=== PATIENT | female | born 1960 ===

== ENCOUNTER → 2020-06-23 12:51 | Outpatient (BNVA) | payer MEDICARE, MEDICAID, SELFPAY | PROVIDERS: PCP Internal Medicine; Referring Provider Internal Medicine; Visit Provider Nurse Practitioner | DX: K58.2 Mixed irritable bowel syndrome (principal); R14.0 Abdominal distension (gaseous); K21.9 Gastro-esophageal reflux disease without esophagitis; K29.70 Gastritis, unspecified, without bleeding; Z91.09 Other allergy status, other than to drugs and biological substances | CPT/HCPCS: 99214 ==

== ENCOUNTER 2020-06-30 10:08 | Emergency (ER) | payer MEDICARE, MEDICAID, SELFPAY ==
[2020-06-30 10:50] VITALS: BP 157/74; PULSE 60
--- NOTE | 2020-06-30 10:51 | ECG_ITS ---
Test Reason : HEADACHE Blood Pressure : / mmHG Vent. Rate : 063 BPM Atrial Rate : 063 BPM P-R Int : 164 ms QRS Dur : 076 ms QT Int : 408 ms P-R-T Axes : 016 -01 027 degrees QTc Int : 417 ms Normal sinus rhythm Normal ECG When compared with ECG of 07-JUL-2019 09:51, No significant changes seen Referred By: Emily Vieyra Electronically Signed By:EDI LEMOS MD
--- NOTE | 2020-06-30 10:52 | XR_ITS ---
EXAMINATION: CT OF THE ABDOMEN AND PELVIS WITHOUT IV CONTRAST CLINICAL INFORMATION: Right flank pain. Evaluate for stone. COMPARISON: Previous abdominal ultrasound July 2018 and CTA of the chest November 2018 TECHNIQUE: Axial images through the abdomen and pelvis without oral or IV contrast. Sagittal and coronal reconstructions on the technologist workstation were performed. Patient dose 7 1 0 mg/cm. FINDINGS: There are 2 adjacent 3 mm peripheral left lower lobe nodule axial image 62 and 73 series 4. There is a 2 x 4 mm peripheral right lower lobe nodule posterior costophrenic sulcus axial image 84 series 4. Comparison with previous CTA of the chest is difficult to motion artifact at the lung bases. Right lower lobe pulmonary nodule may be seen axial image 295 series 7. The liver is unremarkable. The gallbladder has been removed. There is no biliary duct dilatation. Spleen is unremarkable. The pancreas is unremarkable. The adrenal glands and kidneys are unremarkable. No hydronephrosis or stone is seen. The bladder is unremarkable. The uterus and adnexa are unremarkable. There is fatty infiltration the wall of the right colon. This is a nonspecific finding. No evidence of active colitis is seen. Small and large bowel is otherwise unremarkable. The appendix is unremarkable. The stomach is unremarkable. There is mild diastasis of the rectus muscles and small umbilical hernia containing fat. No ascites or adenopathy is seen. There is a mild thoracolumbar scoliosis. Bony structures are otherwise unremarkable. IMPRESSION: No stone or hydronephrosis. Small bilateral pulmonary nodules.
[2020-06-30 10:56] VITALS: BP 130/71; PULSE 72; RESP 18; TEMP 36.8; O2SAT 100; BMI 34.7
--- NOTE | 2020-06-30 10:56 | ED.HA ---
HPI - Headache General Chief Complaint: Back Pain/Injury Stated Complaint: headache, dizziness Time Seen by Provider: 06/30/20 10:38 Source: patient Mode of arrival: ambulatory Limitations: no limitations History of Present Illness HPI Narrative: 59-year-old female with a past medical history of COPD, asthma, PE, IBS, gallstones, GERD, migraines, gastritis, hypertension presenting to ED complaining of right flank pain radiating to abdomen x1 week. Also reports headache with intermittent dizziness / feels off balance. Admits symptoms started as typical migraine, have just been persistent, unrelieved with Tylenol at home. Headache not maximal at onset. Denies vision changes, fevers/chills, nausea / vomiting, dysuria /hematuria MD elicited complaint: headache Related Data Home Medications Medication Instructions Recorded Confirmed albuterol sulfate mg INHALATION TID PRN 06/23/20 benralizumab 30 mg/mL subcutaneous mg SUBCUT 06/23/20 syringe budesonide-formoterol HFA 80 2 puff INHALATION BID 06/23/20 mcg-4.5 mcg/actuation aerosol inhaler ipratropium 0.5 mg-albuterol 3 mg ml INHALATION Q6H PRN 06/23/20 (2.5 mg base)/3 mL nebulization soln lisinopril 10 mg tablet 10 mg PO DAILY 06/23/20 montelukast 10 mg tablet 10 mg PO DAILY 06/23/20 omalizumab 150 mg subcutaneous mg SUBCUT 06/23/20 solution Previous Rx's Medication Instructions Recorded omeprazole 40 mg capsule,delayed 40 mg PO BID 30 Days #60 cap 06/23/20 release sucralfate 1 gram tablet 1 g PO ONCE #60 tab 06/23/20 Allergies Allergy/AdvReac Type Severity Reaction Status Date / Time vancomycin [VANCOMYCIN] Allergy Severe ANAPHYLAXIS, Verified 06/30/20 10:54 hives aspirin [ASPIRIN] Allergy Intermediate rash, Verified 06/30/20 10:54 asthma codeine [CODEINE] Allergy Mild rash Verified 06/30/20 10:54 egg [EGGS] Allergy Mild VOMITING Verified 06/30/20 10:54 peanut [PEANUTS] Allergy Mild HIVES,DIARR Verified 06/30/20 10:54 HEA seafood Allergy Anaphylaxis Verified 06/30/20 10:54 Review of Systems Review of Systems: Constitutional: No Weight loss, No Fever, No Chills, No Night Sweats Eyes: No Eye Pain, No Vision Changes Cardiovascular: No Chest Pain, SOB chronically, No Dyspnea on Exertion, No Orthopnea, No Edema Respiratory: No Cough, No Sputum, No Wheezing Gastrointestinal: No Nausea, No Vomiting, No Diarrhea, No Constipation, No Abdominal pain, No Hematochezia, No Melena Genitourinary: No irregular bleeding, No Dysuria, No Urinary Frequency, No Hematuria, No Urinary Incontinence, No Urgency, +R Flank Pain, No Urinary Flow Changes, No Hesitancy Musculoskeletal: No joint pain, No Myalgias, No Joint Swelling Skin: No Skin Lesions, No rash Neuro: No Weakness, No Numbness, No Paresthesias, No Loss of Consciousness, + Dizziness, + Headache Yes all other systems are reviewed and are negative [facility] Past Medical History Attestation statement: The following information was validated with the patient. Medical History (Updated 06/30/20 @ 10:58 by Victoria Franco) Hypertension IBS (irritable bowel syndrome) Pre-eclampsia Surgical History (Updated 06/22/20 @ 11:32 by SHYANN Manning) H/O colonoscopy History of section History of cholecystectomy History of surgical removal of pilonidal cyst Hx of esophagogastroduodenoscopy S/P tonsillectomy Family History Family History (Updated 06/22/20 @ 11:34 by SHYANN Manning) Father Heart attack GERD (gastroesophageal reflux disease) Peptic ulcer disease Mother CHF (congestive heart failure) Afib Diverticulitis History of bowel resection Hypothyroid Social History Social History (Updated 06/23/20 @ 13:02 by Brandi Hale MA) Household Members: None Housing: Apartment Alcohol intake: never Smoking Status: Never smoker Use of substances other than those prescribed or required for medical reasons: No Advance Directives: No Advance Directives Information Provided: No Physical Exam Vital Signs: Vital Signs: Vital Signs Temp Pulse Resp BP Pulse Ox 06/30/20 12:19 62 16 153/66 H 100 06/30/20 11:12 63 178/62 H 100 06/30/20 10:56 98.2 F 72 18 130/71 100 Body Mass Index 34.7 Const: General: cooperative and healthy appearing Orientation/consciousness: patient oriented x3 Limitations: no limitations HENMT: Head: Yes normal to inspection Ears: hearing grossly normal bilaterally General nose exam: Normal external nose present Face and sinus: Yes normal facial exam Eyes: General: appearance normal, both eyes and all related structures Pupils: Equal, round and reactive pupils present EOM: EOMs intact bilaterally Neck: Neck: Yes normal visual inspection, Yes full ROM and Yes no meningeal signs Chest: Other: +R lower mid-axially line chest wall ttp Chest palpation & inspection: normal inspection of the chest Resp: Effort & Inspection: normal respiratory effort Auscultation: clear to auscultation bilaterally, no crackles, no rales and no rhonchi Cardio: Rate: regular rate Heart sounds: S1 normal heart sound present and S2 normal heart sound present Peripheral pulses: Peripheral pulses 2+ throughout GI: Inspection: Yes normal to inspection Palpation (GI): Soft to palpation, Tenderness to palpation present (GI) in the epigastrum, no guarding and not rigid : General: Yes CVA tenderness on the right Skin: Rashes: no rashes Wounds: no wounds Neuro: General: patient oriented x3, gait normal, tone normal, moves all extremities, no meningeal signs, no focal motor deficits and CN's II-XI intact bilaterally Cranial nerves: Yes Equal, round and reactive pupils present Gait exam (Neuro): Normal gait present Motor exam (neuro): 5/5 motor strength present throughout Coordination: [id number] test normal Extrem: General: Yes normal to inspection Course Course Course Narrative: -1322-- labs unremarkable, troponin negative, UA negative -CXR without acute disease in the chest. No rib fractures -CTAP without stone or hydronephrosis. Small bilateral pulmonary nodules Reevaluation(s) Reevaluation #1: on re-evaluation patient reports symptomatic improvement. Lab/imaging results discussed with patient including worrisome signs and symptoms and strict return precautions. Patient's still with reproducible rib tenderness. Discussed likely MSK with negative workup, however strict return precautions discussed. She verbalized understanding feel safe for discharge Time: 13:30 MDM - Headache MDM Narrative Medical decision making narrative: 59 year-old female with a past medical history of COPD, asthma, PE, IBS, gallstones, GERD, migraines, gastritis, hypertension presenting to ED complaining of right flank pain radiating to abdomen x1 week. Also reports headache with intermittent dizziness / feels off balance. On exam VSS, NAD, abdomen soft +R Flank and epigastric ttp. no focal neuro deficits. Concern for renal stone/ pyelo vs rib fractures/pneumonia vs migraine headache vs dehydration. Low concern for meningitis /encephalitis /CVT or SAH plan: EKG, labs, UA, CXR/rib series, CT AP, symptomatic treatment, reassess Differential Diagnosis Differential diagnosis: Likely migraine and headache Lab Data Result diagrams: 06/30/20 11:31 06/30/20 11:31 Labs: Lab Results 06/30/20 06/30/20 06/30/20 Range/Units 11:31 11:31 11:31 WBC 4.9 (4.8-10.8) X10*3/uL RBC 4.46 (4.20-5.50) X10*6/uL Hgb 12.8 (12.0-16.0) g/dl Hct 38.0 (37-47) % MCV 85.2 (80-98) fL MCH 28.7 (27.0-33.0) pg MCHC 33.7 (31.0-35.0) g/dl RDW 11.8 (11.0-16.0) % Plt Count 178 (160-400) X10*3/uL MPV 11.7 (9.4-12.3) fL Immature Gran % (Auto) 0.2 (0.0-0.4) % Neut % (Auto) 68.6 (45-73) % Lymph % (Auto) 23.5 (20-40) % [place] % (Auto) 6.1 (2-11) % Eos % (Auto) 1.0 (0-4) % Baso % (Auto) 0.6 (0-2) % Lymph # (Auto) 1.2 (1.2-4.9) X10*3/uL [place] # (Auto) 0.3 (0.1-1.2) X10*3/uL Eos # (Auto) 0.1 (0.0-0.4) X10*3/uL Baso # (Auto) 0.0 (0.0-0.2) X10*3/uL Abs Immat Gran (auto) 0.01 (0.00-0.03) X10*3/uL Absolute Neuts (auto) 3.4 (2.0-8.3) X10*3/uL Absolute Nucleated RBC 0.000 (0.0-0.012) X10*3/uL Nucleated RBC % (auto) 0.0 (0.0-0.2) /100WBC Hold Blue Top SEE NOTE Sodium 141 (135-145) mmol/L Potassium 3.8 (3.3-5.1) mmol/l Chloride 105 (96-108) mmol/L Carbon Dioxide 28 (22-29) mmol/L Anion Gap 12 (12-20) BUN 13 (9-16) mg/dL Creatinine 0.71 (0.5-1.4) mg/dL Estim Creat Clear Calc 76.9 Estimated GFR > 60 Random Glucose 90 (60-115) mg/dL Calcium 8.9 (8.4-10.2) mg/dL Magnesium 1.9 (1.6-2.6) mg/dL Total Bilirubin 0.6 (0.0-1.0) mg/dL Direct Bilirubin 0.2 (0.0-0.5) mg/dL AST 29 (5-31) U/L ALT 29 (0-31) U/L Alkaline Phosphatase 151 H (39-117) U/L Troponin I High Sens (<3.5-17.0) ng/L Total Protein 6.8 (6.5-8.0) g/dL Albumin 4.1 (3.5-5.0) g/dL Lipase 26 (8-78) U/L Urine Color Urine Appearance Urine pH (5.0-8.0) Ur Specific [place] (1.005-1.025) Urine Protein (NEG-TRACE) MG/DL Urine Glucose (UA) (NEG) MG/DL Urine Ketones (NEG) MG/DL Urine Blood (NEG) Urine Nitrite (NEG) Ur Leukocyte Esterase (NEG) 06/30/20 06/30/20 Range/Units 11:31 12:13 WBC (4.8-10.8) X10*3/uL RBC (4.20-5.50) X10*6/uL Hgb (12.0-16.0) g/dl Hct (37-47) % MCV (80-98) fL MCH (27.0-33.0) pg MCHC (31.0-35.0) g/dl RDW (11.0-16.0) % Plt Count (160-400) X10*3/uL MPV (9.4-12.3) fL Immature Gran % (Auto) (0.0-0.4) % Neut % (Auto) (45-73) % Lymph % (Auto) (20-40) % [place] % (Auto) (2-11) % Eos % (Auto) (0-4) % Baso % (Auto) (0-2) % Lymph # (Auto) (1.2-4.9) X10*3/uL [place] # (Auto) (0.1-1.2) X10*3/uL Eos # (Auto) (0.0-0.4) X10*3/uL Baso # (Auto) (0.0-0.2) X10*3/uL Abs Immat Gran (auto) (0.00-0.03) X10*3/uL Absolute Neuts (auto) (2.0-8.3) X10*3/uL Absolute Nucleated RBC (0.0-0.012) X10*3/uL Nucleated RBC % (auto) (0.0-0.2) /100WBC Hold Blue Top Sodium (135-145) mmol/L Potassium (3.3-5.1) mmol/l Chloride (96-108) mmol/L Carbon Dioxide (22-29) mmol/L Anion Gap (12-20) BUN (9-16) mg/dL Creatinine (0.5-1.4) mg/dL Estim Creat Clear Calc Estimated GFR Random Glucose (60-115) mg/dL Calcium (8.4-10.2) mg/dL Magnesium (1.6-2.6) mg/dL Total Bilirubin (0.0-1.0) mg/dL Direct Bilirubin (0.0-0.5) mg/dL AST (5-31) U/L ALT (0-31) U/L Alkaline Phosphatase (39-117) U/L Troponin I High Sens < 3.5 (<3.5-17.0) ng/L Total Protein (6.5-8.0) g/dL Albumin (3.5-5.0) g/dL Lipase (8-78) U/L Urine Color COLORLESS Urine Appearance CLEAR Urine pH 7.0 (5.0-8.0) Ur Specific [place] <= 1.005 (1.005-1.025) Urine Protein NEG (NEG-TRACE) MG/DL Urine Glucose (UA) NEG (NEG) MG/DL Urine Ketones NEG (NEG) MG/DL Urine Blood NEG (NEG) Urine Nitrite NEG (NEG) Ur Leukocyte Esterase NEG (NEG) ECG Data Attestation: I personally reviewed and interpreted this ECG as follows: ECG interpretation date: 06/30/20 Interpretation: normal sinus rhythm. Rate 63. No STEMI. Good tracing Discharge Plan Discharge Prescriptions: No Action Xolair 150 mg recon soln subcut RF: 0 Fasenra 30 mg/mL syringe subcut RF: 0 ipratropium-albuterol 0.5 mg-3 mg(2.5 mg base)/3 mL solution for nebulization inhalation Q6H PRNRF: 0 montelukast 10 mg tablet 10 mg PO DAILY RF: 0 lisinopril 10 mg tablet 10 mg PO DAILY RF: 0 albuterol sulfate 2.5 mg /3 mL (0.083 %) solution for nebulization inhalation TID PRN (Reason: asthma) RF: 0 budesonide-formoterol [Symbicort] 80-4.5 mcg/actuation HFA aerosol inhaler 2 puff inhalation BID RF: 0 omeprazole 40 mg capsule,delayed release(DR/EC) 40 mg PO BID 30 Days Qty: 60 RF: 1 sucralfate [Carafate] 1 gram tablet 1 g PO ONCE Qty: 60 RF: 0
[2020-06-30 11:12] VITALS: BP 178/62; PULSE 63; O2SAT 100
[2020-06-30] MEDS: 0.9 % Sodium Chloride 1,000 ML 999 ML IVCONT (11:33)
[2020-06-30] MEDS: diphenhydrAMINE HCL 50 MG/ML VIAL 25 MG IVPUSH (11:34)
[2020-06-30] MEDS: Metoclopramide HCl 10 MG/2 ML VIAL IVPUSH (11:34)
[2020-06-30 11:39] LABS: MANUAL DIFF FLAG NO
[2020-06-30 11:44] LABS: Basophils Percent Auto 0.6 % (0-2); Eosinophils Absolute Auto 0.1 X10*3/uL (0.0-0.4); Hemoglobin 12.8 g/dl (12.0-16.0); Imm Gran Abs Auto 0.01 X10*3/uL (0.00-0.03); Imm Gran Pct Auto 0.2 % (0.0-0.4); Lymphocytes Absolute Auto 1.2 X10*3/uL (1.2-4.9); Lymphocytes Percent Auto 23.5 % (20-40); Mean Corpuscular HGB Conc 33.7 g/dl (31.0-35.0); Mean Corpuscular Hemoglobin 28.7 pg (27.0-33.0); Mean Corpuscular Volume 85.2 fL (80-98); Mean Platelet Volume 11.7 fL (9.4-12.3); Monocytes Absolute Auto 0.3 X10*3/uL (0.1-1.2); Monocytes Percent Auto 6.1 % (2-11); Neutrophils Absolute Auto 3.4 X10*3/uL (2.0-8.3); Neutrophils Percent Auto 68.6 % (45-73); Platelet Count 178 X10*3/uL (160-400); Red Blood Count 4.46 X10*6/uL (4.20-5.50); Red Cell Distribution Width 11.8 % (11.0-16.0); White Blood Count 4.9 X10*3/uL (4.8-10.8)
[2020-06-30 12:19] VITALS: BP 153/66; PULSE 62; RESP 16; O2SAT 100
[2020-06-30 12:20] LABS: Alanine Aminotransferase 29 U/L (0-31); Albumin Level 4.1 g/dL (3.5-5.0); Alkaline Phosphatase 151 U/L (39-117); Anion Gap 12 (12-20); Aspartate Amino Transferase 29 U/L (5-31); Bilirubin Direct 0.2 mg/dL (0.0-0.5); Bilirubin Total 0.6 mg/dL (0.0-1.0); Blood Urea Nitrogen 13 mg/dL (9-16); Calcium 8.9 mg/dL (8.4-10.2); Carbon Dioxide 28 mmol/L (22-29); Chloride 105 mmol/L (96-108); Creatinine Clr Calc Pharmacy 76.9; Estimated Glomerular Filt Rate > 60; Glucose Random 90 mg/dL (60-115); Lipase 26 U/L (8-78); Magnesium 1.9 mg/dL (1.6-2.6); Potassium 3.8 mmol/l (3.3-5.1); Sodium 141 mmol/L (135-145); Total Protein 6.8 g/dL (6.5-8.0)
[2020-06-30 12:21] LABS: Troponin-I High Sensitivity < 3.5 ng/L (<3.5-17.0)
[2020-06-30 12:22] LABS: Appearance Urine CLEAR; Color Urine COLORLESS; Glucose Urine UA NEG (NEG); Leukocyte Esterase Urine NEG (NEG); Nitrite Urine NEG (NEG); Specific Gravity - Urine <= 1.005 (1.005-1.025); Urine Blood NEG (NEG); Urine Ketones NEG (NEG); Urine Protein NEG (NEG-TRACE)
[2020-06-30 13:47] VITALS: BP 131/73; PULSE 65
[2020-06-30 13:48] VITALS: BP 152/68; PULSE 61
== END 2020-06-30 13:52 | disposition home or self-care (01) ==
PROVIDERS: Physician Assistant; Emergency Provider Emergency Medicine; PCP Internal Medicine
DX: G43.909 Migraine, unspecified, not intractable, without status migrainosus (principal); R10.9 Unspecified abdominal pain; R42 Dizziness and giddiness; I10 Essential (primary) hypertension; J44.9 Chronic obstructive pulmonary disease, unspecified; Z79.899 Other long term (current) drug therapy
CPT/HCPCS: 36415; 71101; 74176; 80048; 80076; 81003; 83690; 83735; 84484; 85025; 93005; 96361; 96374; 96375; 99285; J1200; J2765

== ENCOUNTER → 2020-07-08 12:45 | Outpatient (BNVA) | payer MEDICARE, MEDICAID, SELFPAY | PROVIDERS: PCP Internal Medicine; Visit Provider Nurse Practitioner | DX: K58.2 Mixed irritable bowel syndrome (principal); R14.0 Abdominal distension (gaseous); K21.9 Gastro-esophageal reflux disease without esophagitis; K90.89 Other intestinal malabsorption; Z79.899 Other long term (current) drug therapy; Z90.49 Acquired absence of other specified parts of digestive tract | CPT/HCPCS: 99213 ==

== ENCOUNTER 2020-10-25 13:51 | Emergency (ER) | payer MEDICARE, MEDICAID, SELFPAY ==
--- NOTE | ~2020-10-25 | XR_ITS ---
EXAMINATION: XR CHEST CLINICAL INFORMATION: Cough and shortness of breath COMPARISON: 06/30/2020 TECHNIQUE: Frontal view of the chest was obtained. FINDINGS: The lungs are well expanded. Mild bronchial wall thickening. No consolidation. No edema or effusion. No pneumothorax. The cardiomediastinal silhouette is within normal limits. Mild scoliotic curvature of the spine. XR/XR chest 1V IMPRESSION: No consolidation. Bronchial wall thickening can be seen with a small airways process such as asthma or atypical/viral infection.
[2020-10-25 14:27] VITALS: BP 161/77; PULSE 81; RESP 18; TEMP 36.8; O2SAT 99; BMI 31.2
--- NOTE | 2020-10-25 14:56 | ED_ITS ---
HPI - URI/Sore Throat General Chief Complaint: Upper Respiratory Symptoms Stated Complaint: +covid Time Seen by Provider: 10/25/20 14:28 Source: patient Mode of arrival: ambulatory Limitations: no limitations History of Present Illness HPI Narrative: 60-year-old female with a past medical history of PE not on anticoagulation, asthma, hypertension, gastritis, migraines, osteoporosis, GERD, IBS here with complaints of cough, shortness of breath, right-sided rib pain, nausea and diarrhea for 6 days. Patient although she was diagnosed with COVID 6 days ago. No fevers, chills, leg swelling or pain, chest pain, vomiting or abdominal pain. Finish course of prednisone for 5 days yesterday. Taking albuterol inhaler and nebulizer with continued symptoms. MD elicited complaint: cough Related Data Home Medications Medication Instructions Recorded Confirmed albuterol sulfate 2.5 mg INHALATION TID PRN 06/23/20 07/27/20 budesonide-formoterol HFA 80 2 puff INHALATION BID 06/23/20 07/27/20 mcg-4.5 mcg/actuation aerosol inhaler ipratropium 0.5 mg-albuterol 3 mg 0.5 ml INHALATION Q6H PRN 06/23/20 07/27/20 (2.5 mg base)/3 mL nebulization soln lisinopril 10 mg tablet 10 mg PO DAILY 06/23/20 07/27/20 montelukast 10 mg tablet 10 mg PO DAILY 06/23/20 07/27/20 Previous Rx's Medication Instructions Recorded omeprazole 40 mg capsule,delayed 40 mg PO BID 30 Days #60 cap 06/23/20 release acetaminophen [Tylenol Extra 500 mg PO Q6H PRN #20 tab 06/30/20 Strength] cyclobenzaprine 5 mg PO Q8H PRN 5 Days #14 tab 06/30/20 lidocaine [Lidoderm] 1 patch TOPICAL DAILY PRN #30 ea 06/30/20 MDD remove after 12 hours dicyclomine 10 mg capsule 10 mg PO QID 30 Days #120 cap 07/08/20 sucralfate 1 gram tablet 1 g PO DAILY #60 tab 09/07/20 azithromycin See Rx Instructions .ROUTE 10/25/20 .COMPLEX #6 tab dicyclomine 10 mg PO TID #10 cap 10/25/20 lidocaine [Lidoderm] 1 patch TOPICAL DAILY #15 ea 10/25/20 ondansetron 4 mg PO Q6H PRN #10 tab 10/25/20 Allergies Allergy/AdvReac Type Severity Reaction Status Date / Time vancomycin [VANCOMYCIN] Allergy Severe ANAPHYLAXIS, Verified 06/30/20 10:54 hives aspirin [ASPIRIN] Allergy Intermediate rash, Verified 06/30/20 10:54 asthma codeine [CODEINE] Allergy Mild rash Verified 06/30/20 10:54 egg [EGGS] Allergy Mild VOMITING Verified 06/30/20 10:54 peanut [PEANUTS] Allergy Mild HIVES,DIARR Verified 06/30/20 10:54 HEA seafood Allergy Anaphylaxis Verified 06/30/20 10:54 Review of Systems Review of Systems: Yes all other systems are reviewed and are negative Constitutional: Constitutional: Reports no additional constitutional complaints, Denies body ache(s), Denies chills, Denies fever(s), Denies headache(s) and Denies weakness Eyes: Eyes: Reports no additional eye complaints and Denies change in vision ENT: Reports system reviewed and no additional complaints, except as documente d, Denies dizziness, Denies headache(s), Denies nasal congestion, Denies nasal discharge and Denies neck pain Cardiovascular: Cardiovascular: Reports no additional cardiovascular complaints, Denies chest pain, Denies leg edema and Reports dyspnea Respiratory: Respiratory: Reports no additional respiratory complaints, Reports cough and Reports dyspnea Gastrointestinal: Gastrointestinal: Reports no additional gastrointestinal complaints, Denies abdominal pain, Reports diarrhea, Reports nausea and Denies vomiting Genitourinary: Genitourinary: Reports no additional female genitourinary complaints and Denies urinary incontinence Musculoskeletal: Musculoskeletal: Reports no additional musculoskeletal complaints, Denies back pain, Denies arthralgias, Denies joint swelling, Denies neck pain, Denies numbness and Denies tingling Integumentary/Breasts: Skin/Breast: Reports system reviewed and no additional complaints, except as docu and Denies rash Neurologic: Denies Abnormal speech present, Denies dizziness, Denies headache(s), Denies numbness, Denies tingling and Denies weakness PMFSH Past Medical History Attestation statement: The following information was validated with the patient. Source: old records reviewed and nursing notes reviewed Medical History Hypertension IBS (irritable bowel syndrome) Pre-eclampsia Surgical History H/O colonoscopy History of section History of cholecystectomy History of surgical removal of pilonidal cyst Hx of esophagogastroduodenoscopy S/P tonsillectomy Family History Family History Father Heart attack GERD (gastroesophageal reflux disease) Peptic ulcer disease Mother CHF (congestive heart failure) Afib Diverticulitis History of bowel resection Hypothyroid Maternal Aunt Diabetes Maternal Uncle Cancer Social History Social History Household Members: None Housing: Apartment Alcohol intake: never Smoking Status: Never smoker Advance Directives: No Advance Directives Information Provided: No Physical Exam Vital Signs: Vital Signs: Last Vital Signs Temp 98.2 F 10/25/20 14:27 Pulse 88 10/25/20 16:34 Resp 20 10/25/20 16:34 BP 161/77 H 10/25/20 14:27 Pulse Ox 100 10/25/20 16:34 Body Mass Index 31.2 Const: General: cooperative, healthy appearing, comfortable and no acute distress Orientation/consciousness: patient oriented x3 Limitations: no limitations HENMT: Head: Yes normal to inspection Ears: hearing grossly normal bilaterally General nose exam: Normal external nose present Face and sinus: Yes normal facial exam Mouth: Normal oral and palatal mucosa present Throat: Yes posterior oropharynx normal Eyes: General: appearance normal, both eyes and all related structures Pupils: Equal, round and reactive pupils present Neck: Neck: Yes normal visual inspection Chest: Chest palpation & inspection: normal inspection of the chest Resp: Effort & Inspection: normal respiratory effort Auscultation: clear to auscultation bilaterally Cardio: Rate: regular rate Rhythm: regular rhythm Peripheral pulses: Peripheral pulses 2+ throughout GI: Inspection: Yes normal to inspection Palpation (GI): Soft to palpation and nontender Auscultation: normal bowel sounds Back/Spine/Pelvis: Thoracic/Lumbar Spine: thoracic and lumbar spine normal to inspection Skin: General skin exam: no rashes or lesions noted Neuro: General: patient oriented x3, no focal motor deficits and normal sensation to monofilament Cranial nerves: Yes Equal, round and reactive pupils present Cognition (Neuro): normal cognition Speech: No Abnormal speech present Gait exam (Neuro): Normal gait present Motor exam (neuro): 5/5 motor strength present throughout Extrem: General: Yes normal to inspection, Yes no pedal edema and Yes no calf tenderness Course Course Course Narrative: 60-year-old female known COVID positive here with cough, shortness of breath, diarrhea, nausea and right-sided rib pain x 6 days. No fevers, chills, chest pain, leg swelling or pain. Vital signs stable. Lung sounds clear. Will check chest x-ray, labs. 1600-CXR c/w with atypical or viral PNA. No signs of symptoms of systemic infections. Labs reviewed and unremarkable. D dimer under cut of for VTE. Went to discuss findings with the patient. She tells me she is worried about her IBS and being on antibiotics. We discussed taking a probiotic with the antibiotic as well as food like yogurt and cheese. Concerned for nausea. will give small amount of zofran. Recommended taking all medications with food. Concerned about right sided chest wall pain, discussed using lidoderm patches, OTC medications. Offered cough suppressants but patient declined, we discussed using honey as needed for cough. She tells me she has adequate refills on her albuterol and nebulizer machine at home. She feels she needs oxygen at home however I explained to her that she does not meet requirements for home oxygen as her level is >98% here. LS CTA, speaking full sentences throughout entire discussion. Tolerating PO with no vomiting. Patient also tells me that she lives at home alone and she is worried about going home. I did offer short-term rehab to her but she declined this. I offered case management involvement and home care services which the patient accepted. I spoke to the nurse case manager here in the emergency department who will look at the patient's insurance and set this up for her as what is covered. Reviewed worrisome signs and symptoms of when to return to the emergency department. Comfortable discharge home. MDM - URI/Sore Throat MDM Narrative Medical decision making narrative: Less likely PE with negative d dimer, no hypoxia, tachycardia or clinical signs/symptoms of a DVT. Medical Records Attestation: I reviewed the patient's medical records. Lab Data Attestation: I reviewed the patient's lab results. Result diagrams: 10/25/20 15:05 10/25/20 15:05 Labs: Lab Results 10/25/20 10/25/20 10/25/20 Range/Units 15:05 15:05 15:05 WBC 5.6 (4.8-10.8) X10*3/uL RBC 4.96 (4.20-5.50) X10*6/uL Hgb 13.8 (12.0-16.0) g/dl Hct 41.2 (37-47) % MCV 83.1 (80-98) fL MCH 27.8 (27.0-33.0) pg MCHC 33.5 (31.0-35.0) g/dl RDW 11.7 (11.0-16.0) % Plt Count 201 (160-400) X10*3/uL MPV 11.3 (9.4-12.3) fL Immature Gran % (Auto) 0.2 (0.0-0.4) % Neut % (Auto) 67.7 (45-73) % Lymph % (Auto) 25.4 (20-40) % Mcpherson % (Auto) 5.0 (2-11) % Eos % (Auto) 1.3 (0-4) % Baso % (Auto) 0.4 (0-2) % Lymph # (Auto) 1.4 (1.2-4.9) X10*3/uL Mcpherson # (Auto) 0.3 (0.1-1.2) X10*3/uL Eos # (Auto) 0.1 (0.0-0.4) X10*3/uL Baso # (Auto) 0.0 (0.0-0.2) X10*3/uL Abs Immat Gran (auto) 0.01 (0.00-0.03) X10*3/uL Absolute Neuts (auto) 3.8 (2.0-8.3) X10*3/uL Absolute Nucleated RBC 0.000 (0.0-0.012) X10*3/uL Nucleated RBC % (auto) 0.0 (0.0-0.2) /100WBC PT 13.0 (10.8-13.0) SEC INR 1.1 (0.9-1.1) D-Dimer 211 NG/ML Sodium 139 (135-145) mmol/L Potassium 4.0 (3.3-5.1) mmol/L Chloride 107 (96-108) mmol/L Carbon Dioxide 23 (22-29) mmol/L Anion Gap 13 (12-20) BUN 11 (9-16) mg/dL Creatinine 0.73 (0.5-1.4) mg/dL Estim Creat Clear Calc 72.8 Estimated GFR > 60 Random Glucose 89 (60-115) mg/dL Calcium 8.7 (8.4-10.2) mg/dL Imaging Data Chest x-ray: Attestation: I personally reviewed and interpreted this imaging study as follows: Radiologist's impression: EXAMINATION: XR CHEST CLINICAL INFORMATION: Cough and shortness of breath COMPARISON: 06/30/2020 TECHNIQUE: Frontal view of the chest was obtained. FINDINGS: The lungs are well expanded. Mild bronchial wall thickening. No consolidation. No edema or effusion. No pneumothorax. The cardiomediastinal silhouette is within normal limits. Mild scoliotic curvature of the spine. XR/XR chest 1V IMPRESSION: No consolidation. Bronchial wall thickening can be seen with a small airways process such as asthma or atypical/viral infection. Discharge Plan Discharge Clinical Impression: Viral pneumonia Patient Disposition: Home, Self-Care Instructions: Viral Pneumonia (ED) Additional Instructions: You are positive for COVID-19. You need to quarantine for a total of 10 days from when you tested positive and your symptoms mostly resolved for 24 hours before ending your quarantine. CDC does not recommend retesting for COVID Take Tylenol as needed for pain or fever Increase fluids, rest Start your antibiotics tomorrow. Continue your medications for her asthma For your cough you may take a tbsp of honey at bedtime to assist with this You have been prescribed Lidoderm patches to apply to your ribs to help with the pain You have also been prescribed nausea medicine and medicine to help with your abdominal cramps. We do not recommend taking antidiarrheal medications as this can have side effects which can be life-threatening when you have viral diarrhea. Take a probiotic daily. Case management will reach out to you at home to see if you have any other ad ditional needs at home. Prescriptions: New lidocaine [Lidoderm] 5 % adhesive patch,medicated 1 patch topical DAILY Qty: 15 RF: 0 azithromycin 250 mg tablet See Rx Instructions .ROUTE .COMPLEX Qty: 6 RF: 0 dicyclomine 10 mg capsule 10 mg PO TID Qty: 10 RF: 0 ondansetron 4 mg tablet,disintegrating 4 mg PO Q6H PRN (Reason: nausea and vomiting) Qty: 10 RF: 0 No Action sucralfate 1 gram tablet 1 g PO DAILY Qty: 60 RF: 3 lidocaine [Lidoderm] 5 % adhesive patch,medicated 1 patch topical DAILY MDD remove after 12 hours PRN (Reason: pain) Qty: 30 RF: 0 cyclobenzaprine 5 mg tablet 5 mg PO Q8H PRN (Reason: pain (scale score 7-10)) 5 Days Qty: 14 RF: 0 acetaminophen [Tylenol Extra Strength] 500 mg tablet 500 mg PO Q6H PRN (Reason: pain or fever) Qty: 20 RF: 0 ipratropium-albuterol 0.5 mg-3 mg(2.5 mg base)/3 mL solution for nebulization 0.5 ml inhalation Q6H PRN (Reason: Wheezing) RF: 0 montelukast 10 mg tablet 10 mg PO DAILY RF: 0 lisinopril 10 mg tablet 10 mg PO DAILY RF: 0 albuterol sulfate 2.5 mg /3 mL (0.083 %) solution for nebulization 2.5 mg inhalation TID PRN (Reason: asthma) RF: 0 budesonide-formoterol [Symbicort] 80-4.5 mcg/actuation HFA aerosol inhaler 2 puff inhalation BID RF: 0 omeprazole 40 mg capsule,delayed release(DR/EC) 40 mg PO BID 30 Days Qty: 60 RF: 1 dicyclomine 10 mg capsule 10 mg PO QID 30 Days Qty: 120 RF: 3 Referrals: Iqra Nelson MD [Primary Care Provider] - 2 days Interventions: ED Discharge Assessment Last Done: 10/25/20 16:35 Discharge Date/Time: 10/25/20 16:35
[2020-10-25 15:09] LABS: MANUAL DIFF FLAG NO
[2020-10-25 15:11] LABS: Basophils Percent Auto 0.4 % (0-2); Eosinophils Absolute Auto 0.1 X10*3/uL (0.0-0.4); Eosinophils Percent Auto 1.3 % (0-4); Hematocrit 41.2 % (37-47); Hemoglobin 13.8 g/dl (12.0-16.0); Imm Gran Abs Auto 0.01 X10*3/uL (0.00-0.03); Imm Gran Pct Auto 0.2 % (0.0-0.4); Lymphocytes Absolute Auto 1.4 X10*3/uL (1.2-4.9); Lymphocytes Percent Auto 25.4 % (20-40); Mean Corpuscular HGB Conc 33.5 g/dl (31.0-35.0); Mean Corpuscular Hemoglobin 27.8 pg (27.0-33.0); Mean Corpuscular Volume 83.1 fL (80-98); Mean Platelet Volume 11.3 fL (9.4-12.3); Monocytes Absolute Auto 0.3 X10*3/uL (0.1-1.2); Neutrophils Absolute Auto 3.8 X10*3/uL (2.0-8.3); Neutrophils Percent Auto 67.7 % (45-73); Platelet Count 201 X10*3/uL (160-400); Red Blood Count 4.96 X10*6/uL (4.20-5.50); Red Cell Distribution Width 11.7 % (11.0-16.0); White Blood Count 5.6 X10*3/uL (4.8-10.8)
[2020-10-25 15:31] LABS: Anion Gap 13 (12-20); Blood Urea Nitrogen 11 mg/dL (9-16); Calcium 8.7 mg/dL (8.4-10.2); Carbon Dioxide 23 mmol/L (22-29); Chloride 107 mmol/L (96-108); Creatinine Clr Calc Pharmacy 72.8; Estimated Glomerular Filt Rate > 60; Glucose Random 89 mg/dL (60-115); Sodium 139 mmol/L (135-145)
[2020-10-25 15:38] LABS: INTERNATIONAL NORM RATIO 1.1 (0.9-1.1)
[2020-10-25 15:41] LABS: D Dimer 211 NG/ML
[2020-10-25 16:34] VITALS: PULSE 88; RESP 20; O2SAT 100
--- NOTE | 2020-10-25 17:14 | MHC.CM.ED ---
CM met with pt at nurses request. Pt upset about going home. Very stressed as her and mother are both hospitalized, one a [facility] and one at [facility]. Concerned about COVID diagnosis and wanting to be better now. Also concerned that she has pneumonia and is going home. Pt has script for antibiotics. Pt agreeable to having VNA. Pt a bit weepy with concern over how she will care for family when they come home if she is still sick. CM listened and allowed pt to vent. Reviewed COVID disease process with pt. Pt understands it can take weeks to feel better and that symptoms are treated. If her breathing worsens, pt instructed to return to the ED. Pt in no acute distress, speaking in long sentences. Pt arranging for ride home. Pt agreeable to referral to NA. Referral placed.
== END 2020-10-25 16:35 | disposition home or self-care (01) ==
PROVIDERS: Nurse Practitioner Family; Emergency Provider Emergency Medicine; PCP Internal Medicine
DX: J12.9 Viral pneumonia, unspecified (principal); Z86.16 Personal history of COVID-19; I10 Essential (primary) hypertension; Z79.899 Other long term (current) drug therapy
CPT/HCPCS: 36415; 71045; 80048; 85025; 85379; 85610; 99284

== ENCOUNTER → 2020-11-11 09:23 | Outpatient (BNVA) | payer MEDICARE, MEDICAID, SELFPAY | PROVIDERS: PCP Internal Medicine; Visit Provider Hospitalist | DX: J18.9 Pneumonia, unspecified organism (principal); U07.1 COVID-19; J45.40 Moderate persistent asthma, uncomplicated | CPT/HCPCS: Q3014 ==

== ENCOUNTER 2020-11-12 15:20 | Outpatient (REF) | payer MEDICARE, MEDICAID, SELFPAY ==
--- NOTE | ~2020-11-12 | XR_ITS ---
EXAMINATION: XR CHEST CLINICAL INFORMATION: COVID COMPARISON: 10/25/2020 TECHNIQUE: 2 views of the chest were obtained. FINDINGS: Normal symmetric lung volumes. No parenchymal consolidation. No pleural effusion. No pneumothorax. Cardiomediastinal silhouette and pulmonary vascularity are within normal limits. No acute osseous abnormalities. XR/XR chest 2V IMPRESSION: No acute findings
[2020-11-12 15:55] LABS: MANUAL DIFF FLAG NO
[2020-11-12 15:58] LABS: Basophils Percent Auto 0.1 % (0-2); Hematocrit 44.7 % (37-47); Hemoglobin 14.6 g/dl (12.0-16.0); Imm Gran Abs Auto 0.13 X10*3/uL (0.00-0.03); Lymphocytes Absolute Auto 1.9 X10*3/uL (1.2-4.9); Mean Corpuscular HGB Conc 32.7 g/dl (31.0-35.0); Mean Corpuscular Hemoglobin 27.1 pg (27.0-33.0); Mean Corpuscular Volume 83.1 fL (80-98); Mean Platelet Volume 11.3 fL (9.4-12.3); Monocytes Absolute Auto 0.8 X10*3/uL (0.1-1.2); Monocytes Percent Auto 5.8 % (2-11); Neutrophils Absolute Auto 10.6 X10*3/uL (2.0-8.3); Neutrophils Percent Auto 79.1 % (45-73); Platelet Count 348 X10*3/uL (160-400); Red Blood Count 5.38 X10*6/uL (4.20-5.50); Red Cell Distribution Width 12.5 % (11.0-16.0); White Blood Count 13.4 X10*3/uL (4.8-10.8)
[2020-11-12 16:06] LABS: D Dimer < 200 NG/ML
[2020-11-12 16:28] LABS: Troponin-I High Sensitivity 5.6 ng/L (<3.5-17.0)
[2020-11-12 17:04] LABS: Erythrocyte Sedimentation Rate 5 MM/HR (0-20)
[2020-11-15 08:10] LABS: SARS COV2 IgG Positive (Negative)
[2020-11-15 12:21] LABS: IgA 297 mg/dL (47-310); IgG 886 mg/dL (600-1640); IgM 130 mg/dL (50-300)
== END 2020-11-12 15:21 | disposition home or self-care (01) ==
LOC: HO.LAB 15:20
PROVIDERS: Visit Provider Hospitalist
DX: U07.1 COVID-19 (principal); J18.9 Pneumonia, unspecified organism; Z01.84 Encounter for antibody response examination
CPT/HCPCS: 36415; 71046; 82784; 84484; 85025; 85379; 85652; 86769

== ENCOUNTER → 2020-11-30 09:44 | Outpatient (BNVA) | payer MEDICARE, MEDICAID, SELFPAY | PROVIDERS: PCP Internal Medicine; Visit Provider Internal Medicine Pulmonary Disease | DX: J45.40 Moderate persistent asthma, uncomplicated (principal); B94.8 Sequelae of other specified infectious and parasitic diseases; Z91.09 Other allergy status, other than to drugs and biological substances | CPT/HCPCS: 99212 ==

== ENCOUNTER 2020-12-28 13:26 | Outpatient (REF) | payer MEDICARE, MEDICAID, SELFPAY ==
--- NOTE | ~2020-12-28 | CT_ITS ---
EXAMINATION: CTA OF THE CHEST CLINICAL INFORMATION: Chest pain. COMPARISON: Previous chest x-rays, most recent October 2020 and chest CTA November 2018. TECHNIQUE: Axial images through the chest following IV contrast. Sagittal, coronal and 3-D MIP reconstructions on the technologist workstation were performed. Patient dose 246 mGy-cm. FINDINGS: The pulmonary arteries are well opacified with contrast. There is no evidence of pulmonary embolism. The heart does not appear enlarged. The thoracic aorta is normal in caliber. There is no pericardial effusion. There are no enlarged hilar or mediastinal lymph nodes. There is mild biapical pleural and parenchymal scarring. There is a 3 mm right upper lobe nodule, axial image 155 series 7. There is a 3 mm peripheral or subpleural right middle lobe nodule, axial image series 7. There are 2 small peripheral 3 mm lower lobe nodules axial image 237 series 7. There may be a 4 mm perivascular right lower lobe nodule, axial image 257 series 7. There are 2 small 3 mm left lower lobe nodules, axial image 297 and 309 series 7. These are difficult to compare with previous chest CTA due to motion artifact. Most inferior bilateral lower lobe nodules are seen on previous abdominal and pelvic CT June 2020 and appear unchanged. There is no pleural effusion or pleural thickening. No chest wall mass or enlarged axillary lymph nodes are seen. Review at bone windows demonstrates curvature of the thoracic spine to the right. CT/CT abdomen pelvis w con IMPRESSION: No evidence of pulmonary embolism. Small bilateral pulmonary nodules largest measuring 4 mm. Comparison with previous chest CTA is difficult due to motion artifact. According to the UPDATED 2017 Fleischner Society recommendations, the advised follow-up imaging for less than 6 mm pulmonary nodule: Low risk, no chest CT follow-up needed and high risk, optional chest CT follow-up in one year. EXAMINATION: CT OF THE ABDOMEN AND PELVIS WITH IV CONTRAST CLINICAL INFORMATION: Right upper quadrant pain. COMPARISON: Previous CT of the abdomen and pelvis June 2020. TECHNIQUE: Axial images through the abdomen and pelvis following oral and 85 mL Omnipaque 350 intravenous contrast. Sagittal and coronal reconstructions on the technologist workstation were performed. Patient dose 535 mGy-cm. This CT examination was performed using dose optimization techniques as appropriate, variously including the following: *Automated exposure control *Adjustment of mA and/or kV according to patient size (this includes techniques or standardized protocols for targeted exams where dose is matched to indication/reason for exam; i.e. extremities or head) *Use of iterative reconstruction technique FINDINGS: The liver is unremarkable. The gallbladder has been removed. There is no biliary duct dilatation. The spleen is unremarkable. The pancreas is unremarkable. The adrenal glands and kidneys are unremarkable. The bladder is not optimally distended but appears unremarkable. The uterus and adnexa are unremarkable. The small and large bowel is unremarkable. The appendix is not identified. No inflammatory changes in the right lower quadrant are seen. The stomach is unremarkable. There is mild diastasis of the rectus muscles and small umbilical hernia containing fat. No ascites or adenopathy is seen. Vascular structures are unremarkable. Review at bone windows demonstrates mild curvature of the lower lumbar spine to the right. IMPRESSION: Unremarkable exam.
[2020-12-28] MEDS: Barium Sulfate Oral (Vanilla) 450 ML ORAL.SUSP 900 ML PO (16:06)
[2020-12-28] MEDS: iohexoL 350 MG/ML 100 ML INFUS..BTL IV (16:06)
== END 2020-12-28 13:27 | disposition home or self-care (01) ==
LOC: HO.CT 13:26
PROVIDERS: PCP Emergency Medicine; Visit Provider Emergency Medicine
DX: R07.9 Chest pain, unspecified (principal); R10.11 Right upper quadrant pain
CPT/HCPCS: 71275; 74177; Q9967

== ENCOUNTER → 2021-01-20 10:49 | Outpatient (BNVA) | payer MEDICARE, MEDICAID, SELFPAY | PROVIDERS: PCP Emergency Medicine; Visit Provider Internal Medicine Pulmonary Disease | DX: B94.8 Sequelae of other specified infectious and parasitic diseases (principal); J45.40 Moderate persistent asthma, uncomplicated; Z91.09 Other allergy status, other than to drugs and biological substances | CPT/HCPCS: 99212 ==

== ENCOUNTER 2021-01-24 09:44 | Outpatient (REF) | payer MEDICARE, MEDICAID, SELFPAY | END 2021-01-24 09:45 | disposition home or self-care (01) | LOC: HO.MDS 09:44 | PROVIDERS: PCP Emergency Medicine; Visit Provider Internal Medicine Pulmonary Disease | DX: J45.50 Severe persistent asthma, uncomplicated (principal) | CPT/HCPCS: 96372; J0517; Q0163 ==

== ENCOUNTER → 2021-02-01 12:59 | Outpatient (BNVA) | payer MEDICARE, MEDICAID, SELFPAY | PROVIDERS: PCP Internal Medicine; Visit Provider Internal Medicine Pulmonary Disease | DX: J45.40 Moderate persistent asthma, uncomplicated (principal); Z91.09 Other allergy status, other than to drugs and biological substances | CPT/HCPCS: 99212 ==

== ENCOUNTER → 2021-04-05 13:01 | Outpatient (BNVA) | payer OTHER, SELFPAY | PROVIDERS: PCP Internal Medicine; Visit Provider Internal Medicine Pulmonary Disease | DX: J45.40 Moderate persistent asthma, uncomplicated (principal); Z91.09 Other allergy status, other than to drugs and biological substances; B94.8 Sequelae of other specified infectious and parasitic diseases; R06.00 Dyspnea, unspecified | CPT/HCPCS: 99212 ==

== ENCOUNTER → 2021-04-08 12:21 | Outpatient (BNVA) | payer OTHER, SELFPAY | PROVIDERS: PCP Internal Medicine; Referring Provider Internal Medicine; Visit Provider Nurse Practitioner | DX: K21.9 Gastro-esophageal reflux disease without esophagitis (principal); K90.89 Other intestinal malabsorption; K29.70 Gastritis, unspecified, without bleeding; K80.20 Calculus of gallbladder without cholecystitis without obstruction; R14.0 Abdominal distension (gaseous); R10.9 Unspecified abdominal pain | CPT/HCPCS: 99212 ==

== ENCOUNTER 2021-04-21 12:12 | Outpatient (REF) | payer OTHER, SELFPAY ==
--- NOTE | ~2021-04-21 | MM_ITS ---
EXAMINATION: MM SCREENING DIGITAL BREAST TOMOSYNTHESIS, BILATERAL CLINICAL INFORMATION: Screening. Asymptomatic. Prior history bilateral implants, explanted decades ago. The lifetime risk of breast cancer based on the Tyrer-Cuzick Model is 7%. COMPARISON: Mammography: 01/29/2017 (new baseline) TECHNIQUE: Digital breast tomosynthesis is performed in both the craniocaudal and mediolateral oblique views along with computer-aided detection (CAD). Synthesized 2D images are generated from the tomosynthesis. FINDINGS: The breasts are almost entirely fatty (ACR BI-RADS breast composition Category a). There are no significant masses, abnormal calcifications, or other abnormalities. Intramammary node posterior upper outer left breast is stable. Skin contours are smooth. No significant changes. MM/MM tomosynthesis screening BI IMPRESSION: No mammographic evidence of malignancy. ASSESSMENT: BI-RADS 2: Benign RECOMMENDATION: Routine annual mammography screening. This patient's information was entered into a reminder system with a target due date for their next mammogram.
== END 2021-04-21 12:13 | disposition home or self-care (01) ==
LOC: HO.MAMMO 12:12
PROVIDERS: PCP Internal Medicine; Visit Provider Internal Medicine
DX: Z12.31 Encounter for screening mammogram for malignant neoplasm of breast (principal)
CPT/HCPCS: 77063; 77067

== ENCOUNTER → 2021-05-25 12:26 | Outpatient (REF) | payer OTHER, SELFPAY ==
--- NOTE | 2021-05-25 12:31 | CA_ITS ---
Transthoracic Echocardiogram Patient (Last, First, Middle): Yoselin Rodríguez Brody Gender: Female Date of : 1960 Age: 60 Procedure Date: 05/25/2021 Procedure Type: Transthoracic Echocardiogram Location: OP Height: 152.4 cm Weight: 72.58 kg BSA: 1.70 m2 Heart Rate: bpm BP: 140 / 75 mmHg Induction Heat Treater: YUKO Kim MD: Alejo Chiang MD Bellperson: Efren Rausch MD Symptoms: R06.00 - Dyspnea, unspecified Study Quality: Good ECG Rhythm: Sinus Conclusions: - Essentially normal study with grade 1 diastolic dysfunction Findings Left Ventricle Normal left ventricular size, thickness, and systolic function. The visually estimated ejection fraction is between 60-65%. Spectral Doppler is indicative of an impaired relaxation filling pattern. E/E prime ratio is <8, consistent with normal filling pressures. Right Ventricle Normal right ventricular cavity size and systolic function. Atria Both atria are normal in size. There is no evidence of interatrial shunt. Aortic Valve Normal aortic valve structure and function. There is no aortic valve stenosis. There is no aortic valve regurgitation. Mitral Valve Normal mitral valve structure and function. There is trace mitral valve regurgitation. There is no mitral valve stenosis. Pulmonic Valve The pulmonic valve is likely normal. Tricuspid Valve Likely normal tricuspid valve structure and function. There is trace tricuspid valve regurgitation. The right ventricular systolic pressure is normal. The right ventricular systolic pressure is 16 mmHg. Normal right atrial pressure. There is no evidence of pulmonary hypertension. Great Vessels All visible segments of the aorta are normal in size. The visualized portions of the pulmonary artery and branches are normal. Venous The inferior vena cava is normal in size and collapses greater than 50% with inspiration. Pericardium/Pleural There is no evidence of pericardial effusion. Prior Study Comparison No significant change compared to prior study dated: 03/21/2019. Measurements 2D Linear Measurements IVSd: 0.86 0.6-0.9/0.6-1.0 cm LVIDd: 4.36 3.9-5.3/4.2-5.9 cm LVIDd Index: 2.56 2.4-3.2/2.2-3.1 cm/m2 LVIDs: 2.71 2.0-3.6 cm LVPWd: 0.90 0.7-1.1 cm Ao Root: 2.90 2.1-3.5 cm LA Diam: 3.40 2.7-3.8/3.0-4.0 cm LAIDs Index: 2.00 1.5-2.3 cm/m2 LV Mass: 151.73 67-162/88-224 g LV Mass Index: 89.25 43-95/49-115 g/m2 LVOT Diam: 2.00 3.0+(-)1.3 cm 2D Systolic Function EF 4C: 58.50 >55% EF 2C: 53.80 >55% EF BiP: 55.90 >55% Mitral Valve MV Pk E: 0.74 MV PK A: 0.91 MV Decel Time: 331.00 E/A: 0.80 E'Lateral: 7.51 E'Medial: 6.53 E/E' Med: 11.30 E/E' Lat: 9.80 PHT: 97.00 MVA PHT: 2.27 Decel [place]: 2.23 Aortic Valve AoV Pk Andrew: 1.33 AoV Mn Andrew: 0.96 AoV VTI: 0.34 AoV Pk Grad: 7.00 Aov Mn Grad: 4.00 NUNO Cont.VTI: 2.30 LVOT LVOT Pk Andrew: 0.97 LVOT Mn Andrew: 0.65 LVOT VTI: 0.25 LVOT Pk Grad: 4.00 LVOT Mn Grad: 2.00 LVOT Diam: 2.00 LVOT Area: 3.14 Diastolic Function MV Pk E: 0.74 MV Pk A: 0.91 E/A: 0.80 E'Medial: 6.53 E/E' Med: 11.30 E' Laterial: 7.51 E/E' Lat: 9.80 Right Ventricle TAPSE (mm): 2.48 TVS' Andrew: 9.57 Tricuspid Valve TR Pk Andrew: 1.81 TR Pk Grad: 13.00 RA Press: 3.00 RVSP: 16.00 Great Vessels Aorta Ao Root-2D: 2.90 2.0-3.7 cm Ao Asc: 2.70 2.1-3.4 cm Ao Arch: 2.60 Updated in Other Vendor System with Status of Final Efren Rausch MD electronically signed on 05/26/2021 8:12:06 AM with status of Final
== END ==
LOC: HO.CARD 12:26
PROVIDERS: Visit Provider Internal Medicine Pulmonary Disease
DX: R06.00 Dyspnea, unspecified (principal)
CPT/HCPCS: 93306

== ENCOUNTER → 2021-06-03 14:07 | Outpatient (BNVA) | payer OTHER, SELFPAY | PROVIDERS: PCP Internal Medicine; Visit Provider Nurse Practitioner ==

== ENCOUNTER → 2021-06-13 13:49 | Outpatient (BNVA) | payer OTHER, SELFPAY | PROVIDERS: PCP Internal Medicine; Visit Provider Nurse Practitioner | CPT/HCPCS: Q3014 ==

== ENCOUNTER → 2021-07-01 12:50 | Outpatient (BNVA) | payer OTHER, SELFPAY | PROVIDERS: PCP Internal Medicine; Visit Provider Internal Medicine Pulmonary Disease | DX: J45.40 Moderate persistent asthma, uncomplicated (principal) | CPT/HCPCS: 99212 ==

== ENCOUNTER → 2021-07-11 14:18 | Outpatient (BNVA) | payer OTHER, SELFPAY | PROVIDERS: PCP Internal Medicine; Visit Provider Internal Medicine | DX: G89.29 Other chronic pain (principal); G58.8 Other specified mononeuropathies; J18.9 Pneumonia, unspecified organism; U09.9 Post COVID-19 condition, unspecified; I26.99 Other pulmonary embolism without acute cor pulmonale; I10 Essential (primary) hypertension; K58.2 Mixed irritable bowel syndrome; Z88.8 Allergy status to other drugs, medicaments and biological substances; Z88.6 Allergy status to analgesic agent; Z91.012 Allergy to eggs; Z91.010 Allergy to peanuts; Z91.013 Allergy to seafood | CPT/HCPCS: 99202 ==

== ENCOUNTER 2021-07-18 08:39 | Outpatient (REF) | payer OTHER, SELFPAY ==
[2021-07-18 14:47] LABS: CT PCR NOT DETECTED (Not Detect.); NG PCR NOT DETECTED (Not Detect.)
[2021-07-19 11:12] LABS: BV Int Neg Control Negative (Negative); BV Int Pos Control Positive (Positive)
[2021-07-21 10:56] LABS: HPV 16 RNA NOT DETECTED (NOT DETECTED); HPV mRNA E6/E7 rflx Detected (Not Detected)
== END 2021-07-18 08:40 | disposition home or self-care (01) ==
LOC: HO.LAB 08:39
PROVIDERS: PCP Internal Medicine; Visit Provider Advanced Practice Midwife
DX: Z12.4 Encounter for screening for malignant neoplasm of cervix (principal); Z11.51 Encounter for screening for human papillomavirus (HPV); Z11.3 Encounter for screening for infections with a predominantly sexual mode of transmission; R10.9 Unspecified abdominal pain; N95.0 Postmenopausal bleeding; N90.89 Other specified noninflammatory disorders of vulva and perineum
CPT/HCPCS: 87480; 87491; 87510; 87591; 87624; 87625; 87660; 88142; 99212

== ENCOUNTER 2021-07-22 14:55 | Outpatient (REF) | payer OTHER, SELFPAY ==
--- NOTE | ~2021-07-22 | US_ITS ---
EXAMINATION: US PELVIS CLINICAL INFORMATION: Pelvic peritoneal pain COMPARISON: Previous pelvic ultrasound most recent December [address] of the abdomen and pelvis most recent December 2020 TECHNIQUE: Ultrasound of the pelvis is performed using both transabdominal and transvaginal transducers along with Doppler. Transvaginal imaging is performed due to inadequate visualization transabdominally. FINDINGS: The uterus is anteverted and measures 5.5 x 2.4 x 3.2 cm in dimension. There is no focal uterine lesion. There is fluid seen in the endometrium. The endometrium does not appear thickened. Anterior single thickness endometrium measures 0.2 cm and posterior single thickness endometrium measures 0.3 cm. There is a hypoechoic area seen in the cervix near the endocervical canal. This measures 1.1 x 0.6 x 0.5 cm in sagittal AP and transverse dimension. This is similar to previous exams. The right ovary is not seen. The left ovary is normal-appearing and measures 1.3 x 0.6 x 0.8 cm. There is no fluid in the pelvis. US/US pelvic and transvaginal IMPRESSION: Small amount of fluid in the endometrium. The endometrium does not appear thickened. Stable appearance to the hypoechoic soft tissue in the cervix near the endocervical canal. Normal-appearing left ovary. Right ovary not seen.
== END 2021-07-22 14:56 | disposition home or self-care (01) ==
LOC: HO.US 14:55
PROVIDERS: Visit Provider Advanced Practice Midwife
DX: R10.2 Pelvic and perineal pain (principal)
CPT/HCPCS: 76830; 76856

== ENCOUNTER → 2021-08-05 11:51 | Outpatient (BNVA) | payer OTHER, SELFPAY | PROVIDERS: PCP Internal Medicine; Visit Provider Advanced Practice Midwife | CPT/HCPCS: Q3014 ==

== ENCOUNTER → 2021-08-08 15:19 | Outpatient (BNVA) | payer OTHER, SELFPAY | PROVIDERS: Visit Provider Nurse Practitioner | DX: K58.2 Mixed irritable bowel syndrome (principal); K90.89 Other intestinal malabsorption; K21.9 Gastro-esophageal reflux disease without esophagitis; R10.9 Unspecified abdominal pain; R14.0 Abdominal distension (gaseous) | CPT/HCPCS: Q3014 ==

== ENCOUNTER → 2021-08-22 13:27 | Outpatient (BNVA) | payer OTHER, SELFPAY | PROVIDERS: Visit Provider Internal Medicine | DX: G58.8 Other specified mononeuropathies (principal); R42 Dizziness and giddiness | CPT/HCPCS: Q3014 ==

== ENCOUNTER 2021-09-08 15:43 | Emergency (ER) | payer OTHER, SELFPAY ==
--- NOTE | ~2021-09-08 | XR_ITS ---
EXAMINATION: XR CHEST CLINICAL INFORMATION: Chest pain COMPARISON: 11/12/2020 TECHNIQUE: Frontal view of the chest was obtained. FINDINGS: Cardiac leads overlie the chest. The lungs are well expanded. There is no focal consolidation, edema, or effusion. No pneumothorax. The cardiomediastinal silhouette is within normal limits. No acute osseous abnormality. XR/XR chest 1V IMPRESSION: Clear lungs.
--- NOTE | 2021-09-08 17:15 | ECG_ITS ---
Test Reason : CHEST TIGHTESS Blood Pressure : / mmHG Vent. Rate : 060 BPM Atrial Rate : 060 BPM P-R Int : 156 ms QRS Dur : 076 ms QT Int : 434 ms P-R-T Axes : 026 011 029 degrees QTc Int : 434 ms Normal sinus rhythm Normal ECG When compared with ECG of 30-JUN-2020 11:03, No significant change was found Referred By: Generic ED Physician Electronically Signed By:BRITTON MARTINEZ
[2021-09-08 17:23] VITALS: BP 154/95; PULSE 70; RESP 16; TEMP 37.1; O2SAT 100; BMI 32.1
[2021-09-08 18:00] VITALS: BP 161/92; PULSE 65; RESP 20; O2SAT 100
[2021-09-08 18:02] LABS: MANUAL DIFF FLAG NO
--- NOTE | 2021-09-08 18:04 | ED_ITS ---
HPI - Chest Pain General Chief Complaint: Chest Pain Stated Complaint: CHEST PAIN Time Seen by Provider: 09/08/21 18:04 Source: patient Mode of arrival: ambulatory Limitations: no limitations History of Present Illness HPI narrative: Patient 60 years old female with history of asthma hypertension and COVID in the past comes here for elevated blood pressure for last few weeks usually systolic in 190 range and diastolic in high 90s spoke to her PCP will increase the dose of lisinopril from 10 mg to 20 mg 9 days ago also complaining of headache and chest tightness and shortness of breath since then, on arrival patient blood pressure was 154/95 pulse rate 70 saturating 100% room air seems to be little anxious, was seen at urgent care center was given sublingual nitro by EMS. Patient denies any history of coronary artery disease patient does have history of PE but last CT scan done on 01/05 was negative patient also complaining of headache neck pain multiple complaints Related Data Home Medications Medication Instructions Recorded Confirmed albuterol sulfate 2.5 mg INHALATION TID PRN 06/23/20 08/29/21 ipratropium 0.5 mg-albuterol 3 mg 0.5 ml INHALATION Q6H PRN 06/23/20 08/29/21 (2.5 mg base)/3 mL nebulization soln lisinopril 10 mg tablet 10 mg PO DAILY 06/23/20 08/29/21 albuterol sulfate 90 mcg/actuation 90 mcg INHALATION DAILY 11/11/20 08/29/21 aerosol inhaler budesonide-formoterol HFA 160 2 puff PO BID 11/11/20 08/29/21 mcg-4.5 mcg/actuation aerosol inhaler trazodone 50 mg tablet 50 mg PO BEDTIME 04/08/21 08/29/21 fluoxetine 10 mg capsule 10 mg PO DAILY 06/03/21 08/29/21 calcium carbonate 500 mg-vitamin 1 tab PO BID 08/08/21 08/29/21 D3 10 mcg (400 unit) tablet (Oyster Shell Calcium-Vitamin D3) Previous Rx's Medication Instructions Recorded acetaminophen 500 mg tablet 500 mg PO Q6H PRN #20 tab 06/30/20 (Tylenol Extra Strength) ondansetron 4 mg disintegrating 4 mg PO Q6H PRN #10 tab 10/25/20 tablet dicyclomine 20 mg tablet 20 mg PO QID 30 Days #120 tab 04/08/21 omeprazole 40 mg capsule,delayed 40 mg PO BID 30 Days #60 cap 08/08/21 release sucralfate 1 gram tablet 3 g PO DAILY #60 tab 08/08/21 pregabalin 75 mg capsule 75 mg PO BID #60 cap 08/22/21 hydrochlorothiazide 25 mg tablet 25 mg PO QAM #30 tab 09/08/21 Allergies Allergy/AdvReac Type Severity Reaction Status Date / Time seafood Allergy Severe Anaphylaxis Verified 08/29/21 13:18 vancomycin [VANCOMYCIN] Allergy Severe ANAPHYLAXIS, Verified 08/29/21 13:18 hives aspirin [ASPIRIN] Allergy Intermediate rash, Verified 08/29/21 13:18 asthma codeine [CODEINE] Allergy Mild rash Verified 08/29/21 13:18 egg [EGGS] Allergy Mild VOMITING Verified 08/29/21 13:18 peanut [PEANUTS] Allergy Mild HIVES,DIARR Verified 08/29/21 13:18 HEA Review of Systems Review of Systems: Yes all other systems are reviewed and are negative PMFSH Past Medical History Medical History COVID-19 Hypertension IBS (irritable bowel syndrome) Irritable bowel syndrome with both constipation and diarrhea Pneumonia Pre-eclampsia Surgical History H/O colonoscopy History of section History of cholecystectomy History of surgical removal of pilonidal cyst Hx of esophagogastroduodenoscopy S/P tonsillectomy Family History Family History Father Heart attack GERD (gastroesophageal reflux disease) Peptic ulcer disease Mother CHF (congestive heart failure) Afib Diverticulitis History of bowel resection Hypothyroid COVID-19 Maternal Aunt Diabetes Maternal Uncle Cancer Social History Social History Household Members: None Housing: Apartment Alcohol intake: former Patient Tobacco Use Status: Never used Tobacco Advance Directives: No Advance Directives Information Provided: No Patient : No Physical Exam Vital Signs: Vital Signs: Last Vital Signs Temp 98.7 F 09/08/21 17:23 Pulse 65 09/08/21 18:00 Resp 20 09/08/21 18:00 BP 161/92 H 09/08/21 18:00 Pulse Ox 100 09/08/21 18:00 BMI result Body Mass Index 32.1 Appearance: Alert. Oriented X3. No acute distress. Anxious Eyes: No pallor or icterus ENT: Pharynx normal. Oral Mucosa moist Neck: Normal inspection. Neck supple. CVS: Normal heart rate and rhythm. Pulses normal. Respiratory: No respiratory distress. Equal air entry bilateral, no wheezin g/rales/rhonchi Abdomen: Soft and nontender. Bowel sounds are present, no mass palpable, no CVA tenderness Skin: Skin warm and dry. Normal skin color. Normal skin turgor. Extremities: No lower extremity edema. No calf tenderness Neuro: Oriented X 3. No motor deficit. No sensory deficit. MDM - Chest Pain MDM Narrative Medical decision making narrative: Patient with hypertension mostly systolic advised to increase the dose of lisinopril and add hydrochlorothiazide cardiac workup is negative will discharge patient home for follow-up as outpatient Lab Data Attestation: I reviewed the patient's lab results. Result diagrams: 09/08/21 17:57 09/08/21 17:57 Labs: Lab Results 09/08/21 09/08/21 09/08/21 Range/Units 17:56 17:57 17:57 WBC 5.2 (4.8-10.8) X10*3/uL RBC 4.71 (4.20-5.50) X10*6/uL Hgb 13.3 (12.0-16.0) g/dl Hct 39.1 (37.0-47.0) % MCV 83.0 (80.0-98.0) fL MCH 28.2 (27.0-33.0) pg MCHC 34.0 (31.0-35.0) g/dl RDW 11.9 (11.0-16.0) % Plt Count 202 (160-400) X10*3/uL MPV 11.0 (9.4-12.3) fL Immature Gran % (Auto) 0.8 H (0.0-0.4) % Neut % (Auto) 64.5 (45-73) % Lymph % (Auto) 28.1 (20-40) % Cascade % (Auto) 5.2 (2-11) % Eos % (Auto) 0.8 (0-4) % Baso % (Auto) 0.6 (0-2) % Lymph # (Auto) 1.5 (1.2-4.9) X10*3/uL Cascade # (Auto) 0.3 (0.1-1.2) X10*3/uL Eos # (Auto) 0.0 (0.0-0.4) X10*3/uL Baso # (Auto) 0.0 (0.0-0.2) X10*3/uL Abs Immat Gran (auto) 0.04 H (0.00-0.03) X10*3/uL Absolute Neuts (auto) 3.4 (2.0-8.3) x10*3/uL Absolute Nucleated RBC 0.000 (0.0-0.012) X10*3/uL Nucleated RBC % (auto) 0.0 (0.0-0.2) /100WBC Sodium 140 (135-145) mmol/L Potassium 3.9 (3.3-5.1) mmol/L Chloride 106 (96-108) mmol/L Carbon Dioxide 25 (22-29) mmol/L Anion Gap 13 (12-20) BUN 11 (9-16) mg/dL Creatinine 0.72 (0.5-1.4) mg/dL Estim Creat Clear Calc 71.8 Estimated GFR > 60 Random Glucose 89 (60-115) mg/dL Calcium 9.6 (8.4-10.2) mg/dL Troponin I High Sens (<3.5-17.0) ng/L COVID-19 ([facility]) Negative (Negative) COVID-19 Clin Com See Note 09/08/21 Range/Units 17:57 WBC (4.8-10.8) X10*3/uL RBC (4.20-5.50) X10*6/uL Hgb (12.0-16.0) g/dl Hct (37.0-47.0) % MCV (80.0-98.0) fL MCH (27.0-33.0) pg MCHC (31.0-35.0) g/dl RDW (11.0-16.0) % Plt Count (160-400) X10*3/uL MPV (9.4-12.3) fL Immature Gran % (Auto) (0.0-0.4) % Neut % (Auto) (45-73) % Lymph % (Auto) (20-40) % Cascade % (Auto) (2-11) % Eos % (Auto) (0-4) % Baso % (Auto) (0-2) % Lymph # (Auto) (1.2-4.9) X10*3/uL Cascade # (Auto) (0.1-1.2) X10*3/uL Eos # (Auto) (0.0-0.4) X10*3/uL Baso # (Auto) (0.0-0.2) X10*3/uL Abs Immat Gran (auto) (0.00-0.03) X10*3/uL Absolute Neuts (auto) (2.0-8.3) x10*3/uL Absolute Nucleated RBC (0.0-0.012) X10*3/uL Nucleated RBC % (auto) (0.0-0.2) /100WBC Sodium (135-145) mmol/L Potassium (3.3-5.1) mmol/L Chloride (96-108) mmol/L Carbon Dioxide (22-29) mmol/L Anion Gap (12-20) BUN (9-16) mg/dL Creatinine (0.5-1.4) mg/dL Estim Creat Clear Calc Estimated GFR Random Glucose (60-115) mg/dL Calcium (8.4-10.2) mg/dL Troponin I High Sens < 3.5 (<3.5-17.0) ng/L COVID-19 ([facility]) (Negative) COVID-19 Clin Com ECG Data ECG #1: Attestation: I personally reviewed and interpreted this ECG as follows: Interpretation: Normal sinus rhythm heart rate 60 beats per minute normal intervals normal axis no acute STT wave changes impression normal EKG Discharge Plan Discharge Clinical Impression: HTN (hypertension), benign Patient Disposition: Home, Self-Care Instructions: Chronic Hypertension (ED) Additional Instructions: Continue take 20 mg only lisinopril daily Add hydrochlorothiazide 25 mg daily in the morning Check blood pressure before you take th medicine and after 12 hours If blood pressure consistently higher than 160/90 you may take another 10 mg of lisinopril in the evening time Follow-up with PCP Prescriptions: New hydrochlorothiazide 25 mg tablet 25 mg PO QAM Qty: 30 RF: 1 No Action fluoxetine 10 mg capsule 10 mg PO DAILY RF: 0 acetaminophen [Tylenol Extra Strength] 500 mg tablet 500 mg PO Q6H PRN (Reason: pain or fever) Qty: 20 RF: 0 ondansetron 4 mg tablet,disintegrating 4 mg PO Q6H PRN (Reason: nausea and vomiting) Qty: 10 RF: 0 trazodone 50 mg tablet 50 mg PO BEDTIME RF: 0 dicyclomine 20 mg tablet 20 mg PO QID 30 Days Qty: 120 RF: 6 Hold Instructions: Doctor's Order ipratropium-albuterol 0.5 mg-3 mg(2.5 mg base)/3 mL solution for nebulization 0.5 ml inhalation Q6H PRN (Reason: Wheezing) RF: 0 lisinopril 10 mg tablet 10 mg PO DAILY RF: 0 albuterol sulfate 2.5 mg /3 mL (0.083 %) solution for nebulization 2.5 mg inhalation TID PRN (Reason: asthma) RF: 0 budesonide-formoterol 160-4.5 mcg/actuation HFA aerosol inhaler 2 puff PO BID RF: 0 albuterol sulfate 90 mcg/actuation HFA aerosol inhaler 90 mcg inhalation DAILY RF: 0 calcium carbonate-vitamin D3 [Oyster Shell Calcium-Vit D3] 500 mg(1,250mg) - 400 unit tablet 1 tab PO BID RF: 0 omeprazole 40 mg capsule,delayed release(DR/EC) 40 mg PO BID 30 Days Qty: 60 RF: 6 sucralfate 1 gram tablet 3 g PO DAILY Qty: 60 RF: 6 pregabalin 75 mg capsule 75 mg PO BID Qty: 60 RF: 0 Interventions: ED Discharge Assessment Last Done: 09/08/21 21:39 Discharge Date/Time: 09/08/21 21:40
[2021-09-08 18:20] LABS: Anion Gap 13 (12-20); Basophils Percent Auto 0.6 % (0-2); Blood Urea Nitrogen 11 mg/dL (9-16); Calcium 9.6 mg/dL (8.4-10.2); Carbon Dioxide 25 mmol/L (22-29); Chloride 106 mmol/L (96-108); Creatinine Clr Calc Pharmacy 71.8; Eosinophils Percent Auto 0.8 % (0-4); Estimated Glomerular Filt Rate > 60; Glucose Random 89 mg/dL (60-115); Hematocrit 39.1 % (37.0-47.0); Hemoglobin 13.3 g/dl (12.0-16.0); Imm Gran Abs Auto 0.04 X10*3/uL (0.00-0.03); Imm Gran Pct Auto 0.8 % (0.0-0.4); Lymphocytes Absolute Auto 1.5 X10*3/uL (1.2-4.9); Lymphocytes Percent Auto 28.1 % (20-40); Mean Corpuscular Hemoglobin 28.2 pg (27.0-33.0); Monocytes Absolute Auto 0.3 X10*3/uL (0.1-1.2); Monocytes Percent Auto 5.2 % (2-11); Neutrophils Absolute Auto 3.4 x10*3/uL (2.0-8.3); Neutrophils Percent Auto 64.5 % (45-73); Platelet Count 202 X10*3/uL (160-400); Potassium 3.9 mmol/L (3.3-5.1); Red Blood Count 4.71 X10*6/uL (4.20-5.50); Red Cell Distribution Width 11.9 % (11.0-16.0); Sodium 140 mmol/L (135-145); White Blood Count 5.2 X10*3/uL (4.8-10.8)
[2021-09-08 18:21] LABS: COVID-19 Test Negative (Negative); IDNOW Serial# 9DD0AD1C
[2021-09-08 18:25] LABS: Troponin-I High Sensitivity < 3.5 ng/L (<3.5-17.0)
[2021-09-08] MEDS: Morphine Sulfate 2 MG/ML CARTRIDGE IVPUSH (19:30)
[2021-09-08] MEDS: Acetaminophen 325 MG TABLET 650 MG PO (20:26)
[2021-09-08] MEDS: LORazepam 0.5 MG TABLET PO (20:27)
== END 2021-09-08 21:40 | disposition home or self-care (01) ==
PROVIDERS: Emergency Provider Internal Medicine; PCP Internal Medicine
DX: I10 Essential (primary) hypertension (principal); J45.909 Unspecified asthma, uncomplicated; Z86.711 Personal history of pulmonary embolism; Z79.899 Other long term (current) drug therapy; Z20.822 Contact with and (suspected) exposure to COVID-19
CPT/HCPCS: 36415; 71045; 80048; 84484; 85025; 87635; 93005; 96374; 99284; 99285; J2270

== ENCOUNTER → 2021-10-07 09:18 | Outpatient (BNVA) | payer OTHER, SELFPAY | PROVIDERS: PCP Internal Medicine; Referring Provider Internal Medicine; Visit Provider Nurse Practitioner | DX: K21.9 Gastro-esophageal reflux disease without esophagitis (principal); K90.89 Other intestinal malabsorption; K58.2 Mixed irritable bowel syndrome; R10.9 Unspecified abdominal pain | CPT/HCPCS: 99212 ==

== ENCOUNTER → 2021-11-29 12:04 | Outpatient (BNVA) | payer OTHER, SELFPAY | PROVIDERS: PCP Internal Medicine; Visit Provider Internal Medicine Pulmonary Disease | DX: J45.40 Moderate persistent asthma, uncomplicated (principal); L30.9 Dermatitis, unspecified; Z91.09 Other allergy status, other than to drugs and biological substances | CPT/HCPCS: 99212 ==

== ENCOUNTER 2022-01-11 11:02 | Emergency (ER) | payer OTHER, SELFPAY ==
[2022-01-11 11:44] VITALS: BP 163/87; PULSE 64; RESP 18; TEMP 36.8; O2SAT 100; BMI 31.2
[2022-01-11 12:20] LABS: MANUAL DIFF FLAG NO
[2022-01-11 12:23] LABS: Basophils Absolute Auto 0.1 X10*3/uL (0.0-0.2); Basophils Percent Auto 0.7 % (0-2); Eosinophils Absolute Auto 0.1 X10*3/uL (0.0-0.4); Eosinophils Percent Auto 1.4 % (0-4); Hematocrit 38.6 % (37.0-47.0); Hemoglobin 12.9 g/dl (12.0-16.0); Imm Gran Abs Auto 0.02 X10*3/uL (0.00-0.03); Imm Gran Pct Auto 0.3 % (0.0-0.4); Lymphocytes Absolute Auto 1.6 X10*3/uL (1.2-4.9); Lymphocytes Percent Auto 21.9 % (20-40); Mean Corpuscular HGB Conc 33.4 g/dl (31.0-35.0); Mean Corpuscular Hemoglobin 27.9 pg (27.0-33.0); Mean Corpuscular Volume 83.5 fL (80.0-98.0); Mean Platelet Volume 10.6 fL (9.4-12.3); Monocytes Absolute Auto 0.4 X10*3/uL (0.1-1.2); Neutrophils Absolute Auto 5.2 x10*3/uL (2.0-8.3); Neutrophils Percent Auto 70.7 % (45-73); Platelet Count 221 X10*3/uL (160-400); Red Blood Count 4.62 X10*6/uL (4.20-5.50); Red Cell Distribution Width 12.3 % (11.0-16.0); White Blood Count 7.3 X10*3/uL (4.8-10.8)
[2022-01-11 12:24] LABS: Appearance Urine CLEAR; Color Urine YELLOW; Glucose Urine UA NEG (NEG); Leukocyte Esterase Urine TRACE (NEG); Nitrite Urine NEG (NEG); Specific Gravity - Urine 1.025 (1.005-1.025); Urine Blood NEG (NEG); Urine Ketones NEG (NEG); Urine Protein NEG (NEG-TRACE)
[2022-01-11 12:34] LABS: Calcium Oxalate Crystals Urine TRACE /LPF; RBC Urine 0-2 /HPF (0); Renal Epithelial Cells Urine TRACE /LPF; Squamous Epithelial Cell Urine 1+ /LPF; WBC Urine 0-2 /HPF (0-4)
[2022-01-11 12:48] LABS: Anion Gap 13 (12-20); Blood Urea Nitrogen 19 mg/dL (9-16); Calcium 9.5 mg/dL (8.4-10.2); Carbon Dioxide 27 mmol/L (22-29); Chloride 105 mmol/L (96-108); Estimated Glomerular Filt Rate > 60; Glucose Random 109 mg/dL (60-115); Potassium 4.6 mmol/L (3.3-5.1); Sodium 140 mmol/L (135-145)
== END 2022-01-11 16:16 | disposition left against medical advice (07) ==
PROVIDERS: Emergency Provider Emergency Medicine; PCP Internal Medicine
DX: R31.9 Hematuria, unspecified (principal); Z98.890 Other specified postprocedural states
CPT/HCPCS: 36415; 80048; 81001; 85025; 99283

== ENCOUNTER → 2022-01-13 13:01 | Outpatient (BNVA) | payer OTHER, SELFPAY | PROVIDERS: PCP Internal Medicine; Visit Provider Internal Medicine Pulmonary Disease | DX: J45.40 Moderate persistent asthma, uncomplicated (principal) | CPT/HCPCS: 99211 ==

== ENCOUNTER 2022-02-16 11:38 | Outpatient (REF) | payer OTHER, SELFPAY ==
[2022-02-16 12:06] LABS: MANUAL DIFF FLAG NO
[2022-02-16 12:58] LABS: Basophils Absolute Auto 0.1 X10*3/uL (0.0-0.2); Basophils Percent Auto 0.9 % (0-2); Eosinophils Absolute Auto 0.1 X10*3/uL (0.0-0.4); Eosinophils Percent Auto 1.4 % (0-4); Hematocrit 38.5 % (37.0-47.0); Hemoglobin 12.7 g/dl (12.0-16.0); Imm Gran Abs Auto 0.01 X10*3/uL (0.00-0.03); Imm Gran Pct Auto 0.2 % (0.0-0.4); Lymphocytes Absolute Auto 1.5 X10*3/uL (1.2-4.9); Lymphocytes Percent Auto 26.9 % (20-40); Mean Corpuscular Hemoglobin 28.2 pg (27.0-33.0); Mean Corpuscular Volume 85.6 fL (80.0-98.0); Mean Platelet Volume 11.5 fL (9.4-12.3); Monocytes Absolute Auto 0.3 X10*3/uL (0.1-1.2); Monocytes Percent Auto 5.8 % (2-11); Neutrophils Absolute Auto 3.7 x10*3/uL (2.0-8.3); Neutrophils Percent Auto 64.8 % (45-73); Platelet Count 219 X10*3/uL (160-400); White Blood Count 5.7 X10*3/uL (4.8-10.8)
[2022-02-16 13:00] LABS: D Dimer High Sensitivity 194 NG/ML
[2022-02-16 13:16] LABS: Alanine Aminotransferase 38 U/L (0-31); Alkaline Phosphatase 169 U/L (39-117); Anion Gap 12 (12-20); Aspartate Amino Transferase 31 U/L (5-31); Bilirubin Total 0.4 mg/dL (0.0-1.0); Blood Urea Nitrogen 13 mg/dL (9-16); Calcium 9.3 mg/dL (8.4-10.2); Carbon Dioxide 26 mmol/L (22-29); Chloride 104 mmol/L (96-108); Estimated Glomerular Filt Rate > 60; Glucose Random 95 mg/dL (60-115); Potassium 4.1 mmol/L (3.3-5.1); Sodium 138 mmol/L (135-145); Total Protein 6.9 g/dL (6.5-8.0)
== END 2022-02-16 11:39 | disposition home or self-care (01) ==
LOC: HO.LAB 11:38
PROVIDERS: PCP Internal Medicine; Referring Provider Internal Medicine Pulmonary Disease; Visit Provider Internal Medicine Medical Oncology
DX: I26.99 Other pulmonary embolism without acute cor pulmonale (principal); Z91.09 Other allergy status, other than to drugs and biological substances
CPT/HCPCS: 36415; 80053; 82785; 85025; 85379; 86003

== ENCOUNTER → 2022-03-14 13:02 | Outpatient (BNVA) | payer OTHER, SELFPAY | PROVIDERS: PCP Internal Medicine; Visit Provider Internal Medicine Pulmonary Disease | DX: J45.40 Moderate persistent asthma, uncomplicated (principal); U09.9 Post COVID-19 condition, unspecified; Z91.09 Other allergy status, other than to drugs and biological substances | CPT/HCPCS: 99212 ==

== ENCOUNTER → 2022-04-07 11:23 | Outpatient (BNVA) | payer OTHER, SELFPAY | PROVIDERS: PCP Internal Medicine; Referring Provider Internal Medicine; Visit Provider Nurse Practitioner | DX: K21.9 Gastro-esophageal reflux disease without esophagitis (principal); K58.2 Mixed irritable bowel syndrome; B37.81 Candidal esophagitis; B37.0 Candidal stomatitis | CPT/HCPCS: 99212 ==

== ENCOUNTER 2022-10-25 12:50 | Outpatient (REF) | payer OTHER, SELFPAY ==
--- NOTE | ~2022-10-25 | MM_ITS ---
EXAMINATION: BONE DENSITOMETRY CLINICAL INDICATION: Osteoporosis. COMPARISON: Baseline BD dated 07/09/2018. TECHNIQUE: Using a [employer] DXA System (software version: 13.1) manufactured by [employer], dual-energy x-ray absorptiometry was performed of the lumbar spine and left hip. The images are of good technical quality. Summary results are attached. FINDINGS: AP SPINE L1-L4: Current: BMD 0.787 g/cm2, Z-score -2.2, T-score -3.3, osteoporosis, 1.4% decrease from baseline (<5% change is not significant). Baseline: BMD 0.798 g/cm2. LEFT FEMUR, NECK: Current: BMD 0.719 g/cm2, Z-score -1.1, T-score -2.3, osteopenia. Baseline: BMD 0.690 g/cm2. LEFT FEMUR, TOTAL: Current: BMD 0.677 g/cm2, Z-score -1.8, T-score -2.6, osteoporosis, 1.7% decrease from baseline (<5% change is not significant). Baseline: BMD 0.689 g/cm2. IDENTIFIED RISK FACTORS: Height loss. Low calcium intake. Chronic glucocorticoids. Menopause. Osteoporosis. HISTORY OF FRACTURE: None listed. MEDICATIONS: Calcium supplement and/or multivitamin. Vitamin D. MM/XR DEXA axial skeleton IMPRESSION: 1. DIAGNOSIS: Osteoporosis based on the lowest T-score value of -3.3 in the lumbar spine applying World Health Organization criteria. 2. 10-YEAR FRACTURE RISK PREDICTION, FRAX: According to the guidelines, FRAX calculation should only be performed on patients in the osteopenia bone density category.?Therefore, FRAX was not performed on this patient.? 3. Treatment Recommendations: NOF guidelines recommend consideration for treatment in postmenopausal women and men age 50 and older presenting with the following: -A hip or vertebral (clinical or morphometric) fracture. -T-score less than or equal to -2.5 at the femoral neck or spine after appropriate evaluation to exclude secondary causes. -Low bone mass at the hip or spine and a 10-year fracture probability by FRAX of greater than or equal to 3% for hip fracture or greater than or equal to 20% for major osteoporotic fracture based on the [place] adapted WHO algorithm. 4. Other Recommendations: All treatment decisions require clinical judgment and consideration of individual patient factors, including patient preferences, comorbidities, previous drug use, risk factors not captured in the FRAX model (e.g. frailty, falls, vitamin D deficiency, increased bone turnover, interval significant decline in bone density) and possible under or overestimation of fracture risk by FRAX. Additional medical evaluation for secondary cause of low bone mineral density may be appropriate. FUTURE SCAN RECOMMENDATION: People with diagnosed cases of osteoporosis or at high risk for fracture should have regular bone mineral density tests. For patients eligible for Medicare, routine testing is allowed once every 2 years. The testing frequency can be increased to one year for patients who have rapidly progressing disease, those who are receiving or discontinuing medical therapy to restore bone mass, or have additional risk factors.
== END 2022-10-25 12:51 | disposition home or self-care (01) ==
LOC: HO.MAMMO 12:50
PROVIDERS: PCP Internal Medicine; Visit Provider Internal Medicine
DX: M81.0 Age-related osteoporosis without current pathological fracture (principal)
CPT/HCPCS: 77080

== ENCOUNTER → 2022-11-02 11:07 | Outpatient (BNVA) | payer OTHER, SELFPAY | PROVIDERS: PCP Internal Medicine; Visit Provider Internal Medicine Pulmonary Disease | DX: J45.40 Moderate persistent asthma, uncomplicated (principal); Z91.09 Other allergy status, other than to drugs and biological substances; Z79.899 Other long term (current) drug therapy | CPT/HCPCS: 99212 ==

== ENCOUNTER → 2022-12-15 13:16 | Outpatient (BNVA) | payer OTHER, SELFPAY | PROVIDERS: PCP Internal Medicine; Visit Provider Nurse Practitioner | DX: K21.9 Gastro-esophageal reflux disease without esophagitis (principal); K58.2 Mixed irritable bowel syndrome; B37.81 Candidal esophagitis; B37.0 Candidal stomatitis | CPT/HCPCS: 99212 ==

== ENCOUNTER 2023-01-03 13:05 | Outpatient (REF) | payer OTHER, SELFPAY ==
[2023-01-03 15:39] LABS: Appearance Urine Clear; Color Urine Yellow; Glucose Urine UA Negative (Negative); Leukocyte Esterase Urine Negative (Negative); Nitrite Urine Negative (Negative); Urine Blood Negative (Negative); Urine Ketones Negative (Negative); Urine Protein Negative (Neg-Trace)
== END 2023-01-03 13:06 | disposition home or self-care (01) ==
LOC: HO.LAB 13:05
PROVIDERS: PCP Internal Medicine; Visit Provider Nurse Practitioner
DX: R14.0 Abdominal distension (gaseous) (principal); K21.9 Gastro-esophageal reflux disease without esophagitis; K58.2 Mixed irritable bowel syndrome; R30.9 Painful micturition, unspecified
CPT/HCPCS: 81003; 99212

== ENCOUNTER → 2023-02-01 12:45 | Outpatient (BNVA) | payer OTHER, SELFPAY | PROVIDERS: PCP Internal Medicine; Visit Provider Nurse Practitioner | DX: K58.2 Mixed irritable bowel syndrome (principal); K21.9 Gastro-esophageal reflux disease without esophagitis; R14.0 Abdominal distension (gaseous) | CPT/HCPCS: 99212 ==

== ENCOUNTER 2023-03-26 15:29 | Outpatient (REF) | payer OTHER, SELFPAY ==
--- NOTE | ~2023-03-26 | XR_ITS ---
Examination: XR ribs LT min 3V w CXR1V, XR thoracic spine 2V Indication: Fall. Pain Comparison: 06/30/2020 Technique: Single frontal and 2 lateral views of the thoracic spine obtained. An additional single frontal view of the chest with 4 oblique views the left ribs obtained. Findings: Thoracic spine: There is a mild convex right thoracolumbar curve noted similar to the prior study lungs are otherwise in normal anatomic alignment with no acute fracture or spondylolisthesis. Vertebral body heights and disc heights are preserved. No associated rib abnormality or airspace disease. Surgical clips in the right upper quadrant likely from prior cholecystectomy. Left RIBS: Lungs well-expanded with no superimposed focal infiltrate, effusion, edema, or pneumothorax. Cardiac and mediastinal silhouettes within normal limits for size. I do not appreciate any displaced rib fracture on these views. XR/XR thoracic spine 2V Impression: Chronic appearing changes as described above. I do not appreciate any acute fracture or spondylolisthesis.
--- NOTE | ~2023-03-26 | XR_ITS ---
Examination: XR ribs LT min 3V w CXR1V, XR thoracic spine 2V Indication: Fall. Pain Comparison: 06/30/2020 Technique: Single frontal and 2 lateral views of the thoracic spine obtained. An additional single frontal view of the chest with 4 oblique views the left ribs obtained. Findings: Thoracic spine: There is a mild convex right thoracolumbar curve noted similar to the prior study lungs are otherwise in normal anatomic alignment with no acute fracture or spondylolisthesis. Vertebral body heights and disc heights are preserved. No associated rib abnormality or airspace disease. Surgical clips in the right upper quadrant likely from prior cholecystectomy. Left RIBS: Lungs well-expanded with no superimposed focal infiltrate, effusion, edema, or pneumothorax. Cardiac and mediastinal silhouettes within normal limits for size. I do not appreciate any displaced rib fracture on these views. XR/XR ribs LT min 3V w CXR1V Impression: Chronic appearing changes as described above. I do not appreciate any acute fracture or spondylolisthesis.
== END 2023-03-26 15:30 | disposition home or self-care (01) ==
LOC: HO.HHCX 15:29
PROVIDERS: Visit Provider Internal Medicine
DX: R07.81 Pleurodynia (principal); M54.9 Dorsalgia, unspecified; W19.XXXD Unspecified fall, subsequent encounter
CPT/HCPCS: 71101; 72070

== ENCOUNTER 2023-03-28 13:49 | Outpatient (AMB) | payer OTHER, SELFPAY ==
--- NOTE | 2023-03-28 13:55 | MHC.OFFVIS ---
Intake Vital Signs 03/28/23 13:58 Height 4 ft 11 in Weight 152 lb 1.903 oz BMI 30.7 BP 126/74 Pulse 66 Pulse Oximetry (%) 96 Intake Visit Reasons: post covid Intake Note: pt is doing good on injections but she is noticing she get a rash a week before getting her next dosage Allergies seafood Allergy (Severe, Verified 03/28/23 13:56) Anaphylaxis vancomycin [VANCOMYCIN] Allergy (Severe, Verified 03/28/23 13:56) ANAPHYLAXIS, hives aspirin [ASPIRIN] Allergy (Intermediate, Verified 03/28/23 13:56) rash, asthma codeine [CODEINE] Allergy (Mild, Verified 03/28/23 13:56) rash egg [EGGS] Allergy (Mild, Verified 03/28/23 13:56) VOMITING peanut [PEANUTS] Allergy (Mild, Verified 03/28/23 13:56) HIVES,DIARRHEA mushroom Allergy (Verified 03/28/23 13:56) Rash lactose Adverse Reaction (Intermediate, Verified 03/28/23 13:56) diarrhea HPI post covid HPI Details 62-year-old lady, lifetime nonsmoker, followed for severe persistent asthma, environmental allergies, and post COVID-19 syndrome.? Patient was not able to tolerate immunologic therapy for her asthma including Fasenra and Xolair, but had good response with Dupixent. She also has had significant side effects after COVID vaccines.? She continues to use his Symbicort and albuterol MDI.? At this time his symptoms are well controlled she denies any recent exacerbations. [facility] Medical History (Updated 03/01/23 @ 13:19 by Hugo Tovar MD) COVID-19 Gallstones Hypertension IBS (irritable bowel syndrome) Irritable bowel syndrome with both constipation and diarrhea Pneumonia Pre-eclampsia Surgical History H/O cervical polypectomy H/O colonoscopy History of section History of cholecystectomy History of surgical removal of pilonidal cyst Hx of esophagogastroduodenoscopy S/P tonsillectomy Family History Father Heart attack GERD (gastroesophageal reflux disease) Peptic ulcer disease Mother CHF (congestive heart failure) Afib Diverticulitis History of bowel resection Hypothyroid COVID-19 Maternal Aunt Diabetes Maternal Uncle Cancer Social History Household Members: Spouse Housing: Apartment Are you a primary health care coordinator to a significant other at home: No Do you presently have visiting nurse or other home services: Yes (phone visits) Alcohol intake: former Patient Tobacco Use Status: Never used Tobacco service: No Current occupational status: retired Review of Systems Const Denies daytime sleepiness, Denies excessive sweating, Denies fatigue, Denies fever(s), Denies lethargy, Denies malaise, Denies night sweats, Denies snoring and Denies weight loss Eyes Denies blurry vision and Denies itchy eyes ENT Denies nasal congestion, Denies post nasal drip, Denies sinus pain, Denies sinus pressure and Denies other ( Thrush) Card Denies chest pain, Denies pedal edema, Denies dyspnea, Denies orthopnea and Denies paroxysmal nocturnal dyspnea Resp Denies cough, Denies hemoptysis, Denies excessive phlegm production, Denies dyspnea, Denies snoring and Denies wheezing GI Denies abdominal pain and Denies heartburn Musc Denies myalgias, Denies arthralgias and Denies joint swelling Skin/Breast Denies rash Neuro Denies memory loss and Denies seizure-like activity Psych Denies abnormal sleep pattern, Denies anxiety and Denies memory loss Endo Denies excessive sweating, Denies fatigue and Denies heat intolerance Migue/Lymph Denies easy bruising Aller/Immun Denies itchy eyes, Denies seasonal rhinorrhea and Denies wheezing Physical Exam Vital Signs: Last Vital Signs Pulse 66 03/28/23 13:58 BP 126/74 03/28/23 13:58 Pulse Ox 96 03/28/23 13:58 BMI result Body Mass Index 30.7 Const General: no acute distress and alert Nutritional Appearance: not obese Orientation/consciousness: Other orientation findings ( oriented) HEENT Head: Yes atraumatic Eyes General: appearance normal, both eyes and all related structures Sclerae: sclerae normal EOM: EOMs intact bilaterally Neck Neck: Yes supple Lymphatic: no lymphadenopathy noted Resp Effort & Inspection: normal respiratory effort and no use of accessory muscles Auscultation: clear to auscultation bilaterally Cardio Rate: regular rate Rhythm: regular rhythm Heart sounds: no gallops, no murmurs and no rubs Skin General skin exam: other ( warm) Extrem General: No clubbing, No cyanosis and No edema Assessment & Plan Assessment & Plan (1) Asthma: Code(s): J45.909 - Unspecified asthma, uncomplicated Qualifiers: Asthma severity: moderate Asthma persistence: persistent Asthma complication type: uncomplicated Qualified Code(s): J45.40 - Moderate persistent asthma, uncomplicated Plan: Now with good control on Dupixent, Symbicort, and albuterol MDI. Continue current regimen. (2) Environmental allergies: Code(s): Z91.09 - Other allergy status, other than to drugs and biological substances Plan: Well controlled on Dupixent. Continue current regimen. Coding Level of Care Code Est Pt Level 4 (61902) Diagnoses Asthma J45.40 Asthma severity: moderate Asthma persistence: persistent Asthma complication type: uncomplicated Environmental allergies Z91.09
[2023-03-28 13:58] VITALS: BP 126/74; PULSE 66; O2SAT 96; BMI 30.7
== END 2023-03-28 14:10 | disposition home or self-care (01) ==
PROVIDERS: PCP Internal Medicine; Visit Provider Internal Medicine Pulmonary Disease
DX: J45.40 Moderate persistent asthma, uncomplicated (principal); Z91.09 Other allergy status, other than to drugs and biological substances
CPT/HCPCS: 99214

== ENCOUNTER → 2023-03-28 13:49 | Outpatient (BNVA) | payer OTHER, SELFPAY | PROVIDERS: PCP Internal Medicine; Visit Provider Internal Medicine Pulmonary Disease | DX: J45.40 Moderate persistent asthma, uncomplicated (principal); Z91.09 Other allergy status, other than to drugs and biological substances | CPT/HCPCS: 99212 ==

== ENCOUNTER 2023-04-25 11:28 | Outpatient (REF) | payer OTHER, SELFPAY ==
[2023-04-25 14:37] LABS: Anion Gap 12 (12-20); Blood Urea Nitrogen 11 mg/dL (9-16); Calcium 9.9 mg/dL (8.4-10.2); Carbon Dioxide 26 mmol/L (22-29); Chloride 108 mmol/L (96-108); Estimated Glomerular Filt Rate > 60; Glucose Random 84 mg/dL (60-115); Potassium 4.8 mmol/L (3.3-5.1); Sodium 141 mmol/L (135-145)
== END 2023-04-25 11:29 | disposition home or self-care (01) ==
LOC: HO.HHCL 11:28
PROVIDERS: Visit Provider Internal Medicine
DX: I10 Essential (primary) hypertension (principal)
CPT/HCPCS: 36415; 80048

== ENCOUNTER 2023-05-17 09:41 | Outpatient (REF) | payer OTHER, SELFPAY ==
[2023-05-17 11:42] LABS: MANUAL DIFF FLAG NO
[2023-05-17 11:51] LABS: Basophils Percent Auto 0.7 % (0-2); Eosinophils Absolute Auto 0.1 X10*3/uL (0.0-0.4); Eosinophils Percent Auto 1.6 % (0-4); Hematocrit 38.8 % (37.0-47.0); Imm Gran Abs Auto 0.01 X10*3/uL (0.00-0.03); Imm Gran Pct Auto 0.2 % (0.0-0.4); Lymphocytes Absolute Auto 1.8 X10*3/uL (1.2-4.9); Lymphocytes Percent Auto 32.3 % (20-40); Mean Corpuscular HGB Conc 33.5 g/dl (31.0-35.0); Mean Corpuscular Hemoglobin 28.3 pg (27.0-33.0); Mean Corpuscular Volume 84.3 fL (80.0-98.0); Mean Platelet Volume 11.5 fL (9.4-12.3); Monocytes Absolute Auto 0.3 X10*3/uL (0.1-1.2); Monocytes Percent Auto 6.1 % (2-11); Neutrophils Absolute Auto 3.3 x10*3/uL (2.0-8.3); Neutrophils Percent Auto 59.1 % (45-73); Platelet Count 203 X10*3/uL (160-400); White Blood Count 5.6 X10*3/uL (4.8-10.8)
[2023-05-19 05:23] LABS: Lyme Abs Screen <0.90 index
== END 2023-05-17 09:42 | disposition home or self-care (01) ==
LOC: HO.HHCL 09:41
PROVIDERS: Visit Provider Family Medicine
DX: R50.9 Fever, unspecified (principal)
CPT/HCPCS: 36415; 85025; 86617; 86618

== ENCOUNTER 2023-05-31 11:06 | Outpatient (AMB) | payer OTHER, SELFPAY ==
[2023-05-31 11:14] VITALS: BP 120/70; BMI 31.5
--- NOTE | 2023-05-31 11:14 | A.OFFVIS_ITS ---
Intake Vital Signs 05/31/23 11:14 Height 4 ft 11 in Weight 156 lb BMI 31.5 BP 120/70 Intake Visit Reasons: New patient post coital bleeding Intake Note: Bleeding after sex and also spotting not related to sex, vaginal itch, discharge, pelvic pain, lower back pain, vaginal irritation in vaginal area. 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 Supervisor Present (Aidyn) Allergies seafood Allergy (Severe, Verified 05/31/23 11:28) Anaphylaxis vancomycin [VANCOMYCIN] Allergy (Severe, Verified 05/31/23 11:28) ANAPHYLAXIS, hives aspirin [ASPIRIN] Allergy (Intermediate, Verified 05/31/23 11:28) rash, asthma codeine [CODEINE] Allergy (Mild, Verified 05/31/23 11:28) rash egg [EGGS] Allergy (Mild, Verified 05/31/23 11:28) VOMITING peanut [PEANUTS] Allergy (Mild, Verified 05/31/23 11:28) HIVES,DIARRHEA mushroom Allergy (Verified 05/31/23 11:28) Rash lactose Adverse Reaction (Intermediate, Verified 05/31/23 11:28) diarrhea Medication List - Last Reconciled 05/31/23 by Ale Francisco CNM acetaminophen (Tylenol Extra Strength) 500 mg PO Q6H PRN albuterol sulfate 90 mcg/actuation 90 mcg inhalation DAILY albuterol sulfate 2.5 mg inhalation TID PRN calcium carbonate-vitamin D3 500 mg-10 mcg (400 unit) (Oyster Shell Calcium- Vitamin D3) 1 tab PO BID dicyclomine 20 mg PO QID 30 days diltiazem HCl (Cartia XT) 1 cap PO DAILY dupilumab (Dupixent) 200 mg (1.14 mL) subcut Q2W 28 days ergocalciferol (vitamin D2) 1,250 mcg PO QWEEK estradiol 0.01%(0.1mg/gram) 1 g vaginal DAILY fluoxetine 20 mg PO DAILY hydroxyzine HCl 10 - 20 mg PO Q6H PRN lisinopril 40 mg PO DAILY lorazepam 1 mg PO DAILY PRN methylcellulose (laxative) (Fiber Laxative (methylcellulose)) 500 mg PO BID omeprazole 40 mg PO BID 30 days sucralfate 3 grams (3 x 1 gram) PO DAILY sumatriptan succinate 50 mg PO DAILY PRN Symbicort 160-4.5 mcg/actuation (budesonide-formoterol) 2 puffs PO BID NS trazodone 100 mg PO DAILY Is last menstrual period known: No Post menopausal: Yes HPI New patient post coital bleeding HPI Details Patient is here for problems of postcoital bleeding she has a history of HPV on Pap and a mass near her cervix for which she was referred to [facility] because 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 There are no records of what happened at [facility] but the patient informs me she was seen many times there and they told her that it was a polyp and they removed it and it was benign. However she had continued bleeding from the site where they removed it and did not heal and she had a very bad infection, with a fever, after it for which they gave her an injection of antibiotics and applied a solution to try to stop the bleeding and repeated this procedure several times in attempts to stop the bleeding and I have the house site where the polyp was removed heal and it never healed very well and she still has bleeding whenever she does have sex. She has noticed that everything is much more thin and fragile since menopause. She is on multiple medications she has says any time anything is done she needs at a biotics her she ends up with an infection. She also has high blood pressure and she has tachycardia. She was given Estrace cream by her primary care provider and she says it helps a lot. She thought she had her last Pap smear with her primary care provider. She also thinks she has a yeast infection with vaginal itching and burning today she last used the Estrace cream 3 days ago. She has an appointment with Cardiology tomorrow to evaluate her tachycardia. Additionally she notices that she has gained 10 lb and she has been eating the same and if she is unable to climb stairs 1 days she walks extra to make sure she is getting the same amount of exercise so she does not think that her activity changed though she was dealing with a severe in year infection in the last month and was given Augmentin (ampicillin with clavulanic acid) but she had a severe allergic reaction complete with rash and closing of throat and difficulty breathing etc.. She also has follow-up with her primary care provider next week as well as the cardiac appointment tomorrow. She understands that she will probably always have some bleeding when she has sex but she would like something to deal with the vaginal itching and burning. She very much prefers the pills to the cream because she says the cream hanson her all the time. I did review with her that very often Benlucisrael has interactions with some of the medications that she is on and it may be flagged when I try to order it but she requested it none the less and I told her that given this I would probably only give her the 1 time prescription and no refills and for her to discuss this further with her primary care provider in the future [facility] Medical History (Updated 05/31/23 @ 12:49 by Ale Francisco CNM) COVID-19 Pneumonia IBS (irritable bowel syndrome) Hypertension Pre-eclampsia Irritable bowel syndrome with both constipation and diarrhea Gallstones Surgical History (Updated 05/31/23 @ 12:49 by Ale Francisco CNM) H/O cervical polypectomy Hx of esophagogastroduodenoscopy H/O colonoscopy History of surgical removal of pilonidal cyst S/P tonsillectomy History of section History of cholecystectomy Family History (Updated 05/31/23 @ 11:35 by FLORIDA Bush) Father Heart attack GERD (gastroesophageal reflux disease) Peptic ulcer disease Mother CHF (congestive heart failure) Afib Diverticulitis History of bowel resection Hypothyroid COVID-19 Maternal Aunt Diabetes Maternal Uncle Cancer Maternal Grandmother Cancer Social History Household Members: Spouse Housing: Apartment Are you a primary gericare aide teacher to a significant other at home: No Do you presently have visiting nurse or other home services: Yes (phone visits) Alcohol intake: former Patient Tobacco Use Status: Never used Tobacco service: No Current occupational status: retired Female Reproductive History Menstrual Age of Menarche: 10 control method: none Total pregnancies: 1 Full term: 1 Number of Living Children: 1 Date of last pap smear: 07/19/21 (+HPV) History of abnormal pap smear: Yes Date of Mammogram: 04/21/21 Date of last Bone Density Screenin10/25/22 Physical Exam Vital Signs: Last Vital Signs BP 120/70 05/31/23 11:14 BMI result Body Mass Index 31.5 Other: Moist mucosal membranes that appear to be postmenopausal consistent with postmenopausal atrophic vaginitis that is being treated with Estrace. Mild amount of whitish discharge that appears slightly consistent with vaginal yeast (status post single dose of Augmentin close parentheses cervix appears nulliparous slight bleeding noted at vaginal paige from blade of speculum touching and stretching. External Female Exam: normal external appearance and normal appearance of the urethra Speculum Exam - Vagina: normal appearance of the vagina and normal vaginal discharge Speculum Exam - Cervix: normal appearance of the cervix and Cervical os closed Results Reviewed Results Reviewed: Name: Yoselin Rodríguez Age/Sex: 60/F Attending: Lucina Daniel CNM : 1960 Submitted by: Lucina Daniel CNM Copies to: NEHA BACH MD MR #: [id number] Status: DEP REF Collected: 07/18/21 Location: .LAB Received: 07/19/21 Interpretation Satisfactory for evaluation. Negative for intraepithelial lesion or malignancy. Moderate inflammation and blood present. Atrophic. HPV mRNA E6/E7: DETECTED This assay detects E6/E7 viral messenger RNA (mRNA) from 14 high-risk HPV types (16, 18, 31, 33, 35, 39, 45, 51, 52, 56, 58, 59, 66, 68) HPV Type 16 RNA: Not Detected HPV Type 18/45 RNA: Not Detected HPV testing performed by [facility], [place], [place]. See reference laboratory portion of the EMR for entire report. Clinical Information LMP: Menopausal Previous PAP test: 2019, WNL Material Received ThinPrep-Cervical Copies To NEHA BACH MD [address], [place] [id number] Lucina Daniel CNM [address] [place] [address] Dr. Lee [address] [place] [address] [id number] Electronically Signed By: Kamaljit Andrew MD 08/01/21 5929 Patient: Yoselin Rodríguez Age/Sex: 60/F MR#: [id number] Page 1 of 2 Gynecologic Cytology [id number] The Pap Test is a screening procedure with the inherent possibility of both false negative and false positive results. Results should be interpreted in the context of historic and current clinical findings. Reliability of the Pap Test is enhanced by performing the test on a regular repetitive basis. Patient: Yoselin Rodríguez Age/Sex: 60/F MR#: [id number] Assessment & Plan Assessment & Plan (1) Hx of human papillomavirus infection: Code(s): Z86.19 - Personal history of other infectious and parasitic diseases (2) Postmenopausal atrophic vaginitis: Code(s): N95.2 - Postmenopausal atrophic vaginitis (3) Vaginal itching: Comment: Appears to be mild yeast. 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 There are no records of what happened at [facility] but the patient informs me she was seen many times there and they told her that it was a polyp and they removed it and it was benign. However she had continued bleeding from the site where they removed it and did not heal and she had a very bad infection, with a fever, after it for which they gave her an injection of antibiotics and applied a solution to try to stop the bleeding and repeated this procedure several times in attempts to stop the bleeding and I have the house site where the polyp was removed heal and it never healed very well and she still has bleeding whenever she does have sex. She has noticed that everything is much more thin and fragile since menopause. She is on multiple medications she has says any time anything is done she needs at a biotics her she ends up with an infection. She also has high blood pressure and she has tachycardia. She was given Estrace cream by her primary care provider and she says it helps a lot. She thought she had her last Pap smear with her primary care provider. She also thinks she has a yeast infection with vaginal itching and burning today she last used the Estrace cream 3 days ago. She has an appointment with Cardiology tomorrow to evaluate her tachycardia. Additionally she notices that she has gained 10 lb and she has been eating the same and if she is unable to climb stairs 1 days she walks extra to make sure she is getting the same amount of exercise so she does not think that her activity changed though she was dealing with a severe in year infection in the last month and was given Augmentin (ampicillin with clavulanic acid) but she had a severe allergic reaction complete with rash and closing of throat and difficulty breathing etc.. She also has follow-up with her primary care provider next week as well as the cardiac appointment tomorrow. She understands that she will probably always have some bleeding when she has sex but she would like something to deal with the vaginal itching and burning. She very much prefers the pills to the cream because she says the cream hanson her all the time. I did review with her that very often Diflucan has interactions with some of the medications that she is on and it may be flagged when I try to order it but she requested it none the less and I told her that given this I would probably only give her the 1 time prescription and no refills and for her to discuss this further with her primary care provider in the future Medications: New fluconazole (Diflucan) may repeat second dose 72 hrs after first dose if symptoms persist 150 mg PO Q3D 2 tabs 0RF Coding Level of Care Code Est Pt Level 3 (36600) Diagnoses Hx of human papillomavirus infection Z86.19 Postmenopausal atrophic vaginitis N95.2 Vaginal itching N89.8
== END 2023-05-31 12:21 | disposition home or self-care (01) ==
PROVIDERS: PCP Internal Medicine; Visit Provider Advanced Practice Midwife
DX: Z86.19 Personal history of other infectious and parasitic diseases (principal); N95.2 Postmenopausal atrophic vaginitis; N89.8 Other specified noninflammatory disorders of vagina
CPT/HCPCS: 99213

== ENCOUNTER 2023-05-31 11:06 | Outpatient (REF) | payer OTHER, SELFPAY ==
[2023-06-01 09:54] LABS: CT PCR NOT DETECTED (Not Detect.); NG PCR NOT DETECTED (Not Detect.)
[2023-06-01 11:38] LABS: BV Int Neg Control Negative (Negative); BV Int Pos Control Positive (Positive)
[2023-06-05 04:53] LABS: HPV mRNA E6/E7 rflx Not Detected (Not Detected)
== END 2023-05-31 11:07 | disposition home or self-care (01) ==
LOC: HO.LNP 11:06
PROVIDERS: PCP Internal Medicine; Visit Provider Advanced Practice Midwife
DX: Z12.4 Encounter for screening for malignant neoplasm of cervix (principal); Z11.51 Encounter for screening for human papillomavirus (HPV); N89.8 Other specified noninflammatory disorders of vagina; Z86.19 Personal history of other infectious and parasitic diseases
CPT/HCPCS: 0353U; 87480; 87510; 87624; 87660; 88142; 99212

== ENCOUNTER 2023-07-11 10:22 | Outpatient (AMB) | payer OTHER, SELFPAY ==
--- NOTE | 2023-07-11 10:35 | MHC.OFFVIS ---
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 Patient reports pain started after a heart catheterization in 2019 at [facility]. Currently having constant pain that radiates down her back and her arm to her wrist. Limited ROM. She will have cramps and tingling sensation in her hand. States cracking in shoulder with lifting items. Hx of osteoporosis. No other tx. Finds no relief with Tylenol, she is unable to take Motrin due to aspirin allergy. Allergies seafood Allergy (Severe, Verified 05/31/23 11:28) Anaphylaxis vancomycin [VANCOMYCIN] Allergy (Severe, Verified 05/31/23 11:28) ANAPHYLAXIS, hives aspirin [ASPIRIN] Allergy (Intermediate, Verified 05/31/23 11:28) rash, asthma codeine [CODEINE] Allergy (Mild, Verified 05/31/23 11:28) rash egg [EGGS] Allergy (Mild, Verified 05/31/23 11:28) VOMITING peanut [PEANUTS] Allergy (Mild, Verified 05/31/23 11:28) HIVES,DIARRHEA amoxicillin [From Augmentin] Allergy (Verified 07/11/23 10:40) hives, swelling, difficulty breathing clavulanic acid [From Augmentin] Allergy (Verified 07/11/23 10:40) hives, swelling mushroom Allergy (Verified 05/31/23 11:28) Rash lactose Adverse Reaction (Intermediate, Verified 05/31/23 11:28) diarrhea 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 She states she has constant pain and limited ROM in her shoulder which radiates down her back, arm and wrist. Her pain is aggravated with overhead reaching and she hears a cracking sound in her shoulder with lifting items. She also c/o numbness, tingling and cramps in her hand. She finds no relief with Tylenol. She has not had any treatment She has a history of osteoporosis. She does not have a history of diabetes. [facility] Medical History (Updated 07/11/23 @ 11:54 by Yuli Meléndez PA-C) COVID-19 Pneumonia IBS (irritable bowel syndrome) Hypertension Pre-eclampsia Irritable bowel syndrome with both constipation and diarrhea Gallstones Surgical History H/O cervical polypectomy Hx of esophagogastroduodenoscopy H/O colonoscopy History of surgical removal of pilonidal cyst S/P tonsillectomy History of section History of cholecystectomy Family History (Updated 05/31/23 @ 11:35 by FLORIDA Bush) Father Heart attack GERD (gastroesophageal reflux disease) Peptic ulcer disease Mother CHF (congestive heart failure) Afib Diverticulitis History of bowel resection Hypothyroid COVID-19 Maternal Aunt Diabetes Maternal Uncle Cancer Maternal Grandmother Cancer Social History Household Members: Spouse Housing: Apartment Are you a primary healthcare administration internship to a significant other at home: No Do you presently have visiting nurse or other home services: Yes (phone visits) Alcohol intake: former Patient Tobacco Use Status: Never used Tobacco service: No Current occupational status: retired Female Reproductive History Menstrual Age of Menarche: 10 Review of Systems Const All systems reviewed & are unremarkable except as noted in HPI and below Physical Exam Vital Signs: BMI result Body Mass Index 31.5 Const General: cooperative, healthy appearing, comfortable, no acute distress, well developed and alert Orientation/consciousness: patient oriented x3 HEENT Head: Yes normal to inspection, Yes normocephalic and Yes atraumatic Eyes General: appearance normal, both eyes and all related structures Resp Effort & Inspection: normal respiratory effort and able to speak in complete sentences Cardio Rate: regular rate Peripheral pulses: Peripheral pulses 2+ throughout GI Palpation (GI): Soft to palpation Skin Lesions: no lesions Rashes: no rashes Neuro General: patient oriented x3 Extrem Other: Right shoulder normal to inspection. Tenderness over the bicipital groove and along the deltoid region of the shoulder. Forward flexion to 175, external rotation to 90, internal rotation to S1. 5/5 RTC strength. Positive AC joint tenderness and positive cross body abduction. NVI. Office Procedures Joint Injection/Drain Joint Injection/Drain Primary Site: right shoulder Prep: site was prepped using aseptic technique, ethochloride spray was applied and injection warnings given Injected: 80 mg of, DepoMedrol, with 8 mL of, 1% plain lidocaine and in the subcromial space Approach Used: posterolateral Procedure: The patient tolerated the procedure well and there was some relief with the local anesthesia Coding - Glenohumeral/Tronchanteric Bursa/Intraarticular Procedure code (CPT) selection complete Results Reviewed Results Reviewed: 07/11/23 10:59 Lidocaine HCl 2 % MPF [Xylocaine 2 % MPF] 5 ml .ROUTE .STK-MED ONE methylPREDNISolone acetate [DEPO-MedroL] 80 mg .ROUTE .STK-MED ONE Xrays were obtained in the office today and personally reviewed by me of the right shoulder show ac joint oa Assessment & Plan Assessment & Plan (1) Osteoarthritis of acromioclavicular joint: Code(s): M19.019 - Primary osteoarthritis, unspecified shoulder (2) Rotator cuff tendonitis: Code(s): M75.80 - Other shoulder lesions, unspecified shoulder Qualifiers: Laterality: right Qualified Code(s): M75.81 - Other shoulder lesions, right shoulder Plan We discussed options today which include steroid injection. They did consent to move forward with the right shoulder injection, which was tolerated well. I recommended rest, ice and elevation and OTC anti-inflammatories PRN for discomfort. I also did recommend formal physical therapy however she is hesitant to attend because she feels it has only made her worse in the past therefore, I did give her a handout of home exercises program. If symptoms persist or worsens over the next 6-8 weeks, patient will contact the office, otherwise follow-up as needed. Orders: Orders XR shoulder RT min 2V Today M25.511 - Pain in right shoulder Patient Instructions: Scribed for Yuli Meléndez PA-C, by Harvey Chery medical microbiologist, on 07/11/2023 at 11:00 AM Yuli CHO PA-C, have personally reviewed and agree with the information entered by the scribe. Coding Level of Care Code Est Pt Level 3 (12280) Diagnoses Osteoarthritis of acromioclavicular joint M19.019 Tendinitis of right rotator cuff M75.81 Laterality: right CPT Codes Coding - Joint 7: 52724 - Glenohumeral/Tronchanteric Bursa/Intraarticular ([id number])
[2023-07-11 10:36] VITALS: BMI 31.5
== END 2023-07-11 11:16 | disposition home or self-care (01) ==
PROVIDERS: PCP Internal Medicine; Visit Provider Physician Assistant
DX: M19.011 Primary osteoarthritis, right shoulder (principal); M75.81 Other shoulder lesions, right shoulder
CPT/HCPCS: 20610; 99204

== ENCOUNTER 2023-07-11 12:54 | Outpatient (REF) | payer OTHER, SELFPAY ==
--- NOTE | ~2023-07-11 | XR_ITS ---
EXAMINATION: XR SHOULDER, RIGHT CLINICAL INFORMATION: Pain. COMPARISON: None available. TECHNIQUE: AP neutral, scapula Y, and axillary views of the right shoulder are submitted. FINDINGS: Bony alignment and mineralization are normal. The glenohumeral joint is intact. The acromioclavicular and coracoclavicular intervals are normal. No fracture or dislocation is seen. There is cortical irregularity of the greater tuberosity of the proximal right humerus. No focal soft tissue calcification or foreign body is seen. There is no right pneumothorax. XR/XR shoulder RT min 2V IMPRESSION: 1. No fracture or dislocation is seen. 2. Findings suggest possible mild right rotator cuff impingement.
== END 2023-07-11 12:55 | disposition home or self-care (01) ==
LOC: HO.HOSX 12:54
PROVIDERS: Visit Provider Physician Assistant
DX: M19.011 Primary osteoarthritis, right shoulder (principal); M75.81 Other shoulder lesions, right shoulder
CPT/HCPCS: 20610; 73030; 99202; J1040

== ENCOUNTER 2023-07-25 12:55 | Outpatient (AMB) | payer OTHER, SELFPAY ==
[2023-07-25 13:10] VITALS: BP 112/62; PULSE 61; O2SAT 100; BMI 31.6
--- NOTE | 2023-07-25 13:10 | MHC.OFFVIS ---
Intake Vital Signs 07/25/23 13:10 Height 4 ft 11 in Weight 156 lb 8.451 oz BMI 31.6 BP 112/62 Blood Pressure Location Rt brachial Position Sitting Pulse 61 Pulse Source Doppler Pulse Oximetry (%) 100 Oxygen Delivery Method Room Air Intake Visit Reasons: post covid Allergies seafood Allergy (Severe, Verified 07/25/23 13:15) Anaphylaxis vancomycin [VANCOMYCIN] Allergy (Severe, Verified 07/25/23 13:15) ANAPHYLAXIS, hives aspirin [ASPIRIN] Allergy (Intermediate, Verified 07/25/23 13:15) rash, asthma codeine [CODEINE] Allergy (Mild, Verified 07/25/23 13:15) rash egg [EGGS] Allergy (Mild, Verified 07/25/23 13:15) VOMITING peanut [PEANUTS] Allergy (Mild, Verified 07/25/23 13:15) HIVES,DIARRHEA amoxicillin [From Augmentin] Allergy (Verified 07/25/23 13:15) hives, swelling, difficulty breathing clavulanic acid [From Augmentin] Allergy (Verified 07/25/23 13:15) hives, swelling mushroom Allergy (Verified 07/25/23 13:15) Rash lactose Adverse Reaction (Intermediate, Verified 07/25/23 13:15) diarrhea HPI post covid HPI Details 62-year-old lady, lifetime nonsmoker, followed for severe persistent asthma, environmental allergies, and post COVID-19 syndrome.? Patient was not able to tolerate immunologic therapy for her asthma including Fasenra and Xolair, but had good response with Dupixent. She also has had significant side effects after COVID vaccines.? She continues to use his Symbicort and albuterol MDI.? She denies any recent exacerbations. Her symptoms are well controlled at this time. Today she does complain of IBS symptoms and requests Zofran for nausea. [facility] Medical History (Updated 07/11/23 @ 11:54 by Yuli Meléndez PA-C) COVID-19 Pneumonia IBS (irritable bowel syndrome) Hypertension Pre-eclampsia Irritable bowel syndrome with both constipation and diarrhea Gallstones Surgical History H/O cervical polypectomy Hx of esophagogastroduodenoscopy H/O colonoscopy History of surgical removal of pilonidal cyst S/P tonsillectomy History of section History of cholecystectomy Family History (Updated 05/31/23 @ 11:35 by Moshe Warren Angie) Father Heart attack GERD (gastroesophageal reflux disease) Peptic ulcer disease Mother CHF (congestive heart failure) Afib Diverticulitis History of bowel resection Hypothyroid COVID-19 Maternal Aunt Diabetes Maternal Uncle Cancer Maternal Grandmother Cancer Social History Household Members: Spouse Housing: Apartment Are you a primary manager medicare marketing to a significant other at home: No Do you presently have visiting nurse or other home services: Yes (phone visits) Alcohol intake: former Patient Tobacco Use Status: Never used Tobacco service: No Current occupational status: retired Female Reproductive History Menstrual Age of Menarche: 10 Review of Systems Const Denies daytime sleepiness, Denies excessive sweating, Denies fatigue, Denies fever(s), Denies lethargy, Denies malaise, Denies night sweats, Denies snoring and Denies weight loss Eyes Denies blurry vision and Denies itchy eyes ENT Denies nasal congestion, Denies post nasal drip, Denies sinus pain, Denies sinus pressure and Denies other ( Thrush) Card Denies chest pain, Denies pedal edema, Denies dyspnea, Denies orthopnea and Denies paroxysmal nocturnal dyspnea Resp Denies cough, Denies hemoptysis, Denies excessive phlegm production, Denies dyspnea, Denies snoring and Denies wheezing GI Denies abdominal pain, Denies heartburn and Reports nausea Musc Denies myalgias, Denies arthralgias and Denies joint swelling Skin/Breast Denies rash Neuro Denies memory loss and Denies seizure-like activity Psych Denies abnormal sleep pattern, Denies anxiety and Denies memory loss Endo Denies excessive sweating, Denies fatigue and Denies heat intolerance Migue/Lymph Denies easy bruising Aller/Immun Denies itchy eyes, Denies seasonal rhinorrhea and Denies wheezing Physical Exam Vital Signs: Last Vital Signs Pulse 61 07/25/23 13:10 BP 112/62 07/25/23 13:10 Pulse Ox 100 07/25/23 13:10 Oxygen Delivery Method Room Air 07/25/23 13:10 BMI result Body Mass Index 31.6 Const General: no acute distress and alert Nutritional Appearance: not obese Orientation/consciousness: Other orientation findings ( oriented) HEENT Head: Yes atraumatic Eyes General: appearance normal, both eyes and all related structures Sclerae: sclerae normal EOM: EOMs intact bilaterally Neck Neck: Yes supple Lymphatic: no lymphadenopathy noted Resp Effort & Inspection: normal respiratory effort and no use of accessory muscles Auscultation: clear to auscultation bilaterally Cardio Rate: regular rate Rhythm: regular rhythm Heart sounds: no gallops, no murmurs and no rubs Skin General skin exam: other ( warm) Extrem General: No clubbing, No cyanosis and No edema Assessment & Plan Assessment & Plan (1) Asthma: Code(s): J45.909 - Unspecified asthma, uncomplicated Qualifiers: Asthma severity: moderate Asthma persistence: persistent Asthma complication type: uncomplicated Qualified Code(s): J45.40 - Moderate persistent asthma, uncomplicated Plan: Well controlled on Dupixent, Symbicort, and albuterol MDI. Continue current regimen. (2) Environmental allergies: Code(s): Z91.09 - Other allergy status, other than to drugs and biological substances Plan: Well controlled on Dupixent. Continue current regimen. Plan Zofran 7 days for symptomatic relief of nausea associated with IBS. Medications: New ondansetron 4 mg PO Q8H PRN 14 tabs 0RF nausea and vomiting 7 days Coding Level of Care Code Est Pt Level 4 (21590) Diagnoses Moderate persistent asthma without complication J45.40 Asthma severity: moderate Asthma persistence: persistent Asthma complication type: uncomplicated Environmental allergies Z91.09
== END 2023-07-25 13:35 | disposition home or self-care (01) ==
PROVIDERS: PCP Internal Medicine; Visit Provider Internal Medicine Pulmonary Disease
DX: J45.40 Moderate persistent asthma, uncomplicated (principal); Z91.09 Other allergy status, other than to drugs and biological substances
CPT/HCPCS: 99214

== ENCOUNTER → 2023-07-25 12:55 | Outpatient (BNVA) | payer OTHER, SELFPAY | PROVIDERS: PCP Internal Medicine; Visit Provider Internal Medicine Pulmonary Disease | DX: J45.40 Moderate persistent asthma, uncomplicated (principal); Z91.09 Other allergy status, other than to drugs and biological substances | CPT/HCPCS: 99212 ==

== ENCOUNTER 2023-08-03 11:52 | Outpatient (REF) | payer OTHER, SELFPAY ==
[2023-08-03 12:55] LABS: MANUAL DIFF FLAG NO
[2023-08-03 14:11] LABS: Basophils Percent Auto 0.7 % (0-2); Eosinophils Absolute Auto 0.1 X10*3/uL (0.0-0.4); Eosinophils Percent Auto 1.3 % (0-4); Hematocrit 39.4 % (37.0-47.0); Hemoglobin 13.2 g/dl (12.0-16.0); Imm Gran Abs Auto 0.01 X10*3/uL (0.00-0.03); Imm Gran Pct Auto 0.2 % (0.0-0.4); Lymphocytes Absolute Auto 1.7 X10*3/uL (1.2-4.9); Lymphocytes Percent Auto 28.6 % (20-40); Mean Corpuscular HGB Conc 33.5 g/dl (31.0-35.0); Mean Corpuscular Hemoglobin 28.8 pg (27.0-33.0); Mean Corpuscular Volume 85.8 fL (80.0-98.0); Mean Platelet Volume 11.6 fL (9.4-12.3); Monocytes Absolute Auto 0.3 X10*3/uL (0.1-1.2); Monocytes Percent Auto 4.9 % (2-11); Neutrophils Absolute Auto 3.8 x10*3/uL (2.0-8.3); Neutrophils Percent Auto 64.3 % (45-73); Platelet Count 208 X10*3/uL (160-400); Red Blood Count 4.59 X10*6/uL (4.20-5.50); Red Cell Distribution Width 11.8 % (11.0-16.0); White Blood Count 5.9 X10*3/uL (4.8-10.8)
[2023-08-03 15:20] LABS: C Reactive Protein 0.61 mg/dL (< or = 0.50)
== END 2023-08-03 11:53 | disposition home or self-care (01) ==
LOC: HO.LAB 11:52
PROVIDERS: PCP Internal Medicine; Visit Provider Nurse Practitioner
DX: R19.7 Diarrhea, unspecified (principal); K21.9 Gastro-esophageal reflux disease without esophagitis; K58.2 Mixed irritable bowel syndrome
CPT/HCPCS: 36415; 85025; 86140; 99212

== ENCOUNTER 2023-08-03 11:52 | Outpatient (AMB) | payer OTHER, SELFPAY ==
[2023-08-03 12:00] VITALS: BP 155/72; PULSE 70; BMI 31.3
--- NOTE | 2023-08-03 12:00 | MHC.OFFVIS ---
Intake Vital Signs 08/03/23 12:00 Height 4 ft 11 in Weight 154 lb 12.232 oz BMI 31.3 BP 155/72 H Blood Pressure Location Rt brachial Position Sitting Pulse 70 Pulse Source Pulse Oximeter Intake Visit Reasons: 6 mnth f/u Intake Note: Pt presents to the office today for a 6 month follow up. Pt states she is still having a lot of issues with abdominal bloating. Pt states she has been experiencing nausea and vomiting on and off since Jul 23 for 1 week and went away. Pt states today she is experiencing nausea again. Pt states she also has been experiencing diarrhea for 3 weeks. Allergies seafood Allergy (Severe, Verified 08/30/23 12:36) Anaphylaxis vancomycin [VANCOMYCIN] Allergy (Severe, Verified 08/30/23 12:36) ANAPHYLAXIS, hives aspirin [ASPIRIN] Allergy (Intermediate, Verified 08/30/23 12:36) rash, asthma codeine [CODEINE] Allergy (Mild, Verified 08/30/23 12:36) rash egg [EGGS] Allergy (Mild, Verified 08/30/23 12:36) VOMITING peanut [PEANUTS] Allergy (Mild, Verified 08/30/23 12:36) HIVES,DIARRHEA amoxicillin [From Augmentin] Allergy (Verified 08/30/23 12:36) hives, swelling, difficulty breathing clavulanic acid [From Augmentin] Allergy (Verified 08/30/23 12:36) hives, swelling mushroom Allergy (Verified 08/30/23 12:36) Rash lactose Adverse Reaction (Intermediate, Verified 08/30/23 12:36) diarrhea HPI 6 mnth f/u HPI Details Assessment & Plan (1) Irritable bowel syndrome with both constipation and diarrhea: Comment: now more bile salt diarrhea since she is status post cholecystectomy Code(s): K58.2 - Mixed irritable bowel syndrome Plan: She stopped the simethicone because when she took it qhs she was up all night burping. However, her urinary sx resolved. She continues to have equal CIC and diarrhea. I suggest, at this point, fiber such as Benefiber or Citracel bid. She was educated about the role of fiber for balancing the GI tract particularly this is important therapy for those having mixed irritable bowel syndrome. She has sucralfate available to her as well as dicyclomine but she has not been able to balance this out with these agents. Her GERD is controlled on her omeprazole bid. ROV 6 mos. (2) GERD (gastroesophageal reflux disease): Code(s): K21.9 - Gastro-esophageal reflux disease without esophagitis (3) Abdominal bloating: Code(s): R14.0 - Abdominal distension (gaseous) Medications: New methylcellulose (l axative) (Fiber La xative (methylcell ulose)) 500 mg PO BID 60 tabs 6RF Discontinued simethicone aft er meals Discon tinued Reason: Do ctor's Order 180 mg PO QID 30 days 120 caps 3RF TODAYS VISIT She developed sudden onset of N/V/D cramping. She thought it was a stomach bug. She got zofran from her pulm (Mariia) and used bentyl and carafate. She cannot identify any changes in medications, sick contacts, possible team to food and the only new thing is she had an in check shins in her right shoulder that did not go well. Apparently she had quite a bit of redness heat pain and swelling and the swelling even extended down her lateral back. This is resolving but she still has pain. She does have multiple food allergies and she recently also had an anaphylactic reaction to the clavulanate component of amoxicillin. She took 3 Benadryl and waited for to get better. She is considering asking for an EpiPen with her cutter first/iron pellet tester. I would prescribe this however she is having some unstable hypertension and tachycardia so this would have to be determined in terms of necessity by the respiratory provider. I think because she is continuing to have postprandial stooling with urgency despite being soft that this is all due to the Carafate. I explained this to her in asked her to try to stop the Carafate temporarily to see if she can get me a diarrheal sample so that the lab will run it. Want to rule out a severe infection such as C diff that would need to be treated with antibiotics. Will also get a CRP to see if there is any reason to suspect autoimmune disease. Return office visit in 4 weeks to evaluate the tests and her response to treatment. [facility] Medical History (Updated 08/30/23 @ 12:47 by SHYANN Manning) Vaginal itching Hx of human papillomavirus infection Candidiasis of mouth and esophagus Abdominal cramping Pneumonia Bile salt-induced diarrhea History of pilonidal cyst Abdominal bloating Gastritis COVID-19 IBS (irritable bowel syndrome) Hypertension Pre-eclampsia Irritable bowel syndrome with both constipation and diarrhea Gallstones Surgical History (Updated 08/30/23 @ 12:47 by SHYANN Manning) H/O cervical polypectomy Hx of esophagogastroduodenoscopy H/O colonoscopy History of surgical removal of pilonidal cyst S/P tonsillectomy History of section History of cholecystectomy Family History Father Heart attack GERD (gastroesophageal reflux disease) Peptic ulcer disease Mother CHF (congestive heart failure) Afib Diverticulitis History of bowel resection Hypothyroid COVID-19 Maternal Aunt Diabetes Maternal Uncle Cancer Maternal Grandmother Cancer Social History Household Members: Spouse Housing: Apartment Are you a primary foster care therapist to a significant other at home: No Do you presently have visiting nurse or other home services: Yes (phone visits) Alcohol intake: former Patient Tobacco Use Status: Never used Tobacco service: No Current occupational status: retired Female Reproductive History Menstrual Age of Menarche: 10 Review of Systems Const Denies fatigue, Denies fever(s), Denies night sweats, Reports poor appetite and Denies weight loss ENT Reports Normal hearing present, Denies dental pain, Denies dysphagia, Denies hearing loss, Denies mouth pain, Denies odynophagia, Denies throat swelling, Denies tongue swelling and Reports other (Dentition adequate) Card Reports no additional complaints Resp Reports no additional complaints GI Reports abdominal pain, Denies melena, Denies bloating, Denies hematochezia, Reports tenesmus, Denies constipation, Reports GI cramping, Denies dysphagia, Reports excessive flatus, Denies early satiety, Reports heartburn, Reports diarrhea, Reports nausea, Denies odynophagia, Reports vomiting and Denies hematemesis Skin/Breast Denies pruritus, Denies lesions, Denies rash and Denies jaundice Neuro Reports Normal hearing present and Denies Abnormal speech present Endo Denies fatigue Aller/Immun Denies throat swelling and Denies tongue swelling Physical Exam Vital Signs: Last Vital Signs Pulse 70 08/03/23 12:00 BP 155/72 H 08/03/23 12:00 BMI result Body Mass Index 31.3 Const General: cooperative, no acute distress, well developed and well groomed Nutritional Appearance: well nourished and obese Orientation/consciousness: oriented to person, oriented to place and oriented to time Limitations: No language barrier HEENT Head: Yes normocephalic and Yes atraumatic Eyes General: appearance normal, both eyes and all related structures Pupils: Equal, round and reactive pupils present Neck Neck: Yes normal visual inspection and Yes no lymphadenopathy Thyroid: Thyroid normal Resp Effort & Inspection: normal respiratory effort and able to speak in complete sentences Auscultation: clear to auscultation bilaterally Cardio Rate: regular rate Rhythm: regular rhythm Heart sounds: Normal, physiologic split S2 sound present Peripheral pulses: radial pulses present and posterior tibial pulses present GI Inspection: No distended, Yes Abdominal panniculus present and Yes obesity Palpation (GI): Soft to palpation, Tenderness to palpation present (GI) periumbilically, no guarding, not rigid and No hepatosplenomegaly present Percussion: Yes normal to percussion Auscultation: normal bowel sounds Rectal Exam - Female: deferred Skin General skin exam: no rashes or lesions noted, turgor normal, skin not dry, no jaundice, No spider nevi and no striae Rashes: no rashes Nails: normal Neuro General: oriented to person, oriented to place and oriented to time Cranial nerves: Yes Equal, round and reactive pupils present and Yes Normal hearing present Speech: No Abnormal speech present Extrem General: Yes normal to inspection, No clubbing, No cyanosis and No edema Psych Appearance: grossly normal and well kempt Mental Status: mental status grossly normal Speech and movement: Normal speech and movement present Affect: normal affect Attitude: cooperative Thought process: Normal thought process present and not confabulating Thought content: Normal thought content present Insight: Fair insight present (Psych) Judgement: Fair judgement present (Psych) Assessment & Plan Assessment & Plan (1) Acute diarrhea: Code(s): R19.7 - Diarrhea, unspecified (2) GERD (gastroesophageal reflux disease): Code(s): K21.9 - Gastro-esophageal reflux disease without esophagitis (3) Irritable bowel syndrome with both constipation and diarrhea: Comment: now more bile salt diarrhea since she is status post cholecystectomy Code(s): K58.2 - Mixed irritable bowel syndrome Plan She developed sudden onset of N/V/D cramping. She thought it was a stomach bug. She got zofran from her pulm (Mariia) and used bentyl and carafate. She cannot identify any changes in medications, sick contacts, possible team to food and the only new thing is she had an in check shins in her right shoulder that did not go well. Apparently she had quite a bit of redness heat pain and swelling and the swelling even extended down her lateral back. This is resolving but she still has pain. She does have multiple food allergies and she recently also had an anaphylactic reaction to the clavulanate component of amoxicillin. She took 3 Benadryl and waited for to get better. She is considering asking for an EpiPen with her cutter first/iron pellet tester. I would prescribe this however she is having some unstable hypertension and tachycardia so this would have to be determined in terms of necessity by the respiratory provider. I think because she is continuing to have postprandial stooling with urgency despite being soft that this is all due to the Carafate. I explained this to her in asked her to try to stop the Carafate temporarily to see if she can get me a diarrheal sample so that the lab will run it. Want to rule out a severe infection such as C diff that would need to be treated with antibiotics. Will also get a CRP to see if there is any reason to suspect autoimmune disease. Return office visit in 4 weeks to evaluate the tests and her response to treatment. Orders: Orders CDiff Gene PCR 08/03/23 R19.7 - Diarrhea, unspecified Complete Blood Count Auto Diff 08/03/23 R19.7 - Diarrhea, unspecified GI Panel 08/03/23 R19.7 - Diarrhea, unspecified C Reactive Protein 08/03/23 R19.7 - Diarrhea, unspecified Calprotectin, Fecal 08/03/23 R19.7 - Diarrhea, unspecified Medications: Changed From sucralfate 3 grams (3 x 1 gram) PO DAILY 90 tabs 6RF K90.89 - Other intestinal malabsorption To sucralfate 3 grams (3 x 1 gram) PO DAILY 90 tabs 6RF K90.89 - Other intestinal malabsorption Refilled ondansetron 4 mg PO Q8H PRN 14 tabs 0RF nausea and vomiting 7 days dicyclomine 20 mg PO QID 120 tabs 6RF 30 days K58.2 - Mixed irritable bowel syndrome, R10.9 - Unspecified abdominal pain Coding Level of Care Code Est Pt Level 3 (54205) Diagnoses Acute diarrhea R19.7 GERD (gastroesophageal reflux disease) K21.9 Irritable bowel syndrome with both constipation and diarrhea K58.2
== END 2023-08-03 12:35 | disposition home or self-care (01) ==
PROVIDERS: Visit Provider Nurse Practitioner
DX: R19.7 Diarrhea, unspecified (principal); K21.9 Gastro-esophageal reflux disease without esophagitis; K58.2 Mixed irritable bowel syndrome
CPT/HCPCS: 99213

== ENCOUNTER 2023-08-28 15:00 | Outpatient (REF) | payer OTHER, SELFPAY ==
[2023-08-28 16:00] LABS: CDiff Gene PCR NEGATIVE (Negative)
[2023-08-29 14:48] LABS: Adenovirus F 40/41 Not Detected (Not Detect.); Astrovirus Not Detected (Not Detect.); Campylobacter Not Detected (Not Detect.); Cryptosporidium Not Detected (Not Detect.); Cyclospora cayetanensis Not Detected (Not Detect.); E. coli EAEC Not Detected (Not Detect.); E. coli EPEC Not Detected (Not Detect.); E. coli ETEC Not Detected (Not Detect.); E. coli STEC Not Detected (Not Detect.); Entamoeba histolytica Not Detected (Not Detect.); Giardia lamblia Not Detected (Not Detect.); Norovirus GI/GII Not Detected (Not Detect.); Plesiomonas shigelloides Not Detected (Not Detect.); Rotavirus A Not Detected (Not Detect.); Salmonella Not Detected (Not Detect.); Sapovirus Not Detected (Not Detect.); Shigella sp./EIEC Not Detected (Not Detect.); Vibrio Not Detected (Not Detect.); Vibrio Cholerae Not Detected (Not Detect.); Yersinia enterocolitica Not Detected (Not Detect.)
[2023-09-03 23:13] LABS: Calprotectin, Fecal 73 mcg/g
== END 2023-08-28 15:01 | disposition home or self-care (01) ==
LOC: HO.LNP 15:00
PROVIDERS: Visit Provider Nurse Practitioner
DX: R19.7 Diarrhea, unspecified (principal)
CPT/HCPCS: 83993; 87493; 87507

== ENCOUNTER 2023-08-30 12:34 | Outpatient (AMB) | payer OTHER, SELFPAY ==
--- NOTE | 2023-08-30 12:36 | MHC.OFFVIS ---
Intake Vital Signs 08/30/23 12:40 Height 4 ft 11 in Weight 153 lb BMI 30.9 BP 176/72 H Blood Pressure Location Lt brachial Position Sitting Pulse 65 Intake Visit Reasons: 4 week follow up Intake Note: Patient 4 weeks follow up Patient cc: diarrhea, abdominal pain, and acid reflex. Denies any other any GI issues. 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 Accompanied by: Self / Same As Patient Allergies seafood Allergy (Severe, Verified 08/30/23 12:36) Anaphylaxis vancomycin [VANCOMYCIN] Allergy (Severe, Verified 08/30/23 12:36) ANAPHYLAXIS, hives aspirin [ASPIRIN] Allergy (Intermediate, Verified 08/30/23 12:36) rash, asthma codeine [CODEINE] Allergy (Mild, Verified 08/30/23 12:36) rash egg [EGGS] Allergy (Mild, Verified 08/30/23 12:36) VOMITING peanut [PEANUTS] Allergy (Mild, Verified 08/30/23 12:36) HIVES,DIARRHEA amoxicillin [From Augmentin] Allergy (Verified 08/30/23 12:36) hives, swelling, difficulty breathing clavulanic acid [From Augmentin] Allergy (Verified 08/30/23 12:36) hives, swelling mushroom Allergy (Verified 08/30/23 12:36) Rash lactose Adverse Reaction (Intermediate, Verified 08/30/23 12:36) diarrhea HPI 4 week follow up HPI Details Assessment & Plan (1) GERD (gastroesophageal reflux disease): Code(s): K21.9 - Gastro-esophageal reflux disease without esophagitis (2) Irritable bowel syndrome with both constipation and diarrhea: Comment: now more bile salt diarrhea since she is status post cholecystectomy Code(s): K58.2 - Mixed irritable bowel syndrome (3) Acute diarrhea: Code(s): R19.7 - Diarrhea, unspecified Orders: Orders CDiff Gene PCR Today R19.7 - Diarrhea, unspecified Complete Blood Cou nt Auto Diff Today R19.7 - Diarrhea, unspecified GI Panel Today R19.7 - Diarrhea, unspecified C Reactive Protein Today R19.7 - Diarrhea, unspecified Calprotectin, Feca l Today R19.7 - Diarrhea, unspecified Medications: Refilled sucralfate 3 grams (3 x 1 gra m) PO DAILY 90 tab s 6RF K90.89 - Other int estinal malabsorpt ion ondansetron 4 mg PO Q8H 7 day s PRN 14 tabs 0RF nausea and vomitin g dicyclomine 20 mg PO QID 30 d ays 120 tabs 6RF K58.2 - Mixed irri table bowel syndro me, R10.9 - Unspec ified abdominal pa in She developed sudden onset of N/V/D cramping. She thought it was a stomach bug. She got zofran from her pulm (Mariia) and used bentyl and carafate. She cannot identify any changes in medications, sick contacts, possible team to food and the only new thing is she had an in check shins in her right shoulder that did not go well. Apparently she had quite a bit of redness heat pain and swelling and the swelling even extended down her lateral back. This is resolving but she still has pain. She does have multiple food allergies and she recently also had an anaphylactic reaction to the clavulanate component of amoxicillin. She took 3 Benadryl and waited for to get better. 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 I would prescribe this however she is having some unstable hypertension and tachycardia so this would have to be determined in terms of necessity by the respiratory provider. I think because she is continuing to have postprandial stooling with urgency despite being soft that this is all due to the Carafate. I explained this to her in asked her to try to stop the Carafate temporarily to see if she can get me a diarrheal sample so that the lab will run it. Want to rule out a severe infection such as C diff that would need to be treated with antibiotics. Will also get a CRP to see if there is any reason to suspect autoimmune disease. LABS:: Laboratory Tests 08/03/23 08/03/23 08/28/23 12:54 12:54 14:40 WBC 5.9 Hgb 13.2 Hct 39.4 Plt Count 208 C-Reactive Protein 0.61 H Stool Calprotectin Pending C. difficile Tox B Gene 08/28/23 14:40 WBC Hgb Hct Plt Count C-Reactive Protein Stool Calprotectin C. difficile Tox B Gene NEGATIVE 08/28/23-[address]: ORDERED: GI Panel Test Result Flag Refere nce Si te Campylobacter No t Detected Not Det ect. P. shigelloides Not Detected Not Detec t. S almonella Not De tected Not Detect. Vib dennis Not Dete cted Not Detect. Vibri o Cholerae Not Detect ed Not Detect. Y. ente rocolit. Not Detected Not Detect. E. coli E AEC Not Detected N ot Detect. E. coli EPE C Not Detected Not Detect. E. coli ETEC Not Detected Not D etect. E. coli STEC No t Detected Not Det ect. E. coli O157 Not a pplicable Not Detec t. E. coli contai chepe the O157 anti gen are a subset o f Shiga-lik e toxin-producing E. coli (STEC). Shigella/EIEC Not D etected Not Detect . Cr yptosporidium Not Det ected Not Detect. Cycl ospora Not Detec mary Not Detect. E. his [place] Not Detecte d Not Detect. Giardia lamblia Not Detected Not Detect. Adenovirus Not Detected No t Detect. Astrovirus Not Detected Not Detect. Norovirus N ot Detected Not De tect. Rotavirus A Not Detected Not Dete ct. Sapovirus Not D etected Not Detect . TODAY'S VISIT STOOL CALPROTECTIN IS PENDING. The nausea is gone, but she still has post prandial stooling that is soft for the first 2 mvmts but then watery. She has NOT been taking the carafate. I think I will have her restart the Carafate since the postprandial stooling is bothering her enough that she has been limiting herself to 2 meals a day. This may help her to eat more substantially. She is s/p anmu. We reviewed the labs and there is no sign of infection, at least at this point. This does not preclude the possibility of an infection that is already cleared. We're still waiting for the fecal calprotectin to come back to exclude inflammatory bowel disease. She still is struggling with her right shoulder pain, she had an injection that made it hurt worse. ROV 8 weeks. PENDING SALE TO [facility] Medical History (Updated 08/30/23 @ 12:47 by SHYANN Manning) Vaginal itching Hx of human papillomavirus infection Candidiasis of mouth and esophagus Abdominal cramping Pneumonia Bile salt-induced diarrhea History of pilonidal cyst Abdominal bloating Gastritis COVID-19 IBS (irritable bowel syndrome) Hypertension Pre-eclampsia Irritable bowel syndrome with both constipation and diarrhea Gallstones Surgical History (Updated 08/30/23 @ 12:47 by SHYANN Manning) H/O cervical polypectomy Hx of esophagogastroduodenoscopy H/O colonoscopy History of surgical removal of pilonidal cyst S/P tonsillectomy History of section History of cholecystectomy Family History Father Heart attack GERD (gastroesophageal reflux disease) Peptic ulcer disease Mother CHF (congestive heart failure) Afib Diverticulitis History of bowel resection Hypothyroid COVID-19 Maternal Aunt Diabetes Maternal Uncle Cancer Maternal Grandmother Cancer Social History Household Members: Spouse Housing: Apartment Are you a primary career center advisor to a significant other at home: No Do you presently have visiting nurse or other home services: Yes (phone visits) Alcohol intake: former Patient Tobacco Use Status: Never used Tobacco service: No Current occupational status: retired Female Reproductive History Menstrual Age of Menarche: 10 Review of Systems Const Denies fatigue, Denies fever(s), Denies night sweats, Denies poor appetite and Denies weight loss ENT Reports Normal hearing present, Denies dental pain, Denies dysphagia, Denies hearing loss, Denies mouth pain, Denies odynophagia, Denies throat swelling, Denies tongue swelling and Reports other (Dentition adequate) Card Reports no additional complaints Resp Reports no additional complaints GI Denies abdominal pain, Denies melena, Denies bloating, Denies hematochezia, Denies constipation, Reports GI cramping, Denies dysphagia, Denies excessive flatus, Denies early satiety, Reports heartburn, Reports diarrhea, Denies nausea, Denies odynophagia, Denies vomiting and Denies hematemesis Skin/Breast Denies pruritus, Denies lesions, Denies rash and Denies jaundice Neuro Reports Normal hearing present and Denies Abnormal speech present Endo Denies fatigue Aller/Immun Denies throat swelling and Denies tongue swelling Physical Exam Vital Signs: Last Vital Signs Pulse 65 08/30/23 12:40 BP 176/72 H 08/30/23 12:40 BMI result Body Mass Index 30.9 Const General: cooperative, no acute distress, well developed and well groomed Nutritional Appearance: well nourished and overweight Orientation/consciousness: oriented to person, oriented to place and oriented to time Limitations: No language barrier HEENT Head: Yes normocephalic and Yes atraumatic Eyes General: appearance normal, both eyes and all related structures Pupils: Equal, round and reactive pupils present Neck Neck: Yes normal visual inspection and Yes no lymphadenopathy Thyroid: Thyroid normal Resp Effort & Inspection: normal respiratory effort and able to speak in complete sentences Auscultation: clear to auscultation bilaterally Cardio Rate: regular rate Rhythm: regular rhythm Heart sounds: Normal, physiologic split S2 sound present Peripheral pulses: radial pulses present and posterior tibial pulses present GI Inspection: No distended, No Abdominal panniculus present and Yes obesity Palpation (GI): Soft to palpation, nontender, no guarding, not rigid and No hepatosplenomegaly present Percussion: Yes normal to percussion Auscultation: normal bowel sounds Rectal Exam - Female: deferred Skin General skin exam: no rashes or lesions noted, turgor normal, skin not dry, no jaundice, No spider nevi and no striae Rashes: no rashes Nails: normal Neuro General: oriented to person, oriented to place and oriented to time Cranial nerves: Yes Equal, round and reactive pupils present and Yes Normal hearing present Speech: No Abnormal speech present Extrem General: Yes normal to inspection, No clubbing, No cyanosis and No edema Psych Appearance: grossly normal and well kempt Mental Status: mental status grossly normal Speech and movement: Normal speech and movement present Affect: normal affect Attitude: cooperative Thought process: Normal thought process present and not confabulating Thought content: Normal thought content present Insight: Fair insight present (Psych) Judgement: Fair judgement present (Psych) Results Reviewed Results Reviewed: Laboratory Tests 08/03/23 08/03/23 08/28/23 12:54 12:54 14:40 WBC 5.9 Hgb 13.2 Hct 39.4 Plt Count 208 C-Reactive Protein 0.61 H Stool Calprotectin Pending C. difficile Tox B Gene 08/28/23 14:40 WBC Hgb Hct Plt Count C-Reactive Protein Stool Calprotectin C. difficile Tox B Gene NEGATIVE 08/28/23-[address]: ORDERED: GI Panel Test Result Flag Reference Site Campylobacter Not Detected Not Detect. P. shigelloides Not Detected Not Detect. Salmonella Not Detected Not Detect. Vibrio Not Detected Not Detect. Vibrio Cholerae Not Detected Not Detect. Y. enterocolit. Not Detected Not Detect. E. coli EAEC Not Detected Not Detect. E. coli EPEC Not Detected Not Detect. E. coli ETEC Not Detected Not Detect. E. coli STEC Not Detected Not Detect. E. coli O157 Not applicable Not Detect. E. coli containing the O157 antigen are a subset of Shiga-like toxin-producing E. coli (STEC). Shigella/EIEC Not Detected Not Detect. Cryptosporidium Not Detected Not Detect. Cyclospora Not Detected Not Detect. E. histolytica Not Detected Not Detect. Giardia lamblia Not Detected Not Detect. Adenovirus Not Detected Not Detect. Astrovirus Not Detected Not Detect. Norovirus Not Detected Not Detect. Rotavirus A Not Detected Not Detect. Sapovirus Not Detected Not Detect. Assessment & Plan Assessment & Plan (1) Acute diarrhea: Code(s): R19.7 - Diarrhea, unspecified (2) Irritable bowel syndrome with both constipation and diarrhea: Comment: now more bile salt diarrhea since she is status post cholecystectomy Code(s): K58.2 - Mixed irritable bowel syndrome Plan STOOL CALPROTECTIN IS PENDING. The nausea is gone, but she still has post prandial stooling that is soft for the first 2 mvmts but then watery. She has NOT been taking the carafate. I think I will have her restart the Carafate since the postprandial stooling is bothering her enough that she has been limiting herself to 2 meals a day. This may help her to eat more substantially. She is s/p anum. We reviewed the labs and there is no sign of infection, at least at this point. This does not preclude the possibility of an infection that is already cleared. We're still waiting for the fecal calprotectin to come back to exclude inflammatory bowel disease. She still is struggling with her right shoulder pain, she had an injection that made it hurt worse. ROV 8 weeks. Medications: Refilled sucralfate 3 grams (3 x 1 gram) PO DAILY 90 tabs 6RF K90.89 - Other intestinal malabsorption Coding Level of Care Code Est Pt Level 3 (09278) Diagnoses Acute diarrhea R19.7 Irritable bowel syndrome with both constipation and diarrhea K58.2
[2023-08-30 12:40] VITALS: BP 176/72; PULSE 65; BMI 30.9
== END 2023-08-30 13:13 | disposition home or self-care (01) ==
PROVIDERS: PCP Internal Medicine; Visit Provider Nurse Practitioner
DX: R19.7 Diarrhea, unspecified (principal); K58.2 Mixed irritable bowel syndrome
CPT/HCPCS: 99213

== ENCOUNTER → 2023-08-30 12:34 | Outpatient (BNVA) | payer OTHER, SELFPAY | PROVIDERS: PCP Internal Medicine; Visit Provider Nurse Practitioner | DX: K58.2 Mixed irritable bowel syndrome (principal); R19.7 Diarrhea, unspecified | CPT/HCPCS: 99212 ==

== ENCOUNTER 2023-10-25 12:47 | Outpatient (AMB) | payer OTHER, SELFPAY ==
--- NOTE | 2023-10-25 13:06 | MHC.OFFVIS ---
Intake Vital Signs 10/25/23 13:16 Height 4 ft 11 in Weight 154 lb 5.177 oz BMI 31.2 BP 176/77 H Blood Pressure Location Lt brachial Position Sitting Pulse 60 Intake Visit Reasons: 8 week follow up Intake Note: Patient return to in office visit today in 8 weeks follow up of abdominal pain. CC: Patient states she still has diarrhea sometimes, RUQ abdominal pain worst after eating red meats, lower back cramps x2 weeks, and acid reflex. She also reports that when she is doing heavy work she feels her upper abdomen gets inflamed. Denies any other any GI issues. Professional Services Specialist Required: No Accompanied by: Self / Same As Patient Allergies seafood Allergy (Severe, Verified 10/25/23 13:24) Anaphylaxis vancomycin [VANCOMYCIN] Allergy (Severe, Verified 10/25/23 13:24) ANAPHYLAXIS, hives aspirin [ASPIRIN] Allergy (Intermediate, Verified 10/25/23 13:24) rash, asthma codeine [CODEINE] Allergy (Mild, Verified 10/25/23 13:24) rash egg [EGGS] Allergy (Mild, Verified 10/25/23 13:24) VOMITING peanut [PEANUTS] Allergy (Mild, Verified 10/25/23 13:24) HIVES,DIARRHEA amoxicillin [From Augmentin] Allergy (Verified 10/25/23 13:24) hives, swelling, difficulty breathing clavulanic acid [From Augmentin] Allergy (Verified 10/25/23 13:24) hives, swelling mushroom Allergy (Verified 10/25/23 13:24) Rash lactose Adverse Reaction (Intermediate, Verified 10/25/23 13:24) diarrhea HPI 8 week follow up HPI Details Assessment & Plan (1) Acute diarrhea: Code(s): R19.7 - Diarrhea, unspecified (2) Irritable bowel syndrome with both constipation and diarrhea: Comment: now more bile salt diarrhea since she is status post cholecystectomy Code(s): K58.2 - Mixed irritable bowel syndrome Plan STOOL CALPROTECTIN IS PENDING. The nausea is gone, but she still has post prandial stooling that is soft for the first 2 mvmts but then watery. She has NOT been taking the carafate. I think I will have her restart the Carafate since the postprandial stooling is bothering her enough that she has been limiting herself to 2 meals a day. This may help her to eat more substantially. She is s/p anum. We reviewed the labs and there is no sign of infection, at least at this point. This does not preclude the possibility of an infection that is already cleared. We're still waiting for the fecal calprotectin to come back to exclude inflammatory bowel disease. She still is struggling with her right shoulder pain, she had an injection that made it hurt worse. ROV 8 weeks. Medications: Refilled sucralfate 3 grams (3 x 1 gram) PO DAILY 90 tabs 6RF K90.89 - Other intestinal malabsorption : Laboratory Tests 08/28/23 14:40 Stool Calprotectin 73 TODAY'S VISIT She was taking the Carafate however she found that it constipated her taking 3 a day or even 1 a day. Her nausea is improved, and she is now having soft stools about 3 times a week which is also an improvement. She continues to have pain in the RUQ and when I feel the pain I have little lumps. This is relieved with her bentyl. She also will have severe burping that is also helped with Bentyl. She also has bloating when she does anything that involves physical activity r/t bending/twisting her torso like sweeping or mopping. This has been since her cholecystectomy. She is also c/o her BP being high, BUT WITH DISCUSSION SHE says she stopped her cardizem r/t LE edema and she could not put on her shoes. This is the most likely reason for her HTN. She will be seeing a new PCP soon in November. The last PCP told her to continue the cardizem and added chlorthalidone (a possible pancreatitis trigger) but she is not taking these. Despite her asthma, I think a trial of SOMETHING to keep her BP controlled is warranted to protect her overal risk for DC and CVA. I will give a low dose 25mg dose of metoprolol, since she has a hx of tachycardia. Will proceed to other agents until she can get a new PCP if this is not tolerated. I suggest that she try taking half a tablet of Carafate a day since I think she has an element of bile gastritis play. Hopefully we can play the symptoms down and not cause her constipation. ROV 2 weeks. [facility] Medical History Vaginal itching Hx of human papillomavirus infection Candidiasis of mouth and esophagus Abdominal cramping Pneumonia Bile salt-induced diarrhea History of pilonidal cyst Abdominal bloating Gastritis COVID-19 IBS (irritable bowel syndrome) Hypertension Pre-eclampsia Irritable bowel syndrome with both constipation and diarrhea Gallstones Surgical History (Updated 10/25/23 @ 13:38 by SHYANN Manning) H/O cervical polypectomy Hx of esophagogastroduodenoscopy H/O colonoscopy History of surgical removal of pilonidal cyst S/P tonsillectomy History of section History of cholecystectomy Family History Father Heart attack GERD (gastroesophageal reflux disease) Peptic ulcer disease Mother CHF (congestive heart failure) Afib Diverticulitis History of bowel resection Hypothyroid COVID-19 Maternal Aunt Diabetes Maternal Uncle Cancer Maternal Grandmother Cancer Social History Household Members: Spouse Housing: Apartment Are you a primary primary care sales representative to a significant other at home: No Do you presently have visiting nurse or other home services: Yes (phone visits) Alcohol intake: former Patient Tobacco Use Status: Never used Tobacco service: No Current occupational status: retired Female Reproductive History Menstrual Age of Menarche: 10 Review of Systems Const Denies fatigue, Denies fever(s), Denies night sweats, Denies poor appetite and Denies weight loss ENT Reports Normal hearing present, Denies dental pain, Denies dysphagia, Denies hearing loss, Denies mouth pain, Denies odynophagia, Denies throat swelling, Denies tongue swelling and Reports other (Dentition adequate) Card Reports rapid heart rate and Reports edema Resp Reports no additional complaints GI Details: Denies abdominal pain, Denies melena, Denies bloating, Denies hematochezia, Reports constipation, Denies GI cramping, Denies dysphagia, Denies excessive flatus, Denies early satiety, Reports heartburn, Reports diarrhea, Denies nausea, Denies odynophagia, Denies vomiting and Denies hematemesis Skin/Breast Denies pruritus, Denies lesions, Denies rash and Denies jaundice Neuro Reports Normal hearing present and Denies Abnormal speech present Endo Denies fatigue Aller/Immun Denies throat swelling and Denies tongue swelling Physical Exam Vital Signs: Last Vital Signs Pulse 60 10/25/23 13:16 BP 176/77 H 10/25/23 13:16 BMI result Body Mass Index 31.2 Const General: cooperative, no acute distress, well developed and well groomed Nutritional Appearance: well nourished and obese Orientation/consciousness: oriented to person, oriented to place and oriented to time Limitations: No language barrier HEENT Head: Yes normocephalic and Yes atraumatic Eyes General: appearance normal, both eyes and all related structures Pupils: Equal, round and reactive pupils present Neck Neck: Yes normal visual inspection and Yes no lymphadenopathy Thyroid: Thyroid normal Resp Effort & Inspection: normal respiratory effort and able to speak in complete sentences Auscultation: clear to auscultation bilaterally Cardio Rate: regular rate Rhythm: regular rhythm Heart sounds: Normal, physiologic split S2 sound present Peripheral pulses: radial pulses present and posterior tibial pulses present GI Inspection: No distended, No Abdominal panniculus present and Yes obesity Palpation (GI): Soft to palpation, nontender, no guarding, not rigid and No hepatosplenomegaly present Percussion: Yes normal to percussion Auscultation: normal bowel sounds Rectal Exam - Female: deferred Skin General skin exam: no rashes or lesions noted, turgor normal, skin not dry, no jaundice, No spider nevi and no striae Rashes: no rashes Nails: normal Neuro General: oriented to person, oriented to place and oriented to time Cranial nerves: Yes Equal, round and reactive pupils present and Yes Normal hearing present Speech: No Abnormal speech present Extrem General: Yes normal to inspection, No clubbing, No cyanosis and No edema Psych Appearance: grossly normal and well kempt Mental Status: mental status grossly normal Speech and movement: Normal speech and movement present Affect: normal affect Attitude: cooperative Thought process: Normal thought process present and not confabulating Thought content: Normal thought content present Insight: Fair insight present (Psych) and Limited insight present (Psych) Judgement: Fair judgement present (Psych) and Limited judgement present (Psych) Assessment & Plan Assessment & Plan (1) Acute diarrhea: Code(s): R19.7 - Diarrhea, unspecified (2) GERD (gastroesophageal reflux disease): Code(s): K21.9 - Gastro-esophageal reflux disease without esophagitis (3) Irritable bowel syndrome with both constipation and diarrhea: Comment: now more bile salt diarrhea since she is status post cholecystectomy Code(s): K58.2 - Mixed irritable bowel syndrome (4) HTN (hypertension), benign: Code(s): I10 - Essential (primary) hypertension Plan She was taking the Carafate however she found that it constipated her taking 3 a day or even 1 a day. Her nausea is improved, and she is now having soft stools about 3 times a week which is also an improvement. She continues to have pain in the RUQ and when I feel the pain I have little lumps. This is relieved with her bentyl. She also will have severe burping that is also helped with Bentyl. She also has bloating when she does anything that involves physical activity r/t bending/twisting her torso like sweeping or mopping. This has been since her cholecystectomy. She is also c/o her BP being high, BUT WITH DISCUSSION SHE says she stopped her cardizem r/t LE edema and she could not put on her shoes. This is the most likely reason for her HTN. She will be seeing a new PCP soon in November. The last PCP told her to continue the cardizem and added chlorthalidone (a possible pancreatitis trigger) but she is not taking these. Despite her asthma, I think a trial of SOMETHING to keep her BP controlled is warranted to protect her overal risk for DC and CVA. I will give a low dose 25mg dose of metoprolol, since she has a hx of tachycardia. Will proceed to other agents until she can get a new PCP if this is not tolerated. I suggest that she try taking half a tablet of Carafate a day since I think she has an element of bile gastritis play. Hopefully we can play the symptoms down and not cause her constipation. ROV 2 weeks. Medications: New metoprolol tartrate 25 mg PO DAILY 30 tabs 3RF I10 - Essential (primary) hypertension Refilled omeprazole 40 mg PO BID 30 days 60 caps 6RF K21.9 - Gastro-esophageal reflux disease without esophagitis dicyclomine 20 mg PO QID 30 days 120 tabs 6RF K58.2 - Mixed irritable bowel syndrome, R10.9 - Unspecified abdominal pain Patient Instructions: Ada Marcos 1.? Stop the diltazem and start the metoprolol, if you have any asthma problems just stop the metoprolol. 2.? Please take ? tablet of carafate daily and dicyclomine one in the morning and once at night. 3.? Continue your omeprazole twice a day. ROV 2 weeks. Coding Level of Care Code Est Pt Level 4 (56694) Diagnoses Acute diarrhea R19.7 GERD (gastroesophageal reflux disease) K21.9 Irritable bowel syndrome with both constipation and diarrhea K58.2 HTN (hypertension), benign I10 Time Spent (min) 42
[2023-10-25 13:16] VITALS: BP 176/77; PULSE 60; BMI 31.2
== END 2023-10-25 13:55 | disposition home or self-care (01) ==
PROVIDERS: PCP Internal Medicine; Visit Provider Nurse Practitioner
DX: R19.7 Diarrhea, unspecified (principal); K21.9 Gastro-esophageal reflux disease without esophagitis; K58.2 Mixed irritable bowel syndrome; I10 Essential (primary) hypertension
CPT/HCPCS: 99214

== ENCOUNTER → 2023-10-25 12:47 | Outpatient (BNVA) | payer OTHER, SELFPAY | PROVIDERS: PCP Internal Medicine; Visit Provider Nurse Practitioner | DX: K21.9 Gastro-esophageal reflux disease without esophagitis (principal); K58.2 Mixed irritable bowel syndrome; R19.7 Diarrhea, unspecified; I10 Essential (primary) hypertension | CPT/HCPCS: 99212 ==

== ENCOUNTER 2023-11-08 12:33 | Outpatient (REF) | payer OTHER, SELFPAY ==
[2023-11-08 14:13] LABS: Anion Gap 12 (12-20); Blood Urea Nitrogen 13 mg/dL (9-16); Calcium 9.3 mg/dL (8.4-10.2); Carbon Dioxide 26 mmol/L (22-29); Chloride 109 mmol/L (96-108); Cholesterol 169 mg/dL (<200); Estimated Glomerular Filt Rate > 60; Glucose Random 85 mg/dL (60-115); HDL Cholesterol 62 mg/dL (>40); LDL Cholesterol Calculated 82 mg/dL (<100); Potassium 4.3 mmol/L (3.3-5.1); Sodium 143 mmol/L (135-145); Triglycerides 128 mg/dL (<150)
[2023-11-08 14:26] LABS: Vitamin D 25-OH Total 20.4 ng/mL (>30)
[2023-11-08 18:57] LABS: Reflex LDLD? No
== END 2023-11-08 12:34 | disposition home or self-care (01) ==
LOC: HO.LAB 12:33
PROVIDERS: PCP Internal Medicine; Visit Provider Internal Medicine
DX: E66.01 Morbid (severe) obesity due to excess calories (principal); I10 Essential (primary) hypertension; K21.9 Gastro-esophageal reflux disease without esophagitis; K58.2 Mixed irritable bowel syndrome
CPT/HCPCS: 36415; 80048; 80061; 82306; 84443; 99212

== ENCOUNTER 2023-11-08 13:01 | Outpatient (AMB) | payer OTHER, SELFPAY ==
--- NOTE | 2023-11-08 13:03 | A.OFFVIS_ITS ---
Intake Vital Signs 11/08/23 13:05 Height 4 ft 11 in Weight 151 lb BMI 30.5 BP 150/63 H Blood Pressure Location Lt brachial Position Sitting Pulse 69 Pulse Source Monitor Intake Visit Reasons: 2 week follow up IBS Intake Note: Patient states everything has been the same since the last office visit. She is taking her medications and its helping. 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 Accompanied by: Self / Same As Patient Allergies seafood Allergy (Severe, Verified 11/21/23 09:19) Anaphylaxis vancomycin [VANCOMYCIN] Allergy (Severe, Verified 11/21/23 09:19) ANAPHYLAXIS, hives aspirin [ASPIRIN] Allergy (Intermediate, Verified 11/21/23 09:19) rash, asthma codeine [CODEINE] Allergy (Mild, Verified 11/21/23 09:19) rash egg [EGGS] Allergy (Mild, Verified 11/21/23 09:19) VOMITING peanut [PEANUTS] Allergy (Mild, Verified 11/21/23 09:19) HIVES,DIARRHEA amoxicillin [From Augmentin] Allergy (Verified 11/21/23 09:19) hives, swelling, difficulty breathing clavulanic acid [From Augmentin] Allergy (Verified 11/21/23 09:19) hives, swelling mushroom Allergy (Verified 11/21/23 09:19) Rash lactose Adverse Reaction (Intermediate, Verified 11/21/23 09:19) diarrhea HPI 2 week follow up IBS HPI Details Assessment & Plan (1) Acute diarrhea: Code(s): R19.7 - Diarrhea, unspecified (2) GERD (gastroesophageal reflux diseas e): Code(s): K21.9 - Gastro-esophageal reflux disease without esophagitis (3) Irritable bowel syndrome with both c onstipation and diarrhea: Comment: now more bile salt diarrhea since she is status post cholecystectomy Code(s): K58.2 - Mixed irritable bowel syndrome (4) HTN (hypertension), benign: Code(s): I10 - Essential (primary) hypertension Plan She was taking the Carafate however she found that it constipated her taking 3 a day or even 1 a day. Her nausea is improved, and she is now having soft stools about 3 times a week which is also an improvement. She continues to have pain in the RUQ and when I feel the pain I have little lumps. This is relieved with he r bentyl. She also will have severe burping that is also helped with Bentyl. She also has bloating when she does anything that involves physical activity r/t bending/twisting her torso like sweeping or mopping. This has been since her cholecystectomy. She is also c/o her BP being high, BUT WITH DISCUSSION SHE says she stopped her cardizem r/t LE edema and she could not put on her shoes. This is the most likely reason for her HTN. She will be seeing a new PCP soon in November. The last PCP told her to continue the cardizem and added chlorthalidone (a possible pancreatitis trigger) but she is not taking these. Despite her asthma, I think a trial of SOMETHING to keep her BP controlled is warranted to protect her overal risk for [place] and CVA. I will give a low dose 25mg dose of metoprolol, since she has a hx of tachycardia. Will proceed to other agents until she can get a new PCP if this is not tolerated. I suggest that she try taking half a tablet of Carafate a day since I think she has an element of bile gastritis play. Hopefully we can play the symptoms down and not cause her constipation. ROV 2 weeks. Medications: New metoprolol tartrat e 25 mg PO DAILY 30 tabs 3RF I10 - Essential (p rimary) hypertensi on Refilled omeprazole 40 mg PO BID 30 d ays 60 caps 6RF K21.9 - Gastro-eso phageal reflux dis ease without esoph agitis dicyclomine 20 mg PO QID 30 d ays 120 tabs 6RF K58.2 - Mixed irri table bowel syndro me, R10.9 - Unspec ified abdominal pa in Patient Instructions: Yoselin Rodríguez 1.? Stop the diltazem and start the metoprolol, if you have any asthma problems just stop the metoprolol. 2.? Please take ? tablet of carafat e daily and dicyclomine one in the morning and once at night. 3.? Continue your omeprazole twice a day. ROV 2 weeks. TODAY'S VISIT She says that her GI problems are controlled now that she takes her medication as prescribed. She did better with the foot swelling after stopping the cardizem, but then had more asthma problems with the metoprolol, so she stopped it as I directed. She also had some lip swelling and itch hardying. She will see her new PCP next month and she continues for now on her lisinopril. Her current GI regimen now consists of dicyclomine 20 mg 4 times a day, omeprazole 40 mg twice a day, sucralfate 3 g a day. ROV 6 mos. PFSH Medical History (Updated 11/21/23 @ 10:56 by Iqra Lawrence MD) Pulmonary embolism Pulmonary embolism Vaginal itching Hx of human papillomavirus infection Candidiasis of mouth and esophagus Abdominal cramping Pneumonia Bile salt-induced diarrhea History of pilonidal cyst Abdominal bloating Gastritis COVID-19 IBS (irritable bowel syndrome) Hypertension Pre-eclampsia Irritable bowel syndrome with both constipation and diarrhea Gallstones Surgical History (Updated 11/21/23 @ 10:51 by Iqra Lawrence MD) H/O cervical polypectomy Hx of esophagogastroduodenoscopy H/O colonoscopy History of surgical removal of pilonidal cyst S/P tonsillectomy History of section History of cholecystectomy Family History (Updated 11/21/23 @ 09:28 by Iqra Lawrence MD) Father Heart attack GERD (gastroesophageal reflux disease) Peptic ulcer disease Mother CHF (congestive heart failure) Afib Diverticulitis History of bowel resection Hypothyroid COVID-19 Maternal Aunt Diabetes Maternal Uncle Cancer Maternal Grandmother Cancer Brother Mental health disorder Social History Household Members: Spouse Housing: Apartment Are you a primary child care centre manager to a significant other at home: No Do you presently have visiting nurse or other home services: Yes (phone visits) Alcohol intake: former Patient Tobacco Use Status: Never used Tobacco e-Cigarette/Vaping Use: Never Used Second Hand Smoke Exposure: No service: No Current occupational status: retired Cognitive needs: No Hearing needs: No Vision needs: No Female Reproductive History Menstrual Age of Menarche: 10 Review of Systems Const Denies fatigue, Denies fever(s), Denies night sweats, Denies poor appetite and Denies weight loss ENT Reports Normal hearing present, Denies dental pain, Denies dysphagia, Denies hearing loss, Denies mouth pain, Denies odynophagia, Denies throat swelling, Denies tongue swelling and Reports other (Dentition adequate) Card Reports no additional complaints Resp Reports no additional complaints GI Details: Denies abdominal pain, Denies melena, Denies bloating, Denies hematochezia, Denies constipation, Denies GI cramping, Denies dysphagia, Denies excessive flatus, Denies early satiety, Reports heartburn, Reports diarrhea, Reports nausea, Denies odynophagia, Denies vomiting and Denies hematemesis Skin/Breast Denies pruritus, Denies lesions, Denies rash and Denies jaundice Neuro Reports Normal hearing present and Denies Abnormal speech present Endo Denies fatigue Aller/Immun Denies throat swelling and Denies tongue swelling Physical Exam Vital Signs: Last Vital Signs Pulse 69 11/08/23 13:05 BP 150/63 H 11/08/23 13:05 BMI result Body Mass Index 30.5 Const General: cooperative, no acute distress, well developed and well groomed Nutritional Appearance: well nourished and obese Orientation/consciousness: oriented to person, oriented to place and oriented to time Limitations: No language barrier HEENT Head: Yes normocephalic and Yes atraumatic Eyes General: appearance normal, both eyes and all related structures Pupils: Equal, round and reactive pupils present Neck Neck: Yes normal visual inspection and Yes no lymphadenopathy Thyroid: Thyroid normal Resp Effort & Inspection: normal respiratory effort and able to speak in complete sentences Auscultation: clear to auscultation bilaterally Cardio Rate: regular rate Rhythm: regular rhythm Heart sounds: Normal, physiologic split S2 sound present Peripheral pulses: radial pulses present and posterior tibial pulses present GI Inspection: No distended, No Abdominal panniculus present and Yes obesity Palpation (GI): Soft to palpation, nontender, no guarding, not rigid and No hepatosplenomegaly present Percussion: Yes normal to percussion Auscultation: normal bowel sounds Rectal Exam - Female: deferred Skin General skin exam: no rashes or lesions noted, turgor normal, skin not dry, no jaundice, No spider nevi and no striae Rashes: no rashes Nails: normal Neuro General: oriented to person, oriented to place and oriented to time Cranial nerves: Yes Equal, round and reactive pupils present and Yes Normal hearing present Speech: No Abnormal speech present Extrem General: Yes normal to inspection, No clubbing, No cyanosis and No edema Psych Appearance: grossly normal and well kempt Mental Status: mental status grossly normal Speech and movement: Normal speech and movement present Affect: normal affect Attitude: cooperative Thought process: Normal thought process present and not confabulating Thought content: Normal thought content present Insight: Fair insight present (Psych) Judgement: Fair judgement present (Psych) Assessment & Plan Assessment & Plan (1) Acute diarrhea: Code(s): R19.7 - Diarrhea, unspecified (2) GERD (gastroesophageal reflux disease): Code(s): K21.9 - Gastro-esophageal reflux disease without esophagitis (3) Irritable bowel syndrome with both constipation and diarrhea: Comment: now more bile salt diarrhea since she is status post cholecystectomy Code(s): K58.2 - Mixed irritable bowel syndrome Plan She says that her GI problems are controlled now that she takes her medication as prescribed. She did better with the foot swelling after stopping the cardizem, but then had more asthma problems with the metoprolol, so she stopped it as I directed. She also had some lip swelling and itching. She will see her new PCP next month and she continues for now on her lisinopril. Her current GI regimen now consists of dicyclomine 20 mg 4 times a day, omeprazole 40 mg twice a day, sucralfate 3 g a day. ROV 6 mos. Coding Level of Care Code Est Pt Level 3 (37638) Diagnoses Acute diarrhea R19.7 GERD (gastroesophageal reflux disease) K21.9 Irritable bowel syndrome with both constipation and diarrhea K58.2
[2023-11-08 13:05] VITALS: BP 150/63; PULSE 69; BMI 30.5
== END 2023-11-08 13:27 | disposition home or self-care (01) ==
PROVIDERS: PCP Internal Medicine; Visit Provider Nurse Practitioner
DX: R19.7 Diarrhea, unspecified (principal); K21.9 Gastro-esophageal reflux disease without esophagitis; K58.2 Mixed irritable bowel syndrome
CPT/HCPCS: 99213

== ENCOUNTER 2023-11-21 08:48 | Outpatient (AMB) | payer OTHER, SELFPAY ==
--- NOTE | 2023-11-21 08:52 | A.OFFPC_ITS ---
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 Accompanied by: Self / Same As Patient Allergies seafood Allergy (Severe, Verified 11/21/23 09:19) Anaphylaxis vancomycin [VANCOMYCIN] Allergy (Severe, Verified 11/21/23 09:19) ANAPHYLAXIS, hives aspirin [ASPIRIN] Allergy (Intermediate, Verified 11/21/23 09:19) rash, asthma codeine [CODEINE] Allergy (Mild, Verified 11/21/23 09:19) rash egg [EGGS] Allergy (Mild, Verified 11/21/23 09:19) VOMITING peanut [PEANUTS] Allergy (Mild, Verified 11/21/23 09:19) HIVES,DIARRHEA amoxicillin [From Augmentin] Allergy (Verified 11/21/23 09:19) hives, swelling, difficulty breathing clavulanic acid [From Augmentin] Allergy (Verified 11/21/23 09:19) hives, swelling mushroom Allergy (Verified 11/21/23 09:19) Rash lactose Adverse Reaction (Intermediate, Verified 11/21/23 09:19) diarrhea Medication List - Last Reconciled 11/21/23 by Iqra Lawrence MD acetaminophen (Tylenol Extra Strength) 500 mg PO Q6H PRN albuterol sulfate 90 mcg/actuation 90 mcg inhalation DAILY albuterol sulfate 2.5 mg inhalation TID PRN calcium carbonate 600 mg PO BID dicyclomine 20 mg PO QID 30 days dupilumab (Dupixent) 200 mg (1.14 mL) subcut Q2W ergocalciferol (vitamin D2) 1,250 mcg PO QWEEK estradiol 0.01%(0.1mg/gram) 1 g vaginal DAILY fluoxetine 20 mg PO DAILY hydroxyzine HCl 10 - 20 mg PO Q6H PRN lisinopril 40 mg PO DAILY lorazepam 1 mg PO DAILY PRN omeprazole 40 mg PO BID 30 days ondansetron 4 mg PO Q8H PRN 7 days sucralfate 3 grams (3 x 1 gram) PO DAILY sumatriptan succinate 50 mg PO DAILY PRN Symbicort 160-4.5 mcg/actuation (budesonide-formoterol) 2 puffs PO BID NS trazodone 100 mg PO DAILY Tobacco use date assessed: 11/21/23 Dental Screening Dental Screen Date: 11/21/23 Did you have a dental visit in the last 12 months?: No Did you have a dental problem in the last 6 months where you did not have access to dental care?: No Was dental information given to patient?: Patient has dentist HPI HPI Comments History of Present Illness Details This is a 63-year-old female with hypertension, osteoporosis, GERD, COPD and mild major depression that comes today to establish care. Blood pressure still elevated even though she is compliant with lisinopril and I will add amlodipine. Blood pressure will be recheck in 3 weeks by nurse navigator. Denies any chest pain or shortness of breath. Had a bone density 2022 showing osteoporosis and she said she has had this diagnosis for over 10 years. She was on alendronate once a week for 1 year only and discontinue it because she moved from [place] to [facility]. I will restart her on alendronate in which she had no significant side effects and refer her to Rheumatology. GERD stable with medications. On long-acting inhaler for her COPD and this is follow by pul monology. On SSRIs for her depression which is follow by Psychiatry. Compliant with medications. Last mammogram was 2022. Last colonoscopy was 2017. [facility] Medical History (Updated 11/21/23 @ 10:56 by Iqra Lawrence MD) Pulmonary embolism Pulmonary embolism Vaginal itching Hx of human papillomavirus infection Candidiasis of mouth and esophagus Abdominal cramping Pneumonia Bile salt-induced diarrhea History of pilonidal cyst Abdominal bloating Gastritis COVID-19 IBS (irritable bowel syndrome) Hypertension Pre-eclampsia Irritable bowel syndrome with both constipation and diarrhea Gallstones Surgical History (Updated 11/21/23 @ 10:51 by Iqra Lawrence MD) H/O cervical polypectomy Hx of esophagogastroduodenoscopy H/O colonoscopy History of surgical removal of pilonidal cyst S/P tonsillectomy History of section History of cholecystectomy Family History (Updated 11/21/23 @ 09:28 by Iqra Lawrence MD) Father Heart attack GERD (gastroesophageal reflux disease) Peptic ulcer disease Mother CHF (congestive heart failure) Afib Diverticulitis History of bowel resection Hypothyroid COVID-19 Maternal Aunt Diabetes Maternal Uncle Cancer Maternal Grandmother Cancer Brother Mental health disorder Social History Household Members: Spouse Housing: Apartment Are you a primary healthcare project manager to a significant other at home: No Do you presently have visiting nurse or other home services: Yes (phone visits) Alcohol intake: former Patient Tobacco Use Status: Never used Tobacco e-Cigarette/Vaping Use: Never Used Second Hand Smoke Exposure: No service: No Current occupational status: retired Cognitive needs: No Hearing needs: No Vision needs: No Female Reproductive History Menstrual Age of Menarche: 10 Questionnaire PHQ-9 Over the last 2 weeks, how often have you been bothered by any of the following problems? 1. Little interest or pleasure in doing things: several days 2. Feeling down, depressed, or hopeless: several days 3. Trouble falling or staying asleep, or sleeping too much: nearly every day 4. Feeling tired or having little energy: nearly every day 5. Poor appetite or overeating: several days 6. Feeling bad about yourself - or that you are a failure or have let yourself or your family down: not at all 7. Trouble concentrating on things, such as reading the newspaper or watching television: nearly every day 8. Moving or speaking so slowly that other people could have noticed. Or the opposite - being so fidgety or restless that you have been moving around a lot more than usual: several days 9. Thoughts that you would be better off or of hurting yourself in some way: not at all Total score: 13 Depression Screening Interpretation: Positive Depression Screening Follow-up: Existing condition, In treatment and Community Mental Health Worker F/U Depression Screening Done: Yes 61640 - PHQ-9 Billing: Yes Source: Developed by Drs. Mehran Win, Maddy Rapp, Toni Dorantes and colleagues, with an educational cody from [employer]. Thrive Questionnaire Date Thrive assessed: 11/21/23 I am a: Patient What is your living situation today?: I have a steady place to live Within the past 12 months, did the food you bought not last and you didn't have the money to get more?: Never true Within the past 12 months, did you worry whether your food would run out before you got money to buy more?: Never true Do you have trouble paying for medicines?: No Do you have trouble getting transportation to medical appointments?: No Do you have trouble paying your heating and electricity bill?: No Do you have trouble taking care of your child, family member or friend?: No Do you have trouble with day-to-day activities such as bathing, preparing meals, shopping, managing finances, etc.?: No Are you currently unemployed and looking for a job?: No Are you interested in more education?: No Please select the resources that you would like help with: None Currently or been in a relationship where the following occur: no concerns reported THRIVE Score: 0 AUDIT C Alcohol Use Questionnaire (AUDIT-C) 1. How often do you have a drink containing alcohol?: Never Total Score: 0 JESSICA-7 AMB Questionnaire JESSICA-7 Date JESSICA - 7 assessed: 11/21/23 Feeling nervous, anxious, or on edge: 1 = Several days Not being able to stop or control worryin = Several days Worrying too much about different things: 3 = Nearly every day Trouble relaxin = Several days Being so restless that it is hard to sit still: 1 = Several days Becoming easily annoyed or irritable: 0 = Not at all Feeling afraid as if something awful might happen: 1 = Several days Total JESSICA-7 score (0-4 normal; 5-9 mild; 10-14 moderate; 15-21 severe): 8 Source: Developed by Drs. Mehran Win, Maddy Rapp, Toni Dorantes and colleagues, with an educational cody from [employer]. JESSICA-7 Assessment Billing JESSICA-7 Assessment Tool: JESSICA-7 Assessment 04195 Review of Systems Const All systems reviewed & are unremarkable except as noted in HPI and below Eyes Reports no additional complaints, Denies change in vision and Denies other visual disturbances Card Denies chest pain at rest, Denies chest pain with activity, Denies edema, Denies irregular heart rhythm, Denies claudication, Denies dyspnea, Denies dyspnea on exertion, Denies orthopnea, Denies paroxysmal nocturnal dyspnea and Denies slow heart rate Resp Denies cough, Denies dyspnea and Denies dyspnea on exertion GI Denies abdominal pain, Denies change in bowel habits, Denies excessive flatus, Denies nausea and Denies vomiting Denies urinary incontinence, Denies urinary hesitancy and Denies urinary urgency Musc Denies abnormal gait, Denies atrophy, Denies deformity and Denies limited range of motion Skin/Breast Denies bleeding lesions, Denies changing lesions and Denies rash Neuro Denies abnormal gait and Denies lack of coordination Physical exam (Primary Care) Vital Signs: Last Vital Signs BP 160/70 H 11/21/23 08:53 BMI result Body Mass Index 30.9 Tobacco/Smoking Status: Tobacco use Status Tobacco use date assessed 11/21/23 11/21/23 09:04 Patient Tobacco Use Status Never used Tobacco 11/21/23 09:04 e-Cigarette/Vaping Use Never Used 11/21/23 09:04 PHQ-9: PHQ-9 Score PHQ-9: Total score 13 11/21/23 09:29 Depression Screening Interpretation: Positive Depression Screening Follow-up: Existing condition, In treatment and Community Mental Health Worker F/U Thrive Assessment: Date of Thrive Assessment Date Thrive assessed 11/21/23 11/21/23 09:04 Currently or been in a relationship where the following occur: no concerns repo rted Eyes General: appearance normal, both eyes and all related structures Eyelids: Yes eyelids normal Conjunctivae: conjunctivae normal Neck Neck: Yes normal visual inspection and Yes supple Resp Effort & Inspection: normal respiratory effort Auscultation: clear to auscultation bilaterally Cardio Jugular venous distension: no JVD Rate: regular rate Rhythm: regular rhythm Heart sounds: S1 normal heart sound present and S2 normal heart sound present Extrem General: Yes full ROM Psych Appearance: grossly normal Assessment and Plan Assessment & Plan (1) HTN (hypertension), benign: Code(s): I10 - Essential (primary) hypertension (2) Osteoporosis: Code(s): M81.0 - Age-related osteoporosis without current pathological fracture Qualifiers: Osteoporosis type: unspecified Presence of current pathological fracture: without current pathological fracture Qualified Code(s): M81.0 - Age- related osteoporosis without current pathological fracture Plan: Restart alendronate. Referred to rheumatology. (3) GERD (gastroesophageal reflux disease): Code(s): K21.9 - Gastro-esophageal reflux disease without esophagitis Qualifiers: Esophagitis presence: esophagitis presence not specified Qualified Code(s): K21.9 - Gastro-esophageal reflux disease without esophagitis Plan: Continue PPIs. (4) COPD (chronic obstructive pulmonary disease): Code(s): J44.9 - Chronic obstructive pulmonary disease, unspecified Qualifiers: COPD type: unspecified COPD Qualified Code(s): J44.9 - Chronic obstructive pulmonary disease, unspecified Plan: Continue long-acting inhaler. Use rescue inhaler as needed. Follow-up with pulmonology. (5) Mild major depression: Comment: Follows with psychiatry Code(s): F32.0 - Major depressive disorder, single episode, mild Plan: Continue SSRIs. Follow-up with psychiatry. Orders: Referrals Rheumatology Referral M81.0 - Age-related osteoporosis without current pathological fracture Medications: New amlodipine 5 mg PO DAILY 90 days 90 tabs 1RF I10 - Essential (primary) hypertension alendronate 70 mg PO QWEEK 90 days 13 tabs 2RF M81.0 - Age-related osteoporosis without current pathological fracture cyclobenzaprine 5 mg PO BEDTIME 7 days PRN 7 tabs 1RF muscle spasm Coding Level of Care Code Est Pt Level 4 (86513) Diagnoses HTN (hypertension), benign I10 Osteoporosis without current pathological fracture, unspecified osteoporosis type M81.0 Osteoporosis type: unspecified Presence of current pathological fracture: without current pathological fracture Gastroesophageal reflux disease, unspecified whether esophagitis present K21.9 Esophagitis presence: esophagitis presence not specified Chronic obstructive pulmonary disease, unspecified COPD type J44.9 COPD type: unspecified COPD Mild major depression F32.0 Additional Codes JESSICA-7 Assessment Billing - JESSICA-7 Assessment Tool: JESSICA-7 Assessment 36758 ([id number]) Time Spent (min) 26
[2023-11-21 08:53] VITALS: BP 160/70; BMI 30.9
[2023-11-21 10:50] VITALS: BP 160/80
== END 2023-11-21 09:41 | disposition home or self-care (01) ==
PROVIDERS: PCP Internal Medicine; Visit Provider Internal Medicine
DX: I10 Essential (primary) hypertension (principal); J44.9 Chronic obstructive pulmonary disease, unspecified; F32.0 Major depressive disorder, single episode, mild; M81.0 Age-related osteoporosis without current pathological fracture; K21.9 Gastro-esophageal reflux disease without esophagitis
CPT/HCPCS: 96127; 99214

== ENCOUNTER 2023-12-25 13:09 | Outpatient (AMB) | payer OTHER, SELFPAY ==
[2023-12-25 13:16] VITALS: BP 148/80; PULSE 65; O2SAT 100; BMI 30.9
--- NOTE | 2023-12-25 13:16 | MHC.OFFVIS ---
Intake Vital Signs 12/25/23 13:16 Height 4 ft 10.74 in Weight 151 lb 10.848 oz BMI 30.9 BP 148/80 H Blood Pressure Location Rt brachial Position Sitting Pulse 65 Pulse Source Pulse Oximeter Pulse Oximetry (%) 100 Oxygen Delivery Method Room Air Intake Visit Reasons: osteoporosis/lm Intake Note: New pt presents today for osteoporosis consult, internally referred by PCP Dr Louis. 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 Accompanied by: Self / Same As Patient Allergies seafood Allergy (Severe, Verified 12/25/23 13:20) Anaphylaxis vancomycin [VANCOMYCIN] Allergy (Severe, Verified 12/25/23 13:20) ANAPHYLAXIS, hives aspirin [ASPIRIN] Allergy (Intermediate, Verified 12/25/23 13:20) rash, asthma codeine [CODEINE] Allergy (Mild, Verified 12/25/23 13:20) rash egg [EGGS] Allergy (Mild, Verified 12/25/23 13:20) VOMITING peanut [PEANUTS] Allergy (Mild, Verified 12/25/23 13:20) HIVES,DIARRHEA amoxicillin [From Augmentin] Allergy (Verified 12/25/23 13:20) hives, swelling, difficulty breathing clavulanic acid [From Augmentin] Allergy (Verified 12/25/23 13:20) hives, swelling mushroom Allergy (Verified 12/25/23 13:20) Rash lactose Adverse Reaction (Intermediate, Verified 12/25/23 13:20) diarrhea Medication List - Last Reconciled 12/25/23 by Maryann Joseph MD acetaminophen (Tylenol Extra Strength) 500 mg PO Q6H PRN albuterol sulfate 90 mcg/actuation 90 mcg inhalation DAILY albuterol sulfate 2.5 mg inhalation TID PRN alendronate 70 mg PO QWEEK 90 days amlodipine 5 mg PO DAILY 90 days calcium carbonate 600 mg PO BID cyclobenzaprine 5 mg PO BEDTIME PRN 7 days dicyclomine 20 mg PO QID 30 days dupilumab (Dupixent) 200 mg (1.14 mL) subcut Q2W ergocalciferol (vitamin D2) 1,250 mcg PO QWEEK estradiol 0.01%(0.1mg/gram) 1 g vaginal DAILY fluoxetine 20 mg PO DAILY hydroxyzine HCl 10 - 20 mg PO Q6H PRN lisinopril 40 mg PO DAILY lorazepam 1 mg PO DAILY PRN omeprazole 40 mg PO BID 30 days ondansetron 4 mg PO Q8H PRN 7 days sucralfate 3 grams (3 x 1 gram) PO DAILY sumatriptan succinate 50 mg PO DAILY PRN Symbicort 160-4.5 mcg/actuation (budesonide-formoterol) 2 puffs PO BID NS trazodone 100 mg PO DAILY HPI HPI Comments History of Present Illness Details This is a 63-year-old female who is referred by her PCP for evaluation of osteoporosis. Patient states that since traveled she would need repeated courses of prednisone to control her asthma. Until recently she was started on Dupixent with reduction in dependence on steroids. She was started on alendronate by her PCP about a month ago. He states that it causes dizziness. She thought that it is taken once a month. She states that in her 30s, she was having back pain and was evaluated by lifestyle block farmer and was told that she has lupus she was told that the treatments would consist of prednisone. Patient declined. She does not recall any formal assessment by a lifestyle block farmer since then. She states that she can see intermittent joint pains. Intermittently she would have pain in her ribs on the right and posteriorly. Associated with swelling. In 2019 she had unprovoked PE and was found to have positive lupus anticoagulant. She was on rivaroxaban for some time. She is no longer on rivaroxaban. She is unaware of any family history of an autoimmune rheumatic disease [facility] Medical History (Updated 12/25/23 @ 13:51 by Maryann Joseph MD) Pulmonary embolism Pulmonary embolism Vaginal itching Hx of human papillomavirus infection Candidiasis of mouth and esophagus Abdominal cramping Pneumonia Bile salt-induced diarrhea History of pilonidal cyst Abdominal bloating Gastritis COVID-19 IBS (irritable bowel syndrome) Hypertension Pre-eclampsia Irritable bowel syndrome with both constipation and diarrhea Gallstones Surgical History H/O cervical polypectomy Hx of esophagogastroduodenoscopy H/O colonoscopy History of surgical removal of pilonidal cyst S/P tonsillectomy History of section History of cholecystectomy Family History Father Heart attack GERD (gastroesophageal reflux disease) Peptic ulcer disease Mother CHF (congestive heart failure) Afib Diverticulitis History of bowel resection Hypothyroid COVID-19 Maternal Aunt Diabetes Maternal Uncle Cancer Maternal Grandmother Cancer Brother Mental health disorder Social History Household Members: Spouse Housing: Apartment Are you a primary hospice patient care secretary to a significant other at home: No Do you presently have visiting nurse or other home services: Yes (phone visits) Alcohol intake: former Patient Tobacco Use Status: Never used Tobacco e-Cigarette/Vaping Use: Never Used Second Hand Smoke Exposure: No service: No Current occupational status: retired Cognitive needs: No Hearing needs: No Vision needs: No Female Reproductive History Menstrual Age of Menarche: 10 Review of Systems Const Reports fatigue, Reports headache(s), Reports weakness and Reports weight loss Eyes Reports dry eyes and Reports itchy eyes ENT Reports dysphagia, Reports dizziness, Reports dry mouth, Reports headache(s) and Reports tinnitus Card Reports chest pain and Reports dyspnea Resp Reports dyspnea GI Reports constipation, Reports dysphagia, Reports heartburn, Reports diarrhea and Reports nausea Reports vaginal dryness Musc Reports back pain, Reports arthralgias, Reports joint swelling and Reports stiffness Skin/Breast Reports pruritus, Reports lesions, Reports rash, Reports skin swelling and Reports unusual bruising Neuro Reports dizziness, Reports headache(s), Reports memory loss and Reports weakness Psych Reports abnormal sleep pattern, Reports anxiety and Reports memory loss Endo Reports fatigue and Reports polydipsia Aller/Immun Reports itchy eyes Physical Exam Vital Signs: Last Vital Signs Pulse 65 12/25/23 13:16 BP 148/80 H 12/25/23 13:16 Pulse Ox 100 12/25/23 13:16 Oxygen Delivery Method Room Air 12/25/23 13:16 BMI result Body Mass Index 30.9 Const General: cooperative, healthy appearing and comfortable Nutritional Appearance: obese and overweight Orientation/consciousness: patient oriented x3 Limitations: no limitations HEENT Head: Yes normocephalic and Yes atraumatic Mouth: moist mucous membranes Resp Effort & Inspection: normal respiratory effort and able to speak in complete sentences Auscultation: clear to auscultation bilaterally Cardio Rate: regular rate Rhythm: regular rhythm Skin General skin exam: no rashes or lesions noted Neuro General: patient oriented x3 Extrem Other: No active synovitis Reduced range of motion of right shoulder Positive empty can test on the right Nailfold capillaroscopy shows few parallel hemorrhages right 3rd finger Assessment & Plan Assessment & Plan (1) Osteoporosis: Code(s): M81.0 - Age-related osteoporosis without current pathological fracture Qualifiers: Osteoporosis type: unspecified Presence of current pathological fracture: without current pathological fracture Qualified Code(s): M81.0 - Age-related osteoporosis without current pathological fracture Plan: This is a 63-year-old female who presents for evaluation of osteoporosis. Per patient she used to get repeated courses of steroids since her childhood to treat her asthma. Her asthma has been doing better for about a year since she started Dupixent. Patient is unaware of any history of fractures. DEXA in 2022 showed osteoporosis. Will order labs to evaluate for secondary causes of osteoporosis. Up in 4 weeks (2) History of pulmonary embolism: Code(s): Z86.711 - Personal history of pulmonary embolism Plan: Per patient she was tested by lifestyle block farmer in her 30s and was told that she has lupus but she did not get any treatment. Patient had an unprovoked PE in 2019, evaluated by Hematology and was found to have a positive lupus anticoagulant and started on Xarelto. She has no longer on Xarelto. Given her history of unprovoked PE and trouble history of SLE, will order comprehensive serology to screen for underlying autoimmune rheumatic disease Plan I spent 47 minutes reviewing patient's chart, evaluating patient, ordering diagnostic workup, counseling patient and documenting in the chart Orders: Orders Complete Blood Count Auto Diff Today M32.9 - Systemic lupus erythematosus, unspecified Comprehensive Met. Panel Today M32.9 - Systemic lupus erythematosus, unspecified C Reactive Protein Today M32.9 - Systemic lupus erythematosus, unspecified Immunofixation Pnl, Serum Today M32.9 - Systemic lupus erythematosus, unspecified NEHA Reflex Titer and Pattern Today M32.9 - Systemic lupus erythematosus, unspecified Anti Extractable Nuclear Ag Today M32.9 - Systemic lupus erythematosus, unspecified Anti DNA DS Antibody Today M32.9 - Systemic lupus erythematosus, unspecified DNA Double Stranded-Crithidia Today M32.9 - Systemic lupus erythematosus, unspecified Protein Creatinine Ratio, Ur Today M32.9 - Systemic lupus erythematosus, unspecified Sjogren's Antibodies Today M32.9 - Systemic lupus erythematosus, unspecified Rheumatoid Factor Today M25.50 - Pain in unspecified joint Cardiolipin Antibodies Today D68.62 - Lupus anticoagulant syndrome Phosphorus Today M81.0 - Age-related osteoporosis without current pathological fracture TSH reflex Free T4 Today M81.0 - Age-related osteoporosis without current pathological fracture Vitamin D 25-OH Total Today E55.9 - Vitamin D deficiency, unspecified Magnesium Today M81.0 - Age-related osteoporosis without current pathological fracture Erythrocyte Sedimentation Rate Today M32.9 - Systemic lupus erythematosus, unspecified Hepatitis A,B,C Profile Today Z11.59 - Encounter for screening for other viral diseases Complement C3 Today M32.9 - Systemic lupus erythematosus, unspecified Complement C4 Today M32.9 - Systemic lupus erythematosus, unspecified UA w Microscopic Today M32.9 - Systemic lupus erythematosus, unspecified Cyclic Citrullinated Peptide Today M25.50 - Pain in unspecified joint Beta-2 Glycoprotein Antibody Today D68.62 - Lupus anticoagulant syndrome Lupus Anticoagulant Panel Today D68.62 - Lupus anticoagulant syndrome Parathyroid Hormone Intact Today M81.0 - Age-related osteoporosis without current pathological fracture Coding Level of Care Code New Pt Level 4 (96170) Diagnoses Osteoporosis without current pathological fracture, unspecified osteoporosis type M81.0 Osteoporosis type: unspecified Presence of current pathological fracture: without current pathological fracture History of pulmonary embolism Z86.711
== END 2023-12-25 13:45 | disposition home or self-care (01) ==
PROVIDERS: PCP Internal Medicine; Visit Provider Student in an Organized Health Care Education/Training Program
DX: M81.0 Age-related osteoporosis without current pathological fracture (principal); Z86.711 Personal history of pulmonary embolism
CPT/HCPCS: 99204

== ENCOUNTER 2023-12-25 13:09 | Outpatient (REF) | payer OTHER, SELFPAY ==
[2023-12-25 14:20] LABS: MANUAL DIFF FLAG NO
[2023-12-25 15:38] LABS: Basophils Percent Auto 0.7 % (0-2); Eosinophils Absolute Auto 0.1 X10*3/uL (0.0-0.4); Eosinophils Percent Auto 1.3 % (0-4); Hematocrit 39.6 % (37.0-47.0); Hemoglobin 13.4 g/dl (12.0-16.0); Imm Gran Abs Auto 0.01 X10*3/uL (0.00-0.03); Imm Gran Pct Auto 0.2 % (0.0-0.4); Lymphocytes Absolute Auto 1.4 X10*3/uL (1.2-4.9); Lymphocytes Percent Auto 30.8 % (20-40); Mean Corpuscular HGB Conc 33.8 g/dl (31.0-35.0); Mean Corpuscular Hemoglobin 28.1 pg (27.0-33.0); Mean Platelet Volume 11.4 fL (9.4-12.3); Monocytes Absolute Auto 0.3 X10*3/uL (0.1-1.2); Monocytes Percent Auto 5.6 % (2-11); Neutrophils Absolute Auto 2.8 x10*3/uL (2.0-8.3); Neutrophils Percent Auto 61.4 % (45-73); Platelet Count 220 X10*3/uL (160-400); Red Blood Count 4.77 X10*6/uL (4.20-5.50); Red Cell Distribution Width 11.9 % (11.0-16.0); White Blood Count 4.5 X10*3/uL (4.8-10.8)
[2023-12-25 15:42] LABS: Appearance Urine Clear; Color Urine Yellow; Glucose Urine UA Negative (Negative); Leukocyte Esterase Urine Negative (Negative); Nitrite Urine Negative (Negative); PH 8.5 (5.0-9.0); Urine Blood Negative (Negative); Urine Ketones Negative (Negative); Urine Protein Negative (Neg-Trace)
[2023-12-25 15:46] LABS: Bacteria Urine None Seen (None Seen); Hyaline Casts Urine 0-2 /LPF (0-2); RBC Urine 0-2 /HPF (0-2); WBC Urine 0-5 /HPF (0-5)
[2023-12-25 16:10] LABS: Alanine Aminotransferase 37 U/L (0-31); Albumin Level 4.2 g/dL (3.5-5.0); Alkaline Phosphatase 153 U/L (39-117); Anion Gap 14 (12-20); Aspartate Amino Transferase 36 U/L (5-31); Bilirubin Total 0.5 mg/dL (0.0-1.0); Blood Urea Nitrogen 10 mg/dL (9-16); C Reactive Protein 0.92 mg/dL (< or = 0.50); Calcium 9.6 mg/dL (8.4-10.2); Carbon Dioxide 27 mmol/L (22-29); Chloride 105 mmol/L (96-108); Estimated Glomerular Filt Rate > 60; Glucose Random 81 mg/dL (60-115); Phosphorus 2.7 mg/dL (2.7-4.5); Potassium 4.1 mmol/L (3.3-5.1); Sodium 142 mmol/L (135-145); Total Protein 7.7 g/dL (6.5-8.0)
[2023-12-25 16:11] LABS: Parathyroid Hormone Intact 76.1 pg/mL (8.7-77.1)
[2023-12-25 16:26] LABS: Erythrocyte Sedimentation Rate 17 MM/HR (0-20)
[2023-12-25 16:27] LABS: TSH reflex Free T4 1.87 uIU/mL (0.32-4.0); Vitamin D 25-OH Total 27.7 ng/mL (>30)
[2023-12-25 18:58] LABS: Creatinine Urine 49.65 mg/dL; Total Protein Urine Random < 7 mg/dL (<12)
[2023-12-25 19:39] LABS: Rheumatoid Factor < 13.0 IU/mL (<15.0)
[2023-12-26 08:38] LABS: HBS Num1 0.23 mIU/mL (0-7.99); HBc Num1 0.17 S/CO (0.00-0.79); Hepatitis A Antibody IgM 0.13 Index (0-0.79); Hepatitis B Core Antibody Nonreactive (Nonreactive); Hepatitis B Surface Antigen Negative (Negative); ~HepC Num1 0.11 S/CO (0.00-0.79); ~Hepatitis A Antibody IgM Nonreactive (Nonreactive); ~Hepatitis B Surface Antibody NONREACTIVE (Nonreactive); ~Hepatitis C Antibody Nonreactive (Nonreactive)
[2023-12-26 19:43] LABS: Cardiolipin IgG Ab <2.0 GPL-U/mL; Cardiolipin IgM Ab <2.0 MPL-U/mL
[2023-12-27 09:28] LABS: Complement C3 132 mg/dL (83-193)
[2023-12-27 11:43] LABS: IgA 316 mg/dL (70-320); IgG 947 mg/dL (600-1540); IgM 112 mg/dL (50-300)
[2023-12-27 13:59] LABS: Cyclic Citrullinated Peptide <16 UNITS
[2023-12-27 14:59] LABS: Anti DNA DS Antibody <1 IU/mL; Antibody to SS-A Antigen <1.0 NEG AI (<1.0 NEG); Antibody to SS-B Antigen <1.0 NEG AI (<1.0 NEG); SM/Ribonucleoprotein Ab <1.0 NEG AI (<1.0 NEG); Smith Protein <1.0 NEG AI (<1.0 NEG)
[2023-12-27 22:08] LABS: Beta-2 Glycoprotein IgA 2.3 U/mL (<20.0); Beta-2 Glycoprotein IgG <2.0 U/mL (<20.0); Beta-2 Glycoprotein IgM 2.9 U/mL (<20.0)
[2023-12-28 12:04] LABS: ANA Pattern 3 Nuclear, Speckled; ANA Titer 2 1:40 titer; ANA Titer 3 1:40 titer; Anti Nuclear Antibody Screen POSITIVE (NEGATIVE); Anti Nuclear Antibody Titer 1:40 titer
[2023-12-28 17:59] LABS: Hexagonal Phase Neutralization Negative (Negative); PTT (LAC) Screen 45 sec (<=40)
[2023-12-29 00:08] LABS: DNAds, Crithidia Antibody Negative (Negative)
== END 2023-12-25 13:10 | disposition home or self-care (01) ==
LOC: HO.LAB 13:09
PROVIDERS: PCP Internal Medicine; Visit Provider Student in an Organized Health Care Education/Training Program
DX: Z11.59 Encounter for screening for other viral diseases (principal); M32.9 Systemic lupus erythematosus, unspecified; M25.50 Pain in unspecified joint; M81.0 Age-related osteoporosis without current pathological fracture; D68.62 Lupus anticoagulant syndrome; E55.9 Vitamin D deficiency, unspecified; Z86.711 Personal history of pulmonary embolism; Z72.89 Other problems related to lifestyle
CPT/HCPCS: 36415; 80053; 81001; 82306; 82570; 82784; 83735; 83970; 84100; 84156; 84443; 85025; 85597; 85598; 85613; 85652; 85730; 86038; 86039; 86140; 86146; 86147; 86160; 86200; 86225; 86235; 86255; 86334; 86431; 86704; 86706; 86709; 86803; 87340; 99202

== ENCOUNTER 2024-01-09 12:27 | Outpatient (REF) | payer OTHER, SELFPAY ==
[2024-01-10 14:53] LABS: Immunoglobulin G Subclass 1 437 mg/dL (382-929); Immunoglobulin G Subclass 2 355 mg/dL (241-700); Immunoglobulin G Subclass 3 52 mg/dL (22-178); Immunoglobulin G Subclass 4 28.8 mg/dL (4-86); Immunoglobulin G Total 836 mg/dL (600-1540)
== END 2024-01-09 12:28 | disposition home or self-care (01) ==
LOC: HO.LAB 12:27
PROVIDERS: PCP Internal Medicine; Visit Provider Internal Medicine Pulmonary Disease
DX: J45.40 Moderate persistent asthma, uncomplicated (principal); Z91.09 Other allergy status, other than to drugs and biological substances
CPT/HCPCS: 36415; 82784; 99212

== ENCOUNTER 2024-01-09 12:27 | Outpatient (AMB) | payer OTHER, SELFPAY ==
--- NOTE | 2024-01-09 13:09 | MHC.OFFVIS ---
Vital Signs 01/09/24 13:10 Height 4 ft 10.74 in Weight 153 lb 3.54 oz BMI 31.2 BP 142/72 H Blood Pressure Location Rt brachial Position Sitting Pulse 64 Pulse Source Doppler Pulse Oximetry (%) 100 Oxygen Delivery Method Room Air Intake Visit Reasons: post covid Allergies seafood Allergy (Severe, Verified 01/09/24 13:15) Anaphylaxis vancomycin [VANCOMYCIN] Allergy (Severe, Verified 01/09/24 13:15) ANAPHYLAXIS, hives aspirin [ASPIRIN] Allergy (Intermediate, Verified 01/09/24 13:15) rash, asthma codeine [CODEINE] Allergy (Mild, Verified 01/09/24 13:15) rash egg [EGGS] Allergy (Mild, Verified 01/09/24 13:15) VOMITING peanut [PEANUTS] Allergy (Mild, Verified 01/09/24 13:15) HIVES,DIARRHEA amoxicillin [From Augmentin] Allergy (Verified 01/09/24 13:15) hives, swelling, difficulty breathing clavulanic acid [From Augmentin] Allergy (Verified 01/09/24 13:15) hives, swelling mushroom Allergy (Verified 01/09/24 13:15) Rash lactose Adverse Reaction (Intermediate, Verified 01/09/24 13:15) diarrhea HPI HPI post covid: Details: 63-year-old lady, lifetime nonsmoker, followed for severe persistent asthma, environmental allergies, and post COVID-19 syndrome.? Patient was not able to tolerate immunologic therapy for her asthma including Fasenra and Xolair, but had good response with Dupixent. She also has had significant side effects after COVID vaccines.? She continues to use his Symbicort and albuterol MDI.? She denies any recent exacerbations. Her Respiratory symptoms are well controlled at this time. Today she does complain of exacerbation of her underlying environmental allergies. [facility] Medical History (Updated 12/25/23 @ 13:51 by Maryann Joseph MD) Pulmonary embolism Pulmonary embolism Vaginal itching Hx of human papillomavirus infection Candidiasis of mouth and esophagus Abdominal cramping Pneumonia Bile salt-induced diarrhea History of pilonidal cyst Abdominal bloating Gastritis COVID-19 IBS (irritable bowel syndrome) Hypertension Pre-eclampsia Irritable bowel syndrome with both constipation and diarrhea Gallstones Surgical History H/O cervical polypectomy Hx of esophagogastroduodenoscopy H/O colonoscopy History of surgical removal of pilonidal cyst S/P tonsillectomy History of section History of cholecystectomy Family History Father Heart attack GERD (gastroesophageal reflux disease) Peptic ulcer disease Mother CHF (congestive heart failure) Afib Diverticulitis History of bowel resection Hypothyroid COVID-19 Maternal Aunt Diabetes Maternal Uncle Cancer Maternal Grandmother Cancer Brother Mental health disorder Social History Household Members: Spouse Housing: Apartment Are you a primary skin care instructor to a significant other at home: No Do you presently have visiting nurse or other home services: Yes (phone visits) Alcohol intake: former Patient Tobacco Use Status: Never used Tobacco e-Cigarette/Vaping Use: Never Used Second Hand Smoke Exposure: No service: No Current occupational status: retired Cognitive needs: No Hearing needs: No Vision needs: No Female Reproductive History Menstrual Age of Menarche: 10 Review of Systems Const Denies daytime sleepiness, Denies excessive sweating, Denies fatigue, Denies fever(s), Denies lethargy, Denies malaise, Denies night sweats, Denies snoring and Denies weight loss Eyes Denies blurry vision and Denies itchy eyes ENT Denies nasal congestion, Denies post nasal drip, Denies sinus pain, Denies sinus pressure and Denies other ( Thrush) Card Denies chest pain, Denies pedal edema, Denies dyspnea, Denies orthopnea and Denies paroxysmal nocturnal dyspnea Resp Denies cough, Denies hemoptysis, Denies excessive phlegm production, Denies dyspnea, Denies snoring and Denies wheezing GI Denies abdominal pain and Denies heartburn Musc Denies myalgias, Denies arthralgias and Denies joint swelling Skin/Breast Denies rash Neuro Denies memory loss and Denies seizure-like activity Psych Denies abnormal sleep pattern, Denies anxiety and Denies memory loss Endo Denies excessive sweating, Denies fatigue and Denies heat intolerance Migue/Lymph Denies easy bruising Aller/Immun Denies itchy eyes, Denies seasonal rhinorrhea and Denies wheezing Physical Exam Vital Signs: Last Vital Signs Pulse 64 01/09/24 13:10 BP 142/72 H 01/09/24 13:10 Pulse Ox 100 01/09/24 13:10 Oxygen Delivery Method Room Air 01/09/24 13:10 BMI result Body Mass Index 31.2 Const General: no acute distress and alert Nutritional Appearance: not obese Orientation/consciousness: Other orientation findings ( oriented) HEENT Head: Yes atraumatic Eyes General: appearance normal, both eyes and all related structures Sclerae: sclerae normal EOM: EOMs intact bilaterally Neck Neck: Yes supple Lymphatic: no lymphadenopathy noted Resp Effort & Inspection: normal respiratory effort and no use of accessory muscles Auscultation: clear to auscultation bilaterally Cardio Rate: regular rate Rhythm: regular rhythm Heart sounds: no gallops, no murmurs and no rubs Skin General skin exam: other ( warm) Extrem General: No clubbing, No cyanosis and No edema Assessment & Plan Assessment & Plan (1) Asthma: Code(s): J45.909 - Unspecified asthma, uncomplicated Category: Medical Qualifiers: Asthma severity: moderate Asthma persistence: persistent Asthma complication type: uncomplicated Qualified Code(s): J45.40 - Moderate persistent asthma, uncomplicated Plan: Well controlled on Dupixent, Symbicort, and albuterol MDI. Continue current regimen. (2) Environmental allergies: Code(s): Z91.09 - Other allergy status, other than to drugs and biological substances Category: Medical Plan: Now with worsening allergy symptoms. Will obtain immunoglobin and complement studies. Orders: Orders Immunoglobulin G Subclasses Today Z91.09 - Other allergy status, other than to drugs and biological substances Coding Level of Care Code Est Pt Level 4 (89759) Diagnoses Moderate persistent asthma without complication J45.40 Asthma severity: moderate Asthma persistence: persistent Asthma complication type: uncomplicated Environmental allergies Z91.09
[2024-01-09 13:10] VITALS: BP 142/72; PULSE 64; O2SAT 100; BMI 31.2
== END 2024-01-09 13:27 | disposition home or self-care (01) ==
PROVIDERS: PCP Internal Medicine; Visit Provider Internal Medicine Pulmonary Disease
DX: J45.40 Moderate persistent asthma, uncomplicated (principal); Z91.09 Other allergy status, other than to drugs and biological substances
CPT/HCPCS: 99214

== ENCOUNTER 2024-01-29 12:08 | Outpatient (AMB) | payer OTHER, SELFPAY ==
--- NOTE | 2024-01-29 12:45 | MHC.OFFVIS ---
Vital Signs 01/29/24 12:46 Height 4 ft 10 in Weight 153 lb 7.068 oz BMI 32.1 BP 116/72 Blood Pressure Location Rt brachial Position Sitting Pulse 65 Pulse Source Pulse Oximeter Pulse Oximetry (%) 100 Oxygen Delivery Method Room Air Intake Visit Reasons: SLE/osteoporosis/LVM Intake Note: Patient last seen 12/25/23 presents today for follow up and test results. 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 Accompanied by: Self / Same As Patient Allergies seafood Allergy (Severe, Verified 01/29/24 12:59) Anaphylaxis vancomycin [VANCOMYCIN] Allergy (Severe, Verified 01/29/24 12:59) ANAPHYLAXIS, hives aspirin [ASPIRIN] Allergy (Intermediate, Verified 01/29/24 12:59) rash, asthma codeine [CODEINE] Allergy (Mild, Verified 01/29/24 12:59) rash egg [EGGS] Allergy (Mild, Verified 01/29/24 12:59) VOMITING peanut [PEANUTS] Allergy (Mild, Verified 01/29/24 12:59) HIVES,DIARRHEA amoxicillin [From Augmentin] Allergy (Verified 01/29/24 12:59) hives, swelling, difficulty breathing clavulanic acid [From Augmentin] Allergy (Verified 01/29/24 12:59) hives, swelling mushroom Allergy (Verified 01/29/24 12:59) Rash lactose Adverse Reaction (Intermediate, Verified 01/29/24 12:59) diarrhea Medication List - Last Reconciled 01/29/24 by Maryann Joseph MD acetaminophen (Tylenol Extra Strength) 500 mg PO Q6H PRN 30 days albuterol sulfate 90 mcg/actuation 90 mcg inhalation DAILY albuterol sulfate 2.5 mg inhalation TID PRN alendronate 70 mg PO QWEEK 90 days calcium carbonate 600 mg PO BID cyclobenzaprine 5 mg PO BEDTIME PRN 7 days dicyclomine 20 mg PO QID 30 days dupilumab (Dupixent) 200 mg (1.14 mL) subcut Q2W ergocalciferol (vitamin D2) 1,250 mcg PO QWEEK estradiol 0.01%(0.1mg/gram) 1 g vaginal DAILY fluoxetine 20 mg PO DAILY hydroxyzine HCl 10 - 20 mg PO Q6H PRN lisinopril 40 mg PO DAILY 90 days lorazepam 1 mg PO DAILY PRN omeprazole 40 mg PO BID 30 days ondansetron 4 mg PO Q8H PRN 7 days sucralfate 3 grams (3 x 1 gram) PO DAILY sumatriptan succinate 50 mg PO DAILY PRN Symbicort 160-4.5 mcg/actuation (budesonide-formoterol) 2 puffs PO BID NS trazodone 100 mg PO DAILY HPI Comments Details: Patient returns for follow-up after completion of her diagnostic workup. She was started on alendronate by Dr. Merida about a month ago. She states that she has significant difficulty tolerating the alendronate. It causes significant GI upset, acid reflux. As well as dizziness and fatigue. She gets intermittent rashes on her face. She denies any muscle weakness. Initial history: This is a 63-year-old female who is referred by her PCP for evaluation of osteoporosis. Patient states that since traveled she would need repeated courses of prednisone to control her asthma. Until recently she was started on Dupixent with reduction in dependence on steroids. She was started on alendronate by her PCP about a month ago. He states that it causes dizziness. She thought that it is taken once a month. She states that in her 30s, she was having back pain and was evaluated by [employer] and was told that she has lupus she was told that the treatments would consist of prednisone. Patient declined. She does not recall any formal assessment by a [employer] since then. She states that she can see intermittent joint pains. Intermittently she would have pain in her ribs on the right and posteriorly. Associated with swelling. In 2019 she had unprovoked PE and was found to have positive lupus anticoagulant. She was on rivaroxaban for some time. She is no longer on rivaroxaban. She is unaware of any family history of an autoimmune rheumatic disease [facility] Medical History Pulmonary embolism Pulmonary embolism Vaginal itching Hx of human papillomavirus infection Candidiasis of mouth and esophagus Abdominal cramping Pneumonia Bile salt-induced diarrhea History of pilonidal cyst Abdominal bloating Gastritis COVID-19 IBS (irritable bowel syndrome) Hypertension Pre-eclampsia Irritable bowel syndrome with both constipation and diarrhea Gallstones Surgical History H/O cervical polypectomy Hx of esophagogastroduodenoscopy H/O colonoscopy History of surgical removal of pilonidal cyst S/P tonsillectomy History of section History of cholecystectomy Family History Father Heart attack GERD (gastroesophageal reflux disease) Peptic ulcer disease Mother CHF (congestive heart failure) Afib Diverticulitis History of bowel resection Hypothyroid COVID-19 Maternal Aunt Diabetes Maternal Uncle Cancer Maternal Grandmother Cancer Brother Mental health disorder Social History Household Members: Spouse Housing: Apartment Are you a primary patient centered care specialist to a significant other at home: No Do you presently have visiting nurse or other home services: Yes (phone visits) Alcohol intake: former Patient Tobacco Use Status: Never used Tobacco e-Cigarette/Vaping Use: Never Used Second Hand Smoke Exposure: No service: No Current occupational status: retired Cognitive needs: No Hearing needs: No Vision needs: No Female Reproductive History Menstrual Age of Menarche: 10 Review of Systems Const Denies weakness ENT Reports neck pain Musc Reports arthralgias, Denies muscle weakness and Reports neck pain Skin/Breast Reports rash Neuro Denies weakness Physical Exam Vital Signs: Last Vital Signs Pulse 65 01/29/24 12:46 BP 116/72 01/29/24 12:46 Pulse Ox 100 01/29/24 12:46 Oxygen Delivery Method Room Air 01/29/24 12:46 BMI result Body Mass Index 32.1 Const General: cooperative, healthy appearing and comfortable Nutritional Appearance: obese and overweight Orientation/consciousness: patient oriented x3 Limitations: no limitations HEENT Head: Yes normocephalic and Yes atraumatic Mouth: moist mucous membranes Resp Effort & Inspection: normal respiratory effort and able to speak in complete sentences Cardio Rate: regular rate Rhythm: regular rhythm Skin General skin exam: no rashes or lesions noted Neuro General: patient oriented x3 Extrem Other: No active synovitis Reduced range of motion of right shoulder Positive empty can test on the right Proximal muscle strength 5/5 all 4 extremities Nailfold capillaroscopy shows few parallel hemorrhages right 3rd finger Assessment & Plan Assessment & Plan (1) Osteoporosis: Code(s): M81.0 - Age-related osteoporosis without current pathological fracture Category: Medical Qualifiers: Osteoporosis type: unspecified Presence of current pathological fracture: without current pathological fracture Qualified Code(s): M81.0 - Age-related osteoporosis without current pathological fracture Plan: This is a 63-year-old female who presents for evaluation of osteoporosis. Per patient she used to get repeated courses of steroids since her childhood to treat her asthma. Her asthma has been doing better for about a year since she started Dupixent. Patient is unaware of any history of fractures. DEXA in 2022 showed osteoporosis. Labs for secondary causes of osteoporosis were negative. Patient was started on alendronate by her PCP 4 weeks ago but could not tolerate it due to significant GI upset, fatigue, worsening GERD. Will need to switch to a parenteral route. Discussed risks and benefits of Reclast. Patient agreed to proceed. Will start prior authorization for Reclast. (2) History of pulmonary embolism: Code(s): Z86.711 - Personal history of pulmonary embolism Category: Medical Plan: Per patient she was tested by [employer] in her 30s and was told that she has lupus but she did not get any treatment. Patient had an unprovoked PE in 2019, evaluated by Hematology and was found to have a positive lupus anticoagulant and started on Xarelto. She is no longer on Xarelto. Repeat lupus anticoagulant is negative as well as antiphospholipid and beta 2 glycoprotein antibodies (3) NEHA positive: Code(s): R76.8 - Other specified abnormal immunological findings in serum Category: Medical Plan: Further sub serologies for lupus was negative. States that she gets intermittent rashes on her face but they are concealed by makeup today. Advised patient to take pictures of her rashes and come without make up to her next clinic visit with me. Will also check myositis antibodies. Plan I spent 27 minutes reviewing patient's chart, evaluating patient, ordering diagnostic workup, counseling patient and documenting in the chart Orders: Orders MSA Panel Extended 6 Months M60.9 - Myositis, unspecified Aldolase 6 Months M60.9 - Myositis, unspecified Lactate Dehydrogenase 6 Months M60.9 - Myositis, unspecified Vitamin D 25-OH (D2 and D3) 6 Months Z13.21 - Encounter for screening for nutritional disorder Collagen Type I C-Telopeptide 6 Months M81.0 - Age-related osteoporosis without current pathological fracture Creatine Kinase Total 6 Months M60.9 - Myositis, unspecified Comprehensive Met. Panel 6 Months M60.9 - Myositis, unspecified Medications: Discontinued alendronate Discontinued Reason: Doctor's Order 70 mg PO QWEEK 90 days 13 tabs 2RF M81.0 - Age-related osteoporosis without current pathological fracture Coding Level of Care Code Est Pt Level 4 (40679) Diagnoses Osteoporosis without current pathological fracture, unspecified osteoporosis type M81.0 Osteoporosis type: unspecified Presence of current pathological fracture: without current pathological fracture History of pulmonary embolism Z86.711 NEHA positive R76.8
[2024-01-29 12:46] VITALS: BP 116/72; PULSE 65; O2SAT 100; BMI 32.1
== END 2024-01-29 13:20 | disposition home or self-care (01) ==
PROVIDERS: PCP Internal Medicine; Visit Provider Student in an Organized Health Care Education/Training Program
DX: M81.0 Age-related osteoporosis without current pathological fracture (principal); Z86.711 Personal history of pulmonary embolism; R76.8 Other specified abnormal immunological findings in serum
CPT/HCPCS: 99214

== ENCOUNTER → 2024-01-29 12:08 | Outpatient (BNVA) | payer OTHER, SELFPAY | PROVIDERS: PCP Internal Medicine; Visit Provider Student in an Organized Health Care Education/Training Program | DX: M81.0 Age-related osteoporosis without current pathological fracture (principal); R76.8 Other specified abnormal immunological findings in serum; Z86.711 Personal history of pulmonary embolism; Z79.01 Long term (current) use of anticoagulants | CPT/HCPCS: 99212 ==

== ENCOUNTER 2024-02-06 08:42 | Outpatient (REF) | payer OTHER, SELFPAY ==
[2024-02-06 09:24] LABS: Appearance Urine Clear; Color Urine Yellow; Glucose Urine UA Negative (Negative); Leukocyte Esterase Urine Small (1+) (Negative); Nitrite Urine Negative (Negative); PH 5.5 (5.0-9.0); UMIC TRIGGER UACC YES; Urine Blood Negative (Negative); Urine Ketones Trace mg/dL (Negative); Urine Protein Negative (Neg-Trace)
[2024-02-06 09:27] LABS: Bacteria Urine Trace (None Seen); Hyaline Casts Urine 0-2 /LPF (0-2); RBC Urine 0-2 /HPF (0-2); UACC Culture Trigger YES
[2024-02-06 09:51] LABS: Alanine Aminotransferase 23 U/L (0-31); Alkaline Phosphatase 130 U/L (39-117); Anion Gap 12 (12-20); Aspartate Amino Transferase 28 U/L (5-31); Bilirubin Total 0.3 mg/dL (0.0-1.0); Blood Urea Nitrogen 11 mg/dL (9-16); Calcium 9.4 mg/dL (8.4-10.2); Carbon Dioxide 27 mmol/L (22-29); Chloride 107 mmol/L (96-108); Estimated Glomerular Filt Rate > 60; Glucose Random 90 mg/dL (60-115); Potassium 3.8 mmol/L (3.3-5.1); Sodium 142 mmol/L (135-145); Total Protein 7.1 g/dL (6.5-8.0)
[2024-02-06 10:03] LABS: Lactate Dehydrogenase 189 U/L (122-220)
[2024-02-10 16:09] LABS: Vitamin D 25-OH, D2 11 ng/mL; Vitamin D 25-OH, D3 21 ng/mL; Vitamin D 25-OH, Total 32 ng/mL (30-100)
[2024-02-12 21:09] LABS: Collagen Type I C-Telopeptide 887 pg/mL (see note)
[2024-02-12 22:28] LABS: Aldolase 5.4 U/L (<=8.1)
[2024-02-21 14:38] LABS: Cytosolic 5'nuc 1A Ab IgG <5 Units; Ej Ab <11 SI (<11); HMGCR Ab IgG <2 CU (<20); Jo-1 Ab <11 SI (<11); MDA5 Ab <11 SI (<11); Mi-2 alpha Ab <11 SI (<11); Mi-2 beta Ab <11 SI (<11); NXP-2 (MJ) Ab <11 SI (<11); Oj Ab <11 SI (<11); Pl-12 Ab <11 SI (<11); Pl-7 Ab <11 SI (<11); SRP Ab <11 SI (<11); TIF1 gamma Ab <11 SI (<11)
== END 2024-02-06 08:43 | disposition home or self-care (01) ==
LOC: HO.LAB 08:42
PROVIDERS: Absent Provider Student in an Organized Health Care Education/Training Program; PCP Internal Medicine; Visit Provider Internal Medicine
DX: Z13.21 Encounter for screening for nutritional disorder (principal); M81.0 Age-related osteoporosis without current pathological fracture; M60.9 Myositis, unspecified; R30.0 Dysuria
CPT/HCPCS: 36415; 80053; 81001; 82085; 82306; 82523; 82550; 83516; 83520; 83615; 84182; 86235; 87086

== ENCOUNTER 2024-04-01 12:56 | Outpatient (AMB) | payer OTHER, SELFPAY ==
--- NOTE | 2024-04-01 13:12 | A.OFFVIS_ITS ---
Vital Signs 04/01/24 13:15 Height 4 ft 10 in Weight 156 lb 8.451 oz BMI 32.7 BP 152/67 H Blood Pressure Location Lt brachial Position Sitting Pulse 65 Intake Visit Reasons: 6 month follow up Intake Note: Ada presents in the office as a 6 month follow up. CC: She states that she has been having issues with her stomach. She states that she will have 3-4 BMs to empty her bowels. She states they are pasty stools and she still feels like her bowels are not fully emptied. She feels like she may have IBS and states that she has to push to get stools out -- feels like she is forming hemorrhoids. Front Office Associate Required: No Allergies seafood Allergy (Severe, Verified 04/02/24 13:29) Anaphylaxis vancomycin [VANCOMYCIN] Allergy (Severe, Verified 04/02/24 13:29) ANAPHYLAXIS, hives aspirin [ASPIRIN] Allergy (Intermediate, Verified 04/02/24 13:29) rash, asthma codeine [CODEINE] Allergy (Mild, Verified 04/02/24 13:29) rash egg [EGGS] Allergy (Mild, Verified 04/02/24 13:29) VOMITING peanut [PEANUTS] Allergy (Mild, Verified 04/02/24 13:29) HIVES,DIARRHEA amoxicillin [From Augmentin] Allergy (Verified 04/02/24 13:29) hives, swelling, difficulty breathing clavulanic acid [From Augmentin] Allergy (Verified 04/02/24 13:29) hives, swelling mushroom Allergy (Verified 04/02/24 13:29) Rash lactose Adverse Reaction (Intermediate, Verified 04/02/24 13:29) diarrhea HPI HPI 6 month follow up: Details: Assessment & Plan (1) Acute diarrhea: Code(s): R19.7 - Diarrhea, unspecified (2) GERD (gastroesophageal reflux disease): Code(s): K21.9 - Gastro-esophageal reflux disease without esophagitis (3) Irritable bowel syndrome with both constipation and diarrhea: Comment: now more bile salt diarrhea since she is status post cholecystectomy Code(s): K58.2 - Mixed irritable bowel syndrome Plan She says that her GI problems are controlled now that she takes her medication as prescribed. She did better with the foot swelling after stopping the cardizem, but then had more asthma problems with the metoprolol, so she stopped it as I directed. She also had some lip swelling and itching. She will see her new PCP next month and she continues for now on her lisinopril. Her current GI regimen now consists of dicyclomine 20 mg 4 times a day, omeprazole 40 mg twice a day, sucralfate 3 g a day. ROV 6 mos. TODAY'S VISIT SHe has only been taking 1/2 carafate a day bid, and because she has to push hard to move soft/pasty stools she now is taking only 1/2 pill qd. I suggest she stop the carafate completely. She continues on Bentyl qid. She is on omeprazole bid. She also has a great deal of loud, forceful belching ? r/t backlash and pushing. RO 4 weeks to eval if we need to change the carafate. [facility] Medical History COVID-19 Pulmonary embolism Pulmonary embolism Vaginal itching Hx of human papillomavirus infection Candidiasis of mouth and esophagus Abdominal cramping Pneumonia Bile salt-induced diarrhea History of pilonidal cyst Abdominal bloating Gastritis IBS (irritable bowel syndrome) Hypertension Pre-eclampsia Irritable bowel syndrome with both constipation and diarrhea Gallstones Surgical History H/O cervical polypectomy Hx of esophagogastroduodenoscopy H/O colonoscopy History of surgical removal of pilonidal cyst S/P tonsillectomy History of section History of cholecystectomy Family History Father Heart attack GERD (gastroesophageal reflux disease) Peptic ulcer disease Mother CHF (congestive heart failure) Afib Diverticulitis History of bowel resection Hypothyroid COVID-19 Maternal Aunt Diabetes Maternal Uncle Cancer Maternal Grandmother Cancer Brother Mental health disorder Social History Household Members: Spouse Housing: Apartment Are you a primary pet care technician to a significant other at home: No Do you presently have visiting nurse or other home services: Yes (phone visits) Alcohol intake: former Patient Tobacco Use Status: Never used Tobacco e-Cigarette/Vaping Use: Never Used Second Hand Smoke Exposure: No service: No Current occupational status: retired Cognitive needs: No Hearing needs: No Vision needs: No Female Reproductive History Menstrual Age of Menarche: 10 Review of Systems Const Denies fatigue, Denies fever(s), Denies night sweats, Denies poor appetite and Denies weight loss ENT Reports Normal hearing present, Denies dental pain, Denies dysphagia, Denies hearing loss, Denies mouth pain, Denies odynophagia, Denies throat swelling, Denies tongue swelling and Reports other (Dentition adequate) Card Reports no additional complaints Resp Reports no additional complaints GI Details: Straining with stools and incomplete evacuation Denies abdominal pain, Denies melena, Denies bloating, Denies hematochezia, Reports constipation, Denies GI cramping, Denies dysphagia, Denies excessive flatus, Denies early satiety, Reports heartburn, Reports diarrhea, Denies nausea, Denies odynophagia, Denies vomiting and Denies hematemesis Skin/Breast Denies pruritus, Denies lesions, Denies rash and Denies jaundice Neuro Reports Normal hearing present and Denies Abnormal speech present Endo Denies fatigue Aller/Immun Denies throat swelling and Denies tongue swelling Physical Exam Vital Signs: Last Vital Signs Pulse 65 04/01/24 13:15 BP 152/67 H 04/01/24 13:15 BMI result Body Mass Index 32.7 Const General: cooperative, no acute distress, well developed and well groomed Nutritional Appearance: well nourished and obese Orientation/consciousness: oriented to person, oriented to place and oriented to time Limitations: No language barrier HEENT Head: Yes normocephalic and Yes atraumatic Eyes General: appearance normal, both eyes and all related structures Pupils: Equal, round and reactive pupils present Neck Neck: Yes normal visual inspection and Yes no lymphadenopathy Thyroid: Thyroid normal Resp Effort & Inspection: normal respiratory effort and able to speak in complete sentences Auscultation: clear to auscultation bilaterally Cardio Rate: regular rate Rhythm: regular rhythm Heart sounds: Normal, physiologic split S2 sound present Peripheral pulses: radial pulses present and posterior tibial pulses present GI Inspection: No distended, No Abdominal panniculus present and Yes obesity Palpation (GI): Soft to palpation, nontender, no guarding, not rigid and No hepatosplenomegaly present Percussion: Yes normal to percussion Auscultation: normal bowel sounds Rectal Exam - Female: deferred Skin General skin exam: no rashes or lesions noted, turgor normal, skin not dry, no jaundice, No spider nevi and no striae Rashes: no rashes Nails: normal Neuro General: oriented to person, oriented to place and oriented to time Cranial nerves: Yes Equal, round and reactive pupils present and Yes Normal hearing present Speech: No Abnormal speech present Extrem General: Yes normal to inspection, No clubbing, No cyanosis and No edema Psych Appearance: grossly normal and well kempt Mental Status: mental status grossly normal Speech and movement: Normal speech and movement present Affect: normal affect Attitude: cooperative Thought process: Normal thought process present and not confabulating Thought content: Normal thought content present Insight: Limited insight present (Psych) Judgement: Limited judgement present (Psych) Assessment & Plan Assessment & Plan (1) GERD (gastroesophageal reflux disease): Code(s): K21.9 - Gastro-esophageal reflux disease without esophagitis Category: Medical Qualifiers: Esophagitis presence: esophagitis presence not specified Qualified Code(s): K21.9 - Gastro-esophageal reflux disease without esophagitis (2) Irritable bowel syndrome with both constipation and diarrhea: Comment: now more bile salt diarrhea since she is status post cholecystectomy Code(s): K58.2 - Mixed irritable bowel syndrome Category: Medical Plan SHe has only been taking 1/2 carafate a day bid, and because she has to push hard to move soft/pasty stools she now is taking only 1/2 pill qd. I suggest she stop the carafate completely. She continues on Bentyl qid. She is on omeprazole bid. She also has a great deal of loud, forceful belching ? r/t backlash and pushing. RO 4 weeks to eval if we need to change the carafate. Medications: Refilled omeprazole 40 mg PO BID 180 caps 1RF K21.9 - Gastro-esophageal reflux disease without esophagitis dicyclomine 20 mg PO QID 120 tabs 6RF 30 days K58.2 - Mixed irritable bowel syndrome, R10.9 - Unspecified abdominal pain Discontinued ciprofloxacin HCl (Cipro) Discontinued Reason: Patient no longer taking 250 mg PO BID 3 days 6 tabs 0RF cyclobenzaprine Discontinued Reason: Patient no longer taking 5 mg PO BEDTIME 7 days PRN 7 tabs 1RF muscle spasm On Hold sucralfate Hold Comment: Doctor's Order 3 grams (3 x 1 gram) PO DAILY 90 tabs 6RF K90.89 - Other intestinal malabsorption Coding Level of Care Code Est Pt Level 3 (52964) Diagnoses Gastroesophageal reflux disease, unspecified whether esophagitis present K21.9 Esophagitis presence: esophagitis presence not specified Irritable bowel syndrome with both constipation and diarrhea K58.2
[2024-04-01 13:15] VITALS: BP 152/67; PULSE 65; BMI 32.7
== END 2024-04-01 13:50 | disposition home or self-care (01) ==
PROVIDERS: PCP Internal Medicine; Visit Provider Nurse Practitioner
DX: K21.9 Gastro-esophageal reflux disease without esophagitis (principal); K58.2 Mixed irritable bowel syndrome
CPT/HCPCS: 99213

== ENCOUNTER → 2024-04-01 12:56 | Outpatient (BNVA) | payer OTHER, SELFPAY | PROVIDERS: PCP Internal Medicine; Visit Provider Nurse Practitioner | DX: K21.9 Gastro-esophageal reflux disease without esophagitis (principal); K58.2 Mixed irritable bowel syndrome | CPT/HCPCS: 99212 ==

== ENCOUNTER 2024-04-02 13:02 | Outpatient (AMB) | payer OTHER, SELFPAY ==
--- NOTE | 2024-04-02 13:07 | A.OFFPC_ITS ---
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 Accompanied by: Self / Same As Patient Allergies seafood Allergy (Severe, Verified 04/02/24 13:29) Anaphylaxis vancomycin [VANCOMYCIN] Allergy (Severe, Verified 04/02/24 13:29) ANAPHYLAXIS, hives aspirin [ASPIRIN] Allergy (Intermediate, Verified 04/02/24 13:29) rash, asthma codeine [CODEINE] Allergy (Mild, Verified 04/02/24 13:29) rash egg [EGGS] Allergy (Mild, Verified 04/02/24 13:29) VOMITING peanut [PEANUTS] Allergy (Mild, Verified 04/02/24 13:29) HIVES,DIARRHEA amoxicillin [From Augmentin] Allergy (Verified 04/02/24 13:29) hives, swelling, difficulty breathing clavulanic acid [From Augmentin] Allergy (Verified 04/02/24 13:29) hives, swelling mushroom Allergy (Verified 04/02/24 13:29) Rash lactose Adverse Reaction (Intermediate, Verified 04/02/24 13:29) diarrhea Medication List - Last Reconciled 04/02/24 by Iqra Lawrence MD acetaminophen (Tylenol Extra Strength) 500 mg PO Q6H PRN 30 days albuterol sulfate 90 mcg/actuation 90 mcg inhalation DAILY albuterol sulfate 2.5 mg inhalation TID PRN calcium carbonate 600 mg PO BID dicyclomine 20 mg PO QID 30 days dupilumab (Dupixent) 200 mg (1.14 mL) subcut Q2W ergocalciferol (vitamin D2) 1,250 mcg PO QWEEK estradiol 0.01%(0.1mg/gram) 1 g vaginal DAILY fluoxetine 20 mg PO DAILY hydroxyzine HCl 10 - 20 mg PO Q6H PRN lisinopril 40 mg PO DAILY 90 days lorazepam 1 mg PO DAILY PRN melatonin 3 mg PO BEDTIME omeprazole 40 mg PO BID ondansetron 4 mg PO Q8H PRN 7 days sumatriptan succinate 50 mg PO DAILY PRN Symbicort 160-4.5 mcg/actuation (budesonide-formoterol) 2 puffs PO BID NS trazodone 100 mg PO DAILY Tobacco use date assessed: 11/21/23 Dental Screening Dental Screen Date: 11/21/23 HPI HPI Comments History of Present Illness Details This is a 63-year-old female with COPD and mild major depression that comes for her physical exam. COPD stable with long-acting inhaler and mild major depression well controlled with medications and follow by Psychiatry. Last mammogram was 2020 and I will order another mammogram. DEXA scan was done recently showing osteoporosis that is follow by Rheumatology and she is on Reclast. Last colonoscopy was 2017 which was normal. She complains of chest pain when having elevated blood pressure. I will add chlorthalidone and blood pressure will be recheck in 3 weeks by nurse navigator. EKG will be ordered. [facility] Medical History (Updated 04/02/24 @ 13:48 by Iqra Lawrence MD) COVID-19 Pulmonary embolism Pulmonary embolism Vaginal itching Hx of human papillomavirus infection Candidiasis of mouth and esophagus Abdominal cramping Pneumonia Bile salt-induced diarrhea History of pilonidal cyst Abdominal bloating Gastritis IBS (irritable bowel syndrome) Hypertension Pre-eclampsia Irritable bowel syndrome with both constipation and diarrhea Gallstones Surgical History H/O cervical polypectomy Hx of esophagogastroduodenoscopy H/O colonoscopy History of surgical removal of pilonidal cyst S/P tonsillectomy History of section History of cholecystectomy Family History Father Heart attack GERD (gastroesophageal reflux disease) Peptic ulcer disease Mother CHF (congestive heart failure) Afib Diverticulitis History of bowel resection Hypothyroid COVID-19 Maternal Aunt Diabetes Maternal Uncle Cancer Maternal Grandmother Cancer Brother Mental health disorder Social History Household Members: Spouse Housing: Apartment Are you a primary multi care technician to a significant other at home: No Do you presently have visiting nurse or other home services: Yes (phone visits) Alcohol intake: former Patient Tobacco Use Status: Never used Tobacco e-Cigarette/Vaping Use: Never Used Second Hand Smoke Exposure: No service: No Current occupational status: retired Cognitive needs: No Hearing needs: No Vision needs: No Female Reproductive History Menstrual Age of Menarche: 10 Questionnaire Thrive Questionnaire Date Thrive assessed: 11/21/23 JESSICA-7 AMB Questionnaire JESSICA-7 Date JESSICA - 7 assessed: 11/21/23 Source: Developed by Drs. Mehran Win, Maddy Rapp, Toni Dorantes and colleagues, with an educational cody from [employer]. Review of Systems Const All systems reviewed & are unremarkable except as noted in HPI and below Card Reports chest pain at rest, Denies chest pain with activity, Denies edema, Denies irregular heart rhythm, Denies claudication, Denies dyspnea, Denies dyspnea on exertion, Denies orthopnea, Denies paroxysmal nocturnal dyspnea and Denies slow heart rate Resp Denies cough, Denies dyspnea and Denies dyspnea on exertion GI Denies abdominal pain, Denies change in bowel habits, Denies excessive flatus, Denies nausea and Denies vomiting Denies urinary incontinence, Denies urinary hesitancy and Denies urinary urgency Musc Denies abnormal gait, Denies atrophy, Denies deformity and Denies limited range of motion Skin/Breast Denies bleeding lesions, Denies changing lesions and Denies rash Neuro Denies abnormal gait and Denies lack of coordination Physical exam (Primary Care) Vital Signs: Last Vital Signs BP 156/82 H 04/02/24 13:09 BMI result Body Mass Index 33.0 Tobacco/Smoking Status: Tobacco use Status Tobacco use date assessed 11/21/23 04/02/24 13:14 Patient Tobacco Use Status Never used Tobacco 04/02/24 13:14 e-Cigarette/Vaping Use Never Used 04/02/24 13:14 Thrive Assessment: Date of Thrive Assessment Date Thrive assessed 11/21/23 04/02/24 13:14 HENMT Head: Yes normal to inspection, Yes normocephalic and Yes atraumatic Ears: external ears normal Eyes General: appearance normal, both eyes and all related structures Eyelids: Yes eyelids normal Conjunctivae: conjunctivae normal Neck Neck: Yes normal visual inspection and Yes supple Resp Effort & Inspection: normal respiratory effort Auscultation: clear to auscultation bilaterally Cardio Jugular venous distension: no JVD Rate: regular rate Rhythm: regular rhythm Heart sounds: S1 normal heart sound present and S2 normal heart sound present GI Inspection: Yes normal to inspection Palpation (GI): Soft to palpation and nontender Auscultation: normal bowel sounds Skin General skin exam: no rashes or lesions noted Neuro General: no focal motor deficits Extrem General: Yes full ROM Psych Appearance: grossly normal Assessment and Plan Assessment & Plan (1) Physical exam: Code(s): Z00.00 - Encounter for general adult medical examination without abnormal findings Plan: Repeat in a year. (2) Mild major depression: Comment: Follows with psychiatry Code(s): F32.0 - Major depressive disorder, single episode, mild Plan: Continue SSRIs. Follow-up with psychiatry. (3) COPD (chronic obstructive pulmonary disease): Code(s): J44.9 - Chronic obstructive pulmonary disease, unspecified Qualifiers: COPD type: unspecified COPD Qualified Code(s): J44.9 - Chronic obstructive pulmonary disease, unspecified Plan: Continue long-acting inhaler. Use rescue inhaler as needed. (4) Chest pain: Code(s): R07.9 - Chest pain, unspecified Qualifiers: Chest pain type: unspecified Qualified Code(s): R07.9 - Chest pain, unspecified Plan: EKG ordered. Orders: Orders MM screening mammo BI Today Z12.31 - Encounter for screening mammogram for malignant neoplasm of breast ECG 12 lead EKG Today R07.9 - Chest pain, unspecified Medications: New chlorthalidone 25 mg PO DAILY 90 days 90 tabs 1RF Changed From estradiol 0.01%(0.1mg/gram) 1 g vaginal DAILY To estradiol 0.01%(0.1mg/gram) 1 g vaginal DAILY 30 days 42.5 grams 0RF Coding Level of Care Code Est Pt Level 3 (59855) Est Pt Prev Care 40-64y(07031) Diagnoses Physical exam Z00.00 Mild major depression F32.0 Chronic obstructive pulmonary disease, unspecified COPD type J44.9 COPD type: unspecified COPD Chest pain, unspecified type R07.9 Chest pain type: unspecified Time Spent (min) 33
[2024-04-02 13:09] VITALS: BP 156/82; BMI 33.0
[2024-04-02 13:46] VITALS: BP 150/80
== END 2024-04-02 13:46 | disposition home or self-care (01) ==
PROVIDERS: PCP Internal Medicine; Visit Provider Internal Medicine
DX: Z00.00 Encounter for general adult medical examination without abnormal findings (principal); R07.9 Chest pain, unspecified; F32.0 Major depressive disorder, single episode, mild; J44.9 Chronic obstructive pulmonary disease, unspecified
CPT/HCPCS: 99213; 99396

== ENCOUNTER → 2024-04-02 13:55 | Outpatient (REF) | payer OTHER, SELFPAY ==
--- NOTE | 2024-04-02 14:12 | ECG_ITS ---
Test Reason : R07.9 - Chest pain, unspecified Blood Pressure : / mmHG Vent. Rate : 064 BPM Atrial Rate : 064 BPM P-R Int : 166 ms QRS Dur : 076 ms QT Int : 428 ms P-R-T Axes : 030 006 028 degrees QTc Int : 441 ms Normal sinus rhythm Normal ECG When compared with ECG of 08-SEP-2021 17:41, No significant change was found Referred By: Iqra Lawrence Electronically Signed By:CRISTI GUZMAN MD
== END ==
LOC: HO.CARD 13:55
PROVIDERS: PCP Internal Medicine; Visit Provider Internal Medicine
DX: R07.9 Chest pain, unspecified (principal)
CPT/HCPCS: 93005

== ENCOUNTER → 2024-04-02 14:12 | Outpatient (BNV) | payer OTHER, SELFPAY | PROVIDERS: PCP Internal Medicine; Visit Provider Internal Medicine Cardiovascular Disease | DX: R07.9 Chest pain, unspecified (principal) | CPT/HCPCS: 93010 ==

== ENCOUNTER 2024-05-01 11:53 | Outpatient (REF) | payer OTHER, SELFPAY ==
--- NOTE | ~2024-05-01 | MM_ITS ---
EXAMINATION: MM SCREENING DIGITAL BREAST TOMOSYNTHESIS, BILATERAL CLINICAL INFORMATION: Screening. Asymptomatic. COMPARISON: Mammography: This study is compared with prior exams dating back to 2017. TECHNIQUE: Digital breast tomosynthesis is performed in both the craniocaudal and mediolateral oblique views along with computer-aided detection (CAD). Synthesized 2D images are generated from the tomosynthesis. FINDINGS: The breasts are almost entirely fatty (ACR BI-RADS breast composition Category a). There are no significant masses, abnormal calcifications, or other abnormalities. MM/MM tomosynthesis screening BI IMPRESSION: No mammographic evidence of malignancy. ASSESSMENT: BI-RADS BI-RADS 1 - Negative RECOMMENDATION: Routine annual mammography screening. 1 year F/U This examination should not preclude the clinical evaluation of a suspicious palpable abnormality. This patient's information was entered into a reminder system with a target due date for their next mammogram. Electronically signed by: Melany Tobar MD 05/31/2024 02:45 PM EDT
== END 2024-05-01 11:54 | disposition home or self-care (01) ==
LOC: HO.MAMMO 11:53
PROVIDERS: PCP Internal Medicine; Visit Provider Internal Medicine
DX: I10 Essential (primary) hypertension (principal); Z12.31 Encounter for screening mammogram for malignant neoplasm of breast
CPT/HCPCS: 77063; 77067; 99212

== ENCOUNTER → 2024-05-01 12:30 | Outpatient (BNV) | payer OTHER, SELFPAY | PROVIDERS: PCP Internal Medicine; Visit Provider Radiology Diagnostic Radiology | DX: Z12.31 Encounter for screening mammogram for malignant neoplasm of breast (principal) | CPT/HCPCS: 77063; 77067 ==

== ENCOUNTER 2024-05-01 13:03 | Outpatient (AMB) | payer OTHER, SELFPAY ==
--- NOTE | 2024-05-01 13:16 | MHC.OFFVIS ---
Vital Signs 05/01/24 13:23 Height 4 ft 10 in Weight 158 lb 4.67 oz BMI 33.1 BP 136/79 Blood Pressure Location Lt brachial Position Sitting Pulse 57 Intake Visit Reasons: 4 weeks GERD Intake Note: Ada presents in the office as a 4 weeks follow up. CC: She c/o abdominal cramping and bloating, LUQ abdominal pain, nausea sometimes, and feeling that she has to go multiple times to the bathroom because she feels she still needs to empty her bowels. She also reports that she has noticed gaining weight. 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 Accompanied by: Self / Same As Patient Allergies seafood Allergy (Severe, Verified 05/01/24 13:31) Anaphylaxis vancomycin [VANCOMYCIN] Allergy (Severe, Verified 05/01/24 13:31) ANAPHYLAXIS, hives aspirin [ASPIRIN] Allergy (Intermediate, Verified 05/01/24 13:31) rash, asthma codeine [CODEINE] Allergy (Mild, Verified 05/01/24 13:31) rash egg [EGGS] Allergy (Mild, Verified 05/01/24 13:31) VOMITING peanut [PEANUTS] Allergy (Mild, Verified 05/01/24 13:31) HIVES,DIARRHEA amoxicillin [From Augmentin] Allergy (Verified 05/01/24 13:31) hives, swelling, difficulty breathing clavulanic acid [From Augmentin] Allergy (Verified 05/01/24 13:31) hives, swelling mushroom Allergy (Verified 05/01/24 13:31) Rash lactose Adverse Reaction (Intermediate, Verified 05/01/24 13:31) diarrhea HPI HPI 4 weeks GERD: Details: Assessment & Plan (1) GERD (gastroesophageal reflux disease): Code(s): K21.9 - Gastro-esophageal reflux disease without esophagitis Category: Medical Qualifiers: Esophagitis presence: esophagitis presence not specified Qualified Code(s): K21.9 - Gastro-esophageal reflux disease without esophagitis (2) Irritable bowel syndrome with both constipation and diarrhea: Comment: now more bile salt diarrhea since she is status post cholecystectomy Code(s): K58.2 - Mixed irritable bowel syndrome Category: Medical Plan SHe has only been taking 1/2 carafate a day bid, and because she has to push hard to move soft/pasty stools she now is taking only 1/2 pill qd. I suggest she stop the carafate completely. She continues on Bentyl qid. She is on omeprazole bid. She also has a great deal of loud, forceful belching ? r/t backlash and pushing. RO 4 weeks to eval if we need to change the carafate. Medications: Refilled omeprazole 40 mg PO BID 180 caps 1RF K21.9 - Gastro-esophageal reflux disease without esophagitis dicyclomine 20 mg PO QID 120 tabs 6RF 30 days K58.2 - Mixed irritable bowel syndrome, R10.9 - Unspecified abdominal pain Discontinued ciprofloxacin HCl (Cipro) Discontinued Reason: Patient no longer taking 250 mg PO BID 3 days 6 tabs 0RF cyclobenzaprine Discontinued Reason: Patient no longer taking 5 mg PO BEDTIME 7 days PRN 7 tabs 1RF muscle spasm On Hold sucralfate Hold Comment: Doctor's Order 3 grams (3 x 1 gram) PO DAILY 90 tabs 6RF K90.89 - Other intestinal malabsorption TODAY'S VISIT She is having a lot of bloating and cramping and soft stool with incomplete evacuation. She has a new BP medication chlorthalidone for her general swelling as well. This may be why her stooling is changing. She is concerned that her weight is not dropping, but diuretics will not remove fat, or swelling r/t arthritis. Will start senna 1-2 and she can titrate it. She continues on her omeprazole and bentyl. ROV 8 weeks. [facility] Medical History COVID-19 Pulmonary embolism Pulmonary embolism Vaginal itching Hx of human papillomavirus infection Candidiasis of mouth and esophagus Abdominal cramping Pneumonia Bile salt-induced diarrhea History of pilonidal cyst Abdominal bloating Gastritis IBS (irritable bowel syndrome) Hypertension Pre-eclampsia Irritable bowel syndrome with both constipation and diarrhea Gallstones Surgical History H/O cervical polypectomy Hx of esophagogastroduodenoscopy H/O colonoscopy History of surgical removal of pilonidal cyst S/P tonsillectomy History of section History of cholecystectomy Family History Father Heart attack GERD (gastroesophageal reflux disease) Peptic ulcer disease Mother CHF (congestive heart failure) Afib Diverticulitis History of bowel resection Hypothyroid COVID-19 Maternal Aunt Diabetes Maternal Uncle Cancer Maternal Grandmother Cancer Brother Mental health disorder Social History Household Members: Spouse Housing: Apartment Are you a primary critical care paramedic to a significant other at home: No Do you presently have visiting nurse or other home services: Yes (phone visits) Alcohol intake: former Patient Tobacco Use Status: Never used Tobacco e-Cigarette/Vaping Use: Never Used Second Hand Smoke Exposure: No service: No Current occupational status: retired Cognitive needs: No Hearing needs: No Vision needs: No Female Reproductive History Menstrual Age of Menarche: 10 Review of Systems Const Denies fatigue, Denies fever(s), Denies night sweats, Denies poor appetite and Denies weight loss ENT Reports Normal hearing present, Denies dental pain, Denies dysphagia, Denies hearing loss, Denies mouth pain, Denies odynophagia, Denies throat swelling, Denies tongue swelling and Reports other (Dentition adequate) Card Reports no additional complaints Resp Reports no additional complaints GI Details: Denies abdominal pain, Denies melena, Reports bloating, Denies hematochezia, Denies constipation, Reports GI cramping, Denies dysphagia, Denies excessive flatus, Denies early satiety, Reports heartburn, Denies diarrhea, Denies nausea, Denies odynophagia, Denies vomiting and Denies hematemesis Musc Reports back pain, Reports myalgias, Reports arthralgias and Reports joint swelling Skin/Breast Denies pruritus, Denies lesions, Denies rash and Denies jaundice Neuro Reports Normal hearing present and Denies Abnormal speech present Endo Denies fatigue Aller/Immun Denies throat swelling and Denies tongue swelling Physical Exam Vital Signs: Last Vital Signs Pulse 57 05/01/24 13:23 BP 136/79 05/01/24 13:23 BMI result Body Mass Index 33.1 Const General: cooperative, no acute distress, well developed and well groomed Nutritional Appearance: well nourished and obese Orientation/consciousness: oriented to person, oriented to place and oriented to time Limitations: No language barrier HEENT Head: Yes normocephalic and Yes atraumatic Eyes General: appearance normal, both eyes and all related structures Pupils: Equal, round and reactive pupils present Neck Neck: Yes normal visual inspection and Yes no lymphadenopathy Thyroid: Thyroid normal Resp Effort & Inspection: normal respiratory effort and able to speak in complete sentences Auscultation: clear to auscultation bilaterally Cardio Rate: regular rate Rhythm: regular rhythm Heart sounds: Normal, physiologic split S2 sound present Peripheral pulses: radial pulses present and posterior tibial pulses present GI Inspection: No distended, No Abdominal panniculus present and Yes obesity Palpation (GI): Soft to palpation, nontender, no guarding, not rigid and No hepatosplenomegaly present Percussion: Yes normal to percussion Auscultation: normal bowel sounds Rectal Exam - Female: deferred Skin General skin exam: no rashes or lesions noted, turgor normal, skin not dry, no jaundice, No spider nevi and no striae Rashes: no rashes Nails: normal Neuro General: oriented to person, oriented to place and oriented to time Cranial nerves: Yes Equal, round and reactive pupils present and Yes Normal hearing present Speech: No Abnormal speech present Extrem General: Yes normal to inspection, No clubbing, No cyanosis and No edema Psych Appearance: grossly normal and well kempt Mental Status: mental status grossly normal Speech and movement: Normal speech and movement present Affect: normal affect Attitude: cooperative Thought process: Normal thought process present and not confabulating Thought content: Normal thought content present Insight: Limited insight present (Psych) Judgement: Limited judgement present (Psych) Assessment & Plan Assessment & Plan (1) GERD (gastroesophageal reflux disease): Code(s): K21.9 - Gastro-esophageal reflux disease without esophagitis Category: Medical Qualifiers: Esophagitis presence: esophagitis presence not specified Qualified Code(s): K21.9 - Gastro-esophageal reflux disease without esophagitis (2) Irritable bowel syndrome with both constipation and diarrhea: Comment: now more bile salt diarrhea since she is status post cholecystectomy Code(s): K58.2 - Mixed irritable bowel syndrome Category: Medical Plan She is having a lot of bloating and cramping and soft stool with incomplete evacuation. She has a new BP medication chlorthalidone for her general swelling as well. This may be why her stooling is changing. She is concerned that her weight is not dropping, but diuretics will not remove fat, or swelling r/t arthritis. Will start senna 1-2 and she can titrate it. She continues on her omeprazole and bentyl. ROV 8 weeks. Medications: New sennosides (Senna Laxative) 17.2 mg (2 x 8.6 mg) PO BEDTIME 60 tabs 6RF K58.2 - Mixed irritable bowel syndrome Refilled omeprazole 40 mg PO BID 180 caps 1RF K21.9 - Gastro-esophageal reflux disease without esophagitis dicyclomine 20 mg PO QID 120 tabs 6RF 30 days K58.2 - Mixed irritable bowel syndrome, R10.9 - Unspecified abdominal pain Coding Level of Care Code Est Pt Level 3 (18008) Diagnoses Gastroesophageal reflux disease, unspecified whether esophagitis present K21.9 Esophagitis presence: esophagitis presence not specified Irritable bowel syndrome with both constipation and diarrhea K58.2
[2024-05-01 13:23] VITALS: BP 136/79; PULSE 57; BMI 33.1
== END 2024-05-01 13:44 | disposition home or self-care (01) ==
PROVIDERS: PCP Internal Medicine; Visit Provider Nurse Practitioner
DX: K21.9 Gastro-esophageal reflux disease without esophagitis (principal); K58.2 Mixed irritable bowel syndrome
CPT/HCPCS: 99213

== ENCOUNTER 2024-06-26 11:38 | Outpatient (AMB) | payer OTHER, SELFPAY ==
--- NOTE | 2024-06-26 11:55 | MHC.OFFVIS ---
Vital Signs 06/26/24 12:27 Height 4 ft 10 in Weight 162 lb 4.163 oz BMI 33.9 Intake Visit Reasons: 8 week follow up Allergies seafood Allergy (Severe, Verified 05/01/24 13:31) Anaphylaxis vancomycin [VANCOMYCIN] Allergy (Severe, Verified 05/01/24 13:31) ANAPHYLAXIS, hives aspirin [ASPIRIN] Allergy (Intermediate, Verified 05/01/24 13:31) rash, asthma codeine [CODEINE] Allergy (Mild, Verified 05/01/24 13:31) rash egg [EGGS] Allergy (Mild, Verified 05/01/24 13:31) VOMITING peanut [PEANUTS] Allergy (Mild, Verified 05/01/24 13:31) HIVES,DIARRHEA amoxicillin [From Augmentin] Allergy (Verified 05/01/24 13:31) hives, swelling, difficulty breathing clavulanic acid [From Augmentin] Allergy (Verified 05/01/24 13:31) hives, swelling mushroom Allergy (Verified 05/01/24 13:31) Rash lactose Adverse Reaction (Intermediate, Verified 05/01/24 13:31) diarrhea HPI HPI 8 week follow up: Details: Assessment & Plan (1) GERD (gastroesophageal reflux disease): Code(s): K21.9 - Gastro-esophageal reflux disease without esophagitis Category: Medical Qualifiers: Esophagitis presence: esophagitis presence not specified Qualified Code(s): K21.9 - Gastro-esophageal reflux disease without esophagitis (2) Irritable bowel syndrome with both constipation and diarrhea: Comment: now more bile salt diarrhea since she is status post cholecystectomy Code(s): K58.2 - Mixed irritable bowel syndrome Category: Medical Plan She is having a lot of bloating and cramping and soft stool with incomplete evacuation. She has a new BP medication chlorthalidone for her general swelling as well. This may be why her stooling is changing. She is concerned that her weight is not dropping, but diuretics will not remove fat, or swelling r/t arthritis. Will start senna 1-2 and she can titrate it. She continues on her omeprazole and bentyl. ROV 8 weeks. Medications: New sennosides (Senna Laxative) 17.2 mg (2 x 8.6 mg) PO BEDTIME 60 tabs 6RF K58.2 - Mixed irritable bowel syndrome Refilled omeprazole 40 mg PO BID 180 caps 1RF K21.9 - Gastro-esophageal reflux disease without esophagitis dicyclomine 20 mg PO QID 120 tabs 6RF 30 days K58.2 - Mixed irritable bowel syndrome, R10.9 - Unspecified abdominal pain TODAY'S VISIT She did not tolerate the senna despite the lowest dose, even 1/2 a pill, w/o diarrhea. Yet she still has incomplete evacuation with soft stools. She will be seeing her BUILDING CLEANER soon and I ask her to ask them to eval to possible cystocele/rectocele. She has been having very sharp/sudden periumbilical pain like an electric shock. This is precipitated with bending and lifting or climbing stairs. She will have to lay very still and it will resolve after an hour, it is not described as colicky. She feels bloated and the buttons on her jeans will cause discomfort. She has bentyl but it does not help much with this pain. Will try MOM low dose, ordering US to eval for hernia. We did obtain a prior thoracic spine XR and it showed some scoliosis but no severe DJD that would indicate a radicular pain. It is interesting though that the pain is described as an electric shock which isn't totally consistent with bowel pathology. She is being worked up for a + NEHA. She has osteoporosis, but she was on once a year infusions that caused a lot of bone pain. I am uncertain if this infusion could have some relation to her abdominal pain as well. She continues on her omeprazole bid ROV 6 weeks. [facility] Medical History (Updated 06/26/24 @ 12:38 by SHYANN Manning) Abdominal bloating Acute diarrhea Physical exam COVID-19 Pulmonary embolism Pulmonary embolism Vaginal itching Hx of human papillomavirus infection Candidiasis of mouth and esophagus Abdominal cramping Pneumonia Bile salt-induced diarrhea History of pilonidal cyst Gastritis IBS (irritable bowel syndrome) Hypertension Pre-eclampsia Irritable bowel syndrome with both constipation and diarrhea Gallstones Surgical History H/O cervical polypectomy Hx of esophagogastroduodenoscopy H/O colonoscopy History of surgical removal of pilonidal cyst S/P tonsillectomy History of section History of cholecystectomy Family History Father Heart attack GERD (gastroesophageal reflux disease) Peptic ulcer disease Mother CHF (congestive heart failure) Afib Diverticulitis History of bowel resection Hypothyroid COVID-19 Maternal Aunt Diabetes Maternal Uncle Cancer Maternal Grandmother Cancer Brother Mental health disorder Social History Household Members: Spouse Housing: Apartment Are you a primary janitor caretaker to a significant other at home: No Do you presently have visiting nurse or other home services: Yes (phone visits) Alcohol intake: former Patient Tobacco Use Status: Never used Tobacco e-Cigarette/Vaping Use: Never Used Second Hand Smoke Exposure: No service: No Current occupational status: retired Cognitive needs: No Hearing needs: No Vision needs: No Female Reproductive History Menstrual Age of Menarche: 10 Review of Systems Const Denies fatigue, Denies fever(s), Denies night sweats, Denies poor appetite and Denies weight loss ENT Reports Normal hearing present, Denies dental pain, Denies dysphagia, Denies hearing loss, Denies mouth pain, Denies odynophagia, Denies throat swelling, Denies tongue swelling and Reports other (Dentition adequate) Card Reports no additional complaints Resp Reports no additional complaints GI Details: Reports abdominal pain, Denies melena, Reports bloating, Denies hematochezia, Reports constipation, Denies GI cramping, Denies dysphagia, Denies excessive flatus, Denies early satiety, Reports heartburn, Denies diarrhea, Denies nausea, Denies odynophagia, Denies vomiting and Denies hematemesis Musc Reports back pain, Reports myalgias and Reports arthralgias Skin/Breast Denies pruritus, Denies lesions, Denies rash and Denies jaundice Neuro Reports Normal hearing present and Denies Abnormal speech present Endo Denies fatigue Aller/Immun Denies throat swelling and Denies tongue swelling Physical Exam Vital Signs: BMI result Body Mass Index 33.9 Const General: cooperative, no acute distress, well developed and well groomed Nutritional Appearance: well nourished and obese Orientation/consciousness: oriented to person, oriented to place and oriented to time Limitations: No language barrier HEENT Head: Yes normocephalic and Yes atraumatic Eyes General: appearance normal, both eyes and all related structures Pupils: Equal, round and reactive pupils present Neck Neck: Yes normal visual inspection and Yes no lymphadenopathy Thyroid: Thyroid normal Resp Effort & Inspection: normal respiratory effort and able to speak in complete sentences Auscultation: clear to auscultation bilaterally Cardio Rate: regular rate Rhythm: regular rhythm Heart sounds: Normal, physiologic split S2 sound present Peripheral pulses: radial pulses present and posterior tibial pulses present GI Inspection: Yes distended, No Abdominal panniculus present and Yes obesity Palpation (GI): Soft to palpation, Tenderness to palpation present (GI) periumbilically, no guarding, not rigid and No hepatosplenomegaly present Percussion: Yes normal to percussion Auscultation: normal bowel sounds Rectal Exam - Female: deferred Skin General skin exam: no rashes or lesions noted, turgor normal, skin not dry, no jaundice, No spider nevi and no striae Rashes: no rashes Nails: normal Neuro General: oriented to person, oriented to place and oriented to time Cranial nerves: Yes Equal, round and reactive pupils present and Yes Normal hearing present Speech: No Abnormal speech present Extrem General: Yes normal to inspection, No clubbing, No cyanosis and No edema Psych Appearance: grossly normal and well kempt Mental Status: mental status grossly normal Speech and movement: Normal speech and movement present Affect: normal affect Attitude: cooperative Thought process: Normal thought process present and not confabulating Thought content: Normal thought content present Insight: Limited insight present (Psych) Judgement: Limited judgement present (Psych) Assessment & Plan Assessment & Plan (1) Periumbilical abdominal pain: Code(s): R10.33 - Periumbilical pain Category: Medical (2) GERD (gastroesophageal reflux disease): Code(s): K21.9 - Gastro-esophageal reflux disease without esophagitis Category: Medical Qualifiers: Esophagitis presence: esophagitis presence not specified Qualified Code(s): K21.9 - Gastro-esophageal reflux disease without esophagitis (3) Irritable bowel syndrome with both constipation and diarrhea: Comment: now more bile salt diarrhea since she is status post cholecystectomy Code(s): K58.2 - Mixed irritable bowel syndrome Category: Medical (4) Abdominal bloating: Code(s): R14.0 - Abdominal distension (gaseous) Category: Medical Plan She did not tolerate the senna despite the lowest dose, even 1/2 a pill, w/o diarrhea. Yet she still has incomplete evacuation with soft stools. She will be seeing her BUILDING CLEANER soon and I ask her to ask them to eval to possible cystocele/rectocele. She has been having very sharp/sudden periumbilical pain like an electric shock. This is precipitated with bending and lifting or climbing stairs. She will have to lay very still and it will resolve after an hour, it is not described as colicky. She feels bloated and the buttons on her jeans will cause discomfort. She has bentyl but it does not help much with this pain. Will try MOM low dose, ordering US to eval for hernia. We did obtain a prior thoracic spine XR and it showed some scoliosis but no severe DJD that would indicate a radicular pain. It is interesting though that the pain is described as an electric shock which isn't totally consistent with bowel pathology. She is being worked up for a + NEHA. She has osteoporosis, but she was on once a year infusions that caused a lot of bone pain. I am uncertain if this infusion could have some relation to her abdominal pain as well. She continues on her omeprazole bid ROV 6 weeks. Orders: Orders US abdomen complete Today R10.33 - Periumbilical pain, R14.0 - Abdominal distension (gaseous) Medications: New simethicone (Gas Relief (simethicone)) 125 mg PO QID 120 tabs 6RF abdominal distention R10.33 - Periumbilical pain, R14.0 - Abdominal distension (gaseous) magnesium hydroxide (Milk of Magnesia) 10 mL PO BEDTIME 3,780 mL 3RF K58.2 - Mixed irritable bowel syndrome simethicone (Gas Relief (simethicone)) 125 mg PO QID 120 tabs 6RF abdominal distention R10.33 - Periumbilical pain, R14.0 - Abdominal distension (gaseous) magnesium hydroxide (Milk of Magnesia) 10 mL PO BEDTIME 3,780 mL 3RF K58.2 - Mixed irritable bowel syndrome Refilled omeprazole 40 mg PO BID 180 caps 1RF K21.9 - Gastro-esophageal reflux disease without esophagitis Discontinued sennosides (Senna Laxative) Discontinued Reason: Doctor's Order 17.2 mg (2 x 8.6 mg) PO BEDTIME 60 tabs 6RF K58.2 - Mixed irritable bowel syndrome Coding Level of Care Code Est Pt Level 4 (64262) Diagnoses Periumbilical abdominal pain R10.33 Gastroesophageal reflux disease, unspecified whether esophagitis present K21.9 Esophagitis presence: esophagitis presence not specified Irritable bowel syndrome with both constipation and diarrhea K58.2 Abdominal bloating R14.0 Time Spent (min) 33
[2024-06-26 12:27] VITALS: BMI 33.9
== END 2024-06-26 12:53 | disposition home or self-care (01) ==
PROVIDERS: PCP Internal Medicine; Visit Provider Nurse Practitioner
DX: R10.33 Periumbilical pain (principal); K21.9 Gastro-esophageal reflux disease without esophagitis; K58.2 Mixed irritable bowel syndrome; R14.0 Abdominal distension (gaseous)
CPT/HCPCS: 99214

== ENCOUNTER → 2024-06-26 11:38 | Outpatient (BNVA) | payer OTHER, SELFPAY | PROVIDERS: PCP Internal Medicine; Visit Provider Nurse Practitioner | DX: R10.33 Periumbilical pain (principal); K21.9 Gastro-esophageal reflux disease without esophagitis; K58.2 Mixed irritable bowel syndrome; R14.0 Abdominal distension (gaseous) | CPT/HCPCS: 99212 ==

== ENCOUNTER 2024-07-09 09:28 | Outpatient (REF) | payer OTHER, SELFPAY ==
--- NOTE | ~2024-07-09 | US_ITS ---
EXAMINATION: US soft tissue anterior abdomen CLINICAL INFORMATION: Palpable lump, pain COMPARISON: None available at the time of this dictation. TECHNIQUE: High-frequency linear transducer ultrasound utilized, area of interest scanned, area of interest paraumbilical region FINDINGS: No ultrasound evidence of soft tissue mass, cyst or abscess, or abnormal distortion. US/US abdomen limited IMPRESSION: Unremarkable ultrasound. No ultrasound evidence of the hernia. *Ultrasound has limited sensitivity detecting some of the solid soft tissue lesions; if signs and/or symptoms persist, cross-sectional imaging, preferably MRI with IV contrast, recommended. Electronically signed by: Susan Patricio MD 08/03/2024 05:27 PM [facility]MAN
== END 2024-07-09 09:29 | disposition home or self-care (01) ==
LOC: HO.US 09:28
PROVIDERS: PCP Internal Medicine; Visit Provider Nurse Practitioner
DX: R10.33 Periumbilical pain (principal); R14.0 Abdominal distension (gaseous)
CPT/HCPCS: 76705

== ENCOUNTER 2024-07-15 12:49 | Outpatient (AMB) | payer OTHER, SELFPAY ==
[2024-07-15 12:52] VITALS: BP 132/67; PULSE 66; O2SAT 100; BMI 34.1
--- NOTE | 2024-07-15 12:52 | A.OFFVIS_ITS ---
Vital Signs 07/15/24 12:52 Height 4 ft 10 in Weight 163 lb BMI 34.1 BP 132/67 Blood Pressure Location Rt brachial Position Sitting Pulse 66 Pulse Source Doppler Pulse Oximetry (%) 100 Oxygen Delivery Method Room Air Intake Visit Reasons: Post Covid Allergies seafood Allergy (Severe, Verified 07/15/24 12:58) Anaphylaxis vancomycin [VANCOMYCIN] Allergy (Severe, Verified 07/15/24 12:58) ANAPHYLAXIS, hives aspirin [ASPIRIN] Allergy (Intermediate, Verified 07/15/24 12:58) rash, asthma codeine [CODEINE] Allergy (Mild, Verified 07/15/24 12:58) rash egg [EGGS] Allergy (Mild, Verified 07/15/24 12:58) VOMITING peanut [PEANUTS] Allergy (Mild, Verified 07/15/24 12:58) HIVES,DIARRHEA amoxicillin [From Augmentin] Allergy (Verified 07/15/24 12:58) hives, swelling, difficulty breathing clavulanic acid [From Augmentin] Allergy (Verified 07/15/24 12:58) hives, swelling mushroom Allergy (Verified 07/15/24 12:58) Rash lactose Adverse Reaction (Intermediate, Verified 07/15/24 12:58) diarrhea HPI HPI Post Covid: Details: 63-year-old lady, lifetime nonsmoker, followed for severe persistent asthma, environmental allergies, and post COVID-19 syndrome.? Patient was not able to tolerate immunologic therapy for her asthma including Fasenra and Xolair, but had good response with Dupixent. She also has had significant side effects after COVID vaccines.? She continues to use his Symbicort and albuterol MDI.? She denies any recent exacerbations. Her respiratory symptoms continue to be well c ontrolled at this time. Patient does continue to complain of muscle weakness, weight gain, dry skin. She has been evaluated by Rheumatology with no evidence of underlying myositis or dermatomyositis. [facility] Medical History (Updated 06/26/24 @ 12:38 by SHYANN Manning) Abdominal bloating Acute diarrhea Physical exam COVID-19 Pulmonary embolism Pulmonary embolism Vaginal itching Hx of human papillomavirus infection Candidiasis of mouth and esophagus Abdominal cramping Pneumonia Bile salt-induced diarrhea History of pilonidal cyst Gastritis IBS (irritable bowel syndrome) Hypertension Pre-eclampsia Irritable bowel syndrome with both constipation and diarrhea Gallstones Surgical History H/O cervical polypectomy Hx of esophagogastroduodenoscopy H/O colonoscopy History of surgical removal of pilonidal cyst S/P tonsillectomy History of section History of cholecystectomy Family History Father Heart attack GERD (gastroesophageal reflux disease) Peptic ulcer disease Mother CHF (congestive heart failure) Afib Diverticulitis History of bowel resection Hypothyroid COVID-19 Maternal Aunt Diabetes Maternal Uncle Cancer Maternal Grandmother Cancer Brother Mental health disorder Social History Household Members: Spouse Housing: Apartment Are you a primary healthcare administrative assistant to a significant other at home: No Do you presently have visiting nurse or other home services: Yes (phone visits) Alcohol intake: former Patient Tobacco Use Status: Never used Tobacco e-Cigarette/Vaping Use: Never Used Second Hand Smoke Exposure: No service: No Current occupational status: retired Cognitive needs: No Hearing needs: No Vision needs: No Female Reproductive History Menstrual Age of Menarche: 10 Review of Systems Const Denies daytime sleepiness, Denies excessive sweating, Reports fatigue, Denies fever(s), Reports lethargy, Denies malaise, Denies night sweats, Denies snoring and Denies weight loss Eyes Denies blurry vision and Denies itchy eyes ENT Denies nasal congestion, Denies post nasal drip, Denies sinus pain, Denies sinus pressure and Denies other ( Thrush) Card Denies chest pain, Denies pedal edema, Denies dyspnea, Denies orthopnea and Denies paroxysmal nocturnal dyspnea Resp Denies cough, Denies hemoptysis, Denies excessive phlegm production, Denies dyspnea, Denies snoring and Denies wheezing GI Denies abdominal pain and Denies heartburn Musc Denies myalgias, Denies arthralgias and Denies joint swelling Skin/Breast Denies rash Neuro Denies memory loss and Denies seizure-like activity Psych Denies abnormal sleep pattern, Denies anxiety and Denies memory loss Endo Denies excessive sweating, Reports fatigue and Denies heat intolerance Migue/Lymph Denies easy bruising Aller/Immun Denies itchy eyes, Denies seasonal rhinorrhea and Denies wheezing Physical Exam Vital Signs: Last Vital Signs Pulse 66 07/15/24 12:52 BP 132/67 07/15/24 12:52 Pulse Ox 100 07/15/24 12:52 Oxygen Delivery Method Room Air 07/15/24 12:52 BMI result Body Mass Index 34.1 Const General: no acute distress and alert Nutritional Appearance: obese Orientation/consciousness: Other orientation findings ( oriented) HEENT Head: Yes atraumatic Eyes General: appearance normal, both eyes and all related structures Sclerae: sclerae normal EOM: EOMs intact bilaterally Neck Neck: Yes supple Lymphatic: no lymphadenopathy noted Resp Effort & Inspection: normal respiratory effort and no use of accessory muscles Auscultation: clear to auscultation bilaterally Cardio Rate: regular rate Rhythm: regular rhythm Heart sounds: no gallops, no murmurs and no rubs Skin General skin exam: other ( warm) Extrem General: No clubbing, No cyanosis and No edema Assessment & Plan Assessment & Plan (1) Asthma: Code(s): J45.909 - Unspecified asthma, uncomplicated Category: Medical Qualifiers: Asthma severity: moderate Asthma persistence: persistent Asthma complication type: uncomplicated Qualified Code(s): J45.40 - Moderate persistent asthma, uncomplicated Plan: Well controlled on Dupixent, Symbicort, and albuterol MDI/nebs. Continue current regimen. (2) Environmental allergies: Code(s): Z91.09 - Other allergy status, other than to drugs and biological substances Category: Medical Plan: Well controlled on Dupixent. Continue current regimen. Orders: Orders TSH reflex Free T4 Today R76.8 - Other specified abnormal immunological findings in serum Coding Level of Care Code Est Pt Level 4 (64095) Diagnoses Moderate persistent asthma without complication J45.40 Asthma severity: moderate Asthma persistence: persistent Asthma complication type: uncomplicated Environmental allergies Z91.09
== END 2024-07-15 13:25 | disposition home or self-care (01) ==
LOC: HO.HPS 12:49
PROVIDERS: PCP Internal Medicine; Visit Provider Internal Medicine Pulmonary Disease
DX: J45.40 Moderate persistent asthma, uncomplicated (principal); Z91.09 Other allergy status, other than to drugs and biological substances
CPT/HCPCS: 99214

== ENCOUNTER → 2024-07-15 12:49 | Outpatient (BNVA) | payer OTHER, SELFPAY | PROVIDERS: PCP Internal Medicine; Visit Provider Internal Medicine Pulmonary Disease | DX: J45.50 Severe persistent asthma, uncomplicated (principal); R76.8 Other specified abnormal immunological findings in serum; Z86.16 Personal history of COVID-19; Z91.09 Other allergy status, other than to drugs and biological substances; Z79.899 Other long term (current) drug therapy | CPT/HCPCS: 99212 ==

== ENCOUNTER 2024-07-24 11:00 | Outpatient (REF) | payer OTHER, SELFPAY ==
[2024-07-24 12:41] LABS: TSH reflex Free T4 2.12 uIU/mL (0.32-4.0)
== END 2024-07-24 11:01 | disposition home or self-care (01) ==
LOC: HO.LAB 11:00
PROVIDERS: PCP Internal Medicine; Visit Provider Internal Medicine Pulmonary Disease
DX: R76.8 Other specified abnormal immunological findings in serum (principal)
CPT/HCPCS: 36415; 84443

== ENCOUNTER 2024-08-06 13:03 | Outpatient (AMB) | payer OTHER, SELFPAY ==
[2024-08-06 13:13] VITALS: BP 136/80; BMI 34.1
--- NOTE | 2024-08-06 13:13 | MHC.PC.OV ---
Vital Signs 08/06/24 13:13 Height 4 ft 10 in Weight 163 lb BMI 34.1 BP 136/80 Blood Pressure Location Lt brachial Position Sitting Intake Visit Reasons: bp Intake Note: Patient here for a follow up BP Dukey Rider Required: No Accompanied by: Self / Same As Patient Allergies seafood Allergy (Severe, Verified 08/06/24 13:39) Anaphylaxis vancomycin [VANCOMYCIN] Allergy (Severe, Verified 08/06/24 13:39) ANAPHYLAXIS, hives aspirin [ASPIRIN] Allergy (Intermediate, Verified 08/06/24 13:39) rash, asthma codeine [CODEINE] Allergy (Mild, Verified 08/06/24 13:39) rash egg [EGGS] Allergy (Mild, Verified 08/06/24 13:39) VOMITING peanut [PEANUTS] Allergy (Mild, Verified 08/06/24 13:39) HIVES,DIARRHEA amoxicillin [From Augmentin] Allergy (Verified 08/06/24 13:39) hives, swelling, difficulty breathing clavulanic acid [From Augmentin] Allergy (Verified 08/06/24 13:39) hives, swelling mushroom Allergy (Verified 08/06/24 13:39) Rash lactose Adverse Reaction (Intermediate, Verified 08/06/24 13:39) diarrhea Medication List - Last Reconciled 08/06/24 by Iqra Lawrence MD acetaminophen (Tylenol Extra Strength) 500 mg PO Q6H PRN 30 days albuterol sulfate 90 mcg/actuation 90 mcg inhalation DAILY albuterol sulfate 2.5 mg inhalation TID PRN calcium carbonate 600 mg PO BID chlorthalidone 25 mg PO DAILY 90 days dicyclomine 20 mg PO QID 30 days dupilumab (Dupixent) 200 mg (1.14 mL) subcut Q2W ergocalciferol (vitamin D2) 1,250 mcg PO QWEEK estradiol 0.01%(0.1mg/gram) 1 g vaginal DAILY 30 days fluoxetine 20 mg PO DAILY hydroxyzine HCl 10 - 20 mg PO Q6H PRN lisinopril 40 mg PO DAILY 90 days lorazepam 1 mg PO DAILY PRN magnesium hydroxide (Milk of Magnesia) 10 mL PO BEDTIME melatonin 3 mg PO BEDTIME omeprazole 40 mg PO BID ondansetron 4 mg PO Q8H PRN 7 days simethicone (Gas Relief (simethicone)) 125 mg PO QID sumatriptan succinate 50 mg PO DAILY PRN Symbicort 160-4.5 mcg/actuation (budesonide-formoterol) 2 puffs PO BID NS trazodone 100 mg PO DAILY Tobacco use date assessed: 11/21/23 Dental Screening Dental Screen Date: 08/06/24 Did you have a dental visit in the last 12 months?: No Did you have a dental problem in the last 6 months where you did not have access to dental care?: No Was dental information given to patient?: Patient has dentist HPI HPI Comments History of Present Illness Details The patient is a 63-year-old female presenting with concerns related to weight management and hypertension. She has a history of essential hypertension, for which she is currently on lisinopril 40 mg and chlorthalidone. Despite engaging in regular physical activities such as walking and stair climbing, she expresses ongoing concern about her weight. Her dietary intake includes toast with butter and tea for breakfast and an early dinner, around 4 PM. The patient also has a history of migraines, depression (managed with fluoxetine 20 mg and lorazepam as needed), and insomnia, for which trazodone and melatonin are used as required. 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 She manages dietary intake to control symptoms associated with GERD. 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 She has reported allergic rhinitis, but she denies any recent symptoms. No allergies to Tylenol or albuterol were noted. She has noticed some memory loss and labs will be ordered. [facility] Medical History (Updated 08/06/24 @ 13:55 by Iqra Lawrence MD) Abdominal bloating Acute diarrhea Physical exam COVID-19 Pulmonary embolism Pulmonary embolism Vaginal itching Hx of human papillomavirus infection Candidiasis of mouth and esophagus Abdominal cramping Pneumonia Bile salt-induced diarrhea History of pilonidal cyst Gastritis IBS (irritable bowel syndrome) Hypertension Pre-eclampsia Irritable bowel syndrome with both constipation and diarrhea Gallstones Surgical History H/O cervical polypectomy Hx of esophagogastroduodenoscopy H/O colonoscopy History of surgical removal of pilonidal cyst S/P tonsillectomy History of section History of cholecystectomy Family History Father Heart attack GERD (gastroesophageal reflux disease) Peptic ulcer disease Mother CHF (congestive heart failure) Afib Diverticulitis History of bowel resection Hypothyroid COVID-19 Maternal Aunt Diabetes Maternal Uncle Cancer Maternal Grandmother Cancer Brother Mental health disorder Social History Household Members: Spouse Housing: Apartment Are you a primary long term care administrator to a significant other at home: No Do you presently have visiting nurse or other home services: Yes (phone visits) Alcohol intake: former Patient Tobacco Use Status: Never used Tobacco e-Cigarette/Vaping Use: Never Used Second Hand Smoke Exposure: No service: No Current occupational status: retired Cognitive needs: No Hearing needs: No Vision needs: No Female Reproductive History Menstrual Age of Menarche: 10 Questionnaire Thrive Questionnaire Date Thrive assessed: 11/21/23 JESSICA-7 AMB Questionnaire JESSICA-7 Date JESSICA - 7 assessed: 11/21/23 Source: Developed by Drs. Mehran Win, Maddy Rapp, Toni Dorantes and colleagues, with an educational cody from [employer]. Review of Systems Const All systems reviewed & are unremarkable except as noted in HPI and below Card Denies chest pain at rest, Denies chest pain with activity, Denies edema, Denies irregular heart rhythm, Denies claudication, Denies dyspnea, Denies dyspnea on exertion, Denies orthopnea, Denies paroxysmal nocturnal dyspnea and Denies slow heart rate Resp Denies cough, Denies dyspnea and Denies dyspnea on exertion GI Denies abdominal pain, Denies change in bowel habits, Denies excessive flatus, Denies nausea and Denies vomiting Neuro Denies behavioral changes and Denies lack of coordination Psych Denies behavioral changes Physical exam (Primary Care) Vital Signs: Last Vital Signs BP 136/80 08/06/24 13:13 BMI result Body Mass Index 34.1 BMI Assessment/Plan discussion: High BMI High, discussed plan: lifestyle, weight reduction, dietary and physical activity Tobacco/Smoking Status: Tobacco use Status Tobacco use date assessed 11/21/23 08/06/24 13:18 Patient Tobacco Use Status Never used Tobacco 08/06/24 13:18 e-Cigarette/Vaping Use Never Used 08/06/24 13:18 Thrive Assessment: Date of Thrive Assessment Date Thrive assessed 11/21/23 08/06/24 13:18 Resp Effort & Inspection: normal respiratory effort Auscultation: clear to auscultation bilaterally Cardio Jugular venous distension: no JVD Rate: regular rate Rhythm: regular rhythm Heart sounds: S1 normal heart sound present and S2 normal heart sound present Extrem General: Yes full ROM Office Procedures Flu Questionnaire Does the patient have a severe egg allergy?: No Immunizations Fluarix Triv [id number] (PF) 45 mcg (15 mcg x 3)/0.5 mL IM syringe Performing Provider: Iqra Lawrence MD [place] [facility] [place] Documented (not given) by: FLORIDA Caballero on 08/06/24 13:19 Reason Not Given: Patient Refused Coding Level of Care Code Est Pt Level 4 (33607) Complex EM visit Add On G2211 Diagnoses Mild major depression F32.0 HTN (hypertension), benign I10 Gastroesophageal reflux disease, unspecified whether esophagitis present K21.9 Esophagitis presence: esophagitis presence not specified Memory loss R41.3 Migraines G43.909 Time Spent (min) 23 Assessment & Plan Assessment & Plan (1) Mild major depression: Comment: Follows with psychiatry Code(s): F32.0 - Major depressive disorder, single episode, mild Category: Medical (2) HTN (hypertension), benign: Code(s): I10 - Essential (primary) hypertension Category: Medical (3) GERD (gastroesophageal reflux disease): Code(s): K21.9 - Gastro-esophageal reflux disease without esophagitis Category: Medical Qualifiers: Esophagitis presence: esophagitis presence not specified Qualified Code(s): K21.9 - Gastro-esophageal reflux disease without esophagitis (4) Memory loss: Code(s): R41.3 - Other amnesia Category: Medical (5) Migraines: Code(s): G43.909 - Migraine, unspecified, not intractable, without status migrainosus Category: Medical Plan - Continue current antihypertensive therapy with lisinopril and chlorthalidone and monitor blood pressure for trends. - Reinforce dietary modifications to promote weight loss, including substitution of protein shakes for high-carbohydrate breakfast options. Monitor weight regularly. - Advise continuation of current regimen for migraine management with sumatriptan as needed. - For insomnia, maintain current management with trazodone and melatonin as required and assess efficacy. - Monitor patient's depression and ensure adherence to fluoxetine regimen; evaluate for need for ongoing psychiatric consultation. - Encourage exercise and physical activity while reviewing safety and comfort with exercise routine. - Advise on the use of lactase supplements to manage symptoms of lactose intolerance. - Confirm continued avoidance of known allergens to prevent anaphylactic and cutaneous reactions. Patient was informed and verbally consented to the use of an ambient scribe for clinic note documentation during this visit. Orders: Orders Comprehensive Lapaz. Panel Fast Today I10 - Essential (primary) hypertension Lipid Panel Today E78.5 - Hyperlipidemia, unspecified, I10 - Essential (primary) hypertension IQRA Reflex Titer and Pattern Today R76.8 - Other specified abnormal immunological findings in serum Influenza [id number] Immunization Today Z23 - Encounter for immunization Cyclic Citrullinated Peptide Today R76.8 - Other specified abnormal immunological findings in serum Anti DNA DS Antibody Today R76.8 - Other specified abnormal immunological findings in serum Rheumatoid Factor Today R76.8 - Other specified abnormal immunological findings in serum Thyroid Stimulating Hormone Today R41.3 - Other amnesia Vitamin B12 and Folate Today R41.3 - Other amnesia Vitamin D 25-OH Total Today E55.9 - Vitamin D deficiency, unspecified, R76.8 - Other specified abnormal immunological findings in serum Medications: Discontinued simethicone (Gas Relief (simethicone)) Discontinued Reason: Patient no longer taking 125 mg PO QID 120 tabs 6RF abdominal distention R10.33 - Periumbilical pain, R14.0 - Abdominal distension (gaseous) Patient Instructions: - Continue the current regimen of lisinopril and chlorthalidone for blood pressure management. - Follow dietary recommendations to replace high carbohydrate meals with high protein alternatives to aid weight loss. - Engage in regular physical activity, such as brisk walking or stair climbing, at least five times a week. - Avoid consuming known allergens, and carry emergency medications for anaphylaxis as prescribed. - Monitor symptoms related to GERD and lactose intolerance, adjusting diet and medications as necessary. - Take medications for depression and migraine prophylaxis as prescribed, and follow up with psychiatry as needed. - Report any significant changes in symptoms, adherence issues, or adverse effects from medications as soon as possible. - Schedule regular follow-up appointments to track progress with weight management and hypertension control.
== END 2024-08-06 13:51 | disposition home or self-care (01) ==
PROVIDERS: PCP Internal Medicine; Visit Provider Internal Medicine
DX: F32.0 Major depressive disorder, single episode, mild (principal); I10 Essential (primary) hypertension; K21.9 Gastro-esophageal reflux disease without esophagitis; R41.3 Other amnesia; G43.909 Migraine, unspecified, not intractable, without status migrainosus; Z23 Encounter for immunization

== ENCOUNTER → 2024-08-06 13:03 | Outpatient (BNVA) | payer OTHER, SELFPAY | PROVIDERS: PCP Internal Medicine; Visit Provider Internal Medicine | DX: F32.0 Major depressive disorder, single episode, mild (principal); I10 Essential (primary) hypertension; K21.9 Gastro-esophageal reflux disease without esophagitis; R41.3 Other amnesia; G43.909 Migraine, unspecified, not intractable, without status migrainosus | CPT/HCPCS: 90471; 99212 ==

== ENCOUNTER 2024-08-19 12:26 | Outpatient (AMB) | payer OTHER, SELFPAY ==
[2024-08-19 13:03] VITALS: BP 122/64; PULSE 66; O2SAT 100; BMI 34.3
--- NOTE | 2024-08-19 13:03 | A.OFFVIS_ITS ---
Vital Signs 08/19/24 13:03 Height 4 ft 10 in Weight 164 lb BMI 34.3 BP 122/64 Blood Pressure Location Rt brachial Position Sitting Pulse 66 Pulse Source Doppler Pulse Oximetry (%) 100 Oxygen Delivery Method Room Air Intake Visit Reasons: asthma/copd Allergies seafood Allergy (Severe, Verified 08/06/24 13:39) Anaphylaxis vancomycin [VANCOMYCIN] Allergy (Severe, Verified 08/06/24 13:39) ANAPHYLAXIS, hives aspirin [ASPIRIN] Allergy (Intermediate, Verified 08/06/24 13:39) rash, asthma codeine [CODEINE] Allergy (Mild, Verified 08/06/24 13:39) rash egg [EGGS] Allergy (Mild, Verified 08/06/24 13:39) VOMITING peanut [PEANUTS] Allergy (Mild, Verified 08/06/24 13:39) HIVES,DIARRHEA amoxicillin [From Augmentin] Allergy (Verified 08/06/24 13:39) hives, swelling, difficulty breathing clavulanic acid [From Augmentin] Allergy (Verified 08/06/24 13:39) hives, swelling mushroom Allergy (Verified 08/06/24 13:39) Rash lactose Adverse Reaction (Intermediate, Verified 08/06/24 13:39) diarrhea HPI HPI asthma/copd: Details: 63-year-old lady, lifetime nonsmoker, followed for severe persistent asthma, environmental allergies, and post COVID-19 syndrome.? Patient was not able to tolerate immunologic therapy for her asthma including Fasenra and Xolair, but had good response with Dupixent. She also has had significant side effects after COVID vaccines.? She continues on Dupixent, Symbicort, and albuterol MDI with good control of her symptoms. She denies recent exacerbations. She does co mplain of unrestful sleeping and snoring and is interested in sleep apnea workup. [facility] Medical History Abdominal bloating Acute diarrhea Physical exam COVID-19 Pulmonary embolism Pulmonary embolism Vaginal itching Hx of human papillomavirus infection Candidiasis of mouth and esophagus Abdominal cramping Pneumonia Bile salt-induced diarrhea History of pilonidal cyst Gastritis IBS (irritable bowel syndrome) Hypertension Pre-eclampsia Irritable bowel syndrome with both constipation and diarrhea Gallstones Surgical History H/O cervical polypectomy Hx of esophagogastroduodenoscopy H/O colonoscopy History of surgical removal of pilonidal cyst S/P tonsillectomy History of section History of cholecystectomy Family History Father Heart attack GERD (gastroesophageal reflux disease) Peptic ulcer disease Mother CHF (congestive heart failure) Afib Diverticulitis History of bowel resection Hypothyroid COVID-19 Maternal Aunt Diabetes Maternal Uncle Cancer Maternal Grandmother Cancer Brother Mental health disorder Social History Household Members: Spouse Housing: Apartment Are you a primary home care provider to a significant other at home: No Do you presently have visiting nurse or other home services: Yes (phone visits) Alcohol intake: former Patient Tobacco Use Status: Never used Tobacco e-Cigarette/Vaping Use: Never Used Second Hand Smoke Exposure: No service: No Current occupational status: retired Cognitive needs: No Hearing needs: No Vision needs: No Female Reproductive History Menstrual Age of Menarche: 10 Review of Systems Const Reports daytime sleepiness, Denies excessive sweating, Denies fatigue, Denies fever(s), Reports lethargy, Denies malaise, Denies night sweats, Reports snoring and Denies weight loss Eyes Denies blurry vision and Denies itchy eyes ENT Denies nasal congestion, Denies post nasal drip, Denies sinus pain, Denies sinus pressure and Denies other ( Thrush) Card Denies chest pain, Denies pedal edema, Denies dyspnea, Denies orthopnea and Denies paroxysmal nocturnal dyspnea Resp Denies cough, Denies hemoptysis, Denies excessive phlegm production, Denies dyspnea, Reports snoring and Denies wheezing GI Denies abdominal pain and Denies heartburn Musc Denies myalgias, Denies arthralgias and Denies joint swelling Skin/Breast Denies rash Neuro Denies memory loss and Denies seizure-like activity Psych Denies abnormal sleep pattern, Denies anxiety and Denies memory loss Endo Denies excessive sweating, Denies fatigue and Denies heat intolerance Migue/Lymph Denies easy bruising Aller/Immun Denies itchy eyes, Denies seasonal rhinorrhea and Denies wheezing Physical Exam Vital Signs: Last Vital Signs Pulse 66 08/19/24 13:03 BP 122/64 08/19/24 13:03 Pulse Ox 100 08/19/24 13:03 Oxygen Delivery Method Room Air 08/19/24 13:03 BMI result Body Mass Index 34.3 Const General: no acute distress and alert Nutritional Appearance: obese Orientation/consciousness: Other orientation findings ( oriented) HEENT Head: Yes atraumatic Eyes General: appearance normal, both eyes and all related structures Sclerae: sclerae normal EOM: EOMs intact bilaterally Neck Neck: Yes supple Lymphatic: no lymphadenopathy noted Resp Effort & Inspection: normal respiratory effort and no use of accessory muscles Auscultation: clear to auscultation bilaterally Cardio Rate: regular rate Rhythm: regular rhythm Heart sounds: no gallops, no murmurs and no rubs Skin General skin exam: other ( warm) Extrem General: No clubbing, No cyanosis and No edema Assessment & Plan Assessment & Plan (1) Asthma: Code(s): J45.909 - Unspecified asthma, uncomplicated Category: Medical Qualifiers: Asthma severity: moderate Asthma persistence: persistent Asthma complication type: uncomplicated Qualified Code(s): J45.40 - Moderate persistent asthma, uncomplicated Plan: Well controlled on Dupixent, Symbicort and albuterol MDI/nebs. Continue current regimen. (2) YESSICA (obstructive sleep apnea): Code(s): G47.33 - Obstructive sleep apnea (adult) (pediatric) Category: Medical Plan: Unrestful sleep, daytime sleepiness, snoring. [place] Sleepiness Scale score of 14. Will obtain home sleep study. (3) Environmental allergies: Code(s): Z91.09 - Other allergy status, other than to drugs and biological substances Category: Medical Plan: Well controlled on Dupixent. Continue current regimen. Orders: Orders RT home sleep study Today G47.33 - Obstructive sleep apnea (adult) (pediatric) Coding Level of Care Code Est Pt Level 4 (54912) Complex EM visit Add On G2211 Diagnoses Moderate persistent asthma without complication J45.40 Asthma severity: moderate Asthma persistence: persistent Asthma complication type: uncomplicated YESSICA (obstructive sleep apnea) G47.33 Environmental allergies Z91.09
--- OUTSIDE RECORDS SUMMARY | 2024-08-26 13:43 | XMS_ITS | Data Portability ---
Author Organization [place] [facility], Allergy Address [address] [place] [phone] Assessment Encounter Date Assessment Date Assessment LastModified by Organization Details LastModified Time 04/21/2024 04/21/2024 63-year-old female with a history of allergic rhinitis presents today for evaluation of her ears, with recurrent infections, tinnitus, and decreased hearing. There is no evidence of infection today. We reviewed aural hygiene. I recommended trying DermOtic oil as needed for the pruritus. I did drug abuse counselor her that a nasal steroid such as fluticasone can help with eustachian tube functioning, I did send this in. We reviewed her audiogram which showed a moderate high-frequency loss. She is a borderline candidate for amplification. Hearing is fairly symmetric. I would recommend repeat audiogram in about a year. [email or web address] Not available 04/28/2024 08:02:47 Plan of Treatment Reminders Order Date Submit Date Provider Last Modified By Organization Details Last Modified Time Details Appointments None recorded. Lab None recorded. Referral None recorded. Procedures None recorded. Surgeries None recorded. Imaging None recorded. Medication Orders Flonase Allergy Relief 50 mcg/actua tion nasal spray,viet pension 2023 024 CORINE [id number], [address] [place], [address], 15:52:39 DermOtic Oil 0.01 % ear drops 2023 024 [email or web address] [id number], [address] [place], [address], 12:15:29 Patient TargetsNo targets recorded. Patient InstructionsNo instructions recorded. Reason for Referral None Reported. Results Created Date Observation Date Name Description Value Unit Range Abnormal Flag Note LastModifiedBy Organization Detail LastModifiedTime 04/21/20 24 audio gram No observ ation record ed. BARCODE Not Available 2023 16:02:45 04/22/20 24 audio gram No observ ation record ed. [email or web address] Not Available 02/2024 11:00:30 Result Notes None recorded. Problems Name Problem SNOMED Code Status Onset Date Resolution Date Notes Provider Name and Address Organization Details Recorded Time Sensorineural hearing loss of bilateral ears 727107215 Active 2023 GREER D[place]AS [address] [place] [address], [place], [phone], [place] - [facility] 13:52:52 Allergic rhinitis 58995464 Active 2023 ESTELA MONROE MD [address] [place] [address], [phone], [place] - [facility] 15:50:03 Pruritic disorder 933946322 Active 2023 ESTELA MONROE MD [address] [place] [address], [phone], [facility] - [facility] 15:50:09 Pruritic disorder of skin Active 2023 ESTELA MONROE MD [address] [place] [address], [place], [phone], [facility] - [facility] 15:52:00 Problem Notes None recorded. Procedures Surgical History Date Name Laterality Status Provider Name and Address Organization Details Recorded Time 04/21/20 24 Comp Audio with Tymps (85520 & 57205) completed GREER DALLAS [address] [facility],[address], [phone], [facility] - [facility] 04/21/2024 13:52:45 tonsillectomy completed ESTELA MONROE MD [address] [place] [address],[address], [address], [place] - [facility] 04/28/2024 07:58:20 section completed ESTELA MONROE MD [address] [place] [address], [place], [phone], [place] [facility] 04/28/2024 07:58:28 Imaging Results Imaging Date Name Status LastModified by Organiz ation Details LastModified Time 04/21/2024 audiogram completed BARCODE Information no t available 04/21/2024 16:02:45 04/22/2024 audiogram completed [email or web address] Information not available 04/22/2024 11:00:30 Procedure Notes None recorded. Medical Equipment None Reported. Allergies Allergen ID Allergen Name Allergen Category Reaction Reaction Severity Criticality Documentation Date Start Date Code Code System Note Provider Name and Address Organization Details Recorded Time 497244 aspirin medicatio n Not available Not available Not available 04/21/2024 1191 RxNorm Sabi paige [facility] 13:44:51 276226 amoxicill in medicatio n Not available Not available Not available 04/21/2024 723 RxNorm Sabi Rudi paige [facility] 4 13:45:02 822338 cultivate d mushroom extract food Not available Not available Not available 04/21/2024 54229 17 RxNorm Sabi Rudi paige [facility] 4 13:45:09 Medications Name Sig Start Date Stop Date Status Note LastModified by Organization Details LastModified Time neomycin-po lymyxin-hyd rocort 3.5 mg/mL-10,00 0 unit/mL-1 % ear solution APPLY 3 DROPS IN THE LEFT EAR THREE TIMES DAILY FOR 5 DAYS 04/21 completed Not Available Not Available Not Available clonidine HCl 0.1 mg tablet TAKE 1 TABLET BY MOUTH ONCE A DAY NEEDED FOR SYMPTOMS OF AGITATION , NEEDED active Not Available Not Available No t Available albuterol sulfate 2.5 mg/3 mL (0.083 %) solution for nebulizatio n INHALE 1 AMPULE USING A NEBULIZER EVERY 6 HOURS NEEDED FOR WHEEZING. active Not Available Not Available No t Available azithromyci n 250 mg tablet TAKE TABLETS (250 MG) BY ORAL ROUTE ONCE DAILY FOR 4 DAYS- TAKE WITH DINNER 04/21 completed Not Available Not Available Not Available fluconazole 150 mg tablet TAKE 1 TABLET BY MOUTH ONCE EVERY 3 DAYS (second DOSE IF symptoms persist) 04/21 completed Not Available Not Available Not Available senna 8.6 mg tablet active Not Available Not Available No t Available diltiazem CD 240 mg capsule,ext ended release 24 hr TAKE 1 CAPSULE BY MOUTH EVERY DAY active Not Available Not Available No t Available sucralfate 1 gram tablet TAKE 3 TABLETS BY MOUTH EVERY DAY 04/21 completed Not Available Not Available Not Available alendronate 70 mg tablet TAKE 1 TABLET BY MOUTH EVERY WEEK 04/21 completed Not Available Not Available Not Available sumatriptan 50 mg tablet TAKE 1 TABLET BY MOUTH AT ONSET OF MIGRAINE. MAY REPEAT ONCE AFTER 2 HOURS IF NEEDED active Not Available Not Available No t Available melatonin 3 mg tablet TAKE 1 TABLET (3 MG) BY MOUTH IF NEEDED AT BEDTIME FOR SLEEP. active Not Available Not Available No t Available chlorthalid one 25 mg tablet TAKE 1 TABLET BY MOUTH DAILY active Not Available Not Available No t Available ciprofloxac in 250 mg tablet TAKE 1 TABLET BY MOUTH TWICE A DAY FOR 3 DAYS 04/21 completed Not Available Not Available Not Available amlodipine 5 mg tablet TAKE 1 TABLET BY MOUTH EVERY DAY 04/21 completed Not Available Not Available Not Available omeprazole 40 mg capsule,del ayed release TAKE 1 CAPSULE BY MOUTH TWICE A DAY active Not Available Not Available No t Available acetaminoph en 500 mg tablet TAKE 1 TABLET BY MOUTH EVERY 6 HOURS NEEDED FOR PAIN OR FEVER active Not Available Not Available No t Available calcium 600 mg (as calcium carbonate 1,500 mg) tablet TAKE 1 TABLET BY MOUTH TWICE DAILY IN THE MORNING WITH BREAKFAST AND IN THE EVENING WITH DINNER active Not Available Not Available No t Available trazodone 100 mg tablet TAKE 1 TABLET BY MOUTH AT BEDTIME active Not Available Not Available No t Available dicyclomine 20 mg tablet TAKE 1 TABLET BY MOUTH 4 TIMES A DAY active Not Available Not Available No t Available trazodone 150 mg tablet TAKE 1 TABLET BY MOUTH DAILY AT BEDTIME 04/21 completed Not Available Not Available Not Available fluoxetine 10 mg capsule TAKE 1 CAPSULE BY MOUTH DAILY IN THE MORNING active Not Available Not Available No t Available lorazepam 1 mg tablet TAKE 1 TABLET BY MOUTH 1 HOUR BEFORE PROCEDURE active Not Available Not Available No t Available estradiol 0.01% (0.1 mg/gram) vaginal cream INSERT 1 G VAGINALLY DAILY FOR 30 DAYS active Not Available Not Available No t Available hydroxyzine HCl 10 mg tablet TAKE 1 TO 2 TABLETS BY MOUTH EVERY 6 HOURS NEEDED FOR ANXIETY active Not Available Not Available No t Available lisinopril 40 mg tablet TAKE 1 TABLET BY MOUTH DAILY active Not Available Not Available No t Available ondansetron 4 mg disintegrat ing tablet TAKE 1 TABLET BY MOUTH EVERY 8 HOURS NEEDED FOR NAUSEA/VO MITING FOR 7 DAYS active Not Available Not Available No t Available fluoxetine 20 mg capsule TAKE 1 CAPSULE BY MOUTH EVERY DAY active Not Available Not Available No t Available fluticasone propionate 50 mcg/actuati on nasal spray,suspe nsion INSTILL 2 SPRAYS BY INTRANASA L ROUTE EVERY DAY active Not Available Not Available No t Available amoxicillin 875 mg-potassiu m clavulanate 125 mg tablet TAKE 1 TABLET BY MOUTH EVERY 12 HOURS FOR 10 DAYS 04/21 completed Not Available Not Available Not Available cyclobenzap rine 5 mg tablet TAKE 1 TABLET BY MOUTH AT BEDTIME NEEDED FOR MUSCLE SPASM FOR 7 DAYS 04/21 completed Not Available Not Available Not Available metoprolol tartrate 25 mg tablet TAKE 1 TABLET BY MOUTH DAILY 04/21 completed Not Available Not Available Not Available fluocinolon e acetonide oil 0.01 % ear drops APPLY 5 DROPS TO RIGHT OR LEFT EAR NEEDED FOR ITCH OR 14 DAYS active Not Available Not Available No t Available Dupixent 200 mg/1.14 mL subcutaneou s pen injector active Not Available Not Available Not Available Vitals Date Recorded Body height Body mass index (BMI) Body weight Provider Name and Address Organization Details Last Updated DateTime 04/21/2024 149.86 cm 32.1 kg/m2 48454.19 g Sabi Grijalva [place] - [facility] 04/21/2024 15:22:56 Social History None recorded. Functional Status None recorded. Mental Status None recorded. Family History Nothing Reported. Medical History Condition Response Anxiety Y Emphysema Y Headaches Y Hypertension Y Depression Y Asthma Y Gynecological HistoryNo gynecological history recorded. Obstetrics History GPAL:G 0 P 0 0 0 0 Past Encounters Encounter ID Performer Location Encounter Start Date Encounter Closed Date Diagnosis/Indication Diagnosis SNOMED-CT Code Diagnosis ICD10 Code [id number] ESTELA MONROE MD [facility] [address] [place] [address] 04/21/2024 13:35:47 04/21/2024 15:54:22 Sensorineural hearing loss of bilateral ears 404379851 H90.3 Allergic rhinitis 736850 04 J30.9 Pruritic disorder 236819 002 L29.9 Health Concerns Section Related Observation LastModified by Organization Detai ls LastModified Time None Recorded Concern Status LastModified by Organization Details LastModified Time None Recorded Advance Directives Directive None Recorded Payers Encounter Date Sequence Insurance Name Policy Number Policy [place] Covered Member ID [place] Member ID Guarantor Name 04/21/2024 1 [facility] - DOS ON OR AFTER 2022 - CUSTODIAL OPTIONS AND ONE CARE (MEDICARE REPLACEMENT/AD VANTAGE - PPO) Yoselin Rodríguez [id number] Yoselin Rodríguez Notes Date Note Type Note Provider Name and Address Organization Details Recorded Time 04/21/2024 text/html 63-year-old fema le with a history of allergies on dupixent, no recommendation for allergy shots, no nasal sprays, presents with recurrent ear infections. She was treated last year 3 times. She has had more trouble hearing on the left side and has had pruritus as well. Most recent infection was several months ago. ESTELA MONROE MD [address] [place] [address], [phone], [facility] - [facility] 04/28/2024 08:02:56 OBGyn Episode No OBEpisode recorded.
--- OUTSIDE RECORDS SUMMARY | 2024-08-26 13:43 | XMS_ITS | Data Portability ---
Author Organization [employer] [place] [facility] [employer] Address [address] [place] [address] Care Team Providers Care Coal Handling Supervisor Name Role Phone [facility] Referring Provider [facility] Referring Provider Assessment Encounter Date Assessment Date Assessment LastModified by Organization Details LastModified Time 05/05/2023 05/05/2023 I provided real -time medical direction via phone for this encounter, and was available for additional phone based assistance as needed. I have reviewed and agree with the Assessment and Plan as documented by the Cloth Examiner eagle Not available 05/05/2023 17:13:47 Plan of Treatment Reminders Order Date Submit Date Provider Last Modified By Organization Details Last Modified Time Details Appointments None recorded. Lab None recorded. Referral None recorded. Procedures None recorded. Surgeries None recorded. Imaging None recorded. Medication Orders metronidazo le 500 mg tablet 2021 022 [facility]acy #[id number], [address] [place] [address], [address], 2 18:29:57 metronidazo le 500 mg tablet 2021 022 [facility] Not available 09:06:30 Augmentin 875 mg-125 mg tablet 2022 023 [facility]armacy #[id number], [address] [place], [address], 3 16:07:33 azithromyci n 250 mg tablet 2022 023 [facility]armacy #[id number], [address] [place], [address], 3 17:11:16 Patient TargetsNo targets recorded. Patient InstructionsNo instructions recorded. Reason for Referral None Reported. Medical Equipment None Reported. Allergies Allergen ID Allergen Name Allergen Category Reaction Reaction Severity Criticality Documentation Date Start Date Code Code System Note Provider Name and Address Organization Details Recorded Time 3050 aspirin medicatio n Not available Not available Not available 05/05/2023 1191 RxNorm Not Available [facility] - production 4 03:48:05 3051 vancomyci n medicatio n Not available Not available Not available 05/05/2023 39712 RxNorm Not Available [facility] - production 4 03:47:03 3052 ibuprofen medicatio n hives Not available Not available 05/05/2023 5640 RxNorm SOB Karen Giraldo MD [address] [place] [address],[address], [place], [address], [facility] 3 17:17:13 3053 Augmentin medicatio n dyspnea Not available Not available 05/05/2023 75157 2 RxNorm Urtic aria Karen Giraldo MD [address] [place] [address],[address], [place], [address], [facility] 3 17:18:03 Medications Name Sig Start Date Stop Date Status Note LastModified by Organization Details LastModified Time blood pressure monitor hem-9200t USE DAILY DIRECTED active Not Available Not Available Not Available quetiapine 25 mg tablet TAKE 1/2 TO 1 TABLET BY MOUTH AT BEDTIME active Not Available Not Available No t Available cyclobenzapr ine 10 mg tablet TAKE 1 TABLET BY MOUTH THREE TIMES DAILY NEEDED FOR PAIN active Not Available Not Available No t Available amoxicillin 500 mg capsule TAKE 1 CAPSULE BY MOUTH EVERY 8 HOURS FOR 10 DAYS active Not Available Not Available No t Available neomycin-allyssa ymyxin-hydro joya 3.5 mg/mL-10,000 unit/mL-1 % ear solution APPLY 3 DROPS IN THE LEFT EAR THREE TIMES DAILY FOR 5 DAYS active Not Available Not Available N ot Available prednisone 10 mg tablet TAKE 4 TABLETS (40 MG) ORALLY DAILY FOR 5 DAYS active Not Available Not Available No t Available paroxetine 10 mg tablet TAKE 1 TABLET EVERY DAY active Not Available Not Available No t Available albuterol sulfate 2.5 mg/3 mL (0.083 %) solution for nebulization INHALE 1 AMPULE USING A NEBULIZER EVERY 6 HOURS NEEDED FOR WHEEZING. active Not Available Not Available No t Available trazodone 50 mg tablet TAKE 1 OR 2 TABLETS BY MOUTH AT BEDTIME active Not Available Not Available No t Available azithromycin 250 mg tablet TAKE TABLETS (250 MG) BY ORAL ROUTE ONCE DAILY FOR 4 DAYs- take with dinner active Not Available Not Available No t Available cefpodoxime 100 mg tablet TAKE 1 TABLET BY MOUTH EVERY 12 HOURS FOR 7 DAYS active Not Available Not Available N ot Available diltiazem CD 180 mg capsule,exte nded release 24 hr TAKE 1 CAPSULE BY MOUTH EVERY DAY active Not Available Not Available No t Available simethicone 180 mg capsule TAKE 1 CAPSULE BY MOUTH FOUR TIMES DAILY AFTER MEALS active Not Available Not Available Not Available fluconazole 150 mg tablet TAKE 1 TABLET BY MOUTH EVERY DAY FOR 5 DAYS active Not Available Not Available No t Available sucralfate 1 gram tablet TAKE 3 TABLETS BY MOUTH EVERY DAY active Not Available Not Available No t Available phenazopyrid ine 200 mg tablet TAKE 1 TABLET BY MOUTH THREE TIMES DAILY AFTER MEALS NEEDED active Not Available Not Available No t Available lisinopril 20 mg tablet TAKE 1 TABLET BY MOUTH EVERY DAY active Not Available Not Available No t Available sumatriptan 50 mg tablet TAKE 1 TABLET BY MOUTH ONCE DAILY NEEDED. WAIT 2 HOURS BETWEEN DOSES active Not Available Not Available No t Available metronidazol e 500 mg tablet Take 1 tablet by oral route. 2021 active Not Available Not Available Not Avai lable sulfamethoxa zole 800 mg-trimethop rim 160 mg tablet TAKE 1 TABLET BY MOUTH EVERY TWELVE HOURS FOR 7-10 DAYS active Not Available Not Available No t Available omeprazole 40 mg capsule,gerardo yed release TAKE 1 CAPSULE BY MOUTH TWICE DAILY active Not Available Not Available No t Available calcium 600 mg (as calcium carbonate 1,500 mg) tablet TAKE 1 TABLET BY MOUTH WITH BREAKFAST AND EVENING MEAL active Not Available Not Available No t Available amitriptylin e 25 mg tablet TAKE 1 TABLET BY MOUTH AT BEDTIME active Not Available Not Available No t Available lorazepam 0.5 mg tablet TAKE 1 TABLET BY MOUTH 1 HOUR BEFORE DENTAL PROCEDURE active Not Available Not Available No t Available trazodone 100 mg tablet TAKE 1 TO 1 & 1/2 TABLETS BY MOUTH AT BEDTIME active Not Available Not Available No t Available dicyclomine 20 mg tablet TAKE 1 TABLET BY MOUTH FOUR TIMES DAILY active Not Available Not Available Not Available diltiazem ER 120 mg capsule,24 hr,extended release TAKE 1 CAPSULE BY MOUTH EVERY DAY active Not Available Not Available No t Available clotrimazole -betamethaso ne 1 %-0.05 % topical cream APPLY TO THE AFFECTED AREA(S) TWICE DAILY NEEDED FOR irritation active Not Available Not Available N ot Available lisinopril 10 mg tablet TAKE 1 TABLET BY MOUTH EVERY DAY active Not Available Not Available No t Available fluoxetine 10 mg capsule TAKE 1 CAPSULE BY MOUTH DAILY IN THE MORNING active Not Available Not Available No t Available gabapentin 300 mg capsule TAKE 1 CAPSULE BY MOUTH EVERY NIGHT FOR ONE WEEK, THEN MAY INCREASE TO 1 CAPSULE TWICE DAILY FOR ONE WEEK, THEN MAY INCREASE TO 1 CAPSULE THREE TIMES DAILY as tolerated active Not Available Not Available No t Available diltiazem CD 120 mg capsule,exte nded release 24 hr TAKE 1 CAPSULE BY MOUTH EVERY DAY active Not Available Not Available No t Available hydrochlorot hiazide 25 mg tablet TAKE 1 TABLET BY MOUTH EVERY MORNING active Not Available Not Available No t Available gabapentin 100 mg capsule TAKE 1 CAPSULE BY MOUTH 3 TIMES A DAY active Not Available Not Available Not Available ergocalcifer ol (vitamin D2) 1,250 mcg (50,000 unit) capsule TAKE 1 CAPSULE BY MOUTH ONCE WEEKLY active Not Available Not Available No t Available lorazepam 1 mg tablet TAKE 1 TABLET BY MOUTH 1 HOUR BEFORE PROCEDURE active Not Available Not Available No t Available estradiol 0.01% (0.1 mg/gram) vaginal cream INSERT 1 GRAM VAGINALLY ONCE DAILY DIRECTED active Not Available Not Available Not Available levofloxacin 750 mg tablet TAKE 1 TABLET BY MOUTH EVERY DAY FOR 7 DAYS active Not Available Not Available No t Available hydroxyzine HCl 10 mg tablet TAKE 1 OR 2 TABLETS BY MOUTH EVERY 6 HOURS NEEDED FOR ANXIETY active Not Available Not Available No t Available lisinopril 40 mg tablet TAKE 1 TABLET BY MOUTH EVERY DAY active Not Available Not Available No t Available ondansetron 4 mg disintegrati ng tablet DISSOLVE 1 TABLET BY MOUTH EVERY 6 HOURS NEEDED FOR NAUSEA AND VOMITING active Not Available Not Available No t Available fluoxetine 20 mg capsule TAKE 1 CAPSULE BY MOUTH EVERY DAY active Not Available Not Available No t Available fluticasone propionate 50 mcg/actuatio n nasal spray,suspen chantale USE 1 SPRAY IN EACH NOSTRIL EVERY MORNING active Not Available Not Available No t Available doxycycline hyclate 100 mg tablet TAKE 1 TABLET BY MOUTH TWICE DAILY FOR 14 DAYS active Not Available Not Available No t Available amoxicillin 875 mg-potassium clavulanate 125 mg tablet TAKE 1 TABLET BY MOUTH EVERY 12 HOURS FOR 10 DAYS active Not Available Not Available Not Available Ventolin HFA 90 mcg/actuatio n aerosol inhaler INHALE 2 PUFFS BY MOUTH EVERY 4 TO 6 HOURS NEEDED active Not Available Not Available No t Available Alcohol Prep Pads active Not Available Not Available Not Available pregabalin 75 mg capsule TAKE 1 CAPSULE BY MOUTH TWICE DAILY active Not Available Not Available No t Available chlorhexidin e gluconate 0.12 % mouthwash RINSE WITH 15 ML IN MOUTH NEEDED WOUND CARE FOR UP TO 14 DAYS DIRECTED active Not Available Not Available No t Available BD Sharps Hockey Scout active Not Available Not Available No t Available Symbicort 160 mcg-4.5 mcg/actuatio n HFA aerosol inhaler INHALE 2 PUFFS BY MOUTH TWICE DAILY. RINSE MOUTH AFTER USING. active Not Available Not Available No t Available diclofenac 1 % topical gel APPLY 2 GRAMS TO AFFECTED AREA(S) TWICE DAILY IN THE MORNING AND AT BEDTIME NEEDED FOR PAIN active Not Available Not Available No t Available Fiber Laxative (methylcellu lose) 500 mg tablet TAKE 1 TABLET BY MOUTH TWICE DAILY active Not Available Not Available No t Available Oyster Shell Calcium-Annabella min D3 500 mg-10 mcg (400 unit) tablet TAKE 1 TABLET BY MOUTH TWICE DAILY active Not Available Not Available No t Available Zenpep 20,000 unit-63,000 unit-84,000 unit capsule,gerardo yed release TAKE 1 CAPSULE BY MOUTH FOUR TIMES DAILY WITH MEALS and/or SNACKS active Not Available Not Available No t Available Dupixent 300 mg/2 mL subcutaneous pen injector active Not Available Not Available Not Available Dupixent 200 mg/1.14 mL subcutaneous pen injector active Not Available Not Available Not Available Vitals Date Recorded Oxygen saturation Oxygen saturation in Arterial blood by Pulse oximetry Heart rate Body weight Body temperature Respiratory rate Systolic blood pressure Diastolic blood pressure Provider Name and Address Organization Details Last Updated DateTime 3 98 % 98 % 71 /min 20001.8 8 g 97.1 [degF] 16 /min 181 mm[Hg] 79 mm[Hg] Not Available [facility] production 3 16:05:25 Date Recorded Respiratory rate Body temperature Oxygen saturation Oxygen saturation in Arterial blood by Pulse oximetry Heart rate Systolic blood pressure Diastolic blood pressure Provider Name and Address Organization Details Last Updated DateTime 3 12 /min 98.4 [degF] 98 % 98 % 66 /min 152 mm[Hg] 74 mm[Hg] Not Available [facility] 3 17:08:28 Date Recorded Body weight Provider Name an d Address Organization Details Last Updated DateTime 05/05/2023 65578.82 g Lexy Mendoza [address] [place] [address],[address], [place], [address], [place] [facility] 05/05/2023 17:09:15 Date Recorded Body temperature Heart rate Respiratory rate Oxygen saturation Oxygen saturation in Arterial blood by Pulse oximetry Systolic blood pressure Diastolic blood pressure Provider Name and Address Organization Details Last Updated DateTime 2 98.6 [degF] 80 /min 16 /min 100 % 100 % 161 mm[Hg] 78 mm[Hg] Orlin Ruiz MD [address] [place] [address],[address], [place], [address], [employer] 2 18:30:24 Social History None recorded. Functional Status None recorded. Mental Status None recorded. Family History Nothing Reported. Medical History No medical history recorded. Gynecological HistoryNo gynecological history recorded. Obstetrics History GPAL:G 0 P 0 0 0 0 Past Encounters Encounter ID Performer Location Encounter Start Date Encounter Closed Date Diagnosis/Indication Diagnosis SNOMED-CT Code Diagnosis ICD10 Code [id number] Orlin Ruiz MD [address] [address] 01/05/2022 18:15:37 06/07/2022 14:14:50 Acute pelvic pain 085203113 R10.2 [id number] Andrea Thorpe MD [address] [address] 04/24/2023 16:05:20 04/24/2023 23:29:29 Acute otitis media 4538722 H66.92 [id number] Karen Giraldo MD [address] [address] 05/05/2023 17:08:26 05/07/2023 07:15:01 Acute otitis media 9679834 H66.92 Health Concerns Section Related Observation LastModified by Organization Detai ls LastModified Time None Recorded Concern Status LastModified by Organization Details LastModified Time None Recorded Advance Directives Directive None Recorded Payers Encounter Date Sequence Insurance Name Policy Number Policy Barrow Covered Member ID Barrow Member ID Guarantor Name 01/05/2022 1 [facility] - DOS PRIOR TO 2022 - DUAL ELIGIBLE (MEDICARE REPLACEMENT/ADV ANTAGE - HMO) Yoselin Rodríguez [id number] Yoselin Rodríguez 04/24/2023 1 [employer] - DOS ON OR AFTER 2022 - DUAL ELIGIBLE - ASSISTED OPTIONS AND ONE CARE (MEDICARE REPLACEMENT/ADV ANTAGE - HMO) Yoselin Rodríguez [id number] Yoselin Rodríguez 05/05/2023 1 [facility] [facility] - DOS ON OR AFTER 2022 - DUAL ELIGIBLE - ASSISTED OPTIONS AND ONE CARE (MEDICARE REPLACEMENT/ADV ANTAGE - HMO) Yoselin Rodríguez [id number] Yoselin Rodríguez Notes Date Note Type Note Provider Name and Address Organization Details Recorded Time 01/05/2022 text/html Reports one week ago, polyp removed from her cervix. Since then she has had vaginal discharge, pelvic pain, nausea. Reports a fever, TMax 101. Lower left abdominal pain, wrapping around towards her back. Some bloody spotting, no foul-smelling discharge. Some dysuria, but no urinary frequency and symptoms are not consistent with her previous UTI. Orlin Ruiz MD [address] [place] [address],[address] [facility], [place], [address], [employer] 01/05/2022 18:31:02 04/24/2023 text/html HPI: Severe left ear ache .................. .................. .................. .................. .................. .................. .................. ............... [facility] Nursing Assessment: Comments: [facility] triage nurse calling on behalf of member with request for MI visit for complaints of outer ear discomfort for 3 days Aware MIH visit does not include inner ear eval. Request instED visit to eval unsure fever/chills Verify member name/- Andrea Thorpe MD [address] [facility],[address], [place], [address], [facility] [employer] 04/24/2023 16:07:52 05/05/2023 text/html HPI: mbr with know ear infection for two weeks/nasal congestion/moderat e pain, recent ED visit ordered Fluconazole, mbr looking for oral antibiotics, requesting MIH. Protocol Used: Ear - Discharge Protocol-Based Disposition: Consider instED, [facility], or PCP visit within 24 hours Positive Triage Questions: * Ear pain * Foul-smelling discharge Negative Triage Questions: * [1] Bloody or clear ear discharge AND [2] after a head or face injury * Fever > 100.4 F (38.0 C) .................. .................. .................. .................. .................. .................. .................. ............... [facility] Nursing Assessment: Comments: [facility] RN did not require any additional information to process this visit. SEGMD: Patient seen by us 04/24 diagnosed with presumptive left otitis media. She was prescribed Augmentin. She took 1 dose and developed hives and shortness of breath. The allergic reaction has abated but she is still having left sinus pain and left ear pain. No fever, chills, nausea, vomiting, diarrhea. She does have a little left frontal headache. She is taking Tylenol 500 mg every 3 hours. She saw her PCP on (2 days ago) and was prescribed fluticasone and not fluconazole. She is looking for another antibiotic........ .................. .................. .................. .................. .................. .................. .................. ....... Cloth Examiner Note From Estrada Jain: Dispatched to the above noted residence for the female patient with ENT pain. Upon arrival, pt found freely ambulatory in no obvious acute distress. Pt states she was seen 2 weeks ago and was Dx with ear infection. Pt was Rx'd amoxicillin for treatment. Pt states she took 1 pill and developed a moderate allergic reaction. Pt stopped taking the med at that time. Pt was seen by PCP on and was not given any additional abx. Pt request eval today. Pt left ear noted to be tender and well as left sinus. No noted redness, swelling, temp difference, or drainage noted. Pt reports headache to the left side of her head for the last 2 weeks due to ear infection. Patient denies any shortness of breath, fever, n/v/d, chest pain, or AMS. Patient denies any weakness. Pt denies photophobia. Patient denies any additional acute complaints at this time. HEENT as noted. EYES LORRAINE, Lung sounds clear. Equal chest rise and fall. Patient noted to have a steady gait. [facility] contacted to discuss patient presentation, complaints, and clinical findings. [facility] orders Azythromycin 500mg PO be given to patient today and will send Rx to pharmacy for pickup tomorrow. Patient understands and agree. Pt to continue with APAP for headache and pain. Pt to follow up with PCP on sunday for further eval. Red flags discussed with patient. Pt instructed to call EMS, PCP, or visit local ED should she develop chest pain, fever, shortness of breath, ams, N/V/D, or any additional acute complaints. Patient understands and agree to above. .................. .................. .................. .................. .................. .................. .................. ............... Disposition: Fulfilled Karen Giraldo MD [address] [facility],[address], [place], [address], [facility] 05/05/2023 22:29:41 OBGyn Episode No OBEpisode recorded.
== END 2024-08-19 13:32 | disposition home or self-care (01) ==
PROVIDERS: PCP Internal Medicine; Visit Provider Internal Medicine Pulmonary Disease
DX: J45.40 Moderate persistent asthma, uncomplicated (principal); G47.33 Obstructive sleep apnea (adult) (pediatric); Z91.09 Other allergy status, other than to drugs and biological substances
CPT/HCPCS: 99214; G2211

== ENCOUNTER → 2024-08-19 12:26 | Outpatient (BNVA) | payer OTHER, SELFPAY | PROVIDERS: PCP Internal Medicine; Visit Provider Internal Medicine Pulmonary Disease | DX: J45.40 Moderate persistent asthma, uncomplicated (principal); G47.33 Obstructive sleep apnea (adult) (pediatric); Z91.09 Other allergy status, other than to drugs and biological substances | CPT/HCPCS: 99212 ==

== ENCOUNTER 2024-09-02 12:31 | Outpatient (AMB) | payer OTHER, SELFPAY ==
--- OUTSIDE RECORDS SUMMARY | 2024-09-02 12:33 | XMS_ITS | Data Portability ---
Author Organization [place] [facility], Allergy Address [address] [place] [address] Assessment Encounter Date Assessment Date Assessment LastModified by Organization Details LastModified Time 04/21/2024 04/21/2024 63-year-old female with a history of allergic rhinitis presents today for evaluation of her ears, with recurrent infections, tinnitus, and decreased hearing. There is no evidence of infection today. We reviewed aural hygiene. I recommended trying DermOtic oil as needed for the pruritus. I did in house counsel her that a nasal steroid such as [...] nasal spray,viet pension 2023 024 [id number], [address] [place], [address], 15:52:39 DermOtic Oil 0.01 % ear drops 2023 024 [id number], [address] [place], [address], 12:15:29 Patient TargetsNo targets recorded. Patient InstructionsNo [...] Time Sensorineural hearing loss of bilateral ears 617718355 Active 2023 [place]ER [place] [address] [place] [address], [place], [address], [place] [facility] 13:52:52 Allergic rhinitis 61011024 Active 2023 ESTELA MONROE MD [address] [place] [address], [phone], [place] - [facility] 15:50:03 Pruritic disorder 864718429 Active 2023 ESTELA MONROE MD [address] [place] [address], [phone], [facility] - [facility] 15:50:09 Pruritic disorder of skin Active 2023 ESTELA MONROE MD [address] [place] [address], [place], [phone], [facility] - [facility] 15:52:00 Problem Notes None recorded. Procedures Surgical History Date Name Laterality Status Provider Name and Address Organization Details Recorded Time 04/21/20 24 Comp Audio with Tymps (65154 & 95278) completed [facility]ER [place] [address] [facility],[address], [address], [facility] - [facility] 04/21/2024 13:52:45 tonsillectomy completed ESTELA MONROE MD [address] [place] [address],[address], [address], [place] [facility] 04/28/2024 07:58:20 section completed ESTELA MONROE MD [address] [place] [address], [place], [address], [place] [facility] 04/28/2024 07:58:28 Imaging Results Imaging Date Name [...] Name and Address Organization Details Recorded Time 335949 aspirin medicatio n Not available Not available Not available 04/21/2024 1191 RxNorm Sabi paige [facility] 13:44:51 420155 amoxicill in medicatio n Not available Not available Not available 04/21/2024 723 RxNorm Sabi Rudi paige [facility] 4 13:45:02 624995 cultivate d mushroom extract food Not available Not available Not available 04/21/2024 45944 17 RxNorm Sabi Rudi paige [facility] 4 13:45:09 Medications Name Sig Start Date [...] Updated DateTime 04/21/2024 149.86 cm 32.1 kg/m2 97081.19 g Sabi Grijalva [place] - [facility] 04/21/2024 15:22:56 Social History None recorded. Functional [...] Diagnosis/Indication Diagnosis SNOMED-CT Code Diagnosis ICD10 Code [id number] ESTELA MONROE MD [facility] [address] [place] [address] 04/21/2024 13:35:47 04/21/2024 15:54:22 Sensorineural hearing loss of bilateral ears 420712238 H90.3 Allergic rhinitis 537115 04 J30.9 Pruritic disorder 782093 002 L29.9 Health Concerns Section Related Observation LastModified by Organization Detai ls LastModified Time None Recorded Concern Status LastModified by Organization Details LastModified Time None Recorded Advance Directives Directive None Recorded Payers Encounter Date Sequence Insurance Name Policy Number Policy Barrow Covered Member ID Barrow Member ID Guarantor Name 04/21/2024 1 [facility] - DOS ON OR AFTER 2022 - [facility]PC OPTIONS AND ONE CARE (MEDICARE REPLACEMENT/AD VANTAGE - PPO) Yoselin Rodríguez [id number] Yoselin Rodríguez Notes Date Note Type Note [...] was several months ago. ESTELA MONROE MD [address] [place] [address], [address], [facility] - [facility] 04/28/2024 08:02:56 OBGyn Episode No OBEpisode recorded.
--- OUTSIDE RECORDS SUMMARY | 2024-09-02 12:33 | XMS_ITS | Data Portability ---
Author Organization [employer] [facility] [place] [facility] Address [address] [place] [phone] Care Team Providers Care Bleaching Supervisor Name Role Phone [facility] OTHER [phone] [facility] OTHER Assessment Encounter Date Assessment Date Assessment LastModified by Organization Details LastModified Time 05/05/2023 05/05/2023 I provided real -time medical direction via phone for this encounter, and was available for additional phone based assistance as needed. I have reviewed and agree with the Assessment and Plan as documented by the Art Professor [email or web address] Not available 05/05/2023 17:13:47 08/27/2024 08/27/2024 service called for cough found 63 loraine with hx COPD Depression anxiety HTN pancreatitis c/o non-productive cough 3d, wheezing increased use of nebulizers denies fevers, chills,n/v/d reports that experiences BP elevation with PO pred VSS note BP 164/72 reported exam CTAB neg COVID, neg FLU #COPD Exacerbation already maximal home nebulizers short burst PO pred pred 20mg PO now notify service if worsening or no improvement otherwise return to ptimary team [email or web address] Not available 08/27/2024 19:14:19 Plan of Treatment Reminders Order Date Submit Date Provider Last Modified By Organization Details Last Modified Time Details Appointments None recorded. Lab rapid SARS CoV 2 Ag, QL IA, respiratory specimen 2023 [facility], [address] [place] [address], [phone], 19:41:18 rapid flu (A+B) 2023 [facility], [address] [place] [address], [phone], 19:41:57 Referral None recorded. Procedures None recorded. Surgeries None recorded. Imaging None recorded. Medication Orders metronidazo le 500 mg tablet 2021 022 [id number] [address] [place] [address], [address], 2 18:29:57 metronidazo le 500 mg tablet 2021 022 [email or web address] Not available 2 09:06:30 Augmentin 875 mg-125 mg tablet 2022 023 [facility] [address] [place] [address], [address], 3 16:07:33 azithromyci n 250 mg tablet 2022 023 [facility] [address] [place] [address], [address], 3 17:11:16 prednisone 20 mg tablet 2023 [email or web address] [address] [place] [address], [address], 4 16:22:59 prednisone 20 mg tablet 2023 024 [facility] [address] [place] [address], [address], 4 16:24:53 benzonatate 100 mg capsule 2023 024 [facility] [address] [place] [address], [address], 4 16:24:53 Patient TargetsNo targets recorded. Patient InstructionsNo instructions recorded. Reason for Referral None Reported. Results Created Date Observation Date Name Description Value Unit Range Abnormal Flag Note LastModifiedBy Organization Detail LastModifiedTime 08/27/20 24 08/27/2024 rapid flu (A+B) Flu negati ve Not Available Main - [facility] ed [address] [place] [address], [phone], 08/27/2024 19:14:26 08/27/20 24 08/27/2024 rapid SARS CoV 2 Ag, QL IA, respi rator y speci men rapid SARS CoV 2 Ag, QL IA, respiratory specimen negati ve Not Available Main - [facility] ed [address] [place], [address], 08/27/2024 19:14:26 Result Notes None recorded. Medical Equipment None Reported. [...] Not available Not available Not available 05/05/2023 44606 RxNorm Not Available [facility] - production 4 03:47:03 3052 ibuprofen medicatio n hives Not available Not available 05/05/2023 5640 RxNorm SOB Karen Giraldo MD [address] [place] [address],[address], [place], [address], [employer] 3 17:17:13 3053 Augmentin medicatio n dyspnea Not available Not available 05/05/2023 16665 2 RxNorm Urtic aria Karen Giraldo MD [address] [place] [address],[address], [place], [address], [employer] 3 17:18:03 Medications Name Sig Start Date [...] Not Available Not Available No t Available prednisone 20 mg tablet Take 1 tablet every day by oral route in the morning for 3 days. 2023 active Not Available Not Available Not Avai lable sumatriptan 50 mg tablet TAKE 1 TABLET [...] Not Available Not Available No t Available benzonatate 100 mg capsule Take 1 capsule 3 times a day by oral route as needed for 7 days, for cough. 2023 active Not Available Not Available Not Avai lable clotrimazole -betamethaso ne 1 %-0.05 % topical [...] Not Available No t Available [facility] [employer] Manager Clinical active Not Available Not Available No t [...] 3 98 % 98 % 71 /min 44435.8 8 g 97.1 [degF] 16 /min 181 [...] /min 152 mm[Hg] 74 mm[Hg] Not Available [employer] [facility] - production 3 17:08:28 Date Recorded Body weight Provider Name an d Address Organization Details Last Updated DateTime 05/05/2023 58192.82 g Lexy Mendoza [address] [facility],[address], [place], [address], [place] - [employer] 05/05/2023 17:09:15 Date Recorded Oxygen saturation Oxygen saturation in Arterial blood by Pulse oximetry Body weight Respiratory rate Heart rate Body temperature Systolic blood pressure Diastolic blood pressure Provider Name and Address Organization Details Last Updated DateTime 4 99 % 99 % 62882.5 36 g 16 /min 82 /min 98 [degF] 164 mm[Hg] 72 mm[Hg] Not Available [facility] - [employer] 4 16:20:14 Date Recorded Body temperature Heart rate Respiratory rate Oxygen saturation Oxygen saturation in Arterial blood by Pulse oximetry Systolic blood pressure Diastolic blood pressure Provider Name and Address Organization Details Last Updated DateTime 2 98.6 [degF] 80 /min 16 /min 100 % 100 % 161 mm[Hg] 78 mm[Hg] Orlin Ruiz MD [address] [facility],[address], [place], [address] [place] [address] 18:30:24 Social History None recorded. Functional Status None recorded. Mental Status None recorded. Family History Nothing Reported. Medical History No medical history recorded. Gynecological HistoryNo gynecological history recorded. Obstetrics History GPAL:G 0 P 0 0 0 0 Past Encounters Encounter ID Performer Location Encounter Start Date Encounter Closed Date Diagnosis/Indication Diagnosis SNOMED-CT Code Diagnosis ICD10 Code [id number] Orlin Ruzi MD Main - [facility] [address] [place] [phone] 01/05/2022 18:15:37 06/07/2022 14:14:50 Acute pelvic pain 423879414 R10.2 [id number] Andrea Thorpe MD Main - [address] [address] 04/24/2023 16:05:20 04/24/2023 23:29:29 Acute otitis media 4488485 H66.92 [id number] Karen Giraldo MD Main - [address] [address] 05/05/2023 17:08:26 05/07/2023 07:15:01 Acute otitis media 5939924 H66.92 [id number] Domi Garland MD Main - [address] [address] 08/27/2024 16:20:07 08/28/2024 00:15:45 Acute exacerbation of chronic obstructive pulmonary disease 845923395 J44.1 Health Concerns Section Related Observation LastModified by Organization Detai ls LastModified Time None Recorded Concern Status LastModified by Organization Details LastModified Time None Recorded Advance Directives Directive None Recorded Payers Encounter Date Sequence Insurance Name Policy Number Policy Barrow Covered Member ID Barrow Member ID Guarantor Name 01/05/2022 1 [facility] PRIOR TO 2022 - DUAL ELIGIBLE (MEDICARE REPLACEMENT/AD VANTAGE - HMO) Yoselin Rodríguez [id number] Yoselin Rodríguez 04/24/2023 1 [facility] - DOS ON OR AFTER 2022 - DUAL ELIGIBLE - [facility] OPTIONS AND ONE CARE (MEDICARE REPLACEMENT/AD VANTAGE - HMO) Yoselin Rodríguez [id number] Yoselin Rodríguez 05/05/2023 1 [facility] - DOS ON OR AFTER 2022 - DUAL ELIGIBLE - [facility] OPTIONS AND ONE CARE (MEDICARE REPLACEMENT/AD VANTAGE - HMO) Yoselin Rodríguez [id number] Yoselin Rodríguez 08/27/2024 1 [facility] - DOS ON OR AFTER 2022 - DUAL ELIGIBLE - [facility] OPTIONS AND ONE CARE (MEDICARE REPLACEMENT/AD VANTAGE - HMO) Yoselin Rodríguez [id number] Yoselin Rodríguze Notes Date Note Type Note Provider Name [...] with her previous UTI. Orlin Ruiz MD [address] [place] [address],[address], [place], [address], [employer] 01/05/2022 18:31:02 04/24/2023 text/html HPI: Severe left ear ache .................... .................... .................... .................... .................... .................... .................... . [facility] Nursing Assessment: Comments: [facility] triage nurse calling on behalf of member with request for [facility] visit for complaints of outer ear discomfort for 3 days Aware [facility] visit does not include inner ear eval. Request [facility] visit to eval unsure fever/chills Verify member name/- Andrea Thorpe MD [address] [place] [address],[address], [place], [address], [employer] 04/24/2023 16:07:52 05/05/2023 text/html HPI: mbr with know ear infection for two weeks/nasal congestion/moderate pain, recent ED visit MD ordered Fluconazole, mbr looking for oral antibiotics, requesting [facility]. Protocol Used: Ear - Discharge Protocol-Based Disposition: Consider [facility], [facility], or PCP visit within 24 hours Positive Triage Questions: * Ear pain * Foul-smelling discharge Negative Triage Questions: * [1] Bloody or clear ear discharge AND [2] after a head or face injury * Fever > 100.4 F (38.0 C) .................... .................... .................... .................... .................... .................... .................... . [facility] Nursing Assessment: Comments: [facility] RN did [...] not fluconazole. She is looking for another antibiotic.......... .................... .................... .................... .................... .................... .................... ........... Art Professor Note From Estrada Jain: Dispatched to the [...] Patient noted to have a steady gait. [facility] contacted to discuss patient presentation, complaints, and clinical findings. [facility] orders Azythromycin 500mg PO be given to [...] complaints. Patient understands and agree to above. .................... .................... .................... .................... .................... .................... .................... . Disposition: Fulfilled Karen Giraldo MD [address] [facility],[address], [place], [address], [employer] 05/05/2023 22:29:41 08/27/2024 text/html HPI: Member calling into CRU c/o sob, cough, wheezing, dizziness, member reports congestion in her chest, that she is having difficulty expectorating. However, this morning she coughed up green phlegm. Member denies fever or chest pain. During this call, at times member was coughing and slight wheezing was audible. Member was able to speak in full sentences. However, a few times she paused while speaking. Member check o2 sat during this call and reports result 99% on r/a. Member states she has been using her MDI and nebulizer, with little to no effect. PMH includes: COPD, Asthma, MDD, GERD, JESSICA, pancreatitis, Back pain. Member is requesting visit for assessment and COVID test. .................... .................... .................... .................... .................... .................... .................... . [facility] Nurse Triage Notes (Huong Guzmán): Chief Complaints: Asthma, Breathing problems, COPD, Cough PMH: Hypertension, COPD/Asthma, Depression, Anxiety Disorder, Pancreatitis, Chronic Back Pain Comments: CRC RN did not require any additional information to process this visit. Art Professor Organization Information for Shantanu Olson [employer] Legal Name: [facility] Address: [address] [place] [address], [place] [address], [employer] Supervisor: Zachary Heredia MD CLIA No.: [id number] Art Professor POC Test Results from Shantanu Olson - ALS Rapid COVID antigen (16:14:44) COVID: - Attachments uploaded as part of this test result can be found under Documents section. Rapid influenza antigen (16:14:45) Flu: - Attachments uploaded as part of this test result can be found under Documents section. .................... .................... .................... .................... .................... .................... .................... . Art Professor Note From Shantanu Olson: Pt co dry cough. Pt gregorio had some mucus production just in the morning when she woke up.Pt gregorio has NC, sneezing and runny nose a couple days ago however symptoms have subsided. Pt using her nebulizer with some relief. Pt gregorio has appt with pulmonary however the nurse on the phone told her she needed a negative covid swab prior. Pt denies fever, headache, dizziness, NVD. Baseline vitals assessed, WNL, Afebrile, lungs clear bilaterally, Covid and flu swab neg. [facility] Dada contacted and 20mg prednisone given PO, right meds, dose, date and route. RX called in for prednisone and benzonatate and continue with nebulizer treatments.. Pt education on signs indicating the ER. 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 Pt advised to follow up with PCP. .................... .................... .................... .................... .................... .................... .................... . [facility] Consulted: Dmoi Garland .................... .................... .................... .................... .................... .................... .................... . Disposition: Fulfilled Domi Garland MD [address] [facility],[address], [place], [address], [employer] 08/27/2024 19:14:58 OBGyn Episode No OBEpisode recorded.
--- OUTSIDE RECORDS SUMMARY | 2024-09-02 12:34 | XMS_ITS | Continuity of Care Document ---
Author Organization [email or web address] [facility] [place] [facility] Address [address] [place] [phone] Care Team Providers Care Denture Technician Name Role Phone [facility] OTHER [facility] OTHER Assessment Encounter Date Assessment Date Assessment LastModified by Organization Details LastModified Time 08/27/2024 08/27/2024 service called for cough found [...] 2 Ag, QL IA, respiratory specimen 2023 [facility], [address] [place] [address], [phone], 19:41:18 rapid flu (A+B) 2023 [facility], [address] [place] [address], [address], 19:41:57 Referral None recorded. Procedures None recorded. Surgeries None recorded. Imaging None recorded. Medication Orders prednisone 20 mg tablet 2023 [email or web address] [id number], [address] [facility], [place], [address], 12/11/202 4 16:22:59 prednisone 20 mg tablet 2023 024 [facility], [address] [place], [address], 4 16:24:53 benzonatate 100 mg capsule 2023 024 [facility], [address] [place], [address], 4 16:24:53 Patient TargetsNo targets recorded. Patient InstructionsNo instructions recorded. Reason for Referral None Reported. Results Created Date Observation Date Name Description Value Unit Range Abnormal Flag Note LastModifiedBy Organization Detail LastModifiedTime 08/27/2008/27/2024 rapid flu (A+B) Flu negati ve Not Available [facility] ed [address] [place] [address], [address], 08/27/2024 19:14:26 08/27/20 24 08/27/2024 rapid SARS CoV 2 Ag, QL IA, respi rator y speci men rapid SARS CoV 2 Ag, QL IA, respiratory specimen negati ve Not Available [facility] ed [address] [place] [address], [address], 08/27/2024 19:14:26 Result Notes None recorded. Medical [...] Not available Not available Not available 05/05/2023 02489 RxNorm Not Available [facility] - production 4 03:47:03 3052 ibuprofen medicatio n hives Not available Not available 05/05/2023 5640 RxNorm SOB Karen Giraldo MD [address] [facility],[address], [place], [address] , [facility] [employer] 3 17:17:13 3053 Augmentin medicatio n dyspnea Not available Not available 05/05/2023 35660 2 RxNorm Urtic uhgo Giraldo MD [address] [facility],[address], [place], [address], FRANDY - FAIS[facility], MIN 3 17:18:03 Medications Name Sig Start Date [...] Not Available No t Available [employer] Officer active Not Available Not Available No t [...] Updated DateTime 4 99 % 99 % 79562.5 36 g 16 /min 82 /min 98 [degF] 164 mm[Hg] 72 mm[Hg] Not Available [employer] 4 16:20:14 Social History None recorded. Functional Status None recorded. Mental Status None recorded. Family History Nothing Reported. Medical History No medical history recorded. Gynecological HistoryNo gynecological history recorded. Obstetrics History GPAL:G 0 P 0 0 0 0 Past Encounters Encounter ID Performer Location Encounter Start Date Encounter Closed Date Diagnosis/Indication Diagnosis SNOMED-CT Code Diagnosis ICD10 Code [id number] Domi Garland MD Main - [facility] [address] [place] [phone] 08/27/2024 16:20:07 08/28/2024 00:15:45 Acute exacerbation of chronic obstructive pulmonary disease [id number] J44.1 Health Concerns Section Related Observation LastModified by Organization Detai ls LastModified Time None Recorded Concern Status LastModified by Organization Details LastModified Time None Recorded Payers Encounter Date Sequence Insurance Name Policy Number Policy Barrow Covered Member ID Barrow Member ID Guarantor Name 08/27/2024 1 [facility] - DOS ON OR AFTER 2022 - DUAL ELIGIBLE - [employer] OPTIONS AND ONE CARE (MEDICARE REPLACEMENT/AD VANTAGE - HMO) Yoselin Rodríguez [id number] Yoselin Rodríguez Notes Date Note Type Note Provider Name and Address Organization Details Recorded Time 08/27/2024 text/html HPI: Member calling into CRU [...] any additional information to process this visit. Insulation Nozzleman Organization Information for Shantanu Olson Business Legal Name: [facility] Address: [address] [place] [address], [place] [address], Supervisor Hanging And Trimming: Zachary MAE No.: [id number] [employer]zzle[employer] POC Test Results from Shantanu Olson Rapid COVID antigen (16:14:44) COVID: - Attachments uploaded as part of this test result can be found under Documents section. Rapid influenza antigen (16:14:45) Flu: - Attachments uploaded as part of this test result can be found under Documents section. .................... .................... .................... .................... .................... .................... .................... . [employer] No[employer] Note From Shantanu Olson: Pt co dry [...] clear bilaterally, Covid and flu swab neg. [facility] Dada contacted and 20mg prednisone given PO, right meds, dose, date and route. RX called in for prednisone and benzonatate and continue with nebulizer treatments.. Pt education on signs indicating the ER. Pt advised to continue with acid recovery operator appt. Pt advised to follow up with PCP. .................... .................... .................... .................... .................... .................... .................... . [facility] Consulted: Domi Garland .................... .................... .................... .................... .................... .................... .................... . Disposition: Fulfilled Domi Garland MD [address] [facility],[address] [facility], [place], [address], [employer] 08/27/2024 19:14:58 OBGyn Episode No OBEpisode recorded.
[2024-09-02 13:00] VITALS: BP 142/72; PULSE 73; O2SAT 99; BMI 33.4
--- NOTE | 2024-09-02 13:00 | MHC.OFFVIS ---
Vital Signs 09/02/24 13:00 Height 4 ft 10 in Weight 160 lb BMI 33.4 BP 142/72 H Blood Pressure Location Lt brachial Position Sitting Pulse 73 Pulse Source Doppler Pulse Oximetry (%) 99 Oxygen Delivery Method Room Air Intake Visit Reasons: asthma Allergies seafood Allergy (Severe, Verified 08/06/24 13:39) Anaphylaxis vancomycin [VANCOMYCIN] Allergy (Severe, Verified 08/06/24 13:39) ANAPHYLAXIS, hives aspirin [ASPIRIN] Allergy (Intermediate, Verified 08/06/24 13:39) rash, asthma codeine [CODEINE] Allergy (Mild, Verified 08/06/24 13:39) rash egg [EGGS] Allergy (Mild, Verified 08/06/24 13:39) VOMITING peanut [PEANUTS] Allergy (Mild, Verified 08/06/24 13:39) HIVES,DIARRHEA amoxicillin [From Augmentin] Allergy (Verified 08/06/24 13:39) hives, swelling, difficulty breathing clavulanic acid [From Augmentin] Allergy (Verified 08/06/24 13:39) hives, swelling mushroom Allergy (Verified 08/06/24 13:39) Rash lactose Adverse Reaction (Intermediate, Verified 08/06/24 13:39) diarrhea HPI HPI asthma: Details: 63-year-old lady, lifetime nonsmoker, followed for severe persistent asthma, environmental allergies, and post COVID-19 syndrome.? Patient was not able to tolerate immunologic therapy for her asthma including Fasenra and Xolair, but had good response with Dupixent. She also has had significant side effects after COVID vaccines.? She continues on Dupixent, Symbicort, and albuterol MDI with good control of her symptoms. Today she compliance of bronchitic exacerbation ongoing for the last 2 weeks. She was treated with brief prednisone course for 3 days and Tessalon Perles with suboptimal response by an urgent care clinic. [facility] Medical History Abdominal bloating Acute diarrhea Physical exam COVID-19 Pulmonary embolism Pulmonary embolism Vaginal itching Hx of human papillomavirus infection Candidiasis of mouth and esophagus Abdominal cramping Pneumonia Bile salt-induced diarrhea History of pilonidal cyst Gastritis IBS (irritable bowel syndrome) Hypertension Pre-eclampsia Irritable bowel syndrome with both constipation and diarrhea Gallstones Surgical History H/O cervical polypectomy Hx of esophagogastroduodenoscopy H/O colonoscopy History of surgical removal of pilonidal cyst S/P tonsillectomy History of section History of cholecystectomy Family History Father Heart attack GERD (gastroesophageal reflux disease) Peptic ulcer disease Mother CHF (congestive heart failure) Afib Diverticulitis History of bowel resection Hypothyroid COVID-19 Maternal Aunt Diabetes Maternal Uncle Cancer Maternal Grandmother Cancer Brother Mental health disorder Social History Household Members: Spouse Housing: Apartment Are you a primary primary health care nurse to a significant other at home: No Do you presently have visiting nurse or other home services: Yes (phone visits) Alcohol intake: former Patient Tobacco Use Status: Never used Tobacco e-Cigarette/Vaping Use: Never Used Second Hand Smoke Exposure: No service: No Current occupational status: retired Cognitive needs: No Hearing needs: No Vision needs: No Female Reproductive History Menstrual Age of Menarche: 10 Review of Systems Const Denies daytime sleepiness, Denies excessive sweating, Denies fatigue, Denies fever(s), Denies lethargy, Denies malaise, Denies night sweats, Denies snoring and Denies weight loss Eyes Denies blurry vision and Denies itchy eyes ENT Denies nasal congestion, Denies post nasal drip, Denies sinus pain, Denies sinus pressure and Denies other ( Thrush) Card Denies chest pain, Denies pedal edema, Denies dyspnea, Denies orthopnea and Denies paroxysmal nocturnal dyspnea Resp Reports cough, Denies hemoptysis, Reports excessive phlegm production, Denies dyspnea, Denies snoring and Reports wheezing GI Denies abdominal pain and Denies heartburn Musc Denies myalgias, Denies arthralgias and Denies joint swelling Skin/Breast Denies rash Neuro Denies memory loss and Denies seizure-like activity Psych Denies abnormal sleep pattern, Denies anxiety and Denies memory loss Endo Denies excessive sweating, Denies fatigue and Denies heat intolerance Migue/Lymph Denies easy bruising Aller/Immun Denies itchy eyes, Denies seasonal rhinorrhea and Reports wheezing Physical Exam Vital Signs: Last Vital Signs Pulse 73 09/02/24 13:00 BP 142/72 H 09/02/24 13:00 Pulse Ox 99 09/02/24 13:00 Oxygen Delivery Method Room Air 09/02/24 13:00 BMI result Body Mass Index 33.4 Const General: no acute distress and alert Nutritional Appearance: not obese Orientation/consciousness: Other orientation findings ( oriented) HEENT Head: Yes atraumatic Eyes General: appearance normal, both eyes and all related structures Sclerae: sclerae normal EOM: EOMs intact bilaterally Neck Neck: Yes supple Lymphatic: no lymphadenopathy noted Resp Effort & Inspection: normal respiratory effort and no use of accessory muscles Auscultation: wheezes (Expiratory bilateral) Cardio Rate: regular rate Rhythm: regular rhythm Heart sounds: no gallops, no murmurs and no rubs Skin General skin exam: other ( warm) Extrem General: No clubbing, No cyanosis and No edema Assessment & Plan Assessment & Plan (1) Asthma: Code(s): J45.909 - Unspecified asthma, uncomplicated Category: Medical Qualifiers: Asthma severity: moderate Asthma persistence: persistent Asthma complication type: uncomplicated Qualified Code(s): J45.40 - Moderate persistent asthma, uncomplicated Plan: Baseline controlled on Dupixent, Symbicort, and albuterol MDI. Continue current regimen. Will treat acute bronchitic exacerbation with a course of prednisone taper and azithromycin. Codeine for symptomatic cough relief. (2) Environmental allergies: Code(s): Z91.09 - Other allergy status, other than to drugs and biological substances Category: Medical Plan: Well controlled on Dupixent. Continue current regimen. Medications: New azithromycin For 250 mg dose pack: take 500 mg today (day 1), then 250 mg for 4 days (days 2-5) PO 6 tabs 0RF prednisone Take 4 tabs daily for 5 days, then go down by 1 tab every 5 days 10 mg PO DIRECTED 50 tabs 0RF codeine-guaifenesin 10-100 mg/5 mL 10 mL PO Q4-6H PRN 473 mL 0RF cough Coding Level of Care Code Est Pt Level 4 (09200) Diagnoses Moderate persistent asthma without complication J45.40 Asthma severity: moderate Asthma persistence: persistent Asthma complication type: uncomplicated Environmental allergies Z91.09
== END 2024-09-02 13:22 | disposition home or self-care (01) ==
PROVIDERS: PCP Internal Medicine; Visit Provider Internal Medicine Pulmonary Disease
DX: J45.40 Moderate persistent asthma, uncomplicated (principal); Z91.09 Other allergy status, other than to drugs and biological substances
CPT/HCPCS: 99214

== ENCOUNTER → 2024-09-02 12:31 | Outpatient (BNVA) | payer OTHER, SELFPAY | PROVIDERS: PCP Internal Medicine; Visit Provider Internal Medicine Pulmonary Disease | DX: J45.40 Moderate persistent asthma, uncomplicated (principal); Z91.09 Other allergy status, other than to drugs and biological substances | CPT/HCPCS: 99212 ==

== ENCOUNTER 2024-09-12 10:41 | Outpatient (AMB) | payer OTHER, SELFPAY ==
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
--- OUTSIDE RECORDS SUMMARY | 2024-09-12 10:43 | XMS_ITS | Continuity of Care Document ---
Author Organization [facility], [place] - [facility] Address [address] [place] [phone] Care Team Providers Care Rfid Analyst Name Role Phone [facility] OTHER [facility] OTHER Assessment Encounter Date Assessment Date [...] 2 Ag, QL IA, respiratory specimen 2023 [facility], [address] [place] [address], [phone], 19:41:18 rapid flu (A+B) 2023 [facility], [address] [place] [address], [phone], 19:41:57 Referral None recorded. Procedures None recorded. Surgeries None recorded. Imaging None recorded. Medication Orders prednisone 20 mg tablet 2023 [id number], [address] [facility], [place], [address], 12/11/202 4 16:22:59 prednisone 20 mg tablet 2023 024 [id number], [address] [place], [address], 4 16:24:53 benzonatate 100 mg capsule 2023 024 [id number], [address] [place], [address], 4 16:24:53 Patient TargetsNo targets recorded. Patient InstructionsNo instructions recorded. Reason for Referral None Reported. Results Created Date Observation Date Name Description Value Unit Range Abnormal Flag Note LastModifiedBy Organization Detail LastModifiedTime 08/27/2008/27/2024 rapid flu (A+B) Flu negati ve Not Available [facility] ed [address] [place] [address], [phone], 08/27/2024 19:14:26 08/27/20 24 08/27/2024 rapid SARS CoV 2 Ag, QL IA, respi rator y speci men rapid SARS CoV 2 Ag, QL IA, respiratory specimen negati ve Not Available [facility] ed [address] [place] [address], [phone], 08/27/2024 19:14:26 Result Notes None recorded. Medical [...] Not available Not available Not available 05/05/2023 42865 RxNorm Not Available [facility] - production 4 03:47:03 3052 ibuprofen medicatio n hives Not available Not available 05/05/2023 5640 RxNorm SOB Karen Giraldo MD [address] [facility],[address], [place], [phone] , [facility] 3 17:17:13 3053 Augmentin medicatio n dyspnea Not available Not available 05/05/2023 38505 2 RxNorm Urtic hugo Giraldo MD [address] [facility],[address], [place], [phone], [facility], MIN 3 17:18:03 Medications Name Sig Start [...] Not Available Not Available N ot Available clonidine HCl 0.1 mg tablet TAKE 1 TABLET BY MOUTH ONCE A DAY NEEDED FOR SYMPTOMS OF AGITATION, NEEDED active Not Available Not Available No t Available prednisone 10 mg tablet TAKE 4 TABS DAILY X5 DAYS, THEN 3 TABS X5 DAYS, THEN 2 TABS X5 DAYS, THEN 1 TAB X5 DAYS DIRECTED active Not Available Not Available [...] t Available azithromycin 250 mg tablet TAKE 2 TABLETS BY MOUTH TODAY, THEN TAKE 1 TABLET DAILY FOR 4 DAYS DIRECTED active Not Available Not Available [...] Not Available Not Available No t Available senna 8.6 mg tablet TAKE 2 TABLETS BY MOUTH AT BEDTIME active Not Available Not Available No t Available diltiazem CD 240 mg capsule,exte nded release 24 hr TAKE [...] No t Available prednisone 20 mg tablet TAKE 1 TABLET BY MOUTH EVERY DAY IN THE MORNING FOR 3 DAYS active Not Available Not Available No t Available alendronate 70 mg tablet TAKE 1 TABLET BY MOUTH EVERY WEEK active Not Available Not Available No t Available Milk of Magnesia 400 mg/5 mL oral suspension TAKE 10 ML BY MOUTH AT BEDTIME active Not Available Not Available No t Available sumatriptan 50 mg tablet TAKE 1 TABLET BY MOUTH AT ONSET OF MIGRAINE. MAY REPEAT ONCE AFTER 2 HOURS IF NEEDED active Not Available Not Available No t Available metronidazol e 500 mg tablet Take 1 tablet by oral route. 2021 active Not Available Not Available Not Avai lable melatonin 3 mg tablet TAKE 1 TABLET (3 MG) BY MOUTH IF NEEDED AT BEDTIME FOR SLEEP. active Not Available Not Available No t Available chlorthalido ne 25 mg tablet TAKE 1 TABLET BY MOUTH DAILY active Not Available Not Available Not Available ciprofloxaci n 250 mg tablet TAKE 1 TABLET BY MOUTH TWICE A DAY FOR 3 DAYS active Not Available Not Available No t Available amlodipine 5 mg tablet TAKE 1 TABLET BY MOUTH EVERY DAY active Not Available Not Available No t Available sulfamethoxa zole 800 mg-trimethop rim 160 mg tablet TAKE 1 TABLET BY MOUTH EVERY TWELVE HOURS FOR 7-10 DAYS active Not Available Not Available No t Available omeprazole 40 mg capsule,gerardo yed release TAKE 1 CAPSULE BY MOUTH TWICE A DAY active Not Available Not Available No t Available acetaminophe n 500 mg tablet TAKE 1 TABLET BY MOUTH EVERY 6 HOURS NEEDED FOR PAIN OR FEVER active Not Available Not Available No t Available calcium 600 mg (as calcium carbonate 1,500 mg) tablet TAKE 1 TABLET BY MOUTH TWICE DAILY IN THE MORNING WITH BREAKFAST AND IN THE EVENING WITH DINNER active Not Available Not Available Not Available amitriptylin e 25 mg tablet TAKE [...] No t Available benzonatate 100 mg capsule TAKE 1 CAPSULE 3 TIMES A DAY NEEDED FOR 7 DAYS, FOR COUGH. active Not Available Not Available N ot Available trazodone 150 mg tablet TAKE 1 TABLET BY MOUTH DAILY AT BEDTIME active Not Available Not Available N ot Available clotrimazole -betamethaso ne 1 %-0.05 % [...] Not Available Not Available No t Available codeine 10 mg-guaifenes in 100 mg/5 mL oral liquid TAKE 10 ML BY MOUTH EVERY 4 TO 6 HOURS NEEDED FOR COUGH active Not Available Not Available No t [...] Not Available Not Available No t Available levofloxacin 750 mg tablet TAKE 1 [...] MOUTH DAILY active Not Available Not Available Not Available ondansetron 4 mg disintegrati ng tablet DISSOLVE 1 TABLET BY MOUTH EVERY 6 HOURS NEEDED FOR NAUSEA AND VOMITING active Not Available Not Available No t Available fluoxetine 20 mg capsule TAKE 1 CAPSULE BY MOUTH EVERY DAY active Not Available Not Available No t Available fluticasone propionate 50 mcg/actuatio n nasal spray,suspen chantale INSTILL 2 SPRAYS BY INTRANASAL ROUTE EVERY DAY active Not Available Not [...] Not Available No t Available cyclobenzapr ine 5 mg tablet TAKE 1 TABLET BY MOUTH AT BEDTIME NEEDED FOR MUSCLE SPASM FOR 7 DAYS active Not Available Not Available No t Available Alcohol Prep Pads active Not Available Not Available Not Available metoprolol tartrate 25 mg tablet TAKE 1 TABLET BY MOUTH DAILY active Not Available Not Available Not Available Gas Relief Extra Strength 125 mg chewable tablet CHEW 1 TABLET (125 MG) ORALLY 4 TIMES A DAY FOR ABDOMINAL DISTENTION active Not Available Not Available N ot Available pregabalin 75 mg capsule TAKE 1 CAPSULE BY MOUTH TWICE DAILY active Not Available Not Available No t Available chlorhexidin e gluconate 0.12 % mouthwash RINSE WITH 15 ML IN MOUTH NEEDED WOUND CARE FOR UP TO 14 DAYS DIRECTED active Not Available Not Available No t Available BD Sharps Surgical Instrument Maker active Not Available Not Available No t Available fluocinolone acetonide oil 0.01 % ear drops APPLY [...] Updated DateTime 4 99 % 99 % 83627.5 36 g 16 /min 82 /min 98 [degF] 164 mm[Hg] 72 mm[Hg] Not Available [facility] - production 4 16:20:14 Social History None recorded. Functional Status None recorded. Mental Status None recorded. Family History Nothing Reported. Medical History No medical history recorded. Gynecological HistoryNo gynecological history recorded. Obstetrics History GPAL:G 0 P 0 0 0 0 Past Encounters Encounter ID Performer Location Encounter Start Date Encounter Closed Date Diagnosis/Indication Diagnosis SNOMED-CT Code Diagnosis ICD10 Code [id number] Domi Garland MD [facility] [address] [place] [phone] 08/27/2024 16:20:07 08/28/2024 00:15:45 Acute exacerbation of chronic obstructive pulmonary disease 535303023 J44.1 Health Concerns Section Related Observation LastModified by Organization Detai ls LastModified Time None Recorded Concern Status LastModified by Organization Details LastModified Time None Recorded Payers Encounter Date Sequence Insurance Name Policy Number Policy Barrow Covered Member ID Barrow Member ID Guarantor Name 08/27/2024 1 [facility] - DOS ON OR AFTER 2022 - DUAL ELIGIBLE - JAIL OPTIONS AND ONE CARE (MEDICARE REPLACEMENT/AD VANTAGE - HMO) Yoselin Rodríguez [id number] Yoselin Rodríguez Notes Date Note Type Note [...] any additional information to process this visit. Tipple Repairer Organization Information for Shantanu Olson [employer] Name: [facility] Address: [address] [place] [address], [facility] Teacher: Zachary Heredia MD CLIA No.: [id number] Tipple Repairer POC Test Results from Shantanu Olson - ALS Rapid COVID antigen (16:14:44) COVID: - Attachments uploaded as part of this test result can be found under Documents section. Rapid influenza antigen (16:14:45) Flu: - Attachments uploaded as part of this test result can be found under Documents section. .................... .................... .................... .................... .................... .................... .................... . Tipple Repairer Note From Shantanu Olson: Pt co dry [...] clear bilaterally, Covid and flu swab neg. [facility] Dada contacted and 20mg prednisone given PO, right meds, dose, date and route. RX called in for prednisone and benzonatate and continue with nebulizer treatments.. Pt education on signs indicating the ER. Pt advised to continue with vacuum furnace operator appt. Pt advised to follow up with PCP. .................... .................... .................... .................... .................... .................... .................... . [facility] Consulted: Domi Garland .................... .................... .................... .................... .................... .................... .................... . Disposition: Fulfilled Domi Garland MD [address] [place] [address],[address], [place], [phone], [employer] [facility] 08/27/2024 19:14:58 OBGyn Episode No OBEpisode recorded.
--- OUTSIDE RECORDS SUMMARY | 2024-09-12 10:43 | XMS_ITS | Data Portability ---
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 I have reviewed and agree with the Assessment and Plan as documented by the Skip Hoist Operator [email or web address] Not available 05/05/2023 17:13:47 08/27/2024 08/27/2024 service [...] 2 Ag, QL IA, respiratory specimen 2023 [facility], [address] [place] [address], [phone], 19:41:18 rapid flu (A+B) 2023 [facility], [address] [place] [address], [phone], 19:41:57 Referral None recorded. Procedures None recorded. Surgeries None recorded. Imaging None recorded. Medication Orders metronidazo le 500 mg tablet 2021 022 [id number] [address] [place] [address], [id number], 2 18:29:57 metronidazo le 500 mg tablet 2021 022 [email or web address] Not available 2 09:06:30 Augmentin 875 mg-125 mg tablet 2022 023 [id number], [address] [place] [address], [id number], 3 16:07:33 azithromyci n 250 mg tablet 2022 023 [facility] [address] [place] [address], [address], 3 17:11:16 prednisone 20 mg tablet 2023 024 [email or web address] [address] [place] [address], [address], 4 16:22:59 prednisone 20 mg tablet 2023 024 [facility] [address] [place] [address], [address], 4 16:24:53 benzonatate 100 mg capsule 2023 024 [id number] [address] [place] [address], [address], 4 16:24:53 Patient TargetsNo targets recorded. Patient InstructionsNo instructions recorded. Reason for Referral None Reported. Results Created Date Observation Date Name Description Value Unit Range Abnormal Flag Note LastModifiedBy Organization Detail LastModifiedTime 08/27/20 24 08/27/2024 rapid flu (A+B) Flu negati ve Not Available Main - [facility] ed [address] [place] [address], [phone], 08/27/2024 19:14:26 08/27/20 24 08/27/2024 rapid SARS CoV 2 Ag, QL IA, respi rator y speci men rapid SARS CoV 2 Ag, QL IA, respiratory specimen negati ve Not Available Main - [facility] ed [address] [place], [address], 08/27/2024 19:14:26 Result Notes None recorded. Medical [...] Not available Not available Not available 05/05/2023 94221 RxNorm Not Available [facility] - production 4 03:47:03 3052 ibuprofen medicatio n hives Not available Not available 05/05/2023 5640 RxNorm SOB Karen Giraldo MD [address] [place] [address],[address], [place], [phone], [employer] 3 17:17:13 3053 Augmentin medicatio n dyspnea Not available Not available 05/05/2023 36990 2 RxNorm Urtic aria Karen Giraldo MD [address] [place] [address],[address], [place], [phone], [employer] 3 17:18:03 Medications Name Sig Start Date [...] Not Available No t Available [employer] Administrator active Not Available Not Available No t [...] 3 98 % 98 % 71 /min 97876.8 8 g 97.1 [degF] 16 /min 181 mm[Hg] 79 mm[Hg] Not Available [facility] - production 3 16:05:25 Date Recorded Respiratory rate Body temperature Oxygen saturation Oxygen saturation in Arterial blood by Pulse oximetry Heart rate Systolic blood pressure Diastolic blood pressure Provider Name and Address Organization Details Last Updated DateTime 3 12 /min 98.4 [degF] 98 % 98 % 66 /min 152 mm[Hg] 74 mm[Hg] Not Available [facility] - production 3 17:08:28 Date Recorded Body weight Provider Name an d Address Organization Details Last Updated DateTime 05/05/2023 98939.82 g Lexy Mendoza [address] [place] [address],[address], [place], [phone], [place] [employer] 05/05/2023 17:09:15 Date Recorded Oxygen saturation Oxygen saturation in Arterial blood by Pulse oximetry Body weight Respiratory rate Heart rate Body temperature Systolic blood pressure Diastolic blood pressure Provider Name and Address Organization Details Last Updated DateTime 4 99 % 99 % 90017.5 36 g 16 /min 82 /min 98 [degF] 164 mm[Hg] 72 mm[Hg] Not Available [facility] 4 16:20:14 Date Recorded Body temperature Heart rate Respiratory rate Oxygen saturation Oxygen saturation in Arterial blood by Pulse oximetry Systolic blood pressure Diastolic blood pressure Provider Name and Address Organization Details Last Updated DateTime 2 98.6 [degF] 80 /min 16 /min 100 % 100 % 161 mm[Hg] 78 mm[Hg] Orlin Ruiz MD [address] [facility],[address], [place], [phone] [place], [place] [employer] 2 18:30:24 Social History None recorded. Functional Status None recorded. Mental Status None recorded. Family History Nothing Reported. Medical History No medical history recorded. Gynecological HistoryNo gynecological history recorded. Obstetrics History GPAL:G 0 P 0 0 0 0 Past Encounters Encounter ID Performer Location Encounter Start Date Encounter Closed Date Diagnosis/Indication Diagnosis SNOMED-CT Code Diagnosis ICD10 Code [id number] Orlin Ruiz MD Main - [facility] [address] [place] [phone] 01/05/2022 18:15:37 06/07/2022 14:14:50 Acute pelvic pain 497260596 R10.2 [id number] Andrea Thorpe MD Main - [facility] [address] [place] [phone] 04/24/2023 16:05:20 04/24/2023 23:29:29 Acute otitis media 5123754 H66.92 [id number] Karen Giraldo MD Main - [facility] [address] [place] [phone] 05/05/2023 17:08:26 05/07/2023 07:15:01 Acute otitis media 4435521 H66.92 [id number] Domi Garland MD Main - [facility] [address] [place] [phone] 08/27/2024 16:20:07 08/28/2024 00:15:45 Acute exacerbation of chronic obstructive pulmonary disease 110001235 J44.1 Health Concerns Section Related Observation LastModified by Organization Detai ls LastModified Time None Recorded Concern Status LastModified by Organization Details LastModified Time None Recorded Advance Directives Directive None Recorded Payers Encounter Date Sequence Insurance Name Policy Number Policy Barrow Covered Member ID Barrow Member ID Guarantor Name 01/05/2022 1 [employer] - DOS PRIOR TO 2022 - DUAL ELIGIBLE (MEDICARE REPLACEMENT/AD VANTAGE - HMO) Yoselin Rodríguez [id number] Yoselin Rodríguez 04/24/2023 1 [employer] - DOS ON OR AFTER 2022 - DUAL ELIGIBLE - SNF OPTIONS AND ONE CARE (MEDICARE REPLACEMENT/AD VANTAGE - HMO) Yoselin Rodríguez [id number] Yoselin Rodríguez 05/05/2023 1 [employer] - DOS ON OR AFTER 2022 - DUAL ELIGIBLE - SNF OPTIONS AND ONE CARE (MEDICARE REPLACEMENT/AD VANTAGE - HMO) Yoselin Rodríguez [id number] Yoselin Rodríguez 08/27/2024 1 [employer] - DOS ON OR AFTER 2022 - DUAL ELIGIBLE - SNF OPTIONS AND ONE CARE (MEDICARE REPLACEMENT/AD VANTAGE - HMO) Yoselin Rodríguez [id number] Yoselin Rodríguez Notes Date Note Type Note [...] her previous UTI. Orlin Ruiz MD [address] [facility],[address], [place], [address], [employer] 01/05/2022 18:31:02 04/24/2023 text/html HPI: Severe left ear ache .................... .................... .................... .................... .................... .................... .................... . CRC Nursing Assessment: Comments: [facility] triage nurse calling on behalf of member with request for MIH visit for complaints of outer ear discomfort for 3 days Aware MIH visit does not include inner ear eval. Request inst[facility] visit to eval unsure fever/chills Verify member name/- Andrea Thorpe MD [address] [facility],[address], [place], [address], [employer] 04/24/2023 16:07:52 05/05/2023 text/html HPI: mbr with know ear infection for two weeks/nasal congestion/moderate pain, recent ED visit ordered Fluconazole, mbr looking for oral antibiotics, requesting MIH. Protocol Used: Ear - Discharge Protocol-Based Disposition: Consider [facility], [facility] Community Clinician, or PCP visit within 24 [...] .................... .................... .................... .................... .................... .................... ........... Skip Hoist Operator Note From Estrada Jain: Dispatched to the [...] Patient noted to have a steady gait. [facility] contacted to discuss patient presentation, complaints, and clinical findings. [facility] orders Azythromycin 500mg PO be given to [...] . Disposition: Fulfilled Karen Giraldo MD [address] [facility],[address], [place], [address], MIN MARTELL 05/05/2023 22:29:41 08/27/2024 text/html HPI: Member calling [...] any additional information to process this visit. Skip Hoist Operator Organization Information for Shantanu Olson Business Legal Name: [facility] Transportation Address: [address] [place] [address], [place] [address], Broke Beater Machine Operator: Zachary Heredia MD CLIA No.: [id number] Skip Hoist Operator POC Test Results from Shantanu Olson Rapid COVID antigen (16:14:44) COVID: - Attachments uploaded as part of this test result can be found under Documents section. Rapid influenza antigen (16:14:45) Flu: - Attachments uploaded as part of this test result can be found under Documents section. .................... .................... .................... .................... .................... .................... .................... . Skip Hoist Operator Note From Shantanu Olson: Pt co dry [...] clear bilaterally, Covid and flu swab neg. [facility] Dada contacted and 20mg prednisone given PO, right meds, dose, date and route. RX called in for prednisone and benzonatate and continue with nebulizer treatments.. Pt education on signs indicating the ER. Pt advised to continue with caustic cresylate shift superintendent appt. Pt advised to follow up with PCP. .................... .................... .................... .................... .................... .................... .................... . [facility] Consulted: Domi Garland .................... .................... .................... .................... .................... .................... .................... . Disposition: Fulfilled Domi Garland MD [address] [facility],[address] [facility], [place], [address], Ruzuku Zeynep ActivNetworksMIN THRASHER 08/27/2024 19:14:58 OBGyn Episode No OBEpisode recorded.
[2024-09-12 10:51] VITALS: BP 126/82; PULSE 60; BMI 34.1
--- NOTE | 2024-09-12 10:51 | MHC.OFFVIS ---
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, unspecified Intake Note: New patient with ekg c/o chest pain when bp is up Product Assurance Engineer Required: No Allergies seafood Allergy (Severe, Verified 08/06/24 13:39) Anaphylaxis vancomycin [VANCOMYCIN] Allergy (Severe, Verified 08/06/24 13:39) ANAPHYLAXIS, hives aspirin [ASPIRIN] Allergy (Intermediate, Verified 08/06/24 13:39) rash, asthma codeine [CODEINE] Allergy (Mild, Verified 08/06/24 13:39) rash egg [EGGS] Allergy (Mild, Verified 08/06/24 13:39) VOMITING peanut [PEANUTS] Allergy (Mild, Verified 08/06/24 13:39) HIVES,DIARRHEA amoxicillin [From Augmentin] Allergy (Verified 08/06/24 13:39) hives, swelling, difficulty breathing clavulanic acid [From Augmentin] Allergy (Verified 08/06/24 13:39) hives, swelling mushroom Allergy (Verified 08/06/24 13:39) Rash lactose Adverse Reaction (Intermediate, Verified 08/06/24 13:39) diarrhea Medication List - Last Reconciled 09/12/24 by Efren Rausch MD acetaminophen (Tylenol Extra Strength) 500 mg PO Q6H PRN 30 days albuterol sulfate 90 mcg/actuation 90 mcg inhalation DAILY albuterol sulfate 2.5 mg inhalation TID PRN calcium carbonate 600 mg PO BID chlorthalidone 25 mg PO DAILY 90 days codeine-guaifenesin 10-100 mg/5 mL 10 mL PO Q4-6H PRN dicyclomine 20 mg PO QID 30 days dupilumab (Dupixent) 200 mg (1.14 mL) subcut Q2W ergocalciferol (vitamin D2) 1,250 mcg PO QWEEK estradiol 0.01%(0.1mg/gram) 1 g vaginal DAILY 30 days fluoxetine 20 mg PO DAILY hydroxyzine HCl 10 - 20 mg PO Q6H PRN lisinopril 40 mg PO DAILY 90 days lorazepam 1 mg PO DAILY PRN magnesium hydroxide (Milk of Magnesia) 10 mL PO BEDTIME melatonin 3 mg PO BEDTIME omeprazole 40 mg PO BID ondansetron 4 mg PO Q8H PRN 7 days sumatriptan succinate 50 mg PO DAILY PRN Symbicort 160-4.5 mcg/actuation (budesonide-formoterol) 2 puffs PO BID NS trazodone 100 mg PO DAILY HPI Comments Details: Yoselin was referred here for further evaluation due to increasing symptoms exertional shortness of breath and episodes of chest pain especially in the setting of elevated blood pressures. She says she has had longstanding issues with elevated blood pressure and more recently her medicines have been uptitrated. She says a blood pressure especially elevates when she was started on steroids for asthma. She continues to have significant symptoms exertional shortness of breath and says the symptoms are not similar to her asthma symptoms. Symptoms are getting worse. She does not have any significant exertional chest pain. She denies any prolonged palpitation irregular heartbeat. No lightheadedness, syncope. At home she says a blood pressures till further elevated as compared to today's reading in the office which appears to be within normal limits. She denies any orthopnea, PND, leg edema. [facility] Medical History Abdominal bloating Acute diarrhea Physical exam COVID-19 Pulmonary embolism Pulmonary embolism Vaginal itching Hx of human papillomavirus infection Candidiasis of mouth and esophagus Abdominal cramping Pneumonia Bile salt-induced diarrhea History of pilonidal cyst Gastritis IBS (irritable bowel syndrome) Hypertension Pre-eclampsia Irritable bowel syndrome with both constipation and diarrhea Gallstones Surgical History H/O cervical polypectomy Hx of esophagogastroduodenoscopy H/O colonoscopy History of surgical removal of pilonidal cyst S/P tonsillectomy History of section History of cholecystectomy Family History Father Heart attack GERD (gastroesophageal reflux disease) Peptic ulcer disease Mother CHF (congestive heart failure) Afib Diverticulitis History of bowel resection Hypothyroid COVID-19 Maternal Aunt Diabetes Maternal Uncle Cancer Maternal Grandmother Cancer Brother Mental health disorder Social History Household Members: Spouse Housing: Apartment Are you a primary direct care professional to a significant other at home: No Do you presently have visiting nurse or other home services: Yes (phone visits) Alcohol intake: former Patient Tobacco Use Status: Never used Tobacco e-Cigarette/Vaping Use: Never Used Second Hand Smoke Exposure: No service: No Current occupational status: retired Cognitive needs: No Hearing needs: No Vision needs: No Female Reproductive History Menstrual Age of Menarche: 10 Review of Systems Const Denies chills, Denies daytime sleepiness, Denies fatigue, Denies fever(s), Denies frequent falls, Denies poor appetite, Denies snoring, Denies stops breathing during sleep, Denies weakness, Denies weight gain and Denies weight loss Eyes Denies loss of vision ENT Denies dizziness and Denies hearing loss Card Denies chest pain, Denies claudication, Denies leg edema, Denies lightheadedness, Denies palpitations, Denies dyspnea, Denies dyspnea on exertion and Denies orthopnea Resp Denies cough, Denies excessive phlegm production, Denies dyspnea, Denies dyspnea on exertion, Denies snoring and Denies wheezing GI Denies abdominal pain, Denies hematochezia, Denies change in bowel habits, Denies nausea and Denies vomiting Denies urinary frequency and Denies dysuria Musc Denies arthralgias, Denies muscle weakness, Denies numbness and Denies other (frequent falls) Skin/Breast Denies nail changes and Denies rash Neuro Denies Abnormal speech present, Denies dizziness, Denies frequent falls, Denies loss of vision, Denies memory loss, Denies numbness and Denies weakness Psych Denies depression and Denies memory loss Endo Denies fatigue and Denies palpitations Migue/Lymph Reports easy bruising and Reports other (anemia) Aller/Immun Denies wheezing Physical Exam Vital Signs: Last Vital Signs Pulse 60 09/12/24 10:51 BP 126/82 09/12/24 10:51 BMI result Body Mass Index 34.1 Const General: cooperative, comfortable, no acute distress, alert and awake Nutritional Appearance: obese Orientation/consciousness: patient oriented x3 HEENT Head: Yes normocephalic and Yes atraumatic Neck Neck: Yes trachea midline, Yes supple and Yes no JVD Resp Effort & Inspection: normal respiratory effort Auscultation: clear to auscultation bilaterally Cardio Jugular venous distension: no JVD Palpation: normal PMI Rate: regular rate Rhythm: regular rhythm Heart sounds: S1 normal heart sound present, S2 normal heart sound present, no click, no gallops, no murmurs and no rubs GI Auscultation: normal bowel sounds Skin General skin exam: no rashes or lesions noted Neuro General: patient oriented x3 and no focal motor deficits Speech: No Abnormal speech present Extrem General: Yes no clubbing, cyanosis or edema Office Procedures EKG Details: EKG shows normal sinus rhythm with normal EKG [id number], Complete Assessment & Plan Assessment & Plan (1) Chest pain: Code(s): R07.9 - Chest pain, unspecified Category: Medical Qualifiers: Chest pain type: unspecified Qualified Code(s): R07.9 - Chest pain, unspecified Plan: Patient with recurrent history of chest pain in the setting of elevated blood pressure. She says her blood pressure reading today much better than which she usually gets at home. Question spuriously low on today's exam. She has multiple risk factors for coronary disease and will suggest her to undergo vasodilating myocardial perfusion imaging due to limited exercise capacity. Also possible that the chest pain could be related to other etiology such as hypertrophic cardiomyopathy and/or hypertensive heart disease or pulmonary hypertension. Will obtain echocardiogram to further assess for the same. Management based on the findings of the test results. (2) HTN (hypertension), benign: Code(s): I10 - Essential (primary) hypertension Category: Medical Plan: Hypertension which seems to be well optimized on today's exam. Question that current antihypertensive therapies finally effective, especially off steroid therapy. Have advised her to monitor blood pressure at home and maintain a log. Follow up in 6 weeks time with her blood pressure monitor in the office to calibrate. Advised stress mitigation strategies advise low-salt diet. Advise weight loss strategies. Follow up in the clinic in 6 weeks time, sooner p.r.n.. Thank you for allowing me to partake in his care Orders: Orders CA lexiscan stress w fatou Today R07.9 - Chest pain, unspecified CA echo transthoracic complete Today R07.9 - Chest pain, unspecified Coding Level of Care Code New Pt Level 4 (06811) Complex EM visit Add On G2211 Diagnoses Chest pain, unspecified type R07.9 Chest pain type: unspecified HTN (hypertension), benign I10 CPT Codes EKG - CPT: 52228-[id number], Complete ([id number])
== END 2024-09-12 11:25 | disposition home or self-care (01) ==
PROVIDERS: PCP Internal Medicine; Visit Provider Internal Medicine Cardiovascular Disease
DX: R07.9 Chest pain, unspecified (principal); I10 Essential (primary) hypertension
CPT/HCPCS: 93010; 99214; G2211

== ENCOUNTER → 2024-09-12 10:41 | Outpatient (BNVA) | payer OTHER, SELFPAY | PROVIDERS: PCP Internal Medicine; Visit Provider Internal Medicine Cardiovascular Disease | DX: R07.9 Chest pain, unspecified (principal); I10 Essential (primary) hypertension | CPT/HCPCS: 93005; 99212 ==

== ENCOUNTER 2024-09-15 13:18 | Outpatient (AMB) | payer OTHER, SELFPAY ==
[2024-09-15 13:26] VITALS: BP 128/76; BMI 34.1
--- NOTE | 2024-09-15 13:26 | A.OFFVIS_ITS ---
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 Services: Shot Polisher And Inspector Present Information Interpreted: clinical only Automotive Service Technician: Automotive Service Technician Present Allergies seafood Allergy (Severe, Verified 09/15/24 13:28) Anaphylaxis vancomycin [VANCOMYCIN] Allergy (Severe, Verified 09/15/24 13:28) ANAPHYLAXIS, hives aspirin [ASPIRIN] Allergy (Intermediate, Verified 09/15/24 13:28) rash, asthma codeine [CODEINE] Allergy (Mild, Verified 09/15/24 13:28) rash egg [EGGS] Allergy (Mild, Verified 09/15/24 13:28) VOMITING peanut [PEANUTS] Allergy (Mild, Verified 09/15/24 13:28) HIVES,DIARRHEA amoxicillin [From Augmentin] Allergy (Verified 09/15/24 13:28) hives, swelling, difficulty breathing clavulanic acid [From Augmentin] Allergy (Verified 09/15/24 13:28) hives, swelling mushroom Allergy (Verified 09/15/24 13:28) Rash lactose Adverse Reaction (Intermediate, Verified 09/15/24 13:28) diarrhea Medication List - Last Reconciled 09/15/24 by Ale Francisco CNM acetaminophen (Tylenol Extra Strength) 500 mg PO Q6H PRN 30 days albuterol sulfate 90 mcg/actuation 90 mcg inhalation DAILY albuterol sulfate 2.5 mg inhalation TID PRN calcium carbonate 600 mg PO BID chlorthalidone 25 mg PO DAILY 90 days dicyclomine 20 mg PO QID 30 days dupilumab (Dupixent) 200 mg (1.14 mL) subcut Q2W ergocalciferol (vitamin D2) 1,250 mcg PO QWEEK estradiol 0.01%(0.1mg/gram) 1 g vaginal DAILY 30 days fluoxetine 20 mg PO DAILY hydroxyzine HCl 10 - 20 mg PO Q6H PRN lisinopril 40 mg PO DAILY 90 days lorazepam 1 mg PO DAILY PRN magnesium hydroxide (Milk of Magnesia) 10 mL PO BEDTIME melatonin 3 mg PO BEDTIME omeprazole 40 mg PO BID ondansetron 4 mg PO Q8H PRN 7 days sumatriptan succinate 50 mg PO DAILY PRN Symbicort 160-4.5 mcg/actuation (budesonide-formoterol) 2 puffs PO BID NS trazodone 100 mg PO DAILY Post menopausal: Yes (2009) HPI 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 Pap smears in [facility] system reviewed last year's Pap was negative with negative HPV previous Pap in 2020 was negative with positive HPV. Previous Pap before the which is the 1st in the system was in 2019 negative with negative HPV. Whit ent does not have any memory of any previous abnormal Paps. She has no particular worries about STDs but welcomes testing both during the exam and with blood work just to be sure. She recently has just recovered from 1 month of severe asthma for which she needed her inhaler treatments as well as prednisone and Zithromax. She is waiting to get the COVID booster vaccine and 1 other it will be getting them after new years. She had been having a sensation of pressure and she says her cutting table operator first recommended she check gynecology teacher to see if she had any degree of prolapse. She says she does hold her urine for long periods of time but she still feels like she does not quite completely empty all the time and has to go back. She also shared during the exam on questioning that 3 moles that she has in her genital area have been there for about 30 years and there was an attempt to burn them off or freeze them off but they just kept coming back. She said that they were going to cut them off a few years ago but she was on blood thinners for a period of months because of having had a blood clot in her lung. She says they did not know why she had the blood clot in her lung, there were various maybe it traveled from leg veins or had something to do with her coughing and asthma at time. She also says she is getting worked up by the chassis driver because she a positive IQRA test. [facility] Medical History Abdominal bloating Acute diarrhea Physical exam COVID-19 Pulmonary embolism Pulmonary embolism Vaginal itching Hx of human papillomavirus infection Candidiasis of mouth and esophagus Abdominal cramping Pneumonia Bile salt-induced diarrhea History of pilonidal cyst Gastritis IBS (irritable bowel syndrome) Hypertension Pre-eclampsia Irritable bowel syndrome with both constipation and diarrhea Gallstones Surgical History H/O cervical polypectomy Hx of esophagogastroduodenoscopy H/O colonoscopy History of surgical removal of pilonidal cyst S/P tonsillectomy History of section History of cholecystectomy Family History Father Heart attack GERD (gastroesophageal reflux disease) Peptic ulcer disease Mother CHF (congestive heart failure) Afib Diverticulitis History of bowel resection Hypothyroid COVID-19 Maternal Aunt Diabetes Maternal Uncle Cancer Maternal Grandmother Cancer Brother Mental health disorder Social History Household Members: Spouse Housing: Apartment Are you a primary health care coordinator to a significant other at home: No Do you presently have visiting nurse or other home services: Yes (phone visits) Alcohol intake: former Patient Tobacco Use Status: Never used Tobacco e-Cigarette/Vaping Use: Never Used Second Hand Smoke Exposure: No service: No Current occupational status: retired Cognitive needs: No Hearing needs: No Vision needs: No Female Reproductive History Menstrual Age of Menarche: 10 control method: none Total pregnancies: 1 Full term: 1 Date of last pap smear: 06/01/23 (negative-hpv,2020 neg+hpv) Date of Mammogram: 05/01/24 (negative) Physical Exam Vital Signs: Last Vital Signs BP 128/76 09/15/24 13:26 BMI result Body Mass Index 34.1 Const General: healthy appearing, comfortable, no acute distress, well developed and alert Nutritional Appearance: average body habitus Orientation/consciousness: patient oriented x3 Limitations: no limitations HEENT Head: Yes normocephalic Neck Neck: Yes normal visual inspection Chest Chest palpation & inspection: normal inspection of the chest Breast/axilla inspection: normal inspection of the breasts and normal inspection of the axillae Breast/axilla palpation: normal palpation of the breasts and normal palpation of the axillae Resp Effort & Inspection: normal respiratory effort GI Inspection: Yes normal to inspection, No Abdominal wall edema and No distended Palpation (GI): Soft to palpation and nontender Other: Three large pedunculated moles on genital Vagina is moist atrophic thin mucosa slightly reddened consistent with po stmenopausal atrophic changes. Cervix tightly closed nulliparous smooth small. Uterus small midposition not prolapsed at all. nontender. adnexa nontender. good tone with Kegel. General: Yes bladder normal to palpation External Female Exam: normal external appearance and normal appearance of the urethra Speculum Exam - Vagina: normal appearance of the vagina, normal palpation and normal vaginal discharge Speculum Exam - Cervix: normal appearance of the cervix, normal palpation and nontender Bimanual exam- vagina & uterus: normal bimanual exam, normal palpation, uterine size normal, bladder normal to palpation, consistency normal, normal palpation, uterine mobility normal, uterine shape normal, No Cervical tenderness present, non-tender and no cervical motion tenderness Bimanual Exam- Adnexa, other: normal adnexae, no masses, normal and No adnexal tenderness Neuro General: patient oriented x3 Results Reviewed Results Reviewed: Name: MarcosYoselin Skinner Age/Sex: 62/F Attending: Ale Francisco CNM : 1960 Submitted by: Ale Francisco CNM Copies to: Iqra Bach MD MR #: [id number] Status: DEP REF Collected: 05/31/23 Location: [facility] Received: 06/01/23 Interpretation Satisfactory for evaluation. Negative for intraepithelial lesion or malignancy. Fungal organisms consistent with Lakeshia species. HPV mRNA E6/E7: NOT DETECTED This assay detects E6/E7 viral messenger RNA (mRNA) from 14 high-risk HPV types (16, 18, 31, 33, 35, 39, 45, 51, 52, 56, 58, 59, 66, 68) HPV testing performed by [facility], [place], [place]. See reference laboratory portion of the EMR for entire report. Clinical Information LMP: No menses Previous PAP test: 07/19/21, abnormal Other history: +HPV, personal history of other infectious and parasitic diseases Material Received ThinPrep-Cervical Copies To Iqra Bach MD [address] [place], [place] [id number] [address] Rosa Dougherty [place], [place] [id number] Electronically Signed By: Yajaira Dash 06/12/23 1411 The Pap Test is a screening procedure with the inherent possibility of both false negative and false positive results. Results should be interpreted in the context of historic and current clinical findings. Reliability of the Pap Test is enhanced by performing the test on a regular repetitive basis. Patient: Yoselin Rodríguez Brody Age/Sex: 62/F MR#: [id number] Page 1 of 1 Name: MarcosYoselin Skinner Age/Sex: 60/F Attending: Lucina Daniel CNM : 1960 Submitted by: Lucina Daniel CNM Copies to: IQRA BACH MD MR #: [id number] Status: DEP REF Collected: 07/18/21 Location: .LAB Received: 07/19/21 Interpretation Satisfactory for evaluation. Negative for intraepithelial lesion or malignancy. Moderate inflammation and blood present. Atrophic. HPV mRNA E6/E7: DETECTED This assay detects E6/E7 viral messenger RNA (mRNA) from 14 high-risk HPV types (16, 18, 31, 33, 35, 39, 45, 51, 52, 56, 58, 59, 66, 68) HPV Type 16 RNA: Not Detected HPV Type 18/45 RNA: Not Detected HPV testing performed by [facility], [place], [place]. See reference laboratory portion of the EMR for entire report. Clinical Information LMP: Menopausal Previous PAP test: 2018, WNL Material Received ThinPrep- Cervical Copies To IQRA BACH MD [address] [place] [address] [phone] Lucina Daniel [address] [place] [address] Electronically Signed By: Kamaljit Andrew MD ------ 02/04/2019 Pap was negative, with negative HPV. Assessment & Plan Assessment & Plan (1) Postmenopausal atrophic vaginitis: Comment: Patient states she is on estrogen cream which helps her suggested having a conversation about history of embolus with that prescribing provider. Code(s): N95.2 - Postmenopausal atrophic vaginitis Category: Medical (2) History of pulmonary embolism: Code(s): Z86.711 - Personal history of pulmonary embolism Category: Medical (3) Encounter for screening examination for sexually transmitted disease: Code(s): Z11.3 - Encounter for screening for infections with a predominantly sexual mode of transmission Category: Medical (4) Women's annual routine gynecological examination: Code(s): Z01.419 - Encounter for gynecological examination (general) (routine) without abnormal findings Category: Medical Plan -----Discussed in this visit the following: healthy balanced diet, regular and consistent exercise, getting recommended health screens, doing the best she can for her particular health concerns, kegel exercises, pap smear screening and followup recommendations, mammography screening and SBE, normal changes in cycles in her life stage--- . She had her mammogram and says everything was fine.. Discussed that she has a normal atrophic changes that are expected postmenopausally with the thinning of the mucosa. She said that the only thing that helps her as the estrogen cream but she did not remember who was prescribing for her I did question her about this because of her stated history of the blood clot in her lung, and that often history blood clots is a contraindication to prescription of estrogen . I suggest that she speak with the provider who prescribes it for her, about her history as perhaps if there was some other indication found for the blood clot it may not be as much of a concern. Testing ordered for STIs via blood work that she can get done the next time she gets her blood drawn for other providers. Orders: Orders Hepatitis B Surface Antigen Today N95.2 - Postmenopausal atrophic vaginitis, Z01.419 - Encounter for gynecological examination (general) (routine) without abnormal findings, Z11.3 - Encounter for screening for infections with a predominantly sexual mode of transmission, Z86.711 - Personal history of pulm onary embolism HIV Ab/Ag Today N95.2 - Postmenopausal atrophic vaginitis, Z01.419 - Encounter for gynecological examination (general) (routine) without abnormal findings, Z1 1.3 - Encounter for screening for infections with a predominantly sexual mode of transmission, Z86.711 - Personal history of pulmonary embolism Syphilis Screen Today N95.2 - Postmenopausal atrophic vaginitis, Z01.419 - Encounter for gynecological examination (general) (routine) without abnormal findings, Z11.3 - Encounter for screening for infections with a predominantly sexual mode of transmission, Z86.711 - Personal history of pulmonary embolism Hepatitis C Antibody Today N95.2 - Postmenopausal atrophic vaginitis, Z01.419 - Encounter for gynecological examination (general) (routine) without abnormal findings, Z11.3 - Encounter for screening for infections with a predominantly sexual mode of transmission, Z86.711 - Personal history of pulmonary embolism Coding Level of Care Code Est Pt Prev Care 40-64y(96027) Diagnoses Postmenopausal atrophic vaginitis N95.2 History of pulmonary embolism Z86.711 Encounter for screening examination for sexually transmitted disease Z11.3 Women's annual routine gynecological examination Z01.419
== END 2024-09-15 14:15 | disposition home or self-care (01) ==
LOC: HO.HWSM 13:18
PROVIDERS: PCP Internal Medicine; Visit Provider Advanced Practice Midwife
DX: Z01.419 Encounter for gynecological examination (general) (routine) without abnormal findings (principal); N95.2 Postmenopausal atrophic vaginitis; Z86.711 Personal history of pulmonary embolism
CPT/HCPCS: 99396; 99459

== ENCOUNTER 2024-09-15 13:18 | Outpatient (REF) | payer OTHER, SELFPAY ==
--- OUTSIDE RECORDS SUMMARY | 2024-09-15 15:21 | XMS_ITS | Data Portability ---
Author Organization [facility] Address [address] [place] [phone] Care Team Providers Care Logistics Intern Name Role Phone [facility] OTHER [facility] OTHER Assessment Encounter Date Assessment Date Assessment LastModified by Organization Details LastModified Time 05/05/2023 05/05/2023 I provided real -time medical direction via phone for this encounter, and was available for additional phone based assistance as needed. I have reviewed and agree with the Assessment and Plan as documented by the Programming Director [email or web address] Not available 05/05/2023 17:13:47 08/27/2024 08/27/2024 service [...] 2 Ag, QL IA, respiratory specimen 2023 [facility], [address] [place] [address], [phone], 19:41:18 rapid flu (A+B) 2023 [facility], [address] [place] [address], [phone], 19:41:57 Referral None recorded. Procedures None recorded. Surgeries None recorded. Imaging None recorded. Medication Orders metronidazo le 500 mg tablet 2021 022 [id number], [address] [place] [address], [id number], 2 18:29:57 metronidazo le 500 mg tablet 2021 022 [email or web address] Not available 2 09:06:30 Augmentin 875 mg-125 mg tablet 2022 023 [facility], [address] [place] [address], [address], 3 16:07:33 azithromyci n 250 mg tablet 2022 023 [facility], [address] [place] [address], [address], 3 17:11:16 prednisone 20 mg tablet 2023 024 [facility], [address] [place] [address], [address], 4 16:22:59 prednisone 20 mg tablet 2023 024 [facility], [address] [place] [address], [address], 4 16:24:53 benzonatate 100 mg capsule 2023 024 [facility], [address] [place] [address], [address], 4 16:24:53 Patient TargetsNo targets recorded. Patient InstructionsNo instructions recorded. Reason for Referral None Reported. Results Created Date Observation Date Name Description Value Unit Range Abnormal Flag Note LastModifiedBy Organization Detail LastModifiedTime 08/27/20 24 08/27/2024 rapid flu (A+B) Flu negati ve Not Available Main - [facility] ed [address] [place] [address], [phone], 08/27/2024 19:14:26 08/27/20 24 08/27/2024 rapid SARS CoV 2 Ag, QL IA, respi rator y speci men rapid SARS CoV 2 Ag, QL IA, respiratory specimen negati ve Not Available Main - [facility] ed [address] [place], [address], 08/27/2024 19:14:26 Result Notes None recorded. Medical [...] Not available Not available Not available 05/05/2023 87004 RxNorm Not Available [facility] - production 4 03:47:03 3052 ibuprofen medicatio n hives Not available Not available 05/05/2023 5640 RxNorm SOB Karen Giraldo MD [address] [place] [address],[address], [place], [phone], [facility] 3 17:17:13 3053 Augmentin medicatio n dyspnea Not available Not available 05/05/2023 75356 2 RxNorm Urtic aria Karen Giraldo MD [address] [place] [address],[address], [place], [address], iMER 3 17:18:03 Medications Name Sig Start Date [...] Not Available No t Available [employer] 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[employer] 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 Not Available Not Available No t [...] 3 98 % 98 % 71 /min 47608.8 8 g 97.1 [degF] 16 /min 181 mm[Hg] 79 mm[Hg] Not Available [facility] - production 3 16:05:25 Date Recorded Respiratory rate Body temperature Oxygen saturation Oxygen saturation in Arterial blood by Pulse oximetry Heart rate Systolic blood pressure Diastolic blood pressure Provider Name and Address Organization Details Last Updated DateTime 3 12 /min 98.4 [degF] 98 % 98 % 66 /min 152 mm[Hg] 74 mm[Hg] Not Available [facility] - production 3 17:08:28 Date Recorded Body weight Provider Name an d Address Organization Details Last Updated DateTime 05/05/2023 40314.82 g Lexy Mendoza [address] [place] [address],[address], [place], [address], [place] [employer] 05/05/2023 17:09:15 Date Recorded Oxygen saturation Oxygen saturation in Arterial blood by Pulse oximetry Body weight Respiratory rate Heart rate Body temperature Systolic blood pressure Diastolic blood pressure Provider Name and Address Organization Details Last Updated DateTime 4 99 % 99 % 75121.5 36 g 16 /min 82 /min 98 [degF] 164 mm[Hg] 72 mm[Hg] Not Available [employer] 4 16:20:14 Date Recorded Body temperature Heart rate Respiratory rate Oxygen saturation Oxygen saturation in Arterial blood by Pulse oximetry Systolic blood pressure Diastolic blood pressure Provider Name and Address Organization Details Last Updated DateTime 2 98.6 [degF] 80 /min 16 /min 100 % 100 % 161 mm[Hg] 78 mm[Hg] Orlin Ruiz MD [address] [facility],[address], [place], [address] [place], [place] [employer] 2 18:30:24 Social History None recorded. Functional [...] 1109 Orlin Ruiz MD Main - [facility] [address] [place] [phone] 01/05/2022 18:15:37 06/07/2022 14:14:50 Acute pelvic pain 179744098 R10.2 [id number] Andrea Thorpe MD Main - [facility] [address] [place] [phone] 04/24/2023 16:05:20 04/24/2023 23:29:29 Acute otitis media 0140980 H66.92 [id number] Karen Giraldo MD Main - [facility] [address] [place] [phone] 05/05/2023 17:08:26 05/07/2023 07:15:01 Acute otitis media 4867002 H66.92 [id number] Domi Garland MD Main - [facility] [address] [place] [phone] 08/27/2024 16:20:07 08/28/2024 00:15:45 Acute exacerbation of chronic obstructive pulmonary disease 211422599 J44.1 Health Concerns Section Related Observation LastModified [...] (MEDICARE REPLACEMENT/AD VANTAGE - HMO) Yoselin Rodríguez [id number] Yoselin Rodríguez 04/24/2023 1 [facility] [facility] [facility] - DOS ON OR AFTER 2022 - DUAL ELIGIBLE - [facility] OPTIONS AND ONE CARE (MEDICARE REPLACEMENT/AD VANTAGE - HMO) Yoselin Rodríguez [id number] Yoselin Rodríguez 05/05/2023 1 [facility] [facility] - DOS ON OR AFTER 2022 - DUAL ELIGIBLE - [facility] OPTIONS AND ONE CARE (MEDICARE REPLACEMENT/AD VANTAGE - HMO) Yoselin Rodríguez [id number] Yoselin Rodríguez 08/27/2024 1 [facility] [facility] - DOS ON OR AFTER 2022 - DUAL ELIGIBLE - [facility] OPTIONS AND ONE CARE (MEDICARE REPLACEMENT/AD VANTAGE - HMO) Yoselin Rodríguez [id number] Yoselin Rodríguez Notes Date Note Type Note [...] her previous UTI. Orlin Ruiz MD [address] [facility],[address], [place], [address], [facility] 01/05/2022 18:31:02 04/24/2023 text/html HPI: Severe left ear ache .................... .................... .................... .................... .................... .................... .................... . CRC Nursing Assessment: Comments: [facility] triage nurse calling on behalf of member with request for MIH visit for complaints of outer ear discomfort for 3 days Aware MIH visit does not include inner ear eval. Request instED visit to eval unsure fever/chills Verify member name/- Andrea Thorpe MD [address] [facility],[address], [place], [address], i[facility] 04/24/2023 16:07:52 05/05/2023 text/html HPI: mbr with know ear infection for two weeks/nasal congestion/moderate pain, recent ED visit ordered Fluconazole, mbr looking for oral antibiotics, requesting MIH. Protocol Used: Ear - Discharge Protocol-Based Disposition: Consider [facility], [facility] Clinician, or PCP visit within 24 [...] .................... .................... .................... .................... .................... .................... ........... Programming Director Note From Estrada Jain: Dispatched to the [...] Patient noted to have a steady gait. [facility] contacted to discuss patient presentation, complaints, and clinical findings. [facility] orders Azythromycin 500mg PO be given to [...] . Disposition: Fulfilled Karen Giraldo MD [address] [facility],[address], [place], [address], MIN MARTELL 05/05/2023 22:29:41 08/27/2024 text/html HPI: [...] any additional information to process this visit. Programming Director Organization Information for Shantanu Olson Business Legal Name: [facility] Transportation Address: [address] [place] [address], [place] [address], [place] Hand: Zachary Heredia MD CLIA No.: [id number] Programming Director POC Test Results from [employer] Olson Rapid COVID antigen (16:14:44) COVID: - Attachments uploaded as part of this test result can be found under Documents section. Rapid influenza antigen (16:14:45) Flu: - Attachments uploaded as part of this test result can be found under Documents section. .................... .................... .................... .................... .................... .................... .................... . Programming Director Note From Shantanu Olson: Pt co dry [...] clear bilaterally, Covid and flu swab neg. [facility] Dada contacted and 20mg prednisone given PO, right meds, dose, date and route. RX called in for prednisone and benzonatate and continue with nebulizer treatments.. Pt education on signs indicating the ER. Pt advised to continue with core cutter appt. Pt advised to follow up with PCP. .................... .................... .................... .................... .................... .................... .................... . [facility] Consulted: Domi Garland .................... .................... .................... .................... .................... .................... .................... . Disposition: Fulfilled Domi Garland MD [address] [facility],[address] [facility], [place], [address], [employer] Zeynep YeapooMIN THRASHER 08/27/2024 19:14:58 OBGyn Episode No OBEpisode recorded.
--- OUTSIDE RECORDS SUMMARY | 2024-09-15 15:22 | XMS_ITS | Continuity of Care Document ---
Author Organization [employer] [facility], [place] - Formerly [facility] Address [address] [place] [id number] Care Team Providers Care Oxygen Therapist Name Role Phone [facility] OTHER [phone] [facility] OTHER Assessment Encounter Date Assessment Date Assessment [...] QL IA, respiratory specimen 2023 [facility], [address] [place] [address], [id number], 19:41:18 rapid flu (A+B) 2023 [facility], [address] [place] [address], [id number], 19:41:57 Referral None recorded. Procedures None recorded. Surgeries None recorded. Imaging None recorded. Medication Orders prednisone 20 mg tablet 2023 [id number], [address] [facility], [place], [address], 12/11/202 4 16:22:59 prednisone 20 mg tablet [address] [id number], [address] [place], [address], 4 16:24:53 benzonatate 100 mg capsule [address] [id number], [address] [place], [address], 4 16:24:53 Patient TargetsNo targets recorded. Patient InstructionsNo instructions recorded. Reason for Referral None Reported. Results Created Date Observation Date Name Description Value Unit Range Abnormal Flag Note LastModifiedBy Organization Detail LastModifiedTime 08/27/2008/27/2024 rapid flu (A+B) Flu negati ve Not Available [facility] ed [address] [place] [address], [id number], 08/27/2024 19:14:26 08/27/20 24 08/27/2024 rapid SARS CoV 2 Ag, QL IA, respi rator y speci men rapid SARS CoV 2 Ag, QL IA, respiratory specimen negati ve Not Available [facility] ed [address] [place] [address], [phone], 08/27/2024 19:14:26 Result Notes None recorded. Medical [...] Not available Not available Not available 05/05/2023 10068 RxNorm Not Available [facility] - production 4 03:47:03 3052 ibuprofen medicatio n hives Not available Not available 05/05/2023 5640 RxNorm SOB Karen Giraldo MD [address] [facility],[address], [place], [phone] , [facility] [employer] 3 17:17:13 3053 Augmentin medicatio n dyspnea Not available Not available 05/05/2023 72728 2 RxNorm Urtic hugo Giraldo MD [address] [facility],[address], [place], [phone], [facility] [employer], MIN 3 17:18:03 [...] Not Available No t Available [employer] 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 Not Available Not Available No t [...] Updated DateTime 4 99 % 99 % 96401.5 36 g 16 /min 82 /min 98 [...] Diagnosis/Indication Diagnosis SNOMED-CT Code Diagnosis ICD10 Code 80370 Domi Garland MD Main - [facility] [address] [place] [phone] 08/27/2024 16:20:07 08/28/2024 00:15:45 Acute exacerbation of chronic obstructive pulmonary disease 350297676 J44.1 Health Concerns Section Related Observation LastModified by Organization Detai ls LastModified Time None Recorded Concern Status LastModified by Organization Details LastModified Time None Recorded Payers Encounter Date Sequence Insurance Name Policy Number Policy Barrow Covered Member ID Barrow Member ID Guarantor Name 08/27/2024 1 [facility] - DOS ON OR AFTER 2022 - DUAL ELIGIBLE - CARE HOME OPTIONS AND ONE CARE (MEDICARE REPLACEMENT/AD VANTAGE - HMO) Yoselin Rodríguez [id number] Yoselin Rodríguez Notes Date Note Type Note [...] any additional information to process this visit. [employer] Organization Information for Shantanu Olson [employer] Name: [facility] Address: [address] [place] [address], [employer] Worker: Zachary Heredia MD CLIA No.: [id number] [employer] POC Test Results from Shantanu Olson - ALS Rapid COVID antigen (16:14:44) COVID: - Attachments uploaded as part of this test result can be found under Documents section. Rapid influenza antigen (16:14:45) Flu: - Attachments uploaded as part of this test result can be found under Documents section. .................... .................... .................... .................... .................... .................... .................... . [employer] Note From Shantanu Olson: Pt co dry [...] bilaterally, Covid and flu swab neg. [facility] Dada contacted and 20mg prednisone given PO, right meds, dose, date and route. RX called in for prednisone and benzonatate and continue with nebulizer treatments.. Pt education on signs indicating the ER. Pt advised to continue with medical claims assistant appt. Pt advised to follow up with PCP. .................... .................... .................... .................... .................... .................... .................... . [facility] Consulted: Domi Garland .................... .................... .................... .................... .................... .................... .................... . Disposition: Fulfilled Domi Garland MD [address] [place] [address],[address], [place], [phone], [employer] [facility] 08/27/2024 19:14:58 OBGyn Episode No OBEpisode recorded.
[2024-09-16 05:37] LABS: CT PCR NOT DETECTED (Not Detect.); NG PCR NOT DETECTED (Not Detect.)
[2024-09-16 08:25] LABS: Bacterial Vaginosis PCR NEGATIVE (Negative); Candida Group PCR NOT DETECTED (Not Detect); Candida glab krusei PCR NOT DETECTED (Not Detect); Trichomonas vaginalis PCR NOT DETECTED (Not Detect)
== END 2024-09-15 13:19 | disposition home or self-care (01) ==
LOC: HO.LAB 13:18
PROVIDERS: PCP Internal Medicine; Visit Provider Advanced Practice Midwife
DX: Z01.419 Encounter for gynecological examination (general) (routine) without abnormal findings (principal); N89.8 Other specified noninflammatory disorders of vagina; N95.2 Postmenopausal atrophic vaginitis; Z86.711 Personal history of pulmonary embolism; Z11.3 Encounter for screening for infections with a predominantly sexual mode of transmission
CPT/HCPCS: 0352U; 87491; 87591; 99396; 99459

== ENCOUNTER 2024-09-24 10:45 | Outpatient (AMB) | payer OTHER, SELFPAY ==
--- NOTE | 2024-09-24 10:52 | MHC.OFFVIS ---
Vital Signs 09/24/24 10:59 Height 4 ft 10 in Weight 160 lb 11.472 oz BMI 33.6 BP 132/70 Blood Pressure Location Rt brachial Position Sitting Pulse 82 Pulse Source Pulse Oximeter Pulse Oximetry (%) 97 Oxygen Delivery Method Room Air Intake Visit Reasons: Osteoporosis/lm Intake Note: Patient presents for Osteoporosis. Allergies seafood Allergy (Severe, Verified 09/24/24 10:56) Anaphylaxis vancomycin [VANCOMYCIN] Allergy (Severe, Verified 09/24/24 10:56) ANAPHYLAXIS, hives aspirin [ASPIRIN] Allergy (Intermediate, Verified 09/24/24 10:56) rash, asthma codeine [CODEINE] Allergy (Mild, Verified 09/24/24 10:56) rash egg [EGGS] Allergy (Mild, Verified 09/24/24 10:56) VOMITING peanut [PEANUTS] Allergy (Mild, Verified 09/24/24 10:56) HIVES,DIARRHEA amoxicillin [From Augmentin] Allergy (Verified 09/24/24 10:56) hives, swelling, difficulty breathing clavulanic acid [From Augmentin] Allergy (Verified 09/24/24 10:56) hives, swelling mushroom Allergy (Verified 09/24/24 10:56) Rash lactose Adverse Reaction (Intermediate, Verified 09/24/24 10:56) diarrhea Medication List - Last Reconciled 09/24/24 by Maryann Joseph MD acetaminophen (Tylenol Extra Strength) 500 mg PO Q6H PRN 30 days albuterol sulfate 90 mcg/actuation 90 mcg inhalation DAILY albuterol sulfate 2.5 mg inhalation TID PRN calcium carbonate 600 mg PO BID chlorthalidone 25 mg PO DAILY 90 days dicyclomine 20 mg PO QID 30 days dupilumab (Dupixent) 200 mg (1.14 mL) subcut Q2W ergocalciferol (vitamin D2) 1,250 mcg PO QWEEK estradiol 0.01%(0.1mg/gram) 1 g vaginal DAILY 30 days fluoxetine 20 mg PO DAILY hydroxyzine HCl 10 - 20 mg PO Q6H PRN lisinopril 40 mg PO DAILY 90 days lorazepam 1 mg PO DAILY PRN magnesium hydroxide (Milk of Magnesia) 10 mL PO BEDTIME melatonin 3 mg PO BEDTIME omeprazole 40 mg PO BID ondansetron 4 mg PO Q8H PRN 7 days sumatriptan succinate 50 mg PO DAILY PRN Symbicort 160-4.5 mcg/actuation (budesonide-formoterol) 2 puffs PO BID NS trazodone 100 mg PO DAILY HPI Comments Details: 64-year-old female with osteoporosis returns for follow-up. She received her Reclast infusion 02/2024. She stated that she had some pain in her jaw and her bones for about 2 weeks. Then symptoms improved. She states that been suffering from an asthma attack over the last few weeks. She states that she continues to have diffuse pain all over Initial history: This is a 63-year-old female who is referred by her PCP for evaluation of osteoporosis. Patient states that since traveled she would need repeated courses of prednisone to control her asthma. Until recently she was started on Dupixent with reduction in dependence on steroids. She was started on alendronate by her PCP about a month ago. He states that it causes dizziness. She thought that it is taken once a month. She states that in her 30s, she was having back pain and was evaluated by analytical lab analyst and was told that she has lupus she was told that the treatments would consist of prednisone. Patient declined. She does not recall any formal assessment by a analytical lab analyst since then. She states that she can see intermittent joint pains. Intermittently she would have pain in her ribs on the right and posteriorly. Associated with swelling. In 2018 she had unprovoked PE and was found to have positive lupus anticoagulant. She was on rivaroxaban for some time. She is no longer on rivaroxaban. She is unaware of any family history of an autoimmune rheumatic disease [facility] Medical History Abdominal bloating Acute diarrhea Physical exam COVID-19 Pulmonary embolism Pulmonary embolism Vaginal itching Hx of human papillomavirus infection Candidiasis of mouth and esophagus Abdominal cramping Pneumonia Bile salt-induced diarrhea History of pilonidal cyst Gastritis IBS (irritable bowel syndrome) Hypertension Pre-eclampsia Irritable bowel syndrome with both constipation and diarrhea Gallstones Surgical History H/O cervical polypectomy Hx of esophagogastroduodenoscopy H/O colonoscopy History of surgical removal of pilonidal cyst S/P tonsillectomy History of section History of cholecystectomy Family History Father Heart attack GERD (gastroesophageal reflux disease) Peptic ulcer disease Mother CHF (congestive heart failure) Afib Diverticulitis History of bowel resection Hypothyroid COVID-19 Maternal Aunt Diabetes Maternal Uncle Cancer Maternal Grandmother Cancer Brother Mental health disorder Social History Household Members: Spouse Housing: Apartment Are you a primary skin care instructor to a significant other at home: No Do you presently have visiting nurse or other home services: Yes (phone visits) Alcohol intake: former Patient Tobacco Use Status: Never used Tobacco e-Cigarette/Vaping Use: Never Used Second Hand Smoke Exposure: No service: No Current occupational status: retired Cognitive needs: No Hearing needs: No Vision needs: No Female Reproductive History Menstrual Age of Menarche: 10 control method: none Total pregnancies: 1 Full term: 1 Review of Systems ENT Reports neck pain Musc Reports myalgias, Reports arthralgias, Denies muscle weakness and Reports neck pain Psych Reports abnormal sleep pattern and Reports anxiety Physical Exam Vital Signs: Last Vital Signs Pulse 82 09/24/24 10:59 BP 132/70 09/24/24 10:59 Pulse Ox 97 09/24/24 10:59 Oxygen Delivery Method Room Air 09/24/24 10:59 BMI result Body Mass Index 33.6 Const General: cooperative, healthy appearing and comfortable Nutritional Appearance: obese and overweight Orientation/consciousness: patient oriented x3 Limitations: no limitations HEENT Head: Yes normocephalic and Yes atraumatic Mouth: moist mucous membranes Resp Effort & Inspection: normal respiratory effort and able to speak in complete sentences Cardio Rate: regular rate Rhythm: regular rhythm Skin General skin exam: no rashes or lesions noted Neuro General: patient oriented x3 Extrem Other: No active synovitis Multiple fibromyalgia tender points Nailfold capillaroscopy shows few parallel hemorrhages right 3rd finger Assessment & Plan Assessment & Plan (1) Osteoporosis: Code(s): M81.0 - Age-related osteoporosis without current pathological fracture Category: Medical Qualifiers: Osteoporosis type: unspecified Presence of current pathological fracture: without current pathological fracture Qualified Code(s): M81.0 - Age-related osteoporosis without current pathological fracture Plan: This is a 64-year-old female with osteoporosis who presents for follow-up. Per patient she used to get repeated courses of steroids since her childhood to treat her asthma. Her asthma has been doing better for about a year since she started Dupixent. Patient is unaware of any history of fractures. DEXA in 2022 showed osteoporosis. Labs for secondary causes of osteoporosis were negative. Patient was started on alendronate by her PCP 4 weeks ago but could not tolerate it due to significant GI upset, fatigue, worsening GERD. She received 1 dose of Reclast infusion 02/2024. Per patient it caused significant jaw and generalized bone pain for about 2 weeks. Repeat DEXA scan 11/2024, check labs before next visit and can decide on treatment of osteoporosis next visit Continue with vitamin-D supplementation Discussed weight-bearing exercise Labs before next visit in 3 months (2) NEHA positive: Code(s): R76.8 - Other specified abnormal immunological findings in serum Category: Medical Plan: Comprehensive sub serologies were negative. At this time I do not see any evidence of an autoimmune rheumatic disease (3) Fibromyalgia, primary: Code(s): M79.7 - Fibromyalgia Category: Medical Plan: Discussed management of fibromyalgia with patient. Is a noninflammatory, non-autoimmune central afferent processing disorder leading to a diffuse pain syndrome. Patient follows up regularly with psychiatrist and psychotherapist for anxiety and PTSD. Patient has a sleep study scheduled this month. Patient walks regularly and sometimes climbs the stairs. Advised patient that she may benefit from additional exercises such as aquatherapy, swimming, light weights Plan I spent 27 minutes reviewing patient's chart, evaluating patient, ordering diagnostic workup, counseling patient and documenting in the chart Orders: Orders XR DEXA axial skeleton 11/17/24 M81.0 - Age-related osteoporosis without current pathological fracture Vitamin D 25-OH Total 3 Months E55.9 - Vitamin D deficiency, unspecified Collagen Type I C-Telopeptide 3 Months M81.0 - Age-related osteoporosis without current pathological fracture Coding Level of Care Code Est Pt Level 4 (08240) Diagnoses Osteoporosis without current pathological fracture, unspecified osteoporosis type M81.0 Osteoporosis type: unspecified Presence of current pathological fracture: without current pathological fracture NEHA positive R76.8 Fibromyalgia, primary M79.7
[2024-09-24 10:59] VITALS: BP 132/70; PULSE 82; O2SAT 97; BMI 33.6
--- OUTSIDE RECORDS SUMMARY | 2024-09-24 11:08 | XMS_ITS | Data Portability ---
Author Organization [facility] [place] [facility] Address [address] [place] [phone] Care Team Providers Care Motor Vehicle Examiner Name Role Phone [facility] OTHER [phone] [facility] OTHER Assessment Encounter Date Assessment Date Assessment LastModified by Organization Details LastModified Time 05/05/2023 05/05/2023 I provided real -time medical direction via phone for this encounter, and was available for additional phone based assistance as needed. I have reviewed and agree with the Assessment and Plan as documented by the City Wellness Coordinator [email or web address] Not available 05/05/2023 17:13:47 08/27/2024 08/27/2024 service [...] 2 Ag, QL IA, respiratory specimen 2023 [facility], [address] [place] [address], [phone], 19:41:18 rapid flu (A+B) 2023 [facility], [address] [place] [address], [phone], 19:41:57 Referral None recorded. Procedures None recorded. Surgeries None recorded. Imaging None recorded. Medication Orders metronidazo le 500 mg tablet 2021 022 [id number] [address] [place] [address], [address], 2 18:29:57 metronidazo le 500 mg tablet 2021 022 [email or web address] Not available 2 09:06:30 Augmentin 875 mg-125 mg tablet 2022 023 [id number], [address] [place] [address], [address], 3 16:07:33 azithromyci n 250 mg tablet 2022 023 [facility], [address] [place] [address], [address], 3 17:11:16 prednisone 20 mg tablet 2023 [facility] [address] [place] [address], [address], 4 16:22:59 prednisone 20 mg tablet 2023 024 [facility] [address] [place] [address], [address], 4 16:24:53 benzonatate 100 mg capsule 2023 024 [facility] [address] [place] [address], [address], 4 16:24:53 Patient TargetsNo targets recorded. Patient InstructionsNo instructions recorded. Reason for Referral None Reported. Results Created Date Observation Date Name Description Value Unit Range Abnormal Flag Note LastModifiedBy Organization Detail LastModifiedTime 08/27/20 24 08/27/2024 rapid flu (A+B) Flu negati ve Not Available Main - [facility] ed [address] [place] [address], [phone], 08/27/2024 19:14:26 08/27/20 24 08/27/2024 rapid SARS CoV 2 Ag, QL IA, respi rator y speci men rapid SARS CoV 2 Ag, QL IA, respiratory specimen negati ve Not Available Main - [facility] ed [address] [place], [address], 08/27/2024 19:14:26 Result Notes None recorded. Medical [...] Not available Not available Not available 05/05/2023 65521 RxNorm Not Available [facility] - production 4 03:47:03 3052 ibuprofen medicatio n hives Not available Not available 05/05/2023 5640 RxNorm SOB Karen Giraldo MD [address] [place] [address],[address], [place], [address], [employer] 3 17:17:13 3053 Augmentin medicatio n dyspnea Not available Not available 05/05/2023 52691 2 RxNorm Urtic aria Karen Giraldo MD [address] [place] [address],[address], [place], [address], [employer] 3 17:18:03 Medications Name Sig Start Date [...] Not Available No t Available [facility] Scrub Nurse active Not Available Not Available No t [...] 3 98 % 98 % 71 /min 57875.8 8 g 97.1 [degF] 16 /min 181 mm[Hg] 79 mm[Hg] Not Available [employer] - production 3 16:05:25 Date Recorded Respiratory rate Body temperature Oxygen saturation Oxygen saturation in Arterial blood by Pulse oximetry Heart rate Systolic blood pressure Diastolic blood pressure Provider Name and Address Organization Details Last Updated DateTime 3 12 /min 98.4 [degF] 98 % 98 % 66 /min 152 mm[Hg] 74 mm[Hg] Not Available [employer] - production 3 17:08:28 Date Recorded Body weight Provider Name an d Address Organization Details Last Updated DateTime 05/05/2023 63301.82 g Lexy Mendoza [address] [place] [address],[address], [place], [address], [place] [employer] 05/05/2023 17:09:15 Date Recorded Oxygen saturation Oxygen saturation in Arterial blood by Pulse oximetry Body weight Respiratory rate Heart rate Body temperature Systolic blood pressure Diastolic blood pressure Provider Name and Address Organization Details Last Updated DateTime 4 99 % 99 % 76164.5 36 g 16 /min 82 /min 98 [degF] 164 mm[Hg] 72 mm[Hg] Not Available [employer] 4 16:20:14 Date Recorded Body temperature Heart rate Respiratory rate Oxygen saturation Oxygen saturation in Arterial blood by Pulse oximetry Systolic blood pressure Diastolic blood pressure Provider Name and Address Organization Details Last Updated DateTime 2 98.6 [degF] 80 /min 16 /min 100 % 100 % 161 mm[Hg] 78 mm[Hg] Orlin Ruiz MD [address] [facility],[address], [place], [address] [place], [place] [employer] 2 18:30:24 Social History None recorded. Functional Status None recorded. Mental Status None recorded. Family History Nothing Reported. Medical History No medical history recorded. Gynecological HistoryNo gynecological history recorded. Obstetrics History GPAL:G 0 P 0 0 0 0 Past Encounters Encounter ID Performer Location Encounter Start Date Encounter Closed Date Diagnosis/Indication Diagnosis SNOMED-CT Code Diagnosis ICD10 Code Diagnosis Note [id number] Orlin Ruiz MD Main - [facility] [address] [place] [phone] 01/05/2022 18:15:37 06/07/2022 14:14:50 Acute pelvic pain 422749536 R10.2 Reports history of cramping after cervical polyp removal. Reports spotting, on re-assessm ent with mechanical technical service specialist, passing fishy-sme lling white discharge. No abdominal tenderness on mechanical technical service specialist examinatio n to suggest referred intra-abdo mary process. Reports symptoms are not consistent with UTI, so LE on UA likely represents inflammati on versus contaminat ion. Unable to perform pelvic examinatio n with mechanical technical service specialist so difficult to assess for other pelvic pathology. Would benefit from close follow-up by physician who performed the procedure (Dr. Goldsmith?? ) Will treat empiricall y with Flagyl for BV in the interim. [id number] Andrea [place] MD Main - [facility] [address] [place] [phone] 04/24/2023 16:05:20 04/24/2023 23:29:29 Acute otitis media 3506775 H66.92 Patient with history of adult ear infection presents with typical symptoms of ear pain. City Wellness Coordinator examinatio n consistent with ear infection. Will treat with augmentin. They can pick it up tonight, so did not give anything via mechanical technical service specialist. [id number] Karen Giraldo MD Main - [facility] [address] [place] [phone] 05/05/2023 17:08:26 05/07/2023 07:15:01 Acute otitis media 2981078 H66.92 Patient reports she has had azithromyc in without problem in the past medic will give first dose now with dinner-adv ised need to follow-up with PCP again beginning of this week as we cannot look in her ear; it is beyond the scope of the medic. Due to severe reaction to ibuprofen and aspirin ketorolac is contraindi cated, the only other thing we carry we informed the patient is Tylenol and she is already exceeded maximum dose.Advis ed given her stated weight 2500 to 2800 mg of Tylenol per 24-hour. Is the maximum dose. I suggested warm compresses to her left face and ear to help any accumulate d fluid drain for 15 to 20 minutes every 4 hours when awakeI encouraged her to continue using the fluticason e to help any sinus or middle ear/ inner ear fluid drain [id number] Domi Garland MD Main - [address] [phone] 08/27/2024 16:20:07 08/28/2024 00:15:45 Acute exacerbation of chronic obstructive pulmonary disease [id number] J44.1 Health Concerns Section Related Observation LastModified by Organization Detai ls LastModified Time None Recorded Concern Status LastModified by Organization Details LastModified Time None Recorded Advance Directives Directive None Recorded Payers Encounter Date Sequence Insurance Name Policy Number Policy Barrow Covered Member ID Barrow Member ID Guarantor Name 01/05/2022 1 [employer] - DOS PRIOR TO 2022 - DUAL ELIGIBLE (MEDICARE REPLACEMENT/AD VANTAGE - HMO) Yoselin Rodríguez [id number] Yoselin Rodríguez 04/24/2023 1 [employer] - DOS ON OR AFTER 2022 - DUAL ELIGIBLE - ASSISTED OPTIONS AND ONE CARE (MEDICARE REPLACEMENT/AD VANTAGE - HMO) Yoselin Rodríguez [id number] Yoselin Rodríguez 05/05/2023 1 [employer] - DOS ON OR AFTER 2022 - DUAL ELIGIBLE - ASSISTED OPTIONS AND ONE CARE (MEDICARE REPLACEMENT/AD VANTAGE - HMO) Yoselin Rodríguez [id number] Yoselin Rodríguez 08/27/2024 1 [employer] [facility] [employer] - DOS ON OR AFTER 2022 - DUAL ELIGIBLE - ASSISTED OPTIONS AND ONE CARE (MEDICARE REPLACEMENT/AD VANTAGE - HMO) Yoselin Rodríguez [id number] Yoselin Rodríguez Notes Date Note Type Note [...] with her previous UTI. Orlin Ruiz MD [address] [place] [address],[address], [place], [address], [employer] 01/05/2022 18:31:02 04/24/2023 text/html HPI: Severe left ear ache .................... .................... .................... .................... .................... .................... .................... . [facility] Nursing Assessment: Comments: [facility] triage nurse calling on behalf of member with request for MIH visit for complaints of outer ear discomfort for 3 days Aware MIH visit does not include inner ear eval. [facility] unsure fever/chills Verify member name/- Andrea [place] MD [address] [facility],[address], [place], [address], [employer] 04/24/2023 16:07:52 05/05/2023 text/html HPI: mbr with know ear infection for two weeks/nasal congestion/moderate pain, recent ED visit ordered Fluconazole, mbr looking for oral antibiotics, requesting MIH. Protocol Used: Ear - Discharge Protocol-Based Disposition: Consider [facility], [facility] Community Clinician, or PCP visit within [...] .................... .................... .................... .................... .................... .................... ........... City Wellness Coordinator Note From Estrada Jain: Dispatched to the [...] Patient noted to have a steady gait. [facility] contacted to discuss patient presentation, complaints, and clinical findings. [facility] orders Azythromycin 500mg PO be given to [...] .................... . Disposition: Fulfilled Karen Giraldo MD [address] [place] [address],[address], [place], [address], [employer] 05/05/2023 22:29:41 08/27/2024 text/html HPI: Member calling [...] any additional information to process this visit. City Wellness Coordinator Organization Information for Shantanu Olson [employer] Legal Name: [facility] Address: [address] [place] [address], Goldbeater: Zachary Heredia MD CLIA No.: [id number] City Wellness Coordinator POC Test Results from Shantanu Olson Rapid COVID antigen (16:14:44) COVID: - Attachments uploaded as part of this test result can be found under Documents section. Rapid influenza antigen (16:14:45) Flu: - Attachments uploaded as part of this test result can be found under Documents section. .................... .................... .................... .................... .................... .................... .................... . City Wellness Coordinator Note From Shantanu Olson: Pt co dry cough. Pt sts had some mucus production just in the morning when she woke up.Pt sts has NC, sneezing and runny nose a couple days ago however symptoms have subsided. Pt using her nebulizer with some relief. Pt sts has appt with pulmonary however the nurse on the phone told her she needed a negative covid swab prior. Pt denies fever, headache, dizziness, NVD. Baseline vitals assessed, WNL, Afebrile, lungs clear bilaterally, Covid and flu swab neg. [facility] Dada contacted and 20mg prednisone given PO, right meds, dose, date and route. RX called in for prednisone and benzonatate and continue with nebulizer treatments.. Pt education on signs indicating the ER. Pt advised to continue with anchorer appt. Pt advised to follow up with PCP. .................... .................... .................... .................... .................... .................... .................... . [facility] Consulted: Domi Garland .................... .................... .................... .................... .................... .................... .................... . Disposition: Fulfilled Domi Garland MD [address] [facility],[address] [facility], [place], [address], [employer] 08/27/2024 19:14:58 OBGyn Episode No OBEpisode recorded.
--- OUTSIDE RECORDS SUMMARY | 2024-09-24 11:08 | XMS_ITS | Continuity of Care Document ---
Author Organization [employer] [facility], [place] - Critical access hospital Address [address] [place] [phone] Care Team Providers Care Fishing Tool Technician Oil Well Name Role Phone [facility] OTHER [facility] OTHER Assessment Encounter Date Assessment [...] 2 Ag, QL IA, respiratory specimen 2023 [facility], [address] [place] [address], [phone], 19:41:18 rapid flu (A+B) 2023 [facility], [address] [place] [address], [phone], 19:41:57 Referral None recorded. Procedures None recorded. Surgeries None recorded. Imaging None recorded. Medication Orders prednisone 20 mg tablet 2023 [id number], [address] [facility], [place], [address], 12/11/202 4 16:22:59 prednisone 20 mg tablet 2023 024 [facility], [address] [place], [address], 4 16:24:53 benzonatate 100 mg capsule 2023 024 [facility], [address] [place], [address], 4 16:24:53 Patient TargetsNo targets recorded. Patient InstructionsNo instructions recorded. Reason for Referral None Reported. Results Created Date Observation Date Name Description Value Unit Range Abnormal Flag Note LastModifiedBy Organization Detail LastModifiedTime 08/27/2008/27/2024 rapid flu (A+B) Flu negati ve Not Available [facility] ed [address] [place] [address], [phone], 08/27/2024 19:14:26 08/27/20 24 08/27/2024 rapid SARS CoV 2 Ag, QL IA, respi rator y speci men rapid SARS CoV 2 Ag, QL IA, respiratory specimen negati ve Not Available [facility] ed [address] [place] [address], [address], 08/27/2024 19:14:26 Result Notes None recorded. Medical [...] Not available Not available Not available 05/05/2023 18944 RxNorm Not Available [facility] - production 4 03:47:03 3052 ibuprofen medicatio n hives Not available Not available 05/05/2023 5640 RxNorm SOB Karen Giraldo MD [address] [facility],[address], [place], [address] , [facility] [employer] 3 17:17:13 3053 Augmentin medicatio n dyspnea Not available Not available 05/05/2023 94348 2 RxNorm Urtic hugo Giraldo MD [address] [facility],[address], [place], [phone], [employer], MIN 3 17:18:03 [...] Not Available No t Available [employer] active Not Available Not Available No t [...] Updated DateTime 4 99 % 99 % 14227.5 36 g 16 /min 82 /min 98 [...] SNOMED-CT Code Diagnosis ICD10 Code Diagnosis Note [id number] Domi Garland MD Main - [facility] [address] [place] [phone] 08/27/2024 16:20:07 08/28/2024 00:15:45 Acute exacerbation of chronic obstructive pulmonary disease [id number] J44.1 Health Concerns Section Related Observation LastModified by Organization Detai ls LastModified Time None Recorded Concern Status LastModified by Organization Details LastModified Time None Recorded Payers Encounter Date Sequence Insurance Name Policy Number Policy Barrow Covered Member ID Barrow Member ID Guarantor Name 08/27/2024 1 [facility] - DOS ON OR AFTER 2022 - DUAL ELIGIBLE - ALF OPTIONS AND ONE CARE (MEDICARE REPLACEMENT/AD VANTAGE - HMO) Yoselin Rodríguez [id number] Yoselin Brody Marcos Notes Date Note Type Note Provider Name [...] any additional information to process this visit. Golf Tournament Consultant Organization Information for Shantanu Olson [employer] Legal Name: [facility] Address: [address] [place] [address], [place] [address], Tube Operator: Zachary Heredia MD CLIA No.: [id number] Golf Tournament Consultant POC Test Results from Shantanu Olson - ALS Rapid COVID antigen (16:14:44) COVID: - Attachments uploaded as part of this test result can be found under Documents section. Rapid influenza antigen (16:14:45) Flu: - Attachments uploaded as part of this test result can be found under Documents section. .................... .................... .................... .................... .................... .................... .................... . Golf Tournament Consultant Note From Shantanu Olson: Pt co dry [...] clear bilaterally, Covid and flu swab neg. [facility] Dada contacted and 20mg prednisone given PO, right meds, dose, date and route. RX called in for prednisone and benzonatate and continue with nebulizer treatments.. Pt education on signs indicating the ER. Pt advised to continue with furniture reproducer appt. Pt advised to follow up with PCP. .................... .................... .................... .................... .................... .................... .................... . [facility] Consulted: Domi Garland .................... .................... .................... .................... .................... .................... .................... . Disposition: Fulfilled Domi Garland MD [address] [facility],[address], [place], [address], [employer] 08/27/2024 19:14:58 OBGyn Episode No OBEpisode recorded.
== END 2024-09-24 11:52 | disposition home or self-care (01) ==
PROVIDERS: PCP Internal Medicine; Visit Provider Student in an Organized Health Care Education/Training Program
DX: M81.0 Age-related osteoporosis without current pathological fracture (principal); R76.8 Other specified abnormal immunological findings in serum; M79.7 Fibromyalgia
CPT/HCPCS: 99214

== ENCOUNTER → 2024-09-24 10:45 | Outpatient (BNVA) | payer OTHER, SELFPAY | PROVIDERS: PCP Internal Medicine; Visit Provider Student in an Organized Health Care Education/Training Program | DX: M81.0 Age-related osteoporosis without current pathological fracture (principal); M79.7 Fibromyalgia; R76.8 Other specified abnormal immunological findings in serum | CPT/HCPCS: 99212 ==

== ENCOUNTER → 2024-10-02 13:14 | Outpatient (REF) | payer OTHER, SELFPAY | LOC: HO.SL 13:14 | PROVIDERS: PCP Internal Medicine; Visit Provider Internal Medicine Pulmonary Disease | DX: G47.33 Obstructive sleep apnea (adult) (pediatric) (principal); J41.1 Mucopurulent chronic bronchitis; G47.10 Hypersomnia, unspecified; J45.40 Moderate persistent asthma, uncomplicated; Z91.09 Other allergy status, other than to drugs and biological substances | CPT/HCPCS: 87070; 87077; 87185; 87205; 95806; 99212 ==

== ENCOUNTER → 2024-10-02 13:31 | Outpatient (BNV) | payer OTHER, SELFPAY | PROVIDERS: PCP Internal Medicine; Visit Provider Psychiatry & Neurology Neurology | DX: G47.10 Hypersomnia, unspecified (principal) | CPT/HCPCS: 95806 ==

== ENCOUNTER 2024-10-02 15:19 | Outpatient (AMB) | payer OTHER, SELFPAY ==
[2024-10-02 15:21] VITALS: BP 142/64; PULSE 76; O2SAT 100; BMI 33.9
--- NOTE | 2024-10-02 15:21 | MHC.OFFVIS ---
Vital Signs 10/02/24 15:21 Height 4 ft 10 in Weight 162 lb 0.636 oz BMI 33.9 BP 142/64 H Blood Pressure Location Rt brachial Position Sitting Pulse 76 Pulse Source Doppler Pulse Oximetry (%) 100 Oxygen Delivery Method Room Air Intake Visit Reasons: asthma exacerbation/ persistent cough Allergies seafood Allergy (Severe, Verified 09/24/24 10:56) Anaphylaxis vancomycin [VANCOMYCIN] Allergy (Severe, Verified 09/24/24 10:56) ANAPHYLAXIS, hives aspirin [ASPIRIN] Allergy (Intermediate, Verified 09/24/24 10:56) rash, asthma codeine [CODEINE] Allergy (Mild, Verified 09/24/24 10:56) rash egg [EGGS] Allergy (Mild, Verified 09/24/24 10:56) VOMITING peanut [PEANUTS] Allergy (Mild, Verified 09/24/24 10:56) HIVES,DIARRHEA amoxicillin [From Augmentin] Allergy (Verified 09/24/24 10:56) hives, swelling, difficulty breathing clavulanic acid [From Augmentin] Allergy (Verified 09/24/24 10:56) hives, swelling mushroom Allergy (Verified 09/24/24 10:56) Rash lactose Adverse Reaction (Intermediate, Verified 09/24/24 10:56) diarrhea HPI HPI asthma exacerbation/ persistent cough : Details: 64-year-old lady, lifetime nonsmoker, followed for severe persistent asthma, environmental allergies, and post COVID-19 syndrome.? Patient was not able to tolerate immunologic therapy for her asthma including Fasenra and Xolair, but had good response with Dupixent. She also has had significant side effects after COVID vaccines.? She continues on Dupixent, Symbicort, and albuterol MDI with good control of her symptoms. After the last office visit she was treated with Levaquin with improvement, but not complete resolution of her bronchitic exacerbation. [facility] Medical History Abdominal bloating Acute diarrhea Physical exam COVID-19 Pulmonary embolism Pulmonary embolism Vaginal itching Hx of human papillomavirus infection Candidiasis of mouth and esophagus Abdominal cramping Pneumonia Bile salt-induced diarrhea History of pilonidal cyst Gastritis IBS (irritable bowel syndrome) Hypertension Pre-eclampsia Irritable bowel syndrome with both constipation and diarrhea Gallstones Surgical History H/O cervical polypectomy Hx of esophagogastroduodenoscopy H/O colonoscopy History of surgical removal of pilonidal cyst S/P tonsillectomy History of section History of cholecystectomy Family History Father Heart attack GERD (gastroesophageal reflux disease) Peptic ulcer disease Mother CHF (congestive heart failure) Afib Diverticulitis History of bowel resection Hypothyroid COVID-19 Maternal Aunt Diabetes Maternal Uncle Cancer Maternal Grandmother Cancer Brother Mental health disorder Social History Household Members: Spouse Housing: Apartment Are you a primary resident care technician to a significant other at home: No Do you presently have visiting nurse or other home services: Yes (phone visits) Alcohol intake: former Patient Tobacco Use Status: Never used Tobacco e-Cigarette/Vaping Use: Never Used Second Hand Smoke Exposure: No service: No Current occupational status: retired Cognitive needs: No Hearing needs: No Vision needs: No Female Reproductive History Menstrual Age of Menarche: 10 Review of Systems Const Denies daytime sleepiness, Denies excessive sweating, Denies fatigue, Denies fever(s), Denies lethargy, Denies malaise, Denies night sweats, Denies snoring and Denies weight loss Eyes Denies blurry vision and Denies itchy eyes ENT Denies nasal congestion, Denies post nasal drip, Denies sinus pain, Denies sinus pressure and Denies other ( Thrush) Card Denies chest pain, Denies pedal edema, Denies dyspnea, Denies orthopnea and Denies paroxysmal nocturnal dyspnea Resp Reports cough, Denies hemoptysis, Reports excessive phlegm production, Denies dyspnea, Denies snoring and Denies wheezing GI Denies abdominal pain and Denies heartburn Musc Denies myalgias, Denies arthralgias and Denies joint swelling Skin/Breast Denies rash Neuro Denies memory loss and Denies seizure-like activity Psych Denies abnormal sleep pattern, Denies anxiety and Denies memory loss Endo Denies excessive sweating, Denies fatigue and Denies heat intolerance Migue/Lymph Denies easy bruising Aller/Immun Denies itchy eyes, Denies seasonal rhinorrhea and Denies wheezing Physical Exam Vital Signs: Last Vital Signs Pulse 76 10/02/24 15:21 BP 142/64 H 10/02/24 15:21 Pulse Ox 100 10/02/24 15:21 Oxygen Delivery Method Room Air 10/02/24 15:21 BMI result Body Mass Index 33.9 Const General: no acute distress and alert Nutritional Appearance: not obese Orientation/consciousness: Other orientation findings ( oriented) HEENT Head: Yes atraumatic Eyes General: appearance normal, both eyes and all related structures Sclerae: sclerae normal EOM: EOMs intact bilaterally Neck Neck: Yes supple Lymphatic: no lymphadenopathy noted Resp Effort & Inspection: normal respiratory effort and no use of accessory muscles Auscultation: clear to auscultation bilaterally Cardio Rate: regular rate Rhythm: regular rhythm Heart sounds: no gallops, no murmurs and no rubs Skin General skin exam: other ( warm) Extrem General: No clubbing, No cyanosis and No edema Assessment & Plan Assessment & Plan (1) Asthma: Code(s): J45.909 - Unspecified asthma, uncomplicated Category: Medical Qualifiers: Asthma severity: moderate Asthma persistence: persistent Asthma complication type: uncomplicated Qualified Code(s): J45.40 - Moderate persistent asthma, uncomplicated Plan: Baseline control on Dupixent, Symbicort, albuterol MDI/nebs. Continue current regimen. (2) YESSICA (obstructive sleep apnea): Code(s): G47.33 - Obstructive sleep apnea (adult) (pediatric) Category: Medical Plan: Sleep study is pending. (3) Environmental allergies: Code(s): Z91.09 - Other allergy status, other than to drugs and biological substances Category: Medical Plan: Baseline controlled on Dupixent. Continue current regimen. (4) Mucopurulent chronic bronchitis: Code(s): J41.1 - Mucopurulent chronic bronchitis Category: Medical Plan: Improved, but not completely resolved after a course of Levaquin, will obtain sputum culture. Orders: Orders Sputum Cult + Gram stain Today J41.1 - Mucopurulent chronic bronchitis Coding Level of Care Code Est Pt Level 4 (96054) Complex EM visit Add On G2211 Diagnoses Moderate persistent asthma without complication J45.40 Asthma severity: moderate Asthma persistence: persistent Asthma complication type: uncomplicated YESSICA (obstructive sleep apnea) G47.33 Environmental allergies Z91.09 Mucopurulent chronic bronchitis J41.1
--- OUTSIDE RECORDS SUMMARY | 2024-10-02 20:17 | XMS_ITS | Continuity of Care Document ---
Author Organization [facility], Ar in - [facility] Address [address] [place] [address] Care Team Providers Care Tavern Operator Name Role Phone [facility] OTHER [phone] [facility] OTHER Assessment Encounter Date Assessment Date [...] 2 Ag, QL IA, respiratory specimen 2023 [facility], [address] [place] [address], [id number], 19:41:18 rapid flu (A+B) 2023 [facility], [address] [place] [address], [phone], 19:41:57 Referral None recorded. Procedures None recorded. Surgeries None recorded. Imaging None recorded. Medication Orders prednisone 20 mg tablet 2023 [id number], [address] [facility], [place], [address], 12/11/202 4 16:22:59 prednisone 20 mg tablet [address] [id number], [address] [place], [address], 4 16:24:53 benzonatate 100 mg capsule [address] [id number], [address] [place], [address], 4 16:24:53 Patient TargetsNo targets recorded. Patient InstructionsNo instructions recorded. Reason for Referral None Reported. Results Created Date Observation Date Name Description Value Unit Range Abnormal Flag Note LastModifiedBy Organization Detail LastModifiedTime 08/27/2008/27/2024 rapid flu (A+B) Flu negati ve Not Available [facility] ed [address] [place] [address], [phone], 08/27/2024 19:14:26 08/27/20 24 08/27/2024 rapid SARS CoV 2 Ag, QL IA, respi rator y speci men rapid SARS CoV 2 Ag, QL IA, respiratory specimen negati ve Not Available [facility] ed [address] [place] [address], [phone], 08/27/2024 19:14:26 Result Notes None recorded. Medical [...] Not available Not available Not available 05/05/2023 09460 RxNorm Not Available [facility] - production 4 03:47:03 3052 ibuprofen medicatio n hives Not available Not available 05/05/2023 5640 RxNorm SOB Karen Giraldo MD [address] [facility],[address], [place], [address] , [facility] [employer] 3 17:17:13 3053 Augmentin medicatio n dyspnea Not available Not available 05/05/2023 55903 2 RxNorm Urtic hugo Giraldo MD [address] [facility],[address], [place], [address], FRANDY - JUST[employer]RICE, MIN 3 17:18:03 [...] Not Available No t Available BD Sharps Bilingual Recruiter active Not Available Not Available No t [...] Updated DateTime 4 99 % 99 % 77113.5 36 g 16 /min 82 /min 98 [...] SNOMED-CT Code Diagnosis ICD10 Code Diagnosis Note [id number] Domi Garland MD Main - [facility] [address] [place] [phone] 08/27/2024 16:20:07 08/28/2024 00:15:45 Acute exacerbation of chronic obstructive pulmonary disease [id number] J44.1 Health Concerns Section Related Observation LastModified by Organization Detai ls LastModified Time None Recorded Concern Status LastModified by Organization Details LastModified Time None Recorded Payers Encounter Date Sequence Insurance Name Policy Number Policy Barrow Covered Member ID Barrow Member ID Guarantor Name 08/27/2024 1 [facility] - DOS ON OR AFTER 2022 - DUAL ELIGIBLE - FCI OPTIONS AND ONE CARE (MEDICARE REPLACEMENT/AD VANTAGE - HMO) Yoselin Rodríguez [id number] Yoselin Brody Marcos Notes Date Note Type [...] any additional information to process this visit. Doll Wigs Hackler Organization Information for Shantanu Olson [employer] Legal Name: [facility] Address: [address] [place] [address], [place] [address], State Auditor: Zachary Heredia MD CLIA No.: [id number] Doll Wigs Hackler POC Test Results from Shantanu Olson - ALS Rapid COVID antigen (16:14:44) COVID: - Attachments uploaded as part of this test result can be found under Documents section. Rapid influenza antigen (16:14:45) Flu: - Attachments uploaded as part of this test result can be found under Documents section. .................... .................... .................... .................... .................... .................... .................... . Doll Wigs Hackler Note From Shantanu Olson: Pt co dry [...] the ER. Pt advised to continue with pre sales technical engineer appt. Pt advised to follow up with PCP. .................... .................... .................... .................... .................... .................... .................... . [facility] Consulted: Domi Garland .................... .................... .................... .................... .................... .................... .................... . Disposition: Fulfilled Domi Garland MD [address] [facility],[address], [place], [address], [facility] [email or web address] 08/27/2024 19:14:58 OBGyn Episode No OBEpisode recorded.
--- OUTSIDE RECORDS SUMMARY | 2024-10-02 20:17 | XMS_ITS | Data Portability ---
Author Organization [facility], [facility] Address [address] [place] [phone] Care Team Providers Care Grain Unloader Name Role Phone [facility] OTHER [phone] [facility] OTHER Assessment Encounter Date Assessment Date Assessment LastModified by Organization Details LastModified Time 05/05/2023 05/05/2023 I provided real -time medical direction via phone for this encounter, and was available for additional phone based assistance as needed. I have reviewed and agree with the Assessment and Plan as documented by the Sr. Merchandise Planner [email or web address] Not available 05/05/2023 17:13:47 08/27/2024 08/27/2024 service [...] QL IA, respiratory specimen 2023 [facility], [address] [place] [address], [address], 19:41:18 rapid flu (A+B) 2023 [facility], [address] [place] [address], [address], 19:41:57 Referral None recorded. Procedures None recorded. Surgeries None recorded. Imaging None recorded. Medication Orders metronidazo le 500 mg tablet 2021 022 [id number], [address] [place] [address], [address], 2 18:29:57 metronidazo le 500 mg tablet 2021 022 [email or web address] Not available 2 09:06:30 Augmentin 875 mg-125 mg tablet 2022 023 [facility], [address] [place] [address], [address], 3 16:07:33 azithromyci n 250 mg tablet 2022 023 [facility], [address] [place] [address], [address], 3 17:11:16 prednisone 20 mg tablet 2023 [facility] [address] [place] [address], [address], 4 16:22:59 prednisone 20 mg tablet 2023 024 [facility] [address] [place] [address], [address], 4 16:24:53 benzonatate 100 mg capsule 2023 024 [facility], [address] [place] [address], [address], 4 16:24:53 Patient TargetsNo targets recorded. Patient InstructionsNo instructions recorded. Reason for Referral None Reported. Results Created Date Observation Date Name Description Value Unit Range Abnormal Flag Note LastModifiedBy Organization Detail LastModifiedTime 08/27/20 24 08/27/2024 rapid flu (A+B) Flu negati ve Not Available Main - [facility] ed [address] [place] [address], [address], 08/27/2024 19:14:26 08/27/20 24 08/27/2024 rapid SARS CoV 2 Ag, QL IA, respi rator y speci men rapid SARS CoV 2 Ag, QL IA, respiratory specimen negati ve Not Available Main - [facility] ed [address] [place], [address], 08/27/2024 19:14:26 Result Notes None recorded. Medical [...] Not available Not available Not available 05/05/2023 28969 RxNorm Not Available [facility] - production 4 03:47:03 3052 ibuprofen medicatio n hives Not available Not available 05/05/2023 5640 RxNorm SOB Karen Giraldo MD [address] [place] [address],[address], [place], [address], [employer] 3 17:17:13 3053 Augmentin medicatio n dyspnea Not available Not available 05/05/2023 95475 2 RxNorm Urtic aria Karen Giraldo MD [address] [place] [address],[address], [place], [address], [employer] 3 17:18:03 Medications Name Sig Start Date [...] Not Available No t Available BD Sharps Implementation Specialist Payroll active Not Available Not Available No t [...] 3 98 % 98 % 71 /min 80843.8 8 g 97.1 [degF] 16 /min 181 mm[Hg] 79 mm[Hg] Not Available User [facility] - production 3 16:05:25 Date Recorded Respiratory rate Body temperature Oxygen saturation Oxygen saturation in Arterial blood by Pulse oximetry Heart rate Systolic blood pressure Diastolic blood pressure Provider Name and Address Organization Details Last Updated DateTime 3 12 /min 98.4 [degF] 98 % 98 % 66 /min 152 mm[Hg] 74 mm[Hg] Not Available [facility] - production 3 17:08:28 Date Recorded Body weight Provider Name an d Address Organization Details Last Updated DateTime 05/05/2023 36942.82 g Lexy Mendoza [address] [place] [address],[address], [place], [address], [place] [employer] 05/05/2023 17:09:15 Date Recorded Oxygen saturation Oxygen saturation in Arterial blood by Pulse oximetry Body weight Respiratory rate Heart rate Body temperature Systolic blood pressure Diastolic blood pressure Provider Name and Address Organization Details Last Updated DateTime 4 99 % 99 % 24644.5 36 g 16 /min 82 /min 98 [degF] 164 mm[Hg] 72 mm[Hg] Not Available [employer] 4 16:20:14 Date Recorded Body temperature Heart rate Respiratory rate Oxygen saturation Oxygen saturation in Arterial blood by Pulse oximetry Systolic blood pressure Diastolic blood pressure Provider Name and Address Organization Details Last Updated DateTime 2 98.6 [degF] 80 /min 16 /min 100 % 100 % 161 mm[Hg] 78 mm[Hg] Orlin Ruiz MD [address] [facility],[address], [place], [address] [place], [place] [employer] 2 18:30:24 Social History None recorded. Functional [...] Orlin Ruiz MD Main - [facility] [address] [place] [phone] 01/05/2022 18:15:37 06/07/2022 14:14:50 Acute pelvic pain [id number] R10.2 Reports history of cramping after cervical polyp removal. Reports spotting, on re-assessm ent with oil spreader operator, passing fishy-sme lling white discharge. No abdominal tenderness on oil spreader operator examinatio n to suggest referred intra-abdo mary process. Reports symptoms are not consistent with UTI, so LE on UA likely represents inflammati on versus contaminat ion. Unable to perform pelvic examinatio n with oil spreader operator so difficult to assess for other pelvic pathology. Would benefit from close follow-up by physician who performed the procedure (Dr. Goldsmith?? ) Will treat empiricall y with Flagyl for BV in the interim. [id number] Andrea Thorpe MD Main - [facility] [address] [place] [phone] 04/24/2023 16:05:20 04/24/2023 23:29:29 Acute otitis media 4610034 H66.92 Patient with history of adult ear infection presents with typical symptoms of ear pain. Sr. Merchandise Planner examinatio n consistent with ear infection. Will treat with augmentin. They can pick it up tonight, so did not give anything via oil spreader operator. [id number] Karen Giraldo MD Main - [facility] [address] [place] [phone] 05/05/2023 17:08:26 05/07/2023 07:15:01 Acute otitis media 1622479 H66.92 Patient reports she has had azithromyc [...] or middle ear/ inner ear fluid drain [id number] Domi Garland MD Main - [address] [address] 08/27/2024 16:20:07 08/28/2024 00:15:45 Acute exacerbation of chronic obstructive pulmonary disease [id number] J44.1 Health Concerns Section Related Observation LastModified by Organization Detai ls LastModified Time None Recorded Concern Status LastModified by Organization Details LastModified Time None Recorded Advance Directives Directive None Recorded Payers Encounter Date Sequence Insurance Name Policy Number Policy Barrow Covered Member ID Barrow Member ID Guarantor Name 01/05/2022 1 [employer] - DOS PRIOR TO 2022 - DUAL ELIGIBLE (MEDICARE REPLACEMENT/AD VANTAGE - HMO) Yoselin Rodríguez [id number] Yoselin Rodríguez 04/24/2023 1 [employer] - DOS ON OR AFTER 2022 - DUAL ELIGIBLE - RESIDENTIAL OPTIONS AND ONE CARE (MEDICARE REPLACEMENT/AD VANTAGE - HMO) Yoselin Rodríguez [id number] Yoselin Rodríguez 05/05/2023 1 [employer] - DOS ON OR AFTER 2022 - DUAL ELIGIBLE - RESIDENTIAL OPTIONS AND ONE CARE (MEDICARE REPLACEMENT/AD VANTAGE - HMO) Yoselin Rodríguez [id number] Yoselin Rodríguez 08/27/2024 1 [employer] [facility] [employer] - DOS ON OR AFTER 2022 - DUAL ELIGIBLE - RESIDENTIAL OPTIONS AND ONE CARE (MEDICARE REPLACEMENT/AD VANTAGE - HMO) Yoselin Rodríguez [id number] Yoselin Rodríguez Notes Date Note Type Note [...] with her previous UTI. Orlin Ruiz MD [address] [place] [address],[address], [place], [address], [employer] 01/05/2022 18:31:02 04/24/2023 text/html HPI: Severe left ear ache .................... .................... .................... .................... .................... .................... .................... . [facility] Nursing Assessment: Comments: [facility] triage nurse calling on behalf of member with request for MIH visit for complaints of outer ear discomfort for 3 days Aware MIH visit does not include inner ear eval. [facility] unsure fever/chills Verify member name/- Andrea Thorpe MD [address] [facility],[address], [place], [phone], [employer] 04/24/2023 16:07:52 05/05/2023 text/html HPI: mbr with know ear infection for two weeks/nasal congestion/moderate pain, recent ED visit ordered Fluconazole, mbr looking for oral antibiotics, requesting MIH. Protocol Used: Ear - Discharge Protocol-Based Disposition: Consider instED, [facility] Community Clinician, or PCP visit [...] .................... .................... .................... .................... .................... .................... ........... Sr. Merchandise Planner Note From Estrada Jain: Dispatched to the [...] noted to have a steady gait. [facility] contacted to discuss patient presentation, complaints, and clinical findings. [facility] orders Azythromycin 500mg PO be given to [...] .................... . Disposition: Fulfilled Karen Giraldo MD [address] [place] [address],[address], [place], [address], [employer] 05/05/2023 22:29:41 08/27/2024 text/html HPI: Member calling [...] any additional information to process this visit. Sr. Merchandise Planner Organization Information for Shantanu Olson [employer] Legal Name: [facility] Address: [address] [place] [address], Process Checker: Zachary Heredia MD CLIA No.: [id number] Sr. Merchandise Planner POC Test Results from Shantanu Olson Rapid COVID antigen (16:14:44) COVID: - Attachments uploaded as part of this test result can be found under Documents section. Rapid influenza antigen (16:14:45) Flu: - Attachments uploaded as part of this test result can be found under Documents section. .................... .................... .................... .................... .................... .................... .................... . Sr. Merchandise Planner Note From Shantanu Olson: Pt co dry [...] bilaterally, Covid and flu swab neg. [facility] Dada contacted and 20mg prednisone given PO, right meds, dose, date and route. RX called in for prednisone and benzonatate and continue with nebulizer treatments.. Pt education on signs indicating the ER. Pt advised to continue with mortgage loan underwriter appt. Pt advised to follow up with PCP. .................... .................... .................... .................... .................... .................... .................... . [facility] Consulted: Domi Garland .................... .................... .................... .................... .................... .................... .................... . Disposition: Fulfilled Domi Garland MD [address] [facility],[address] [facility], [place], [address], [employer] 08/27/2024 19:14:58 OBGyn Episode No OBEpisode recorded.
--- OUTSIDE RECORDS SUMMARY | 2024-10-02 20:17 | XMS_ITS | Data Portability ---
Author Organization [place] [facility], Allergy Address [address] [place] [phone] Assessment Encounter Date Assessment Date Assessment LastModified by Organization Details LastModified Time 04/21/2024 04/21/2024 63-year-old female with a history of allergic rhinitis presents today for evaluation of her ears, with recurrent infections, tinnitus, and decreased hearing. There is no evidence of infection today. We reviewed aural hygiene. I recommended trying DermOtic oil as needed for the pruritus. I did staff counselor her that a nasal steroid such [...] nasal spray,viet pension 2023 024 [id number], [address] [place], [address], 15:52:39 DermOtic Oil 0.01 % ear drops 2023 024 [id number], [address] [place], [address], 12:15:29 Patient TargetsNo targets recorded. Patient InstructionsNo [...] Time Sensorineural hearing loss of bilateral ears [id number] Active 2023 GREER [place] [address] [place] [address], [place], [phone], [place] - [facility] [place] 13:52:52 Allergic rhinitis 29578050 Active 2023 ESTELA MONROE MD [address] [place] [address], [phone], [place] - [facility] [place] 15:50:03 Pruritic disorder 689543220 Active 2023 ESTELA MONROE MD [address] [place] [address], [phone], [facility] - [facility] [place] 15:50:09 Pruritic disorder of skin Active 2023 ESTELA MONROE MD [address] [place] [address], [place], [phone], [facility] - [facility] [place] 15:52:00 Problem Notes None recorded. Procedures Surgical History Date Name Laterality Status Provider Name and Address Organization Details Recorded Time 04/21/20 24 Comp Audio with Tymps (85634 & 20740) completed GREER [place]AS [address] [facility],[address], [phone], [facility] - [facility] [place] 04/21/2024 13:52:45 tonsillectomy completed ESTELA MONROE MD [address] [place] [address],[address], [phone], [place] - [facility] 04/28/2024 07:58:20 section completed ESTELA MONROE MD [address] [place] [address], [place], [phone], [place] [facility] 04/28/2024 07:58:28 Imaging Results Imaging Date [...] Name and Address Organization Details Recorded Time 779679 aspirin medicatio n Not available Not available Not available 04/21/2024 1191 RxNorm Sabi paige [facility] 13:44:51 [id number] amoxicill in medicatio n Not available Not available Not available 04/21/2024 723 RxNorm Sabi Rudi paige [facility] 4 13:45:02 147986 cultivate d mushroom extract food Not available Not available Not available 04/21/2024 23661 17 RxNorm Sabi Rudi paige [facility] 4 13:45:09 Medications Name Sig Start [...] Updated DateTime 04/21/2024 149.86 cm 32.1 kg/m2 18551.19 g Sabi Grijalva [place] - [facility] 04/21/2024 15:22:56 Social History None recorded. [...] SNOMED-CT Code Diagnosis ICD10 Code Diagnosis Note [id number] ESTELA MONROE MD [facility] [address] [place] [address] 04/21/2024 13:35:47 04/21/2024 15:54:22 Sensorineural hearing loss of bilateral ears [id number] H90.3 Audiologic al evaluation results: Right ear: {{Normal sloping* M ild Modera te Moderat neli-severe Severe Pr ofound Nor mal auditory thresholds }} to {{mild mod erate* mod erately-se samira sever e profound with}} {{sensorin eural hearing loss with* cond uctive hearing loss with mixed hearing loss with}} {{excellen t* good fa ir poor no t measurable }} word recognitio n. Left ear: {{Normal sloping* M ild Modera te Moderat neli-severe Severe Pr ofound Nor mal auditory thresholds }} to {{mild mod erate* mod erately-se samira sever e profound with}} {{sensorin eural hearing loss with* cond uctive hearing loss with mixed hearing loss with}} {{excellen t* good fa ir poor no t measurable }} word recognitio n. Tympanomet ry: Right Ear:{{Type A* Type As Type Ad Type C Type C, shallow & rounded Ty pe B Type B with large volume Cou ld not maintain a hermetic seal}} Left Ear:{{Type A* Type As Type Ad Type C Type C, shallow & rounded Ty pe B Type B with large volume Cou ld not maintain a hermetic seal}} Allergic rhinitis 521959 04 J30.9 Pruritic disorder 572381 002 L29.9 Health Concerns Section Related Observation LastModified by Organization Detai ls LastModified Time None Recorded Concern Status LastModified by Organization Details LastModified Time None Recorded Advance Directives Directive None Recorded Payers Encounter Date Sequence Insurance Name Policy Number Policy Barrow Covered Member ID Barrow Member ID Guarantor Name 04/21/2024 1 [facility] - DOS ON OR AFTER 2022 - JAIL OPTIONS AND ONE CARE (MEDICARE REPLACEMENT/AD VANTAGE - PPO) Yoselin Rodríguez [id number] Yoselin Rodríguez Notes Date Note Type Note Provider Name and Address Organization Details Recorded Time 04/21/2024 text/html 63-year-old marky hay with a history of allergies on dupixent, no recommendation for allergy shots, no nasal sprays, presents with recurrent ear infections. She was treated last year 3 times. She has had more trouble hearing on the left side and has had pruritus as well. Most recent infection was several months ago. ESTELA MONROE MD [address] [place] [address], [phone], [place] - [facility] 04/28/2024 08:02:56 OBGyn Episode No OBEpisode recorded.
== END 2024-10-02 15:41 | disposition home or self-care (01) ==
PROVIDERS: PCP Internal Medicine; Visit Provider Internal Medicine Pulmonary Disease
DX: J45.40 Moderate persistent asthma, uncomplicated (principal); G47.33 Obstructive sleep apnea (adult) (pediatric); Z91.09 Other allergy status, other than to drugs and biological substances; J41.1 Mucopurulent chronic bronchitis
CPT/HCPCS: 99214; G2211

== ENCOUNTER 2024-10-13 | Outpatient (REF) | payer OTHER, SELFPAY ==
--- OUTSIDE RECORDS SUMMARY | 2024-10-14 13:26 | XMS_ITS | Encounter Summary ---
Author Organization [employer] Address [address] [facility] 7t [place] [address] Care Team Providers Care Retail Wireless Sales Representative Name Role Phone Iqra Nelson MD Primary Care Provider + Johnny Casanova PharmD Unavailable [phone] Toñito Caraballo VENTILATOR SPECIALIST Unavailable Unavailable Encounter Details Date Type Department Care Team ([facility] st Contact Info) Description 02/12/2024 Orders Only [facility] MEDICINE [address] [place] [address] Provider, MD Antoine Social History Tobacco Use [...] documented as of this encounter Care Teams Retail Wireless Sales Representative Relationship Specialty Start Date End Date Iqra Nelson MD [address] [place] [address] PCP - General Family Medicine 12/05/16 04/08/24 Johnny Casanova PharmD [address] [place] [address] Pharmacist Internal Medicine 09/26/22 Toñito Caraballo FNP [address] [place] [address] Nurse Practitioner Family Medicine 08/08/23 documented as of this encounter
--- OUTSIDE RECORDS SUMMARY | 2024-10-14 13:26 | XMS_ITS | Encounter Summary ---
Author Organization [employer] [facility] Address [address] [facility] 7t [place] [address] Care Team Providers Care Parts Advisor Name Role Phone Iqra Nelson MD Primary Care Provider + Johnny Casanova PharmD Unavailable [phone] Toñito Caraballo Unavailable Unavailable Reason for Visit * Reason Comments Med Refill Encounter Details Date Type Department Care Team (Late st Contact Info) Description 04/22/2023 Refill [facility] MEDICINE [address] [place] [address] Toñito Caraballo FNP Social History Tobacco Use [...] documented as of this encounter Care Teams Parts Advisor Relationship Specialty Start Date End Date Iqra Nelson MD [address] [place] [address] PCP - General Family Medicine 12/05/16 04/08/24 Johnny Casanova PharmD [address] [place] [address] Pharmacist Internal Medicine 09/26/22 Toñito Caraballo FNP [address] [place] [address] Nurse Practitioner Family Medicine 08/08/23 documented as of this encounter
--- OUTSIDE RECORDS SUMMARY | 2024-10-14 13:26 | XMS_ITS | Encounter Summary ---
Author Organization [employer] Address [address] [facility] 7t [place] [address] Care Team Providers Care Dye Lab Technician Name Role Phone Iqra Nelson MD Primary Care Provider + Johnny Casanova PharmD Unavailable [phone] Toñito Caraballo Unavailable Unavailable Reason for Visit * Reason Comments Med Refill Encounter Details Date Type Department Care Team (Late st Contact Info) Description 07/20/2023 Refill [facility] MEDICINE [address] [place] [address] Toñito Caraballo FNP Social History Tobacco Use [...] documented as of this encounter Care Teams Dye Lab Technician Relationship Specialty Start Date End Date Iqra Nelson MD [address] [place] [address] PCP - General Family Medicine 12/05/16 04/08/24 Johnny Casanova PharmD [address] [place] [address] Pharmacist Internal Medicine 09/26/22 Toñito Caraballo FNP [address] [place] [address] Nurse Practitioner Family Medicine 08/08/23 documented as of this encounter
--- OUTSIDE RECORDS SUMMARY | 2024-10-14 13:26 | XMS_ITS | Encounter Summary ---
Author Organization [employer] [facility] Address [address] [facility] 7t [place] [address] Care Team Providers Care Senior Ios Developer Name Role Phone Iqra eNlson MD Primary Care Provider + Johnny Casanova PharmD Unavailable [phone] Toñito Caraballo ADMIN PROG COORD Unavailable Unavailable Encounter Details Date Type Department Care Team ([facility] st Contact Info) Description 03/08/2023 Abstract [facility] MEDICINE [address] [place] [address] Irqa Nelson MD [address] [place] [address] Social History Tobacco Use Types Packs/Day Years [...] documented as of this encounter Care Teams Senior Ios Developer Relationship Specialty Start Date End Date Iqra Nelson MD [address] [place] [address] PCP - General Family Medicine 12/05/16 04/08/24 Johnny Casanova, RachelD [address] [place] [address] Pharmacist Internal Medicine 09/26/22 Toñito Caraballo FNP [address] [place] [address] Nurse Practitioner Family Medicine 08/08/23 documented as of this encounter
--- OUTSIDE RECORDS SUMMARY | 2024-10-14 13:26 | XMS_ITS | Encounter Summary ---
Author Organization [employer] Address [address] [facility] 7t [place] [address] Care Team Providers Care Welfare Manager Name Role Phone Iqra Nelson MD Primary Care Provider + Johnny Casanova PharmD Unavailable [phone] Toñito Caraballo Unavailable Unavailable Reason for Visit * Reason Comments Med Refill Encounter Details Date Type Department Care Team (Late st Contact Info) Description 02/26/2023 Refill [facility] MEDICINE [address] [place] [address] Toñito Caraballo FNP Major depressive disorder, recurrent, [...] Diagnoses Diagnosis Major depressive disorder, recurrent, moderate ([facility]) Major depressive disorder, recurrent episode, moderate documented in this encounter Additional Health Concerns Assessment Noted Time PHQ-9 Depression Total Score: 10 023 3:45 PM EDT documented as of this encounter Care Teams Welfare Manager Relationship Specialty Start Date End Date Iqra Nelson MD [address] [place] [address] PCP - General Family Medicine 12/05/16 04/08/24 Johnny Casanova, RachelD [address] [place] [address] Pharmacist Internal Medicine 09/26/22 Toñito Caraballo FNP [address] [place] [address] Nurse Practitioner Family Medicine 08/08/23 documented as of this encounter
--- OUTSIDE RECORDS SUMMARY | 2024-10-14 13:26 | XMS_ITS | Encounter Summary ---
Author Organization [employer] Address [address] [facility] 7t [place] [address] Care Team Providers Care Steel Estimator Name Role Phone Iqra Nelson MD Primary Care Provider + Johnny Casanova PharmD Unavailable [phone] Toñito Caraballo Unavailable Unavailable Reason for Visit * Reason Onset Date Comments Med Refill Appointment 10/11/2023 LVM-Re: her apt for today as [id number] @2pm Encounter Details Date Type Department Care Team (Late st Contact Info) Description 10/11/2023 Refill [facility] MEDICINE [address] [place] [address] Toñito Caraballo FNP Social History Tobacco Use [...] documented as of this encounter Care Teams Steel Estimator Relationship Specialty Start Date End Date Iqra Nelson MD [address] [place] [address] PCP - General Family Medicine 12/05/16 04/08/24 Johnny Casanova PharmD [address] [place] [address] Pharmacist Internal Medicine 09/26/22 Toñito Caraballo FNP [address] [place] [address] Nurse Practitioner Family Medicine 08/08/23 documented as of this encounter
--- OUTSIDE RECORDS SUMMARY | 2024-10-14 13:26 | XMS_ITS | Encounter Summary ---
Author Organization [employer] Address [address] [facility] 7t [place] [address] Care Team Providers Care Tie Sawyer Name Role Phone Johnny Casanova PharmD Unavailable [phone] Toñito Caraballo CLIENT SOLUTIONS SPECIALIST Unavailable Unavailable Encounter Details Date Type Department Care Team ([facility] Contact Info) Description 10/03/2024 Orders Only GENERIC [...] 12:00 AM EST) 10/03/2024 10/03/2024 Comment:Sputum Narrative [facility] - 10/06/2024 9:08 AM EST Gram stain results: 4+ polys 2+ epithelial cells 3+ Gram-positive cocci 3+ Gram-positive rods 2+ Gram-negative rods Sputum Culture BAP Sputum Culture 4+ mixed upper-resp lara Haemophilus parainfluenzae B-Lac Susc (reported) Beta-lactamase not produced; suggests PEN/AMP susceptibility Quant Org ID 3+ Specimen Source: Sputum us Generic External Data Provider LAB MICROBIOLOGY - GENERAL ORDERABLES Final Result [facility] [address] [place] [phone] [phone] documented in this encounter Visit Diagnoses Not on filedocumented in this encounter Additional Health Concerns Assessment Noted Time PHQ-9 Depression Total Score: 9 03/24/20 24 9:50 AM EDT documented as of this encounter Care Teams Tie Sawyer Relationship Specialty Start Date End Date Johnny Casanova PharmD [address] [place] [phone] Pharmacist Internal Medicine 09/26/22 Toñito Caraballo FNP [address] [place] [address] Nurse Practitioner Family Medicine 08/08/23 documented as of this encounter
--- OUTSIDE RECORDS SUMMARY | 2024-10-14 13:26 | XMS_ITS | Encounter Summary ---
Author Organization [employer] [facility] Address [address] [facility] 7t [place] [address] Care Team Providers Care Biomass Power Plant Manager Name Role Phone Iqra Nelson MD Primary Care Provider + Johnny Casanova PharmD Unavailable [phone] Toñito Caraballo REAL ESTATE CLERK Unavailable Unavailable Encounter Details Date Type Department Care Team ([facility] st Contact Info) Description 09/26/2022 Orders Only [facility] MEDICINE [address] [place] [address] Johnny Casanova, PharmD [address] [place] [address] Social History Tobacco Use Types Packs/Day Years [...] documented as of this encounter Care Teams Biomass Power Plant Manager Relationship Specialty Start Date End Date Iqra Nelson MD [address] [place] [address] PCP - General Family Medicine 12/05/16 04/08/24 Johnny Casanova, PharmD [address] [place] [address] Pharmacist Internal Medicine 09/26/22 Toñito Caraballo FNP [address] [place] [address] Nurse Practitioner Family Medicine 08/08/23 documented as of this encounter
--- OUTSIDE RECORDS SUMMARY | 2024-10-14 13:26 | XMS_ITS | Encounter Summary ---
Author Organization [employer] [facility] Address [address] [facility] 7t [place] [address] Care Team Providers Care Chemic Mangler Name Role Phone Iqra Nelson MD Primary Care Provider + Johnny Casanova PharmD Unavailable [phone] Toñito Caraballo Unavailable Unavailable Reason for Visit * Reason Comments Med Refill Encounter Details Date Type Department Care Team (Late st Contact Info) Description 02/21/2023 Refill [facility] MEDICINE [address] [place] [address] Toñito Caraballo FNP Social History Tobacco Use [...] documented as of this encounter Care Teams Chemic Mangler Relationship Specialty Start Date End Date Iqra Nelson MD [address] [place] [address] PCP - General Family Medicine 12/05/16 04/08/24 Johnny Casanova PharmD [address] [place] [address] Pharmacist Internal Medicine 09/26/22 Toñito Caraballo FNP [address] [place] [address] Nurse Practitioner Family Medicine 08/08/23 documented as of this encounter
--- OUTSIDE RECORDS SUMMARY | 2024-10-14 13:26 | XMS_ITS | Encounter Summary ---
Author Organization [employer] Address [address] [facility] 7t [place] [address] Care Team Providers Care Cooling Room Attendant Name Role Phone Iqra Nelson MD Primary Care Provider + Johnny Casanova PharmD Unavailable [phone] Toñito Caraballo Unavailable Unavailable Reason for Visit * Reason Comments Med Refill Encounter Details Date Type Department Care Team (Late st Contact Info) Description 12/28/2022 Refill [facility] MEDICINE [address] [place] [address] Toñito Caraballo FNP Major depressive disorder, recurrent, [...] Diagnoses Diagnosis Major depressive disorder, recurrent, moderate ([facility]) Major depressive disorder, recurrent episode, moderate documented in this encounter Additional Health Concerns Assessment Noted Time PHQ-9 Depression Total Score: 16 023 1:04 PM EDT documented as of this encounter Care Teams Cooling Room Attendant Relationship Specialty Start Date End Date Iqra Nelson MD [address] [place] [address] PCP - General Family Medicine 12/05/16 04/08/24 Johnny Casanova, Ti [address] [place] [address] Pharmacist Internal Medicine 09/26/22 Toñito Caraballo FNP [address] [place] [address] Nurse Practitioner Family Medicine 08/08/23 documented as of this encounter
--- OUTSIDE RECORDS SUMMARY | 2024-10-14 13:26 | XMS_ITS | Clinical Summary ---
Author Organization [employer] Address [address] [facility] 7t [place] [address] Care Team Providers Care Sheet Metal Installer Name Role Phone Johnny Casanova PharmD Unavailable [phone] Toñito Caraballo ELECTRONIC PUBLISHER Unavailable Unavailable Allergies Active Allergy Reactions Criticality [...] diets. She wants a referral to the behavioral specialist. Discussed re weight reduction options including exercise, life style modifications, diet, referral to crm marketing specialist. Discussed re lower calorie intake, increase [...] retiring, so any issues or concerns, contact [facility]. All her questions were answered and [...] EST): Continue estrace cream and fu with SPORTS ADMINISTRATOR. Refill sent to pharmacy. Assessment & Plan (10/09/2022 2:44 PM EST): Most likely secondary to atrophic vaginitis. -use estrogen cream daily x2 weeks and then 3 times per week. Pneumonia due to COVID-19 virus 08/24/2022 Polyp of cervix 08/24/2022 Assessment & Plan (03/26/2023 2:56 PM EDT): s/p resection by SPORTS ADMINISTRATOR, more than a year ago, last PAP was normal refer to SPORTS ADMINISTRATOR second opinion due to persistent dyspareunia Postcoital bleeding 08/24/2022 Assessment & Plan (03/26/2023 3:04 PM EDT): See previous issue and refer to SPORTS ADMINISTRATOR Pruritus 08/24/2022 Right upper quadrant pain 08/24/2022 [...] q2wk + albuterol PRN and FU w/ dye house wheel operator Decline flue and Covid IZ today, [...] is your housing situation today? I have nkiky tidwell 06/25/[address] you [...] 12:00 AM EST) 10/03/2024 10/03/2024 Comment:Sputum Narrative [facility] - 10/06/2024 9:08 AM EST Gram stain results: 4+ polys 2+ epithelial cells 3+ Gram-positive cocci 3+ Gram-positive rods 2+ Gram-negative rods Sputum Culture BAP Sputum Culture 4+ mixed upper-resp lara Haemophilus parainfluenzae B-Lac Susc (reported) Beta-lactamase not produced; suggests PEN/AMP susceptibility Quant Org ID 3+ Specimen Source: Sputum us Generic External Data Provider LAB MICROBIOLOGY - GENERAL ORDERABLES Final Result [facility] [address] [place] [phone] * Lipid Panel with Reflex to Direct LDL (11/08/2023 12:00 AM EST) Triglycerides 128 <150 mg/dL [facility] Comment:Desirable Triglyceri de: less than 150 mg/dLBorderline High Triglyceride 150-199 mg/dLHigh Triglyceride: 200-499 mg/dLVery High Triglyceride: greater than or equal to 5OO mg/dL Cholesterol 169 <200 mg/dL [facility] Comment:Desirable Cholestero l: less than 200 mg/dLBorderline High Cholesterol: 200-239 mg/dLHigh Cholesterol: greater than 239 mg/dL LDL Cholesterol Calculated 82 <100 mg/dL [facility] Comment:Desirable LDL: less than 100 mg/dLNear Optimal/Above Optimal LDL: 110- 129 mg/dLBorderline High LDL: 130-159 mg/dLHigh LDL: 160-189 mg/dLVery High LDL: greater than or equal to 190 mg/dL HDL Cholesterol 62 >40 mg/dL [facility] Comment:Desirable HDL: great er than 40 mg/dL Note: This HDL assay may give artificially low results in patients with liver disease. Blood 11/08/2023 11/08/2023 Iqra Nelson MD LAB BLOOD ORDERABLES Fin al Result [facility] [address] [place] [address] [phone] * HPV mRNA E6/E7 w/Reflex to HPV Genotypes 16, 18/45 (05/31/2023 1:12 PM EDT) HPV nRNA E6/E7 Not Detected Not Detected [facility] Comment:Methodology: Transcr iption-Mediated AmplificationThis assay detects E6/E7 viral messenger RNA (mRNA) from 14high-risk HPV types (16,18,31,33,35,39,45,51,52,56,58,59,66,68).Cervical sources are required for HPV testing.If a vaginal source from a patient who has had atotal hysterectomy with removal of cervix wassubmitted, please contact the testing laboratoryfor alternative testing options.For additional information, please refer tohttp://education.Queryly/faq/IJG052k8(This link if provided for information/educational purposes only.)THIS TEST WAS PERFORMED AT:[employer] [place] [phone] HARRISON MD HPV mRNA E6/E7 TNP [facility] HPV 16 RNA [facility] HPV 18/45 RNA [facility] 05/31/2023 1:12 PM EDT 06/01/2023 9:00 AM EDT [facility] External Provider LAB CYT OLOGY ORDERABLES Final Result [facility] [address] [place] [address] [phone] * Pap Smear (05/31/2023 1:12 PM EDT) 05/31/2023 1:12 PM EDT 06/01/2023 9:00 AM EDT [facility] - 06/12/2023 1:57 PM EDT ----- ------- Name: Yoselin Rodríguez ?Age/Sex: 62/F ? : 1960 Unit#: [id number] ?? Attend Dr: Ale Francisco CNM ?Re05/31/23 ?Status: DEP REF ? Location: HO.LNP ?Disch: ? ----- ------- SPEC : [id number] ?RECD: 06/01/23-899 ? STATUS: ??SOUT ? REQ NUM: [id number] ? AGATHA: 05/31/23-1311 ? SUBM DR: Ale [...] 66, 68) ? HPV testing performed by [facility] [employer], [place], [place]. ??See reference laboratory ?? portion of the EMR for entire report. ?Clinical Information LMP: No menses Previous PAP test: 07/19/21, abnormal Other history: +HPV, personal history of other infectious and parasitic diseases ? Material Received ?? ThinPrep-Cervical Copies To: ?? Iqra Nelson MD ?? [address] [facility] ?? [place] [id number] ? Ale Francisco CNM ?? [address] [facility] [address] ?? [place] [address] ?? [phone] ----- ------- Signed (signature on file) Yajaira Dash 06/12/23 1357 ? ----- ------- ? END OF REPORT ? [facility] External Provider LAB [facility] ORDERABLES Final Result Performing Organization Address City/State/[facility] Co de Phone Number [facility] [address] [place] [phone] * Mammography Report 1 (04/21/2021 1:15 [...] Most Recently Relevant to Health Maintenance Insurance [facility] C[facility] Care Teams Sheet Metal Installer Relationship Specialty Start Date End Date Johnny Casanova, RachelD [address] [place] [address] Pharmacist Internal Medicine 09/26/22 Toñito Caraballo FNP [address] [place] [address] Nurse Practitioner Family Medicine 08/08/23
--- OUTSIDE RECORDS SUMMARY | 2024-10-14 13:26 | XMS_ITS | Encounter Summary ---
Author Organization [facility] Address [address] [facility] 7t [place] [address] Care Team Providers Care Chemical Pathologist Name Role Phone Iqra Nelson MD Primary Care Provider + Johnny Casanova PharmD Unavailable [phone] Toñito Caraballo CAN FILLING ROOM SWEEPER Unavailable Unavailable Encounter Details Date Type Department Care Team ([facility] st Contact Info) Description 10/10/2022 Orders Only [facility] MEDICINE [address] [place], [place] [phone] Iqra Nelson MD [address] [place], [place] [phone] Vitamin D deficiency (Primary Dx); Senile osteoporosis [...] documented as of this encounter Care Teams Chemical Pathologist Relationship Specialty Start Date End Date Iqra Nelson MD [address] [place] [address] PCP - General Family Medicine 12/05/16 04/08/24 Johnny Casanova, Ti [address] [place] [address] Pharmacist Internal Medicine 09/26/22 Toñito Caraballo FNP [address] [place] [address] Nurse Practitioner Family Medicine 08/08/23 documented as of this encounter
[2024-10-14 14:26] LABS: Adenovirus F 40/41 Not Detected (Not Detect.); Astrovirus Not Detected (Not Detect.); Campylobacter Not Detected (Not Detect.); Cryptosporidium Not Detected (Not Detect.); Cyclospora cayetanensis Not Detected (Not Detect.); E. coli EAEC Not Detected (Not Detect.); E. coli EPEC Not Detected (Not Detect.); E. coli ETEC Not Detected (Not Detect.); E. coli STEC Not Detected (Not Detect.); Entamoeba histolytica Not Detected (Not Detect.); Giardia lamblia Not Detected (Not Detect.); Norovirus GI/GII Not Detected (Not Detect.); Plesiomonas shigelloides Not Detected (Not Detect.); Rotavirus A Not Detected (Not Detect.); Salmonella Not Detected (Not Detect.); Sapovirus Not Detected (Not Detect.); Shigella sp./EIEC Not Detected (Not Detect.); Vibrio Not Detected (Not Detect.); Vibrio Cholerae Not Detected (Not Detect.); Yersinia enterocolitica Not Detected (Not Detect.)
[2024-10-14 14:32] LABS: CDiff Gene PCR NEGATIVE (Negative)
== END 2024-10-13 00:01 | disposition home or self-care (01) ==
LOC: HO.LNP
PROVIDERS: Visit Provider Internal Medicine
DX: R19.7 Diarrhea, unspecified (principal)
CPT/HCPCS: 87493; 87507

== ENCOUNTER → 2024-10-13 14:30 | Outpatient (REF) | payer OTHER, SELFPAY ==
--- NOTE | 2024-10-13 14:34 | CA_ITS ---
Transthoracic Echocardiogram Patient (Last, First, Middle): Yoselin Rodríguez Brody Gender: Female Date of : 1960 Age: 64 Procedure Date: 10/13/2024 Procedure Type: Transthoracic Echocardiogram Location: OP Height: 147.32 cm Weight: 73.94 kg BSA: 1.67 m2 Heart Rate: 74 bpm BP: 142 / 64 mmHg Steel Barrel Reamer: EITAN Referring MD: Efren Rausch MD Symptoms: R07.9 - Chest pain, unspecified Study Quality: Adequate ECG Rhythm: Sinus Conclusions: - The left ventricular systolic function is normal. The calculated ejection fraction is 66% by biplane method. - No obvious valvular pathology seen on this study. Findings Left Ventricle Normal left ventricular cavity size. There is normal left ventricular wall thickness. The left ventricular systolic function is normal. The calculated ejection fraction is 66% by biplane method. There is no evidence of regional wall motion abnormalities. Diastolic function is normal for age. Right Ventricle Normal right ventricular cavity size and systolic function. Atria Both atria are normal in size. Aortic Valve There is a normal trileaflet aortic valve. There is no aortic valve stenosis. There is no aortic valve regurgitation. Mitral Valve The mitral valve appears normal. There is trace mitral valve regurgitation. There is no mitral valve stenosis. Pulmonic Valve The pulmonic valve is likely normal. Tricuspid Valve There is trace tricuspid valve regurgitation. There is no evidence of pulmonary hypertension. Great Vessels The asc aorta is normal in size. Venous The inferior vena cava is normal in size and collapses greater than 50% with inspiration. Pericardium/Pleural There is no evidence of pericardial effusion. Prior Study Comparison No significant change compared to prior study dated: 05/25/2021. Recommendations, Care & Conclusions No obvious valvular pathology seen on this study. Measurements 2D Linear Measurements IVSd: 0.90 0.6-0.9/0.6-1.0 cm LVIDd: 4.26 3.9-5.3/4.2-5.9 cm LVIDd Index: 2.55 2.4-3.2/2.2-3.1 cm/m2 LVIDs: 3.26 2.0-3.6 cm LVPWd: 0.64 0.7-1.1 cm LA Diam: 3.80 2.7-3.8/3.0-4.0 cm LAIDs Index: 2.28 1.5-2.3 cm/m2 LV Mass: 123.04 67-162/88-224 g LV Mass Index: 73.68 43-95/49-115 g/m2 LVOT Diam: 1.90 3.0+(-)1.3 cm 2D Systolic Function EF 4C: 58.60 >55% EF 2C: 69.90 >55% EF BiP: 65.60 >55% Mitral Valve MV Pk E: 1.07 MV PK A: 0.95 MV Decel Time: 209.00 E/A: 1.10 E'Lateral: 6.74 E'Medial: 7.94 E/E' Med: 13.50 E/E' Lat: 15.90 PHT: 61.00 MVA PHT: 3.61 Decel Phelps: 5.10 Aortic Valve AoV Pk Andrew: 1.37 AoV Pk Grad: 8.00 NUNO: 1.73 LVOT LVOT Pk Andrew: 0.92 LVOT Mn Andrew: 0.69 LVOT VTI: 0.26 LVOT Pk Grad: 3.00 LVOT Mn Grad: 2.00 LVOT Diam: 1.90 LVOT Area: 2.84 Diastolic Function MV Pk E: 1.07 MV Pk A: 0.95 E/A: 1.10 E'Medial: 7.94 E/E' Med: 13.50 E' Laterial: 6.74 E/E' Lat: 15.90 Right Ventricle TAPSE (mm): 22.00 Tricuspid Valve TR Pk Andrew: 1.84 TR Pk Grad: 14.00 RA Press: 3.00 RVSP: 17.00 Great Vessels Aorta Sinus of Valsalva: 2.60 2.0-3.5 cm Ao Asc: 3.00 2.1-3.4 cm Pulmonary Veins Pulm Vein S/D 1.30 Pulmonary Valve PV Pk Andrew: 1.00 Peak PV Grad: 4.00 Updated in Other Vendor System with Status of Final Cornelius Patel MD electronically signed on 10/14/2024 11:35:33 AM with status of Final
--- OUTSIDE RECORDS SUMMARY | 2024-10-13 18:57 | XMS_ITS | Encounter Summary ---
Author Organization [employer] Address [address] [place] [address] Care Team Providers Care Cell Support Operator Name Role Phone Iqra Nelson MD Primary Care Provider + Johnny Casanova PharmD Unavailable [phone] Toñito Caraballo Unavailable Unavailable Reason for Visit * Reason Onset Date Comments Med Refill Appointment 10/11/2023 LVM-Re: her apt for today as [id number] @2pm Encounter Details Date Type Department Care Team (Late st Contact Info) Description 10/11/2023 Refill [facility] [address] [place] [address] Toñito Caraballo FNP Social History Tobacco Use Types Packs/Day Years Used Date Smoking Tobacco: Never Passive Smoke Exposure: Never Smokeless Tobacco: Never Alcohol Use Standard Drinks/Week Comments Never 0 (1 standard drink = 0.6 oz pur e alcohol) Depression Answer Date Recorded Patient Health Questionnaire-9 Score 8 10/15/2023 Patient Health Questionnaire-9 Score 8 10/15/2023 Last PHQ-9: Questionnaire Data Not on file 0 10/15/2023 Housing Stability Answer Date Recorded What is your housing situation today? I have nikky yaw 06/25/[address] you li ve. Do you have problems with any of the following? Mold 06/25/2023 Food Insecurity Answer Date Recorded Within the past 12 months, y ou worried that your food would run out before you got money to buy more: Never True 07/03/2023 Within the past 12 months,th e food you bought just didn't last and you didn't have enough money to get more: Never True Transportation Answer Date Recorded In the past 12 months, has l ack of transportation kept you from medical appts, meetings, work or from getting things needed for daily living? No 07/03/2023 Utilities Answer Date Recorded In the past 12 months, has t he electric, gas, oil or water company threatened to shut off services in your home? No 07/03/2023 Depression Answer Date Recorded Patient Health Questionnaire-2 Score 2 10/15/2023 Comments Unknown Sex and Gender Information Value Date Recorded Sex Assigned at Female 07/17/2022 10:31 AM EDT Legal Sex Female 10:31 AM EDT Gender Identity Female 07/17/2022 10:31 AM EDT Sexual Orientation Straight 07/17/2022 10 :31 AM EDT documented as of this encounter Plan of Treatment Not on file documented as of this encounter Goals Goal Patient Goal Type Associated Problems Recent Progress Patient-Stated? Author Blood Pressure < 150/90 Blood Pressure 155/76( 024 9:13 AM EDT) No Johnny Casanova, PharmLuis Armando Record your blood pressure once per day Blood Pressure No Johnny Casanova PharmD documented as of this encounter Visit Diagnoses Not on filedocumented in this encounter Additional Health Concerns Assessment Noted Time PHQ-9 Depression Total Score: 13 023 9:48 AM EST documented as of this encounter Care Teams Cell Support Operator Relationship Specialty Start Date End Date Iqra Nelson MD [address] [place] [id number] PCP - General Family Medicine 12/05/16 04/08/24 Johnny Casanova PharmD [address] [place] [phone] Pharmacist Internal Medicine 09/26/22 Toñito Caraballo FNP [address] [place] [id number] Nurse Practitioner Family Medicine 08/08/23 documented as of this encounter
--- OUTSIDE RECORDS SUMMARY | 2024-10-13 18:58 | XMS_ITS | Data Portability ---
Author Organization [employer] [facility], [place] - [facility] Address [address] [place] [phone] Care Team Providers Care Human Resources Benefits Administrator Name Role Phone [facility] OTHER [facility] OTHER Assessment Encounter Date Assessment Date Assessment LastModified by Organization Details LastModified Time 05/05/2023 05/05/2023 I provided real -time medical direction via phone for this encounter, and was available for additional phone based assistance as needed. I have reviewed and agree with the Assessment and Plan as documented by the Associate Professor Of English [email or web address] Not available 05/05/2023 17:13:47 08/27/2024 08/27/2024 service [...] 2 Ag, QL IA, respiratory specimen 2023 [facility], [address] [place] [address], [id number], 19:41:18 rapid flu (A+B) 2023 [facility], [address] [place] [address], [phone], 19:41:57 Referral None recorded. Procedures None recorded. Surgeries None recorded. Imaging None recorded. Medication Orders metronidazo le 500 mg tablet 2021 022 [id number] [address] [place] [address], [address], 2 18:29:57 metronidazo le 500 mg tablet 2021 022 ochoallo Not available 2 09:06:30 Augmentin 875 mg-125 mg tablet 2022 023 [id number] [address] [place] [address], [address], 3 16:07:33 azithromyci n 250 mg tablet 2022 023 [id number] [address] [place] [address], [address], 3 17:11:16 prednisone 20 mg tablet 2023 024 [id number] [address] [place] [address], [address], 4 16:22:59 prednisone 20 mg tablet 2023 024 [id number] [address] [place] [address], [address], 4 16:24:53 benzonatate 100 mg capsule 2023 024 [id number] [address] [place] [address], [address], 4 16:24:53 Patient TargetsNo targets recorded. Patient InstructionsNo instructions recorded. Reason for Referral None Reported. Results Created Date Observation Date Name Description Value Unit Range Abnormal Flag Note LastModifiedBy Organization Detail LastModifiedTime 08/27/20 24 08/27/2024 rapid flu (A+B) Flu negati ve Not Available Main - [facility] ed [address] [place] [address], [phone], 08/27/2024 19:14:26 08/27/20 24 08/27/2024 rapid SARS CoV 2 Ag, QL IA, respi rator y speci men rapid SARS CoV 2 Ag, QL IA, respiratory specimen negati ve Not Available Main - [facility] ed [address] [place], [address], 08/27/2024 19:14:26 Result Notes None recorded. Medical [...] Not available Not available Not available 05/05/2023 91951 RxNorm Not Available [employer] - production 4 03:47:03 3052 ibuprofen medicatio n hives Not available Not available 05/05/2023 5640 RxNorm SOB Karen Giraldo MD [address] [place] [address],[address], [place], [phone], [employer] 3 17:17:13 3053 Augmentin medicatio n dyspnea Not available Not available 05/05/2023 20818 2 RxNorm Urtic aria Karen Giraldo MD [address] [place] [address],[address], [place], [address], [employer] 3 17:18:03 Medications Name Sig Start Date [...] Not Available No t Available [employer] Change Management Analyst active Not Available Not Available No t [...] 3 98 % 98 % 71 /min 20472.8 8 g 97.1 [degF] 16 /min 181 mm[Hg] 79 mm[Hg] Not Available [employer] - production 3 16:05:25 Date Recorded Respiratory rate Body temperature Oxygen saturation Oxygen saturation in Arterial blood by Pulse oximetry Heart rate Systolic blood pressure Diastolic blood pressure Provider Name and Address Organization Details Last Updated DateTime 3 12 /min 98.4 [degF] 98 % 98 % 66 /min 152 mm[Hg] 74 mm[Hg] Not Available [employer] - production 3 17:08:28 Date Recorded Body weight Provider Name an d Address Organization Details Last Updated DateTime 05/05/2023 35281.82 g Lexy Mendoza [address] [place] [address],[address], [place], [address], [employer] 05/05/2023 17:09:15 Date Recorded Oxygen saturation Oxygen saturation in Arterial blood by Pulse oximetry Body weight Respiratory rate Heart rate Body temperature Systolic blood pressure Diastolic blood pressure Provider Name and Address Organization Details Last Updated DateTime 4 99 % 99 % 39021.5 36 g 16 /min 82 /min 98 [degF] 164 mm[Hg] 72 mm[Hg] Not Available [employer] 4 16:20:14 Date Recorded Body temperature Heart rate Respiratory rate Oxygen saturation Oxygen saturation in Arterial blood by Pulse oximetry Systolic blood pressure Diastolic blood pressure Provider Name and Address Organization Details Last Updated DateTime 2 98.6 [degF] 80 /min 16 /min 100 % 100 % 161 mm[Hg] 78 mm[Hg] Orlin Ruiz MD [address] [facility],[address], [place], [address] [place], [place] [employer] 2 18:30:24 Social History None recorded. Functional [...] 1109 Orlin Ruiz MD Main - [facility] [address] [place] [phone] 01/05/2022 18:15:37 06/07/2022 14:14:50 Acute pelvic pain 096864083 R10.2 Reports history of cramping after cervical polyp removal. Reports spotting, on re-assessm ent with research laboratory manager, passing fishy-sme lling white discharge. No abdominal tenderness on research laboratory manager examinatio n to suggest referred intra-abdo mary process. Reports symptoms are not consistent with UTI, so LE on UA likely represents inflammati on versus contaminat ion. Unable to perform pelvic examinatio n with research laboratory manager so difficult to assess for other pelvic pathology. Would benefit from close follow-up by physician who performed the procedure (Dr. Goldsmith?? ) Will treat empiricall y with Flagyl for BV in the interim. [id number] Andrea Thorpe MD Main - [facility] [address] [place] [phone] 04/24/2023 16:05:20 04/24/2023 23:29:29 Acute otitis media 3863778 H66.92 Patient with history of adult ear infection presents with typical symptoms of ear pain. Associate Professor Of English examinatio n consistent with ear infection. Will treat with augmentin. They can pick it up tonight, so did not give anything via research laboratory manager. 22847 Karen Giraldo MD Main - [facility] [address] [place] [address] 05/05/2023 17:08:26 05/07/2023 07:15:01 Acute otitis media 6075325 H66.92 Patient reports she has had azithromyc [...] or middle ear/ inner ear fluid drain 53495 Domi Garland MD Main - [address] [phone] 08/27/2024 16:20:07 08/28/2024 00:15:45 Acute exacerbation of chronic obstructive pulmonary disease 115931494 J44.1 Health Concerns Section Related Observation LastModified by Organization Detai ls LastModified Time None Recorded Concern Status LastModified by Organization Details LastModified Time None Recorded Advance Directives Directive None Recorded Payers Encounter Date Sequence Insurance Name Policy Number Policy Barrow Covered Member ID Barrow Member ID Guarantor Name 01/05/2022 1 [employer] - DOS PRIOR TO 2022 - DUAL ELIGIBLE (MEDICARE REPLACEMENT/AD VANTAGE - HMO) Yoselin Rodríguez [id number] Yoselin Rodríguez 04/24/2023 1 [employer] - DOS ON OR AFTER 2022 - DUAL ELIGIBLE - [facility] OPTIONS AND ONE CARE (MEDICARE REPLACEMENT/AD VANTAGE - HMO) Yoselin Rodríguez [id number] Yoselin Rodríguez 05/05/2023 1 [employer] - DOS ON OR AFTER 2022 - DUAL ELIGIBLE - [facility] OPTIONS AND ONE CARE (MEDICARE REPLACEMENT/AD VANTAGE - HMO) Yoselin Rodríguez [id number] Yoselin Rodríguez 08/27/2024 1 [employer] [facility] [employer] - DOS ON OR AFTER 2022 - DUAL ELIGIBLE - [facility] OPTIONS AND ONE CARE (MEDICARE REPLACEMENT/AD VANTAGE - HMO) Yoselin Rodríguez [id number] Yoselin Rodríguez Notes Date Note Type Note [...] with her previous UTI. Orlin Ruiz MD [address] [place] [address],[address], [place], [address], [employer] 01/05/2022 18:31:02 04/24/2023 text/html HPI: Severe left ear ache .................... .................... .................... .................... .................... .................... .................... . [facility] Nursing Assessment: Comments: [facility] triage nurse calling on behalf of member with request for MIH visit for complaints of outer ear discomfort for 3 days Aware MIH visit does not include inner ear eval. [facility] unsure fever/chills Verify member name/- Andrea Thorpe MD [address] [facility],[address], [place], [address], [employer] 04/24/2023 16:07:52 05/05/2023 text/html HPI: mbr with know ear infection for two weeks/nasal congestion/moderate pain, recent ED visit ordered Fluconazole, mbr looking for oral antibiotics, requesting MIH. Protocol Used: Ear - Discharge Protocol-Based Disposition: Consider [facility], [facility] Community Clinician, or PCP visit within [...] .................... .................... .................... .................... .................... .................... ........... Associate Professor Of English Note From Estrada Jain: Dispatched to the [...] Patient noted to have a steady gait. [facility] contacted to discuss patient presentation, complaints, and clinical findings. [facility] orders Azythromycin 500mg PO be [...] .................... . Disposition: Fulfilled Karen Giraldo MD [address] [place] [address],[address], [place], [phone], [employer] 05/05/2023 22:29:41 08/27/2024 text/html HPI: Member calling [...] any additional information to process this visit. Associate Professor Of English Organization Information for Shantanu Olson [employer] Name: [facility] Address: [address] [place] [address], Director Of Rooms: Zachary Heredia MD CLIA No.: [id number] Associate Professor Of English POC Test Results from Shantanu Olson Rapid COVID antigen (16:14:44) COVID: - Attachments uploaded as part of this test result can be found under Documents section. Rapid influenza antigen (16:14:45) Flu: - Attachments uploaded as part of this test result can be found under Documents section. .................... .................... .................... .................... .................... .................... .................... . Associate Professor Of English Note From Shantanu Olson: Pt co dry [...] clear bilaterally, Covid and flu swab neg. [facility] Dada contacted and 20mg prednisone given PO, right meds, dose, date and route. RX called in for prednisone and benzonatate and continue with nebulizer treatments.. Pt education on signs indicating the ER. Pt advised to continue with diving board assembler appt. Pt advised to follow up with PCP. .................... .................... .................... .................... .................... .................... .................... . [facility] Consulted: Domi Garland .................... .................... .................... .................... .................... .................... .................... . Disposition: Fulfilled Domi Garland MD [address] [facility],[address] [facility], [place], [address], [place] - [facility] 08/27/2024 19:14:58 OBGyn Episode No OBEpisode recorded.
--- OUTSIDE RECORDS SUMMARY | 2024-10-13 18:58 | XMS_ITS | Encounter Summary ---
Author Organization [employer] Address [address] [facility] 7[address] [place] [address] Care Team Providers Care Brand Inspector Name Role Phone Iqra Nelson MD Primary Care Provider + Johnny Casanova PharmD Unavailable [phone] Toñito Caraballo Unavailable Unavailable Reason for Visit * Reason Comments Med Refill Encounter Details Date Type Department Care Team (Late st Contact Info) Description 02/26/2023 Refill [facility] MEDICINE [address] [place] [address] Toñito Caraballo FNP Major depressive disorder, recurrent, moderate (CMS/HCC) Social History Tobacco Use Types Packs/Day Years Used Date Smoking Tobacco: Never Passive Smoke Exposure: Never Smokeless Tobacco: Never Alcohol Use Standard Drinks/Week Comments Never 0 (1 standard drink = 0.6 oz pur e alcohol) Comments Unknown Sex and Gender Information Value Date Recorded Sex Assigned at Female 07/17/2022 10:31 AM EDT Legal Sex Female 10:31 AM EDT Gender Identity Female 07/17/2022 10:31 AM EDT Sexual Orientation Straight 07/17/2022 10 :31 AM EDT COVID-19 Exposure Response Date Recorded In the last 10 days, have yo u been in contact with someone who was confirmed or suspected to have Coronavirus/COVID-19? No / Unsure 02/02/2023 1:12 PM EDT documented as of this encounter Plan of Treatment Not on file documented as of this encounter Goals Goal Patient Goal Type Associated Problems Recent Progress Patient-Stated? Author Blood Pressure < 150/90 Blood Pressure 155/76( 024 9:13 AM EDT) No Johnny Casanova PharmD Record your blood pressure once per day Blood Pressure No Johnny Casanova PharmD documented as of this encounter Visit Diagnoses Diagnosis Major depressive disorder, recurrent, moderate ([facility]/HCC) Major depressive disorder, recurrent episode, moderate documented in this encounter Additional Health Concerns Assessment Noted Time PHQ-9 Depression Total Score: 10 023 3:45 PM EDT documented as of this encounter Care Teams Brand Inspector Relationship Specialty Start Date End Date Iqra Nelson MD [address] [place] [address] PCP - General Family Medicine 12/05/16 04/08/24 Johnny Casanova, RachelD [address] [place] [address] Pharmacist Internal Medicine 09/26/22 Toñito Caraballo FNP [address] [place] [address] Nurse Practitioner Family Medicine 08/08/23 documented as of this encounter
--- OUTSIDE RECORDS SUMMARY | 2024-10-13 18:58 | XMS_ITS | Encounter Summary ---
Author Organization [employer] [facility] Address [address] [facility] 7t [place] [address] Care Team Providers Care Hospitalist Physician Name Role Phone Iqra Nelson MD Primary Care Provider + Johnny Casanova PharmD Unavailable [phone] Toñito Caraballo BOTTLE PACKING MACHINE CLEANER Unavailable Unavailable Encounter Details Date Type Department Care Team ([facility] st Contact Info) Description 10/10/2022 Orders Only [facility] MEDICINE [address] [place], [place] [phone] Iqra Nelson MD [address] [place], [place] [phone] Vitamin D deficiency (Primary Dx); Senile osteoporosis Social History Tobacco Use Types Packs/Day Years Used Date Smoking Tobacco: Never Smokeless Tobacco: Never Alcohol Use Standard [...] suspected to have Coronavirus/COVID-19? No / Unsure 10/12/2022 1:17 PM EST documented as of this encounter Plan of [...] as of this encounter Visit Diagnoses Diagnosis Vitamin D deficiency- Primary Senile osteoporosis documented in this encounter Additional Health Concerns Assessment Noted Time PHQ-9 Depression Total Score: 8 09/04/20 22 9:34 AM EST documented as of this encounter Care Teams Hospitalist Physician Relationship Specialty Start Date End Date Iqra Nelson MD [address] [place] [address] PCP - General Family Medicine 12/05/16 04/08/24 Johnny Casanova, Ti [address] [place] [address] Pharmacist Internal Medicine 09/26/22 Toñito Caraballo FNP [address] [place] [address] Nurse Practitioner Family Medicine 08/08/23 documented as of this encounter
--- OUTSIDE RECORDS SUMMARY | 2024-10-13 18:58 | XMS_ITS | Encounter Summary ---
Author Organization [employer] [facility] Address [address] [facility] 7t [place] [address] Care Team Providers Care Flue Cleaner Name Role Phone Iqra Nelson MD Primary Care Provider + Johnny Casanova PharmD Unavailable [phone] Toñito Caraballo Unavailable Unavailable Reason for Visit * Reason Comments Med Refill Encounter Details Date Type Department Care Team (Late st Contact Info) Description 02/21/2023 Refill [facility] MEDICINE [address] [place] [address] Toñito Caarballo FNP Social History Tobacco Use Types Packs/Day [...] 024 9:13 AM EDT) No Johnny Casanova, PharmD Record your blood pressure once per day Blood Pressure No Johnny Casanova PharmD documented as of this encounter Visit Diagnoses Not on filedocumented in this encounter Additional Health Concerns Assessment Noted Time PHQ-9 Depression Total Score: 10 023 3:45 PM EDT documented as of this encounter Care Teams Flue Cleaner Relationship Specialty Start Date End Date Iqra Nelson MD [address] [place] [address] PCP - General Family Medicine 12/05/16 04/08/24 Johnny Casanova PharmD [address] [place] [address] Pharmacist Internal Medicine 09/26/22 Toñito Caraballo FNP [address] [place] [address] Nurse Practitioner Family Medicine 08/08/23 documented as of this encounter
--- OUTSIDE RECORDS SUMMARY | 2024-10-13 18:58 | XMS_ITS | Encounter Summary ---
Author Organization [employer] Address [address] [facility] 7t [place] [address] Care Team Providers Care Permastone Applicator Name Role Phone Johnny Casanova PharmD Unavailable [phone] Toñito Caraballo COMPOUNDING SCALER Unavailable Unavailable Encounter Details Date Type Department Care Team ([facility] Contact Info) Description 10/03/2024 Orders Only GENERIC EXTERNAL DATA DEPARTMENT Provider, Generic External Data Social History Tobacco Use Types Packs/Day Years Used Date Smoking Tobacco: Never Passive Smoke Exposure: Never Smokeless Tobacco: Never Alcohol Use Standard Drinks/Week Comments Never 0 (1 standard drink = 0.6 oz pur e alcohol) Depression Answer Date Recorded Patient Health Questionnaire-9 Score 9 03/24/2024 Patient Health Questionnaire-9 Score 9 03/24/2024 Last PHQ-9: Questionnaire Data Not on file 0 03/24/2024 Housing Stability Answer Date Recorded What is your housing situation today? I have nikkyjodie tidwell 06/25/[address] you li [...] Date Recorded Patient Health Questionnaire-2 Score 2 03/24/2024 Comments Unknown Sex and Gender Information Value [...] Casanova PharmD documented as of this encounter Procedures Procedure Name Priority Date/Time Associated Diagnosis Comments GRAM STAIN Routine 10/03/2024 12:00 AM EST documented in this encounter Results * Gram stain (10/03/2024 12:00 AM EST) 10/03/2024 10/03/2024 Comment:Sputum Narrative [facility] - 10/06/2024 9:08 AM EST Gram stain results: 4+ polys 2+ epithelial cells 3+ Gram-positive cocci 3+ Gram-positive rods 2+ Gram-negative rods Sputum Culture BAP Sputum Culture 4+ mixed upper-resp lara Haemophilus parainfluenzae B-Lac Susc (reported) Beta-lactamase not produced; suggests PEN/AMP susceptibility Quant Org ID 3+ Specimen Source: Sputum us Generic External Data Provider LAB MICROBIOLOGY - GENERAL ORDERABLES Final Result [facility] [address] [place] [phone] documented in this encounter Visit Diagnoses Not on filedocumented in this encounter Additional Health Concerns Assessment Noted Time PHQ-9 Depression Total Score: 9 03/24/20 24 9:50 AM EDT documented as of this encounter Care Teams Permastone Applicator Relationship Specialty Start Date End Date Johnny Casanova PharmD [address] [place] [address] Pharmacist Internal Medicine 09/26/22 Toñito Caraballo FNP [address] [place] [address] Nurse Practitioner Family Medicine 08/08/23 documented as of this encounter
--- OUTSIDE RECORDS SUMMARY | 2024-10-13 18:58 | XMS_ITS | Encounter Summary ---
Author Organization [employer] [facility] Address [address] [facility] 7t [place] [address] Care Team Providers Care Account Management Assistant Name Role Phone Iqra Nelson MD Primary Care Provider + Johnny Casanova PharmD Unavailable [phone] Toñito Caraballo SCRIPT DEVELOPER Unavailable Unavailable Encounter Details Date Type Department Care Team ([facility] st Contact Info) Description 03/08/2023 Abstract [facility] MEDICINE [address] [place] [address] Iqra Nelson MD [address] [place] [address] Social History Tobacco Use Types Packs/Day Years [...] once per day Blood Pressure No Johnny Casanova, PharmD documented as of this encounter Procedures Procedure Name Priority Date/Time Associated Diagnosis Comments HM COLONOSCOPY Routine 03/04/2018 8:58 AM EDT documented in this encounter Results * Colonoscopy (03/04/2018 8:58 AM EDT) Colonoscopy Normal Normal Narrative Claudia Cam - 03/04/2018 8:58 AM EDT Recommended 10 year follow up us Historical Provider HEALTH MAINTENANCE Final Result documented in this encounter Visit Diagnoses Not on filedocumented in this encounter Additional Health Concerns Assessment Noted Time PHQ-9 Depression Total Score: 14 023 11:23 AM EDT documented as of this encounter Care Teams Account Management Assistant Relationship Specialty Start Date End Date Iqra Nelson MD [address] [place] [address] PCP - General Family Medicine 12/05/16 04/08/24 Johnny Casanova, RachelD [address] [place] [address] Pharmacist Internal Medicine 09/26/22 Toñito Caraballo FNP [address] [place] [address] Nurse Practitioner Family Medicine 08/08/23 documented as of this encounter
--- OUTSIDE RECORDS SUMMARY | 2024-10-13 18:58 | XMS_ITS | Encounter Summary ---
Author Organization [employer] [facility] Address [address] [facility] 7t [place] [address] Care Team Providers Care Glass Smoother Name Role Phone Iqra Nelson MD Primary Care Provider + Johnny Casanova PharmD Unavailable [phone] Toñito Caraballo Unavailable Unavailable Reason for Visit * Reason Comments Med Refill Encounter Details Date Type Department Care Team (Late st Contact Info) Description 04/22/2023 Refill [facility] MEDICINE [address] [place] [address] Toñito Caraballo FNP Social History Tobacco Use [...] suspected to have Coronavirus/COVID-19? No / Unsure 03/26/2023 1:17 PM EDT documented as of this encounter [...] documented as of this encounter Care Teams Glass Smoother Relationship Specialty Start Date End Date Iqra Nelson MD [address] [place] [address] PCP - General Family Medicine 12/05/16 04/08/24 Johnny Casanova PharmD [address] [place] [address] Pharmacist Internal Medicine 09/26/22 Toñito Caraballo FNP [address] [place] [address] Nurse Practitioner Family Medicine 08/08/23 documented as of this encounter
--- OUTSIDE RECORDS SUMMARY | 2024-10-13 18:58 | XMS_ITS | Clinical Summary ---
Author Organization [facility] Address [address] [place] [address] Care Team Providers Care Medical Equipment Sales Name Role Phone Johnny Casanova PharmD Unavailable Toñito Caraballo CAR DUMPER Unavailable Unavailable Allergies Active Allergy Reactions Criticality Noted Date Comments Amoxicillin-Pot Clavulanate Shortness of breath High 06/01/2023 Aspirin Anaphylaxis,Hives High 12/07/2016 Clavulanic Acid Angioedema 05/03/2023 Hives Codeine Hives 12/07/2016 Diclofenac Sodium-Menthol Crm Rash Low 04/04/2023 Used one time, developed rash. Used benadryl to resolve. Ibuprofen Hives 06/01/2023 Mushroom Extract Complex (Do Not Select) 05/03/2023 Other Shortness of breath,Swelling,Rash ,Cough High 08/24/2022 Seafood / Eggs ( per nextgen) Shellfish Allergy 03/26/2023 Vancomycin Unknown 12/07/2016 Other reaction(s): Feels hot/feverish, Generalized skin eruption caused by drug and medicament Medications budesonide-formo terol (Symbicort) 160-4.5 MCG/ACT inhaler Inhale 2 puffs every 12 (twelve) hours. inhale 2 puff by inhalation route 2 times every day in the morning and evening 2 Active dicyclomine (Bentyl) 20 MG tablet Take 1 tablet by mouth every 6 (six) hours. take 1 tablet by oral route 4 times every day Active diphenhydrAMINE (Sominex) 25 MG tablet 1 (one) time each day. Active omeprazole (PriLOSEC) [address] capsule Take 1 capsule by mouth every 12 (twelve) hours. take 1 capsule by oral route 2 times every day before a meal Active sucralfate (Carafate) 1 g tablet take 3 grams by mouth daily as directed Active Dupixent 200 MG/1.14ML solution pen-injector Inject 200mg under the skin every 14 days as directed 2 Active acetaminophen (Tylenol) 500 MG tablet Purchases OTC - Takes 2 tablets by mouth at bedtime as needed Active albuterol (Ventolin HFA) 108 (90 Base) MCG/ACT inhalerIndicatio ns:Moderate persistent asthma with exacerbation Inhale 2 puffs every 4 (four) hours. inhale 2 puff by inhalation route every 4 - 6 hours as needed 18 g 2 3 Active albuterol (2.5 MG/3ML) 0.083% nebulizer solutionIndicati ons:Moderate persistent asthma with exacerbation Take 3 mL (2.5 mg) by nebulization every 6 (six) hours if needed for wheezing. 75 mL 11 3 Active LORazepam (Ativan) 1 MG tablet Take 1 tablet orally 1 hour before dental procedure 2 tablet 2 3 Active SM Fiber Laxative 500 MG tablet TAKE 1 TABLET BY MOUTH TWICE DAILY 3 Active lisinopril 40 MG tablet TAKE 1 TABLET BY MOUTH EVERY DAY 90 tablet 3 3 Active SUMAtriptan (Imitrex) 50 MG tabletIndication s:Chronic migraine with aura without status migrainosus, not intractable take 1 tablet by oral route once with fluids as early as possible after the onset of a migraine attack;may repeat after 2 hours if headache returns 9 tablet 11 3 Active chlorthalidone (Hygroton) 25 MG tabletIndication s:Essential hypertension Take 1 tablet (25 mg) by mouth in the morning. 30 tablet 11 4 025 Active estradiol (Estrace) 0.1 MG/GM vaginal creamIndications :Pain in female genitalia on intercourse Insert 1 gram vaginally once daily as directed 42.5 g 4 Active fluticasone (Flonase) 50 MCG/ACT nasal sprayIndications :Non-recurrent acute serous otitis media of both ears USE 1 SPRAY IN EACH NOSTRIL EVERY MORNING 16 g 2 4 Active FLUoxetine (PROzac) 20 MG capsule Take 1 capsule (20 mg) by mouth Once daily. 90 capsule 3 4 Active hydrOXYzine HCl (Atarax) 10 MG tablet TAKE 1 TO 2 TABLETS BY MOUTH EVERY 6 HOURS NEEDED FOR ANXIETY 100 tablet 1 4 Active traZODone (Desyrel) 100 MG tablet Take 1 tablet (100 mg) by mouth at bedtime. 90 tablet 3 4 Active melatonin 3 MG tablet Take 1 tablet (3 mg) by mouth if needed at bedtime for sleep. 90 tablet 3 4 Active Active Problems Problem Noted Date Diagnosed Date Vascular nevus 10/22/2023 Assessment & Plan (10/22/2023 11:10 AM EST): On left knee, refer to dermatology as it bled recently. Memory loss 10/22/2023 Assessment & Plan (10/22/2023 12:32 PM EST): Most likely related to anxiety, uncontrolled HTN. We discussed the importance of controlling CV risk factors, specially HTN in her case. 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 Counseled to reach out to BH team, she declines FU in 2m Decreased hearing of left ear 06/08/2023 Assessment & Plan (06/08/2023 11:59 AM EDT): Refer to ENT Dietary counseling 06/08/2023 Assessment & Plan (06/08/2023 12:05 PM EDT): Pt is obese and has tried different diets. She wants a referral to the fine sander. Discussed re weight reduction options including exercise, life style modifications, diet, referral to placement specialist. Discussed re lower calorie intake, increase dietary fiber Exercise counseling 06/08/2023 Dysuria 06/08/2023 Assessment & Plan (06/08/2023 12:01 PM EDT): Order UI Allergy to antibacterial drug 05/03/2023 Assessment & Plan (05/03/2023 1:39 PM EDT): Pt is adamant about no penicillin allergy May be allergic to clavulanate Non-recurrent acute serous otitis media of both ears 05/03/2023 Assessment & Plan (05/03/2023 1:40 PM EDT): Effusion is clear, likely resolved Use flonase daily and tylenol prn until sx resolve Shoulder arthritis 05/03/2023 Assessment & Plan (05/03/2023 1:41 PM EDT): Pt declines referral to PT and has failed repeatedly to show for acupuncture clinic Use only tylenol w/ flexeril, may need steroid injection Refer to orthopaedics Asthma 05/03/2023 Chronic obstructive pulmonary disease 05/03/2023 Assessment & Plan (10/22/2023 11:12 AM EST): Doing well. 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 DC diltiazem And continue Lisinopril FU with [facility] clinic and with me in 8w Order BMP Counseled re low salt diet/increase moderate physical activity. Check home BP BIW and prn CP/GUSTAFSON/DANIEL Non smoking patient. Assessment & Plan (06/08/2023 11:59 AM EDT): Uncontrolled. Increase diltiazem to 240 mg Counseled re low salt diet/increase moderate physical activity. Check home BP BIW and prn CP/GUSTAFSON/DANIEL Non smoking patient. Fu with me in 6 weeks Irritable bowel syndrome 05/03/2023 Migraine headache 05/03/2023 Assessment & Plan (07/20/2023 10:40 AM EDT): Controlled. Continue Imitrex Severe obesity 05/03/2023 Assessment & Plan (10/22/2023 11:14 AM EST): Discussed re weight reduction options including exercise, life style modifications, diet. Discussed re lower calorie intake, increase dietary fiber Vitamin D deficiency 03/26/2023 Assessment & Plan (03/26/2023 3:05 PM EDT): See above recheck levels in 3 months Symptomatic irreversible pulpitis 01/15/2023 Fracture of crown, enamel, a nd dentin of tooth without pulp exposure 01/15/2023 Dental caries 12/25/2022 Dental plaque 12/14/2022 Major depressive disorder, r ecurrent episode, moderate with anxious distress 09/04/2022 Assessment & Plan (03/24/2024 10:29 AM EDT): She is still doing well, other than persistent anxiety with some panic attacks. Reassured that Hydroxyzine is safe, not habit-forming, and urged to take as needed for anxiety, not wait for full-blown panic attack. For sleep-onset insomnia, try Melatonin 3 mg taken approx 15 minutes prior to bedtime. Continue other medications: Trazodone 100 mg at bedtime, Fluoxetine 20 mg daily. F/U with therapist as usual and with agency prescriber when available. This provider will be retiring, so any issues or concerns, contact [facility]. All her questions were answered and I have wished her well. She agrees with the plan. Assessment & Plan (10/15/2023 2:33 PM EST): She is doing better. Has some social supports and a good relationship with her therapist. Has found the Trazodone 150 makes her dizzy. Will decrease to Trazodone 100 mg at bedtime. Continue Fluoxetine 20 mg daily. May also take Hydroxyzine 10 mg 1-2 at bedtime and prn anxiety. On 06/14/2023 provider informed the pt that I would be retiring. Meanwhile, F/U with me in 2 months. She agrees with the plan. Assessment & Plan (08/14/2023 3:37 PM EST): Patient is currently struggling with seasonal and relationship stressors, but medications seem to be working well. Continue Fluoxetine 20 mg daily, Trazodone 150 mg at bedtime. May also take Hydroxyzine 10 mg 1-2 at bedtime and prn anxiety. F/U with therapist as usual. On 06/14/2023 provider informed the pt that I would be retiring within the next year or so, so suggest she discuss with therapist whether she could be referred to agency psychiatrist. Meanwhile, F/U with me in 2 months. She agrees with the plan. Assessment & Plan (06/14/2023 9:24 AM EDT): Less tolerant of stressors, with anxiety and poor sleep. Will increase to Fluoxetine 20 mg daily. Continue Trazodone 150 mg at bedtime. May also take Hydroxyzine 10 mg 1-2 at bedtime and prn anxiety. F/U with therapist as usual. Today 06/14/2023 provider informed the pt that I would be retiring within the next year or so, so suggest she discuss with therapist whether she could be referred to agency psychiatrist. Meanwhile, F/U with me in 6-8 weeks. She agrees with the plan. Assessment & Plan (03/08/2023 12:38 PM EDT): Not sleeping as well. Recommended taking the Trazodone nightly and increasing to 150 mg at bedtime. For severe anxiety associated with dental procedures, she may take Lorazepam 1 mg 1 hour prior to procedure. Do tell the dentist about this pre-medication. Continue current medications and with therapist as usual. F/U with me in 2 months. She agrees with the plan. Assessment & Plan (01/09/2023 5:42 PM EDT): Generally doing very well, making progress with recovering from grief. Anticipatory guidance re upcoming Mother's day and anniversary of her birthday of her son. For severe anxiety associated with dental procedures, she may take Lorazepam 0.5 mg 1 hour prior to procedure. Do tell the dentist about this pre-medication. Continue current medications and with therapist as usual. F/U with me in 2 months. She agrees with the plan. Assessment & Plan (11/09/2022 11:02 AM EST): Generally doing very well, making progress with recovering from grief. Continue current medications and with therapist as usual. F/U with me in 2 months. She agrees with the plan. Assessment & Plan (09/04/2022 10:18 AM EST): Generally doing very well, making progress with recovering from grief. Continue current medications and with therapist as usual. F/U with me in 6-8 weeks. She agrees with the plan. Acute vaginitis 08/24/2022 Atrophy of vagina 08/24/2022 Assessment & Plan (10/09/2022 2:41 PM EST): r/o atrophic vaginitis -FU papsmear results. Candidiasis of vagina 08/24/2022 Grieving 08/24/2022 HPV (human papilloma virus) infection 08/24/2022 Assessment & Plan (10/09/2022 2:43 PM EST): -FU results of PAP smear -FU with me in 2 months Increased frequency of urination 08/24/2022 Osteoporosis 08/24/2022 Assessment & Plan (03/26/2023 3:05 PM EDT): Continue vit D supplementation until May 2023 and will start Fosamax then Counseled regarding risk prevention of falls Assessment & Plan (12/11/2022 3:26 PM EDT): Started on vitamin D supplementation for 6 months will recheck levels then and then start her on bisphosphonate. Assessment & Plan (10/09/2022 2:44 PM EST): -Continue Calcium BID and FU dexascan results Pain in female genitalia on intercourse 08/24/20 Assessment & Plan (10/22/2023 12:26 PM EST): Continue estrace cream and fu with [facility]. Refill sent to pharmacy. Assessment & Plan (10/09/2022 2:44 PM EST): Most likely secondary to atrophic vaginitis. -use estrogen cream daily x2 weeks and then 3 times per week. Pneumonia due to COVID-19 virus 08/24/2022 Polyp of cervix 08/24/2022 Assessment & Plan (03/26/2023 2:56 PM EDT): s/p resection by [facility], more than a year ago, last PAP was normal refer to [facility] second opinion due to persistent dyspareunia Postcoital bleeding 08/24/2022 Assessment & Plan (03/26/2023 3:04 PM EDT): See previous issue and refer to [facility] Pruritus 08/24/2022 Right upper quadrant pain 08/24/2022 Tendinosis 08/24/2022 Fall 08/24/2022 Assessment & Plan (03/26/2023 2:55 PM EDT): had a rib cage trauma, r/o fracture, order x-rays apply ice to affected area and use diclofenac gel PRN + tylenol Post-menopausal 08/24/2022 Assessment & Plan (10/09/2022 2:42 PM EST): -Order bone density test -FU PAP results -continue Calcium BID Dyspnea 02/11/2019 Moderate persistent asthma without complication 02/11/2019 Assessment & Plan (07/20/2023 10:39 AM EDT): Controlled. Cont Symbicort and Dupixent q2wk + albuterol PRN and FU w/ coordinate measuring equipment operator Decline flue and Covid IZ today, advised her to have it as soon as she can Edema of lower extremity 12/13/2018 Moderate persistent asthma with exacerbation Assessment & Plan (12/11/2022 3:28 PM EDT): Pt responding well to albuterol updraft q6 hours continue q4 hours x 24 hours and then q6 hours continue Symbicort counseled to right a letter to landlord and apartment complex management with a copy to housing to check on air ducts. Reconsult PRN No need for antibiotics at this time. Influenza 11/20/2018 Senile osteoporosis 08/02/2018 Dry eyes 04/26/2018 Anxiety 04/03/2018 Left sided abdominal pain 04/03/2018 Chronic low back pain 02/05/2018 Dysphagia 02/05/2018 Diarrhea 08/30/2017 Spasm of cervical paraspinous muscle 04/27/2017 Acute frontal sinusitis 12/07/2016 Benign essential hypertension 12/07/2016 Assessment & Plan (07/20/2023 10:38 AM EDT): Still Uncontrolled, could be related to steroid injection or pain. Continue Lisinopril + Diltiazem same dose Counseled re low salt diet/increase moderate physical activity. Check home BP BIW and prn CP/GUSTAFSON/DANIEL Non smoking patient. Fu w/ CD[facility] clinic next month and w/ me in 3 m Assessment & Plan (05/03/2023 1:37 PM EDT): Uncontrolled. Repeated 160/85 Could be 2/2 pain, no med changes today Counseled re low salt diet/increase moderate physical activity. Check home BP BIW and prn CP/GUSTAFSON/DANIEL Non smoking patient. FU w/ me in 4 weeks Assessment & Plan (03/26/2023 3:06 PM EDT): No change in medications today, reminded about compliance with both lisinopril and diltiazem fu with HTN clinic in two weeks and FU with me in 4-6 weeks Counseled re low salt diet/increase moderate physical activity. Check home BP BIW and prn CP/GUSTAFSON/DANIEL Non smoking patient. Foot pain 12/07/2016 Migraine without aura, not refractory 12/07/2016 Mild intermittent asthma 12/07/2016 Resolved Problems Problem Noted Date Diagnosed Date Resolved Date Pulmonary embolism 11/27/2018 4 Encounters Date Type Department Care Team Description 10/03/2024 Orders Only GENERIC EXTERNAL DATA DEPARTMENT Provider, Generic External Data from Last 3 Months Immunizations Name Administration Dates Next Due Moderna Covid-19 Vaccine 12+ 09/19/2021,03/14/20 21,02/17/2021 Social History Tobacco Use Types Packs/Day Years Used Date Smoking Tobacco: Never Passive Smoke Exposure: Never Smokeless Tobacco: Never Tobacco Cessation:Counseling Given: Not Answered Alcohol Use Standard Drinks/Week Comments Never 0 (1 standard drink = 0.6 oz pur e alcohol) Depression Answer Date Recorded Patient Health Questionnaire-9 Score 9 03/24/2024 Patient Health Questionnaire-9 Score 9 03/24/2024 Last PHQ-9: Questionnaire Data Not on file 0 03/24/2024 Housing Stability Answer Date Recorded What is your housing situation today? I have nikky tidwell 06/25/[address] you [...] Orientation Straight 07/17/2022 10 :31 AM EDT Last Filed Vital Signs Vital Sign Reading Time Taken Comments Blood Pressure 155/76 12/28/2023 9:13 AM EDT Pulse 75 12/28/2023 9:13 AM EDT Temperature 36.7 ??C (98.1 ??F) 12/28/2023 9:13 AM ED T Respiratory Rate 18 12/28/2023 9:13 AM EDT Oxygen Saturation 100% 12/28/2023 9:13 AM EDT Inhaled Oxygen Concentration - - Weight 70.4 kg (155 lb 3.2 oz) 12/28/2023 9:13 A M EDT Height 149.9 cm (4' 11 ) 10/22/2023 10:44 AM EST Body Mass Index 31.35 10/22/2023 10:44 AM EST Plan of Treatment Health Maintenance Due Date Last Done Comments CT Colonography 1960 FIT DNA/Cologuard 1960 FIT 1960 FOBT 1960 HIV Screening 1960 Sigmoidoscopy 1960 Pneumococcal Vaccine: Pediatrics (0 to 5 Years) and At-Risk Patients (6 to 64 Years) (1 of 2 - PCV) 1966 Alcohol/Substance Use Screening 1972 Hepatitis C Screening 1978 DTaP/Tdap/Td Vaccines (1 - Tdap) 1979 Zoster Vaccines (1 of 2) 2010 RSV Patients and Patients Aged 60 years or older (1 - Risk 60-74 years 1-dose series) 2020 Dental Oral Exam 04/12/2023 10/12/2022 Mammogram 04/21/2023 04/21/2021 Dental Prophylaxis 06/17/2023 12/14/2022 Dental X-Ray: Bitewings 10/13/2023 10/12/2022 SDOH Screening 12/12/2023 12/11/2022 COVID-19 Vaccine ( season) 2024 09/19/2021, 03/14/2021, 02/17/2021 Influenza Vaccine (#1) 2024 Depression Monitoring (PHQ-9) 09/24/2024 03/24/2024, 03/24/2024 Tobacco Screening 10/22/2024 10/22/2023 Depression Screening 03/24/2025 03/24/2024, 03/24/20 Dental X-Ray: Full Mouth 10/13/2025 10/12/2022 Pap Smear 05/31/2026 05/31/2023, 09/18, 10/09/2022 Colonoscopy 03/04/2028 03/04/2018, 03/04/2018 Colorectal Cancer Screening 03/04/2028 Cervical Cancer Screening 05/31/2028 HPV/Cotest 05/31/2028 05/31/2023, 09/18, 07/18/2021, Additional history exists Lipid Panel 11/08/2028 11/08/2023, 07/27/2021 HIB Vaccines Aged Out No longer eligi ble based on patient's age to complete this topic HPV Vaccines Aged Out No longer eligi ble based on patient's age to complete this topic Hepatitis A Vaccines Aged Out No long er eligible based on patient's age to complete this topic Hepatitis B Vaccines Aged Out No long er eligible based on patient's age to complete this topic IPV Vaccines Aged Out No longer eligi ble based on patient's age to complete this topic Meningococcal Vaccine Aged Out No beka martínez eligible based on patient's age to complete this topic RSV under 20 months Aged Out No longe r eligible based on patient's age to complete this topic Rotavirus Vaccines Aged Out No longer eligible based on patient's age to complete this topic Goals Goal Patient Goal Type Associated Problems Recent Progress Patient-Stated? Author Blood Pressure < 150/90 Blood Pressure 155/76( 024 9:13 AM EDT) No Johnny Casanova, Ti Record your blood pressure once per day Blood Pressure No Johnny Casanova PharmD Procedures Procedure Name Priority Date/Time Associated Diagnosis Comments GRAM STAIN Routine 10/03/2024 12:00 AM EST LIPID PANEL WITH REFLEX TO DIRECT LDL Routine 11/08/2023 12:00 AM EST Essential hypertension HPV MRNA E6/E7 REFLEX TO HPV 16, 18/45 Routine 05/31/2023 1:12 PM EDT PAP SMEAR Routine 05/31/2023 1:12 PM EDT PROPHYLAXIS - ADULT Routine 12/14/2022 2 :00 PM EDT DIAGNOSTIC - DIAGNOSTIC IMAGING - INTRAORAL - COMPREHENSIVE SERIES OF RADIOGRAPHIC IMAGES Routine 10/12/2022 1:30 PM EST COMPREHENSIVE ORAL EVALUATION - NEW OR ESTABLISHED PATIENT Routine 10/12/2022 1:30 PM EST MAMMOGRAM GENERIC Routine 04/21/2021 1:1 5 PM EDT HM COLONOSCOPY Routine 03/04/2018 8:58 AM EDT from Last 3 Months or Most Recently Relevant to Health Maintenance Results * Gram stain (10/03/2024 12:00 AM EST) 10/03/2024 10/03/2024 Comment:Sputum Narrative [facility] - 10/06/2024 9:08 AM EST Gram stain results: 4+ polys 2+ epithelial cells 3+ Gram-positive cocci 3+ Gram-positive rods 2+ Gram-negative rods Sputum Culture BAP Sputum Culture 4+ mixed upper-resp lara Haemophilus parainfluenzae B-Lac Susc (reported) Beta-lactamase not produced; suggests PEN/AMP susceptibility Quant Org ID [id number] Specimen Source: Sputum us Generic External Data Provider LAB MICROBIOLOGY - GENERAL ORDERABLES Final Result [facility] [address] [place] [phone] * Lipid Panel with Reflex to Direct LDL (11/08/2023 12:00 AM EST) Triglycerides 128 <150 mg/dL [facility] Comment:Desirable Triglyceri de: less than 150 mg/dLBorderline High Triglyceride 150-199 mg/dLHigh Triglyceride: 200-499 mg/dLVery High Triglyceride: greater than or equal to 5OO mg/dL Cholesterol 169 <200 mg/dL [facility] Comment:Desirable Cholestero l: less than 200 mg/dLBorderline High Cholesterol: 200-239 mg/dLHigh Cholesterol: greater than 239 mg/dL LDL Cholesterol Calculated 82 <100 mg/dL [facility] Comment:Desirable LDL: less than 100 mg/dLNear Optimal/Above Optimal LDL: 110- 129 mg/dLBorderline High LDL: 130-159 mg/dLHigh LDL: 160-189 mg/dLVery High LDL: greater than or equal to 190 mg/dL HDL Cholesterol 62 >40 mg/dL [facility] Comment:Desirable HDL: great er than 40 mg/dL Note: This HDL assay may give artificially low results in patients with liver disease. Blood 11/08/2023 11/08/2023 Iqra Nelson MD LAB BLOOD ORDERABLES Fin al Result [facility] [address] [place] [phone] [phone] * HPV mRNA E6/E7 w/Reflex to HPV Genotypes 16, 18/45 (05/31/2023 1:12 PM EDT) HPV nRNA E6/E7 Not Detected Not Detected [facility] Comment:Methodology: Transcr iption-Mediated AmplificationThis assay detects E6/E7 viral messenger RNA (mRNA) from 14high-risk HPV types (16,18,31,33,35,39,45,51,52,56,58,59,66,68).Cervical sources are required for HPV testing.If a vaginal source from a patient who has had atotal hysterectomy with removal of cervix wassubmitted, please contact the testing laboratoryfor alternative testing options.For additional information, please refer tohttp://education.[employer]/faq/YES669s4(This link if provided for information/educational purposes only.)THIS TEST WAS PERFORMED AT:[employer] [place] [phone] HARRISON MD HPV mRNA E6/E7 TNP [facility] HPV 16 RNA [facility] HPV 18/45 RNA [facility] 05/31/2023 1:12 PM EDT 06/01/2023 9:00 AM EDT [facility] External Provider LAB CYT OLOGY ORDERABLES Final Result [facility] [address] [place] [address] [phone] * Pap Smear (05/31/2023 1:12 PM EDT) 05/31/2023 1:12 PM EDT 06/01/2023 9:00 AM EDT [facility] - 06/12/2023 1:57 PM EDT ----- ------- Name: Yoselin Rodríguez ?Age/Sex: 62/F ? : 1960 Unit#: [id number] ?? Attend Dr: Ale Francisco CNM ?Re05/31/23 ?Status: DEP REF ? Location: HO.LNP ?Disch: ? ----- ------- SPEC : [id number] ?RECD: 06/01/23-899 ? STATUS: ??SOUT ? REQ NUM: [id number] ? AGATHA: 05/31/23-1311 ? SUBM DR: Ale Francisco CNM ? ENTERED: ??06/01/23-2 ?SP TYPE: Pap Smr ?OTHR DR: Iqra Nelson MD ? ORDERED: ??Pap Smear ? Interpretation ?? Satisfactory for evaluation. ?? Negative for intraepithelial lesion or malignancy. ?? Fungal organisms consistent with Lakeshia species. ? HPV mRNA E6/E7: ?NOT DETECTED ? This assay detects E6/E7 viral messenger RNA (mRNA) from 14 high-risk HPV types (16, 18, ?? 31, 33, 35, 39, 45, 51, 52, 56, 58, 59, 66, 68) ? HPV testing performed by [email or web address], [place], [place]. ??See reference laboratory ?? portion of the EMR for entire report. ?Clinical Information LMP: No menses Previous PAP test: 07/19/21, abnormal Other history: +HPV, personal history of other infectious and parasitic diseases ? Material Received ?? ThinPrep-Cervical Copies To: ?? Iqra Nelson MD ?? [address] [facility] ?? [place] [id number] ? Ale Francisco CNM ?? [address] ?? [place] [id number] ?? [phone] ----- ------- Signed (signature on file) Yajaira Dash 06/12/23 1357 ? ----- ------- ? END OF REPORT ? [facility] External Provider LAB [facility] ORDERABLES Final Result Performing Organization Address City/State/[facility] Co de Phone Number [facility] [address] [place] [phone] * Mammography Report 1 (04/21/2021 1:15 PM EDT) Anatomical Region Laterality Modality Breast Bilateral Mammography 04/21/2021 1:15 PM EDT Narrative 04/22/2021 10:49 AM EDT Refer to the Notes tab for result details [facility] Procedure: Mammography Report 1 Procedure Note Provider, MD Antoine - 12/10/2022 Refer to the Notes tab for result details Legacy Procedure: Mammography Report 1 us Iqra Nelson MD IMG BI PROCEDURES Final Result * Hm Colonoscopy (03/04/2018 8:58 AM EDT) Colonoscopy Normal Normal Narrative Claudia Cam - 03/04/2018 8:58 AM EDT Recommended 10 year follow up Historical Provider HEALTH MAINTENANCE Final Result from Last 3 Months or Most Recently Relevant to Health Maintenance Insurance [facility] Care Teams Medical Equipment Sales Relationship Specialty Start Date End Date Johnny Casanova, RachelD [address] [place] [address] Pharmacist Internal Medicine 09/26/22 Toñito Caraballo FNP [address] [place] [address] Nurse Practitioner Family Medicine 08/08/23
--- OUTSIDE RECORDS SUMMARY | 2024-10-13 18:58 | XMS_ITS | Encounter Summary ---
Author Organization [employer] [facility] Address [address] [facility] 7t [place] [address] Care Team Providers Care Antique Furniture Repairer Name Role Phone Iqra Nelson MD Primary Care Provider + Johnny Casanova PharmD Unavailable [phone] Toñito Caraballo SKIP MINER BLASTING Unavailable Unavailable Encounter Details Date Type Department Care Team ([facility] st Contact Info) Description 09/26/2022 Orders Only [facility] MEDICINE [address] [place] [address] Johnny Casanova, PharmD [address] [place] [address] Social History Tobacco Use Types Packs/Day Years Used Date Smoking Tobacco: Never Assessed Comments Unknown Sex and Gender Information Value [...] suspected to have Coronavirus/COVID-19? No / Unsure 09/26/2022 11:01 AM EST documented as of this encounter Plan of Treatment Not on file documented as of this encounter Goals Goal Patient Goal Type Associated Problems Recent Progress Patient-Stated? Author Blood Pressure < 150/90 Blood Pressure 155/76( 024 9:13 AM EDT) No Johnny Casanova, PharmD Record your blood pressure once per day Blood Pressure No Casanova, Johnny, PharmD documented as of this encounter Visit Diagnoses Not on filedocumented in this encounter Additional Health Concerns Assessment Noted Time PHQ-9 Depression Total Score: 8 09/04/20 22 9:34 AM EST documented as of this encounter Care Teams Antique Furniture Repairer Relationship Specialty Start Date End Date Iqra Nelson MD [address] [place] [address] PCP - General Family Medicine 12/05/16 04/08/24 Johnny Casanova, PharmD [address] [place] [address] Pharmacist Internal Medicine 09/26/22 Toñito Caraballo FNP [address] [place] [address] Nurse Practitioner Family Medicine 08/08/23 documented as of this encounter
--- OUTSIDE RECORDS SUMMARY | 2024-10-13 18:58 | XMS_ITS | Encounter Summary ---
Author Organization [employer] Address [address] [facility] 7t [place] [address] Care Team Providers Care Locum Tenens Hospitalist Name Role Phone Iqra Nelson MD Primary Care Provider + Johnny Casanova PharmD Unavailable [phone] Toñito Caraballo Unavailable Unavailable Reason for Visit * Reason Comments Med Refill Encounter Details Date Type Department Care Team (Late st Contact Info) Description 12/28/2022 Refill [facility] MEDICINE [address] [place] [address] Toñito Caraballo FNP Major depressive disorder, recurrent, [...] suspected to have Coronavirus/COVID-19? No / Unsure 12/28/2022 1:30 PM EDT documented as of this encounter [...] Diagnoses Diagnosis Major depressive disorder, recurrent, moderate ([facility]) Major depressive disorder, recurrent episode, moderate documented in this encounter Additional Health Concerns Assessment Noted Time PHQ-9 Depression Total Score: 16 023 1:04 PM EDT documented as of this encounter Care Teams Locum Tenens Hospitalist Relationship Specialty Start Date End Date Iqra Nelson MD [address] [place] [address] PCP - General Family Medicine 12/05/16 04/08/24 Johnny Casanova, Ti [address] [place] [address] Pharmacist Internal Medicine 09/26/22 Toñito Caraballo FNP [address] [place] [address] Nurse Practitioner Family Medicine 08/08/23 documented as of this encounter
--- OUTSIDE RECORDS SUMMARY | 2024-10-13 18:58 | XMS_ITS | Encounter Summary ---
Author Organization [employer] Address [address] [facility] 7t [place] [address] Care Team Providers Care Bundle Shaker Name Role Phone Iqra Nelson MD Primary Care Provider + Johnny Casanova PharmD Unavailable [phone] Toñito Caraballo EXAMINING OFFICER Unavailable Unavailable Encounter Details Date Type Department Care Team ([facility] st Contact Info) Description 02/12/2024 Orders Only [facility] MEDICINE [address] [place] [address] Provider, MD Antoine Social History Tobacco Use Types Packs/Day Years [...] Associated Diagnosis Comments HM COLONOSCOPY Routine 03/04/2018 10:09 AM EDT documented in this encounter Results * Hm Colonoscopy (03/04/2018 10:09 AM EDT) us Historical Provider HEALTH MAINTENANCE Final Result documented in this encounter Visit Diagnoses Not on filedocumented in this encounter Additional Health Concerns Assessment Noted Time PHQ-9 Depression Total Score: 8 10/15/19 24 1:57 PM EST documented as of this encounter Care Teams Bundle Shaker Relationship Specialty Start Date End Date Iqra Nelson MD [address] [place] [address] PCP - General Family Medicine 12/05/16 04/08/24 Johnny Casanova PharmD [address] [place] [address] Pharmacist Internal Medicine 09/26/22 Toñito Caraballo FNP [address] [place] [address] Nurse Practitioner Family Medicine 08/08/23 documented as of this encounter
--- OUTSIDE RECORDS SUMMARY | 2024-10-13 18:58 | XMS_ITS | Encounter Summary ---
Author Organization [employer] Address [address] [facility] 7t [place] [address] Care Team Providers Care Employment Agency Manager Name Role Phone Iqra Nelson MD Primary Care Provider + Johnny Casanova PharmD Unavailable [phone] Toñito Caraballo Unavailable Unavailable Reason for Visit * Reason Comments Med Refill Encounter Details Date Type Department Care Team (Late st Contact Info) Description 07/20/2023 Refill [facility] MEDICINE [address] [place] [address] Toñito Caraballo FNP Social History Tobacco Use Types Packs/Day Years Used Date Smoking Tobacco: Never Passive Smoke Exposure: Never Smokeless Tobacco: Never Alcohol Use Standard Drinks/Week Comments Never 0 (1 standard drink = 0.6 oz pur e alcohol) Depression Answer Date Recorded Patient Health Questionnaire-9 Score 7 06/14/2023 Housing Stability Answer Date Recorded What is [...] Date Recorded Patient Health Questionnaire-2 Score 2 06/14/2023 Comments Unknown Sex and Gender Information Value [...] Assessment Noted Time PHQ-9 Depression Total Score: 7 06/14/20 23 8:57 AM EDT documented as of this encounter Care Teams Employment Agency Manager Relationship Specialty Start Date End Date Iqra Nelson MD [address] [place] [address] PCP - General Family Medicine 12/05/16 04/08/24 Johnny Casanova PharmD [address] [place] [address] Pharmacist Internal Medicine 09/26/22 Toñito Caraballo FNP [address] [place] [address] Nurse Practitioner Family Medicine 08/08/23 documented as of this encounter
== END ==
LOC: HO.CARD 14:30
PROVIDERS: PCP Internal Medicine; Visit Provider Internal Medicine Cardiovascular Disease
DX: R07.9 Chest pain, unspecified (principal)
CPT/HCPCS: 93306

== ENCOUNTER 2024-10-30 12:29 | Outpatient (REF) | payer OTHER, SELFPAY ==
--- NOTE | ~2024-10-30 | MM_ITS ---
EXAMINATION: DXA BONE DENSITY AXIAL HISTORY: Estrogen deficiency TECHNIQUE: [employer] Dual energy absorptiometry (DEXA) of the lumbar spine, total left hip, and femoral neck was performed. COMPARISON: Comparison is made with the prior examination dated 10/25/2022. FINDINGS: The bone mineral density of the lumbar spine is 0.843 with a T-score of -2.8, and a Z-score of -1.5. This represents a BMD change of 7.1% compared to the prior exam. This is statistically significant. The bone mineral density of the left total hip is 0.696 with a T-score of -2.5, and a Z-score of -1.5. This represents BMD change of 2.8% compared to the prior exam. This is not statistically significant. The bone mineral density of the left femoral neck is 0.714 with a T-score of -2.3, and a Z-score of -1.1. This represents BMD change of -0.7% compared to the prior exam. MM/XR DEXA axial skeleton IMPRESSION: Based on bone mineral density, and according to World Health Organization (WHO) criteria, the diagnosis is consistent with osteoporosis. All bone density values are in grams per centimeter squared (g/cm2). Statistically, 68% of repeat scans fall within 1 SD (+/- 0.010 g/cm2 for AP spine L1-L4) and 1 SD (+/- 0.012 g/cm2 for femur total) FRAX is a trademark of the [employer]'s [place] for Metabolic Bone Disease, a World Health Organization (WHO) Collaborating Center. Electronically signed by: Mehran Evans MD 10/30/2024 02:44 PM [facility]
--- OUTSIDE RECORDS SUMMARY | 2024-10-30 12:38 | XMS_ITS | Encounter Summary ---
Author Organization [employer] [facility] Address [address] [facility] 7t [place] [address] Care Team Providers Care Cabin Cleaner Name Role Phone Iqra Nelson MD Primary Care Provider + Johnny Casanova PharmD Unavailable [phone] Toñito Caraballo Unavailable Unavailable Reason for Visit * Reason Comments Med Refill Encounter Details Date Type Department Care Team (Late st Contact Info) Description 04/22/2023 Refill [facility] MEDICINE [address] [place] [address] Toñito Caraballo FNP Social History Tobacco Use [...] documented as of this encounter Care Teams Cabin Cleaner Relationship Specialty Start Date End Date Iqra Nelson MD [address] [place] [address] PCP - General Family Medicine 12/05/16 04/08/24 Johnny Casanova PharmD [address] [place] [address] Pharmacist Internal Medicine 09/26/22 Toñito Caraballo FNP [address] [place] [address] Nurse Practitioner Family Medicine 08/08/23 documented as of this encounter
--- OUTSIDE RECORDS SUMMARY | 2024-10-30 12:38 | XMS_ITS | Data Portability ---
Author Organization [place] [facility], Allergy Address [address] [place] [phone] Assessment Encounter Date Assessment Date Assessment LastModified by Organization Details LastModified Time 04/21/2024 04/21/2024 63-year-old female with a history of allergic rhinitis presents today for evaluation of her ears, with recurrent infections, tinnitus, and decreased hearing. There is no evidence of infection today. We reviewed aural hygiene. I recommended trying DermOtic oil as needed for the pruritus. I did career guidance counselor her that a nasal steroid such [...] nasal spray,viet pension 2023 024 [id number], [address] [place], [address], 15:52:39 DermOtic Oil 0.01 % ear drops 2023 024 [id number], [address] [place], [address], 12:15:29 Patient TargetsNo targets recorded. Patient InstructionsNo [...] Time Sensorineural hearing loss of bilateral ears [id number] Active 2023 [place]ER [place] [address] [place] [address], [place], [phone], [place] - [facility] 13:52:52 Allergic rhinitis 75885738 Active 2023 ESTELA MONROE MD [address] [place] [address], [phone], [place] - [facility] 15:50:03 Pruritic disorder 675928361 Active 2023 ESTELA MONROE MD [address] [place] [address], [phone], [facility] - [facility] 15:50:09 Pruritic disorder of skin Active 2023 ESTELA MONROE MD [address] [place] [address], [place], [phone], [facility] - [facility] 15:52:00 Problem Notes None recorded. Procedures Surgical History Date Name Laterality Status Provider Name and Address Organization Details Recorded Time 04/21/20 24 Comp Audio with Tymps (80505 & 09728) completed [facility]ER [place] [address] [facility],[address], [phone], [facility] - [facility] 04/21/2024 13:52:45 tonsillectomy completed ESTELA MONROE MD [address] [place] [address],[address], [phone], [place] - [facility] 04/28/2024 07:58:20 section completed ESTELA MONROE MD [address] [place] [address], [place], [phone], [place] [facility] 04/28/2024 07:58:28 Imaging Results Imaging Date [...] Name and Address Organization Details Recorded Time 089602 aspirin medicatio n Not available Not available Not available 04/21/2024 1191 RxNorm Sabi paige [facility] 13:44:51 742341 amoxicill in medicatio n Not available Not available Not available 04/21/2024 723 RxNorm Sabi Rudi paige [facility] 4 13:45:02 424068 cultivate d mushroom extract food Not available Not available Not available 04/21/2024 10550 17 RxNorm Sabi Rudi paige [facility] 4 13:45:09 Medications Name Sig Start [...] Updated DateTime 04/21/2024 149.86 cm 32.1 kg/m2 20621.19 g Sabi Grijalva [place] - [facility] 04/21/2024 15:22:56 Social History None recorded. [...] SNOMED-CT Code Diagnosis ICD10 Code Diagnosis Note [id number] ESTELA MONROE MD [facility] [address] [place] [address] 04/21/2024 13:35:47 04/21/2024 15:54:22 Sensorineural hearing loss of bilateral ears 245737662 H90.3 Audiologic al evaluation results: Right ear: [...] not maintain a hermetic seal}} Allergic rhinitis 834982 04 J30.9 Pruritic disorder 863398 002 L29.9 Health Concerns Section Related Observation LastModified by Organization Detai ls LastModified Time None Recorded Concern Status LastModified by Organization Details LastModified Time None Recorded Advance Directives Directive None Recorded Payers Encounter Date Sequence Insurance Name Policy Number Policy Barrow Covered Member ID Barrow Member ID Guarantor Name 04/21/2024 1 [facility] - DOS ON OR AFTER 2022 - ALF OPTIONS AND ONE CARE (MEDICARE REPLACEMENT/AD VANTAGE - PPO) Yoselin Rodríguez [id number] Yoselin Rodríguez Notes Date Note Type Note Provider Name and Address Organization Details Recorded Time 04/21/2024 text/html 63-year-old marky ahy with a history of allergies on dupixent, no recommendation for allergy shots, no nasal sprays, presents with recurrent ear infections. She was treated last year 3 times. She has had more trouble hearing on the left side and has had pruritus as well. Most recent infection was several months ago. ESTELA MONROE MD [address] [place] [address], [phone], [place] - [facility] 04/28/2024 08:02:56 OBGyn Episode No OBEpisode recorded.
--- OUTSIDE RECORDS SUMMARY | 2024-10-30 12:38 | XMS_ITS | Clinical Summary ---
Author Organization [employer] Address [address] [facility] 7t [place] [address] Care Team Providers Care Sales Trainee Name Role Phone Johnny Casanova PharmD Unavailable [phone] Toñito Caraballo LACQUER MACHINE FEEDER Unavailable Unavailable Allergies Active Allergy Reactions Criticality Noted Date Comments Amoxicillin-Pot Clavulanate Shortness of breath High 06/01/2023 Aspirin Anaphylaxis,Hives High 12/07/2016 Clavulanic Acid Angioedema 05/03/2023 Hives Codeine Hives 12/07/2016 Diclofenac Sodium-Menthol Crm Rash Low 04/04/2023 Used one time, developed rash. Used benadryl to resolve. Ibuprofen Hives 06/01/2023 Mushroom Extract Complex (Obsolete) 05/03/2023 Other Shortness of breath,Swelling,Rash ,Cough High [...] in the morning. 30 tablet 11 4 Active estradiol (Estrace) 0.1 MG/GM vaginal creamIndications [...] on 2018. Counseled to reach out to team, she declines FU in 2m Decreased hearing of left ear 06/08/2023 Assessment & Plan (06/08/2023 11:59 AM EDT): Refer to ENT Dietary counseling 06/08/2023 Assessment & Plan (06/08/2023 12:05 PM EDT): Pt is obese and has tried different diets. She wants a referral to the agricultural pilot. Discussed re weight reduction options including exercise, life style modifications, diet, referral to movement education specialist. Discussed re lower calorie intake, increase [...] retiring, so any issues or concerns, contact [facility]. All her questions were answered and [...] EST): Continue estrace cream and fu with CPC. Refill sent to pharmacy. Assessment & Plan (10/09/2022 2:44 PM EST): Most likely secondary to atrophic vaginitis. -use estrogen cream daily x2 weeks and then 3 times per week. Pneumonia due to COVID-19 virus 08/24/2022 Polyp of cervix 08/24/2022 Assessment & Plan (03/26/2023 2:56 PM EDT): s/p resection by CPC, more than a year ago, last PAP was normal refer to CPC second opinion due to persistent dyspareunia Postcoital bleeding 08/24/2022 Assessment & Plan (03/26/2023 3:04 PM EDT): See previous issue and refer to CPC Pruritus 08/24/2022 Right upper quadrant pain 08/24/2022 [...] q2wk + albuterol PRN and FU w/ measurement and verification engineer Decline flue and Covid IZ today, advised [...] FOBT 1960 HIV Screening 1960 Sigmoidoscopy 1960 Alcohol/Substance Use Screening 1972 Hepatitis C Screening 1978 DTaP/Tdap/Td Vaccines (1 - Tdap) 1979 Pneumococcal Vaccine: 50+ Years (1 of 2 - PCV) 1979 Zoster Vaccines (1 of 2) 2010 [...] ADULT Routine 12/14/2022 2 :00 PM EDT INTRAORAL - COMPLETE SERIES OF RADIOGRAPHIC IMAGES Routine 10/12/2022 1:30 PM EST COMPREHENSIVE ORAL EVALUATION - NEW OR ESTABLISHED PATIENT Routine 10/12/2022 1:30 PM EST MAMMOGRAM GENERIC Routine 04/21/2021 1:1 5 PM EDT HM COLONOSCOPY Routine 03/04/2018 8:58 AM EDT from Last 3 Months or Most Recently Relevant to Health Maintenance Results * Gram stain (10/03/2024 12:00 AM EST) 10/03/2024 10/03/2024 Comment:Sputum Narrative [facility] - 10/06/2024 9:08 AM EST Gram stain results: 4+ polys 2+ epithelial cells 3+ Gram-positive cocci 3+ Gram-positive rods 2+ Gram-negative rods Sputum Culture BAP Sputum Culture 4+ mixed upper-resp lara Haemophilus parainfluenzae B-Lac Susc (reported) Beta-lactamase not produced; suggests PEN/AMP susceptibility Quant Org ID 3+ Specimen Source: Sputum us Generic External Data Provider LAB MICROBIOLOGY - GENERAL ORDERABLES Final Result [facility] [address] [place] [phone] * Lipid Panel with Reflex to Direct LDL (11/08/2023 12:00 AM EST) Triglycerides 128 <150 mg/dL [facility] Comment:Desirable Triglyceri de: less than 150 mg/dLBorderline High Triglyceride 150-199 mg/dLHigh Triglyceride: 200-499 mg/dLVery High Triglyceride: greater than or equal to 5OO mg/dL Cholesterol 169 <200 mg/dL [facility] Comment:Desirable Cholestero l: less than 200 mg/dLBorderline High Cholesterol: 200-239 mg/dLHigh Cholesterol: greater than 239 mg/dL LDL Cholesterol Calculated 82 <100 mg/dL [facility] Comment:Desirable LDL: less than 100 mg/dLNear Optimal/Above Optimal LDL: 110- 129 mg/dLBorderline High LDL: 130-159 mg/dLHigh LDL: 160-189 mg/dLVery High LDL: greater than or equal to 190 mg/dL HDL Cholesterol 62 >40 mg/dL [facility] Comment:Desirable HDL: great er than 40 mg/dL Note: This HDL assay may give artificially low results in patients with liver disease. Blood 11/08/2023 11/08/2023 Iqra Nelson MD LAB BLOOD ORDERABLES Fin al Result [facility] [address] [place] [address] [phone] * HPV mRNA E6/E7 w/Reflex to HPV Genotypes 16, 18/45 (05/31/2023 1:12 PM EDT) HPV nRNA E6/E7 Not Detected Not Detected [facility] Comment:Methodology: Transcr iption-Mediated AmplificationThis assay detects E6/E7 viral messenger RNA (mRNA) from 14high-risk HPV types (16,18,31,33,35,39,45,51,52,56,58,59,66,68).Cervical sources are required for HPV testing.If a vaginal source from a patient who has had atotal hysterectomy with removal of cervix wassubmitted, please contact the testing laboratoryfor alternative testing options.For additional information, please refer tohttp://education.[employer]/faq/VDG230z4(This link if provided for information/educational purposes only.)THIS TEST WAS PERFORMED AT:[employer] [place] [phone] HARRISON MD HPV mRNA E6/E7 [facility] HPV 16 RNA [facility] HPV 18/45 RNA [facility] 05/31/2023 1:12 PM EDT 06/01/2023 9:00 AM EDT us [facility] External Provider LAB CYT OLOGY ORDERABLES Final Result [facility] [address] [place] [address] [phone] * Pap Smear (05/31/2023 1:12 PM EDT) 05/31/2023 1:12 PM EDT 06/01/2023 9:00 AM EDT Narrative [facility] - 06/12/2023 1:57 PM EDT ----- ------- Name: Yoselin Rodríguez ?Age/Sex: 62/F ? : 1960 Unit#: [id number] ?? Attend Dr: Ale Francisco CNM ?Re05/31/23 ?Status: DEP REF ? Location: HO.LNP ?Disch: ? ----- ------- SPEC : [id number] ?RECD: 06/01/23 ? STATUS: ??SOUT ? REQ NUM: [id number] ? AGATHA: 05/31/23-1311 ? SUBM DR: Ale Francisco CNM ? ENTERED: ??06/01/23-1102 ?SP TYPE: Pap Smr ?OTHR : Iqra Nelson MD ? ORDERED: ??Pap Smear [...] 66, 68) ? HPV testing performed by [facility], [place], [place]. ??See reference laboratory ?? portion of the EMR for entire report. ?Clinical Information LMP: No menses Previous PAP test: 07/19/21, abnormal Other history: +HPV, personal history of other infectious and parasitic diseases ? Material Received ?? ThinPrep-Cervical Copies To: ?? Iqra Nelson MD ?? [address] [facility] ?? [place] [address] ? Ale Francisco CNM ?? [address] [place] [address] [address] ?? [place] [address] ?? [phone] ----- ------- Signed (signature on file) Yajaira Adams Ekta 06/12/23 1357 ? ----- ------- ? END OF REPORT ? [facility] External Provider LAB CYT OLOGY ORDERABLES Final Result Performing Organization Address [facility]/State/[facility] Co de Phone Number [facility] [address] [place] [phone] * Mammography Report 1 (04/21/2021 1:15 PM EDT) Anatomical Region Laterality Modality Breast Bilateral Mammography 04/21/2021 1:15 PM EDT Narrative 04/22/2021 10:49 AM EDT Refer to the Notes tab for result details [facility] Procedure: Mammography Report 1 Procedure Note Provider, MD Antoine - 12/10/2022 Refer to the Notes tab for result details [facility] Procedure: Mammography Report 1 Iqra Nelson MD IMG BI PROCEDURES Final Result * Hm Colonoscopy (03/04/2018 8:58 AM EDT) Colonoscopy Normal Normal Narrative Claudia Cam - 03/04/2018 8:58 AM EDT Recommended 10 year follow up Antoine Provider HEALTH MAINTENANCE Final Result from Last 3 Months or Most Recently Relevant to Health Maintenance Insurance [facility] - ONE CARE Care Teams Sales Trainee Relationship Specialty Start Date End Date Johnny Casanova, Ti [address] [place], [place] Pharmacist Internal Medicine 09/26/22 Toñito Caraballo FNP [address] [place], [place] Nurse Practitioner Family Medicine 08/08/23
--- OUTSIDE RECORDS SUMMARY | 2024-10-30 12:38 | XMS_ITS | Encounter Summary ---
Author Organization [employer] Address [address] [facility] 7t [place] [address] Care Team Providers Care Instructional Support Assistant Name Role Phone Iqra Nelson MD Primary Care Provider + Johnny Casanova PharmD Unavailable [phone] Toñito Caraballo MUTUEL TELLER Unavailable Unavailable Encounter Details Date Type Department Care Team ([facility] st Contact Info) Description 02/12/2024 Orders Only [facility] MEDICINE [address] [place] [address] Provider, MD Antoine Social History Tobacco Use [...] documented as of this encounter Care Teams Instructional Support Assistant Relationship Specialty Start Date End Date Iqra Nelson MD [address] [place] [address] PCP - General Family Medicine 12/05/16 04/08/24 Johnny Casanova PharmD [address] [place] [phone] Pharmacist Internal Medicine 09/26/22 Toñito Caraballo FNP [address] [place] [address] Nurse Practitioner Family Medicine 08/08/23 documented as of this encounter
--- OUTSIDE RECORDS SUMMARY | 2024-10-30 12:38 | XMS_ITS | Encounter Summary ---
Author Organization [employer] Address [address] [facility] 7t [place] [address] Care Team Providers Care Despatching And Receiving Clerk Name Role Phone Iqra Nelson MD Primary Care Provider + Johnny Casanova PharmD Unavailable [phone] Toñito Caraballo Unavailable Unavailable Reason for Visit * Reason Onset Date Comments Med Refill Appointment 10/11/2023 LVM-Re: her apt for today as [id number] @2pm Encounter Details Date Type Department Care Team (Late st Contact Info) Description 10/11/2023 Refill [facility] MEDICINE [address] [place] [address] Toñito Caraballo FNP Social History Tobacco Use [...] documented as of this encounter Care Teams Despatching And Receiving Clerk Relationship Specialty Start Date End Date Iqra Nelson MD [address] [place] [phone] PCP - General Family Medicine 12/05/16 04/08/24 Johnny Casanova PharmD [address] [place] [phone] Pharmacist Internal Medicine 09/26/22 Toñito Caraballo FNP [address] [place] [address] Nurse Practitioner Family Medicine 08/08/23 documented as of this encounter
--- OUTSIDE RECORDS SUMMARY | 2024-10-30 12:38 | XMS_ITS | Encounter Summary ---
Author Organization [employer] [facility] Address [address] [facility] 7t [place] [address] Care Team Providers Care Sewing Teacher Name Role Phone Iqra Nelson MD Primary Care Provider + Johnny Casanova PharmD Unavailable [phone] Toñito Caraballo DIESEL PLANT OPERATOR Unavailable Unavailable Encounter Details Date Type Department Care Team ([facility] st Contact Info) Description 09/26/2022 Orders Only [facility] MEDICINE [address] [place] [address] Johnny Casanova, PharmD [address] [place] [address] Social History Tobacco Use Types Packs/Day Years [...] documented as of this encounter Care Teams Sewing Teacher Relationship Specialty Start Date End Date Iqra Nelson MD [address] [place] [address] PCP - General Family Medicine 12/05/16 04/08/24 Johnny Casanova, PharmD [address] [place] [address] Pharmacist Internal Medicine 09/26/22 Toñito Caraballo FNP [address] [place] [address] Nurse Practitioner Family Medicine 08/08/23 documented as of this encounter
--- OUTSIDE RECORDS SUMMARY | 2024-10-30 12:39 | XMS_ITS | Encounter Summary ---
Author Organization [employer] Address [address] [facility] 7t [place] [address] Care Team Providers Care Rest Room Maid Name Role Phone Iqra Nelson MD Primary Care Provider + Johnny Casanova PharmD Unavailable [phone] Toñito Caraballo Unavailable Unavailable Reason for Visit * Reason Comments Med Refill Encounter Details Date Type Department Care Team (Late st Contact Info) Description 12/28/2022 Refill [facility] MEDICINE [address] [place] [address] Toñito Caraballo FNP Major depressive disorder, recurrent, [...] Diagnoses Diagnosis Major depressive disorder, recurrent, moderate ([facility]) Major depressive disorder, recurrent episode, moderate documented in this encounter Additional Health Concerns Assessment Noted Time PHQ-9 Depression Total Score: 16 023 1:04 PM EDT documented as of this encounter Care Teams Rest Room Maid Relationship Specialty Start Date End Date Iqra Nelson MD [address] [place] [address] PCP - General Family Medicine 12/05/16 04/08/24 Johnny Casanova, Ti [address] [place] [address] Pharmacist Internal Medicine 09/26/22 Toñito Caraballo FNP [address] [place] [address] Nurse Practitioner Family Medicine 08/08/23 documented as of this encounter
--- OUTSIDE RECORDS SUMMARY | 2024-10-30 12:39 | XMS_ITS | Data Portability ---
Author Organization [employer] [facility] Address [address] [place] [address] Care Team Providers Care Remote Computer Terminal Operator Name Role Phone [facility] OTHER [facility] OTHER Assessment Encounter Date Assessment Date Assessment LastModified by Organization Details LastModified Time 05/05/2023 05/05/2023 I provided real -time medical direction via phone for this encounter, and was available for additional phone based assistance as needed. I have reviewed and agree with the Assessment and Plan as documented by the Lime Sludge Mixer Not available 05/05/2023 17:13:47 08/27/2024 08/27/2024 service [...] 2 Ag, QL IA, respiratory specimen 2023 [facility], [address] [place] [address], [phone], 19:41:18 rapid flu (A+B) 2023 [facility], [address] [place] [address], [phone], 19:41:57 Referral None recorded. Procedures None recorded. Surgeries None recorded. Imaging None recorded. Medication Orders pred[facility]one 20 mg tablet 2023 024 [id number] [address] [place] [address], [address], 4 16:22:59 prednisone 20 mg tablet 2023 024 [id number] [address] [place] [address], [address], 4 16:24:53 benzonatate 100 mg capsule 2023 024 [id number] [address] [place] [address], [address], 4 16:24:53 azithromyci n 250 mg tablet 2022 023 [id number] [address] [place] [address], [address], 3 17:11:16 Augmentin 875 mg-125 mg tablet 2022 023 [id number] [address] [place] [address], [address], 3 16:07:33 metronidazo le 500 mg tablet 2021 022 [id number] [address] [place] [address], [address], 2 18:29:57 metronidazo le 500 mg tablet 2021 022 krallo Not available 2 09:06:30 Patient TargetsNo targets recorded. Patient InstructionsNo instructions recorded. Reason for Referral None Reported. Results Created Date Observation Date Name Description Value Unit Range Abnormal Flag Note LastModifiedBy Organization Detail LastModifiedTime 08/27/20 24 08/27/2024 rapid flu (A+B) Flu negati ve Not Available Main - [facility] ed [address] [place] [address], [phone], 08/27/2024 19:14:26 08/27/20 24 08/27/2024 rapid SARS CoV 2 Ag, QL IA, respi rator y speci men rapid SARS CoV 2 Ag, QL IA, respiratory specimen negati ve Not Available Main - [facility] ed [address] [place], [address], 08/27/2024 19:14:26 Result Notes None recorded. Medical [...] Not available Not available Not available 05/05/2023 43512 RxNorm Not Available [facility] - production 4 03:47:03 3052 ibuprofen medicatio n hives Not available Not available 05/05/2023 5640 RxNorm SOB Karen Giraldo MD [address] [place] [address],[address], [place], [address], [employer] 3 17:17:13 3053 Augmentin medicatio n dyspnea Not available Not available 05/05/2023 18711 2 RxNorm Urtic aria Karen Giraldo MD [address] [place] [address],[address], [place], [address], [employer] 3 17:18:03 Medications Name Sig Start Date [...] Not Available No t Available [employer] Advisor active Not Available Not Available No t [...] 3 98 % 98 % 71 /min 27003.8 8 g 97.1 [degF] 16 /min 181 mm[Hg] 79 mm[Hg] Not Available [facility] - production 3 16:05:25 Date Recorded Respiratory rate Body temperature Oxygen saturation Oxygen saturation in Arterial blood by Pulse oximetry Heart rate Systolic blood pressure Diastolic blood pressure Provider Name and Address Organization Details Last Updated DateTime 3 12 /min 98.4 [degF] 98 % 98 % 66 /min 152 mm[Hg] 74 mm[Hg] Not Available [facility] - production 3 17:08:28 Date Recorded Body weight Provider Name an d Address Organization Details Last Updated DateTime 05/05/2023 35644.82 g Lexy Mendoza [address] [place] [address],[address], [place], [address], [place] [employer] 05/05/2023 17:09:15 Date Recorded Oxygen saturation Oxygen saturation in Arterial blood by Pulse oximetry Body weight Respiratory rate Heart rate Body temperature Systolic blood pressure Diastolic blood pressure Provider Name and Address Organization Details Last Updated DateTime 4 99 % 99 % 98752.5 36 g 16 /min 82 /min 98 [degF] 164 mm[Hg] 72 mm[Hg] Not Available [employer] 4 16:20:14 Date Recorded Body temperature Heart rate Respiratory rate Oxygen saturation Oxygen saturation in Arterial blood by Pulse oximetry Systolic blood pressure Diastolic blood pressure Provider Name and Address Organization Details Last Updated DateTime 2 98.6 [degF] 80 /min 16 /min 100 % 100 % 161 mm[Hg] 78 mm[Hg] Orlin Ruiz MD [address] [facility],[address], [place], [address] [place], [place] [employer] 2 18:30:24 Social History None recorded. Functional [...] 1109 Orlin Ruiz MD Main - [facility] [address] [place] [phone] 01/05/2022 18:15:37 06/07/2022 14:14:50 Acute pelvic pain 800902180 R10.2 Reports history of cramping after cervical polyp removal. Reports spotting, on re-assessm ent with executive marketing assistant, passing fishy-sme lling white discharge. No abdominal tenderness on executive marketing assistant examinatio n to suggest referred intra-abdo mary process. Reports symptoms are not consistent with UTI, so LE on UA likely represents inflammati on versus contaminat ion. Unable to perform pelvic examinatio n with executive marketing assistant so difficult to assess for other pelvic pathology. Would benefit from close follow-up by physician who performed the procedure (Dr. Goldsmith?? ) Will treat empiricall y with Flagyl for BV in the interim. 535[address] Andrea Thorpe MD Main - [facility] [address] [place] [phone] 04/24/2023 16:05:20 04/24/2023 23:29:29 Acute otitis media 7056727 H66.92 Patient with history of adult ear infection presents with typical symptoms of ear pain. Lime Sludge Mixer examinatio n consistent with ear infection. Will treat with augmentin. They can pick it up tonight, so did not give anything via executive marketing assistant. [id number] Karen Giraldo MD Main - [facility] [address] [place] [address] 05/05/2023 17:08:26 05/07/2023 07:15:01 Acute otitis media 5541805 H66.92 Patient reports she has had azithromyc [...] or middle ear/ inner ear fluid drain [id number] Domi Garland MD Main - [address] [address] 08/27/2024 16:20:07 08/28/2024 00:15:45 Acute exacerbation of chronic obstructive pulmonary disease 581437762 J44.1 Health Concerns Section Related Observation LastModified by Organization Detai ls LastModified Time None Recorded Concern Status LastModified by Organization Details LastModified Time None Recorded Advance Directives Directive None Recorded Payers Encounter Date Sequence Insurance Name Policy Number Policy Barrow Covered Member ID Barrow Member ID Guarantor Name 01/05/2022 1 [employer] - DOS PRIOR TO 2022 - DUAL ELIGIBLE (MEDICARE REPLACEMENT/AD VANTAGE - HMO) Yoselin Rodríguez [id number] Yoselin Rodríguez 04/24/2023 1 [employer] - DOS ON OR AFTER 2022 - DUAL ELIGIBLE - SKILLED NURSING OPTIONS AND ONE CARE (MEDICARE REPLACEMENT/AD VANTAGE - HMO) Yoselin Rodríguez [id number] Yoselin Rodríguez 05/05/2023 1 [employer] [facility] - DOS ON OR AFTER 2022 - DUAL ELIGIBLE - SKILLED NURSING OPTIONS AND ONE CARE (MEDICARE REPLACEMENT/AD VANTAGE - HMO) Yoselin Rodríguez [id number] Yoselin Rodríguez 08/27/2024 1 [employer] [facility] - DOS ON OR AFTER 2022 - DUAL ELIGIBLE - SKILLED NURSING OPTIONS AND ONE CARE (MEDICARE REPLACEMENT/AD VANTAGE - HMO) Yoselin Rodríguez [id number] Yoselin Rodríguez Notes Date Note Type Note [...] with her previous UTI. Orlin Ruiz MD [address] [place] [address],[address], [place], [address], [employer] 01/05/2022 18:31:02 04/24/2023 text/html HPI: Severe left ear ache .................... .................... .................... .................... .................... .................... .................... . [facility] Nursing Assessment: Comments: [facility] triage nurse calling on behalf of member with request for MIH visit for complaints of outer ear discomfort for 3 days Aware MIH visit does not include inner ear eval. [facility] unsure fever/chills Verify member name/- Andrea Thorpe MD [address] [facility],[address], [place], [address], [employer] 04/24/2023 16:07:52 05/05/2023 text/html HPI: mbr with know ear infection for two weeks/nasal congestion/moderate pain, recent ED visit ordered Fluconazole, mbr looking for oral antibiotics, requesting MIH. Protocol Used: Ear - Discharge Protocol-Based Disposition: Consider [facility], [facility] Community Clinician, or PCP [...] .................... .................... .................... .................... .................... .................... ........... Lime Sludge Mixer Note From Estrada Jain: Dispatched to the [...] Patient noted to have a steady gait. [facility] contacted to discuss patient presentation, complaints, and clinical findings. [facility] orders Azythromycin 500mg PO be given to [...] .................... . Disposition: Fulfilled Karen Giraldo MD [address] [place] [address],[address], [place], [address], [employer] 05/05/2023 22:29:41 08/27/2024 text/html HPI: Member calling [...] any additional information to process this visit. Lime Sludge Mixer Organization Information for Shantanu Olson [employer] Legal Name: [facility] Address: [address] [place] [address], Engagement Lead: Zachary Heredia MD CLIA No.: [id number] [employer]ime [employer] Mixer POC Test Results from Shantanu Olson Rapid COVID antigen (16:14:44) COVID: - Attachments uploaded as part of this test result can be found under Documents section. Rapid influenza antigen (16:14:45) Flu: - Attachments uploaded as part of this test result can be found under Documents section. .................... .................... .................... .................... .................... .................... .................... . Lime Sludge Mixer Note From Shantanu Olson: Pt co dry [...] clear bilaterally, Covid and flu swab neg. [facility] Dada contacted and 20mg prednisone given PO, right meds, dose, date and route. RX called in for prednisone and benzonatate and continue with nebulizer treatments.. Pt education on signs indicating the ER. Pt advised to continue with waiter/waitress second class appt. Pt advised to follow up with PCP. .................... .................... .................... .................... .................... .................... .................... . [facility] Consulted: Domi Garland .................... .................... .................... .................... .................... .................... .................... . Disposition: Fulfilled Domi Garland MD [address] [facility],[address] [facility], [place], [address], [email or web address] 08/27/2024 19:14:58 OBGyn Episode No OBEpisode recorded.
--- OUTSIDE RECORDS SUMMARY | 2024-10-30 12:39 | XMS_ITS | Encounter Summary ---
Author Organization [employer] Address [address] [facility] 7[address] [place] [address] Care Team Providers Care Motor Vehicle Compliance Analyst Name Role Phone Johnny Casanova PharmD Unavailable [phone] Toñito Caraballo SHANK MAKER Unavailable Unavailable Encounter Details Date Type Department Care Team ([facility] Contact Info) Description 10/03/2024 Orders Only GENERIC [...] 12:00 AM EST) 10/03/2024 10/03/2024 Comment:Sputum Narrative [facility] - 10/06/2024 9:08 AM EST Gram stain results: 4+ polys 2+ epithelial cells 3+ Gram-positive cocci 3+ Gram-positive rods 2+ Gram-negative rods Sputum Culture BAP Sputum Culture 4+ mixed upper-resp lara Haemophilus parainfluenzae B-Lac Susc (reported) Beta-lactamase not produced; suggests PEN/AMP susceptibility Quant Org ID 3+ Specimen Source: Sputum us Generic External Data Provider LAB MICROBIOLOGY - GENERAL ORDERABLES Final Result [facility] [address] [place] [address] [phone] documented in this encounter Visit Diagnoses Not on filedocumented in this encounter Additional Health Concerns Assessment Noted Time PHQ-9 Depression Total Score: 9 03/24/20 24 9:50 AM EDT documented as of this encounter Care Teams Motor Vehicle Compliance Analyst Relationship Specialty Start Date End Date Johnny Casanova PharmD [address] [place] [address] Pharmacist Internal Medicine 09/26/22 Toñito aCraballo FNP [address] [place] [address] Nurse Practitioner Family Medicine 08/08/23 documented as of this encounter
--- OUTSIDE RECORDS SUMMARY | 2024-10-30 12:39 | XMS_ITS | Encounter Summary ---
Author Organization [employer] [facility] Address [address] [facility] 7t [place] [address] Care Team Providers Care Security Guard Supervisor Name Role Phone Iqra Nelson MD Primary Care Provider + Johnny Casanova PharmD Unavailable [phone] Toñito Caraballo Unavailable Unavailable Reason for Visit * Reason Comments Med Refill Encounter Details Date Type Department Care Team ([facility] st Contact Info) Description 02/21/2023 Refill [facility] MEDICINE [address] [place] [address] Toñito Caraballo FNP Social History Tobacco Use [...] documented as of this encounter Care Teams Security Guard Supervisor Relationship Specialty Start Date End Date Iqra Nelson MD [address] [place] [address] PCP - General Family Medicine 12/05/16 04/08/24 Johnny Casanova PharmD [address] [place] [address] Pharmacist Internal Medicine 09/26/22 Toñito Caraballo FNP [address] [place] [address] Nurse Practitioner Family Medicine 08/08/23 documented as of this encounter
--- OUTSIDE RECORDS SUMMARY | 2024-10-30 12:39 | XMS_ITS | Encounter Summary ---
Author Organization [employer] Address [address] [facility] 7t [place] [address] Care Team Providers Care Lumber Piler Operator Name Role Phone Iqra Nelson MD Primary Care Provider + Johnny Casanova PharmD Unavailable [phone] Toñito Caraballo Unavailable Unavailable Reason for Visit * Reason Comments Med Refill Encounter Details Date Type Department Care Team (Late st Contact Info) Description 02/26/2023 Refill [facility] MEDICINE [address] [place] [address] Toñito Caraballo FNP Major depressive disorder, recurrent, [...] Diagnoses Diagnosis Major depressive disorder, recurrent, moderate ([facility]) Major depressive disorder, recurrent episode, moderate documented in this encounter Additional Health Concerns Assessment Noted Time PHQ-9 Depression Total Score: 10 023 3:45 PM EDT documented as of this encounter Care Teams Lumber Piler Operator Relationship Specialty Start Date End Date Iqra Nelson MD [address] [place] [address] PCP - General Family Medicine 12/05/16 04/08/24 Johnny Casanova, RachelD [address] [place] [address] Pharmacist Internal Medicine 09/26/22 Toñito Caraballo FNP [address] [place] [address] Nurse Practitioner Family Medicine 08/08/23 documented as of this encounter
--- OUTSIDE RECORDS SUMMARY | 2024-10-30 12:39 | XMS_ITS | Encounter Summary ---
Author Organization [employer] Address [address] [facility] 7t [place] [address] Care Team Providers Care Django Developer Name Role Phone Iqra Nelson MD Primary Care Provider + Johnny Casanova PharmD Unavailable [phone] Toñito Caraballo Unavailable Unavailable Reason for Visit * Reason Comments Med Refill Encounter Details Date Type Department Care Team (Late st Contact Info) Description 07/20/2023 Refill [facility] MEDICINE [address] [place] [address] Toñito Caraballo FNP Social History Tobacco Use [...] documented as of this encounter Care Teams Django Developer Relationship Specialty Start Date End Date Iqra Nelson MD [address] [place] [address] PCP - General Family Medicine 12/05/16 04/08/24 Johnny Casanova PharmD [address] [place] [address] Pharmacist Internal Medicine 09/26/22 Toñito Caraballo FNP [address] [place] [address] Nurse Practitioner Family Medicine 08/08/23 documented as of this encounter
--- OUTSIDE RECORDS SUMMARY | 2024-10-30 12:39 | XMS_ITS | Encounter Summary ---
Author Organization [employer] [facility] Address [address] [facility] 7t [place] [address] Care Team Providers Care Dewer Name Role Phone Iqra Nelson MD Primary Care Provider + Johnny Casanova PharmD Unavailable [phone] Toñito Caraballo GREEN JOBS TRAINER Unavailable Unavailable Encounter Details Date Type Department Care Team ([facility] st Contact Info) Description 10/10/[address] [facility] MEDICINE [address] [place], [place] [phone] Iqra Nelson MD [address] [place], [place] [phone] Vitamin D deficiency (Primary Dx); Senile osteoporosis [...] documented as of this encounter Care Teams Dewer Relationship Specialty Start Date End Date Iqra Nelson MD [address] [place] [address] PCP - General Family Medicine 12/05/16 04/08/24 Johnny Casanova, Ti [address] [place] [address] Pharmacist Internal Medicine 09/26/22 Toñito Caraballo FNP [address] [place] [address] Nurse Practitioner Family Medicine 08/08/23 documented as of this encounter
--- OUTSIDE RECORDS SUMMARY | 2024-10-30 12:39 | XMS_ITS | Encounter Summary ---
Author Organization [employer] [facility] Address [address] [facility] 7t [place] [address] Care Team Providers Care Inside Sales Lead Name Role Phone Iqra Nelson MD Primary Care Provider + Johnny Casanova PharmD Unavailable [phone] Toñito Caraballo SCHOOL CHILDCARE ATTENDANT Unavailable Unavailable Encounter Details Date Type Department Care Team ([facility] st Contact Info) Description 03/08/2023 Abstract [facility] MEDICINE [address] [place] [address] Iqra Nelson MD [address] [place] [address] Social History Tobacco Use Types Packs/Day Years [...] documented as of this encounter Care Teams Inside Sales Lead Relationship Specialty Start Date End Date Iqra Nelson MD [address] [place] [address] PCP - General Family Medicine 12/05/16 04/08/24 Johnny Casanova, RachelD [address] [place] [address] Pharmacist Internal Medicine 09/26/22 Toñito Caraballo FNP [address] [place] [address] Nurse Practitioner Family Medicine 08/08/23 documented as of this encounter
== END 2024-10-30 12:30 | disposition home or self-care (01) ==
LOC: HO.MAMMO 12:29
PROVIDERS: PCP Internal Medicine; Visit Provider Student in an Organized Health Care Education/Training Program
DX: M81.0 Age-related osteoporosis without current pathological fracture (principal)
CPT/HCPCS: 77080

== ENCOUNTER → 2024-10-30 13:00 | Outpatient (BNV) | payer OTHER, SELFPAY | PROVIDERS: PCP Internal Medicine; Visit Provider Radiology Diagnostic Radiology | DX: M81.0 Age-related osteoporosis without current pathological fracture (principal); E28.39 Other primary ovarian failure | CPT/HCPCS: 77080 ==

== ENCOUNTER → 2024-12-22 09:07 | Outpatient (REF) | payer OTHER, SELFPAY ==
--- NOTE | ~2024-12-22 | NM_ITS ---
Lexiscan Myocardial perfusion study Indication: Chest pain to evaluate for myocardial ischemia Technique: The patient was brought in for a Lexiscan perfusion study on 12/22/2024 and was injected 0.4 mg of Lexiscan intravenously. Within a minute of this injection 25 mCi of sestamibi was given intravenously. Images were obtained using the SPECT gamma camera interlaced with the gating device. Images were obtained in supine position. Resting perfusion study was performed on 12/23/2024. Patient was administered 25 mCi of sestamibi intravenously at rest. Images were then obtained in supine position. Images obtained with and without CT attenuation. Total DLP 106 mGy-cm. Images were processed with the software and compared side to side in short axis, horizontal long axis and vertical long axis views. Findings: The stress perfusion study showed nonattenuated images show minimal thinning of the distal lateral wall of the LV myocardium. Remainder of the LV myocardium is normally perfused. Attenuated corrected images show normal uptake of radiotracer in all segments of the LV myocardium. The gated study shows normal LV systolic function with calculated LVEF of 74%. LV cavity is normal in size. The gated study shows normal systolic wall thickening and contraction of segments. Resting study shows no change in perfusion pattern compared to stress perfusion study. Gating at rest reveals normal systolic wall motion with ejection fraction at 59%. The findings are consistent with normal myocardial perfusion. NM/NM fatou perf SPECT rest & str Impression: 1. Myocardial perfusion imaging study shows normal myocardial perfusion 2. Gated LVEF is 74% 3. Transient ischemic dilatation not present Nondiagnostic changes on EKG. Electronically signed by: Efren Rausch MD 12/23/2024 02:39 PM EDT
--- NOTE | 2024-12-22 09:09 | CA_ITS ---
Acquisition Time: 2024-12-22 09:34:47 Total Exercise Time: 00:02:00 Test Indications: Dyspnea CP Medications: SEE H&P Protocol: LEXISCAN Max HR: 112 BPM 71% of Pred: 156 BPM Max BP: 144/82 mmHG Max Work Load: 1.0 METS Pharmacological stress test with Lexiscan while pt moves her legs in the chair, with reports of SOB, dizziness, and palpitations, without any arrythmias, with normotensive response to injection. Nondiagnostic EKG for ischemia. In recovery, pt treated with IVP Aminophylline 75 mg to reverse Lexiscan after which pt feeling back to baseline. Nuclear images pending. Test reviewed with Dr. Jackson. Referred By: Efren Rausch Electronically Signed By: Wilbert Cole
--- OUTSIDE RECORDS SUMMARY | 2024-12-22 10:06 | XMS_ITS | Encounter Summary ---
Author Organization [employer] Address [address] [facility] 7t [place] [address] Care Team Providers Care Tile Setter Supervisor Name Role Phone Iqra Nelson MD Primary Care Provider + Johnny Casanova PharmD Unavailable [phone] Toñito Caraballo ANKLE PATCH MOLDER Unavailable Unavailable Encounter Details Date Type Department Care Team ([facility] st Contact Info) Description 02/12/2024 Orders Only [facility] MEDICINE [address] [place] [address] Provider, MD Antoine Social History Tobacco Use [...] documented as of this encounter Care Teams Tile Setter Supervisor Relationship Specialty Start Date End Date Iqra Nelson MD [address] [place] [address] PCP - General Family Medicine 12/05/16 04/08/24 Johnny Casanova PharmD [address] [place] [address] Pharmacist Internal Medicine 09/26/22 Toñito Caraballo FNP [address] [place] [address] Nurse Practitioner Family Medicine 08/08/23 documented as of this encounter
--- OUTSIDE RECORDS SUMMARY | 2024-12-22 10:06 | XMS_ITS | Encounter Summary ---
Author Organization [employer] [facility] Address [address] [facility] 7t [place] [address] Care Team Providers Care Intake Clinician Name Role Phone Iqra Nelson MD Primary Care Provider + Johnny Casanova PharmD Unavailable [phone] Toñito Caraballo Unavailable Unavailable Reason for Visit * Reason Comments Med Refill Encounter Details Date Type Department Care Team (Late st Contact Info) Description 04/22/2023 Refill [facility] MEDICINE [address] [place] [address] Toñito Caraballo FNP Social History Tobacco Use [...] documented as of this encounter Care Teams Intake Clinician Relationship Specialty Start Date End Date Iqra Nelson MD [address] [place] [address] PCP - General Family Medicine 12/05/16 04/08/24 Johnny Casanova PharmD [address] [place] [address] Pharmacist Internal Medicine 09/26/22 Toñito Caraballo FNP [address] [place] [address] Nurse Practitioner Family Medicine 08/08/23 documented as of this encounter
--- OUTSIDE RECORDS SUMMARY | 2024-12-22 10:06 | XMS_ITS | Encounter Summary ---
Author Organization [employer] [facility] Address [address] [facility] 7t [place] [address] Care Team Providers Care Irrigator Overhead Name Role Phone Iqra Nelson MD Primary Care Provider + Johnny Casanova PharmD Unavailable [phone] Toñito Caraballo HAIR CUTTER Unavailable Unavailable Encounter Details Date Type Department Care Team ([facility] st Contact Info) Description 09/26/2022 Orders Only [facility] MEDICINE [address] [place] [address] Johnny Casanova, PharmD [address] [place] [address] Social History Tobacco Use Types Packs/Day Years [...] documented as of this encounter Care Teams Irrigator Overhead Relationship Specialty Start Date End Date Iqra Nelson MD [address] [place] [address] PCP - General Family Medicine 12/05/16 04/08/24 Johnny Casanova, PharmD [address] [place] [address] Pharmacist Internal Medicine 09/26/22 Toñito Caraballo FNP [address] [place] [address] Nurse Practitioner Family Medicine 08/08/23 documented as of this encounter
--- OUTSIDE RECORDS SUMMARY | 2024-12-22 10:06 | XMS_ITS | Data Portability ---
Author Organization [employer] [facility] [place] [facility] Address [address] [place] [phone] Care Team Providers Care Asphalt Plant Operator Name Role Phone [facility] OTHER [facility] OTHER Assessment Encounter Date Assessment Date Assessment LastModified by Organization Details LastModified Time 05/05/2023 05/05/2023 I provided real -time medical direction via phone for this encounter, and was available for additional phone based assistance as needed. I have reviewed and agree with the Assessment and Plan as documented by the L Tacker [email or web address] Not available 05/05/2023 17:13:47 08/27/2024 08/27/2024 service [...] 2 Ag, QL IA, respiratory specimen 2023 [facility]ly [facility], [address] [place] [address], [phone] 19:41:18 rapid flu (A+B) [address], [phone] 19:41:57 Referral None recorded. Procedures None recorded. Surgeries None recorded. Imaging None recorded. Medication Orders [facility] 20 mg tablet 2023 [id number] [address] [place] [address], [address], 4 16:22:59 prednisone 20 mg tablet 2023 024 [facility] [address] [place] [address], [address], 4 16:24:53 benzonatate 100 mg capsule 2023 024 [facility] [address] [place] [address], [address], 4 16:24:53 azithromyci n 250 mg tablet 2022 023 [facility] [address] [place] [address], [address], 3 17:11:16 Augmentin 875 mg-125 mg tablet 2022 023 [facility] [address] [place] [address], [address], 3 16:07:33 metronidazo le 500 mg tablet 2021 022 [facility] [address] [place] [address], [address], 2 18:29:57 metronidazo le 500 mg tablet 2021 022 krallo Not available 2 09:06:30 Patient TargetsNo targets recorded. Patient InstructionsNo instructions recorded. Reason for Referral None Reported. Results Created Date Observation Date Name Description Value Unit Range Abnormal Flag Note LastModifiedBy Organization Detail LastModifiedTime 08/27/20 24 08/27/2024 rapid flu (A+B) Flu negati ve Not Available [facility] ed [address] [place] [address], [phone] 08/27/2024 19:14:26 08/27/20 24 08/27/2024 rapid SARS CoV 2 Ag, QL IA, respi rator y speci men rapid SARS CoV 2 Ag, QL IA, respiratory specimen negati ve Not Available Main - [facility] ed [address] [place] [address], [phone] 08/27/2024 19:14:26 Result Notes None recorded. Medical [...] Not available Not available Not available 05/05/2023 87924 RxNorm Not Available [facility] - production 4 03:47:03 3052 ibuprofen medicatio n hives Not available Not available 05/05/2023 5640 RxNorm SOB Karen Giraldo MD [address] [place] [address],[address], [place], [phone], [employer] 3 17:17:13 3053 Augmentin medicatio n dyspnea Not available Not available 05/05/2023 80472 2 RxNorm Urtic aria Karen Giraldo MD [address] [place] [address],[address], [place], [phone], [employer] 3 17:18:03 Medications Name Sig Start Date [...] Not Available No t Available [facility] Manager active Not Available Not Available No [...] 3 98 % 98 % 71 /min 52634.8 8 g 97.1 [degF] 16 /min 181 [...] Address Organization Details Last Updated DateTime 05/05/2023 53556.82 g Lexy Mendoza [address] [place] [address],[address], [place], [address], [employer] 05/05/2023 17:09:15 Date Recorded Oxygen saturation Oxygen saturation in Arterial blood by Pulse oximetry Body weight Respiratory rate Heart rate Body temperature Systolic blood pressure Diastolic blood pressure Provider Name and Address Organization Details Last Updated DateTime 4 99 % 99 % 10254.5 36 g 16 /min 82 /min 98 [degF] 164 mm[Hg] 72 mm[Hg] Not Available [facility] [employer] 4 16:20:14 Date Recorded Body temperature Heart rate Respiratory rate Oxygen saturation Oxygen saturation in Arterial blood by Pulse oximetry Systolic blood pressure Diastolic blood pressure Provider Name and Address Organization Details Last Updated DateTime 2 98.6 [degF] 80 /min 16 /min 100 % 100 % 161 mm[Hg] 78 mm[Hg] Orlin uRiz MD [address] [facility],[address], [place], [phone], [employer] 2 18:30:24 Social History None recorded. Functional [...] 1109 Orlin Ruiz MD Main - [facility] [address] [place] [phone] 01/05/2022 18:15:37 06/07/2022 14:14:50 Acute pelvic pain 253593205 R10.2 Reports history of cramping after cervical polyp removal. Reports spotting, on re-assessm ent with hitch technician, passing fishy-sme lling white discharge. No abdominal tenderness on hitch technician examinatio n to suggest referred intra-abdo mary process. Reports symptoms are not consistent with UTI, so LE on UA likely represents inflammati on versus contaminat ion. Unable to perform pelvic examinatio n with hitch technician so difficult to assess for other pelvic pathology. Would benefit from close follow-up by physician who performed the procedure (Dr. Goldsmith?? ) Will treat empiricall y with Flagyl for BV in the interim. [id number] Andrea Thorpe MD Main - [facility] [address] [place] [phone] 04/24/2023 16:05:20 04/24/2023 23:29:29 Acute otitis media 2960725 H66.92 Patient with history of adult ear infection presents with typical symptoms of ear pain. L Tacker examinatio n consistent with ear infection. Will treat with augmentin. They can pick it up tonight, so did not give anything via hitch technician. [id number] Karen Giraldo MD Main - [facility] [address] [place] [phone] 05/05/2023 17:08:26 05/07/2023 07:15:01 Acute otitis media 8824883 H66.92 Patient reports she has had azithromyc [...] or middle ear/ inner ear fluid drain [id number] Domi Garland MD [facility] [address] [place] [phone] 08/27/2024 16:20:07 08/28/2024 00:15:45 Acute exacerbation of chronic obstructive pulmonary disease 918217261 J44.1 Health Concerns Section Related Observation LastModified by Organization Detai ls LastModified Time None Recorded Concern Status LastModified by Organization Details LastModified Time None Recorded Advance Directives Directive None Recorded Payers Encounter Date Sequence Insurance Name Policy Number Policy Barrow Covered Member ID Barrow Member ID Guarantor Name 01/05/2022 1 [facility] - DOS PRIOR TO 2022 - DUAL ELIGIBLE (MEDICARE REPLACEMENT/AD VANTAGE - HMO) Yoselin Rodríguez [id number] Yoselin Rodríguez 04/24/2023 1 [employer] CARE [employer] - DOS ON OR AFTER 2022 - DUAL ELIGIBLE - CUSTODIAL OPTIONS AND ONE CARE (MEDICARE REPLACEMENT/AD VANTAGE - HMO) Yoselin Rodríguez [id number] Yoselin Rodríguez 05/05/2023 1 [employer] CARE [employer] - DOS ON OR AFTER 2022 - DUAL ELIGIBLE - CUSTODIAL OPTIONS AND ONE CARE (MEDICARE REPLACEMENT/AD VANTAGE - HMO) Yoselin Rodríguez [id number] Yoselin Rodríguez 08/27/2024 1 [facility] - DOS ON OR AFTER 2022 - DUAL ELIGIBLE - CUSTODIAL OPTIONS AND ONE CARE (MEDICARE REPLACEMENT/AD VANTAGE - HMO) Yoselin Rodríguez [id number] Yoselin Rodríguez Notes Date Note Type Note [...] with her previous UTI. Orlin Ruiz MD [address] [place] [address],[address], [place], [phone], [employer] [facility] 01/05/2022 18:31:02 04/24/2023 text/html HPI: Severe left ear ache .................... .................... .................... .................... .................... .................... .................... . CRC Nursing Assessment: Comments: [facility] triage nurse calling on behalf of member with request for MIH visit for complaints of outer ear discomfort for 3 days Aware MIH visit does not include inner ear eval. Request instED visit to eval unsure fever/chills Verify member name/- Andrea Thorpe MD [address] [place] [address],[address] [facility], [place], [phone] [employer] 04/24/2023 16:07:52 05/05/2023 text/html HPI: mbr with know ear infection for two weeks/nasal congestion/moderate pain, recent ED visit ordered Fluconazole, mbr looking for oral antibiotics, requesting MIH. Protocol Used: Ear - Discharge Protocol-Based Disposition: Consider instED, [facility] Community Clinician, or PCP visit within [...] .................... .................... .................... .................... .................... .................... ........... L Tacker Note From Estrada Jain: Dispatched to the [...] Patient noted to have a steady gait. [facility] contacted to discuss patient presentation, complaints, and clinical findings. [facility] orders Azythromycin 500mg PO be given to [...] .................... . Disposition: Fulfilled Karen Giraldo MD [address] [place] [address],[address], [place], [phone], [employer] 05/05/2023 22:29:41 08/27/2024 text/html HPI: Member calling [...] any additional information to process this visit. L Tacker Organization Information for Shantanu Olson [employer] Legal Name: [facility] Address: [address] [place] [address] Senior Speech Pathologist: Zachary Heredia MD [place] No.: [id number] L Tacker POC Test Results from Shantanu Olson [employer] RAHEEL Rapid COVID antigen (16:14:44) COVID: - Attachments uploaded as part of this test result can be found under Documents section. Rapid influenza antigen (16:14:45) Flu: - Attachments uploaded as part of this test result can be found under Documents section. .................... .................... .................... .................... .................... .................... .................... . L Tacker Note From Shantanu Olson: Pt co dry [...] clear bilaterally, Covid and flu swab neg. [facility] Dada contacted and 20mg prednisone given PO, right meds, dose, date and route. RX called in for prednisone and benzonatate and continue with nebulizer treatments.. Pt education on signs indicating the ER. Pt advised to continue with wrapper stitcher appt. Pt advised to follow up with PCP. .................... .................... .................... .................... .................... .................... .................... . [facility] Consulted: Domi Garland .................... .................... .................... .................... .................... .................... .................... . Disposition: Viviana Garland MD [address] [facility],[address], [place], [address], [employer] 08/27/2024 19:14:58 OBGyn Episode No OBEpisode recorded.
--- OUTSIDE RECORDS SUMMARY | 2024-12-22 10:06 | XMS_ITS | Encounter Summary ---
Author Organization [employer] Address [address] [facility] [address]t [place] [address] Care Team Providers Care Molybdenum Steamer Operator Name Role Phone Iqra Nelson MD Primary Care Provider + Johnny Casanova PharmD Unavailable [phone] Toñito Caraballo Unavailable Unavailable Reason for Visit * Reason Onset Date Comments Med Refill Appointment 10/11/2023 LVM-Re: her apt for today as [id number] @2pm Encounter Details Date Type Department Care Team (Late st Contact Info) Description 10/11/2023 Refill [facility] MEDICINE [address] [place] [address] Toñito Caraballo FNP Social History Tobacco Use [...] documented as of this encounter Care Teams Molybdenum Steamer Operator Relationship Specialty Start Date End Date Iqra Nelson MD [address] [place] [address] PCP - General Family Medicine 12/05/16 04/08/24 Johnny Csaanova PharmD [address] [place] [address] Pharmacist Internal Medicine 09/26/22 Toñito Caraballo FNP [address] [place] [address] Nurse Practitioner Family Medicine 08/08/23 documented as of this encounter
--- OUTSIDE RECORDS SUMMARY | 2024-12-22 10:06 | XMS_ITS | Clinical Summary ---
Author Organization [employer] Address [address] [facility] 7t [place] [address] Care Team Providers Care Learning And Development Associate Name Role Phone Johnny Casanova PharmD Unavailable [phone] Toñito Caraballo FORM DRAFTER Unavailable Unavailable Allergies Active Allergy Reactions Criticality [...] diets. She wants a referral to the computer forensics technician. Discussed re weight reduction options including exercise, life style modifications, diet, referral to community outreach specialist. Discussed re lower calorie intake, increase [...] retiring, so any issues or concerns, contact [facility]. All her questions were answered and I [...] EST): Continue estrace cream and fu with DIRECTOR OF MECHANICAL ENGINEERING. Refill sent to pharmacy. Assessment & Plan (10/09/2022 2:44 PM EST): Most likely secondary to atrophic vaginitis. -use estrogen cream daily x2 weeks and then 3 times per week. Pneumonia due to COVID-19 virus 08/24/2022 Polyp of cervix 08/24/2022 Assessment & Plan (03/26/2023 2:56 PM EDT): s/p resection by DIRECTOR OF MECHANICAL ENGINEERING, more than a year ago, last PAP was normal refer to DIRECTOR OF MECHANICAL ENGINEERING second opinion due to persistent dyspareunia Postcoital bleeding 08/24/2022 Assessment & Plan (03/26/2023 3:04 PM EDT): See previous issue and refer to DIRECTOR OF MECHANICAL ENGINEERING Pruritus 08/24/2022 Right upper quadrant pain 08/24/2022 [...] q2wk + albuterol PRN and FU w/ security solutions architect Decline flue and Covid IZ today, advised [...] Procedure Name Priority Date/Time Associated Diagnosis Comments BD DEXA AXIAL Routine 10/30/2024 12:35 PM EST GRAM STAIN Routine 10/03/2024 12:00 AM EST [...] Recently Relevant to Health Maintenance Results * BD DEXA Axial (10/30/2024 12:35 PM EST) Anatomical Region Laterality Modality Body Radiographic Carrol ging 10/30/2024 12:3 5 PM EST Narrative 10/30/2024 2:47 PM EST ? [facility] ? [address] ?[place] [address] ? Mammography Report ? Signed ? Patient: Marcos,Ada E ?MR#: [id number] ?? [id number] ? : 1960 ?Acct:[id number] ? Age/Sex: 64 / F ?ADM Date: 10/30/ ? Loc: HO.MAMMO ? Attending Dr: Maryann Joseph MD ? Ordering Physician: Opal,Maryann MD ?Results: ? Date of Service: 10/30/ ?Follow Up: ? Procedure(s): XR DEXA axial skeleton ?? Accession Number(s): [id number] ? cc: Iqra Nelson MD; Maryann Joseph MD ? EXAMINATION: ??DXA BONE DENSITY AXIAL ? HISTORY: ??Estrogen deficiency ? TECHNIQUE: Medigus Dual energy absorptiometry (DEXA) ?? of the lumbar spine, total left hip, and femoral neck was performed. ? COMPARISON: Comparison is made with the prior examination dated ?? 10/25/2022. ? FINDINGS: ? The bone mineral density of the lumbar spine is 0.843 with a T-score of ?? -2.8, and a Z-score of -1.5. ? This represents a BMD change of 7.1% compared to the prior exam. ??This ?? is statistically significant. ? The bone mineral density of the left total hip is 0.696 with a T-score ?? of -2.5, and a Z-score of -1.5. ? This represents BMD change of 2.8% compared to the prior exam. ??This is ?? not statistically significant. ? The bone mineral density of the left femoral neck is 0.714 with a ?? T-score of -2.3, and a Z-score of -1.1. ? This represents BMD change of -0.7% compared to the prior exam. ? MM/XR DEXA axial skeleton ?? IMPRESSION: ?? Based on bone mineral density, and according to World Health ?? Organization (WHO) criteria, the diagnosis is consistent with ?? osteoporosis. ? All bone density values are in grams per centimeter squared (g/cm2). ?? Statistically, 68% of repeat scans fall within 1 SD (+/- 0.010 g/cm2 ?? for AP spine L1-L4) and 1 SD (+/- 0.012 g/cm2 for femur total) ?? FRAX is a trademark of the [employer]'s ?? [place] for Metabolic Bone Disease, a World Health Organization (WHO) ?? Collaborating Center. ? Electronically signed by: ??Mehran Evans MD ??10/30/2024 02:44 PM EST ?? RP ? Dictated By: ?Mehran Evans MD ? Signed By: ?<Electronically signed by Mehran Evans MD in OV> ?10/30/24 1444 ? DD/ 1235 ? TD/TT: 10/30/24 1255 ? Wheel Grinder: ? Procedure Note Donotuseinterpreter, Image - 10/30/2024 [facility] [address] [place] [address] Dr. [place], [place] [address] Mammography Report Signed Patient: Yoselin Rodríguez EMR#: [id number] : 1960cct:[id number] Age/Sex: 64 / FADM Date: 10/30/24 Loc: HO.MAMMO Attending Dr: Maryann Joseph MD Ordering Physician: Maryann Joseph MDResults: Date of Service: 10/30/24Follow Up: Procedure(s): XR DEXA axial skeleton Accession Number(s): [id number] cc: Iqra Nelson MD; Maryann Joseph MD EXAMINATION: DXA BONE DENSITY AXIAL HISTORY: Estrogen deficiency TECHNIQUE: Medigus Dual energy absorptiometry (DEXA) of the lumbar spine, total left hip, and femoral neck was performed. COMPARISON: Comparison is made with the prior examination dated 10/25/2022. FINDINGS: The bone mineral density of the lumbar spine is 0.843 with a T-score of -2.8, and a Z-score of -1.5. This represents a BMD change of 7.1% compared to the prior exam. This is statistically significant. The bone mineral density of the left total hip is 0.696 with a T-score of -2.5, and a Z-score of -1.5. This represents BMD change of 2.8% compared to the prior exam. This is not statistically significant. The bone mineral density of the left femoral neck is 0.714 with a T-score of -2.3, and a Z-score of -1.1. This represents BMD change of -0.7% compared to the prior exam. MM/XR DEXA axial skeleton IMPRESSION: Based on bone mineral density, and according to World Health Organization (WHO) criteria, the diagnosis is consistent with osteoporosis. All bone density values are in grams per centimeter squared (g/cm2). Statistically, 68% of repeat scans fall within 1 SD (+/- 0.010 g/cm2 for AP spine L1-L4) and 1 SD (+/- 0.012 g/cm2 for femur total) FRAX is a trademark of the [employer] [place] for Metabolic Bone Disease, a World Health Organization (WHO) Collaborating Center. Electronically signed by: Mehran Evans MD 10/30/2024 02:44 PM EST RP Dictated By: Mehran Evans MD Signed By: <Electronically signed by Mehran Evans MD in OV> 10/30/24 1444 DD/ 1235 TD/TT: 10/30/24 1255 Wheel Grinder: [facility] External Provider IMG DXA PROCEDURES Final Result * Gram stain (10/03/2024 12:00 AM EST) 10/03/2024 10/03/2024 Comment:Sputum Narrative [facility] - 10/06/2024 9:08 AM EST Gram stain results: 4+ polys 2+ epithelial cells 3+ Gram-positive cocci 3+ Gram-positive rods 2+ Gram-negative rods Sputum Culture BAP Sputum Culture 4+ mixed upper-resp lara Haemophilus parainfluenzae B-Lac Susc (reported) Beta-lactamase not produced; suggests PEN/AMP susceptibility Quant Org ID 3+ Specimen Source: Sputum Generic External Data Provider LAB MICROBIOLOGY - GENERAL ORDERABLES Final Result [facility] [address] [phone] * Lipid Panel with Reflex to Direct LDL (11/08/2023 12:00 AM EST) Triglycerides 128 <150 mg/dL [facility] Comment:Desirable Triglyceri de: less than 150 mg/dLBorderline High Triglyceride 150-199 mg/dLHigh Triglyceride: 200-499 mg/dLVery High Triglyceride: greater than or equal to 5OO mg/dL Cholesterol 169 <200 mg/dL [facility] Comment:Desirable Cholestero l: less than 200 mg/dLBorderline High Cholesterol: 200-239 mg/dLHigh Cholesterol: greater than 239 mg/dL LDL Cholesterol Calculated 82 <100 mg/dL [facility] Comment:Desirable LDL: less than 100 mg/dLNear Optimal/Above Optimal LDL: 110- 129 mg/dLBorderline High LDL: 130-159 mg/dLHigh LDL: 160-189 mg/dLVery High LDL: greater than or equal to 190 mg/dL HDL Cholesterol 62 >40 mg/dL [facility] Comment:Desirable HDL: great er than 40 mg/dL Note: This HDL assay may give artificially low results in patients with liver disease. Blood 11/08/2023 11/08/2023 us Iqra Nelson MD LAB BLOOD ORDERABLES Fin al Result [facility] [address] [place] [address] [phone] * HPV mRNA E6/E7 w/Reflex to HPV Genotypes 16, 18/45 (05/31/2023 1:12 PM EDT) HPV nRNA E6/E7 Not Detected Not Detected [facility] Comment:Methodology: Transcr iption-Mediated AmplificationThis assay detects E6/E7 viral messenger RNA (mRNA) from 14high-risk HPV types (16,18,31,33,35,39,45,51,52,56,58,59,66,68).Cervical sources are required for HPV testing.If a vaginal source from a patient who has had atotal hysterectomy with removal of cervix wassubmitted, please contact the testing laboratoryfor alternative testing options.For additional information, please refer tohttp://education.BioWizard/faq/HPE742o6(This link if provided for information/educational purposes only.)THIS TEST WAS PERFORMED AT:[facility] [place] [id number] HARRISON MD HPV mRNA E6/E7 [facility] HPV 16 RNA [facility] HPV 18/45 RNA TNP [facility] 05/31/2023 1:12 PM EDT 06/01/2023 9:00 AM EDT us [facility] External Provider LAB CYT OLOGY ORDERABLES Final Result Performing Organization Address City/State/RUST Co de Phone Number [facility] [address] [place] [address] [phone] * Pap Smear (05/31/2023 1:12 PM EDT) 05/31/2023 1:12 PM EDT 06/01/2023 9:00 AM EDT Narrative [facility] - 06/12/2023 1:57 PM EDT ----- ------- Name: Yoselin Rodríguez ?Age/Sex: 62/F ? : 1960 Unit#: [id number] ?? Attend Dr: Ale Francisco CNM ?Re05/31/23 ?Status: DEP REF ? Location: HO.LNP ?Disch: ? ----- ------- SPEC : [id number] ?RECD: 06/01/23 ? STATUS: ??SOUT ? REQ NUM: [id number] ? AGATHA: 05/31/23-1311 ? SUBM DR: NolanAle GO ? ENTERED: ??06/01/23-1101 ?SP TYPE: Pap Smr ?OTHR DR: Iqra [...] 66, 68) ? HPV testing performed by [facility], [place], [place]. ??See reference laboratory ?? portion of the EMR for entire report. ?Clinical Information LMP: No menses Previous PAP test: 07/19/21, abnormal Other history: +HPV, personal history of other infectious and parasitic diseases ? Material Received ?? ThinPrep-Cervical Copies To: ?? Iqra Nelson MD ?? [address] ?? [place] [address] ? [place]ipah[place]Ael Bellamy CNM ?? [address] [facility] ?? [place] [address] ?? [phone] ----- ------- Signed (signature on file) Yajaira Angie Dash 06/12/23 7797 ? ----- ------- ? END OF REPORT ? [facility] External Provider LAB [facility] OLOG ORDERABLES Final Result [facility] [address] [facility] [place] [address] [phone] * Mammography Report 1 (04/21/2021 1:15 [...] Most Recently Relevant to Health Maintenance Insurance [facility] - [facility] Care Teams Learning And Development Associate Relationship Specialty Start Date End Date Johnny Casanova, PharmD [address] [place] [address] Pharmacist Internal Medicine 09/26/22 Toñiot Caraballo FNP [address] [place] [address] Nurse Practitioner Family Medicine 08/08/23
--- OUTSIDE RECORDS SUMMARY | 2024-12-22 10:07 | XMS_ITS | Encounter Summary ---
Author Organization [facility] [facility] Address [address] [facility] 7t [place] [address] Care Team Providers Care Diesel Engine Mechanic Apprentice Name Role Phone Iqra Nelson MD Primary Care Provider + Johnny Casanova PharmD Unavailable [phone] Toñito Caraballo STRIP CLEANER Unavailable Unavailable Encounter Details Date Type Department Care Team ([facility] st Contact Info) Description 10/10/2022 Orders Only [facility] [address] [place], [place] [phone] Iqra eNlson MD [address] [place], [place] [phone] Vitamin D deficiency (Primary Dx); Senile osteoporosis [...] documented as of this encounter Care Teams Diesel Engine Mechanic Apprentice Relationship Specialty Start Date End Date Iqra Nelson MD [address] [place] [phone] PCP - General Family Medicine 12/05/16 04/08/24 Johnny Casanova, Ti [address] [place] [phone] Pharmacist Internal Medicine 09/26/22 Toñito Caraballo FNP [address] [place] [address] Nurse Practitioner Family Medicine 08/08/23 documented as of this encounter
--- OUTSIDE RECORDS SUMMARY | 2024-12-22 10:07 | XMS_ITS | Encounter Summary ---
Author Organization [employer] Address [address] [facility] 7t [place] [address] Care Team Providers Care Photo Mask Inspector Name Role Phone Iqra Nelson MD Primary Care Provider + Johnny Casanova PharmD Unavailable [phone] Toñito Caraballo Unavailable Unavailable Reason for Visit * Reason Comments Med Refill Encounter Details Date Type Department Care Team (Late st Contact Info) Description 07/20/2023 Refill [facility] [address] [place] [address] Toñito Caraballo FNP Social History Tobacco Use [...] documented as of this encounter Care Teams Photo Mask Inspector Relationship Specialty Start Date End Date Iqra Nelson MD [address] [place] [address] PCP - General Family Medicine 12/05/16 04/08/24 Johnny Casanova PharmD [address] [place] [address] Pharmacist Internal Medicine 09/26/22 Toñito Caraballo FNP [address] [place] [address] Nurse Practitioner Family Medicine 08/08/23 documented as of this encounter
--- OUTSIDE RECORDS SUMMARY | 2024-12-22 10:07 | XMS_ITS | Encounter Summary ---
Author Organization [employer] [facility] Address [address] [facility] 7t [place] [address] Care Team Providers Care Tin Container Straightener Name Role Phone Iqra Nelson MD Primary Care Provider + Johnny Casanova PharmD Unavailable [phone] Toñito Caraballo Unavailable Unavailable Reason for Visit * Reason Comments Med Refill Encounter Details Date Type Department Care Team (Late st Contact Info) Description 02/21/2023 Refill [facility] [address] [place] [address] Toñito Caraballo FNP Social History Tobacco Use [...] documented as of this encounter Care Teams Tin Container Straightener Relationship Specialty Start Date End Date Iqra Nelson MD [address] [place] [address] PCP - General Family Medicine 12/05/16 04/08/24 Johnny Casanova PharmD [address] [place] [address] Pharmacist Internal Medicine 09/26/22 Toñito Caraballo FNP [address] [place] [address] Nurse Practitioner Family Medicine 08/08/23 documented as of this encounter
--- OUTSIDE RECORDS SUMMARY | 2024-12-22 10:07 | XMS_ITS | Encounter Summary ---
Author Organization [employer] [facility] Address [address] [facility] 7t [place] [address] Care Team Providers Care Pilot Manager Name Role Phone Iqra Nelson MD Primary Care Provider + Johnny Casanova PharmD Unavailable [phone] Toñito Caraballo Unavailable Unavailable Reason for Visit * Reason Comments Med Refill Encounter Details Date Type Department Care Team (Late st Contact Info) Description 02/26/2023 Refill [facility] [address] [place] [address] Toñito Caraballo FNP Major depressive disorder, recurrent, [...] Diagnoses Diagnosis Major depressive disorder, recurrent, moderate ([facility]) Major depressive disorder, recurrent episode, moderate documented in this encounter Additional Health Concerns Assessment Noted Time PHQ-9 Depression Total Score: 10 023 3:45 PM EDT documented as of this encounter Care Teams Pilot Manager Relationship Specialty Start Date End Date Iqra Nelson MD [address] [place] [phone] PCP - General Family Medicine 12/05/16 04/08/24 Johnny Casanova, RachelD [address] [place] [address] Pharmacist Internal Medicine 09/26/22 Toñito Caraballo FNP [address] [place] [address] Nurse Practitioner Family Medicine 08/08/23 documented as of this encounter
--- OUTSIDE RECORDS SUMMARY | 2024-12-22 10:07 | XMS_ITS | Encounter Summary ---
Author Organization [employer] [facility] Address [address] [facility] 7t [place] [address] Care Team Providers Care Manufacturing Manager Name Role Phone Iqra Nelson MD Primary Care Provider + Johnny Casanova PharmD Unavailable [phone] Toñito Caraballo HABITAT BIOLOGIST Unavailable Unavailable Encounter Details Date Type Department Care Team ([facility] st Contact Info) Description 03/08/[address] [facility] MEDICINE [address] [place] [address] Iqra Nelson MD [address] [place] [address] Social History Tobacco Use Types Packs/Day Years [...] pressure once per day Blood Pressure No Johnyn Casanova, PharmD documented as of this encounter [...] documented as of this encounter Care Teams Manufacturing Manager Relationship Specialty Start Date End Date Iqra Nelson MD [address] [place] [address] PCP - General Family Medicine 12/05/16 04/08/24 Johnny Casanova, RachelD [address] [place] [phone] Pharmacist Internal Medicine 09/26/22 Toñito Caraballo FNP [address] [place] [address] Nurse Practitioner Family Medicine 08/08/23 documented as of this encounter
--- OUTSIDE RECORDS SUMMARY | 2024-12-22 10:07 | XMS_ITS | Encounter Summary ---
Author Organization [employer] Address [address] [facility] 7t [place] [address] Care Team Providers Care Hardboard Factory Worker Name Role Phone Iqra Nelson MD Primary Care Provider + Johnny Casanova PharmD Unavailable [phone] Toñ[place] Caraballo Unavailable Unavailable Reason for Visit * Reason Comments Med Refill Encounter Details Date Type Department Care Team (Late st Contact Info) Description 12/28/2022 Refill [facility] [address] [place] [address] Toñito Caraballo FNP Major depressive disorder, recurrent, [...] Diagnoses Diagnosis Major depressive disorder, recurrent, moderate ([facility]) Major depressive disorder, recurrent episode, moderate documented in this encounter Additional Health Concerns Assessment Noted Time PHQ-9 Depression Total Score: 16 023 1:04 PM EDT documented as of this encounter Care Teams Hardboard Factory Worker Relationship Specialty Start Date End Date Iqra Nelson MD [address] [place] [address] PCP - General Family Medicine 12/05/16 04/08/24 Johnny Casanova, Ti [address] [place] [address] Pharmacist Internal Medicine 09/26/22 Toñito Caraballo FNP [address] [place] [address] Nurse Practitioner Family Medicine 08/08/23 documented as of this encounter
== END ==
LOC: HO.CARD 09:07
PROVIDERS: PCP Internal Medicine; Visit Provider Internal Medicine Cardiovascular Disease
DX: R07.9 Chest pain, unspecified (principal)
CPT/HCPCS: 78452; 93017; A9500; J0280; J2785

== ENCOUNTER → 2024-12-22 09:09 | Outpatient (BNV) | payer OTHER, SELFPAY | PROVIDERS: PCP Internal Medicine | DX: R06.02 Shortness of breath (principal) | CPT/HCPCS: 78452; 93016; 93018 ==

== ENCOUNTER 2024-12-23 13:05 | Outpatient (AMB) | payer OTHER, SELFPAY ==
[2024-12-23 13:13] VITALS: BP 134/78; PULSE 67; O2SAT 100; BMI 34.3
--- NOTE | 2024-12-23 13:13 | A.OFFVIS_ITS ---
Vital Signs 12/23/24 13:13 Height 4 ft 10 in Weight 164 lb BMI 34.3 BP 134/78 Blood Pressure Location Rt brachial Position Sitting Pulse 67 Pulse Source Doppler Pulse Oximetry (%) 100 Oxygen Delivery Method Room Air Intake Visit Reasons: Asthma/COPD Allergies seafood Allergy (Severe, Verified 12/23/24 13:19) Anaphylaxis vancomycin [VANCOMYCIN] Allergy (Severe, Verified 12/23/24 13:19) ANAPHYLAXIS, hives aspirin [ASPIRIN] Allergy (Intermediate, Verified 12/23/24 13:19) rash, asthma codeine [CODEINE] Allergy (Mild, Verified 12/23/24 13:19) rash egg [EGGS] Allergy (Mild, Verified 12/23/24 13:19) VOMITING peanut [PEANUTS] Allergy (Mild, Verified 12/23/24 13:19) HIVES,DIARRHEA amoxicillin [From Augmentin] Allergy (Verified 12/23/24 13:19) hives, swelling, difficulty breathing clavulanic acid [From Augmentin] Allergy (Verified 12/23/24 13:19) hives, swelling mushroom Allergy (Verified 12/23/24 13:19) Rash lactose Adverse Reaction (Intermediate, Verified 12/23/24 13:19) diarrhea HPI HPI Asthma/COPD: Details: 64-year-old lady, lifetime nonsmoker, followed for severe persistent asthma, environmental allergies, and post COVID-19 syndrome.? Patient was not able to tolerate immunologic therapy for her asthma including Fasenra and Xolair, but had good response with Dupixent. She also has had significant side effects after COVID vaccines.? Patient has ran out of her Symbicort and has been using her 's. She does continue on Dupixent. Patient complains of recent several exacerbations, now resolved. [facility] Medical History Abdominal bloating Acute diarrhea Physical exam COVID-19 Pulmonary embolism Pulmonary embolism Vaginal itching Hx of human papillomavirus infection Candidiasis of mouth and esophagus Abdominal cramping Pneumonia Bile salt-induced diarrhea History of pilonidal cyst Gastritis IBS (irritable bowel syndrome) Hypertension Pre-eclampsia Irritable bowel syndrome with both constipation and diarrhea Gallstones Surgical History H/O cervical polypectomy Hx of esophagogastroduodenoscopy H/O colonoscopy History of surgical removal of pilonidal cyst S/P tonsillectomy History of section History of cholecystectomy Family History Father Heart attack GERD (gastroesophageal reflux disease) Peptic ulcer disease Mother CHF (congestive heart failure) Afib Diverticulitis History of bowel resection Hypothyroid COVID-19 Maternal Aunt Diabetes Maternal Uncle Cancer Maternal Grandmother Cancer Brother Mental health disorder Social History Household Members: Spouse Housing: Apartment Are you a primary resident care manager to a significant other at home: No Do you presently have visiting nurse or other home services: Yes (phone visits) Alcohol intake: former Patient Tobacco Use Status: Never used Tobacco e-Cigarette/Vaping Use: Never Used Second Hand Smoke Exposure: No service: No Current occupational status: retired Cognitive needs: No Hearing needs: No Vision needs: No Female Reproductive History Menstrual Age of Menarche: 10 Review of Systems Const Denies daytime sleepiness, Denies excessive sweating, Denies fatigue, Denies fever(s), Denies lethargy, Denies malaise, Denies night sweats, Denies snoring and Denies weight loss Eyes Denies blurry vision and Denies itchy eyes ENT Denies nasal congestion, Denies post nasal drip, Denies sinus pain, Denies sinus pressure and Denies other ( Thrush) Card Denies chest pain, Denies pedal edema, Denies dyspnea, Denies orthopnea and Denies paroxysmal nocturnal dyspnea Resp Reports cough, Denies hemoptysis, Denies excessive phlegm production, Denies dyspnea, Denies snoring and Denies wheezing GI Denies abdominal pain and Denies heartburn Musc Denies myalgias, Denies arthralgias and Denies joint swelling Skin/Breast Denies rash Neuro Denies memory loss and Denies seizure-like activity Psych Denies abnormal sleep pattern, Denies anxiety and Denies memory loss Endo Denies excessive sweating, Denies fatigue and Denies heat intolerance Migue/Lymph Denies easy bruising Aller/Immun Denies itchy eyes, Denies seasonal rhinorrhea and Denies wheezing Physical Exam Vital Signs: Last Vital Signs Pulse 67 12/23/24 13:13 BP 134/78 12/23/24 13:13 Pulse Ox 100 12/23/24 13:13 Oxygen Delivery Method Room Air 12/23/24 13:13 BMI result Body Mass Index 34.3 Const General: no acute distress and alert Nutritional Appearance: not obese Orientation/consciousness: Other orientation findings ( oriented) HEENT Head: Yes atraumatic Eyes General: appearance normal, both eyes and all related structures Sclerae: sclerae normal EOM: EOMs intact bilaterally Neck Neck: Yes supple Lymphatic: no lymphadenopathy noted Resp Effort & Inspection: normal respiratory effort and no use of accessory muscles Auscultation: clear to auscultation bilaterally Cardio Rate: regular rate Rhythm: regular rhythm Heart sounds: no gallops, no murmurs and no rubs Skin General skin exam: other ( warm) Extrem General: No clubbing, No cyanosis and No edema Assessment & Plan Assessment & Plan (1) Asthma: Code(s): J45.909 - Unspecified asthma, uncomplicated Category: Medical Qualifiers: Asthma severity: moderate Asthma persistence: persistent Asthma complication type: uncomplicated Qualified Code(s): J45.40 - Moderate persistent asthma, uncomplicated Plan: Suboptimal control as patient has ran out Symbicort. Restart Symbicort. Continue Dupixent/albuterol MDI/nebs. (2) Environmental allergies: Code(s): Z91.09 - Other allergy status, other than to drugs and biological substances Category: Medical Plan: Baseline controlled on Dupixent. Continue current regimen. Medications: New albuterol sulfate 90 mcg/actuation 90 mcg inhalation DAILY 1 ea 6RF albuterol sulfate 2.5 mg (3 mL) inhalation TID PRN 180 mL 6RF asthma Refilled Symbicort 160-4.5 mcg/actuation (budesonide-formoterol) 2 puffs PO BID 10.2 grams 6RF NS Coding Level of Care Code Est Pt Level 4 (04804) Diagnoses Moderate persistent asthma without complication J45.40 Asthma severity: moderate Asthma persistence: persistent Asthma complication type: uncomplicated Environmental allergies Z91.09
--- OUTSIDE RECORDS SUMMARY | 2024-12-23 15:54 | XMS_ITS | Encounter Summary ---
Author Organization [employer] Address [address] [facility] [address] [place] [address] Care Team Providers Care Copy Reader Name Role Phone Iqra Nelson MD Primary Care Provider + Johnny Casanova PharmD Unavailable [phone] Toñito Caraballo BRA[employer]ER CRAWLER TORCH Unavailable Unavailable Encounter Details Date Type Department Care Team ([facility] st Contact Info) Description 02/12/2024 Orders Only [facility] MEDICINE [address] [place] [address] Provider, MD Antoine Social History Tobacco Use [...] documented as of this encounter Care Teams Copy Reader Relationship Specialty Start Date End Date Irqa Nelson MD [address] [place] [phone] PCP - General Family Medicine 12/05/16 04/08/24 Johnny Casanova PharmD [address] [place] [phone] Pharmacist Internal Medicine 09/26/22 Toñito Caraballo FNP [address] [place] [phone] Nurse Practitioner Family Medicine 08/08/23 documented as of this encounter
--- OUTSIDE RECORDS SUMMARY | 2024-12-23 15:54 | XMS_ITS | Encounter Summary ---
Author Organization [employer] Address [address] [facility] [address] [place] [address] Care Team Providers Care Block Mason Name Role Phone Iqra Nelson MD Primary Care Provider + Johnny Casanova PharmD Unavailable [phone] Toñito Caraballo Unavailable Unavailable Reason for Visit * Reason Onset Date Comments Med Refill Appointment 10/11/2023 LVM-Re: her apt for today as [id number] @2pm Encounter Details Date Type Department Care Team (Late st Contact Info) Description 10/11/2023 Refill [facility] MEDICINE [address] [place] [address] Toñito Caraballo FNP Social History Tobacco Use [...] documented as of this encounter Care Teams Block Mason Relationship Specialty Start Date End Date Iqra Nelson MD [address] [place] [phone] PCP - General Family Medicine 12/05/16 04/08/24 Johnny Casanova PharmD [address] [place] [phone] Pharmacist Internal Medicine 09/26/22 Toñito Caraballo FNP [address] [place] [address] [phone] Nurse Practitioner Family Medicine 08/08/23 documented as of this encounter
--- OUTSIDE RECORDS SUMMARY | 2024-12-23 15:55 | XMS_ITS | Clinical Summary ---
Author Organization [employer] Address [address] [facility] [address] [place] [address] Care Team Providers Care Senior Case Manager Name Role Phone Johnny Casanova PharmD Unavailable [phone] Toñito Caraballo ASSISTANT ACCOUNT EXECUTIVE Unavailable Unavailable Allergies Active Allergy Reactions Criticality [...] diets. She wants a referral to the budget counselor. Discussed re weight reduction options including exercise, life style modifications, diet, referral to employee communications specialist. Discussed re lower calorie intake, increase [...] retiring, so any issues or concerns, contact [facility]. All her questions were answered and I [...] EST): Continue estrace cream and fu with FUSING LINE INSPECTOR. Refill sent to pharmacy. Assessment & Plan (10/09/2022 2:44 PM EST): Most likely secondary to atrophic vaginitis. -use estrogen cream daily x2 weeks and then 3 times per week. Pneumonia due to COVID-19 virus 08/24/2022 Polyp of cervix 08/24/2022 Assessment & Plan (03/26/2023 2:56 PM EDT): s/p resection by FUSING LINE INSPECTOR, more than a year ago, last PAP was normal refer to FUSING LINE INSPECTOR second opinion due to persistent dyspareunia Postcoital bleeding 08/24/2022 Assessment & Plan (03/26/2023 3:04 PM EDT): See previous issue and refer to FUSING LINE INSPECTOR Pruritus 08/24/2022 Right upper quadrant pain 08/24/2022 [...] q2wk + albuterol PRN and FU w/ inspector motor vehicles Decline flue and Covid IZ today, advised [...] Encounters Date Type Department Care Team Description 12/22/2024 Orders Only [facility] External Provider, [facility] 10/03/2024 Orders Only GENERIC EXTERNAL DATA DEPARTMENT [...] Procedure Name Priority Date/Time Associated Diagnosis Comments NM HEART PERFUSION SPECT STRESS AND REST Routine 12/22/2024 9:45 AM EDT BD DEXA AXIAL Routine 10/30/2024 12:35 PM [...] Recently Relevant to Health Maintenance Results * NM heart perfusion SPECT stress and rest (12/22/2024 9:45 AM EDT) Anatomical Region Laterality Modality Body Nuclear Medicine 12/22/2024 9:45 AM EDT Narrative 12/23/2024 2:42 PM EDT ? [facility] ?[address] ?[place] [address] ?Nuclear Medicine Report ? Signed ? Patient: Marcos,Ada E ?MR#: [id number] ?? [id number] ? : 1960 ?Acct:[id number] ? Age/Sex: 64 / F ?ADM Date: 12/22/24 ? Loc: HO.CARD ? Attending Dr: Efren Rausch MD ? Ordering Physician: Efren Rausch MD ?? Date of Service: 12/22/24 ?? Procedure(s): NM fatou perf SPECT rest ?? str ?? Accession Number(s): [id number] ? cc: Iqra Nelson MD; Efren Rausch MD ? Lexiscan Myocardial perfusion study ? Indication: ?? Chest pain to evaluate for myocardial ischemia ? Technique: ? The patient was brought in for a Lexiscan perfusion study on 12/22/2024 ?? and was injected 0.4 mg of Lexiscan intravenously. Within a minute of ?? this injection 25 mCi of sestamibi was given intravenously. Images were ?? obtained using the SPECT gamma camera interlaced with the gating ?? device. Images were obtained in supine position. ? Resting perfusion study was performed on 12/23/2024. Patient was ?? administered 25 mCi of sestamibi intravenously at rest. Images were ?? then obtained in supine position. ? Images obtained with and without CT attenuation. Total DLP 106 mGy-cm. ? Images were processed with the software and compared side to side in ?? short axis, horizontal long axis and vertical long axis views. ? Findings: ? The stress perfusion study showed ??nonattenuated images show minimal ?? thinning of the distal lateral wall of the LV myocardium. Remainder of ?? the LV myocardium is normally perfused. Attenuated corrected images ?? show normal uptake of radiotracer in all segments of the LV myocardium. ?? The gated study shows normal LV systolic function with calculated LVEF ?? of 74%. LV cavity is normal in size. The gated study shows normal ?? systolic ??wall thickening and contraction of segments. ?? Resting study shows no change in perfusion pattern compared to stress ?? perfusion study. Gating at rest reveals normal systolic wall motion ?? with ejection fraction at 59%. ? The findings are consistent with normal myocardial perfusion. ? NM/NM fatou perf SPECT rest ?? str ?? Impression: ? 1. ??Myocardial perfusion imaging study shows normal myocardial perfusion ?? 2. ??Gated LVEF is 74% ?? 3. Transient ischemic dilatation not present ? Nondiagnostic changes on EKG. ? Electronically signed by: ??Efren Rausch MD ??12/23/2024 02:39 PM EDT RP ? Dictated By: ?Efren Rausch MD ? Signed By: ?<Electronically signed by Efren Rausch MD in OV> ?12/23/24 1439 ? DD/ 0945 ? TD/TT: 12/23/24 1200 ? Commercial Real Estate Broker: ? Procedure Note Nikunj Butterfield - 12/23/[address] [address] Nuclear Medicine Report Signed Patient: Yoselin Rodríguez EMR#: [id number] : 1960cct:[id number] Age/Sex: 64 / FADM Date: 12/22/24 Loc: JAJA Attending Dr: Efren Rausch MD Ordering Physician: Efren Rausch MD Date of Service: 12/22/24 Procedure(s): NM fatou perf SPECT rest str Accession Number(s): [id number] cc: Iqra Nelson MD; Efren Rausch MD Lexiscan Myocardial perfusion study Indication: Chest pain to evaluate for myocardial ischemia Technique: The patient was brought in for a Lexiscan perfusion study on 12/22/2024 and was injected 0.4 mg of Lexiscan intravenously. Within a minute of this injection 25 mCi of sestamibi was given intravenously. Images were obtained using the SPECT gamma camera interlaced with the gating device. Images were obtained in supine position. Resting perfusion study was performed on 12/23/2024. Patient was administered 25 mCi of sestamibi intravenously at rest. Images were then obtained in supine position. Images obtained with and without CT attenuation. Total DLP 106 mGy-cm. Images were processed with the software and compared side to side in short axis, horizontal long axis and vertical long axis views. Findings: The stress perfusion study showed nonattenuated images show minimal thinning of the distal lateral wall of the LV myocardium. Remainder of the LV myocardium is normally perfused. Attenuated corrected images show normal uptake of radiotracer in all segments of the LV myocardium. The gated study shows normal LV systolic function with calculated LVEF of 74%. LV cavity is normal in size. The gated study shows normal systolic wall thickening and contraction of segments. Resting study shows no change in perfusion pattern compared to stress perfusion study. Gating at rest reveals normal systolic wall motion with ejection fraction at 59%. The findings are consistent with normal myocardial perfusion. NM/NM fatou perf SPECT rest str Impression: 1. Myocardial perfusion imaging study shows normal myocardial perfusion 2. Gated LVEF is 74% 3. Transient ischemic dilatation not present Nondiagnostic changes on EKG. Electronically signed by: Efren Rausch MD 12/23/2024 02:39 PM EDT Dictated By: Efren Rausch MD Signed By: <Electronically signed by Efren Rausch MD in OV> 12/23/24 1439 DD/ 0945 TD/TT: 12/23/24 1200 Commercial Real Estate Broker: [facility] External Provider IMG NM PROCEDURES Final Result * BD DEXA Axial (10/30/2024 12:35 PM EST) Anatomical Region Laterality Modality Body Radiographic Carrol ging 10/30/2024 12:3 5 PM EST Narrative 10/30/2024 2:47 PM EST ? [place] [facility] ? [address] ?[place] [address] ? Mammography Report ? Signed ? Patient: Marcos,Ada E ?MR#: [id number] ?? 233 ? : 1960 ?Acct:[id number] ? Age/Sex: 64 / F ?ADM Date: 10/30/24 ? Loc: HO.MAMMO ? Attending Dr: Maryann Joseph MD ? Ordering Physician: Maryann Joseph MD ?Results: ? Date of Service: 10/30/24 ?Follow Up: ? Procedure(s): XR DEXA axial skeleton ?? Accession Number(s): [id number] ? cc: Iqra Nelson MD; Maryann Joseph MD ? EXAMINATION: ??DXA BONE DENSITY AXIAL ? HISTORY: ??Estrogen deficiency ? TECHNIQUE: [place] Dual energy absorptiometry (DEXA) ?? of the [...] is a trademark of the [employer]'s ?? [place] for Metabolic Bone Disease, a World Health Organization (WHO) ?? Collaborating Center. ? Electronically signed by: ??Mehran Evans MD ??10/30/2024 02:44 PM EST ?? RP ? Dictated By: ?Mehran Evans MD ? Signed By: ?<Electronically signed by Mehran Evans MD in OV> ?10/30/24 1444 ? DD/ 1235 ? TD/TT: 10/30/24 1255 ? Commercial Real Estate Broker: ? Procedure Note Nikunj Butterfield - 10/30/2024 [facility] [address] [place] [address] [place] [address] Mammography Report Signed Patient: MarcosYoselin EMR#: [id number] : 1Acct:[id number] Age/Sex: 64 / FADM Date: 10/30/24 Loc: HO.MAMMO Attending Dr: Maryann Joseph MD Ordering Physician: Maryann Josephults: Date of Service: 10/30/24Follow Up: Procedure(s): XR DEXA axial skeleton Accession Number(s): [id number] cc: Iqra Nelson MD; Maryann Joseph MD EXAMINATION: DXA BONE DENSITY AXIAL HISTORY: Estrogen deficiency TECHNIQUE: [place] Dual energy absorptiometry (DEXA) of the lumbar [...] of the [employer]'s [place] for Metabolic Bone Disease, a World Health Organization (WHO) Collaborating Center. Electronically signed by: Mehran Evans MD 10/30/2024 02:44 PM EST RP Dictated By: Mehran Evans MD Signed By: <Electronically signed by Mehran Evans MD in OV> 10/30/24 1444 DD/ 1235 TD/TT: 10/30/24 1255 Commercial Real Estate Broker: [facility] External Provider IMG DXA PROCEDURES Final Result * Gram stain (10/03/2024 12:00 AM EST) 10/03/2024 10/03/2024 Comment:Sputum Narrative [facility] - 10/06/2024 9:08 AM EST Gram stain results: 4+ polys 2+ epithelial cells 3+ Gram-positive cocci 3+ Gram-positive rods 2+ Gram-negative rods Sputum Culture BAP Sputum Culture 4+ mixed upper-resp lara Haemophilus parainfluenzae B-Lac Susc (reported) Beta-lactamase not produced; suggests PEN/AMP susceptibility Quant Org ID 3+ Specimen Source: Sputum us Generic External Data Provider LAB MICROBIOLOGY - GENERAL ORDERABLES Final Result [facility] [address] [place] [address] [phone] * Lipid Panel with Reflex to Direct LDL (11/08/2023 12:00 AM EST) Triglycerides 128 <150 mg/dL [facility] Comment:Desirable Triglyceri de: less than 150 mg/dLBorderline High Triglyceride 150-199 mg/dLHigh Triglyceride: 200-499 mg/dLVery High Triglyceride: greater than or equal to 5OO mg/dL Cholesterol 169 <200 mg/dL [facility] Comment:Desirable Cholestero l: less than 200 mg/dLBorderline High Cholesterol: 200-239 mg/dLHigh Cholesterol: greater than 239 mg/dL LDL Cholesterol Calculated 82 <100 mg/dL [facility] Comment:Desirable LDL: less than 100 mg/dLNear Optimal/Above Optimal LDL: 110- 129 mg/dLBorderline High LDL: 130-159 mg/dLHigh LDL: 160-189 mg/dLVery High LDL: greater than or equal to 190 mg/dL HDL Cholesterol 62 >40 mg/dL [facility] Comment:Desirable HDL: great er than 40 mg/dL Note: This HDL assay may give artificially low results in patients with liver disease. Blood 11/08/2023 11/08/2023 Iqra Nelson MD LAB BLOOD ORDERABLES Fin al Result Performing Organization Address [facility] Co de Phone Number [facility] [address] [place] [phone] * HPV mRNA E6/E7 w/Reflex to HPV Genotypes 16, 18/45 (05/31/2023 1:12 PM EDT) HPV nRNA E6/E7 Not Detected Not Detected [facility] Comment:Methodology: Transcr iption-Mediated AmplificationThis assay detects E6/E7 viral messenger RNA (mRNA) from 14high-risk HPV types (16,18,31,33,35,39,45,51,52,56,58,59,66,68).Cervical sources are required for HPV testing.If a vaginal source from a patient who has had atotal hysterectomy with removal of cervix wassubmitted, please contact the testing laboratoryfor alternative testing options.For additional information, please refer tohttp://education.Lessons Only/faq/PWE015y2(This link if provided for information/educational purposes only.)THIS TEST WAS PERFORMED AT:[facility] [place] [phone] HARRISON MD HPV mRNA E6/E7 TNP [facility] HPV 16 RNA [facility] HPV 18/45 RNA [facility] 05/31/2023 1:12 PM EDT 06/01/2023 9:00 AM EDT [facility] External Provider LAB CYT OLOGY ORDERABLES Final Result Performing Organization Address [facility]/ZIP Co de Phone Number [facility] [address] [place] [phone] * Pap Smear (05/31/2023 1:12 PM EDT) 05/31/2023 1:12 PM EDT 06/01/2023 9:00 AM EDT [facility] - 06/12/2023 1:57 PM EDT ----- ------- Name: Yoselin Rodríguez ?Age/Sex: 62/F ? : 1960 Unit#: [id number] ?? Attend Dr: Ale Francisco CNM ?Re05/31/23 ?Status: DEP REF ? Location: HO.LNP ?Disch: ? ----- ------- SPEC : [id number] ?RECD: 06/01/23-899 ? STATUS: ??SOUT ? REQ NUM: [id number] ? AGATHA: 05/31/23-1312 ? SUBM DR: Ale Francisco CNM ? ENTERED: ??06/01/23-1102 ?SP TYPE: Pap Smr ?OTHR DR: Iqra [...] 66, 68) ? HPV testing performed by [facility], [place], [place]. ??See reference laboratory ?? portion of the EMR for entire report. ?Clinical Information LMP: No menses Previous PAP test: 07/19/21, abnormal Other history: +HPV, personal history of other infectious and parasitic diseases ? Material Received ?? ThinPrep-Cervical Copies To: ?? Iqra Nelson MD ?? [address] ?? [place] [address] ? lAe Francisco CNM ?? [address] ?? [place] [address] ?? [phone] ----- ------- Signed (signature on file) Yajaira Dash 06/12/23 1357 ? ----- ------- ? END OF REPORT ? [facility] External Provider LAB [facility] ORDERABLES Final Result [facility] [address] [place] [phone] * Mammography Report 1 (04/21/2021 1:15 PM EDT) Anatomical Region Laterality Modality Breast Bilateral Mammography 04/21/2021 1:15 PM EDT Narrative 04/22/2021 10:49 AM EDT Refer to the Notes tab for result details [facility] Procedure: Mammography Report 1 Procedure Note ProviderAntoine MD - 12/10/2022 Refer to the Notes tab [...] Most Recently Relevant to Health Maintenance Insurance - [facility] Care Teams Senior Case Manager Relationship Specialty Start Date End Date Johnny Casanova, RachelD [address] [place] [phone] Pharmacist Internal Medicine 09/26/22 Toñito Caraballo FNP [address] [place] [address] Nurse Practitioner Family Medicine 08/08/23
--- OUTSIDE RECORDS SUMMARY | 2024-12-23 15:55 | XMS_ITS | Encounter Summary ---
Author Organization [employer] [facility] Address [address] [facility] 7t [place] [address] Care Team Providers Care Film Cutter Name Role Phone Iqra Nelson MD Primary Care Provider + Johnny Casanova PharmD Unavailable [phone] Toñito Caraballo COOPERAGE SHOP SUPERVISOR Unavailable Unavailable Encounter Details Date Type Department Care Team ([facility] st Contact Info) Description 10/10/2022 Orders Only [facility] MEDICINE [address] [place], [place] [phone] Iqra Nelson MD 230 [place], [place] [phone] Vitamin D deficiency (Primary Dx); Senile osteoporosis [...] documented as of this encounter Care Teams Film Cutter Relationship Specialty Start Date End Date Iqra Nelson MD [address] [place] [address] PCP - General Family Medicine 12/05/16 04/08/24 Johnny Casanova, Ti [address] [place] [address] Pharmacist Internal Medicine 09/26/22 Toñito Caraballo FNP [address] [place] [address] Nurse Practitioner Family Medicine 08/08/23 documented as of this encounter
--- OUTSIDE RECORDS SUMMARY | 2024-12-23 15:55 | XMS_ITS | Encounter Summary ---
Author Organization [employer] [facility] Address [address] [facility] 7t [place] [address] Care Team Providers Care Iron Worker Foreman Name Role Phone Iqra Nelson MD Primary Care Provider + Johnny Casanova PharmD Unavailable [phone] Toñito Caraballo DIRECTOR SECURITY MANAGEMENT Unavailable Unavailable Encounter Details Date Type Department Care Team ([facility] st Contact Info) Description 09/26/2022 Orders Only [facility] MEDICINE 230 [place] [address] Johnny Casanova, PharmD 230 [place] [address] Social History Tobacco Use Types Packs/Day Years [...] documented as of this encounter Care Teams Iron Worker Foreman Relationship Specialty Start Date End Date Iqra Nelson MD 230 [place] [address] PCP - General Family Medicine 12/05/16 04/08/24 Johnny Casanova, PharmD [address] [place] [address] Pharmacist Internal Medicine 09/26/22 Toñito Caraballo FNP [address] [place] [address] Nurse Practitioner Family Medicine 08/08/23 documented as of this encounter
--- OUTSIDE RECORDS SUMMARY | 2024-12-23 15:55 | XMS_ITS | Encounter Summary ---
Author Organization [employer] [facility] Address [address] [facility] 7t [place] [address] Care Team Providers Care Box Car Loader Name Role Phone Iqra Nelson MD Primary Care Provider + Johnny Casanova PharmD Unavailable [phone] Toñito Caraballo Unavailable Unavailable Reason for Visit * Reason Comments Med Refill Encounter Details Date Type Department Care Team (Late st Contact Info) Description 02/26/2023 Refill [facility] MEDICINE 230 [place] [address] Toñito Caraballo FNP Major depressive disorder, recurrent, [...] Diagnoses Diagnosis Major depressive disorder, recurrent, moderate ([facility]) Major depressive disorder, recurrent episode, moderate documented in this encounter Additional Health Concerns Assessment Noted Time PHQ-9 Depression Total Score: 10 023 3:45 PM EDT documented as of this encounter Care Teams Box Car Loader Relationship Specialty Start Date End Date Iqra Nelson MD [address] [place] [address] PCP - General Family Medicine 12/05/16 04/08/24 Johnny Casanova, RachelD [address] [place] [address] Pharmacist Internal Medicine 09/26/22 Toñito Caraballo FNP [address] [place] [address] Nurse Practitioner Family Medicine 08/08/23 documented as of this encounter
--- OUTSIDE RECORDS SUMMARY | 2024-12-23 15:55 | XMS_ITS | Encounter Summary ---
Author Organization [employer] [facility] Address [address] [facility] 7t [place] [address] Care Team Providers Care Office Cashier Name Role Phone Iqra Nelson MD Primary Care Provider + Johnny Casanova PharmD Unavailable [phone] Toñito Caraballo GROUP THERAPIST Unavailable Unavailable Encounter Details Date Type Department Care Team ([facility] st Contact Info) Description 03/08/2023 Abstract [facility] MEDICINE 230 [place] [address] Iqra Nelson MD 230 [place] [address] Social History Tobacco Use Types Packs/Day Years [...] documented as of this encounter Care Teams Office Cashier Relationship Specialty Start Date End Date Iqra Nelson MD [address] [place] [address] PCP - General Family Medicine 12/05/16 04/08/24 Johnny Casanova, RachelD [address] [place] [address] Pharmacist Internal Medicine 09/26/22 Toñito Caraballo FNP [address] [place] [address] Nurse Practitioner Family Medicine 08/08/23 documented as of this encounter
--- OUTSIDE RECORDS SUMMARY | 2024-12-23 15:55 | XMS_ITS | Data Portability ---
Author Organization [employer] [facility] Address [address] [place] [phone] Care Team Providers Care Industrial Safety And Health Manager Name Role Phone [facility] OTHER [facility] OTHER Assessment Encounter Date Assessment Date Assessment LastModified by Organization Details LastModified Time 05/05/2023 05/05/2023 I provided real -time medical direction via phone for this encounter, and was available for additional phone based assistance as needed. I have reviewed and agree with the Assessment and Plan as documented by the Florist [email or web address] Not available 05/05/2023 17:13:47 08/27/2024 08/27/2024 service [...] QL IA, respiratory specimen 2023 [facility], [address] [place] [address], [phone] 19:41:18 rapid flu (A+B) [address], [phone] 19:41:57 Referral None recorded. Procedures None recorded. Surgeries None recorded. Imaging None recorded. Medication Orders prednisone 20 mg tablet 2023 024 [id number] [address] [place] [address], [address], 4 16:22:59 prednisone 20 mg tablet 2023 024 [id number] [address] [place] [address], [address], 4 16:24:53 benzonatate 100 mg capsule 2023 024 [id number] [address] [place] [address], [address], 4 16:24:53 azithromyci n 250 mg tablet 2022 023 [id number] [address] [place] [address], [address], 3 17:11:16 Augmentin 875 mg-125 mg tablet 2022 023 [id number] [address] [place] [address], [address], 3 16:07:33 metronidazo le 500 mg tablet 2021 022 [id number] [address] [place] [address], [address], 2 18:29:57 metronidazo le 500 mg tablet 2021 022 krallo Not available 2 09:06:30 Patient TargetsNo targets recorded. Patient InstructionsNo instructions recorded. Reason for Referral None Reported. Results Created Date Observation Date Name Description Value Unit Range Abnormal Flag Note LastModifiedBy Organization Detail LastModifiedTime 08/27/20 24 08/27/2024 rapid flu (A+B) Flu negati ve Not Available [facility] ed [address] [place] [address], [phone] 08/27/2024 19:14:26 08/27/20 24 08/27/2024 rapid SARS CoV 2 Ag, QL IA, respi rator y speci men rapid SARS CoV 2 Ag, QL IA, respiratory specimen negati ve Not Available Main - [facility] ed [address] [place] [address], [phone] 08/27/2024 19:14:26 Result Notes None recorded. Medical [...] Not available Not available Not available 05/05/2023 15448 RxNorm Not Available [facility] - production 4 03:47:03 3052 ibuprofen medicatio n hives Not available Not available 05/05/2023 5640 RxNorm SOB Karen Giraldo MD [address] [place] [address],[address], [place], [phone], [employer] 3 17:17:13 3053 Augmentin medicatio n dyspnea Not available Not available 05/05/2023 49688 2 RxNorm Urtic aria Karen Giraldo MD [address] [place] [address],[address], [place], [phone], [employer] 3 17:18:03 Medications Name Sig Start Date [...] Not Available No t Available [facility] Licensed Psychiatric Technician active Not Available Not Available No t [...] 3 98 % 98 % 71 /min 60117.8 8 g 97.1 [degF] 16 /min 181 [...] Address Organization Details Last Updated DateTime 05/05/2023 18835.82 g Lexy Mendoza [address] [place] [address],[address], [place], [address], [employer] 05/05/2023 17:09:15 Date Recorded Oxygen saturation Oxygen saturation in Arterial blood by Pulse oximetry Body weight Respiratory rate Heart rate Body temperature Systolic blood pressure Diastolic blood pressure Provider Name and Address Organization Details Last Updated DateTime 4 99 % 99 % 06129.5 36 g 16 /min 82 /min 98 [degF] 164 mm[Hg] 72 mm[Hg] Not Available [facility] [employer] 4 16:20:14 Date Recorded Body temperature Heart rate Respiratory rate Oxygen saturation Oxygen saturation in Arterial blood by Pulse oximetry Systolic blood pressure Diastolic blood pressure Provider Name and Address Organization Details Last Updated DateTime 2 98.6 [degF] 80 /min 16 /min 100 % 100 % 161 mm[Hg] 78 mm[Hg] Orlin Ruiz MD [address] [facility],[address], [place], [phone], [employer] 2 18:30:24 Social History None recorded. Functional [...] 1109 Orlin Ruiz MD Main - [facility] [address] [place] [phone] 01/05/2022 18:15:37 06/07/2022 14:14:50 Acute pelvic pain 207226692 R10.2 Reports history of cramping after cervical polyp removal. Reports spotting, on re-assessm ent with neon pumper, passing fishy-sme lling white discharge. No abdominal tenderness on neon pumper examinatio n to suggest referred intra-abdo mary process. Reports symptoms are not consistent with UTI, so LE on UA likely represents inflammati on versus contaminat ion. Unable to perform pelvic examinatio n with neon pumper so difficult to assess for other pelvic pathology. Would benefit from close follow-up by physician who performed the procedure (Dr. Goldsmith?? ) Will treat empiricall y with Flagyl for BV in the interim. [address] Andrea Thorpe MD Main - [facility] [address] [place] [phone] 04/24/2023 16:05:20 04/24/2023 23:29:29 Acute otitis media 7672076 H66.92 Patient with history of adult ear infection presents with typical symptoms of ear pain. Florist examinatio n consistent with ear infection. Will treat with augmentin. They can pick it up tonight, so did not give anything via neon pumper. [address] Karen Giraldo MD Main - [facility] [address] [place] [phone] 05/05/2023 17:08:26 05/07/2023 07:15:01 Acute otitis media 5053496 H66.92 Patient reports she has had azithromyc [...] or middle ear/ inner ear fluid drain 24325 Domi Garland MD [facility] [employer] [address] [place] [phone] 08/27/2024 16:20:07 08/28/2024 00:15:45 Acute exacerbation of chronic obstructive pulmonary disease 466915655 J44.1 Health Concerns Section Related Observation LastModified by Organization Detai ls LastModified Time None Recorded Concern Status LastModified by Organization Details LastModified Time None Recorded Advance Directives Directive None Recorded Payers Encounter Date Sequence Insurance Name Policy Number Policy Barrow Covered Member ID Barrow Member ID Guarantor Name 01/05/2022 1 [facility] - DOS PRIOR TO 2022 - DUAL ELIGIBLE (MEDICARE REPLACEMENT/AD VANTAGE - HMO) Yoselin Rodríguez [id number] Yoselin Rodríguez 04/24/2023 1 [employer] CARE [employer] - DOS ON OR AFTER 2022 - DUAL ELIGIBLE - PENITENTIARY OPTIONS AND ONE CARE (MEDICARE REPLACEMENT/AD VANTAGE - HMO) Yoselin Rodríguez [id number] Yoselin Rodríguez 05/05/2023 1 [employer] CARE ALLIANCE - DOS ON OR AFTER 2022 - DUAL ELIGIBLE - PENITENTIARY OPTIONS AND ONE CARE (MEDICARE REPLACEMENT/AD VANTAGE - HMO) Yoselin Rodríguez [id number] Yoselin Rodríguez 08/27/2024 [facility] - DOS ON OR AFTER 2022 - DUAL ELIGIBLE - PENITENTIARY OPTIONS AND ONE CARE (MEDICARE REPLACEMENT/AD VANTAGE - HMO) Yoselin Rodríguez [id number] Yoselin Rodríguez Notes Date Note Type Note [...] with her previous UTI. Orlin Ruiz MD [address] [place] [address],[address], [place], [phone], [employer] [facility] 01/05/2022 18:31:02 04/24/2023 text/html HPI: Severe left ear ache .................... .................... .................... .................... .................... .................... .................... . CRC Nursing Assessment: Comments: [facility] triage nurse calling on behalf of member with request for MIH visit for complaints of outer ear discomfort for 3 days Aware MIH visit does not include inner ear eval. Request instED visit to eval unsure fever/chills Verify member name/- Andrea Thorpe MD [address] [place] [address],[address] [facility], [place], [phone] [employer] 04/24/2023 16:07:52 05/05/2023 text/html HPI: mbr with know ear infection for two weeks/nasal congestion/moderate pain, recent ED visit ordered Fluconazole, mbr looking for oral antibiotics, requesting MIH. Protocol Used: Ear - Discharge Protocol-Based Disposition: Consider instED, [facility] Community Clinician, or PCP visit [...] .................... .................... .................... .................... .................... .................... ........... Florist Note From Estrada Jain: Dispatched to the [...] noted to have a steady gait. [facility] contacted to discuss patient presentation, complaints, and clinical findings. [facility] orders Azythromycin 500mg PO [...] .................... . Disposition: Fulfilled Karen Giraldo MD [address] [place] [address],[address], [place], [phone], [employer] 05/05/2023 22:29:41 08/27/2024 text/html HPI: Member calling [...] any additional information to process this visit. Florist Organization Information for Shantanu Olson [employer] Name: [facility] Address: [address] [place] [address] Car Record Clerk: Zachary Heredia MD [place] No.: [id number] Florist POC Test Results from Shantanu Olson [employer] Rapid COVID antigen (16:14:44) COVID: - Attachments uploaded as part of this test result can be found under Documents section. Rapid influenza antigen (16:14:45) Flu: - Attachments uploaded as part of this test result can be found under Documents section. .................... .................... .................... .................... .................... .................... .................... . Florist Note From Shantanu Olson: Pt co dry [...] bilaterally, Covid and flu swab neg. [facility] Dada contacted and 20mg prednisone given PO, right meds, dose, date and route. RX called in for prednisone and benzonatate and continue with nebulizer treatments.. Pt education on signs indicating the ER. Pt advised to continue with machinist supervisor appt. Pt advised to follow up with PCP. .................... .................... .................... .................... .................... .................... .................... . [facility] Consulted: Domi Garland .................... .................... .................... .................... .................... .................... .................... . Disposition: Viviana Garland MD [address] [facility],[address], [place], [address], [employer] 08/27/2024 19:14:58 OBGyn Episode No OBEpisode recorded.
--- OUTSIDE RECORDS SUMMARY | 2024-12-23 15:55 | XMS_ITS | Encounter Summary ---
Author Organization [employer] Address [address] [facility] 7t [place] [address] Care Team Providers Care Python Programmer Name Role Phone Iqra Nelson MD Primary Care Provider + Johnny Casanova PharmD Unavailable [phone] Toñito Caraballo Unavailable Unavailable Reason for Visit * Reason Comments Med Refill Encounter Details Date Type Department Care Team (Late st Contact Info) Description 12/28/2022 Refill [facility] MEDICINE 230 [place] [address] Toñito Caraballo FNP Major depressive disorder, recurrent, [...] Diagnoses Diagnosis Major depressive disorder, recurrent, moderate ([facility]) Major depressive disorder, recurrent episode, moderate documented in this encounter Additional Health Concerns Assessment Noted Time PHQ-9 Depression Total Score: 16 023 1:04 PM EDT documented as of this encounter Care Teams Python Programmer Relationship Specialty Start Date End Date Iqra Nelson MD [address] [place] [address] PCP - General Family Medicine 12/05/16 04/08/24 Johnny Casanova, Ti [address] [place] [address] Pharmacist Internal Medicine 09/26/22 Toñito Caraballo FNP [address] [place] [address] Nurse Practitioner Family Medicine 08/08/23 documented as of this encounter
--- OUTSIDE RECORDS SUMMARY | 2024-12-23 15:55 | XMS_ITS | Encounter Summary ---
Author Organization [employer] Address [address] [facility] 7t [place] [address] Care Team Providers Care Account Liaison Hospice Name Role Phone Iqra Nelson MD Primary Care Provider + Johnny Casanova PharmD Unavailable [phone] Toñito Caraballo Unavailable Unavailable Reason for Visit * Reason Comments Med Refill Encounter Details Date Type Department Care Team (Late st Contact Info) Description 07/20/2023 Refill [facility] MEDICINE 230 [place] [address] Toñito Caraballo FNP Social History Tobacco Use [...] as of this encounter Care Teams Account Liaison Hospice Relationship Specialty Start Date End Date Iqra Nelson MD 230 [place] [address] PCP - General Family Medicine 12/05/16 04/08/24 Johnny Casanova PharmD 230 [place] [address] Pharmacist Internal Medicine 09/26/22 Toñito Caraballo FNP 230 [place] [address] Nurse Practitioner Family Medicine 08/08/23 documented as of this encounter
--- OUTSIDE RECORDS SUMMARY | 2024-12-23 15:55 | XMS_ITS | Encounter Summary ---
Author Organization [employer] [facility] Address [address] [facility] 7t [place] [address] Care Team Providers Care Rolling Mill Operator Helper Name Role Phone Iqra Nelson MD Primary Care Provider + Johnny Casanova PharmD Unavailable [phone] Toñito Caraballo Unavailable Unavailable Reason for Visit * Reason Comments Med Refill Encounter Details Date Type Department Care Team (Late st Contact Info) Description 04/22/2023 Refill [facility] MEDICINE [address] [place] [address] Toñito Caraballo FNP Social History Tobacco Use [...] documented as of this encounter Care Teams Rolling Mill Operator Helper Relationship Specialty Start Date End Date Iqra Nelson MD 230 [place] [address] PCP - General Family Medicine 12/05/16 04/08/24 Johnny Casanova PharmD 230 [place] [address] Pharmacist Internal Medicine 09/26/22 Toñito Caraballo FNP 230 [place] [address] Nurse Practitioner Family Medicine 08/08/23 documented as of this encounter
--- OUTSIDE RECORDS SUMMARY | 2024-12-23 15:55 | XMS_ITS | Encounter Summary ---
Author Organization [employer] Address [address] [facility] 7t [place] [address] Care Team Providers Care Title Manager Name Role Phone Johnny Casanova PharmD Unavailable [phone] Toñito Caraballo BENCH WORKER HOLLOW HANDLE Unavailable Unavailable Encounter Details Date Type Department Care Team ([facility] Contact Info) Description 12/22/2024 Orders Only [facility] External Provider, [facility] Social History Tobacco Use Types Packs/Day Years [...] the past 12 months, has t he [employer], gas, oil or water [employer] threatened to shut off services in your [...] AND REST Routine 12/22/2024 9:45 AM EDT documented in this encounter Results * NM heart perfusion SPECT stress and rest (12/22/2024 9:45 AM EDT) Anatomical Region Laterality Modality Body Nuclear Medicine 12/22/2024 9:45 AM EDT Narrative 12/23/2024 2:42 PM EDT ? [facility] ?[address] ?[place] [address] ?Nuclear Medicine Report ? Signed ? Patient: Marcos,Ada E ?MR#: [id number] ?? [id number] ? : 1960 ?Acct:[id number] ? Age/Sex: 64 / F ?ADM Date: 12/22/24 ? Loc: HO.CARD ? Attending Dr: Efren Rausch MD ? Ordering Physician: Efren Rausch MD ?? Date of Service: 12/22/24 ?? Procedure(s): NM fatou perf SPECT rest ?? str ?? Accession Number(s): [id number] ? cc: Iqra Nelson MD; Efren Rausch [...] DD/ 0945 ? TD/TT: 12/23/24 1200 ? Elevator Starter: ? Procedure Note Nikunj Butterfield - 12/23/[address] [address] Nuclear Medicine Report Signed Patient: Yoselin Rodríguez EMR#: [id number] : 1960cct:[id number] Age/Sex: 64 / FADM Date: 12/22/24 Loc: .[facility] Attending Dr: Efren Rausch MD Ordering Physician: Efren Rausch MD Date of Service: 12/22/24 Procedure(s): NM fatou perf SPECT rest str Accession Number(s): [id number] cc: Iqra Nelson MD; Efren Rausch MD [...] 12/23/24 1439 DD/ 0945 TD/TT: 12/23/24 1200 Elevator Starter: [facility] External Provider IMG NM PROCEDURES Final Result documented in this encounter Visit Diagnoses Not on filedocumented in this encounter Additional Health Concerns Assessment Noted Time PHQ-9 Depression Total Score: 9 03/24/20 24 9:50 AM EDT documented as of this encounter Care Teams Title Manager Relationship Specialty Start Date End Date Johnny Casanova PharmD 230 [place] [address] Pharmacist Internal Medicine 09/26/22 Toñito Caraballo FNP 230 [place] [address] Nurse Practitioner Family Medicine 08/08/23 documented as of this encounter
--- OUTSIDE RECORDS SUMMARY | 2024-12-23 15:55 | XMS_ITS | Encounter Summary ---
Author Organization [employer] [facility] Address [address] [facility] 7t [place] [address] Care Team Providers Care Administrative Assistant Name Role Phone Iqra Nelson MD Primary Care Provider + Johnny Casanova PharmD Unavailable [phone] Toñito Caraballo Unavailable Unavailable Reason for Visit * Reason Comments Med Refill Encounter Details Date Type Department Care Team (Late st Contact Info) Description 02/21/2023 Refill [facility] MEDICINE 230 [place] [address] Toñito Caraballo FNP Social History Tobacco Use [...] documented as of this encounter Care Teams Administrative Assistant Relationship Specialty Start Date End Date Iqra Nelson MD 230 [place] [address] PCP - General Family Medicine 12/05/16 04/08/24 Johnny Casanova PharmD 230 [place] [address] Pharmacist Internal Medicine 09/26/22 Toñito Caraballo FNP 230 [place] [address] Nurse Practitioner Family Medicine 08/08/23 documented as of this encounter
== END 2024-12-23 13:43 | disposition home or self-care (01) ==
LOC: HO.HPS 13:05
PROVIDERS: PCP Internal Medicine; Visit Provider Internal Medicine Pulmonary Disease
DX: J45.40 Moderate persistent asthma, uncomplicated (principal); Z91.09 Other allergy status, other than to drugs and biological substances
CPT/HCPCS: 99214

== ENCOUNTER → 2024-12-23 13:05 | Outpatient (BNVA) | payer OTHER, SELFPAY | PROVIDERS: PCP Internal Medicine; Visit Provider Internal Medicine Pulmonary Disease | DX: J45.40 Moderate persistent asthma, uncomplicated (principal); Z91.09 Other allergy status, other than to drugs and biological substances | CPT/HCPCS: 99212 ==

== ENCOUNTER 2024-12-30 12:49 | Outpatient (AMB) | payer OTHER, SELFPAY ==
[2024-12-30 13:02] VITALS: BP 132/76; PULSE 107; O2SAT 88; BMI 35.1
--- NOTE | 2024-12-30 13:02 | MHC.OFFVIS ---
Vital Signs 12/30/24 13:02 Height 4 ft 10 in Weight 167 lb 12.348 oz BMI 35.1 BP 132/76 Blood Pressure Location Lt brachial Position Sitting Pulse 107 H Pulse Source Pulse Oximeter Pulse Oximetry (%) 88 L Intake Visit Reasons: Osteoporosis/FMS Intake Note: Patient last seen by Doctor Maryann Joseph on 09/24/24. Presents today for Osteoporosis follow up and Xray/lab's test results. Patient complains of lower back pain for about a week now. Allergies cephalexin Allergy (Severe, Verified 12/30/24 13:08) Rash seafood Allergy (Severe, Verified 12/30/24 13:05) Anaphylaxis vancomycin [VANCOMYCIN] Allergy (Severe, Verified 12/30/24 13:05) ANAPHYLAXIS, hives aspirin [ASPIRIN] Allergy (Intermediate, Verified 12/30/24 13:05) rash, asthma codeine [CODEINE] Allergy (Mild, Verified 12/30/24 13:05) rash egg [EGGS] Allergy (Mild, Verified 12/30/24 13:05) VOMITING peanut [PEANUTS] Allergy (Mild, Verified 12/30/24 13:05) HIVES,DIARRHEA amoxicillin [From Augmentin] Allergy (Verified 12/30/24 13:05) hives, swelling, difficulty breathing clavulanic acid [From Augmentin] Allergy (Verified 12/30/24 13:05) hives, swelling mushroom Allergy (Verified 12/30/24 13:05) Rash lactose Adverse Reaction (Intermediate, Verified 12/30/24 13:05) diarrhea cepha mixlexin Allergy (Intermediate, Uncoded 12/30/24 13:08) racing heart, rash Medication List - Last Reconciled 12/30/24 by Peace Chang MD acetaminophen (Tylenol Extra Strength) 500 mg PO Q6H PRN 30 days albuterol sulfate 90 mcg/actuation 90 mcg inhalation DAILY albuterol sulfate 2.5 mg (3 mL) inhalation TID PRN calcium carbonate 600 mg PO BID chlorthalidone 25 mg PO DAILY 90 days dicyclomine 20 mg PO QID dupilumab (Dupixent) 200 mg (1.14 mL) subcut Q2W ergocalciferol (vitamin D2) 1,250 mcg PO QWEEK estradiol 0.01%(0.1mg/gram) 1 g vaginal DAILY 30 days fluoxetine 20 mg PO DAILY hydroxyzine HCl 10 - 20 mg PO Q6H PRN lisinopril 40 mg PO DAILY 90 days lorazepam 1 mg PO DAILY PRN magnesium hydroxide (Milk of Magnesia) 10 mL PO BEDTIME melatonin 3 mg PO BEDTIME omeprazole 40 mg PO BID ondansetron 4 mg PO Q8H PRN 7 days sumatriptan succinate 50 mg PO DAILY PRN Symbicort 160-4.5 mcg/actuation (budesonide-formoterol) 2 puffs PO BID NS trazodone 100 mg PO DAILY HPI Comments Details: Patient is a 64-year-old female with asthma/COPD, depression, hypertension, YESSICA, migraines, IBS with constipation and diarrhea, osteoporosis and fibromyalgia here today for follow up Interval History: Patient last seen 09/24/[address] Joseph. At that time she was following up for her osteoporosis. She received her last Reclast infusion 02/2024. Had 2 weeks of jaw pain. Does not want to continue with infusion. No falls since the last visit. No broken bones. Rheumatologic History: Osteoporosis 2022. Based on DEXA -3.3 AP spine Initial history: This is a 63-year-old female who is referred by her PCP for evaluation of osteoporosis. Patient states that since traveled she would need repeated courses of prednisone to control her asthma. Until recently she was started on Dupixent with reduction in dependence on steroids. She was started on alendronate by her PCP about a month ago. He states that it causes dizziness. She thought that it is taken once a month. She states that in her 30s, she was having back pain and was evaluated by paper bundler and was told that she has lupus she was told that the treatments would consist of prednisone. Patient declined. She does not recall any formal assessment by a paper bundler since then. She states that she can see intermittent joint pains. Intermittently she would have pain in her ribs on the right and posteriorly. Associated with swelling. In 2018 she had unprovoked PE and was found to have positive lupus anticoagulant. She was on rivaroxaban for some time. She is no longer on rivaroxaban. She is unaware of any family history of an autoimmune rheumatic disease Current Rheumatology Medication(s): IV Reclast infusion 5 mg every year Vitamin D 61353B once a week [facility] Medical History Abdominal bloating Acute diarrhea Physical exam COVID-19 Pulmonary embolism Pulmonary embolism Vaginal itching Hx of human papillomavirus infection Candidiasis of mouth and esophagus Abdominal cramping Pneumonia Bile salt-induced diarrhea History of pilonidal cyst Gastritis IBS (irritable bowel syndrome) Hypertension Pre-eclampsia Irritable bowel syndrome with both constipation and diarrhea Gallstones Surgical History H/O cervical polypectomy Hx of esophagogastroduodenoscopy H/O colonoscopy History of surgical removal of pilonidal cyst S/P tonsillectomy History of section History of cholecystectomy Family History Father Heart attack GERD (gastroesophageal reflux disease) Peptic ulcer disease Mother CHF (congestive heart failure) Afib Diverticulitis History of bowel resection Hypothyroid COVID-19 Maternal Aunt Diabetes Maternal Uncle Cancer Maternal Grandmother Cancer Brother Mental health disorder Social History Household Members: Spouse Housing: Apartment Are you a primary housekeeper caregiver to a significant other at home: No Do you presently have visiting nurse or other home services: Yes (phone visits) Alcohol intake: former Patient Tobacco Use Status: Never used Tobacco e-Cigarette/Vaping Use: Never Used Second Hand Smoke Exposure: No service: No Current occupational status: retired Cognitive needs: No Hearing needs: No Vision needs: No Female Reproductive History Menstrual Age of Menarche: 10 Review of Systems Const Details: Review of Systems Constitutional: Denies fever, chills, weight loss ENT: Denies vision changes, eye pain or eye redness, dental caries, dry mouth GI: Denies nausea, vomiting, diarrhea, abdominal pain, change in BM Pulm: Denies SOB, DANIEL, hemoptysis, wheezing Cards: Denies chest pain, palpitations Skin: Denies Raynaud's, rash, nail changes, photosensitivity, 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 Well appearing and in no apparent painful distress HEENT Conjunctiva and sclera clear. ?Pupils equal round and reactive to light. ?No lymphadenopathy. ? CHEST/RESPIRATORY SYSTEM Normal respiratory effort and able to speak in complete sentences. ?Clear to auscultation bilaterally. ?No crackles, rales, rhonchi, wheezes heard. CARDIAC SYSTEM Regular rate and rhythm. ?S1 and S2 heard no murmurs. ?Radial pulses intact bilaterally MSK Hands: ?Good on car supervisor strength bilaterally. No deformities noted. ?No synovitis noted to the MCPs, PIPs or DIPs. ?No tenderness to palpation of these joints. Wrists: ?Full range of motion at the wrists without pain. ?No tenderness to palpation or synovitis noted to the wrists. Elbows: Full range of motion. No tenderness, weakness, swelling, increased warmth or erythema. Positive Miles Addi R>L Shoulders: Full range of motion without pain. No tenderness, weakness, swelling, increased warmth or erythema. Hips: Full range of motion without pain. Hip bursa: Tenderness to palpation Knees: ?Full range of motion. ?No tenderness, swelling, increased warmth or erythema.?No effusion or crepitations Ankles: Full range of motion. ?No tenderness, swelling, increased warmth or erythema.? Feet: ?Negative squeeze test. ?No tenderness to palpation or swelling of the MTPs. Tender points:?Tenderness to palpation of the bilateral trapezius, supraspinatus, greater trochanters, anterior costochondral junctions, bilateral gluteal areas, bilateral suboccipital muscle insertions SKIN Skin intact without rashes. Results Reviewed Results Reviewed: No recent blood work within the past year DEXA 10/2024 FINDINGS: The bone mineral density of the lumbar spine is 0.843 with a T-score of -2.8, and a Z-score of -1.5. This represents a BMD change of 7.1% compared to the prior exam. This is statistically significant. The bone mineral density of the left total hip is 0.696 with a T-score of -2.5, and a Z-score of -1.5. This represents BMD change of 2.8% compared to the prior exam. This is not statistically significant. The bone mineral density of the left femoral neck is 0.714 with a T-score of -2.3, and a Z-score of -1.1. This represents BMD change of -0.7% compared to the prior exam. Assessment & Plan Assessment & Plan (1) Osteoporosis: Comment: DEXA 10/2022: AP Spine -3.3, Left femur neck -2.3, Left femur total -2.6 DEXA 10/2024: AP Spine -2.8, Left femur neck -2.3, Left femur total -2.5 PO Alendronate - dizziness IV Reclast 02/2024, complained of jaw pain x 2 weeks. No longer wishes to continue Risk factors: steroid use for her asthma Code(s): M81.0 - Age-related osteoporosis without current pathological fracture Category: Medical Qualifiers: Osteoporosis type: unspecified Presence of current pathological fracture: without current pathological fracture Qualified Code(s): M81.0 - Age-related osteoporosis without current pathological fracture Plan: #Osteoporosis Patient is a 64 year old female with severe osteoporosis, improved on bisphosphonates. Does not want to to continue with IV reclast Discussed prolia and patient is reluctant because of her history of allergic reactions but she is willing to try Plan - Prolia 60mg SC every 6 months - Labs today: CBC, CMP, ESR, CRP, Vitamin D - RTC in 6 months - Labs before visit: CBC, CMP, ESR, CRP, Vitamin D (2) Fibromyalgia, primary: Code(s): M79.7 - Fibromyalgia Category: Medical Plan: #Fibromyalgia Patient with fibromyalgia complaining of muscle tension. We will give her a 14 day course of cyclobenzaprine. Encouraged stretching Plan - Cylobenzaprine 5mg nightly x 14 days (3) Encounter for monitoring denosumab therapy: Code(s): Z51.81 - Encounter for therapeutic drug level monitoring; Z79.620 - medical referral coordinator (current) use of immunosuppressive biologic Plan: #Long-term use of Denosumab Discussed with patient the risks and benefits of denosumab (Prolia) for the management of their osteoporosis Benefits include improved bone density, decreased fracture risk Risks include rapid bone loss if denosumab stopped, osteonecrosis of the jaw especially in patients with poor oral hygiene/diabetes/use of glucocorticoids/age greater than 65 years, atypical femoral fractures, injection site reactions. Mild increased risk of infections due to RANKL on T helper cells, increased risk of hypocalcemia especially in CKD patients Keep vitamin-D at least 35 ng/mL Advised to delay non emergent dental procedures to toward the end of the 6 month cycle and if they plan to stop denosumab would need to continue antiresorptive to maintain the effects of denosumabe Plan I spent 30 minutes reviewing the record and labs, taking a history, examining the patient, discussing the treatment plan, ordering diagnostic work up and documenting in the medical record Orders: Orders Complete Blood Count Auto Diff Today M81.0 - Age-related osteoporosis without current pathological fracture C Reactive Protein Today M81.0 - Age-related osteoporosis without current pathological fracture Comprehensive Met. Panel Today M81.0 - Age-related osteoporosis without current pathological fracture Erythrocyte Sedimentation Rate Today M81.0 - Age-related osteoporosis without current pathological fracture Vitamin D 25-OH (D2 and D3) Today M81.0 - Age-related osteoporosis without current pathological fracture Complete Blood Count Auto Diff 6 Months E55.9 - Vitamin D deficiency, unspecified, M81.0 - Age-related osteoporosis without current pathological fracture Vitamin D 25-OH (D2 and D3) 6 Months E55.9 - Vitamin D deficiency, unspecified, M81.0 - Age-related osteoporosis without current pathological fracture Erythrocyte Sedimentation Rate 6 Months E55.9 - Vitamin D deficiency, unspecified, M81.0 - Age-related osteoporosis without current pathological fracture Comprehensive Met. Panel 6 Months E55.9 - Vitamin D deficiency, unspecified, M81.0 - Age-related osteoporosis without current pathological fracture C Reactive Protein 6 Months E55.9 - Vitamin D deficiency, unspecified, M81.0 - Age-related osteoporosis without current pathological fracture Medications: New cyclobenzaprine 5 mg PO BEDTIME 14 tabs 0RF M79.7 - Fibromyalgia Coding Level of Care Code Est Pt Level 4 (69478) Complex EM visit Add On G2211 Diagnoses Osteoporosis without current pathological fracture, unspecified osteoporosis type M81.0 Osteoporosis type: unspecified Presence of current pathological fracture: without current pathological fracture Fibromyalgia, primary M79.7 Encounter for monitoring denosumab therapy Z51.81; Z79.620
--- OUTSIDE RECORDS SUMMARY | 2024-12-30 15:38 | XMS_ITS | Encounter Summary ---
Author Organization [facility] Address [address] [place] [address] Care Team Providers Care Line O Scribe Operator Name Role Phone Iqra Nelson MD Primary Care Provider + Johnny Casanova PharmD Unavailable [phone] Toñito Caraballo Unavailable Unavailable Reason for Visit * Reason Comments Med Refill Encounter Details Date Type Department Care Team (Late st Contact Info) Description 04/22/2023 Refill [facility] [address] [place] [address] Toñito Caraballo FNP Social History Tobacco Use [...] documented as of this encounter Care Teams Line O Scribe Operator Relationship Specialty Start Date End Date Iqra Nelson MD [address] [place] [address] PCP - General Family Medicine 12/05/16 04/08/24 Johnny Casanova PharmD [address] [place] [address] Pharmacist Internal Medicine 09/26/22 Toñito Caraballo FNP [address] [place] [address] Nurse Practitioner Family Medicine 08/08/23 documented as of this encounter
--- OUTSIDE RECORDS SUMMARY | 2024-12-30 15:38 | XMS_ITS | Clinical Summary ---
Author Organization [employer] Address [address] [facility] 7t [place] [address] Care Team Providers Care Warehouse Lead Name Role Phone Johnny Casanova PharmD Unavailable [phone] Toñito Caraballo TIE BUCKER Unavailable Unavailable Allergies Active Allergy Reactions Criticality [...] diets. She wants a referral to the girl friday. Discussed re weight reduction options including exercise, life style modifications, diet, referral to offender job retention specialist. Discussed re lower calorie intake, increase [...] retiring, so any issues or concerns, contact [facility]. All her questions were answered [...] EST): Continue estrace cream and fu with [facility]. Refill sent to pharmacy. Assessment & Plan (10/09/2022 2:44 PM EST): Most likely secondary to atrophic vaginitis. -use estrogen cream daily x2 weeks and then 3 times per week. Pneumonia due to COVID-19 virus 08/24/2022 Polyp of cervix 08/24/2022 Assessment & Plan (03/26/2023 2:56 PM EDT): s/p resection by [facility], more than a year ago, last PAP was normal refer to [facility] second opinion due to persistent dyspareunia Postcoital bleeding 08/24/2022 Assessment & Plan (03/26/2023 3:04 PM EDT): See previous issue and refer to [facility] Pruritus 08/24/2022 Right upper quadrant pain 08/24/2022 [...] q2wk + albuterol PRN and FU w/ c java developer Decline flue and Covid IZ today, advised [...] Encounters Date Type Department Care Team Description 12/30/2024 Orders Only GENERIC EXTERNAL DATA DEPARTMENT Provider, Generic External Data 12/22/2024 Orders Only [facility] External Provider, [facility] 10/03/2024 Orders Only GENERIC EXTERNAL DATA DEPARTMENT [...] 02/17/2021 Influenza Vaccine (#1) 2024 Depression Monitoring 09/24/2024 03/24/2024, 024 Tobacco Screening 10/22/2024 10/22/2023 Depression Screening 03/24/2025 03/24/2024, 03/24/20 24 Dental X-Ray: Full Mouth 10/13/2025 10/12/2022 Pap [...] Procedure Name Priority Date/Time Associated Diagnosis Comments SED RATE BY MODIFIED WESTERGREN Routine 12/30/2024 1:04 PM EDT C-REACTIVE PROTEIN Routine 12/30/2024 1: 04 PM EDT COMPREHENSIVE METABOLIC PANEL Routine 12/30/2024 1:04 PM EDT CBC WITH AUTO DIFFERENTIAL Routine 12/30/2024 1:04 PM EDT NM HEART PERFUSION SPECT STRESS AND REST [...] Recently Relevant to Health Maintenance Results * CBC auto differential (12/30/2024 1:04 PM EDT) White Blood Count 5.0 4.8 - 10.8 X10*3/uL [facility] Red Blood Count 4.49 4.20 - 5.50 X10*6/uL [facility] Hemoglobin 13.0 12.0 - 16.0 g/dl [facility] Hematocrit 38.4 37.0 - 47.0 % [facility] Mean Corpuscular Volume 85.5 80.0 - 98.0 fL [facility] Mean Corpuscular Hemoglobin 29.0 27.0 - 33.0 pg [facility] Mean Corpuscular HGB Conc 33.9 31.0 - 35.0 g/dl [facility] Red Cell Distribution Width 11.8 11.0 - 16.0 % [facility] Platelet Count 191 160 - 400 X10*3/uL [facility] Mean Platelet Volume 11.2 9.4 - 12.3 fL [facility] Neutrophils Percent Auto 59.9 45 - 73 % [facility] Imm Gran Pct Auto 0.4 0.0 - 0.4 % [facility] Lymphocytes Percent Auto 30.6 20 - 40 % [facility] Monocytes Percent Auto 7.1 2 - 11 % [facility] Eosinophils Percent Auto 1.2 0 - 4 % [facility] Basophils Percent Auto 0.8 0 - 2 % [facility] NRBC Pct Auto 0.0 0.0 - 0.2 /100WBC [facility] Neutrophils Absolute Auto 3.0 2.0 - 8.3 x10*3/uL [facility] Imm Gran Abs Auto 0.02 0.00 - 0.03 X10*3/uL [facility] Lymphocytes Absolute Auto 1.5 1.2 - 4.9 X10*3/uL [facility] Monocytes Absolute Auto 0.4 0.1 - 1.2 X10*3/uL [facility] Eosinophils Absolute Auto 0.1 0.0 - 0.4 X10*3/uL [facility] Basophils Absolute Auto 0.0 0.0 - 0.2 X10*3/uL [facility] NRBC Abs Auto 0.000 0.0 - 0.012 X10*3/uL [facility] 12/30/2024 1:04 PM EDT 12/30/2024 2:05 PM EDT us Generic External Data Provider LAB BLOOD ORDERAB LES Final Result Performing Organization Address [facility]/ZIP Co de Phone Number [facility] [address] [place] [phone] * Sed Rate by Modified Elidaren (12/30/2024 1:04 PM EDT) Erythrocyte Sedimentation Rate 18 0 - 20 MM/HR [facility] Comment:Patients with polycy themia and many hemoglobin abnormalitiesmay have depressed sed rates whereas patients with anemiamay have elevated sed rates. 12/30/2024 1:04 PM EDT 12/30/2024 2:05 PM EDT us Generic External Data Provider LAB BLOOD ORDERAB LES Final Result [facility] [address] [place] [address] [phone] * NM heart perfusion SPECT stress and rest (12/22/2024 9:45 AM EDT) Anatomical Region Laterality Modality Body Nuclear Medicine 12/22/2024 9:45 AM EDT Narrative 12/23/2024 2:42 PM EDT ? [facility] ?[address] ?[place] [address] ?Nuclear Medicine Report ? Signed ? Patient: Marcos,Ada E ?MR#: [id number] ?? [id number] ? : 1960 ?Acct:[id number] ? Age/Sex: 64 / F ?ADM Date: 12/22/24 ? Loc: HO.CARD ? Attending Dr: Efren Rausch MD ? Ordering Physician: Efren Rausch MD ?? Date of Service: 12/22/24 ?? Procedure(s): NM fatou perf SPECT rest ?? str ?? Accession Number(s): [id number] ? cc: Iqra Nelson MD; Efren Rausch [...] DD/ 0945 ? TD/TT: 12/23/24 1200 ? Aircraft Structure Mechanic: ? Procedure Note Nikunj Butterfield - 12/23/2024 [place] [address] Nuclear Medicine Report Signed Patient: Yoselin Rodríguez EMR#: [id number] : 1Acct:[id number] Age/Sex: 64 / FADM Date: 12/22/24 Loc: JAJA Attending Dr: Efren Rausch MD Ordering Physician: Efren Rausch MD Date of Service: 12/22/24 Procedure(s): NM fatou perf SPECT rest str Accession Number(s): [id number] cc: Iqra Nelson MD; Efren Rausch MD [...] 12/23/24 1439 DD/ 0945 TD/TT: 12/23/24 1200 Aircraft Structure Mechanic: [facility] External Provider IMG NM PROCEDURES Final Result * BD DEXA Axial (10/30/2024 12:35 PM EST) Anatomical Region Laterality Modality Body Radiographic Carrol ging 10/30/2024 12:3 5 PM EST Narrative 10/30/2024 2:47 PM EST ? [facility] ? [address] ?[place] [address] ? Mammography Report ? Signed ? Patient: Marcos,Ada E ?MR#: [id number] ?? 233 ? : 1960 ?Acct:[id number] ? Age/Sex: 64 / F ?ADM Date: 02/13/25 ? Loc: HO.MAMMO ? Attending Dr: Maryann Joseph MD ? Ordering Physician: Maryann Joseph MD ?Results: ? Date of Service: 10/30/24 ?Follow Up: ? Procedure(s): XR DEXA axial skeleton ?? Accession Number(s): [id number] ? cc: Iqra Nelson MD; Maryann Joseph MD ? EXAMINATION: ??DXA BONE DENSITY AXIAL ? HISTORY: ??Estrogen deficiency ? TECHNIQUE: Greendizer Dual energy absorptiometry (DEXA) ?? of the [...] of the [employer]'s ?? [place] for Metabolic Bone Disease, a World Health Organization (WHO) ?? Collaborating Center. ? Electronically signed by: ??Mehran Evans MD ??10/30/2024 02:44 PM EST ?? RP ? Dictated By: ?Mehran Evans MD ? Signed By: ?<Electronically signed by Mehran Evans MD in OV> ?10/30/24 1444 ? DD/ 1235 ? TD/TT: 10/30/24 1255 ? Aircraft Structure Mechanic: ? Procedure Note Nikunj Butterfield - 10/30/2024 [facility] [address] [place] [address] Dr. [place], [place] [address] Mammography Report Signed Patient: Yoselin Rodríguez EMR#: [id number] : 1960cct:[id number] Age/Sex: 64 / FADM Date: 10/30/24 Loc: HO.MAMMO Attending Dr: Maryann Joseph MD Ordering Physician: Maryann Josephults: Date of Service: 10/30/24Follow Up: Procedure(s): XR DEXA axial skeleton Accession Number(s): [id number] cc: Iqra Nelson MD; Maryann Joseph MD EXAMINATION: DXA BONE DENSITY AXIAL HISTORY: Estrogen deficiency TECHNIQUE: Greendizer Dual energy absorptiometry (DEXA) of the lumbar [...] of the [employer]'s [place] for Metabolic Bone Disease, a World Health Organization (WHO) Collaborating Center. Electronically signed by: Mehran Evans MD 10/30/2024 02:44 PM EST Dictated By: Mehran Evans MD Signed By: <Electronically signed by Mehran Evans MD in OV> 10/30/24 1444 DD/ 1235 TD/TT: 10/30/24 1255 Aircraft Structure Mechanic: [facility] External Provider IMG DXA PROCEDURES Final Result * Gram stain (10/03/2024 12:00 AM EST) 10/03/2024 10/03/2024 Comment:Sputum Narrative [facility] - 10/06/2024 9:08 AM EST Gram stain results: 4+ polys 2+ epithelial cells 3+ Gram-positive cocci 3+ Gram-positive rods 2+ Gram-negative rods Sputum Culture BAP Sputum Culture 4+ mixed upper-resp lara Haemophilus parainfluenzae B-Lac Susc (reported) Beta-lactamase not produced; suggests PEN/AMP susceptibility Quant Org ID 3+ Specimen Source: Sputum Generic External Data Provider LAB MICROBIOLOGY - GENERAL ORDERABLES Final Result [facility] [address] [place] [address] [phone] * Lipid Panel with Reflex to Direct LDL (11/08/2023 12:00 AM EST) Triglycerides 128 <150 mg/dL [facility] Comment:Desirable Triglyceri de: less than 150 mg/dLBorderline High Triglyceride 150-199 mg/dLHigh Triglyceride: 200-499 mg/dLVery High Triglyceride: greater than or equal to 5OO mg/dL Cholesterol 169 <200 mg/dL [facility] Comment:Desirable Cholestero l: less than 200 mg/dLBorderline High Cholesterol: 200-239 mg/dLHigh Cholesterol: greater than 239 mg/dL LDL Cholesterol Calculated 82 <100 mg/dL [facility] Comment:Desirable LDL: less than 100 mg/dLNear Optimal/Above Optimal LDL: 110- 129 mg/dLBorderline High LDL: 130-159 mg/dLHigh LDL: 160-189 mg/dLVery High LDL: greater than or equal to 190 mg/dL HDL Cholesterol 62 >40 mg/dL [facility] Comment:Desirable HDL: great er than 40 mg/dL Note: This HDL assay may give artificially low results in patients with liver disease. Blood 11/08/2023 11/08/2023 Iqra Nelson MD LAB BLOOD ORDERABLES Fin al Result [facility] [address] [place] [phone] * HPV mRNA E6/E7 w/Reflex to HPV Genotypes 16, 18/45 (05/31/2023 1:12 PM EDT) HPV nRNA E6/E7 Not Detected Not Detected [facility] Comment:Methodology: Transcr iption-Mediated AmplificationThis assay detects E6/E7 viral messenger RNA (mRNA) from 14high-risk HPV types (16,18,31,33,35,39,45,51,52,56,58,59,66,68).Cervical sources are required for HPV testing.If a vaginal source from a patient who has had atotal hysterectomy with removal of cervix wassubmitted, please contact the testing laboratoryfor alternative testing options.For additional information, please refer tohttp://education.AeroFS/faq/TWH032g6(This link if provided for information/educational purposes only.)THIS TEST WAS PERFORMED AT:[facility] [place] [phone] HARRISON MD HPV mRNA E6/E7 [facility] HPV 16 RNA [facility] HPV 18/45 RNA [facility] 05/31/2023 1:1 2 PM EDT 06/01/2023 9:00 AM EDT [facility] External Provider LAB CYT OLOGY ORDERABLES Final Result Performing Organization Address City/[facility]/ZIP Co de Phone Number [facility] [address] [place] [address] [phone] * Pap Smear (05/31/2023 1:12 PM EDT) 05/31/2023 1:12 PM EDT 06/01/2023 9:00 AM EDT Narrative [facility] - 06/12/2023 1:57 PM EDT ----- ------- Name: Yoselin Rodríguez ?Age/Sex: 62/F ? : 1960 Unit#: [id number] ?? Attend Dr: Ale Francisco CNM ?Re05/31/23 ?Status: DEP REF ? Location: HO.LNP ?Disch: ? ----- ------- SPEC : [id number] ?RECD: 06/01/23-899 ? STATUS: ??SOUT ? REQ NUM: [id number] ? AGATHA: 05/31/23-1311 ? SUBM DR: Ale [...] 66, 68) ? HPV testing performed by [facility], [place], [place]. ??See reference laboratory ?? portion of the EMR for entire report. ?Clinical Information LMP: No menses Previous PAP test: 07/19/21, abnormal Other history: +HPV, personal history of other infectious and parasitic diseases ? Material Received ?? ThinPrep-Cervical Copies To: ?? Iqra Nelson MD ?? [address] [facility] ?? [place] [address] ? Ale Francisco CNM ?? [address] [place] [address] [address] ?? [place] [address] ?? [phone] ----- ------- Signed (signature on file) Yajaira Dash 06/12/23 1357 ? ----- ------- ? END OF REPORT ? [facility] External Provider LAB CYT OLOGY ORDERABLES Final Result Performing Organization Address City/State/[facility] Co de Phone Number [facility] [address] [place] [phone] * Mammography Report 1 (04/21/2021 1:15 [...] Most Recently Relevant to Health Maintenance Insurance Care Teams Warehouse Lead Relationship Specialty Start Date End Date Johnny Casanova, RachelD [address] [place], [place] Pharmacist Internal Medicine 09/26/22 Toñito Caraballo FNP [address] [place], [place] Nurse Practitioner Family Medicine 08/08/23
--- OUTSIDE RECORDS SUMMARY | 2024-12-30 15:38 | XMS_ITS | Encounter Summary ---
Author Organization [employer] Address [address] [facility] 7t [place] [address] Care Team Providers Care Real Estate Administrator Name Role Phone Iqra Nelson MD Primary Care Provider + Johnny Casanova PharmD Unavailable [phone] Toñito Caraballo INSTRUCTIONAL TECHNOLOGY TEACHER Unavailable Unavailable Encounter Details Date Type Department Care Team ([facility] st Contact Info) Description 02/12/2024 Orders Only [facility] [address] [place] [address] Provider, MD Antoine Social History Tobacco Use [...] documented as of this encounter Care Teams Real Estate Administrator Relationship Specialty Start Date End Date Iqra Nelson MD [address] [place] [phone] PCP - General Family Medicine 12/05/16 04/08/24 Johnny Casanova PharmD [address] [place] [phone] Pharmacist Internal Medicine 09/26/22 Toñito Caraballo FNP [address] [place] [address] Nurse Practitioner Family Medicine 08/08/23 documented as of this encounter
--- OUTSIDE RECORDS SUMMARY | 2024-12-30 15:38 | XMS_ITS | Encounter Summary ---
Author Organization [employer] Address [address] [facility] 7t [place] [address] Care Team Providers Care Checker/Stocker Name Role Phone Iqra Nelson MD Primary Care Provider + Johnny Casanova PharmD Unavailable [phone] Toñito Caraballo Unavailable Unavailable Reason for Visit * Reason Onset Date Comments Med Refill Appointment 10/11/2023 LVM-Re: her apt for today as [id number] @2pm Encounter Details Date Type Department Care Team (Late st Contact Info) Description 10/11/2023 Refill [facility] [address] [place] [address] Toñito Caraballo FNP Social History Tobacco Use [...] documented as of this encounter Care Teams Checker/Stocker Relationship Specialty Start Date End Date Iqra Nelson MD [address] [place] [phone] PCP - General Family Medicine 12/05/16 04/08/24 Johnny Casanova PharmD [address] [place] [phone] Pharmacist Internal Medicine 09/26/22 Toñito Caraballo FNP [address] [place] [address] Nurse Practitioner Family Medicine 08/08/23 documented as of this encounter
--- OUTSIDE RECORDS SUMMARY | 2024-12-30 15:38 | XMS_ITS | Encounter Summary ---
Author Organization [employer] [facility] Address [address] [facility] 7t [place] [address] Care Team Providers Care Optometrist Assistant Name Role Phone Iqra Nelson MD Primary Care Provider + Johnny Casanova PharmD Unavailable [phone] Toñito Caraballo CAR HOSTLER Unavailable Unavailable Encounter Details Date Type Department Care Team ([facility] st Contact Info) Description 10/10/2022 Orders Only [facility] [address] [place], [place] [phone] Iqra Nelson MD [address] [place], [place] [phone] Vitamin D deficiency (Primary Dx); Senile osteoporosis [...] documented as of this encounter Care Teams Optometrist Assistant Relationship Specialty Start Date End Date Iqra Nelson MD [address] [place] [phone] PCP - General Family Medicine 12/05/16 04/08/24 Johnny Casanova, Ti [address] [place] [phone] Pharmacist Internal Medicine 09/26/22 Toñito Caraballo FNP [address] [place] [address] Nurse Practitioner Family Medicine 08/08/23 documented as of this encounter
--- OUTSIDE RECORDS SUMMARY | 2024-12-30 15:38 | XMS_ITS | Encounter Summary ---
Author Organization [employer] [facility] Address 75 [facility] 7t [place] [address] Care Team Providers Care Lithograph Designer Name Role Phone Iqra Nelson MD Primary Care Provider + Johnny Casanova PharmD Unavailable [phone] Toñito Caraballo Unavailable Unavailable Reason for Visit * Reason Comments Med Refill Encounter Details Date Type Department Care Team (Late st Contact Info) Description 02/21/2023 Refill [facility] [address] [place] [address] Toñito Caraballo FNP Social History Tobacco Use [...] documented as of this encounter Care Teams Lithograph Designer Relationship Specialty Start Date End Date Iqra Nelson MD [address] [place] [address] PCP - General Family Medicine 12/05/16 04/08/24 Johnny Casanova PharmD [address] [place] [address] Pharmacist Internal Medicine 09/26/22 Toñito Caraballo FNP [address] [place] [address] Nurse Practitioner Family Medicine 08/08/23 documented as of this encounter
--- OUTSIDE RECORDS SUMMARY | 2024-12-30 15:38 | XMS_ITS | Encounter Summary ---
Author Organization [employer] Address [address] [facility] 7t [place] [address] Care Team Providers Care Document Clerk Name Role Phone Iqra Nelson MD Primary Care Provider + Johnny Casanova PharmD Unavailable [phone] Toñito Caraballo Unavailable Unavailable Reason for Visit * Reason Comments Med Refill Encounter Details Date Type Department Care Team (Late st Contact Info) Description 07/20/2023 Refill [facility] MED[facility]INE [address] [place] [address] Toñito Caraballo FNP Social History Tobacco Use [...] documented as of this encounter Care Teams Document Clerk Relationship Specialty Start Date End Date Iqra Nelson MD [address] [place] [address] PCP - General Family Medicine 12/05/16 04/08/24 Johnny Casanova PharmD [address] [place] [address] Pharmacist Internal Medicine 09/26/22 Toñito Caraballo FNP [address] [place] [address] Nurse Practitioner Family Medicine 08/08/23 documented as of this encounter
--- OUTSIDE RECORDS SUMMARY | 2024-12-30 15:38 | XMS_ITS | Data Portability ---
Author Organization [facility], Or in - [facility] Address [address] [place] [phone] Care Team Providers Care Printed Circuit Board Drafter Name Role Phone [facility] OTHER [phone] [facility] OTHER Assessment Encounter Date Assessment Date Assessment LastModified by Organization Details LastModified Time 05/05/2023 05/05/2023 I provided real -time medical direction via phone for this encounter, and was available for additional phone based assistance as needed. I have reviewed and agree with the Assessment and Plan as documented by the Inspecting Supervisor [email or web address] Not available 05/05/2023 17:13:47 08/27/2024 08/27/2024 service [...] 2 Ag, QL IA, respiratory specimen 2023 [facility], [address] [place] [address], [phone] 19:41:18 rapid flu (A+B) [address], [phone] 19:41:57 Referral None recorded. Procedures None recorded. Surgeries None recorded. Imaging None recorded. Medication Orders prednisone 20 mg tablet 2023 024 [id number] [address] [place] [address], [address], 4 16:22:59 prednisone 20 mg tablet 2023 024 [facility] [address] [place] [address], [address], 4 16:24:53 benzonatate 100 mg capsule 2023 024 [facility], [address] [place] [address], [address], 4 16:24:53 azithromyci n 250 mg tablet 2022 023 [facility], [address] [place] [address], [address], 3 17:11:16 Augmentin 875 mg-125 mg tablet 2022 023 [facility], [address] [place] [address], [address], 3 16:07:33 metronidazo le 500 mg tablet 2021 022 [id number] [address] [place] [address], [address], 2 18:29:57 metronidazo le 500 mg tablet 2021 022 krallo Not available 2 09:06:30 Patient TargetsNo targets recorded. Patient InstructionsNo instructions recorded. Reason for Referral None Reported. Results Created Date Observation Date Name Description Value Unit Range Abnormal Flag Note LastModifiedBy Organization Detail LastModifiedTime 08/27/20 24 08/27/2024 rapid flu (A+B) Flu negati ve Not Available [facility] ed [address] [place] [address], [phone] 08/27/2024 19:14:26 08/27/20 24 08/27/2024 rapid SARS CoV 2 Ag, QL IA, respi rator y speci men rapid SARS CoV 2 Ag, QL IA, respiratory specimen negati ve Not Available Main - [facility] ed [address] [place] [address], [phone] 08/27/2024 19:14:26 Result Notes None recorded. Medical [...] Not available Not available Not available 05/05/2023 23314 RxNorm Not Available [facility] - production 4 03:47:03 3052 ibuprofen medicatio n hives Not available Not available 05/05/2023 5640 RxNorm SOB Karen Giraldo MD [address] [place] [address],[address], [place], [phone], [employer] 3 17:17:13 3053 Augmentin medicatio n dyspnea Not available Not available 05/05/2023 72637 2 RxNorm Urtic aria Karen Giraldo MD [address] [place] [address],[address], [place], [phone], [employer] 3 17:18:03 Medications Name Sig Start Date [...] Not Available No t Available [employer] Specialist active Not Available Not Available No t [...] 3 98 % 98 % 71 /min 01633.8 8 g 97.1 [degF] 16 /min 181 [...] Address Organization Details Last Updated DateTime 05/05/2023 51692.82 g Lexy Mendoza [address] [place] [address],[address], [place], [phone], [employer] 05/05/2023 17:09:15 Date Recorded Oxygen saturation Oxygen saturation in Arterial blood by Pulse oximetry Body weight Respiratory rate Heart rate Body temperature Systolic blood pressure Diastolic blood pressure Provider Name and Address Organization Details Last Updated DateTime 4 99 % 99 % 97170.5 36 g 16 /min 82 /min 98 [degF] 164 mm[Hg] 72 mm[Hg] Not Available [facility] [employer] 4 16:20:14 Date Recorded Body temperature Heart rate Respiratory rate Oxygen saturation Oxygen saturation in Arterial blood by Pulse oximetry Systolic blood pressure Diastolic blood pressure Provider Name and Address Organization Details Last Updated DateTime 2 98.6 [degF] 80 /min 16 /min 100 % 100 % 161 mm[Hg] 78 mm[Hg] Orlin Ruiz MD [address] [facility],[address], [place], [phone], [employer] 2 18:30:24 Social History None recorded. Functional [...] 1109 Orlin Ruiz MD Main - [facility] [address] [place] [phone] 01/05/2022 18:15:37 06/07/2022 14:14:50 Acute pelvic pain 660605336 R10.2 Reports history of cramping after cervical polyp removal. Reports spotting, on re-assessm ent with outdoor education teacher, passing fishy-sme lling white discharge. No abdominal tenderness on outdoor education teacher examinatio n to suggest referred intra-abdo mary process. Reports symptoms are not consistent with UTI, so LE on UA likely represents inflammati on versus contaminat ion. Unable to perform pelvic examinatio n with outdoor education teacher so difficult to assess for other pelvic pathology. Would benefit from close follow-up by physician who performed the procedure (Dr. Goldsmith?? ) Will treat empiricall y with Flagyl for BV in the interim. 33347 Andrea Thorpe MD Main - [facility] [address] [place] [phone] 04/24/2023 16:05:20 04/24/2023 23:29:29 Acute otitis media 0855118 H66.92 Patient with history of adult ear infection presents with typical symptoms of ear pain. Inspecting Supervisor examinatio n consistent with ear infection. Will treat with augmentin. They can pick it up tonight, so did not give anything via outdoor education teacher. 11592 Karen Giraldo MD Main - [facility] [address] [place] [phone] 05/05/2023 17:08:26 05/07/2023 07:15:01 Acute otitis media 8631137 H66.92 Patient reports she has had azithromyc [...] or middle ear/ inner ear fluid drain 00609 Domi Garladn MD [facility] [employer] [address] [place] [phone] 08/27/2024 16:20:07 08/28/2024 00:15:45 Acute exacerbation of chronic obstructive pulmonary disease [id number] J44.1 Health Concerns Section Related Observation LastModified by Organization Detai ls LastModified Time None Recorded Concern Status LastModified by Organization Details LastModified Time None Recorded Advance Directives Directive None Recorded Payers Encounter Date Sequence Insurance Name Policy Number Policy Barrow Covered Member ID Barrow Member ID Guarantor Name 01/05/2022 1 [facility] - DOS PRIOR TO 2022 - DUAL ELIGIBLE (MEDICARE REPLACEMENT/AD VANTAGE - HMO) Yoselin Rodríguez [id number] Yoselin Rodríguez 04/24/2023 1 [employer] C[employer] - DOS ON OR AFTER 2022 - DUAL ELIGIBLE - RETIREMENT OPTIONS AND ONE CARE (MEDICARE REPLACEMENT/AD VANTAGE - HMO) Yoselin Rodríguez [id number] Yoselin Rodríguez 05/05/2023 1 [email or web address] C[employer] - DOS ON OR AFTER 2022 - DUAL ELIGIBLE - RETIREMENT OPTIONS AND ONE CARE (MEDICARE REPLACEMENT/AD VANTAGE - HMO) Yoselin Rodríguez [id number] Yoselin Rodríguez 08/27/2024 1 [facility] - DOS ON OR AFTER 2022 - DUAL ELIGIBLE - RETIREMENT OPTIONS AND ONE CARE (MEDICARE REPLACEMENT/AD VANTAGE - HMO) Yoselin Rodríguez [id number] Yoselin Rodríguez Notes Date Note Type Note [...] UTI. Orlin Ruiz MD [address] [place] [address],[address], [place], [phone], [facility] 01/05/2022 18:31:02 04/24/2023 text/html HPI: Severe left ear ache .................... .................... .................... .................... .................... .................... .................... . CRC Nursing Assessment: Comments: [facility] triage nurse calling on behalf of member with request for MIH visit for complaints of outer ear discomfort for 3 days Aware MIH visit does not include inner ear eval. Request instED visit to eval unsure fever/chills Verify member name/- Andrea Thorpe MD [address] [place] [address],[address] [facility], [place], [phone] [employer] 04/24/2023 16:07:52 05/05/2023 text/html HPI: mbr with know ear infection for two weeks/nasal congestion/moderate pain, recent ED visit ordered Fluconazole, mbr looking for oral antibiotics, requesting MIH. Protocol Used: Ear - Discharge Protocol-Based Disposition: Consider instED, [facility] Community Clinician, or PCP visit within [...] .................... .................... .................... .................... .................... .................... ........... Inspecting Supervisor Note From Estrada Jain: Dispatched to the [...] Patient noted to have a steady gait. [facility] contacted to discuss patient presentation, complaints, and clinical findings. [facility] orders Azythromycin 500mg [...] Fulfilled Karen Giraldo MD [address] [place] [address],[address], [place], [phone], [employer] 05/05/2023 22:29:41 08/27/2024 text/html HPI: Member calling [...] any additional information to process this visit. Inspecting Supervisor Organization Information for Shantanu Olson [employer] Legal Name: [facility] Address: [address] [place] [address] Home Security Alarm Installer: Zachary Heredia MD [place] No.: [id number] Inspecting Supervisor POC Test Results from Shantanu Olson [employer] Rapid COVID antigen (16:14:44) COVID: - Attachments uploaded as part of this test result can be found under Documents section. Rapid influenza antigen (16:14:45) Flu: - Attachments uploaded as part of this test result can be found under Documents section. .................... .................... .................... .................... .................... .................... .................... . Inspecting Supervisor Note From Shantanu Olson: Pt co dry [...] clear bilaterally, Covid and flu swab neg. [facility] Dada contacted and 20mg prednisone given PO, right meds, dose, date and route. RX called in for prednisone and benzonatate and continue with nebulizer treatments.. Pt education on signs indicating the ER. Pt advised to continue with mechanical drawing teacher appt. Pt advised to follow up with PCP. .................... .................... .................... .................... .................... .................... .................... . [facility] Consulted: Domi Garland .................... .................... .................... .................... .................... .................... .................... . Disposition: Viviana Garland MD [address] [facility],[address], [place], [phone], [employer] 08/27/2024 19:14:58 OBGyn Episode No OBEpisode recorded.
--- OUTSIDE RECORDS SUMMARY | 2024-12-30 15:38 | XMS_ITS | Encounter Summary ---
Author Organization [email or web address] [facility] Address [address] [facility] [address]t [place] [address] Care Team Providers Care Flat Cutter Name Role Phone Iqra Nelson MD Primary Care Provider + Johnny Casanova PharmD Unavailable [phone] Toñito Caraballo COAL HAULER Unavailable Unavailable Encounter Details Date Type Department Care Team ([facility] st Contact Info) Description 03/08/2023 Abstract [facility] MEDICINE [address] [place] [address] Iqra Nelson MD [address] [place] [address] Social History Tobacco Use Types Packs/Day Years [...] documented as of this encounter Care Teams Flat Cutter Relationship Specialty Start Date End Date Iqra Nelson MD [address] [place] [address] PCP - General Family Medicine 12/05/16 04/08/24 Johnny Casanova, RachelD [address] [place] [phone] Pharmacist Internal Medicine 09/26/22 Toñito Caraballo FNP [address] [place] [address] Nurse Practitioner Family Medicine 08/08/23 documented as of this encounter
--- OUTSIDE RECORDS SUMMARY | 2024-12-30 15:38 | XMS_ITS | Encounter Summary ---
Author Organization [facility] Address [address] [facility] 7t [place] [address] Care Team Providers Care Brand Executive Name Role Phone Iqra Nelson MD Primary Care Provider + Johnny Casanova PharmD Unavailable [phone] Toñito Caraballo LOT WORKER Unavailable Unavailable Encounter Details Date Type Department Care Team ([facility] st Contact Info) Description 09/26/2022 Orders Only [facility] MEDICINE [address] [place] [address] Johnny Casanova, PharmD [address] [place] [address] Social History Tobacco Use Types Packs/Day Years [...] as of this encounter Care Teams Brand Executive Relationship Specialty Start Date End Date Iqra Nelson MD [address] [place] [address] PCP - General Family Medicine 12/05/16 04/08/24 Johnny Casanova, PharmD [address] [place] [address] Pharmacist Internal Medicine 09/26/22 Toñito Caraballo FNP [address] [place] [address] Nurse Practitioner Family Medicine 08/08/23 documented as of this encounter
--- OUTSIDE RECORDS SUMMARY | 2024-12-30 15:38 | XMS_ITS | Encounter Summary ---
Author Organization [employer] Address [address] [facility] [address]t [place] [address] Care Team Providers Care Lead Php Developer Name Role Phone Iqra Nelson MD Primary Care Provider + Johnny Casanova PharmD Unavailable [phone] Toñito Caraballo Unavailable Unavailable Reason for Visit * Reason Comments Med Refill Encounter Details Date Type Department Care Team (Late st Contact Info) Description 02/26/[address] [facility] MEDICINE [address] [place] [address] Toñito Caraballo FNP Major depressive disorder, recurrent, [...] Diagnoses Diagnosis Major depressive disorder, recurrent, moderate ([facility]) Major depressive disorder, recurrent episode, moderate documented in this encounter Additional Health Concerns Assessment Noted Time PHQ-9 Depression Total Score: 10 023 3:45 PM EDT documented as of this encounter Care Teams Lead Php Developer Relationship Specialty Start Date End Date Iqra Nelson MD [address] [place] [address] PCP - General Family Medicine 12/05/16 04/08/24 Johnny Casanova, RachelD [address] [place] [phone] Pharmacist Internal Medicine 09/26/22 Toñito Caraballo FNP [address] [place] [address] Nurse Practitioner Family Medicine 08/08/23 documented as of this encounter
--- OUTSIDE RECORDS SUMMARY | 2024-12-30 15:38 | XMS_ITS | Encounter Summary ---
Author Organization [employer] Address [address] [facility] 7[address] [place] [address] Care Team Providers Care Service Shop Foreman Name Role Phone Iqra Nelson MD Primary Care Provider + Johnny Casanova PharmD Unavailable [phone] Toñito Caraballo Unavailable Unavailable Reason for Visit * Reason Comments Med Refill Encounter Details Date Type Department Care Team (Late st Contact Info) Description 12/28/2022 Refill [facility] MEDICINE [address] [place] [address] Toñito Caraballo FNP Major depressive disorder, recurrent, [...] Diagnoses Diagnosis Major depressive disorder, recurrent, moderate ([facility]) Major depressive disorder, recurrent episode, moderate documented in this encounter Additional Health Concerns Assessment Noted Time PHQ-9 Depression Total Score: 16 023 1:04 PM EDT documented as of this encounter Care Teams Service Shop Foreman Relationship Specialty Start Date End Date Iqra Nelson MD [address] [place] [address] PCP - General Family Medicine 12/05/16 04/08/24 Johnny Casanova, Ti [address] [place] [phone] Pharmacist Internal Medicine 09/26/22 Toñito Caraballo FNP [address] [place] [address] Nurse Practitioner Family Medicine 08/08/23 documented as of this encounter
--- OUTSIDE RECORDS SUMMARY | 2024-12-30 15:38 | XMS_ITS | Encounter Summary ---
Author Organization [employer] Address [address] [facility] 7t [place] [address] Care Team Providers Care Cement Mason Helper Name Role Phone Johnny Casanova PharmD Unavailable [phone] Toñito Caraballo DATA COLLECTION INTERVIEWER Unavailable Unavailable Encounter Details Date Type Department Care Team ([facility] Contact Info) Description 12/30/2024 Orders Only GENERIC EXTERNAL DATA [...] as of this encounter Plan of Treatment Pending Results Name Type Priority Associated Diagnoses Date /Time Comprehensive Metabolic Panel Lab Routine 12/30/2024 1:04 PM EDT C-reactive Protein Lab Routine 2024 1:04 PM EDT documented as of this encounter Goals Goal Patient Goal Type Associated Problems Recent Progress Patient-Stated? Author Blood Pressure < 150/90 Blood Pressure 155/76( 024 9:13 AM EDT) No Johnny Casanova, PharmLuis Armando Record your blood pressure once per day Blood Pressure No Johnny Casanova PharmD documented as of this encounter Procedures Procedure Name Priority Date/Time Associated Diagnosis Comments CBC WITH AUTO DIFFERENTIAL Routine 12/30/2024 1:04 PM EDT SED RATE BY MODIFIED WESTERGREN Routine 12/30/2024 1:04 PM EDT C-REACTIVE PROTEIN Routine 12/30/2024 1: 04 PM EDT COMPREHENSIVE METABOLIC PANEL Routine 12/30/2024 1:04 PM EDT documented in this encounter Results * Sed Rate by Modified Westergren (12/30/2024 1:04 PM EDT) Erythrocyte Sedimentation Rate 18 0 - 20 MM/HR [facility] Comment:Patients with polycy themia and many hemoglobin abnormalitiesmay have depressed sed rates whereas patients with anemiamay have elevated sed rates. 12/30/2024 1:04 PM EDT 12/30/2024 2:05 PM EDT us Generic External Data Provider LAB BLOOD ORDERAB LES Final Result [facility] [address] [place] [address] [place] [address] [phone] * CBC auto differential (12/30/2024 1:04 PM EDT) White Blood Count 5.0 4.8 - 10.8 X10*3/uL [facility] Red Blood Count 4.49 4.20 - 5.50 X10*6/uL [facility] Hemoglobin 13.0 12.0 - 16.0 g/dl [facility] Hematocrit 38.4 37.0 - 47.0 % [facility] Mean Corpuscular Volume 85.5 80.0 - 98.0 fL [facility] Mean Corpuscular Hemoglobin 29.0 27.0 - 33.0 pg [facility] Mean Corpuscular HGB Conc 33.9 31.0 - 35.0 g/dl [facility] Red Cell Distribution Width 11.8 11.0 - 16.0 % [facility] Platelet Count 191 160 - 400 X10*3/uL [facility] Mean Platelet Volume 11.2 9.4 - 12.3 fL [facility] Neutrophils Percent Auto 59.9 45 - 73 % [facility] Imm Gran Pct Auto 0.4 0.0 - 0.4 % [facility] Lymphocytes Percent Auto 30.6 20 - 40 % [facility] Monocytes Percent Auto 7.1 2 - 11 % [facility] Eosinophils Percent Auto 1.2 0 - 4 % [facility] Basophils Percent Auto 0.8 0 - 2 % [facility] NRBC Pct Auto 0.0 0.0 - 0.2 /100WBC [facility] Neutrophils Absolute Auto 3.0 2.0 - 8.3 x10*3/uL [facility] Imm Gran Abs Auto 0.02 0.00 - 0.03 X10*3/uL [facility] Lymphocytes Absolute Auto 1.5 1.2 - 4.9 X10*3/uL [facility] Monocytes Absolute Auto 0.4 0.1 - 1.2 X10*3/uL [facility] Eosinophils Absolute Auto 0.1 0.0 - 0.4 X10*3/uL [facility] Basophils Absolute Auto 0.0 0.0 - 0.2 X10*3/uL [facility] NRBC Abs Auto 0.000 0.0 - 0.012 X10*3/uL [facility] 12/30/2024 1:04 PM EDT 12/30/2024 2:05 PM EDT us Generic External Data Provider LAB BLOOD ORDERAB LES Final Result [facility] [address] [place] [address] [phone] documented in this encounter Visit Diagnoses Not on filedocumented in this encounter Additional Health Concerns Assessment Noted Time PHQ-9 Depression Total Score: 9 03/24/20 24 9:50 AM EDT documented as of this encounter Care Teams Cement Mason Helper Relationship Specialty Start Date End Date Johnny Casanova, Ti [address] [place] [address] Pharmacist Internal Medicine 09/26/22 Toñito Caraballo FNP [address] [place] [address] Nurse Practitioner Family Medicine 08/08/23 documented as of this encounter
== END 2024-12-30 13:46 | disposition home or self-care (01) ==
LOC: HO.RHE 12:49
PROVIDERS: PCP Internal Medicine; Visit Provider Student in an Organized Health Care Education/Training Program
DX: M81.0 Age-related osteoporosis without current pathological fracture (principal); M79.7 Fibromyalgia; Z51.81 Encounter for therapeutic drug level monitoring; Z79.620 Long term (current) use of immunosuppressive biologic
CPT/HCPCS: 99214; G2211

== ENCOUNTER 2024-12-30 12:49 | Outpatient (REF) | payer OTHER, SELFPAY ==
[2024-12-30 14:07] LABS: MANUAL DIFF FLAG NO
[2024-12-30 14:18] LABS: Basophils Percent Auto 0.8 % (0-2); Eosinophils Absolute Auto 0.1 X10*3/uL (0.0-0.4); Eosinophils Percent Auto 1.2 % (0-4); Hematocrit 38.4 % (37.0-47.0); Imm Gran Abs Auto 0.02 X10*3/uL (0.00-0.03); Imm Gran Pct Auto 0.4 % (0.0-0.4); Lymphocytes Absolute Auto 1.5 X10*3/uL (1.2-4.9); Lymphocytes Percent Auto 30.6 % (20-40); Mean Corpuscular HGB Conc 33.9 g/dl (31.0-35.0); Mean Corpuscular Volume 85.5 fL (80.0-98.0); Mean Platelet Volume 11.2 fL (9.4-12.3); Monocytes Absolute Auto 0.4 X10*3/uL (0.1-1.2); Monocytes Percent Auto 7.1 % (2-11); Neutrophils Percent Auto 59.9 % (45-73); Platelet Count 191 X10*3/uL (160-400); Red Blood Count 4.49 X10*6/uL (4.20-5.50); Red Cell Distribution Width 11.8 % (11.0-16.0)
[2024-12-30 14:50] LABS: Alanine Aminotransferase 35 U/L (0-31); Anion Gap 13 (12-20); Aspartate Amino Transferase 36 U/L (5-31); Bilirubin Total 0.6 mg/dL (0.0-1.0); Blood Urea Nitrogen 17 mg/dL (9-16); C Reactive Protein 1.08 mg/dL (< or = 0.50); Carbon Dioxide 28 mmol/L (22-29); Chloride 110 mmol/L (96-108); Estimated Glomerular Filt Rate > 60; Glucose Random 92 mg/dL (60-115); Potassium 4.8 mmol/L (3.3-5.1); Sodium 146 mmol/L (135-145)
[2024-12-30 14:56] LABS: Erythrocyte Sedimentation Rate 18 MM/HR (0-20)
--- OUTSIDE RECORDS SUMMARY | 2024-12-30 17:07 | XMS_ITS | Encounter Summary ---
Author Organization [employer] Address [address] [facility] [address]t [place] [address] Care Team Providers Care Gut Dropper Name Role Phone Iqra Nelson MD Primary Care Provider + Johnny Casanova PharmD Unavailable [phone] Toñito Caraballo TRUSS MAKER Unavailable Unavailable Encounter Details Date Type Department Care Team ([facility] st Contact Info) Description 02/12/2024 Orders Only [facility] MEDICINE [address] [place] [address] Provider, MD Antoine Social History Tobacco Use [...] documented as of this encounter Care Teams Gut Dropper Relationship Specialty Start Date End Date Iqra Nelson MD [address] [place] [address] PCP - General Family Medicine 12/05/16 04/08/24 Johnny Casanova PharmD [address] [place] [address] Pharmacist Internal Medicine 09/26/22 Toñito Caraballo FNP [address] [place] [address] Nurse Practitioner Family Medicine 08/08/23 documented as of this encounter
--- OUTSIDE RECORDS SUMMARY | 2024-12-30 17:07 | XMS_ITS | Clinical Summary ---
Author Organization [employer] Address [address] [facility] 7t [place] [address] Care Team Providers Care Fashion Coordinator Name Role Phone Johnny Casanova PharmD Unavailable [phone] Toñito Caraballo QUILL FIXER Unavailable Unavailable Allergies Active Allergy Reactions Criticality [...] diets. She wants a referral to the photonics engineer. Discussed re weight reduction options including exercise, life style modifications, diet, referral to software support specialist. Discussed re lower calorie intake, increase [...] retiring, so any issues or concerns, contact [facility]. All her questions were answered [...] EST): Continue estrace cream and fu with OPTOMETRY TEACHER. Refill sent to pharmacy. Assessment & Plan (10/09/2022 2:44 PM EST): Most likely secondary to atrophic vaginitis. -use estrogen cream daily x2 weeks and then 3 times per week. Pneumonia due to COVID-19 virus 08/24/2022 Polyp of cervix 08/24/2022 Assessment & Plan (03/26/2023 2:56 PM EDT): s/p resection by OPTOMETRY TEACHER, more than a year ago, last PAP was normal refer to OPTOMETRY TEACHER second opinion due to persistent dyspareunia Postcoital bleeding 08/24/2022 Assessment & Plan (03/26/2023 3:04 PM EDT): See previous issue and refer to OPTOMETRY TEACHER Pruritus 08/24/2022 Right upper quadrant pain 08/24/2022 [...] q2wk + albuterol PRN and FU w/ school guard Decline flue and Covid IZ today, advised [...] Provider, Generic External Data 12/22/2024 Orders Only [facility] External Provider, [facility] 10/03/2024 Orders Only GENERIC EXTERNAL DATA [...] Blood Count 5.0 4.8 - 10.8 X10*3/uL [facility] Red Blood Count 4.49 4.20 - 5.50 X10*6/uL [facility] Hemoglobin 13.0 12.0 - 16.0 g/dl [facility] Hematocrit 38.4 37.0 - 47.0 % [facility] Mean Corpuscular Volume 85.5 80.0 - 98.0 fL [facility] Mean Corpuscular Hemoglobin 29.0 27.0 - 33.0 pg [facility] Mean Corpuscular HGB Conc 33.9 31.0 - 35.0 g/dl [facility] Red Cell Distribution Width 11.8 11.0 - 16.0 % [facility] Platelet Count 191 160 - 400 X10*3/uL [facility] Mean Platelet Volume 11.2 9.4 - 12.3 fL [facility] Neutrophils Percent Auto 59.9 45 - 73 % [facility] Imm Gran Pct Auto 0.4 0.0 - 0.4 % [facility] Lymphocytes Percent Auto 30.6 20 - 40 % [facility] Monocytes Percent Auto 7.1 2 - 11 % [facility] Eosinophils Percent Auto 1.2 0 - 4 % [facility] Basophils Percent Auto 0.8 0 - 2 % [facility] NRBC Pct Auto 0.0 0.0 - 0.2 /100WBC [facility] Neutrophils Absolute Auto 3.0 2.0 - 8.3 x10*3/uL [facility] Imm Gran Abs Auto 0.02 0.00 - 0.03 X10*3/uL [facility] Lymphocytes Absolute Auto 1.5 1.2 - 4.9 X10*3/uL [facility] Monocytes Absolute Auto 0.4 0.1 - 1.2 X10*3/uL [facility] Eosinophils Absolute Auto 0.1 0.0 - 0.4 X10*3/uL [facility] Basophils Absolute Auto 0.0 0.0 - 0.2 X10*3/uL [facility] NRBC Abs Auto 0.000 0.0 - 0.012 X10*3/uL [facility] 12/30/2024 1:04 PM EDT 12/30/2024 2:05 PM EDT us Generic External Data Provider LAB BLOOD ORDERAB LES Final Result Performing Organization Address [facility]/ZIP Co de Phone Number [facility] [address] [place] [phone] * Sed Rate by Modified Elidaren (12/30/2024 1:04 PM EDT) Erythrocyte Sedimentation Rate 18 0 - 20 MM/HR [facility] Comment:Patients with polycy themia and many hemoglobin abnormalitiesmay have depressed sed rates whereas patients with anemiamay have elevated sed rates. 12/30/2024 1:04 PM EDT 12/30/2024 2:05 PM EDT us Generic External Data Provider LAB BLOOD ORDERAB LES Final Result [facility] [address] [place] [address] [phone] * NM heart perfusion SPECT stress and rest (12/22/2024 9:45 AM EDT) Anatomical Region Laterality Modality Body Nuclear Medicine 12/22/2024 9:45 AM EDT Narrative 12/23/2024 2:42 PM EDT ? [facility] ?[address] ?[place] [address] ?Nuclear Medicine Report ? Signed ? Patient: Marcos,Ada E ?MR#: [id number] ?? [id number] ? : 1960 ?Acct:[id number] ? Age/Sex: 64 / F ?ADM Date: 12/22/24 ? Loc: HO.CARD ? Attending Dr: Efren Rausch MD ? Ordering Physician: Efren Rausch MD ?? Date of Service: 12/22/24 ?? Procedure(s): NM fatou perf SPECT rest ?? str ?? Accession Number(s): [id number] ? cc: Iqra Nelson MD; Efren Rausch [...] DD/ 0945 ? TD/TT: 12/23/24 1200 ? Crop Picker: ? Procedure Note Nikunj Butterfield - 12/23/2024 [place] [address] Nuclear Medicine Report Signed Patient: Yoselin Rodríguez EMR#: [id number] : 1Acct:[id number] Age/Sex: 64 / FADM Date: 12/22/24 Loc: JAJA Attending Dr: Efren Rausch MD Ordering Physician: Efren Rausch MD Date of Service: 12/22/24 Procedure(s): NM fatou perf SPECT rest str Accession Number(s): [id number] cc: Iqra Nelson MD; Efren Rausch MD [...] 12/23/24 1439 DD/ 0945 TD/TT: 12/23/24 1200 Crop Picker: [facility] External Provider IMG NM PROCEDURES Final Result * BD DEXA Axial (10/30/2024 12:35 PM EST) Anatomical Region Laterality Modality Body Radiographic Carrol ging 10/30/2024 12:3 5 PM EST Narrative 10/30/2024 2:47 PM EST ? [facility] ? [address] ?[place] [address] ? Mammography Report ? Signed ? Patient: Marcos,Ada E ?MR#: [id number] ?? 233 ? : 1960 ?Acct:[id number] ? Age/Sex: 64 / F ?ADM Date: 02/13/25 ? Loc: HO.MAMMO ? Attending Dr: Maryann Joseph MD ? Ordering Physician: Maryann Joseph MD ?Results: ? Date of Service: 10/30/24 ?Follow Up: ? Procedure(s): XR DEXA axial skeleton ?? Accession Number(s): [id number] ? cc: Iqra Nelson MD; Maryann Joseph MD ? EXAMINATION: ??DXA BONE DENSITY AXIAL ? HISTORY: ??Estrogen deficiency ? TECHNIQUE: Prevacus Dual energy absorptiometry (DEXA) ?? of the [...] the [employer]'s ?? [facility] for Metabolic Bone Disease, a World Health Organization (WHO) ?? Collaborating Center. ? Electronically signed by: ??Mehran Evans MD ??10/30/2024 02:44 PM EST ?? RP ? Dictated By: ?Mehran Evans MD ? Signed By: ?<Electronically signed by Mehran Evans MD in OV> ?10/30/24 1444 ? DD/ 1235 ? TD/TT: 10/30/24 1255 ? Crop Picker: ? Procedure Note Nikunj Butterfield - 10/30/2024 [facility] [address] [place] [address] Dr. [place], [place] [address] Mammography Report Signed Patient: Yoselin Rodríguez EMR#: [id number] : 1960cct:[id number] Age/Sex: 64 / FADM Date: 10/30/24 Loc: HO.MAMMO Attending Dr: Maryann Joseph MD Ordering Physician: Maryann Josephults: Date of Service: 10/30/24Follow Up: Procedure(s): XR DEXA axial skeleton Accession Number(s): [id number] cc: Iqra Nelson MD; Maryann Joseph MD EXAMINATION: DXA BONE DENSITY AXIAL HISTORY: Estrogen deficiency TECHNIQUE: Prevacus Dual energy absorptiometry (DEXA) of the lumbar [...] of the [employer] Metabolic [facility] Disease, a World Health Organization (WHO) Collaborating Center. Electronically signed by: Mehran Evans MD 10/30/2024 02:44 PM EST Dictated By: Mehran Evans MD Signed By: <Electronically signed by Mehran Evans MD in OV> 10/30/24 1444 DD/ 1235 TD/TT: 10/30/24 1255 Crop Picker: [facility] External Provider IMG DXA PROCEDURES Final Result * Gram stain (10/03/2024 12:00 AM EST) 10/03/2024 10/03/2024 Comment:Sputum Narrative [facility] - 10/06/2024 9:08 AM EST Gram stain results: 4+ polys 2+ epithelial cells 3+ Gram-positive cocci 3+ Gram-positive rods 2+ Gram-negative rods Sputum Culture BAP Sputum Culture 4+ mixed upper-resp lara Haemophilus parainfluenzae B-Lac Susc (reported) Beta-lactamase not produced; suggests PEN/AMP susceptibility Quant Org ID 3+ Specimen Source: Sputum Generic External Data Provider LAB MICROBIOLOGY - GENERAL ORDERABLES Final Result [facility] [address] [place] [address] [phone] * Lipid Panel with Reflex to Direct LDL (11/08/2023 12:00 AM EST) Triglycerides 128 <150 mg/dL [facility] Comment:Desirable Triglyceri de: less than 150 mg/dLBorderline High Triglyceride 150-199 mg/dLHigh Triglyceride: 200-499 mg/dLVery High Triglyceride: greater than or equal to 5OO mg/dL Cholesterol 169 <200 mg/dL [facility] Comment:Desirable Cholestero l: less than 200 mg/dLBorderline High Cholesterol: 200-239 mg/dLHigh Cholesterol: greater than 239 mg/dL LDL Cholesterol Calculated 82 <100 mg/dL [facility] Comment:Desirable LDL: less than 100 mg/dLNear Optimal/Above Optimal LDL: 110- 129 mg/dLBorderline High LDL: 130-159 mg/dLHigh LDL: 160-189 mg/dLVery High LDL: greater than or equal to 190 mg/dL HDL Cholesterol 62 >40 mg/dL [facility] Comment:Desirable HDL: great er than 40 mg/dL Note: This HDL assay may give artificially low results in patients with liver disease. Blood 11/08/2023 11/08/2023 Iqra Nelson MD LAB BLOOD ORDERABLES Fin al Result [facility] [address] [place] [address] [phone] * HPV mRNA E6/E7 w/Reflex to HPV Genotypes 16, 18/45 (05/31/2023 1:12 PM EDT) HPV nRNA E6/E7 Not Detected Not Detected [facility] Comment:Methodology: Transcr iption-Mediated AmplificationThis assay detects E6/E7 viral messenger RNA (mRNA) from 14high-risk HPV types (16,18,31,33,35,39,45,51,52,56,58,59,66,68).Cervical sources are required for HPV testing.If a vaginal source from a patient who has had atotal hysterectomy with removal of cervix wassubmitted, please contact the testing laboratoryfor alternative testing options.For additional information, please refer tohttp://education.[employer])/faq/DEK349m0(This link if provided for information/educational purposes only.)THIS TEST WAS PERFORMED AT:[email or web address] [place] [phone] HARRISON MD HPV mRNA E6/E7 [facility] HPV 16 RNA [facility] HPV 18/45 RNA [facility] 05/31/2023 1:1 2 PM EDT 06/01/2023 9:00 AM EDT [facility] External Provider LAB CYT OLOGY ORDERABLES Final Result Performing Organization Address City/[facility]/ZIP Co de Phone Number [facility] [address] [place] [address] [phone] * Pap Smear (05/31/2023 1:12 PM EDT) 05/31/2023 1:12 PM EDT 06/01/2023 9:00 AM EDT Narrative [facility] - 06/12/2023 1:57 PM EDT ----- ------- Name: Yoselin Rodríguez ?Age/Sex: 62/F ? : 1960 Unit#: [id number] ?? Attend Dr: Ale Francisco CNM ?Re05/31/23 ?Status: DEP REF ? Location: HO.LNP ?Disch: ? ----- ------- SPEC : [id number] ?RECD: 06/01/23-899 ? STATUS: ??SOUT ? REQ NUM: [id number] ? AGATHA: 05/31/23-1311 ? SUBM DR: Ale [...] 66, 68) ? HPV testing performed by [employer], [place], [place]. ??See reference laboratory ?? portion of the EMR for entire report. ?Clinical Information LMP: No menses Previous PAP test: 07/19/21, abnormal Other history: +HPV, personal history of other infectious and parasitic diseases ? Material Received ?? ThinPrep-Cervical Copies To: ?? Iqra Nelson MD ?? [address] [facility] ?? [place] [address] ? Ale Francisco CNM ?? [address] [place] [address] [address] ?? [place] [address] ?? [phone] ----- ------- Signed (signature on file) Yajaira Dash 06/12/23 1357 ? ----- ------- ? END OF REPORT ? [facility] External Provider LAB CYT OLOGY ORDERABLES Final Result Performing Organization Address City/State/[facility] Co de Phone Number [facility] [address] [place] [phone] * Mammography Report 1 (04/21/2021 1:15 [...] Relevant to Health Maintenance Insurance Care Teams Fashion Coordinator Relationship Specialty Start Date End Date Johnny Casanova, RachelD [address], [place] Pharmacist Internal Medicine 09/26/22 Toñito Caraballo FNP [address], [place] Nurse Practitioner Family Medicine 08/08/23
--- OUTSIDE RECORDS SUMMARY | 2024-12-30 17:07 | XMS_ITS | Encounter Summary ---
Author Organization [employer] Address [address] [facility] 7t [place] [address] Care Team Providers Care Brim Buster Name Role Phone Iqra Nelson MD Primary Care Provider + Johnny Casanova PharmD Unavailable [phone] Toñito Caraballo Unavailable Unavailable Reason for Visit * Reason Comments Med Refill Encounter Details Date Type Department Care Team (Late st Contact Info) Description 12/28/2022 Refill [facility] [address] [place] [address] Toñito Caraballo FNP Major depressive disorder, recurrent, [...] Diagnoses Diagnosis Major depressive disorder, recurrent, moderate ([facility]) Major depressive disorder, recurrent episode, moderate documented in this encounter Additional Health Concerns Assessment Noted Time PHQ-9 Depression Total Score: 16 023 1:04 PM EDT documented as of this encounter Care Teams Brim Buster Relationship Specialty Start Date End Date Iqra Nelson MD [address] [place] [phone] PCP - General Family Medicine 12/05/16 04/08/24 Johnny Casanova, Ti [address] [place] [phone] Pharmacist Internal Medicine 09/26/22 Toñito Caraballo FNP [address] [place] [address] Nurse Practitioner Family Medicine 08/08/23 documented as of this encounter
--- OUTSIDE RECORDS SUMMARY | 2024-12-30 17:07 | XMS_ITS | Encounter Summary ---
Author Organization [employer] Address 75 [facility] 7t [place] [address] Care Team Providers Care Quill Picking Machine Operator Name Role Phone Iqra Nelson MD Primary Care Provider + Johnny Casanova PharmD Unavailable [phone] Toñito Caraballo Unavailable Unavailable Reason for Visit * Reason Comments Med Refill Encounter Details Date Type Department Care Team (Late st Contact Info) Description 07/20/2023 Refill [facility] [address] [place] [address] Toñito Caraballo FNP Social History Tobacco Use [...] documented as of this encounter Care Teams Quill Picking Machine Operator Relationship Specialty Start Date End Date Iqra Nelson MD [address] [place] [address] PCP - General Family Medicine 12/05/16 04/08/24 Johnny Casanova PharmD [address] [place] [address] Pharmacist Internal Medicine 09/26/22 Toñito Caraballo FNP [address] [place] [address] Nurse Practitioner Family Medicine 08/08/23 documented as of this encounter
--- OUTSIDE RECORDS SUMMARY | 2024-12-30 17:07 | XMS_ITS | Encounter Summary ---
Author Organization [employer] Address [address] [facility] 7t [place] [address] Care Team Providers Care Edging Machine Feeder Name Role Phone Johnny Casanova PharmD Unavailable [phone] Toñito Caraballo CARE NAVIGATOR Unavailable Unavailable Encounter Details Date Type Department Care Team ([facility] Contact Info) Description 12/30/2024 Orders Only GENERIC [...] Sedimentation Rate 18 0 - 20 MM/HR [facility] Comment:Patients with polycy themia and many hemoglobin abnormalitiesmay have depressed sed rates whereas patients with anemiamay have elevated sed rates. 12/30/2024 1:04 PM EDT 12/30/2024 2:05 PM EDT us Generic External Data Provider LAB BLOOD ORDERAB LES Final Result [facility] [address] [place] [address] [place] [address] [phone] * CBC auto differential (12/30/2024 1:04 PM EDT) White Blood Count 5.0 4.8 - 10.8 X10*3/uL [facility] Red Blood Count 4.49 4.20 - 5.50 X10*6/uL [facility] Hemoglobin 13.0 12.0 - 16.0 g/dl [facility] Hematocrit 38.4 37.0 - 47.0 % [facility] Mean Corpuscular Volume 85.5 80.0 - 98.0 fL [facility] Mean Corpuscular Hemoglobin 29.0 27.0 - 33.0 pg [facility] Mean Corpuscular HGB Conc 33.9 31.0 - 35.0 g/dl [facility] Red Cell Distribution Width 11.8 11.0 - 16.0 % [facility] Platelet Count 191 160 - 400 X10*3/uL [facility] Mean Platelet Volume 11.2 9.4 - 12.3 fL [facility] Neutrophils Percent Auto 59.9 45 - 73 % [facility] Imm Gran Pct Auto 0.4 0.0 - 0.4 % [facility] Lymphocytes Percent Auto 30.6 20 - 40 % [facility] Monocytes Percent Auto 7.1 2 - 11 % [facility] Eosinophils Percent Auto 1.2 0 - 4 % [facility] Basophils Percent Auto 0.8 0 - 2 % [facility] NRBC Pct Auto 0.0 0.0 - 0.2 /100WBC [facility] Neutrophils Absolute Auto 3.0 2.0 - 8.3 x10*3/uL [facility] Imm Gran Abs Auto 0.02 0.00 - 0.03 X10*3/uL [facility] Lymphocytes Absolute Auto 1.5 1.2 - 4.9 X10*3/uL [facility] Monocytes Absolute Auto 0.4 0.1 - 1.2 X10*3/uL [facility] Eosinophils Absolute Auto 0.1 0.0 - 0.4 X10*3/uL [facility] Basophils Absolute Auto 0.0 0.0 - 0.2 X10*3/uL [facility] NRBC Abs Auto 0.000 0.0 - 0.012 X10*3/uL [facility] 12/30/2024 1:04 PM EDT 12/30/2024 2:05 PM EDT us Generic External Data Provider LAB BLOOD ORDERAB LES Final Result [facility] [address] [place] [address] [phone] documented in this encounter Visit Diagnoses Not on filedocumented in this encounter Additional Health Concerns Assessment Noted Time PHQ-9 Depression Total Score: 9 03/24/20 24 9:50 AM EDT documented as of this encounter Care Teams Edging Machine Feeder Relationship Specialty Start Date End Date Johnny Casanova, Ti [address] [place] [address] Pharmacist Internal Medicine 09/26/22 Toñito Caraballo FNP [address] [place] [address] Nurse Practitioner Family Medicine 08/08/23 documented as of this encounter
--- OUTSIDE RECORDS SUMMARY | 2024-12-30 17:07 | XMS_ITS | Encounter Summary ---
Author Organization [employer] Address [address] [facility] 7t [place] [address] Care Team Providers Care Floral Department Specialist Name Role Phone Iqra Nelson MD Primary Care Provider + Johnny Casanova PharmD Unavailable [phone] Toñito Caraballo Unavailable Unavailable Reason for Visit * Reason Comments Med Refill Encounter Details Date Type Department Care Team (Late st Contact Info) Description 02/26/2023 Refill [facility] [address] [place] [address] Toñito Caraballo FNP Major depressive disorder, recurrent, [...] Diagnoses Diagnosis Major depressive disorder, recurrent, moderate ([facility]) Major depressive disorder, recurrent episode, moderate documented in this encounter Additional Health Concerns Assessment Noted Time PHQ-9 Depression Total Score: 10 023 3:45 PM EDT documented as of this encounter Care Teams Floral Department Specialist Relationship Specialty Start Date End Date Iqra Nelson MD [address] [place] [phone] PCP - General Family Medicine 12/05/16 04/08/24 Johnny Casanova, RachelD [address] [place] [address] Pharmacist Internal Medicine 09/26/22 Toñito Caraballo FNP [address] [place] [address] Nurse Practitioner Family Medicine 08/08/23 documented as of this encounter
--- OUTSIDE RECORDS SUMMARY | 2024-12-30 17:07 | XMS_ITS | Encounter Summary ---
Author Organization [employer] Address [address] [facility] 7t [place] [address] Care Team Providers Care Rig Welder Name Role Phone Iqra Nelson MD Primary Care Provider + Johnny Casanova PharmD Unavailable [phone] Toñito Caraballo Unavailable Unavailable Reason for Visit * Reason Onset Date Comments Med Refill Appointment 10/11/2023 LVM-Re: her apt for today as [id number] @2pm Encounter Details Date Type Department Care Team (Late st Contact Info) Description 10/11/2023 Refill [facility] [address] [place] [address] Toñito Caraballo FNP Social History Tobacco Use [...] is your housing situation today? I have nikyk yaw 06/25/[address] you [...] documented as of this encounter Care Teams Rig Welder Relationship Specialty Start Date End Date Iqra Nelson MD [address] [place] [phone] PCP - General Family Medicine 12/05/16 04/08/24 Johnny Casanova PharmD [address] [place] [address] Pharmacist Internal Medicine 09/26/22 Toñito Caraballo FNP [address] [place] [address] Nurse Practitioner Family Medicine 08/08/23 documented as of this encounter
--- OUTSIDE RECORDS SUMMARY | 2024-12-30 17:07 | XMS_ITS | Encounter Summary ---
Author Organization [employer] [facility] Address 75 [facility] 7t [place] [address] Care Team Providers Care Certified Pharmacy Technician Name Role Phone Iqra Nelson MD Primary Care Provider + Johnny Casanova PharmD Unavailable [phone] Toñito Caraballo CROWN AND BRIDGE TECHNICIAN Unavailable Unavailable Encounter Details Date Type Department Care Team ([facility] st Contact Info) Description 09/26/2022 Orders Only [facility] [address] [place] [address] Johnny Casanova, PharmD [address] [place] [address] Social History Tobacco Use Types Packs/Day Years [...] documented as of this encounter Care Teams Certified Pharmacy Technician Relationship Specialty Start Date End Date Iqra Nelson MD [address] [place] [address] PCP - General Family Medicine 12/05/16 04/08/24 Johnny Casanova, PharmD [address] [place] [address] Pharmacist Internal Medicine 09/26/22 Toñito Caraballo FNP [address] [place] [address] Nurse Practitioner Family Medicine 08/08/23 documented as of this encounter
--- OUTSIDE RECORDS SUMMARY | 2024-12-30 17:07 | XMS_ITS | Encounter Summary ---
Author Organization [employer] [facility] Address [address] [facility] 7t [place] [address] Care Team Providers Care Dog Obedience Instructor Name Role Phone Iqra Nelson MD Primary Care Provider + Johnny Casanova PharmD Unavailable [phone] Toñito Caraballo Unavailable Unavailable Reason for Visit * Reason Comments Med Refill Encounter Details Date Type Department Care Team (Late st Contact Info) Description 04/22/2023 Refill [facility] [address] [place] [address] Toñito Caraballo FNP Social History Tobacco Use [...] documented as of this encounter Care Teams Dog Obedience Instructor Relationship Specialty Start Date End Date Iqra Nelson MD [address] [place] [address] PCP - General Family Medicine 12/05/16 04/08/24 Johnny Casanova PharmD [address] [place] [address] Pharmacist Internal Medicine 09/26/22 Toñito Caraballo FNP [address] [place] [address] Nurse Practitioner Family Medicine 08/08/23 documented as of this encounter
--- OUTSIDE RECORDS SUMMARY | 2024-12-30 17:07 | XMS_ITS | Encounter Summary ---
Author Organization [facility] Address [address] [facility] 7t [place] [address] Care Team Providers Care Customer Program Manager Name Role Phone Iqra Nelson MD Primary Care Provider + Johnny Casanova PharmD Unavailable [phone] Toñito Caraballo Unavailable Unavailable Reason for Visit * Reason Comments Med Refill Encounter Details Date Type Department Care Team (Late st Contact Info) Description 02/21/2023 Refill [facility] MEDICINE [address] [place] [address] Toñito Caraballo FNP Social History Tobacco Use [...] documented as of this encounter Care Teams Customer Program Manager Relationship Specialty Start Date End Date Iqra Nelson MD [address] [place] [address] PCP - General Family Medicine 12/05/16 04/08/24 Johnny Casanova PharmD [address] [place] [address] Pharmacist Internal Medicine 09/26/22 Toñito Caraballo FNP [address] [place] [address] Nurse Practitioner Family Medicine 08/08/23 documented as of this encounter
--- OUTSIDE RECORDS SUMMARY | 2024-12-30 17:07 | XMS_ITS | Encounter Summary ---
Author Organization [facility] Address [address] [facility] 7t [place] [address] Care Team Providers Care Inside Finisher Name Role Phone Iqra Nelson MD Primary Care Provider + Johnny Casanova PharmD Unavailable [phone] Toñito Caraballo SHEEP SORTER Unavailable Unavailable Encounter Details Date Type Department Care Team ([facility] st Contact Info) Description 10/10/2022 Orders Only [facility] MEDICINE 230 [place], [place] [phone] Iqra Nelson MD 230 [place], [place] [phone] Vitamin D deficiency (Primary Dx); Senile osteoporosis [...] as of this encounter Care Teams Inside Finisher Relationship Specialty Start Date End Date Iqra Nelson MD [address] [place] [address] PCP - General Family Medicine 12/05/16 04/08/24 Johnny Casanova, Ti [address] [place] [address] Pharmacist Internal Medicine 09/26/22 oTñito Caraballo FNP [address] [place] [address] Nurse Practitioner Family Medicine 08/08/23 documented as of this encounter
--- OUTSIDE RECORDS SUMMARY | 2024-12-30 17:07 | XMS_ITS | Encounter Summary ---
Author Organization [employer] [facility] Address [address] [facility] 7t [place] [address] Care Team Providers Care Ice Cream Vault Worker Name Role Phone Iqra Nelson MD Primary Care Provider + Johnny Casanova PharmD Unavailable [phone] Toñito Caraballo SALES AND MARKETING INTERN Unavailable Unavailable Encounter Details Date Type Department Care Team ([facility] st Contact Info) Description 03/08/2023 Abstract [facility] MEDICINE 230 [place] [address] Iqra Nelson MD 230 [place] [address] Social History Tobacco Use Types Packs/Day Years [...] documented as of this encounter Care Teams Ice Cream Vault Worker Relationship Specialty Start Date End Date Iqra Nelson MD [address] [place] [address] PCP - General Family Medicine 12/05/16 04/08/24 Johnny Casanova, RachelD [address] [place] [address] Pharmacist Internal Medicine 09/26/22 Toñito Caraballo FNP [address] [place] [address] Nurse Practitioner Family Medicine 08/08/23 documented as of this encounter
[2024-12-30 18:02] LABS: Alkaline Phosphatase 112 U/L (39-117)
[2025-01-03 15:19] LABS: Vitamin D 25-OH, D2 8 ng/mL; Vitamin D 25-OH, D3 21 ng/mL; Vitamin D 25-OH, Total 29 ng/mL (30-100)
== END 2024-12-30 12:50 | disposition home or self-care (01) ==
LOC: HO.LAB 12:49
PROVIDERS: PCP Internal Medicine; Visit Provider Student in an Organized Health Care Education/Training Program
DX: M81.0 Age-related osteoporosis without current pathological fracture (principal); E55.9 Vitamin D deficiency, unspecified
CPT/HCPCS: 36415; 80053; 82306; 85025; 85652; 86140; 99212

== ENCOUNTER 2025-01-09 10:30 | Outpatient (AMB) | payer OTHER, SELFPAY ==
--- OUTSIDE RECORDS SUMMARY | 2025-01-09 11:04 | XMS_ITS | Encounter Summary ---
Author Organization [employer] Address [address] [facility] 7t [place] [address] Care Team Providers Care Media Aid Name Role Phone Iqra Nelson MD Primary Care Provider + Johnny Casanova PharmD Unavailable [phone] Toñito Caraballo Unavailable Unavailable Reason for Visit * Reason Comments Med Refill Encounter Details Date Type Department Care Team (Late st Contact Info) Description 07/20/2023 Refill [facility] MEDICINE 230 [place] [address] Toñito Caraballo FNP Social History Tobacco Use [...] documented as of this encounter Care Teams Media Aid Relationship Specialty Start Date End Date Iqra Nelson MD [address] [place] [address] PCP - General Family Medicine 12/05/16 04/08/24 Johnny Casanova PharmD [address] [place] [address] Pharmacist Internal Medicine 09/26/22 Toñito Caraballo FNP [address] [place] [address] Nurse Practitioner Family Medicine 08/08/23 documented as of this encounter
--- OUTSIDE RECORDS SUMMARY | 2025-01-09 11:04 | XMS_ITS | Encounter Summary ---
Author Organization [employer] Address [address] [facility] 7t [place] [address] Care Team Providers Care Early Interventionist Name Role Phone Iqra Nelson MD Primary Care Provider + Johnny Casanova PharmD Unavailable [phone] Toñito Caraballo Unavailable Unavailable Reason for Visit * Reason Comments Med Refill Encounter Details Date Type Department Care Team (Late st Contact Info) Description 12/28/2022 Refill [facility] MEDICINE 230 [place] [address] Toñito Caraballo FNP Major depressive disorder, recurrent, [...] Diagnoses Diagnosis Major depressive disorder, recurrent, moderate ([facility]) Major depressive disorder, recurrent episode, moderate documented in this encounter Additional Health Concerns Assessment Noted Time PHQ-9 Depression Total Score: 16 023 1:04 PM EDT documented as of this encounter Care Teams Early Interventionist Relationship Specialty Start Date End Date Iqra Nelson MD [address] [place] [address] PCP - General Family Medicine 12/05/16 04/08/24 Johnny Casanova, Ti [address] [place] [address] Pharmacist Internal Medicine 09/26/22 Toñito Caraballo FNP [address] [place] [address] Nurse Practitioner Family Medicine 08/08/23 documented as of this encounter
--- OUTSIDE RECORDS SUMMARY | 2025-01-09 11:04 | XMS_ITS | Encounter Summary ---
Author Organization [employer] Address [address] [facility] 7t [place] [address] Care Team Providers Care Behavioral Health Tech Name Role Phone Iqra Nelson MD Primary Care Provider + Johnny Casanova PharmD Unavailable [phone] Toñito Caraballo Unavailable Unavailable Reason for Visit * Reason Onset Date Comments Med Refill Appointment 10/11/2023 LVM-Re: her apt for today as [id number] @2pm Encounter Details Date Type Department Care Team (Late st Contact Info) Description 10/11/2023 Refill [facility] MEDICINE 230 [place] [address] Toñito Caraballo FNP Social History Tobacco Use [...] documented as of this encounter Care Teams Behavioral Health Tech Relationship Specialty Start Date End Date Iqra Nelson MD [address] [place] [address] PCP - General Family Medicine 12/05/16 04/08/24 Johnny Casanova PharmD [address] [place] [address] Pharmacist Internal Medicine 09/26/22 Toñito Caraballo FNP [address] [place] [address] Nurse Practitioner Family Medicine 08/08/23 documented as of this encounter
--- OUTSIDE RECORDS SUMMARY | 2025-01-09 11:04 | XMS_ITS | Encounter Summary ---
Author Organization [facility] Address [address] [facility] 7t [place] [address] Care Team Providers Care Safety Physician Name Role Phone Iqra Nelson MD Primary Care Provider + Johnny Casanova PharmD Unavailable [phone] Toñito Caraballo Unavailable Unavailable Reason for Visit * Reason Comments Med Refill Encounter Details Date Type Department Care Team (Late st Contact Info) Description 02/21/2023 Refill [facility] MEDICINE 230 [place] [address] Toñito Caraballo FNP Social History Tobacco Use [...] documented as of this encounter Care Teams Safety Physician Relationship Specialty Start Date End Date Iqra Nelson MD 230 [place] [address] PCP - General Family Medicine 12/05/16 04/08/24 Johnny Casanova PharmD 230 [place] [address] Pharmacist Internal Medicine 09/26/22 Toñito Caraballo FNP 230 [place] [address] Nurse Practitioner Family Medicine 08/08/23 documented as of this encounter
--- OUTSIDE RECORDS SUMMARY | 2025-01-09 11:04 | XMS_ITS | Data Portability ---
Author Organization [employer] [facility] Address [address] [place] [phone] Care Team Providers Care Structural Draftsman Name Role Phone [facility] OTHER [phone] [facility] OTHER Assessment Encounter Date Assessment Date Assessment LastModified by Organization Details LastModified Time 05/05/2023 05/05/2023 I provided real -time medical direction via phone for this encounter, and was available for additional phone based assistance as needed. I have reviewed and agree with the Assessment and Plan as documented by the Commercial Litigation Paralegal [email or web address] Not available 05/05/2023 17:13:47 08/27/2024 08/27/2024 service [...] 2 Ag, QL [place], respiratory specimen 2023 [facility], [address] [place] [address], [phone] 19:41:18 rapid flu (A+B) [address], [phone] 19:41:57 Referral None recorded. Procedures None recorded. Surgeries None recorded. Imaging None recorded. Medication Orders pred[facility]one 20 mg tablet 2023 024 [id number] [address] [place] [address], [address], 4 16:22:59 prednisone 20 mg tablet 2023 024 [id number] [address] [place] [address], [address], 4 16:24:53 benzonatate 100 mg capsule 2023 024 [id number] [address] [place] [address], [address], 4 16:24:53 azithromyci n 250 mg tablet 2022 023 [id number] [address] [place] [address], [address], 3 17:11:16 Augmentin 875 mg-125 mg tablet 2022 023 [id number] [address] [place] [address], [address], 3 16:07:33 metronidazo le 500 mg tablet 2021 022 [id number] [address] [place] [address], [address], 2 18:29:57 metronidazo le 500 mg tablet 2021 022 krallo Not available 2 09:06:30 Patient TargetsNo targets recorded. Patient InstructionsNo instructions recorded. Reason for Referral None Reported. Results Created Date Observation Date Name Description Value Unit Range Abnormal Flag Note LastModifiedBy Organization Detail LastModifiedTime 08/27/20 24 08/27/2024 rapid flu (A+B) Flu negati ve Not Available [facility] ed [address] [place] [address], [phone] 08/27/2024 19:14:26 08/27/20 24 08/27/2024 rapid SARS CoV 2 Ag, QL [place], respi rator y speci men rapid SARS CoV 2 Ag, QL [place], respiratory specimen negati ve Not Available Main - [facility] ed [address] [place] [address], [phone] 08/27/2024 19:14:26 Result Notes None recorded. Medical [...] Not available Not available Not available 05/05/2023 44769 RxNorm Not Available [facility] - production 4 03:47:03 3052 ibuprofen medicatio n hives Not available Not available 05/05/2023 5640 RxNorm SOB Karen Giraldo MD [address] [place] [address],[address], [place], [address], [employer] 3 17:17:13 3053 Augmentin medicatio n dyspnea Not available Not available 05/05/2023 99737 2 RxNorm Urtic aria Karen Giraldo MD [address] [place] [address],[address], [place], [address], [employer] 3 17:18:03 Medications Name Sig Start Date [...] Not Available No t Available [facility] Surgical Technologist active Not Available Not Available No t [...] 3 98 % 98 % 71 /min 49162.8 8 g 97.1 [degF] 16 /min 181 [...] Address Organization Details Last Updated DateTime 05/05/2023 09703.82 g Lexy Mendoza [address] [place] [address],[address], [place], [address], [employer] 05/05/2023 17:09:15 Date Recorded Oxygen saturation Oxygen saturation in Arterial blood by Pulse oximetry Body weight Respiratory rate Heart rate Body temperature Systolic blood pressure Diastolic blood pressure Provider Name and Address Organization Details Last Updated DateTime 4 99 % 99 % 12945.5 36 g 16 /min 82 /min 98 [degF] 164 mm[Hg] 72 mm[Hg] Not Available [facility] [employer] 4 16:20:14 Date Recorded Body temperature Heart rate Respiratory rate Oxygen saturation Oxygen saturation in Arterial blood by Pulse oximetry Systolic blood pressure Diastolic blood pressure Provider Name and Address Organization Details Last Updated DateTime 2 98.6 [degF] 80 /min 16 /min 100 % 100 % 161 mm[Hg] 78 mm[Hg] Orlin Ruiz MD [address] [facility],[address], [place], [address], [employer] 2 18:30:24 Social History None recorded. Functional [...] 1109 Orlin Ruiz MD Main - [facility] [address] [place] [phone] 01/05/2022 18:15:37 06/07/2022 14:14:50 Acute pelvic pain 670615657 R10.2 Reports history of cramping after cervical polyp removal. Reports spotting, on re-assessm ent with ergonomics engineer, passing fishy-sme lling white discharge. No abdominal tenderness on ergonomics engineer examinatio n to suggest referred intra-abdo mary process. Reports symptoms are not consistent with UTI, so LE on UA likely represents inflammati on versus contaminat ion. Unable to perform pelvic examinatio n with ergonomics engineer so difficult to assess for other pelvic pathology. Would benefit from close follow-up by physician who performed the procedure (Dr. Goldsmith?? ) Will treat empiricall y with Flagyl for BV in the interim. [address] Andrea Thorpe MD Main - [facility] [address] [place] [phone] 04/24/2023 16:05:20 04/24/2023 23:29:29 Acute otitis media 9431491 H66.92 Patient with history of adult ear infection presents with typical symptoms of ear pain. Commercial Litigation Paralegal examinatio n consistent with ear infection. Will treat with augmentin. They can pick it up tonight, so did not give anything via ergonomics engineer. 69010 Karen Giraldo MD Main - [facility] [address] [place] [phone] 05/05/2023 17:08:26 05/07/2023 07:15:01 Acute otitis media 5094052 H66.92 Patient reports she has had azithromyc [...] or middle ear/ inner ear fluid drain 05907 Domi Garland MD [facility] [employer] [address] [place] [phone] 08/27/2024 16:20:07 08/28/2024 00:15:45 Acute exacerbation of chronic obstructive pulmonary disease 764485495 J44.1 Health Concerns Section Related Observation LastModified by Organization Detai ls LastModified Time None Recorded Concern Status LastModified by Organization Details LastModified Time None Recorded Advance Directives Directive None Recorded Payers Encounter Date Sequence Insurance Name Policy Number Policy Barrow Covered Member ID Barrow Member ID Guarantor Name 01/05/2022 1 [facility] C[facility] - DOS PRIOR TO 2022 - DUAL ELIGIBLE (MEDICARE REPLACEMENT/AD VANTAGE - HMO) Yoselin Rodríguez [id number] Yoselin Rodríguez 04/24/2023 1 [employer] CARE [employer]IANCE - DOS ON OR AFTER 2022 - DUAL ELIGIBLE - DETENTION OPTIONS AND ONE CARE (MEDICARE REPLACEMENT/AD VANTAGE - HMO) Yoselin Rodríguez [id number] Yoselin Rodríguez 05/05/2023 1 [employer] CARE ALLIANCE - DOS ON OR AFTER 2022 - DUAL ELIGIBLE - DETENTION OPTIONS AND ONE CARE (MEDICARE REPLACEMENT/AD VANTAGE - HMO) Yoselin Rodríguez [id number] Yoselin Rodríguez 08/27/2024 1 [facility] C[facility] - DOS ON OR AFTER 2022 - DUAL ELIGIBLE - DETENTION OPTIONS AND ONE CARE (MEDICARE REPLACEMENT/AD VANTAGE - HMO) Yoselin Rodríguez [id number] Yoselin Rodríguez Notes Date Note Type Note [...] with her previous UTI. Orlin Ruiz MD [address] [place] [address],[address], [place], [phone], [employer] [facility] 01/05/2022 18:31:02 04/24/2023 text/html HPI: Severe left ear ache .................... .................... .................... .................... .................... .................... .................... . CRC Nursing Assessment: Comments: [facility] triage nurse calling on behalf of member with request for MIH visit for complaints of outer ear discomfort for 3 days Aware MIH visit does not include inner ear eval. Request instED visit to eval unsure fever/chills Verify member name/- Andrea Thorpe MD [address] [place] [address],[address] [facility], [place], [phone] [employer] 04/24/2023 16:07:52 05/05/2023 text/html HPI: mbr with know ear infection for two weeks/nasal congestion/moderate pain, recent ED visit ordered Fluconazole, mbr looking for oral antibiotics, requesting MIH. Protocol Used: Ear - Discharge Protocol-Based Disposition: Consider instED, [facility] Community Clinician, or PCP visit within [...] .................... .................... .................... .................... .................... .................... ........... Commercial Litigation Paralegal Note From Estrada Jain: Dispatched to the [...] Patient noted to have a steady gait. [facility] contacted to discuss patient presentation, complaints, and clinical findings. [facility] orders Azythromycin 500mg PO be given to [...] .................... . Disposition: Fulfilled Karen Giraldo MD [address] [place] [address],[address], [place], [phone], [employer] 05/05/2023 22:29:41 08/27/2024 text/html HPI: Member calling [...] any additional information to process this visit. Commercial Litigation Paralegal Organization Information for Shantanu Olson [employer] Name: [facility] Address: [address] [place] [address] [employer] Systems Technology Instructor: Zachary Heredia MD [place] No.: [id number] Commercial Litigation Paralegal POC Test Results from Shantanu Olson [employer] Rapid COVID antigen (16:14:44) COVID: - Attachments uploaded as part of this test result can be found under Documents section. Rapid influenza antigen (16:14:45) Flu: - Attachments uploaded as part of this test result can be found under Documents section. .................... .................... .................... .................... .................... .................... .................... . Commercial Litigation Paralegal Note From Shantanu Olson: Pt co dry [...] clear bilaterally, Covid and flu swab neg. [facility] Dada contacted and 20mg prednisone given PO, right meds, dose, date and route. RX called in for prednisone and benzonatate and continue with nebulizer treatments.. Pt education on signs indicating the ER. Pt advised to continue with manager revenue appt. Pt advised to follow up with PCP. .................... .................... .................... .................... .................... .................... .................... . [facility] Consulted: Domi Garland .................... .................... .................... .................... .................... .................... .................... . Disposition: Viviana Garland MD [address] [facility],[address], [place], [address], [employer] 08/27/2024 19:14:58 OBGyn Episode No OBEpisode recorded.
--- OUTSIDE RECORDS SUMMARY | 2025-01-09 11:04 | XMS_ITS | Encounter Summary ---
Author Organization [employer] [facility] Address [address] [facility] 7t [place] [address] Care Team Providers Care Butcher Helper Name Role Phone Iqra Nelson MD Primary Care Provider + Johnny Casanova PharmD Unavailable [phone] Toñito Caraballo SENIOR CLINICAL DATA COORDINATOR Unavailable Unavailable Encounter Details Date Type Department Care Team ([facility] st Contact Info) Description 10/10/2022 Orders Only [facility] MEDICINE 230 [place], [place] [phone] Iqra Nelson MD [address] [place], [place] [phone] Vitamin D deficiency (Primary Dx); Senile osteoporosis [...] documented as of this encounter Care Teams Butcher Helper Relationship Specialty Start Date End Date Iqra Nelson MD [address] [place] [address] PCP - General Family Medicine 12/05/16 04/08/24 Johnny Casanova, Ti [address] [place] [address] Pharmacist Internal Medicine 09/26/22 Toñito Caraballo FNP [address] [place] [address] Nurse Practitioner Family Medicine 08/08/23 documented as of this encounter
--- OUTSIDE RECORDS SUMMARY | 2025-01-09 11:04 | XMS_ITS | Encounter Summary ---
Author Organization [employer] Address [address] [facility] 7t [place] [address] Care Team Providers Care Dental Ceramist Helper Name Role Phone Iqra Nelson MD Primary Care Provider + Johnny Casanova PharmD Unavailable [phone] Toñito Caraballo CONTINUOUS PICKLING LINE PICKLER HELPER Unavailable Unavailable Encounter Details Date Type Department Care Team ([facility] st Contact Info) Description 02/12/2024 Orders Only [facility] MEDICINE 230 [place] [address] Provider, MD Antoine Social History Tobacco Use [...] documented as of this encounter Care Teams Dental Ceramist Helper Relationship Specialty Start Date End Date Iqra Nelson MD [address] [place] [address] PCP - General Family Medicine 12/05/16 04/08/24 Johnny Casanova PharmD [address] [place] [address] Pharmacist Internal Medicine 09/26/22 Toñito Caraballo FNP [address] [place] [address] Nurse Practitioner Family Medicine 08/08/23 documented as of this encounter
--- OUTSIDE RECORDS SUMMARY | 2025-01-09 11:04 | XMS_ITS | Encounter Summary ---
Author Organization [facility] Address [address] [facility] 7t [place] [address] Care Team Providers Care Inventory Control Coordinator Name Role Phone Iqra Nelson MD Primary Care Provider + Johnny Casanova PharmD Unavailable [phone] Toñito Caraballo INSTRUCTION DEAN Unavailable Unavailable Encounter Details Date Type Department Care Team ([facility] st Contact Info) Description 03/08/2023 Abstract [facility] MEDICINE 230 [place] [address] Iqra Nelson MD 230 [place] [address] Social History Tobacco Use Types Packs/Day Years [...] documented as of this encounter Care Teams Inventory Control Coordinator Relationship Specialty Start Date End Date Iqra Nelson MD [address] [place] [address] PCP - General Family Medicine 12/05/16 04/08/24 Johnny Casanova, RachelD [address] [place] [address] Pharmacist Internal Medicine 09/26/22 Toñito Caraballo FNP [address] [place] [address] Nurse Practitioner Family Medicine 08/08/23 documented as of this encounter
--- OUTSIDE RECORDS SUMMARY | 2025-01-09 11:04 | XMS_ITS | Encounter Summary ---
Author Organization [employer] [facility] Address [address] [facility] 7t [place] [address] Care Team Providers Care Apricot Packer Name Role Phone Iqra Nelson MD Primary Care Provider + Johnny Casanova PharmD Unavailable [phone] Toñito Caraballo MEDICAL OFFICE PROFESSIONAL INSTRUCTOR Unavailable Unavailable Encounter Details Date Type Department Care Team ([facility] st Contact Info) Description 09/26/2022 Orders Only [facility] MEDICINE 230 [place] [address] Johnny Casanova, PharmD [address] [place] [address] Social History Tobacco Use Types Packs/Day Years [...] documented as of this encounter Care Teams Apricot Packer Relationship Specialty Start Date End Date Iqra Nelson MD [address] [place] [address] PCP - General Family Medicine 12/05/16 04/08/24 Johnny Casanova, PharmD [address] [place] [address] Pharmacist Internal Medicine 09/26/22 Toñito Caraballo FNP [address] [place] [address] Nurse Practitioner Family Medicine 08/08/23 documented as of this encounter
--- OUTSIDE RECORDS SUMMARY | 2025-01-09 11:04 | XMS_ITS | Clinical Summary ---
Author Organization [employer] Address [address] [facility] 7t [place] [address] Care Team Providers Care Suction Dredge Dumping Supervisor Name Role Phone Johnny Casanova PharmD Unavailable [phone] Toñito Caraballo SUBSTATION ENGINEER Unavailable Unavailable Allergies Active Allergy Reactions Criticality [...] diets. She wants a referral to the parking patroller. Discussed re weight reduction options including exercise, life style modifications, diet, referral to program research specialist. Discussed re lower calorie intake, increase [...] retiring, so any issues or concerns, contact [facility]. All her questions were answered and I [...] EST): Continue estrace cream and fu with CLIENT SERVICES COORDINATOR. Refill sent to pharmacy. Assessment & Plan (10/09/2022 2:44 PM EST): Most likely secondary to atrophic vaginitis. -use estrogen cream daily x2 weeks and then 3 times per week. Pneumonia due to COVID-19 virus 08/24/2022 Polyp of cervix 08/24/2022 Assessment & Plan (03/26/2023 2:56 PM EDT): s/p resection by CLIENT SERVICES COORDINATOR, more than a year ago, last PAP was normal refer to CLIENT SERVICES COORDINATOR second opinion due to persistent dyspareunia Postcoital bleeding 08/24/2022 Assessment & Plan (03/26/2023 3:04 PM EDT): See previous issue and refer to CLIENT SERVICES COORDINATOR Pruritus 08/24/2022 Right upper quadrant pain 08/24/2022 [...] q2wk + albuterol PRN and FU w/ psychological tests sales agent Decline flue and Covid IZ today, advised [...] Provider, Generic External Data 12/22/2024 Orders Only [facility] External Provider, [facility] from Last 3 Months Immunizations Name Administration [...] 09/19/2021, 03/14/2021, 02/17/2021 Influenza Vaccine (#1) 2024 Tobacco Screening 10/22/2024 10/22/2023 Depression Screening 03/24/2025 [...] per day Blood Pressure No Johnny Casanova, Ti Procedures Procedure Name Priority Date/Time Associated Diagnosis Comments VITAMIN D 25-OH (D2 AND D3) Routine 12/30/2024 1:04 PM EDT SED RATE BY MODIFIED WESTERGREN Routine 12/30/2024 1:04 PM EDT C-REACTIVE PROTEIN Routine 12/30/2024 1: 04 PM EDT COMPREHENSIVE METABOLIC PANEL Routine 12/30/2024 1:04 PM EDT CBC WITH AUTO DIFFERENTIAL Routine 12/30/2024 1:04 PM EDT NM HEART PERFUSION SPECT STRESS AND REST Routine 12/22/2024 9:45 AM EDT BD DEXA AXIAL Routine 10/30/2024 12:35 PM EST LIPID PANEL WITH REFLEX TO DIRECT [...] Recently Relevant to Health Maintenance Results * (ABNORMAL) VITAMIN D 25-OH (D2 AND D3) (12/30/2024 1:04 PM EDT) Vitamin D, 25-OH, D2 8 ng/mL [facility] Comment:This test was develo ped and its analytical performancecharacteristics have been determined by [employer] [place], [place]. It hasnot been cleared or approved by the U.S. Food and DrugAdministration. This assay has been validated pursuantto the CLIA regulations and is used for clinicalpurposes.THIS TEST WAS PERFORMED AT:Rule[employer] [id number] [place] [id number] BRITTON MD,PHD Vitamin D, 25-OH, D3 21 ng/mL [facility] Comment:This test was develo ped and its analytical performancecharacteristics have been determined by [employer] [place], [place]. It hasnot been cleared or approved by the U.S. Food and DrugAdministration. This assay has been validated pursuantto the CLIA regulations and is used for clinicalpurposes. Vitamin D, 25-OH, Total 29(A) 30 - 100 ng/mL [facility] Comment:Vitamin D, 25-Hydrox y reports concentrations of twocommon forms, 25-OHD2 and 25-OHD3. 25-OHD3 indicatesboth endogenous production and supplementation.25-OHD2 is an indicator of exogenous sources such asdiet or supplementation. Therapy is based onmeasurement of Total 25-OHD, with levels <20 ng/mLindicative of Vitamin D deficiency, while levelsbetween 20 ng/mL and 30 ng/mL suggest insufficiency.Optimal levels are > or = 30 ng/mL.For additional information, please refer tohttp://education.SimilarWeb/faq/WYZ764(This link is being provided for informational/educational purposes only.) 12/30/2024 1:04 PM EDT 12/30/2024 2:05 PM EDT us Generic External Data Provider LAB BLOOD ORDERAB LES Final Result [facility] [address] [place] [address] [phone] * CBC auto differential (12/30/2024 1:04 PM EDT) White Blood Count 5.0 4.8 - 10.8 X10*3/uL [facility] Red Blood Count 4.49 4.20 - 5.50 X10*6/uL [facility] Hemoglobin 13.0 12.0 - 16.0 g/dl [facility] Hematocrit 38.4 37.0 - 47.0 % [facility] Mean Corpuscular Volume 85.5 80.0 - 98.0 fL [facility] Mean Corpuscular Hemoglobin 29.0 27.0 - 33.0 pg [facility] Mean Corpuscular HGB Conc 33.9 31.0 - 35.0 g/dl [facility] Red Cell Distribution Width 11.8 11.0 - 16.0 % [facility] Platelet Count 191 160 - 400 X10*3/uL [facility] Mean Platelet Volume 11.2 9.4 - 12.3 fL [facility] Neutrophils Percent Auto 59.9 45 - 73 % [facility] Imm Gran Pct Auto 0.4 0.0 - 0.4 % [facility] Lymphocytes Percent Auto 30.6 20 - 40 % [facility] Monocytes Percent Auto 7.1 2 - 11 % [facility] Eosinophils Percent Auto 1.2 0 - 4 % [facility] Basophils Percent Auto 0.8 0 - 2 % [facility] NRBC Pct Auto 0.0 0.0 - 0.2 /100WBC [facility] Neutrophils Absolute Auto 3.0 2.0 - 8.3 x10*3/uL [facility] Imm Gran Abs Auto 0.02 0.00 - 0.03 X10*3/uL [facility] Lymphocytes Absolute Auto 1.5 1.2 - 4.9 X10*3/uL [facility] Monocytes Absolute Auto 0.4 0.1 - 1.2 X10*3/uL [facility] Eosinophils Absolute Auto 0.1 0.0 - 0.4 X10*3/uL [facility] Basophils Absolute Auto 0.0 0.0 - 0.2 X10*3/uL [facility] NRBC Abs Auto 0.000 0.0 - 0.012 X10*3/uL [facility] 12/30/2024 1:04 PM EDT 12/30/2024 2:05 PM EDT us Generic External Data Provider LAB BLOOD ORDERAB LES Final Result [facility] [address] [place] [phone] * Sed Rate by Modified Edmund (12/30/2024 1:04 PM EDT) Erythrocyte Sedimentation Rate 18 0 - 20 MM/HR [facility] Comment:Patients with polycy themia and many hemoglobin abnormalitiesmay have depressed sed rates whereas patients with anemiamay have elevated sed rates. 12/30/2024 1:04 PM EDT 12/30/2024 2:05 PM EDT us Generic External Data Provider LAB BLOOD ORDERAB LES Final Result Performing Organization Address [facility] Co de Phone Number [facility] [address] [place] [phone] * (ABNORMAL) C-reactive Protein (12/30/2024 1:04 PM EDT) Pathologist [facility] C Reactive Protein 1.08(H) < or = 0.50 mg/dL [facility] 12/30/2024 1:04 PM EDT 12/30/2024 2:05 PM EDT Generic External Data Provider LAB BLOOD ORDERAB LES Final Result Performing Organization Address [facility] de Phone Number [facility] [address] [place] [phone] * (ABNORMAL) Comprehensive Metabolic Panel (12/30/2024 1:04 PM EDT) Pathologist [facility] Sodium 146(H) 135 - 145 mmol/L [facility] Potassium 4.8 3.3 - 5.1 mmol/L [facility] Chloride 110(H) 96 - 108 mmol/L [facility] Carbon Dioxide 28 22 - 29 mmol/L [facility] Anion Gap 13 12 - 20 [facility] Urea Nitrogen (BUN) 17(H) 9 - 16 mg/dL [facility] Creatinine, Serum 0.76 0.5 - 1.4 mg/dL [facility] Estimated Glomerular Filt Rate >60 [facility] Comment:Chronic Kidney Disea se: Estimated GFR < 60 mL/min/1.78j1Xhkldj Kidney Disease: Estimated GFR < 15 mL/min/1.73m2 Glucose 92 60 - 115 mg/dL [facility] Calcium 10.0 8.4 - 10.2 mg/dL [facility] Bilirubin, Total 0.6 0.0 - 1.0 mg/dL [facility] Aspartate Amino Transferase 36(H) 5 - 31 U/L [facility] Alanine Aminotransferase 35(H) 0 - 31 U/L [facility] Total Protein 7.0 6.5 - 8.0 g/dL [facility] Albumin Level 4.0 3.5 - 5.0 g/dL [facility] Alkaline Phosphatase 112 39 - 117 U/L [facility] 12/30/2024 1:04 PM EDT 12/30/2024 2:05 PM EDT us Generic External Data Provider LAB BLOOD ORDERAB LES Final Result [facility] [address] [place] [phone] * NM heart perfusion SPECT stress and rest (12/22/2024 9:45 AM EDT) Anatomical Region Laterality Modality Body Nuclear Medicine 12/22/2024 9:45 AM EDT Narrative 12/23/2024 2:42 PM EDT ? [facility] ?[address] ?[place] [address] ?Nuclear Medicine Report ? Signed ? Patient: Yoselin Rodríguez ?MR#: [id number] ?? [id number] ? : 1960 ?Acct:[id number] ? Age/Sex: 64 / F ?ADM Date: 12/22/24 ? Loc: HO.CARD ? Attending Dr: Efren Rausch MD ? Ordering Physician: Efren Rausch MD ?? Date of Service: 12/22/24 ?? Procedure(s): NM fatou perf SPECT rest ?? str ?? Accession Number(s): [id number] ? cc: Iqra Nelson MD; Efren Rausch [...] DD/ 0945 ? TD/TT: 12/23/24 1200 ? Hydroelectric Systems Technician: ? Procedure Note Nikunj Butterfield - 12/23/[address] [address] Nuclear Medicine Report Signed Patient: Yoselin Rodríguez EMR#: [id number] : 1Acct:[id number] Age/Sex: 64 / FADM Date: 12/22/24 Loc: HO.CARD Attending Dr: Efren Rausch MD Ordering Physician: Efren Rausch MD Date of Service: 12/22/24 Procedure(s): NM fatou perf SPECT rest str Accession Number(s): [id number] cc: Iqra Nelson MD; Efren Rausch MD [...] 12/23/24 1439 DD/ 0945 TD/TT: 12/23/24 1200 Hydroelectric Systems Technician: us [facility] External Provider IMG NM PROCEDURES Final Result * BD DEXA Axial (10/30/2024 12:35 PM EST) Anatomical Region Laterality Modality Body Radiographic Carrol ging 10/30/2024 12:3 5 PM EST Narrative 10/30/2024 2:47 PM EST ? [facility] ? [address] ?[place], [place] [address] ? Mammography Report ? Signed ? Patient: Marcos,Ada E ?MR#: [id number] ?? 233 ? : 1960 ?Acct:[id number] ? Age/Sex: 64 / F ?ADM Date: 10/30/ ? Loc: HO.MAMMO ? Attending Dr: Mohamed Talaat MD ? Ordering Physician: Talaat,Mohamed MD ?Results: ? Date of Service: 10/30/ ?Follow Up: ? Procedure(s): XR DEXA axial skeleton ?? Accession Number(s): [id number] ? cc: Iqra Nelson MD; Maryann Joseph MD ? EXAMINATION: ??DXA BONE DENSITY AXIAL ? HISTORY: ??Estrogen deficiency ? TECHNIQUE: Kindling Dual energy absorptiometry (DEXA) ?? of the [...] is a trademark of the [employer]'s ?? [place] [facility] Metabolic Bone Disease, a World Health Organization (WHO) ?? Collaborating Center. ? Electronically signed by: ??Mehran Evans MD ??10/30/2024 02:44 PM EST ?? RP ? Dictated By: ?Mehran Evans MD ? Signed By: ?<Electronically signed by Mehran Evans MD in OV> ?10/30/24 1444 ? DD/ 1235 ? TD/TT: 10/30/24 1255 ? Hydroelectric Systems Technician: ? Procedure Note Donotuseinterpreter, Image - 10/30/2024 [place] [facility] [address] [place], [place] [address] Mammography Report Signed Patient: Yoselin Rodríguez EMR#: [id number] 233 : 1Acct:[id number] Age/Sex: 64 / FADM Date: 10/30/24 Loc: HO.MAMMO Attending Dr: Maryann Joseph MD Ordering Physician: Maryann Josephesults: Date of Service: 10/30/24Follow Up: Procedure(s): XR DEXA axial skeleton Accession Number(s): [id number] cc: Iqra Nelson MD; Maryann Joseph MD EXAMINATION: DXA BONE DENSITY AXIAL HISTORY: Estrogen deficiency TECHNIQUE: Kindling Dual energy absorptiometry (DEXA) of the lumbar [...] of the [employer]'s [facility] [facility] Met[facility] [employer] Disease, a World Health Organization (WHO) Collaborating Center. Electronically signed by: Mehran Evans MD 10/30/2024 02:44 PM EST RP Dictated By: Mehran Evans MD Signed By: <Electronically signed by Mehran Evans MD in OV> 10/30/24 1444 DD/ 1235 TD/TT: 10/30/24 1255 Hydroelectric Systems Technician: [facility] External Provider IMG DXA PROCEDURES Final Result * Lipid Panel with Reflex to Direct LDL (11/08/2023 12:00 AM EST) Triglycerides 128 <150 mg/dL [facility] Comment:Desirable Triglyceri de: less than 150 mg/dLBorderline High Triglyceride 150-199 mg/dLHigh Triglyceride: 200-499 mg/dLVery High Triglyceride: greater than or equal to 5OO mg/dL Cholesterol 169 <200 mg/dL [facility] Comment:Desirable Cholestero l: less than 200 mg/dLBorderline High Cholesterol: 200-239 mg/dLHigh Cholesterol: greater than 239 mg/dL LDL Cholesterol Calculated 82 <100 mg/dL [facility] Comment:Desirable LDL: less than 100 mg/dLNear Optimal/Above Optimal LDL: 110- 129 mg/dLBorderline High LDL: 130-159 mg/dLHigh LDL: 160-189 mg/dLVery High LDL: greater than or equal to 190 mg/dL HDL Cholesterol 62 >40 mg/dL [facility] Comment:Desirable HDL: great er than 40 mg/dL Note: This HDL assay may give artificially low results in patients with liver disease. Blood 11/08/2023 11/08/2023 us Iqra Nelson MD LAB BLOOD ORDERABLES Fin al Result [facility] [address] [place] [phone] * HPV mRNA E6/E7 w/Reflex to HPV Genotypes 16, 18/45 (05/31/2023 1:12 PM EDT) HPV nRNA E6/E7 Not Detected Not Detected [facility] Comment:Methodology: Transcr iption-Mediated AmplificationThis assay detects E6/E7 viral messenger RNA (mRNA) from 14high-risk HPV types (16,18,31,33,35,39,45,51,52,56,58,59,66,68).Cervical sources are required for HPV testing.If a vaginal source from a patient who has had atotal hysterectomy with removal of cervix wassubmitted, please contact the testing laboratoryfor alternative testing options.For additional information, please refer tohttp://education.Mobile Captain/faq/IGK215a3(This link if provided for information/educational purposes only.)THIS TEST WAS PERFORMED AT:[facility] [place] [phone] HARRISON MD HPV mRNA E6/E7 [facility] HPV 16 RNA [facility] HPV 18/45 RNA [facility] 05/31/2023 1:12 PM EDT 06/01/2023 9:00 AM EDT [facility] External Provider LAB CYT OLOGY ORDERABLES Final Result [facility] [address] [place] [address] [phone] * Pap Smear (05/31/2023 1:12 PM EDT) 05/31/2023 1:12 PM EDT 06/01/2023 9:00 AM EDT Narrative [facility] - 06/12/2023 1:57 PM EDT ----- ------- Name: MarcosYoselin Brody ?Age/Sex: 62/F ? : 1960 Unit#: [id number] ?? Attend Dr: Ale Francisco CNM ?Re05/31/23 ?Status: DEP REF ? Location: HO.LNP ?Disch: ? ----- ------- SPEC : [id number] ?RECD: 06/01/23 ? STATUS: ??SOUT ? REQ NUM: [id number] ? AGATHA: 05/31/23-1312 ? SUBM DR: Ale Francisco CNM ? ENTERED: ??06/01/23-1101 ?SP TYPE: Pap Smr [...] 66, 68) ? HPV testing performed by [email or web address], [place], [place]. ??See reference laboratory ?? portion of the EMR for entire report. ?Clinical Information LMP: No menses Previous PAP test: 07/19/21, abnormal Other history: +HPV, personal history of other infectious and parasitic diseases ? Material Received ?? ThinPrep-Cervical Copies To: ?? Iqra Nelson MD ?? [address] [facility] ?? [place] [id number] ? Ale Francisco CNM ?? [address] [facility] ?? [place] [address] ?? [phone] ----- ------- Signed (signature on file) Yajaira Dash 06/12/23 5155 ? ----- ------- ? END OF REPORT ? [facility] External Provider LAB CYT [facility] ORDERABLES Final Result [facility] [address] [place] [phone] * Mammography Report 1 (04/21/2021 1:15 [...] 8:58 AM EDT) Colonoscopy Normal Normal Narrative Dorina Claudia - 03/04/2018 8:58 AM EDT Recommended 10 year follow up Historical Provider HEALTH MAINTENANCE Final Result from Last 3 Months or Most Recently Relevant to Health Maintenance Insurance [facility] Care Teams Suction Dredge Dumping Supervisor Relationship Specialty Start Date End Date Johnny Casanova, RachelD [address] [place] [address] Pharmacist Internal Medicine 09/26/22 Toñito Caraballo FNP [address] [place], [place] Nurse Practitioner Family Medicine 08/08/23
--- OUTSIDE RECORDS SUMMARY | 2025-01-09 11:04 | XMS_ITS | Encounter Summary ---
Author Organization [employer] Address [address] [facility] 7[address] [place] [address] Care Team Providers Care Corrections Sergeant Name Role Phone Iqra Nelson MD Primary Care Provider + Johnny Casanova PharmD Unavailable [phone] [place]ñito Caraballo Unavailable Unavailable Reason for Visit * Reason Comments Med Refill Encounter Details Date Type Department Care Team (Late st Contact Info) Description 02/26/2023 Refill [facility] MED[facility] [address] [place] [address] Toñito Caraballo FNP Major depressive disorder, recurrent, [...] Diagnoses Diagnosis Major depressive disorder, recurrent, moderate ([facility]/HCC) Major depressive disorder, recurrent episode, moderate documented in this encounter Additional Health Concerns Assessment Noted Time PHQ-9 Depression Total Score: 10 023 3:45 PM EDT documented as of this encounter Care Teams Corrections Sergeant Relationship Specialty Start Date End Date Iqra Nelson MD [address] [place] [phone] PCP - General Family Medicine 12/05/16 04/08/24 Johnny Casanova, RachelD [address] [place] [phone] Pharmacist Internal Medicine 09/26/22 Toñito Caraballo FNP [address] [place] [phone] Nurse Practitioner Family Medicine 08/08/23 documented as of this encounter
--- OUTSIDE RECORDS SUMMARY | 2025-01-09 11:04 | XMS_ITS | Encounter Summary ---
Author Organization [employer] [facility] Address [address] [facility] [address] [place] [address] Care Team Providers Care Hereditary Cancer Program Coordinator Name Role Phone Iqra Nelson MD Primary Care Provider + Johnny Casanova PharmD Unavailable [phone] [place] Caraballo Unavailable Unavailable Reason for Visit * Reason Comments Med Refill Encounter Details Date Type Department Care Team (Late st Contact Info) Description 04/22/2023 Refill [facility] MED[facility] [address] [place] [address] Toñito Caraballo FNP Social History Tobacco Use [...] documented as of this encounter Care Teams Hereditary Cancer Program Coordinator Relationship Specialty Start Date End Date Iqra Nelson MD [address] [place] [address] PCP - General Family Medicine 12/05/16 04/08/24 Johnny Casanova PharmD [address] [place] [address] Pharmacist Internal Medicine 09/26/22 Toñito Caraballo FNP [address] [place] [address] Nurse Practitioner Family Medicine 08/08/23 documented as of this encounter
--- NOTE | 2025-01-09 11:33 | AM.OFFVISNUR ---
Intake Visit Reasons: prolia injection Allergies cephalexin Allergy (Severe, Verified 12/30/24 13:08) Rash seafood Allergy (Severe, Verified 12/30/24 13:05) Anaphylaxis vancomycin [VANCOMYCIN] Allergy (Severe, Verified 12/30/24 13:05) ANAPHYLAXIS, hives aspirin [ASPIRIN] Allergy (Intermediate, Verified 12/30/24 13:05) rash, asthma codeine [CODEINE] Allergy (Mild, Verified 12/30/24 13:05) rash egg [EGGS] Allergy (Mild, Verified 12/30/24 13:05) VOMITING peanut [PEANUTS] Allergy (Mild, Verified 12/30/24 13:05) HIVES,DIARRHEA amoxicillin [From Augmentin] Allergy (Verified 12/30/24 13:05) hives, swelling, difficulty breathing clavulanic acid [From Augmentin] Allergy (Verified 12/30/24 13:05) hives, swelling mushroom Allergy (Verified 12/30/24 13:05) Rash lactose Adverse Reaction (Intermediate, Verified 12/30/24 13:05) diarrhea cepha mixlexin Allergy (Intermediate, Uncoded 12/30/24 13:08) racing heart, rash Nursing Note Administering injection- Prolia Yoselin Rodríguez accompanied? presents today? for? Prolia (Denosumab) 60 mg/mL injection for the treatment of osteoporosis. The patient has not had any recent fever or illness. The injection site to be used is without erythema, edema, and is clean, dry and intact. Prolia 60mg/mL [facility] 30934-335-78 Lot # [id number]? Expiration 04/16/2027? given in the Left posterior forearm . The patient tolerated the procedure well.? We discussed follow-up? precautions including but not limited to injection site soreness, redness, itching or swelling. The patient can call the office for consideration of treatment recommendations e.g., medication to reduce pain (e.g., Tylenol) or itching (e.g., Benadryl) if needed. Skin and mucosal symptoms such as generalized hives, itching, or flushing; swelling of lips, face, throat, or eyes. Respiratory symptoms such as nasal congestion, change in voice, sensation of throat closing, stridor, shortness of breath, wheeze, or cough. Gastrointestinal symptoms such as nausea, vomiting, diarrhea, cramping abdominal pain. Cardiovascular symptoms such as collapse, dizziness, tachycardia, hypotension are considered medical emergencies and the patient verbalizes that urgent medical attention (call 911) should be sought. The patient was observed for 30 minutes. No injection site reactions noted. The patient was discharged from the practice. Office Meds Prolia 60 mg/mL subcutaneous syringe Performing Provider: Peace Chang MD Performing Location: [facility] Administered by: James Pandya RN on 01/09/25 11:15 Dose Route Admin Location Dispensed Lot Number Expiration Date [facility] Locker Operator 60 mg subcut Left posterior arm 1 mL [id number] 04/16/27 21841-853-45 [facility] Assessment & Plan Assessment & Plan Orders: Orders AMB Denosumab Injection Practice Supplied Today M81.0 - Age-related osteoporosis without current pathological fracture Medications: New Prolia (denosumab) 60 mg subcut ONCE 1 mL 0RF NS M81.0 - Age-related osteoporosis without current pathological fracture Coding
== END 2025-01-09 12:38 | disposition home or self-care (01) ==
LOC: HO.RHE 10:30
PROVIDERS: PCP Internal Medicine; Visit Provider Student in an Organized Health Care Education/Training Program
DX: M81.0 Age-related osteoporosis without current pathological fracture (principal)

== ENCOUNTER → 2025-01-09 10:30 | Outpatient (BNVA) | payer OTHER, SELFPAY | PROVIDERS: PCP Internal Medicine; Visit Provider Student in an Organized Health Care Education/Training Program | DX: M81.0 Age-related osteoporosis without current pathological fracture (principal) | CPT/HCPCS: 96372; J0897 ==

== ENCOUNTER 2025-01-13 11:02 | Outpatient (AMB) | payer OTHER, SELFPAY ==
--- NOTE | 2025-01-13 11:07 | MHC.OFFVIS ---
Vital Signs 01/13/25 11:08 Height 4 ft 10 in Weight 163 lb 2.273 oz BMI 34.1 BP 131/75 Blood Pressure Location Lt brachial Position Sitting Pulse 72 Intake Visit Reasons: F/U Abd Cramps Intake Note: Ada presents in the office as a follow up for abdominal cramps. CC: She states that she keeps having the pains in the umbilical area and RUQ. She had labs done that her Dr ordered and something came up regarding her liver numbers. She states she will have constipation once a week but it is not frequent - she has a lot of cramps, gas and GERD. She has been taking omeprazole BID that past 4 days because of the GERD. Account Liaison Required: No Allergies cephalexin Allergy (Severe, Verified 01/13/25 11:18) Rash seafood Allergy (Severe, Verified 01/13/25 11:18) Anaphylaxis vancomycin [VANCOMYCIN] Allergy (Severe, Verified 01/13/25 11:18) ANAPHYLAXIS, hives aspirin [ASPIRIN] Allergy (Intermediate, Verified 01/13/25 11:18) rash, asthma codeine [CODEINE] Allergy (Mild, Verified 01/13/25 11:18) rash egg [EGGS] Allergy (Mild, Verified 01/13/25 11:18) VOMITING peanut [PEANUTS] Allergy (Mild, Verified 01/13/25 11:18) HIVES,DIARRHEA amoxicillin [From Augmentin] Allergy (Verified 01/13/25 11:18) hives, swelling, difficulty breathing clavulanic acid [From Augmentin] Allergy (Verified 01/13/25 11:18) hives, swelling mushroom Allergy (Verified 01/13/25 11:18) Rash lactose Adverse Reaction (Intermediate, Verified 01/13/25 11:18) diarrhea cepha mixlexin Allergy (Intermediate, Uncoded 01/13/25 11:18) racing heart, rash HPI HPI F/U Abd Cramps: Details: Assessment & Plan (1) Periumbilical abdominal pain: Code(s): R10.33 - Periumbilical pain Category: Medical (2) GERD (gastroesophageal reflux disease): Code(s): K21.9 - Gastro-esophageal reflux disease without esophagitis Category: Medical Qualifiers: Esophagitis presence: esophagitis presence not specified Qualified Code(s): K21.9 - Gastro-esophageal reflux disease without esophagitis (3) Irritable bowel syndrome with both constipation and diarrhea: Comment: now more bile salt diarrhea since she is status post cholecystectomy Code(s): K58.2 - Mixed irritable bowel syndrome Category: Medical (4) Abdominal bloating: Code(s): R14.0 - Abdominal distension (gaseous) Category: Medical Plan She did not tolerate the senna despite the lowest dose, even 1/2 a pill, w/o diarrhea. Yet she still has incomplete evacuation with soft stools. She will be seeing her ASSISTED LIVING MANAGER soon and I ask her to ask them to eval to possible cystocele/rectocele. She has been having very sharp/sudden periumbilical pain like an electric shock. This is precipitated with bending and lifting or climbing stairs. She will have to lay very still and it will resolve after an hour, it is not described as colicky. She feels bloated and the buttons on her jeans will cause discomfort. She has bentyl but it does not help much with this pain. Will try MOM low dose, ordering US to eval for hernia. We did obtain a prior thoracic spine XR and it showed some scoliosis but no severe DJD that would indicate a radicular pain. It is interesting though that the pain is described as an electric shock which isn't totally consistent with bowel pathology. She is being worked up for a + NEHA. She has osteoporosis, but she was on once a year infusions that caused a lot of bone pain. I am uncertain if this infusion could have some relation to her abdominal pain as well. She continues on her omeprazole bid ROV 6 weeks. Orders: Orders US abdomen complete Today R10.33 - Periumbilical pain, R14.0 - Abdominal distension (gaseous) Medications: New simethicone (Gas Relief (simethicone)) 125 mg PO QID 120 tabs 6RF abdominal distention R10.33 - Periumbilical pain, R14.0 - Abdominal distension (gaseous) magnesium hydroxide (Milk of Magnesia) 10 mL PO BEDTIME 3,780 mL 3RF K58.2 - Mixed irritable bowel syndrome simethicone (Gas Relief (simethicone)) 125 mg PO QID 120 tabs 6RF abdominal distention R10.33 - Periumbilical pain, R14.0 - Abdominal distension (gaseous) magnesium hydroxide (Milk of Magnesia) 10 mL PO BEDTIME 3,780 mL 3RF K58.2 - Mixed irritable bowel syndrome Refilled omeprazole 40 mg PO BID 180 caps 1RF K21.9 - Gastro-esophageal reflux disease without esophagitis Discontinued sennosides (Senna Laxative) Discontinued Reason: Doctor's Order 17.2 mg (2 x 8.6 mg) PO BEDTIME 60 tabs 6RF K58.2 - Mixed irritable bowel syndrome CORRESPONDENCE On 10/08/24 @ 12:12 [email or web address] Wrote To AlyssaDecember (2) Okay maybe if we are dao it's because she is feeling better. On 10/08/24 @ 11:22 Pankaj Serrato Wrote To Alyssa Pankaj Serrato removed from item. On 10/06/24 @ 15:51 Ban Ferreira Wrote To Shah (2) just took a peek at her chart, hasnt submitted stool studies yet. December. On 10/02/24 @ 17:30 Pankaj Serrato Wrote To Ban Ferreira Patient advised per message below to avoid Imodium until results are back. She asked if she could use a sterile specimen cup from pharmacy. I called our lab at [facility] to double check and was advised that it's ok for patient to obtain sterile cup from pharmacy and bring specimen to lab. Patient notified and she will do it tomorrow. Thank you Dr. Ferreira! On 10/02/24 @ 16:13 Ban Ferreira Wrote To Pankaj Serrato stool studies order, pls have her do these latest by tmrw to make sure she doesnt have C Diff. Avoid imodium until results back. Thanks V On 10/02/24 @ 15:02 Pankaj Serrato Wrote To Ban Ferreira Reba's Pt with c/o diarrhea, nausea, abdominal cramps, and upset stomach after eating for 2 weeks. Per patient she has been placed on 2 different abx for her asthma, completing the last one 2 days ago but now is having all of this symptoms. Please advise. US OF ABDOMEN 07/09/24 IMPRESSION: Unremarkable ultrasound. No ultrasound evidence of the hernia. *Ultrasound has limited sensitivity detecting some of the solid soft tissue lesions; if signs and/or symptoms persist, cross-sectional imaging, preferably MRI with IV contrast, recommended. Laboratory Tests 12/30/24 13:04 Estimated GFR > 60 Total Bilirubin 0.6 AST 36 H ALT 35 H Alkaline Phosphatase 112 C-Reactive Protein 1.08 H TODAY'S VISIT The US was un-concerning re: sharp/sudden periumbilical pain like an electric shock. This is precipitated with bending and lifting or climbing stairs. She will have to lay very still and it will resolve after an hour. She has bentyl but it does not help much with this pain. It DOES help with cramping but not the shock pain. She DOES have right scoliosis and may need to seek MRI since shock type pain is generally neuropathic and may be radicular in nature. She continues to have severe bloating, simethicone made it worse. Will try creon and consider ? SIBO. She has a new problem of elevated transaminases - she was called by her rheum and told you have to stop drinking, and since she has never drank she was offended. She has FHX of PRESTON and I explain this. Will get additional tests to confirm dx, but she is mildly overweight. She had severe nausea and GERD after a Prolia injection, and these ARE documented s/e. ROV 3 mos. [facility] Medical History Urinary pain Rotator cuff tendonitis Chest pain Diarrhea Dyspnea on exertion History of pulmonary embolism Encounter for screening examination for sexually transmitted disease Women's annual routine gynecological examination Abdominal bloating Acute diarrhea Physical exam COVID-19 Pulmonary embolism Pulmonary embolism Vaginal itching Hx of human papillomavirus infection Candidiasis of mouth and esophagus Abdominal cramping Pneumonia Bile salt-induced diarrhea History of pilonidal cyst Gastritis IBS (irritable bowel syndrome) Hypertension Pre-eclampsia Irritable bowel syndrome with both constipation and diarrhea Gallstones Surgical History H/O cervical polypectomy Hx of esophagogastroduodenoscopy H/O colonoscopy History of surgical removal of pilonidal cyst S/P tonsillectomy History of section History of cholecystectomy Family History Father Heart attack GERD (gastroesophageal reflux disease) Peptic ulcer disease Mother CHF (congestive heart failure) Afib Diverticulitis History of bowel resection Hypothyroid COVID-19 Maternal Aunt Diabetes Maternal Uncle Cancer Maternal Grandmother Cancer Brother Mental health disorder Social History Household Members: Spouse Housing: Apartment Are you a primary medicare biller to a significant other at home: No Do you presently have visiting nurse or other home services: Yes (phone visits) Alcohol intake: former Patient Tobacco Use Status: Never used Tobacco e-Cigarette/Vaping Use: Never Used Second Hand Smoke Exposure: No service: No Current occupational status: retired Cognitive needs: No Hearing needs: No Vision needs: No Female Reproductive History Menstrual Age of Menarche: 10 Review of Systems Const Denies fatigue, Denies fever(s), Denies night sweats, Denies poor appetite and Denies weight loss ENT Reports Normal hearing present, Denies dental pain, Denies dysphagia, Denies hearing loss, Denies mouth pain, Denies odynophagia, Denies throat swelling, Denies tongue swelling and Reports other (Dentition adequate) Card Reports no additional complaints Resp Reports no additional complaints GI Details: Reports abdominal pain, Denies melena, Reports bloating, Denies hematochezia, Denies constipation, Reports GI cramping, Denies dysphagia, Denies excessive flatus, Denies early satiety, Reports heartburn, Denies diarrhea, Denies nausea, Denies odynophagia, Denies vomiting and Denies hematemesis Skin/Breast Denies pruritus, Denies lesions, Denies rash and Denies jaundice Neuro Reports Normal hearing present and Denies Abnormal speech present Endo Denies fatigue Aller/Immun Denies throat swelling and Denies tongue swelling Physical Exam Vital Signs: Last Vital Signs Pulse 72 01/13/25 11:08 BP 131/75 01/13/25 11:08 BMI result Body Mass Index 34.1 Const General: cooperative, no acute distress, well developed and well groomed Nutritional Appearance: well nourished and obese Orientation/consciousness: oriented to person, oriented to place and oriented to time Limitations: No language barrier HEENT Head: Yes normocephalic and Yes atraumatic Eyes General: appearance normal, both eyes and all related structures Pupils: Equal, round and reactive pupils present Neck Neck: Yes normal visual inspection and Yes no lymphadenopathy Thyroid: Thyroid normal Resp Effort & Inspection: normal respiratory effort and able to speak in complete sentences Auscultation: clear to auscultation bilaterally Cardio Rate: regular rate Rhythm: regular rhythm Heart sounds: Normal, physiologic split S2 sound present Peripheral pulses: radial pulses present and posterior tibial pulses present GI Inspection: No distended, Yes Abdominal panniculus present and Yes obesity Palpation (GI): Soft to palpation, nontender, no guarding, not rigid and No hepatosplenomegaly present Percussion: Yes normal to percussion Auscultation: normal bowel sounds Rectal Exam - Female: deferred Skin General skin exam: no rashes or lesions noted, turgor normal, skin not dry, no jaundice, No spider nevi and no striae Rashes: no rashes Nails: normal Neuro General: oriented to person, oriented to place and oriented to time Cranial nerves: Yes Equal, round and reactive pupils present and Yes Normal hearing present Speech: No Abnormal speech present Extrem General: Yes normal to inspection, No clubbing, No cyanosis and No edema Psych Appearance: grossly normal and well kempt Mental Status: mental status grossly normal Speech and movement: Normal speech and movement present Affect: normal affect Attitude: cooperative Thought process: Normal thought process present and not confabulating Thought content: Normal thought content present Insight: Limited insight present (Psych) Judgement: Limited judgement present (Psych) Results Reviewed Results Reviewed: US OF ABDOMEN 07/09/24 IMPRESSION: Unremarkable ultrasound. No ultrasound evidence of the hernia. *Ultrasound has limited sensitivity detecting some of the solid soft tissue lesions; if signs and/or symptoms persist, cross-sectional imaging, preferably MRI with IV contrast, recommended. Laboratory Tests 12/30/24 13:04 Estimated GFR > 60 Total Bilirubin 0.6 AST 36 H ALT 35 H Alkaline Phosphatase 112 C-Reactive Protein 1.08 H Assessment & Plan Assessment & Plan (1) Periumbilical abdominal pain: Code(s): R10.33 - Periumbilical pain Category: Medical (2) Abdominal bloating: Code(s): R14.0 - Abdominal distension (gaseous) Category: Medical (3) GERD (gastroesophageal reflux disease): Code(s): K21.9 - Gastro-esophageal reflux disease without esophagitis Category: Medical Qualifiers: Esophagitis presence: esophagitis presence not specified Qualified Code(s): K21.9 - Gastro-esophageal reflux disease without esophagitis (4) Irritable bowel syndrome with both constipation and diarrhea: Comment: now more bile salt diarrhea since she is status post cholecystectomy Code(s): K58.2 - Mixed irritable bowel syndrome Category: Medical (5) Transaminitis: Comment: BASELINE LABS 12/30/24 13:04 Estimated GFR > 60 Total Bilirubin 0.6 AST 36 H ALT 35 H Alkaline Phosphatase 112 C-Reactive Protein 1.08 H CURRENT LABS US OF ABDOMEN 07/09/24 IMPRESSION: Unremarkable ultrasound. No ultrasound evidence of the hernia. *Ultrasound has limited sensitivity detecting some of the solid soft tissue lesions; if signs and/or symptoms persist, cross-sectional imaging, preferably MRI with IV contrast, recommended. Laboratory Tests Code(s): R74.01 - Elevation of levels of liver transaminase levels Category: Medical Plan The US was un-concerning re: sharp/sudden periumbilical pain like an electric shock. This is precipitated with bending and lifting or climbing stairs. She will have to lay very still and it will resolve after an hour. She has bentyl but it does not help much with this pain. It DOES help with cramping but not the shock pain. She DOES have right scoliosis and may need to seek MRI since shock type pain is generally neuropathic and may be radicular in nature. She continues to have severe bloating, simethicone made it worse. Will try creon and consider ? SIBO. She has a new problem of elevated transaminases - she was called by her rheum and told you have to stop drinking, and since she has never drank she was offended. She has FHX of PRESTON and I explain this. Will get additional tests to confirm dx, but she is mildly overweight. She had severe nausea and GERD after a Prolia injection, and these ARE documented s/e. ROV 3 mos. Orders: Orders Ferritin Today R14.0 - Abdominal distension (gaseous), R74.01 - Elevation of levels of liver transaminase levels Gamma Glutamyl Transpeptidase Today R14.0 - Abdominal distension (gaseous), R74.01 - Elevation of levels of liver transaminase levels Mitochondrial Antibody Today R14.0 - Abdominal distension (gaseous), R74.01 - Elevation of levels of liver transaminase levels Smooth Muscle Antibody Today R14.0 - Abdominal distension (gaseous), R74.01 - Elevation of levels of liver transaminase levels Alpha Fetoprotein Today R14.0 - Abdominal distension (gaseous), R74.01 - Elevation of levels of liver transaminase levels Liver Fibrosis Pnl Today R14.0 - Abdominal distension (gaseous), R74.01 - Elevation of levels of liver transaminase levels US abdomen complete Today R14.0 - Abdominal distension (gaseous), R74.01 - Elevation of levels of liver transaminase levels Medications: New [id number] 24,000-76,000 -120,000 unit (Creon) 2 caps PO BID 120 caps 6RF 30 days K58.9 - Irritable bowel syndrome, unspecified Refilled omeprazole 40 mg PO BID 180 caps 1RF K21.9 - Gastro-esophageal reflux disease without esophagitis dicyclomine 20 mg PO QID 360 tabs 2RF K58.2 - Mixed irritable bowel syndrome, R10.9 - Unspecified abdominal pain Coding Level of Care Code Est Pt Level 4 (64951) Diagnoses Periumbilical abdominal pain R10.33 Abdominal bloating R14.0 Gastroesophageal reflux disease, unspecified whether esophagitis present K21.9 Esophagitis presence: esophagitis presence not specified Irritable bowel syndrome with both constipation and diarrhea K58.2 Transaminitis R74.01 Time Spent (min) 35
[2025-01-13 11:08] VITALS: BP 131/75; PULSE 72; BMI 34.1
--- OUTSIDE RECORDS SUMMARY | 2025-01-13 12:51 | XMS_ITS | Clinical Summary ---
Author Organization [employer] Address [address] [facility] 7t [place] [address] Care Team Providers Care Permaculture Contractor Name Role Phone Johnny Casanova PharmD Unavailable [phone] Toñito Caraballo BUSINESS STRATEGIST Unavailable Unavailable Allergies Active Allergy Reactions Criticality [...] diets. She wants a referral to the auto club travel counselor. Discussed re weight reduction options including [...] retiring, so any issues or concerns, contact [facility]. All her questions were answered and [...] EST): Continue estrace cream and fu with LETTERSET PRESS SET UP OPERATOR. Refill sent to pharmacy. Assessment & Plan (10/09/2022 2:44 PM EST): Most likely secondary to atrophic vaginitis. -use estrogen cream daily x2 weeks and then 3 times per week. Pneumonia due to COVID-19 virus 08/24/2022 Polyp of cervix 08/24/2022 Assessment & Plan (03/26/2023 2:56 PM EDT): s/p resection by LETTERSET PRESS SET UP OPERATOR, more than a year ago, last PAP was normal refer to LETTERSET PRESS SET UP OPERATOR second opinion due to persistent dyspareunia Postcoital bleeding 08/24/2022 Assessment & Plan (03/26/2023 3:04 PM EDT): See previous issue and refer to LETTERSET PRESS SET UP OPERATOR Pruritus 08/24/2022 Right upper quadrant pain 08/24/2022 [...] q2wk + albuterol PRN and FU w/ biofuels processing technician Decline flue and Covid IZ today, advised [...] Provider, Generic External Data 12/22/2024 Orders Only [facility] External Provider, [facility] from Last 3 Months Immunizations Name Administration [...] EDT) Vitamin D, 25-OH, D2 8 ng/mL [facility] Comment:This test was develo ped and its analytical performancecharacteristics have been determined by [employer] [place], [place]. It hasnot been cleared or approved by the U.S. Food and DrugAdministration. This assay has been validated pursuantto the CLIA regulations and is used for clinicalpurposes.THIS TEST WAS PERFORMED AT:[employer] [id number] [place] [address]RCFZYIKMONIKA BRITTON MD,PHD Vitamin D, 25-OH, D3 21 ng/mL [facility] Comment:This test was develo ped and its analytical performancecharacteristics have been determined by [employer] [place], [place]. It hasnot been cleared or approved by the U.S. Food and DrugAdministration. This assay has been validated pursuantto the CLIA regulations and is used for clinicalpurposes. Vitamin D, 25-OH, Total 29(A) 30 - 100 ng/mL [facility] Comment:Vitamin D, 25-Hydrox y reports concentrations [...] = 30 ng/mL.For additional information, please refer tohttp://education.BeThereRewards/faq/YTD641(This link is being provided for informational/educational purposes only.) 12/30/2024 1:04 PM EDT 12/30/2024 2:05 PM EDT us Generic External Data Provider LAB BLOOD ORDERAB LES Final Result [facility] [address] [place] [address] [phone] * CBC auto differential (12/30/2024 1:04 PM EDT) White Blood Count 5.0 4.8 - 10.8 X10*3/uL [facility] Red Blood Count 4.49 4.20 - 5.50 X10*6/uL [facility] Hemoglobin 13.0 12.0 - 16.0 g/dl [facility] Hematocrit 38.4 37.0 - 47.0 % [facility] Mean Corpuscular Volume 85.5 80.0 - 98.0 fL [facility] Mean Corpuscular Hemoglobin 29.0 27.0 - 33.0 pg [facility] Mean Corpuscular HGB Conc 33.9 31.0 - 35.0 g/dl [facility] Red Cell Distribution Width 11.8 11.0 - 16.0 % [facility] Platelet Count 191 160 - 400 X10*3/uL [facility] Mean Platelet Volume 11.2 9.4 - 12.3 fL [facility] Neutrophils Percent Auto 59.9 45 - 73 % [facility] Imm Gran Pct Auto 0.4 0.0 - 0.4 % [facility] Lymphocytes Percent Auto 30.6 20 - 40 % [facility] Monocytes Percent Auto 7.1 2 - 11 % [facility] Eosinophils Percent Auto 1.2 0 - 4 % [facility] Basophils Percent Auto 0.8 0 - 2 % [facility] NRBC Pct Auto 0.0 0.0 - 0.2 /100WBC [facility] Neutrophils Absolute Auto 3.0 2.0 - 8.3 x10*3/uL [facility] Imm Gran Abs Auto 0.02 0.00 - 0.03 X10*3/uL [facility] Lymphocytes Absolute Auto 1.5 1.2 - 4.9 X10*3/uL [facility] Monocytes Absolute Auto 0.4 0.1 - 1.2 X10*3/uL [facility] Eosinophils Absolute Auto 0.1 0.0 - 0.4 X10*3/uL [facility] Basophils Absolute Auto 0.0 0.0 - 0.2 X10*3/uL [facility] NRBC Abs Auto 0.000 0.0 - 0.012 X10*3/uL [facility] 12/30/2024 1:04 PM EDT 12/30/2024 2:05 PM EDT us Generic External Data Provider LAB BLOOD ORDERAB LES Final Result [facility] [address] [place] [address] [phone] * Sed Rate by Modified Edmund (12/30/2024 1:04 PM EDT) Erythrocyte Sedimentation Rate 18 0 - 20 MM/HR [facility] Comment:Patients with polycy themia and many hemoglobin abnormalitiesmay have depressed sed rates whereas patients with anemiamay have elevated sed rates. 12/30/2024 1:04 PM EDT 12/30/2024 2:05 PM EDT us Generic External Data Provider LAB BLOOD ORDERAB LES Final Result Performing Organization Address [facility] Co de Phone Number [facility] [address] [place] [phone] * (ABNORMAL) C-reactive Protein (12/30/2024 1:04 PM EDT) Pathologist [facility] C Reactive Protein 1.08(H) < or = 0.50 mg/dL [facility] 12/30/2024 1:04 PM EDT 12/30/2024 2:05 PM EDT Generic External Data Provider LAB BLOOD ORDERAB LES Final Result Performing Organization Address [facility] de Phone Number [facility] [address] [place] [phone] * (ABNORMAL) Comprehensive Metabolic Panel (12/30/2024 1:04 PM EDT) Pathologist [facility] Sodium 146(H) 135 - 145 mmol/L [facility] Potassium 4.8 3.3 - 5.1 mmol/L [facility] Chloride 110(H) 96 - 108 mmol/L [facility] Carbon Dioxide 28 22 - 29 mmol/L [facility] Anion Gap 13 12 - 20 [facility] Urea Nitrogen (BUN) 17(H) 9 - 16 mg/dL [facility] Creatinine, Serum 0.76 0.5 - 1.4 mg/dL [facility] Estimated Glomerular Filt Rate >60 [facility] Comment:Chronic Kidney Disea se: Estimated GFR < 60 mL/min/1.23h6Lotppr Kidney Disease: Estimated GFR < 15 mL/min/1.73m2 Glucose 92 60 - 115 mg/dL [facility] Calcium 10.0 8.4 - 10.2 mg/dL [facility] Bilirubin, Total 0.6 0.0 - 1.0 mg/dL [facility] Aspartate Amino Transferase 36(H) 5 - 31 U/L [facility] Alanine Aminotransferase 35(H) 0 - 31 U/L [facility] Total Protein 7.0 6.5 - 8.0 g/dL [facility] Albumin Level 4.0 3.5 - 5.0 g/dL [facility] Alkaline Phosphatase 112 39 - 117 U/L [facility] 12/30/2024 1:04 PM EDT 12/30/2024 2:05 PM EDT us Generic External Data Provider LAB BLOOD ORDERAB LES Final Result [facility] [address] [place] [address] [phone] * NM heart perfusion SPECT stress and rest (12/22/2024 9:45 AM EDT) Anatomical Region Laterality Modality Body Nuclear Medicine 12/22/2024 9:45 AM EDT Narrative 12/23/2024 2:42 PM EDT ? [facility] ?[address] ?[place] [address] ?Nuclear Medicine Report ? Signed ? Patient: Yoselin Rodríguez ?MR#: [id number] ?? [id number] ? : 1960 ?Acct:[id number] ? Age/Sex: 64 / F ?ADM Date: 12/22/24 ? Loc: HO.CARD ? Attending Dr: Efren Rausch MD ? Ordering Physician: Efren Rausch MD ?? Date of Service: 12/22/24 ?? Procedure(s): NM fatou perf SPECT rest ?? str ?? Accession Number(s): [id number] ? cc: Iqra Nelson MD; Efren Rausch [...] DD/ 0945 ? TD/TT: 12/23/24 1200 ? Pole Peeler: ? Procedure Note Nikunj Butterfield - 12/23/[address] [address] Nuclear Medicine Report Signed Patient: Yoselin Rodríguez EMR#: [id number] : 1Acct:[id number] Age/Sex: 64 / FADM Date: 12/22/24 Loc: HO.CARD Attending Dr: Efren Rausch MD Ordering Physician: Efren Rausch MD Date of Service: 12/22/24 Procedure(s): NM fatou perf SPECT rest str Accession Number(s): [id number] cc: Iqra Nelson MD; Efren Rausch MD [...] 12/23/24 1439 DD/ 0945 TD/TT: 12/23/24 1200 Pole Peeler: us [facility] External Provider IMG NM PROCEDURES Final Result * BD DEXA Axial (10/30/2024 12:35 PM EST) Anatomical Region Laterality Modality Body Radiographic Carrol ging 10/30/2024 12:3 5 PM EST Narrative 10/30/2024 2:47 PM EST ? [facility] ? [address] ?[place], [place] [address] ? Mammography Report ? Signed ? Patient: Marcos,Ada E ?MR#: [id number] ?? [id number] ? : 1960 ?Acct:[id number] ? Age/Sex: 64 / F ?ADM Date: 10/30/ ? Loc: HO.MAMMO ? Attending Dr: Mohamed Talaat MD ? Ordering Physician: Talaat,Mohamed MD ?Results: ? Date of Service: 10/30/ ?Follow Up: ? Procedure(s): XR DEXA axial skeleton ?? Accession Number(s): [id number] ? cc: Iqra Nelson MD; Maryann Joseph MD ? EXAMINATION: ??DXA BONE DENSITY AXIAL ? HISTORY: ??Estrogen deficiency ? TECHNIQUE: Emergent One Dual energy absorptiometry (DEXA) ?? of the [...] is a trademark of the [employer]'s ?? [facility] for Metabolic Bone Disease, a World Health Organization (WHO) ?? Collaborating Center. ? Electronically signed by: ??Mehran Evans MD ??10/30/2024 02:44 PM EST ?? RP ? Dictated By: ?Mehran Evans MD ? Signed By: ?<Electronically signed by Mehran Evans MD in OV> ?10/30/24 1444 ? DD/ 1235 ? TD/TT: 10/30/24 1255 ? Pole Peeler: ? Procedure Note Donotuseinterpreter, Image - 10/30/2024 [place] [facility] [address] [place], [place] [address] Mammography Report Signed Patient: Yoselin Rodríguez EMR#: [id number] : 1Acct:[id number] Age/Sex: 64 / FADM Date: 10/30/24 Loc: HO.MAMMO Attending Dr: Maryann Joseph MD Ordering Physician: Maryann Josephesults: Date of Service: 10/30/24Follow Up: Procedure(s): XR DEXA axial skeleton Accession Number(s): [id number] cc: Iqra Nelson MD; Maryann Joseph MD EXAMINATION: DXA BONE DENSITY AXIAL HISTORY: Estrogen deficiency TECHNIQUE: Emergent One Dual energy absorptiometry (DEXA) of the lumbar [...] of the [employer]'s [facility] for Metabolic Bone Disease, a World Health Organization (WHO) Collaborating Center. Electronically signed by: Mehran Evans MD 10/30/2024 02:44 PM EST RP Dictated By: Mehran Evans MD Signed By: <Electronically signed by Mehran Evans MD in OV> 10/30/24 1444 DD/ 1235 TD/TT: 10/30/24 1255 Pole Peeler: [facility] External Provider IMG DXA PROCEDURES Final Result * Lipid Panel with Reflex to Direct LDL (11/08/2023 12:00 AM EST) Triglycerides 128 <150 mg/dL [facility] Comment:Desirable Triglyceri de: less than 150 mg/dLBorderline High Triglyceride 150-199 mg/dLHigh Triglyceride: 200-499 mg/dLVery High Triglyceride: greater than or equal to 5OO mg/dL Cholesterol 169 <200 mg/dL [facility] Comment:Desirable Cholestero l: less than 200 mg/dLBorderline High Cholesterol: 200-239 mg/dLHigh Cholesterol: greater than 239 mg/dL LDL Cholesterol Calculated 82 <100 mg/dL [facility] Comment:Desirable LDL: less than 100 mg/dLNear Optimal/Above Optimal LDL: 110- 129 mg/dLBorderline High LDL: 130-159 mg/dLHigh LDL: 160-189 mg/dLVery High LDL: greater than or equal to 190 mg/dL HDL Cholesterol 62 >40 mg/dL [facility] Comment:Desirable HDL: great er than 40 mg/dL Note: This HDL assay may give artificially low results in patients with liver disease. Blood 11/08/2023 11/08/2023 us Iqra Nelson MD LAB BLOOD ORDERABLES Fin al Result [facility] [address] [place] [address] [phone] * HPV mRNA E6/E7 w/Reflex to HPV Genotypes 16, 18/45 (05/31/2023 1:12 PM EDT) HPV nRNA E6/E7 Not Detected Not Detected [facility] Comment:Methodology: Transcr iption-Mediated AmplificationThis assay detects E6/E7 viral messenger RNA (mRNA) from 14high-risk HPV types (16,18,31,33,35,39,45,51,52,56,58,59,66,68).Cervical sources are required for HPV testing.If a vaginal source from a patient who has had atotal hysterectomy with removal of cervix wassubmitted, please contact the testing laboratoryfor alternative testing options.For additional information, please refer tohttp://education.WhoWantsMe/faq/HJU685l7(This link if provided for information/educational purposes only.)THIS TEST WAS PERFORMED AT:[employer] [place] [phone] HARRISON MD HPV mRNA E6/E7 [facility] HPV 16 RNA [facility] HPV 18/45 RNA [facility] 05/31/2023 1:12 PM EDT 06/01/2023 9:00 AM EDT [facility] External Provider LAB CYT OLOGY ORDERABLES Final Result [facility] [address] [place] [address] [phone] * Pap Smear (05/31/2023 1:12 PM EDT) 05/31/2023 1:12 PM EDT 06/01/2023 9:00 AM EDT Narrative [facility] - 06/12/2023 1:57 PM EDT ----- ------- Name: MarcosYoselin Brody ?Age/Sex: 62/F ? : 1960 Unit#: [id number] ?? Attend Dr: Ale Francisco CNM ?Re05/31/23 ?Status: DEP REF ? Location: HO.LNP ?Disch: ? ----- ------- SPEC : [id number] ?RECD: 06/01/23 ? STATUS: ??SOUT ? REQ NUM: [id number] ? AGATHA: 05/31/23-1312 ? SUBM DR: Ale [...] 66, 68) ? HPV testing performed by [employer] [facility], [place], [place]. ??See reference laboratory ?? portion of the EMR for entire report. ?Clinical Information LMP: No menses Previous PAP test: 07/19/21, abnormal Other history: +HPV, personal history of other infectious and parasitic diseases ? Material Received ?? ThinPrep-Cervical Copies To: ?? Iqra Nelson MD ?? [address] [facility] ?? [place] [address] ? Ale Francisco CNM ?? [address] [facility] [place] ?? [place] [address] ?? [phone] ----- ------- Signed (signature on file) Yajaira Dash 06/12/23 9289 ? ----- ------- ? END OF REPORT ? [facility] External Provider LAB CYT OLOGY ORDERABLES Final Result [facility] [address] [place] [phone] * Mammography Report 1 (04/21/2021 1:15 [...] Most Recently Relevant to Health Maintenance Insurance [employer] CARE < 65 DENTAL [facility] Care Teams Permaculture Contractor Relationship Specialty Start Date End Date Johnny Casanova, Ti [address] [place] [address] Pharmacist Internal Medicine 09/26/22 Toñito Caraballo FNP [address] [place] [address] Nurse Practitioner Family Medicine 08/08/23
--- OUTSIDE RECORDS SUMMARY | 2025-01-13 12:51 | XMS_ITS | Encounter Summary ---
Author Organization [employer] Address [address] [facility] 7t [place] [address] Care Team Providers Care Security Incident Response Engineer Name Role Phone Iqra Nelson MD Primary Care Provider + Johnny Casanova PharmD Unavailable [phone] Toñ[place] Caraballo Unavailable Unavailable Reason for Visit * Reason Onset Date Comments Med Refill Appointment 10/11/2023 LVM-Re: her apt for today as [id number] @2pm Encounter Details Date Type Department Care Team (Late st Contact Info) Description 10/11/2023 Refill [facility] [address] [place] [address] Toñito Caraballo FNP Social History Tobacco Use [...] as of this encounter Care Teams Security Incident Response Engineer Relationship Specialty Start Date End Date Iqra Nelson MD [address] [place] [phone] PCP - General Family Medicine 12/05/16 04/08/24 Johnny Casanova PharmD [address] [place] [phone] Pharmacist Internal Medicine 09/26/22 Toñito Caraballo FNP [address] [place] [phone] Nurse Practitioner Family Medicine 08/08/23 documented as of this encounter
--- OUTSIDE RECORDS SUMMARY | 2025-01-13 12:51 | XMS_ITS | Encounter Summary ---
Author Organization [employer] [facility] Address [address] [facility] 7t [place] [address] Care Team Providers Care Violin Repairer Name Role Phone Iqra Nelson MD Primary Care Provider + Johnny Casanova PharmD Unavailable [phone] Toñito Caraballo CRIMINALIST TECHNICIAN Unavailable Unavailable Encounter Details Date Type Department Care Team ([facility] st Contact Info) Description 09/26/2022 Orders Only [facility] [address] [place] [address] Johnny Casanova, PharmD [address] [place] [address] Social History Tobacco Use Types Packs/Day Years [...] documented as of this encounter Care Teams Violin Repairer Relationship Specialty Start Date End Date Iqra Nelson MD [address] [place] [address] PCP - General Family Medicine 12/05/16 04/08/24 Johnny Casanova, PharmD [address] [place] [phone] Pharmacist Internal Medicine 09/26/22 Toñito aCraballo FNP [address] [place] [address] Nurse Practitioner Family Medicine 08/08/23 documented as of this encounter
--- OUTSIDE RECORDS SUMMARY | 2025-01-13 12:51 | XMS_ITS | Encounter Summary ---
Author Organization [employer] Address [address] [facility] 7t [place] [address] Care Team Providers Care Remittance Clerk Name Role Phone Iqra Nelson MD Primary Care Provider + Johnny Casanova PharmD Unavailable [phone] Toñito Caraballo RETURN AGENT Unavailable Unavailable Encounter Details Date Type Department Care Team ([facility] st Contact Info) Description 02/12/2024 Orders Only [facility] MEDICINE [address] [place] [address] Provider, MD Antoine Social History Tobacco Use [...] documented as of this encounter Care Teams Remittance Clerk Relationship Specialty Start Date End Date Iqra Nelson MD [address] [place] [phone] PCP - General Family Medicine 12/05/16 04/08/24 Johnny Casanova PharmD [address] [place] [address] Pharmacist Internal Medicine 09/26/22 Toñito Caraballo FNP [address] [place] [address] Nurse Practitioner Family Medicine 08/08/23 documented as of this encounter
--- OUTSIDE RECORDS SUMMARY | 2025-01-13 12:52 | XMS_ITS | Encounter Summary ---
Author Organization [employer] [facility] Address [address] [facility] 7t [place] [address] Care Team Providers Care Conveyor Attendant Name Role Phone Iqra Nelson MD Primary Care Provider + Johnny Casanova PharmD Unavailable [phone] Toñito Caraballo DEMOGRAPHER Unavailable Unavailable Encounter Details Date Type Department Care Team ([facility] st Contact Info) Description 03/08/2023 Abstract [facility] MEDICINE [address] [place] [address] Iqra Nelson MD [address] [place] [address] Social History Tobacco Use Types Packs/Day Years [...] documented as of this encounter Care Teams Conveyor Attendant Relationship Specialty Start Date End Date Iqra Nelson MD [address] [place] [address] PCP - General Family Medicine 12/05/16 04/08/24 Johnny Casanova, RachelD [address] [place] [phone] Pharmacist Internal Medicine 09/26/22 Toñito Caraballo FNP [address] [place] [address] Nurse Practitioner Family Medicine 08/08/23 documented as of this encounter
--- OUTSIDE RECORDS SUMMARY | 2025-01-13 12:52 | XMS_ITS | Encounter Summary ---
Author Organization [email or web address] Address [address] [facility] 7t [place] [address] Care Team Providers Care Brake Operator Name Role Phone Iqra Nelson MD Primary Care Provider + Johnny Casanova PharmD Unavailable [phone] [place] Caraballo Unavailable Unavailable Reason for Visit * Reason Comments Med Refill Encounter Details Date Type Department Care Team (Late st Contact Info) Description 12/28/2022 Refill [facility] MEDICINE [address] [place] [address] Toñito Caraballo FNP Major depressive disorder, recurrent, [...] Diagnoses Diagnosis Major depressive disorder, recurrent, moderate ([facility]) Major depressive disorder, recurrent episode, moderate documented in this encounter Additional Health Concerns Assessment Noted Time PHQ-9 Depression Total Score: 16 023 1:04 PM EDT documented as of this encounter Care Teams Brake Operator Relationship Specialty Start Date End Date Iqra Nelson MD [address] [place] [phone] PCP - General Family Medicine 12/05/16 04/08/24 Johnny Casanova, Ti [address] [place] [phone] Pharmacist Internal Medicine 09/26/22 Toñito Caraballo FNP [address] [place] [address] Nurse Practitioner Family Medicine 08/08/23 documented as of this encounter
--- OUTSIDE RECORDS SUMMARY | 2025-01-13 12:52 | XMS_ITS | Data Portability ---
Author Organization [employer] [facility], [facility] Address [address] [place] [id number] Care Team Providers Care Assistant Hvac Mechanic Name Role Phone [facility] OTHER [phone] [facility] OTHER Assessment Encounter Date Assessment Date Assessment LastModified by Organization Details LastModified Time 05/05/2023 05/05/2023 I provided real -time medical direction via phone for this encounter, and was available for additional phone based assistance as needed. I have reviewed and agree with the Assessment and Plan as documented by the Pleasure Craft Sailor [email or web address] Not available 05/05/2023 17:13:47 08/27/2024 08/27/2024 service [...] QL IA, respiratory specimen 2023 [facility], [address] [place] [address], [phone] 19:41:18 rapid flu (A+B) [address], [phone] 19:41:57 Referral None recorded. Procedures None recorded. Surgeries None recorded. Imaging None recorded. Medication Orders prednisone 20 mg tablet [address] [id number], [address] [place] [address], [address], 4 16:22:59 prednisone 20 mg tablet 2023 024 [id number] [address] [place] [address], [address], 4 16:24:53 benzonatate 100 mg capsule 2023 024 [id number] [address] [place] [address], [address], 4 16:24:53 azithromyci n 250 mg tablet 2022 023 [id number] [address] [place] [address], [address], 3 17:11:16 Augmentin 875 mg-125 mg tablet 2022 023 [id number] [address] [place] [address], [address], 3 16:07:33 metronidazo le 500 mg tablet 2021 022 [id number] [address] [place] [address], [address], 2 18:29:57 metronidazo le 500 mg tablet 2021 022 krallo Not available 2 09:06:30 Patient TargetsNo targets recorded. Patient InstructionsNo instructions recorded. Reason for Referral None Reported. Results Created Date Observation Date Name Description Value Unit Range Abnormal Flag Note LastModifiedBy Organization Detail LastModifiedTime 08/27/20 24 08/27/2024 rapid flu (A+B) Flu negati ve Not Available [facility] ed [address] [place] [address], [phone] 08/27/2024 19:14:26 08/27/20 24 08/27/2024 rapid SARS CoV 2 Ag, QL IA, respi rator y speci men rapid SARS CoV 2 Ag, QL IA, respiratory specimen negati ve Not Available Main - [facility] ed [address] [place] [address], [phone] 08/27/2024 19:14:26 Result Notes None recorded. Medical [...] Not available Not available Not available 05/05/2023 06617 RxNorm Not Available [facility] - production 4 03:47:03 3052 ibuprofen medicatio n hives Not available Not available 05/05/2023 5640 RxNorm SOB Karen Giraldo MD [address] [place] [address],[address], [place], [phone], [employer] 3 17:17:13 3053 Augmentin medicatio n dyspnea Not available Not available 05/05/2023 97191 2 RxNorm Urtic aria Karen Giraldo MD [address] [place] [address],[address], [place], [phone], [employer] 3 17:18:03 Medications Name Sig Start Date [...] Not Available No t Available [employer] Web Operations Specialist active Not Available Not Available No [...] t Available Zenpep 20,000 unit-63,000 unit-84,000 unit capsule,gerrado yed release TAKE 1 CAPSULE BY MOUTH [...] 3 98 % 98 % 71 /min 50625.8 8 g 97.1 [degF] 16 /min 181 [...] Address Organization Details Last Updated DateTime 05/05/2023 09033.82 g Lexy Mendoza [address] [place] [address],[address], [place], [phone], [employer] [facility] 05/05/2023 17:09:15 Date Recorded Oxygen saturation Oxygen saturation in Arterial blood by Pulse oximetry Body weight Respiratory rate Heart rate Body temperature Systolic blood pressure Diastolic blood pressure Provider Name and Address Organization Details Last Updated DateTime 4 99 % 99 % 31986.5 36 g 16 /min 82 /min 98 [degF] 164 mm[Hg] 72 mm[Hg] Not Available [employer] [employer] 4 16:20:14 Date Recorded Body temperature Heart rate Respiratory rate Oxygen saturation Oxygen saturation in Arterial blood by Pulse oximetry Systolic blood pressure Diastolic blood pressure Provider Name and Address Organization Details Last Updated DateTime 2 98.6 [degF] 80 /min 16 /min 100 % 100 % 161 mm[Hg] 78 mm[Hg] Orlin Ruiz MD [address] [facility],[address], [place], [phone], [employer] [facility] 2 18:30:24 Social History None recorded. Functional [...] 1109 Orlin Ruiz MD Main - [facility] [address] [place] [phone] 01/05/2022 18:15:37 06/07/2022 14:14:50 Acute pelvic pain 702692340 R10.2 Reports history of cramping after cervical polyp removal. Reports spotting, on re-assessm ent with telecommunications officer, passing fishy-sme lling white discharge. No abdominal tenderness on telecommunications officer examinatio n to suggest referred intra-abdo mary process. Reports symptoms are not consistent with UTI, so LE on UA likely represents inflammati on versus contaminat ion. Unable to perform pelvic examinatio n with telecommunications officer so difficult to assess for other pelvic pathology. Would benefit from close follow-up by physician who performed the procedure (Dr. Goldsmith?? ) Will treat empiricall y with Flagyl for BV in the interim. 12711 Andrea Thorpe MD Main - [facility] [address] [place] [phone] 04/24/2023 16:05:20 04/24/2023 23:29:29 Acute otitis media 8820194 H66.92 Patient with history of adult ear infection presents with typical symptoms of ear pain. Pleasure Craft Sailor examinatio n consistent with ear infection. Will treat with augmentin. They can pick it up tonight, so did not give anything via telecommunications officer. [id number] Karen Giraldo MD Main - [facility] [address] [place] [phone] 05/05/2023 17:08:26 05/07/2023 07:15:01 Acute otitis media 0165615 H66.92 Patient reports she has had azithromyc [...] or middle ear/ inner ear fluid drain [id number] Domi Garland MD [facility] [employer] [address] [place] [phone] 08/27/2024 16:20:07 08/28/2024 00:15:45 Acute exacerbation of chronic obstructive pulmonary disease 883080982 J44.1 Health Concerns Section Related Observation LastModified by Organization Detai ls LastModified Time None Recorded Concern Status LastModified by Organization Details LastModified Time None Recorded Advance Directives Directive None Recorded Payers Encounter Date Sequence Insurance Name Policy Number Policy Barrow Covered Member ID Barrow Member ID Guarantor Name 01/05/2022 1 [facility] - DOS PRIOR TO 2022 - DUAL ELIGIBLE (MEDICARE REPLACEMENT/AD VANTAGE - HMO) Yoselin Rodríguez [id number] Yoselin Rodríguez 04/24/2023 1 [employer] C[employer] - DOS ON OR AFTER 2022 - DUAL ELIGIBLE - ALF OPTIONS AND ONE CARE (MEDICARE REPLACEMENT/AD VANTAGE - HMO) Yoselin Rodríguez [id number] Yoselin Rodríguez 05/05/2023 1 [employer] CARE ALLIANCE - DOS ON OR AFTER 2022 - DUAL ELIGIBLE - ALF OPTIONS AND ONE CARE (MEDICARE REPLACEMENT/AD VANTAGE - HMO) Yoselin Rodríguez [id number] Yoselin Rodríguez 08/27/2024 1 [facility] - DOS ON OR AFTER 2022 - DUAL ELIGIBLE - ALF OPTIONS AND ONE CARE (MEDICARE REPLACEMENT/AD VANTAGE - HMO) Yoselin Rodríguez [id number] Yoselin Rodríguez Notes Date Note Type Note [...] with her previous UTI. Orlin Ruiz MD [address] [place] [address],[address], [place], [phone], [employer] [facility] 01/05/2022 18:31:02 04/24/2023 text/html HPI: Severe left ear ache .................... .................... .................... .................... .................... .................... .................... . CRC Nursing Assessment: Comments: [facility] triage nurse calling on behalf of member with request for MIH visit for complaints of outer ear discomfort for 3 days Aware MIH visit does not include inner ear eval. Request instED visit to eval unsure fever/chills Verify member name/- Andrea Thorpe MD [address] [place] [address],[address] [facility], [place], [phone] [employer] 04/24/2023 16:07:52 05/05/2023 text/html HPI: mbr with know ear infection for two weeks/nasal congestion/moderate pain, recent ED visit ordered Fluconazole, mbr looking for oral antibiotics, requesting MIH. Protocol Used: Ear - Discharge Protocol-Based Disposition: Consider instED, [facility] Community Clinician, or PCP visit within 24 [...] .................... .................... .................... .................... .................... .................... ........... Pleasure Craft Sailor Note From Estrada Jain: Dispatched to the [...] Patient noted to have a steady gait. [facility] contacted to discuss patient presentation, complaints, and clinical findings. [facility] orders Azythromycin 500mg PO be given to [...] .................... . Disposition: Fulfilled Karen Giraldo MD [address] [place] [address],[address], [place], [phone], [employer] [facility] 05/05/2023 22:29:41 08/27/2024 text/html HPI: Member calling [...] any additional information to process this visit. Pleasure Craft Sailor Organization Information for Shantanu Olson imoji Legal Name: [facility] Address: [address] [place] [address] Telemetry Nurse: Zachary Heredia MD [place] No.: [id number] Pleasure Craft Sailor POC Test Results from Shantanu Olson [employer]HEEL Rapid COVID antigen (16:14:44) COVID: - Attachments uploaded as part of this test result can be found under Documents section. Rapid influenza antigen (16:14:45) Flu: - Attachments uploaded as part of this test result can be found under Documents section. .................... .................... .................... .................... .................... .................... .................... . Pleasure Craft Sailor Note From Shantanu Olson: Pt co dry [...] clear bilaterally, Covid and flu swab neg. [facility] Dada contacted and 20mg prednisone given PO, right meds, dose, date and route. RX called in for prednisone and benzonatate and continue with nebulizer treatments.. Pt education on signs indicating the ER. Pt advised to continue with cover mat machine operator appt. Pt advised to follow up with PCP. .................... .................... .................... .................... .................... .................... .................... . [facility] Consulted: Domi Garland .................... .................... .................... .................... .................... .................... .................... . Disposition: Viviana Garland MD [address] [facility],[address], [place], [phone], [employer] [facility] 08/27/2024 19:14:58 OBGyn Episode No OBEpisode recorded.
--- OUTSIDE RECORDS SUMMARY | 2025-01-13 12:52 | XMS_ITS | Encounter Summary ---
Author Organization [employer] [facility] Address [address] [facility] [address] [place] [address] Care Team Providers Care Crm Business Analyst Name Role Phone Iqra Nelson MD Primary Care Provider + Johnny Casanova PharmD Unavailable [phone] Toñito Caraballo Unavailable Unavailable Reason for Visit * Reason Comments Med Refill Encounter Details Date Type Department Care Team (Late st Contact Info) Description 04/22/2023 Refill [facility] MEDICINE [address] [place] [address] Toñito Caraballo FNP Social History Tobacco Use [...] documented as of this encounter Care Teams Crm Business Analyst Relationship Specialty Start Date End Date Iqra Nelson MD [address] [place] [address] PCP - General Family Medicine 12/05/16 04/08/24 Johnny Casanova PharmD [address] [place] [address] Pharmacist Internal Medicine 09/26/22 Toñito Caraballo FNP [address] [place] [address] Nurse Practitioner Family Medicine 08/08/23 documented as of this encounter
--- OUTSIDE RECORDS SUMMARY | 2025-01-13 12:52 | XMS_ITS | Encounter Summary ---
Author Organization [employer] [facility] Address [address] [facility] 7t [place] [address] Care Team Providers Care Optical Mechanic Name Role Phone Iqra Nelson MD Primary Care Provider + Johnny Casanova PharmD Unavailable [phone] Toñito Caraballo GRINDING ROOM INSPECTOR Unavailable Unavailable Encounter Details Date Type Department Care Team ([facility] st Contact Info) Description 10/10/2022 Orders Only [facility] MEDICINE [address] [place], [place] [phone] Iqra Nelson MD [address] [place], [place] [phone] Vitamin D deficiency (Primary Dx); Senile osteoporosis [...] documented as of this encounter Care Teams Optical Mechanic Relationship Specialty Start Date End Date Iqra Nelson MD [address] [place] [address] PCP - General Family Medicine 12/05/16 04/08/24 Johnny Casanova, Ti [address] [place] [address] Pharmacist Internal Medicine 09/26/22 Toñito Caraballo FNP [address] [place] [address] Nurse Practitioner Family Medicine 08/08/23 documented as of this encounter
--- OUTSIDE RECORDS SUMMARY | 2025-01-13 12:52 | XMS_ITS | Encounter Summary ---
Author Organization [employer] Address [address] [facility] 7t [place] [address] Care Team Providers Care Sheet Rocker Name Role Phone Iqra Nelson MD Primary Care Provider + Johnny Casanova PharmD Unavailable [phone] Toñito Caraballo Unavailable Unavailable Reason for Visit * Reason Comments Med Refill Encounter Details Date Type Department Care Team (Late st Contact Info) Description 07/20/2023 Refill [facility] MEDICINE [address] [place] [address] Toñito Caraballo FNP Social History Tobacco Use [...] documented as of this encounter Care Teams Sheet Rocker Relationship Specialty Start Date End Date Iqra Nelson MD [address] [place] [address] PCP - General Family Medicine 12/05/16 04/08/24 Johnny Casanova PharmD [address] [place] [address] Pharmacist Internal Medicine 09/26/22 Toñito Caraballo FNP [address] [place] [address] Nurse Practitioner Family Medicine 08/08/23 documented as of this encounter
--- OUTSIDE RECORDS SUMMARY | 2025-01-13 12:52 | XMS_ITS | Encounter Summary ---
Author Organization [employer] Address [address] [facility] 7t [place] [address] Care Team Providers Care Hollow Core Door Frame Assembler Name Role Phone Iqra Nelson MD Primary Care Provider + Johnny Casanova PharmD Unavailable [phone] Toñito Caraballo Unavailable Unavailable Reason for Visit * Reason Comments Med Refill Encounter Details Date Type Department Care Team (Late st Contact Info) Description 02/26/2023 Refill [facility] MEDICINE [address] [place] [address] Toñito Caraballo FNP Major depressive disorder, recurrent, [...] once per day Blood Pressure No Johnny Casnaova PharmD documented as of this encounter Visit Diagnoses Diagnosis Major depressive disorder, recurrent, moderate ([facility]/HCC) Major depressive disorder, recurrent episode, moderate documented in this encounter Additional Health Concerns Assessment Noted Time PHQ-9 Depression Total Score: 10 023 3:45 PM EDT documented as of this encounter Care Teams Hollow Core Door Frame Assembler Relationship Specialty Start Date End Date Iqra Nelson MD [address] [place] [address] PCP - General Family Medicine 12/05/16 04/08/24 Johnny Casanova, RachelD [address] [place] [address] Pharmacist Internal Medicine 09/26/22 Toñito Caraballo FNP [address] [place] [address] Nurse Practitioner Family Medicine 08/08/23 documented as of this encounter
--- OUTSIDE RECORDS SUMMARY | 2025-01-13 12:52 | XMS_ITS | Encounter Summary ---
Author Organization [employer] [facility] Address [address] [facility] 7t [place] [address] Care Team Providers Care Remote Mortgage Underwriter Name Role Phone Iqra Nelson MD Primary Care Provider + Johnny Casanova PharmD Unavailable [phone] Toñito Caraballo Unavailable Unavailable Reason for Visit * Reason Comments Med Refill Encounter Details Date Type Department Care Team (Late st Contact Info) Description 02/21/2023 Refill [facility] MEDICINE [address] [place] [address] Toñito Caraballo FNP Social History Tobacco Use [...] documented as of this encounter Care Teams Remote Mortgage Underwriter Relationship Specialty Start Date End Date Iqra Nelosn MD [address] [place] [address] PCP - General Family Medicine 12/05/16 04/08/24 Johnny Casanova PharmD [address] [place] [address] Pharmacist Internal Medicine 09/26/22 Toñito Caraballo FNP [address] [place] [address] Nurse Practitioner Family Medicine 08/08/23 documented as of this encounter
== END 2025-01-13 11:57 | disposition home or self-care (01) ==
LOC: HO.HGI 11:03
PROVIDERS: PCP Internal Medicine; Visit Provider Nurse Practitioner
DX: R10.33 Periumbilical pain (principal); R14.0 Abdominal distension (gaseous); K21.9 Gastro-esophageal reflux disease without esophagitis; K58.2 Mixed irritable bowel syndrome; R74.01 Elevation of levels of liver transaminase levels
CPT/HCPCS: 99214

== ENCOUNTER → 2025-01-13 11:02 | Outpatient (BNVA) | payer OTHER, SELFPAY | PROVIDERS: PCP Internal Medicine; Visit Provider Nurse Practitioner | DX: K21.9 Gastro-esophageal reflux disease without esophagitis (principal); K58.2 Mixed irritable bowel syndrome; R14.0 Abdominal distension (gaseous); R10.33 Periumbilical pain; R74.01 Elevation of levels of liver transaminase levels | CPT/HCPCS: 99212 ==

== ENCOUNTER 2025-03-05 10:21 | Outpatient (REF) | payer OTHER, SELFPAY ==
--- NOTE | ~2025-03-05 | US_ITS ---
CLINICAL HISTORY: R74.01 - Elevation of levels of liver transaminase levels US abdomen complete with color Doppler Comparison: None Findings: The visualized pancreas, aorta, and inferior vena cava are unremarkable. Liver normal size and mildly echogenic. Right lobe 12.1 cm length. No focal hepatic masses. Common duct 3.0 mm diameter. Post cholecystectomy. No sonographic Machuca sign. Main portal vein antegrade. Right kidney normal size, 9.3 cm in length. Normal cortical width and echotexture. No solid or cystic renal masses. No nephrolithiasis. No hydronephrosis. Left kidney normal, 9.0 cm in length. Normal cortical width and echotexture. No solid or cystic renal masses. No nephrolithiasis. No hydronephrosis. Spleen measures 11.2 cm. No splenic masses. No ascites. No lymphadenopathy. Impression: 1. Post cholecystectomy. 2. Mildly echogenic liver reflecting mild diffuse hepatic steatosis or diffuse hepatocellular disease. No focal hepatic lesions. This document has been electronically signed by: Tyler Chavez MD on 03/05/2025 12:00:10
--- OUTSIDE RECORDS SUMMARY | 2025-03-05 11:42 | XMS_ITS | Encounter Summary ---
Author Organization [employer] Address [address] [facility] 7t [place] [address] Care Team Providers Care Manager Food Safety Name Role Phone Iqra Nelson MD Primary Care Provider + Johnny Casanova PharmD Unavailable [phone] Toñito Caraballo Unavailable Unavailable Reason for Visit * Reason Onset Date Comments Med Refill Appointment 10/11/2023 LVM-Re: her apt for today as [id number] @2pm Encounter Details Date Type Department Care Team (Late st Contact Info) Description 10/11/2023 Refill [facility] MEDICINE [address] [place] [address] Toñito Caraballo FNP Social History Tobacco Use [...] your housing situation today? I have nikky sing 06/25/[address] you li [...] documented as of this encounter Care Teams Manager Food Safety Relationship Specialty Start Date End Date Iqra Nelson MD [address] [place] [address] PCP - General Family Medicine 12/05/16 04/08/24 Johnny Casanova PharmD [address] [place] [address] Pharmacist Internal Medicine 09/26/22 Toñito Caraballo FNP [address] [place] [address] Nurse Practitioner Family Medicine 08/08/23 documented as of this encounter
== END 2025-03-05 10:22 | disposition home or self-care (01) ==
LOC: HO.US 10:21
PROVIDERS: PCP Internal Medicine; Visit Provider Nurse Practitioner
DX: R74.01 Elevation of levels of liver transaminase levels (principal); R14.0 Abdominal distension (gaseous)
CPT/HCPCS: 76700

== ENCOUNTER → 2025-03-05 10:22 | Outpatient (BNV) | payer OTHER, SELFPAY | PROVIDERS: PCP Internal Medicine; Visit Provider Radiology Diagnostic Radiology | DX: Z90.49 Acquired absence of other specified parts of digestive tract (principal); R74.01 Elevation of levels of liver transaminase levels | CPT/HCPCS: 76700 ==

== ENCOUNTER 2025-04-08 12:32 | Outpatient (AMB) | payer OTHER, SELFPAY ==
--- NOTE | 2025-04-08 12:42 | A.OFFPC_ITS ---
Vital Signs 04/08/25 12:58 Height 4 ft 10 in Weight 162 lb BMI 33.9 BP 120/72 Blood Pressure Location Lt brachial Position Sitting Intake Visit Reasons: annual exam Intake Note: Patient here for an annual physical exam Psychiatry Adult Physician Required: No Accompanied by: Self / Same As Patient Allergies cephalexin Allergy (Severe, Verified 04/08/25 13:29) Rash seafood Allergy (Severe, Verified 04/08/25 13:29) Anaphylaxis vancomycin (VANCOMYCIN) Allergy (Severe, Verified 04/08/25 13:29) ANAPHYLAXIS, hives aspirin (ASPIRIN) Allergy (Intermediate, Verified 04/08/25 13:29) rash, asthma codeine (CODEINE) Allergy (Mild, Verified 04/08/25 13:29) rash egg (EGGS) Allergy (Mild, Verified 04/08/25 13:29) VOMITING peanut (PEANUTS) Allergy (Mild, Verified 04/08/25 13:29) HIVES,DIARRHEA amoxicillin (From Augmentin) Allergy (Verified 04/08/25 13:29) hives, swelling, difficulty breathing clavulanic acid (From Augmentin) Allergy (Verified 04/08/25 13:29) hives, swelling mushroom Allergy (Verified 04/08/25 13:29) Rash lactose Adverse Reaction (Intermediate, Verified 04/08/25 13:29) diarrhea cepha mixlexin Allergy (Intermediate, Uncoded 04/08/25 13:29) racing heart, rash Medication List - Last Reconciled 04/08/25 by Iqra Lawrence MD acetaminophen (Tylenol Extra Strength) 500 mg PO Q6H PRN 30 days albuterol sulfate 90 mcg/actuation 90 mcg inhalation DAILY albuterol sulfate 2.5 mg (3 mL) inhalation TID PRN calcium carbonate 600 mg PO BID chlorthalidone 25 mg PO DAILY 90 days cyclobenzaprine 5 mg PO BEDTIME dicyclomine 20 mg PO QID dupilumab (Dupixent) 200 mg (1.14 mL) subcut Q2W ergocalciferol (vitamin D2) 1,250 mcg PO QWEEK 90 days estradiol 0.01%(0.1mg/gram) 1 g vaginal DAILY 30 days hydroxyzine HCl 10 - 20 mg PO Q6H PRN fglezb-rkxgvrkb-djifbzi 24,000-76,000 -120,000 unit (Creon) 2 caps PO BID 30 days lisinopril 40 mg PO DAILY 90 days lorazepam 1 mg PO DAILY PRN melatonin 3 mg PO BEDTIME omeprazole 40 mg PO BID sumatriptan succinate 50 mg PO DAILY PRN Symbicort 160-4.5 mcg/actuation (budesonide-formoterol) 2 puffs PO BID NS trazodone 50 mg PO DAILY Tobacco use date assessed: 04/08/25 Fall risk assessment: No Falls in past year Last assessed Fall Risk: 04/08/25 Dental Screening Dental Screen Date: 04/08/25 Did you have a dental visit in the last 12 months?: No Did you have a dental problem in the last 6 months where you did not have access to dental care?: No Was dental information given to patient?: Patient has dentist HPI HPI Comments History of Present Illness Details The patient is a 64-year-old female presenting for a physical exam. 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 She underwent a bone density scan this year, which confirmed the diagnosis. She has Chronic Obstructive Pulmonary Disease (COPD) and uses Symbicort as part of her management plan. The condition was noted to be active during the visit. The patient reports a history of depression with a PHQ-9 score of 8. She was previously on fluoxetine, which was discontinued due to palpitations and uncontrolled blood pressure. She has a history of fatty liver, with recent liver enzyme tests showing elevated levels. The condition was identified after starting gastrocaine treatment. The patient has hypertension, managed with lisinopril and chlorthalidone. Her blood pressure was previously uncontrolled while on fluoxetine. She has hyperlipidemia, although recent cholesterol levels have not been checked. Preventative care measures include tetanus and influenza vaccinations, mammography, Pap smear, and colonoscopy screenings. - Tetanus vaccination discussed, last re ceived 10 years ago - Influenza vaccination discussed - Mammography screening performed in , not yet done this year - Bone density scan performed this year, confirmed osteoporosis - Pap smear performed in 2022, negative results - Colonoscopy performed in 2017, next in 2027. [facility] Medical History (Updated 04/09/25 @ 04:18 by Iqra Lawrence MD) Physical exam Urinary pain Rotator cuff tendonitis Chest pain Diarrhea Dyspnea on exertion History of pulmonary embolism Encounter for screening examination for sexually transmitted disease Women's annual routine gynecological examination Abdominal bloating Acute diarrhea COVID-19 Pulmonary embolism Pulmonary embolism Vaginal itching Hx of human papillomavirus infection Candidiasis of mouth and esophagus Abdominal cramping Pneumonia Bile salt-induced diarrhea History of pilonidal cyst Gastritis IBS (irritable bowel syndrome) Hypertension Pre-eclampsia Irritable bowel syndrome with both constipation and diarrhea Gallstones Surgical History H/O cervical polypectomy Hx of esophagogastroduodenoscopy H/O colonoscopy History of surgical removal of pilonidal cyst S/P tonsillectomy History of section History of cholecystectomy Family History Father Heart attack GERD (gastroesophageal reflux disease) Peptic ulcer disease Mother CHF (congestive heart failure) Afib Diverticulitis History of bowel resection Hypothyroid COVID-19 Maternal Aunt Diabetes Maternal Uncle Cancer Maternal Grandmother Cancer Brother Mental health disorder Social History Household Members: Spouse Housing: Apartment Are you a primary transitional care manager to a significant other at home: No Do you presently have visiting nurse or other home services: Yes (phone visits) Alcohol intake: former Patient Tobacco Use Status: Never used Tobacco e-Cigarette/Vaping Use: Never Used Second Hand Smoke Exposure: No service: No Current occupational status: retired Cognitive needs: No Hearing needs: No Vision needs: No Female Reproductive History Menstrual Age of Menarche: 10 Questionnaire PHQ-9 Over the last 2 weeks, how often have you been bothered by any of the following problems? 1. Little interest or pleasure in doing things: several days 2. Feeling down, depressed, or hopeless: several days 3. Trouble falling or staying asleep, or sleeping too much: several days 4. Feeling tired or having little energy: several days 5. Poor appetite or overeating: several days 6. Feeling bad about yourself - or that you are a failure or have let yourself or your family down: several days 7. Trouble concentrating on things, such as reading the newspaper or watching television: several days 8. Moving or speaking so slowly that other people could have noticed. Or the opposite - being so fidgety or restless that you have been moving around a lot more than usual: several days 9. Thoughts that you would be better off or of hurting yourself in some way: not at all Total score: 8 Depression Screening Interpretation: Positive Depression Screening Follow-up: Existing condition, In treatment, Community Mental Health Worker F/U and Follow- up Visit Requested Depression Screening Done: Yes 50018 - PHQ-9 Billing: Yes Source: Developed by Drs. Mehran Win, Maddy Rapp, Toni Dorantes and colleagues, with an educational cody from [employer]. Thrive Questionnaire Date Thrive assessed: 04/08/25 I am a: Patient What is your living situation today?: I have a steady place to live Within the past 12 months, did the food you bought not last and you didn't have the money to get more?: Sometimes True Within the past 12 months, did you worry whether your food would run out before you got money to buy more?: Often true Do you have trouble paying for medicines?: No Do you have trouble getting transportation to medical appointments?: No Do you have trouble paying your heating and electricity bill?: No Do you have trouble taking care of your child, family member or friend?: No Do you have trouble with day-to-day activities such as bathing, preparing meals, shopping, managing finances, etc.?: No Are you currently unemployed and looking for a job?: No Are you interested in more education?: No Please select the resources that you would like help with: Housing/[facility] Currently or been in a relationship where the following occur: No concerns reported THRIVE Score: 2 AUDIT C Alcohol Use Questionnaire (AUDIT-C) 1. How often do you have a drink containing alcohol?: Never Total Score: 0 Score Reviewed/Action Taken: No JESSICA-7 AMB Questionnaire JESSICA-7 Date JESSICA - 7 assessed: 04/08/25 Feeling nervous, anxious, or on edge: 1 = Several days Not being able to stop or control worryin = Several days Worrying too much about different things: 1 = Several days Trouble relaxin = Several days Being so restless that it is hard to sit still: 1 = Several days Becoming easily annoyed or irritable: 1 = Several days Feeling afraid as if something awful might happen: 1 = Several days Total JESSICA-7 score (0-4 normal; 5-9 mild; 10-14 moderate; 15-21 severe): 7 Source: Developed by Drs. Mehran Win, Maddy Rapp, Toni Dorantes and colleagues, with an educational cody from [employer]. JESSICA-7 Assessment Billing JESSICA-7 Assessment Tool: JESSICA-7 Assessment 96351 Review of Systems Const All systems reviewed & are unremarkable except as noted in HPI and below Card Denies chest pain at rest, Denies chest pain with activity, Denies edema, Denies irregular heart rhythm, Denies claudication, Denies dyspnea, Denies dyspnea on exertion, Denies orthopnea, Denies paroxysmal nocturnal dyspnea and Denies slow heart rate Resp Denies cough, Denies dyspnea and Denies dyspnea on exertion GI Denies abdominal pain, Denies change in bowel habits, Denies excessive flatus, Denies nausea and Denies vomiting Denies urinary incontinence, Denies urinary hesitancy and Denies urinary urgency Musc Denies abnormal gait, Denies atrophy, Denies deformity and Denies limited range of motion Skin/Breast Denies bleeding lesions, Denies changing lesions and Denies rash Neuro Denies abnormal gait and Denies lack of coordination Physical exam (Primary Care) Vital Signs: Last Vital Signs BP 120/72 04/08/25 12:58 BMI result Body Mass Index 33.9 Tobacco/Smoking Status: Tobacco use Status Tobacco use date assessed 04/08/25 04/08/25 13:04 Patient Tobacco Use Status Never used Tobacco 04/08/25 12:43 e-Cigarette/Vaping Use Never Used 04/08/25 12:43 PHQ-9: PHQ-9 Score PHQ-9: Total score 8 04/08/25 13:51 Depression Screening Interpretation: Positive Depression Screening Follow-up: Existing condition, In treatment, Community Mental Health Worker F/U and Follow- up Visit Requested Thrive Assessment: Date of Thrive Assessment Date Thrive assessed 04/08/25 04/08/25 12:43 Currently or been in a relationship where the following occur: No concerns reported HENWI Head: Yes normal to inspection, Yes normocephalic and Yes atraumatic Ears: external ears normal Eyes General: appearance normal, both eyes and all related structures Eyelids: Yes eyelids normal Conjunctivae: conjunctivae normal Neck Neck: Yes normal visual inspection and Yes supple Resp Effort & Inspection: normal respiratory effort Auscultation: clear to auscultation bilaterally Cardio Jugular venous distension: no JVD Rate: regular rate Rhythm: regular rhythm Heart sounds: S1 normal heart sound present and S2 normal heart sound present GI Inspection: Yes normal to inspection Palpation (GI): Soft to palpation and nontender Auscultation: normal bowel sounds Skin General skin exam: no rashes or lesions noted Neuro General: no focal motor deficits Extrem General: Yes full ROM Psych Appearance: grossly normal Immunizations Boostrix Tdap 2.5 Lf unit-8 mcg-5 Lf/0.5 mL intramuscular syringe Performing Provider: Iqra Lawrence MD [facility] Administered by: FLORIDA Caballero on 04/08/25 13:51 Dose Route Admin Location Dispensed Lot Number Expiration Date NDC Security And Privacy Consultant 0.5 mL IM Left Deltoid 0.5 mL [id number] 11/07/26 38904-135-88 [employer] Total Dispensed Waste 0.5 mL 0 % VIS Given Date VIS Provided VIS Publication Date 04/08/25 Single Vaccine 24 Eligibility Eligibility Date Funding Source Not [facility] Eligible 04/08/25 Private Coding Level of Care Code Est Pt Prev Care 40-64y(78346) Diagnoses Physical exam Z00.00 Mucopurulent chronic bronchitis J41.1 Mild major depression F32.0 Additional Codes JESSICA-7 Assessment Billing - JESSICA-7 Assessment Tool: JESSICA-7 Assessment 15514 ([id number]) PHQ-9 - 28142 - PHQ-9 Billing: Yes ([id number]) Time Spent (min) 32 Assessment & Plan Assessment & Plan (1) Physical exam: Code(s): Z00.00 - Encounter for general adult medical examination without abnormal findings Category: Medical (2) Mucopurulent chronic bronchitis: Code(s): J41.1 - Mucopurulent chronic bronchitis Category: Medical (3) Mild major depression: Comment: Follows with psychiatry Code(s): F32.0 - Major depressive disorder, single episode, mild Category: Medical Plan The patient will continue with her current osteoporosis management plan, including Prolia injections under the supervision of her car racer. For COPD, she will maintain her use of Symbicort and monitor for any exacerbations. Regarding depression, the patient will not resume fluoxetine due to previous side effects, and alternative management strategies will be considered if necessary. Her hypertension will continue to be managed with lisinopril and chlorthalidone, with regular monitoring of blood pressure. The patient will undergo laboratory tests to check cholesterol levels and repeat liver enzyme tests to monitor her fatty liver condition. Preventative care measures will include updating her tetanus vaccination and ensuring she receives her influenza vaccine. Patient was informed and verbally consented to the use of an ambient scribe for clinic note documentation during this visit. Orders: Orders MM tomosynthesis screening BI 04/08/25 Z12.31 - Encounter for screening mammogram for malignant neoplasm of breast TDaP Immunization 04/08/25 Z23 - Encounter for immunization
--- OUTSIDE RECORDS SUMMARY | 2025-04-08 12:57 | XMS_ITS | Encounter Summary ---
Author Organization [employer] Address [address] [facility] [address] [place] [address] Care Team Providers Care Lamination Inspector Name Role Phone Iqra Nelson MD Primary Care Provider + Johnny Casanova PharmD Unavailable [phone] Toñito Caraballo Unavailable Unavailable Reason for Visit * Reason Onset Date Comments Med Refill Appointment 10/11/2023 LVM-Re: her apt for today as [id number] @2pm Encounter Details Date Type Department Care Team (Late st Contact Info) Description 10/11/2023 Refill [facility] [address] [place] [address] Toñito Caraballo FNP Social History Tobacco Use [...] documented as of this encounter Care Teams Lamination Inspector Relationship Specialty Start Date End Date Iqra Nelson MD [address] [place] [id number] PCP - General Family Medicine 12/05/16 04/08/24 Johnny Casanova PharmD [address] [place] [phone] Pharmacist Internal Medicine 09/26/22 Toñito Caraballo FNP [address] [place] [phone] Nurse Practitioner Family Medicine 08/08/23 documented as of this encounter
--- OUTSIDE RECORDS SUMMARY | 2025-04-08 12:57 | XMS_ITS | Data Portability ---
Author Organization [place] [facility], [facility] Address [address] [address] Assessment Encounter Date Assessment Date Assessment LastModified by Organization Details LastModified Time 04/21/2024 04/21/2024 63-year-old female with a history of allergic rhinitis presents today for evaluation of her ears, with recurrent infections, tinnitus, and decreased hearing. There is no evidence of infection today. We reviewed aural hygiene. I recommended trying DermOtic oil as needed for the pruritus. I did clinical counselor her that a nasal steroid such [...] nasal spray,viet pension 2023 024 [id number], [address] [place], [address], 4 15:52:39 DermOtic Oil 0.01 % ear drops 2023 024 [id number], [address] [place], [address], 4 12:15:29 Patient TargetsNo targets recorded. Patient InstructionsNo [...] Time Sensorineural hearing loss of bilateral ears [id number] Active 2023 [place]ER [place] [address] [place] [address], [place], [phone], [facility] - [facility] 4 13:52:52 Allergic rhinitis 07073381 Active 2023 ESTELA MONROE MD [address] [place] [address], [place], [phone], [facility] - [facility] 4 15:50:03 Pruritic disorder 117277827 Active 2023 ESTELA MONROE MD [address] [place] [address], [phone], [facility] - [facility] 4 15:50:09 Pruritic disorder of skin Active 2023 ESTELA MONROE MD [address] [place] [address], [place], [phone], [facility] - [facility] 4 15:52:00 Problem Notes None recorded. Procedures Surgical History Date Name Laterality Status Provider Name and Address Organization Details Recorded Time 04/21/20 24 Comp Audio with Tymps - 08689 & 78158 completed GREER [place] [address] [facility],[address], [phone], [facility] 04/21/2024 13:52:45 tonsillectomy completed ESTELA MONROE MD [address] [place] [address],[address], [phone], [place] - [facility] 04/28/2024 07:58:20 section completed ESTELA MONROE MD [address] [place] [address], [phone], [facility] 04/28/2024 07:58:28 Imaging Results None recorded. Procedure Notes None recorded. Medical Equipment None Reported. Allergies Allergen ID Allergen Name Allergen Category Reaction Reaction Severity Criticality Documentation Date Start Date Code Code System Note Provider Name and Address Organization Details Recorded Time 318447 aspirin medicatio n Not available Not available Not available 04/21/2024 1191 RxNorm [address] [facility] 4 13:44:51 038201 amoxicill in medicatio n Not available Not available Not available 04/21/2024 723 RxNorm [address] [facility] 4 13:45:02 650937 cultivate d mushroom extract food,medi cation Not available Not available Not available 04/21/2024 89761 17 RxNorm Sabi Potvin grecia, [facility] 4 13:45:09 Medications Name Sig Start [...] Updated DateTime 04/21/2024 149.86 cm 32.1 kg/m2 53056.19 g Sabi Grijalva [place] - [facility] 04/21/2024 15:22:56 Social History None recorded. [...] SNOMED-CT Code Diagnosis ICD10 Code Diagnosis Note [id number] ESTELA MONROE MD [facility] [address] [address] 04/21/2024 13:35:47 04/21/2024 15:54:22 Sensorineural hearing loss of bilateral ears [id number] H90.3 Audiologic al evaluation results: Right ear: Normal sloping to moderate sensorineu ral hearing loss with excellent word recognitio n. Left ear: Normal sloping to moderate sensorineu ral hearing loss with excellent word recognitio n. Tympanomet ry: Right Ear:Type A Left Ear:Type A Allergic rhinitis 358958 04 J30.9 Pruritic disorder 714752 002 L29.9 Health Concerns Section Related Observation LastModified by Organization Detai ls LastModified Time None Recorded Concern Status LastModified by Organization Details LastModified Time None Recorded Advance Directives Directive None Recorded Payers Insurance Date Sequence Insurance Name Policy Number Policy Barrow Covered Member ID Barrow Member ID Guarantor Name 04/21/2024 1 [facility] - DOS ON OR AFTER 2022 - ALF OPTIONS AND ONE CARE (MEDICARE REPLACEMENT/AD VANTAGE - PPO) Yoselin Rodríguez [id number] Yoselin Rodríguez Notes Date Note Type Note Provider Name and Address Organization Details Recorded Time 04/21/2024 text/html 63-year-old fema satnam with a history of allergies on dupixent, no recommendation for allergy shots, no nasal sprays, presents with recurrent ear infections. She was treated last year 3 times. She has had more trouble hearing on the left side and has had pruritus as well. Most recent infection was several months ago. ESTELA MONROE MD [address] [place] [address], [phone], [facility] - [facility] 04/28/2024 08:02:56 OBGyn Episode No OBEpisode recorded.
--- OUTSIDE RECORDS SUMMARY | 2025-04-08 12:57 | XMS_ITS | Clinical Summary ---
Author Organization [facility] Address [address] [place] [phone] Phone Care Team Providers Care Stewardess Supervisor Name Role Phone Iqra Nelson MD Primary Care Provider + Allergies Active Allergy Reactions Criticality Noted Date Comments Aspirin Hives,Shortness Of Breath High 10/19/2020 Shellfish Containing Products Shortness Of Breath High 10/19/2020 Medications lisinopril (PRINIVIL,ZESTR IL) 10 MG tablet Take 10 mg by mouth daily. Active ipratropium-alb uteroL (DUONEB) 0.5-3 mg (2.5 mg base)/3 mL nebulizer solution every 4 (four) hours. Active dicyclomine (BENTYL) 10 MG capsule Take 10 mg by mouth 4 (four) times a day before meals and nightly. Active omeprazole (PRILOSEC) 10 MG capsule Take 10 mg by mouth daily. Active acetaminophen (TYLENOL) 325 mg tablet Take 650 mg by mouth every 6 (six) hours as needed for mild pain. Active predniSONE (DELTASONE) 20 MG tablet Take 2 tablets (40 mg total) by mouth daily with breakfast. 10 tablet 10/19/2020 Active Social History Tobacco Use Types Packs/Day Years Used Date Smoking Tobacco: Never Smokeless Tobacco: Never Alcohol Use Standard Drinks/Week Comments Not Currently 0 (1 standard drink = 0.6 oz pur e alcohol) Education Answer Date Recorded Are you interested in more education? Not on kasi e 01/12/2023 Are you concerned about learning? Not on file 01/12/2023 No 01/12/2023 No 01/12/2023 Digital Access Answer Date Recorded No 02/13/2023 No 02/13/2023 Reliable internet access at home? Not on file 02/13/2023 Device with a working camera? Not on file Comments No Sex and Gender Information Value Date Recorded Sex Assigned at Not on file Legal Sex Female 11:20 AM EST Gender Identity Not on file Sexual Orientation Not on file Last Filed Vital Signs Vital Sign Reading Time Taken Comments Blood Pressure 169/72 10/26/2020 8:00 PM EST Pulse 78 10/26/2020 6:49 PM EST Temperature 36.9 C (98.4 F) 10/26/2020 6:49 PM EST Respiratory Rate 18 10/26/2020 6:49 PM EST Oxygen Saturation 98% 10/26/2020 8:00 PM EST Inhaled Oxygen Concentration - - Weight 72.6 kg (160 lb) 10/26/2020 6:49 PM EST Height 152.4 cm (5') 10/26/2020 6:49 PM EST Body Mass Index 31.25 10/26/2020 6:49 PM EST Plan of Treatment Not on file Medical Devices Not on file Insurance [facility] MEDICARE PART A & B [place] & [facility] [place] & B Care Teams Stewardess Supervisor Relationship Specialty Start Date End Date Iqra Nelson MD [address] [place] [address] [address] [place] [address] PCP - General Internal Medicine 10/19/20 Additional Source Comments The information contained in this document represents components of the legal health record. It is not the complete legal health record.[facility]
[2025-04-08 12:58] VITALS: BP 120/72; BMI 33.9
== END 2025-04-08 13:47 | disposition home or self-care (01) ==
LOC: HO.HMCH 12:32
PROVIDERS: PCP Internal Medicine; Visit Provider Internal Medicine
DX: Z00.00 Encounter for general adult medical examination without abnormal findings (principal); J41.1 Mucopurulent chronic bronchitis; F32.0 Major depressive disorder, single episode, mild

== ENCOUNTER → 2025-04-08 12:32 | Outpatient (BNVA) | payer OTHER, SELFPAY | PROVIDERS: PCP Internal Medicine; Visit Provider Internal Medicine | DX: Z00.00 Encounter for general adult medical examination without abnormal findings (principal); M81.0 Age-related osteoporosis without current pathological fracture; F32.A Depression, unspecified; I10 Essential (primary) hypertension; J41.1 Mucopurulent chronic bronchitis; F32.0 Major depressive disorder, single episode, mild; Z23 Encounter for immunization | CPT/HCPCS: 90471; 90715; 96127; 99396 ==

== ENCOUNTER 2025-04-14 13:02 | Outpatient (REF) | payer OTHER, SELFPAY ==
[2025-04-14 15:40] LABS: Gamma Glutamyl Transpeptidase 87 U/L (7-33)
[2025-04-14 15:50] LABS: Ferritin 106 ng/mL (10-250)
== END 2025-04-14 13:03 | disposition home or self-care (01) ==
LOC: HO.LAB 13:02
PROVIDERS: PCP Internal Medicine; Visit Provider Nurse Practitioner
DX: R74.01 Elevation of levels of liver transaminase levels (principal); R14.0 Abdominal distension (gaseous); R10.33 Periumbilical pain; K21.9 Gastro-esophageal reflux disease without esophagitis; K58.2 Mixed irritable bowel syndrome
CPT/HCPCS: 36415; 81596; 82105; 82728; 82977; 86015; 86381; 99212

== ENCOUNTER 2025-04-14 13:02 | Outpatient (AMB) | payer OTHER, SELFPAY ==
[2025-04-14 13:06] VITALS: BP 146/64; PULSE 57; BMI 34.4
--- NOTE | 2025-04-14 13:06 | MHC.OFFVIS ---
Vital Signs 04/14/25 13:06 Height 4 ft 10 in Weight 164 lb 7.437 oz BMI 34.4 BP 146/64 H Blood Pressure Location Lt brachial Position Sitting Pulse 57 Intake Visit Reasons: eval creon, transaminitis Intake Note: Ada returns to office in follow up of transaminitis and to evaluate Creon. CC: Patient states that she feels the same. Per patient she has been with Gatorade all day today because she is afraid to eat d/t abdominal pain and diarrhea. Patient reports that she has not noticed any improvement with the Creon. She is requesting Zofran for nausea. Supervisor Shuttle Fitting Required: No Accompanied by: Self / Same As Patient Allergies cephalexin Allergy (Severe, Verified 04/14/25 13:07) Rash seafood Allergy (Severe, Verified 04/14/25 13:07) Anaphylaxis vancomycin (VANCOMYCIN) Allergy (Severe, Verified 04/14/25 13:07) ANAPHYLAXIS, hives aspirin (ASPIRIN) Allergy (Intermediate, Verified 04/14/25 13:07) rash, asthma codeine (CODEINE) Allergy (Mild, Verified 04/14/25 13:07) rash egg (EGGS) Allergy (Mild, Verified 04/14/25 13:07) VOMITING peanut (PEANUTS) Allergy (Mild, Verified 04/14/25 13:07) HIVES,DIARRHEA amoxicillin (From Augmentin) Allergy (Verified 04/14/25 13:07) hives, swelling, difficulty breathing clavulanic acid (From Augmentin) Allergy (Verified 04/14/25 13:07) hives, swelling mushroom Allergy (Verified 04/14/25 13:07) Rash lactose Adverse Reaction (Intermediate, Verified 04/14/25 13:07) diarrhea cepha mixlexin Allergy (Intermediate, Uncoded 04/08/25 13:29) racing heart, rash HPI HPI eval creon, transaminitis: Details: Assessment & Plan (1) Periumbilical abdominal pain: Code(s): R10.33 - Periumbilical pain Category: Medical (2) Abdominal bloating: Code(s): R14.0 - Abdominal distension (gaseous) Category: Medical (3) GERD (gastroesophageal reflux disease): Code(s): K21.9 - Gastro-esophageal reflux disease without esophagitis Category: Medical Qualifiers: Esophagitis presence: esophagitis presence not specified Qualified Code(s): K21.9 - Gastro-esophageal reflux disease without esophagitis (4) Irritable bowel syndrome with both constipation and diarrhea: Comment: now more bile salt diarrhea since she is status post cholecystectomy Code(s): K58.2 - Mixed irritable bowel syndrome Category: Medical (5) Transaminitis: Comment: BASELINE LABS 12/30/24 13:04 Estimated GFR > 60 Total Bilirubin 0.6 AST 36 H ALT 35 H Alkaline Phosphatase 112 C-Reactive Protein 1.08 H CURRENT LABS US OF ABDOMEN 07/09/24 IMPRESSION: Unremarkable ultrasound. No ultrasound evidence of the hernia. *Ultrasound has limited sensitivity detecting some of the solid soft tissue lesions; if signs and/or symptoms persist, cross-sectional imaging, preferably MRI with IV contrast, recommended. Laboratory Tests Code(s): R74.01 - Elevation of levels of liver transaminase levels Category: Medical Plan The US was un-concerning re: sharp/sudden periumbilical pain like an electric shock. This is precipitated with bending and lifting or climbing stairs. She will have to lay very still and it will resolve after an hour. She has bentyl but it does not help much with this pain. It DOES help with cramping but not the shock pain. She DOES have right scoliosis and may need to seek MRI since shock type pain is generally neuropathic and may be radicular in nature. She continues to have severe bloating, simethicone made it worse. Will try creon and consider ? SIBO. She has a new problem of elevated transaminases - she was called by her rheum and told you have to stop drinking, and since she has never drank she was offended. She has FHX of PRESTON and I explain this. Will get additional tests to confirm dx, but she is mildly overweight. She had severe nausea and GERD after a Prolia injection, and these ARE documented s/e. ROV 3 mos. Orders: Orders Ferritin Today R14.0 - Abdominal distension (gaseous), R74.01 - Elevation of levels of liver transaminase levels Gamma Glutamyl Transpeptidase Today R14.0 - Abdominal distension (gaseous), R74.01 - Elevation of levels of liver transaminase levels Mitochondrial Antibody Today R14.0 - Abdominal distension (gaseous), R74.01 - Elevation of levels of liver transaminase levels Smooth Muscle Antibody Today R14.0 - Abdominal distension (gaseous), R74.01 - Elevation of levels of liver transaminase levels Alpha Fetoprotein Today R14.0 - Abdominal distension (gaseous), R74.01 - Elevation of levels of liver transaminase levels Liver Fibrosis Pnl Today R14.0 - Abdominal distension (gaseous), R74.01 - Elevation of levels of liver transaminase levels US abdomen complete Today R14.0 - Abdominal distension (gaseous), R74.01 - Elevation of levels of liver transaminase levels Medications: New lyztxd-yfzzoofr-banpgqn 24,000-76,000 -120,000 unit (Creon) 2 caps PO BID 120 caps 6RF 30 days K58.9 - Irritable bowel syndrome, unspecified Refilled omeprazole 40 mg PO BID 180 caps 1RF K21.9 - Gastro-esophageal reflux disease without esophagitis dicyclomine 20 mg PO QID 360 tabs 2RF K58.2 - Mixed irritable bowel syndrome, R10.9 - Unspecified abdominal pain LABS: NOT OBTAINED ULTRASOUND OF THE ABDOMEN 03/05/2025 Findings: The visualized pancreas, aorta, and inferior vena cava are unremarkable. Liver normal size and mildly echogenic. Right lobe 12.1 cm length. No focal hepatic masses. Common duct 3.0 mm diameter. Post cholecystectomy. No sonographic Machuca sign. Main portal vein antegrade. Right kidney normal size, 9.3 cm in length. Normal cortical width and echotexture. No solid or cystic renal masses. No nephrolithiasis. No hydronephrosis. Left kidney normal, 9.0 cm in length. Normal cortical width and echotexture. No solid or cystic renal masses. No nephrolithiasis. No hydronephrosis. Spleen measures 11.2 cm. No splenic masses. No ascites. No lymphadenopathy. Impression: 1. Post cholecystectomy. 2. Mildly echogenic liver reflecting mild diffuse hepatic steatosis or diffuse hepatocellular disease. No focal hepatic lesions. TODAY'S VISIT HER BLOATING HAS NOT CHANGED WITH THE CREON. She is currently on omeprazole, dicyclomine, and the Creon. Simethicone made her bloating feel worse. She is not eating much because she will have severe bloating then burping and cramping so she does not eat when she has to go out and about. I remind her to get the labs for her transaminitis. She is frustrated because she says her primary care told her that her liver is fatty because she eats too many fatty foods, but she does not need any as she can not tolerate them. I explained to her that fatty liver is not caused by the intake of fatty foods but rather by inheritance and being overweight. Being overweight is more of a caloric intake problem then it is tied to types of foods eaten. Stop creon, start flagyl (she does not drink ETOH), and probiotic. ROV 6 weeks. [facility] Medical History Physical exam Urinary pain Rotator cuff tendonitis Chest pain Diarrhea Dyspnea on exertion History of pulmonary embolism Encounter for screening examination for sexually transmitted disease Women's annual routine gynecological examination Abdominal bloating Acute diarrhea COVID-19 Pulmonary embolism Pulmonary embolism Vaginal itching Hx of human papillomavirus infection Candidiasis of mouth and esophagus Abdominal cramping Pneumonia Bile salt-induced diarrhea History of pilonidal cyst Gastritis IBS (irritable bowel syndrome) Hypertension Pre-eclampsia Irritable bowel syndrome with both constipation and diarrhea Gallstones Surgical History H/O cervical polypectomy Hx of esophagogastroduodenoscopy H/O colonoscopy History of surgical removal of pilonidal cyst S/P tonsillectomy History of section History of cholecystectomy Family History Father Heart attack GERD (gastroesophageal reflux disease) Peptic ulcer disease Mother CHF (congestive heart failure) Afib Diverticulitis History of bowel resection Hypothyroid COVID-19 Maternal Aunt Diabetes Maternal Uncle Cancer Maternal Grandmother Cancer Brother Mental health disorder Social History Household Members: Spouse Housing: Apartment Are you a primary family member caretaker to a significant other at home: No Do you presently have visiting nurse or other home services: Yes (phone visits) Alcohol intake: former Patient Tobacco Use Status: Never used Tobacco e-Cigarette/Vaping Use: Never Used Second Hand Smoke Exposure: No service: No Current occupational status: retired Cognitive needs: No Hearing needs: No Vision needs: No Female Reproductive History Menstrual Age of Menarche: 10 Review of Systems Const Denies fatigue, Denies fever(s), Denies night sweats, Denies poor appetite and Denies weight loss ENT Reports Normal hearing present, Denies dental pain, Denies dysphagia, Denies hearing loss, Denies mouth pain, Denies odynophagia, Denies throat swelling, Denies tongue swelling and Reports other (Dentition adequate) Card Reports no additional complaints Resp Reports no additional complaints GI Details: Denies abdominal pain, Denies melena, Reports bloating, Denies hematochezia, Reports constipation, Reports GI cramping, Denies dysphagia, Denies excessive flatus, Denies early satiety, Reports heartburn, Denies diarrhea, Reports loose stools, Denies nausea, Denies odynophagia, Denies vomiting and Denies hematemesis Skin/Breast Denies pruritus, Denies lesions, Denies rash and Denies jaundice Neuro Reports Normal hearing present and Denies Abnormal speech present Endo Denies fatigue Aller/Immun Denies throat swelling and Denies tongue swelling Physical Exam Vital Signs: Last Vital Signs Pulse 57 04/14/25 13:06 BP 146/64 H 04/14/25 13:06 BMI result Body Mass Index 34.4 Const General: cooperative, no acute distress, well developed and well groomed Nutritional Appearance: well nourished and obese Orientation/consciousness: oriented to person, oriented to place and oriented to time Limitations: No language barrier HEENT Head: Yes normocephalic and Yes atraumatic Eyes General: appearance normal, both eyes and all related structures Pupils: Equal, round and reactive pupils present Neck Neck: Yes normal visual inspection and Yes no lymphadenopathy Thyroid: Thyroid normal Resp Effort & Inspection: normal respiratory effort and able to speak in complete sentences Auscultation: clear to auscultation bilaterally Cardio Rate: regular rate Rhythm: regular rhythm Heart sounds: Normal, physiologic split S2 sound present Peripheral pulses: radial pulses present and posterior tibial pulses present GI Inspection: No distended, No Abdominal panniculus present and Yes obesity Palpation (GI): Soft to palpation, nontender, no guarding, not rigid and No hepatosplenomegaly present Percussion: Yes normal to percussion Auscultation: normal bowel sounds Rectal Exam - Female: deferred Skin General skin exam: no rashes or lesions noted, turgor normal, skin not dry, no jaundice, No spider nevi and no striae Rashes: no rashes Nails: normal Neuro General: oriented to person, oriented to place and oriented to time Cranial nerves: Yes Equal, round and reactive pupils present and Yes Normal hearing present Speech: No Abnormal speech present Extrem General: Yes normal to inspection, No clubbing, No cyanosis and No edema Psych Appearance: grossly normal and well kempt Mental Status: mental status grossly normal Speech and movement: Normal speech and movement present Affect: normal affect Attitude: cooperative Thought process: Normal thought process present and not confabulating Thought content: Normal thought content present Insight: Fair insight present (Psych) Judgement: Fair judgement present (Psych) Assessment & Plan Assessment & Plan (1) Abdominal bloating: Code(s): R14.0 - Abdominal distension (gaseous) Category: Medical (2) GERD (gastroesophageal reflux disease): Code(s): K21.9 - Gastro-esophageal reflux disease without esophagitis Category: Medical Qualifiers: Esophagitis presence: esophagitis presence not specified Qualified Code(s): K21.9 - Gastro-esophageal reflux disease without esophagitis (3) Transaminitis: Comment: BASELINE LABS 12/30/24 13:04 Estimated GFR > 60 Total Bilirubin 0.6 AST 36 H ALT 35 H Alkaline Phosphatase 112 C-Reactive Protein 1.08 H CURRENT LABS US OF ABDOMEN 07/09/24 IMPRESSION: Unremarkable ultrasound. No ultrasound evidence of the hernia. *Ultrasound has limited sensitivity detecting some of the solid soft tissue lesions; if signs and/or symptoms persist, cross-sectional imaging, preferably MRI with IV contrast, recommended. Laboratory Tests Code(s): R74.01 - Elevation of levels of liver transaminase levels Category: Medical (4) Irritable bowel syndrome with both constipation and diarrhea: Comment: now more bile salt diarrhea since she is status post cholecystectomy Code(s): K58.2 - Mixed irritable bowel syndrome Category: Medical (5) Periumbilical abdominal pain: Code(s): R10.33 - Periumbilical pain Category: Medical Plan HER BLOATING HAS NOT CHANGED WITH THE CREON. She is currently on omeprazole, dicyclomine, and the Creon. Simethicone made her bloating feel worse. She is not eating much because she will have severe bloating then burping and cramping so she does not eat when she has to go out and about. I remind her to get the labs for her transaminitis. She is frustrated because she says her primary care told her that her liver is fatty because she eats too many fatty foods, but she does not need any as she can not tolerate them. I explained to her that fatty liver is not caused by the intake of fatty foods but rather by inheritance and being overweight. Being overweight is more of a caloric intake problem then it is tied to types of foods eaten. Stop creon, start flagyl (she does not drink ETOH), and probiotic. Her stools continue to go back and forth between constipation and diarrhea. At times she will see yellow when the stools are looser which is likely bile. ROV 6 weeks. Medications: New metronidazole 500 mg PO TID 30 tabs 0RF 10 days On Hold okoicc-wevwdzqb-nuuacit 24,000-76,000 -120,000 unit (Creon) Hold Comment: Doctor's Order 2 caps PO BID 30 days 120 caps 6RF K58.9 - Irritable bowel syndrome, unspecified Coding Level of Care Code Est Pt Level 3 (19426) Diagnoses Abdominal bloating R14.0 Gastroesophageal reflux disease, unspecified whether esophagitis present K21.9 Esophagitis presence: esophagitis presence not specified Transaminitis R74.01 Irritable bowel syndrome with both constipation and diarrhea K58.2 Periumbilical abdominal pain R10.33
--- OUTSIDE RECORDS SUMMARY | 2025-04-14 13:49 | XMS_ITS | Data Portability ---
Author Organization [place] - [facility], Allergy Address [address] [address] Assessment Encounter Date Assessment Date Assessment LastModified by Organization Details LastModified Time 04/21/2024 04/21/2024 63-year-old female with a history of allergic rhinitis presents today for evaluation of her ears, with recurrent infections, tinnitus, and decreased hearing. There is no evidence of infection today. We reviewed aural hygiene. I recommended trying DermOtic oil as needed for the pruritus. I did financial aid counselor her that a nasal steroid such [...] nasal spray,viet pension 2023 024 [id number], [address] [place], [address], 4 15:52:39 DermOtic Oil 0.01 % ear drops 2023 024 [id number], [address] [place], [address], 4 12:15:29 Patient TargetsNo targets recorded. Patient [...] Time Sensorineural hearing loss of bilateral ears [id number] Active 2023 [place]ER [place] [address] [place] [address], [place], [phone], [facility] - [facility] 4 13:52:52 Allergic rhinitis 47388367 Active 2023 ESTELA MONROE MD [address] [place] [address], [place], [phone], [facility] - [facility] 4 15:50:03 Pruritic disorder 617064051 Active 2023 ESTELA MONROE MD [address] [place] [address], [phone], [facility] - [facility] 4 15:50:09 Pruritic disorder of skin Active 2023 ESTELA MONROE MD [address] [place] [address], [place], [address], [facility] - [facility] 4 15:52:00 Problem Notes None recorded. Procedures Surgical History Date Name Laterality Status Provider Name and Address Organization Details Recorded Time 04/21/20 24 Comp Audio with Tymps - 85858 & 86070 completed [facility]ER [place] [address] [facility],[address], [address], [facility] 04/21/2024 13:52:45 tonsillectomy completed ESTELA MONROE MD [address] [place] [address],[address], [address], [place] - [facility] 04/28/2024 07:58:20 section completed ESTELA MONROE MD [address] [place] [address], [phone], [facility] 04/28/2024 07:58:28 Imaging Results None recorded. Procedure Notes None recorded. Medical Equipment None Reported. Allergies Allergen ID Allergen Name Allergen Category Reaction Reaction Severity Criticality Documentation Date Start Date Code Code System Note Provider Name and Address Organization Details Recorded Time 995419 aspirin medicatio n Not available Not available Not available 04/21/2024 1191 RxNorm Sabi Potevangelista paige [facility] 4 13:44:51 811523 amoxicill in medicatio n Not available Not available Not available 04/21/2024 723 RxNorm Sabi Potevangelista paige [facility] 4 13:45:02 296302 cultivate d mushroom extract food,medi cation Not available Not available Not available 04/21/2024 56345 17 RxNorm Sabi Potvin grecia, [facility] 4 13:45:09 Medications Name Sig Start [...] Updated DateTime 04/21/2024 149.86 cm 32.1 kg/m2 09118.19 g Sabi Grijalva [place] - [facility] 04/21/2024 15:22:56 Social History None recorded. [...] SNOMED-CT Code Diagnosis ICD10 Code Diagnosis Note [id number] ESTELA MONROE MD [facility] [address] [address] 04/21/2024 13:35:47 04/21/2024 15:54:22 Sensorineural hearing loss of bilateral ears [id number] H90.3 Audiologic al evaluation results: Right ear: Normal sloping to moderate sensorineu ral hearing loss with excellent word recognitio n. Left ear: Normal sloping to moderate sensorineu ral hearing loss with excellent word recognitio n. Tympanomet ry: Right Ear:Type A Left Ear:Type A Allergic rhinitis 702775 04 J30.9 Pruritic disorder 776603 002 L29.9 Health Concerns Section Related Observation LastModified by Organization Detai ls LastModified Time None Recorded Concern Status LastModified by Organization Details LastModified Time None Recorded Advance Directives Directive None Recorded Payers Insurance Date Sequence Insurance Name Policy Number Policy Barrow Covered Member ID Barrow Member ID Guarantor Name 04/21/2024 1 [facility] - DOS ON OR AFTER 2022 - [employer] OPTIONS AND ONE CARE (MEDICARE REPLACEMENT/AD VANTAGE - PPO) Yoselin Rodríguez [id number] Yoselin Rodríguez OBGyn Episode No OBEpisode recorded.
--- OUTSIDE RECORDS SUMMARY | 2025-04-14 13:49 | XMS_ITS | Encounter Summary ---
Author Organization [employer] Address [address] [facility] [address] [place] [address] Care Team Providers Care Tempering Oven Operator Name Role Phone Iqra Nelson MD Primary Care Provider + Johnny Casanova PharmD Unavailable [phone] Toñito Caraballo Unavailable Unavailable Reason for Visit * Reason Onset Date Comments Med Refill Appointment 10/11/2023 LVM-Re: her apt for today as [id number] @2pm Encounter Details Date Type Department Care Team (Late st Contact Info) Description 10/11/2023 Refill [facility] [address] [place] [address] Toñito Caraballo FNP Social History Tobacco Use [...] documented as of this encounter Care Teams Tempering Oven Operator Relationship Specialty Start Date End Date Iqra Nelson MD [address] [place] [phone] PCP - General Family Medicine 12/05/16 04/08/24 Johnny Casanova PharmD [address] [place] [phone] Pharmacist Internal Medicine 09/26/22 Toñito Caraballo FNP [address] [place] [phone] Nurse Practitioner Family Medicine 08/08/23 documented as of this encounter
--- OUTSIDE RECORDS SUMMARY | 2025-04-14 13:50 | XMS_ITS | Clinical Summary ---
Author Organization [facility] Address [address] [place] [phone] Phone Care Team Providers Care Life Assurance Representative Name Role Phone Iqra Nelson MD [...] file Medical Devices Not on file Insurance [facility] MED[facility] PART A & B [place] & [place] & [place] & [place] A & B [facility] PART A & [place] & [place] & B Care Teams Life Assurance Representative Relationship Specialty Start Date End Date Iqra Nelson MD [address] [place] [address] [address] [place] [address] PCP - General Internal Medicine 10/19/20 Additional Source Comments The information contained in this document represents components of the legal health record. It is not the complete legal health record.[facility]
== END 2025-04-14 13:49 | disposition home or self-care (01) ==
LOC: HO.HGI 13:03
PROVIDERS: PCP Internal Medicine; Visit Provider Nurse Practitioner
DX: R14.0 Abdominal distension (gaseous) (principal); K21.9 Gastro-esophageal reflux disease without esophagitis; R74.01 Elevation of levels of liver transaminase levels; K58.2 Mixed irritable bowel syndrome; R10.33 Periumbilical pain
CPT/HCPCS: 99213

== ENCOUNTER 2025-04-22 10:20 | Emergency (ER) | payer OTHER, SELFPAY ==
--- NOTE | ~2025-04-22 | XR_ITS ---
EXAMINATION: XR FOOT 3 OR MORE VIEWS RIGHT HISTORY: pain with walking blunt trauma COMPARISON: Comparison is made with the prior examination dated 01/29/2017. FINDINGS: Three views of the right foot are submitted. Osseous mineralization is normal. There is no fracture or dislocation. The joint spaces are preserved. There is a plantar calcaneal spur. The soft tissues are unremarkable. XR/XR foot RT min 3V IMPRESSION: No evidence of fracture of the right foot. Electronically signed by: Mehran Evans MD 04/22/2025 10:43 AM EDT
[2025-04-22 10:24] VITALS: BP 122/63; PULSE 67; RESP 18; TEMP 36.6; O2SAT 98; BMI 32.7
--- NOTE | 2025-04-22 10:25 | ED_ITS ---
HPI - Extremity Injury (Lower) General Chief Complaint: Extremity Injury, Lower Stated Complaint: R foot pain/ injury Time Seen by Provider: 04/22/25 10:24 Source: patient and old records reviewed Mode of arrival: ambulatory Limitations: no limitations History of Present Illness ED Provider: CANDY MAGUIRE Narrative: 64 yo female with PMH of YESSICA, chronic bronchitis, depression, HTN, migraines, COPD, IBS here with c/o shopping cart ran over her R foot injuring it on Sunday at [employer]. Her pain has not gotten better and continues to hurt. She has pain walking. No prior injuries to that foot. Has been walking in her shoes with the pain MD complaint: foot injury Onset (ago): day(s) (Sunday) Injury: Right: foot Type of Injury: blunt Place: other Severity: severe Relieving factors: nothing Exacerbating factors: weight bearing, movement and palpation Context: direct blow Associated symptoms: swelling Other symptoms: none Related Data Home Medications ?Medication ?Instructions ?Recorded ?Confirmed hydroxyzine HCl 10 mg tablet 10 - 20 mg PO Q6H PRN anx iety 12/15/22 04/08/25 sumatriptan succinate 50 mg tablet 50 mg PO DAILY PRN headaches 12/15/22 04/08/25 lorazepam 1 mg tablet 1 mg PO DAILY PRN 05/31/23 0 04/08/25 calcium carbonate 600 mg PO BID 10/25/2304/08 melatonin 3 mg tablet 3 mg PO BEDTIME 04/01/24 trazodone 100 mg tablet 50 mg PO DAILY 04/08/2503/18 Previous Rx's ?Medication ?Instructions ?Recorded lisinopril 40 mg tablet 40 mg PO DAILY 90 days #90 t abs 12/22/24 Symbicort 160 mcg-4.5 2 puff PO BID #10.2 grams mcg/actuation HFA aerosol inhaler (budesonide-formoterol) albuterol sulfate 2.5 mg/3 mL 2.5 mg (3 mL) inhalation TID PRN 12/23/24 (0.083 %) solution for nebulization asthma #180 mL albuterol sulfate 90 mcg/actuation 90 mcg inhalation D AILY #1 ea 12/23/24 aerosol inhaler cyclobenzaprine 5 mg tablet 5 mg PO BEDTIME #14 tabs 0 12/30/24 dicyclomine 20 mg tablet 20 mg PO QID #360 tabs 01/13 [id number] 2 cap PO BID 30 days #120 ca ps 01/13/25 24,000-76,000-120,000 unit capsule,delayed rel (Creon) Held on 04/14/25. Instructions: Doctor's Order omeprazole 40 mg capsule,delayed 40 mg PO BID #180 cap s 01/13/25 release estradiol 0.01% (0.1 mg/gram) 1 g vaginal DAILY 30 day s #42.5 01/23/25 vaginal cream grams dupilumab 200 mg/1.14 mL 200 mg (1.14 mL) subcut Q2W #2.28 01/27/25 subcutaneous pen injector mL (Dupixent) ergocalciferol (vitamin D2) 1,250 1,250 mcg PO QWEEK 9 0 days #13 caps 02/05/25 mcg (50,000 unit) capsule acetaminophen 500 mg tablet 500 mg PO Q6H PRN pain or fever 30 03/14/25 (Tylenol Extra Strength) days #120 tabs chlorthalidone 25 mg tablet 25 mg PO DAILY 90 days #90 tabs 03/21/25 metronidazole 500 mg tablet 500 mg PO TID 10 days #30 tabs 04/14/25 Allergies Allergy/AdvReac Type Severity Reaction Status Date / Time cephalexin Allergy Severe Rash Verified 04/22/25 10:26 seafood Allergy Severe Anaphylaxis Verified 04/22/25 10:26 vancomycin (VANCOMYCIN) Allergy Severe ANAPHYLAXIS, Verified 04/22/25 10:26 hives aspirin (ASPIRIN) Allergy Intermediate rash, Verified 04/22/25 10:26 asthma codeine (CODEINE) Allergy Mild rash Verified 04/22/25 10:26 egg (EGGS) Allergy Mild VOMITING Verified 04/22/25 10:26 peanut (PEANUTS) Allergy Mild HIVES,DIARR Verified 04/22/25 10:26 HEA amoxicillin (From Augmentin) Allergy hives, Verified 04/22/25 10:26 swelling, difficulty breathing clavulanic acid (From Allergy hives, Verified 04/22/25 10:26 Augmentin) swelling mushroom Allergy Rash Verified 04/22/25 10:26 lactose AdvReac Intermediate diarrhea Verified 04/22/25 10:26 cepha mixlexin Allergy Intermediate racing Uncoded 04/22/25 10:26 heart, rash Review of Systems Review of Systems: Constitutional : No Fever, No Chills ENT/Mouth : No Ear Pain, No Hoarseness, No sore throat Eyes: No Eye Pain, No Swelling, No Redness, No Foreign Body Cardiovascular : No Chest Pain, No SOB Respiratory : No Cough, No Dyspnea Gastrointestinal : No Nausea, No Vomiting, No Diarrhea, No abdominal Pain Genitourinary : No Dysuria, No Hematuria Musculoskeletal : positive joint pain, No Myalgias, pos Joint Swelling Skin : No Skin lacerations, No rash Neuro : No Weakness, No Numbness All other systems reviewed and are negative PMFSH Past Medical History Attestation statement: The following information was validated with the patient. Source: old records reviewed Medical History Physical exam Urinary pain Rotator cuff tendonitis Chest pain Diarrhea Dyspnea on exertion History of pulmonary embolism Encounter for screening examination for sexually transmitted disease Women's annual routine gynecological examination Abdominal bloating Acute diarrhea COVID-19 Pulmonary embolism Pulmonary embolism Vaginal itching Hx of human papillomavirus infection Candidiasis of mouth and esophagus Abdominal cramping Pneumonia Bile salt-induced diarrhea History of pilonidal cyst Gastritis IBS (irritable bowel syndrome) Hypertension Pre-eclampsia Irritable bowel syndrome with both constipation and diarrhea Gallstones Surgical History H/O cervical polypectomy Hx of esophagogastroduodenoscopy H/O colonoscopy History of surgical removal of pilonidal cyst S/P tonsillectomy History of section History of cholecystectomy Family History Family History Father Heart attack GERD (gastroesophageal reflux disease) Peptic ulcer disease Mother CHF (congestive heart failure) Afib Diverticulitis History of bowel resection Hypothyroid COVID-19 Maternal Aunt Diabetes Maternal Uncle Cancer Maternal Grandmother Cancer Brother Mental health disorder Social History Social History Household Members: Spouse Housing: Apartment Are you a primary care transitions manager to a significant other at home: No Do you presently have visiting nurse or other home services: Yes (phone visits) Alcohol intake: former Patient Tobacco Use Status: Never used Tobacco e-Cigarette/Vaping Use: Never Used Second Hand Smoke Exposure: No Do you have a plan to hurt others: No Plan service: No Current occupational status: retired Cognitive needs: No Hearing needs: No Vision needs: No Physical Exam Vital Signs: Vital Signs: Last Vital Signs Temp 98 F 04/22/25 10:24 Pulse 67 04/22/25 10:24 Resp 18 04/22/25 10:24 BP 122/63 04/22/25 10:24 Pulse Ox 98 04/22/25 10:24 O2 Del Method Room Air 04/22/25 10:24 BMI result Body Mass Index 32.7 Appearance: Alert. Oriented X3. No acute distress. Eyes: Pupils equal, round and reactive to light. ENT: Pharynx normal. Neck: Normal inspection. Neck supple. CVS: Pulses normal. Respiratory: No respiratory distress. Abdomen: Soft and nontender. Skin: Skin warm and dry. Normal skin color. Extremities: No lower extremity edema. R foot ttp along R lateral metatarsals and under the ball of the foot as well as 4th and 5th toe - pulses intact, sensation intact, no bruising, mild swelling dorsum of foot. Neuro: Oriented X 3. No motor deficit. No sensory deficit. CN2-12 intact Medical Decision Making Medical Decision Making MDM Narrative: 64 yo female with PMH of YESSICA, chronic bronchitis, depression, HTN, migraines, COPD, IBS here with c/o R foot injury she is NV intact, no pain on the ankle will obtain xray. Differential Diagnosis Differential Diagnoses: The differential diagnosis associated with the presentation includes strain, fracture, bone bruise Admission/Observation Consideration of admission/observation: Escalation of care including admission/observation considered Independent Interpretation I performed an independent interpretation of an: Plain X-Ray Radiology Impression Discussion of test interpretation with radiology: I have reviewed the radiologist's reading. External Record Review External record reviewed: Outpatient record Prescription Management I considered prescription management with: Pain Medication Procedures Orthopedic Splinting/Casting Injury #1: Side: right Lower Extremity Injury Location: foot Lower Extremity Immobilizer: post-op shoe Other Orthopedic Equipment: crutches Discharge Plan Discharge Clinical Impression: Contusion of foot Patient Disposition: Home, Self-Care Instructions: Foot Contusion (ED) Additional Instructions: post op shoe for 5 days crutches as needed weight bearing as needed no broken bone noted use tylenol or motrin as needed for pain HISTORY: pain with walking blunt trauma COMPARISON: Comparison is made with the prior examination dated 01/29/2017. FINDINGS: Three views of the right foot are submitted. Osseous mineralization is normal. There is no fracture or dislocation. The joint spaces are preserved. There is a plantar calcaneal spur. The soft tissues are unremarkable. XR/XR foot RT min 3V IMPRESSION: No evidence of fracture of the right foot. Prescriptions: No Action lisinopril 40 mg tablet 40 mg PO DAILY 90 Days Qty: 90 3RF estradiol 0.01 % (0.1 mg/gram) cream 1 g vaginal DAILY 30 Days Qty: 42.5 0RF Dupixent Pen 200 mg/1.14 mL pen injector 200 mg subcut Q2W Qty: 2.28 12RF ergocalciferol (vitamin D2) 1,250 mcg (50,000 unit) capsule 1,250 mcg PO QWEEK 90 Days Qty: 13 1RF acetaminophen [Tylenol Extra Strength] 500 mg tablet 500 mg PO Q6H PRN (Reason: pain or fever) 30 Days Qty: 120 6RF chlorthalidone 25 mg tablet 25 mg PO DAILY 90 Days Qty: 90 1RF hydroxyzine HCl 10 mg tablet 10 - 20 mg PO Q6H PRN (Reason: anxiety) sumatriptan succinate 50 mg tablet 50 mg PO DAILY PRN (Reason: headaches) trazodone 100 mg tablet 50 mg PO DAILY lorazepam 1 mg tablet 1 mg PO DAILY PRN calcium carbonate 600 mg calcium (1,500 mg) tablet 600 mg PO BID melatonin 3 mg tablet 3 mg PO BEDTIME budesonide-formoterol [Symbicort] 160-4.5 mcg/actuation HFA aerosol inhaler 2 puff PO BID Qty: 10.2 6RF albuterol sulfate 90 mcg/actuation HFA aerosol inhaler 90 mcg inhalation DAILY Qty: 1 6RF albuterol sulfate 2.5 mg /3 mL (0.083 %) solution for nebulization 2.5 mg inhalation TID PRN (Reason: asthma) Qty: 180 6RF cyclobenzaprine 5 mg tablet 5 mg PO BEDTIME Qty: 14 0RF metronidazole 500 mg tablet 500 mg PO TID 10 Days Qty: 30 0RF Creon 24,000-76,000 -120,000 unit capsule,delayed release(DR/EC) 2 cap PO BID 30 Days Qty: 120 6RF omeprazole 40 mg capsule,delayed release(DR/EC) 40 mg PO BID Qty: 180 1RF dicyclomine 20 mg tablet 20 mg PO QID Qty: 360 2RF Print Language: Vietnamese
[2025-04-22 11:31] VITALS: BP 122/63; PULSE 67; RESP 18; TEMP 36.6; O2SAT 98
--- OUTSIDE RECORDS SUMMARY | 2025-04-22 12:04 | XMS_ITS | Encounter Summary ---
Author Organization [employer] Address [address] [facility] [address] [place] [address] Care Team Providers Care Care Rep Name Role Phone Iqra Nelson MD Primary Care Provider + Johnny Casanova PharmD Unavailable [phone] Toñito Caraballo Unavailable Unavailable Reason for Visit * Reason Onset Date Comments Med Refill Appointment 10/11/2023 LVM-Re: her apt for today as [id number] @2pm Encounter Details Date Type Department Care Team (Late st Contact Info) Description 10/11/2023 Refill [facility] [address] [place] [address] Toñito Caraballo FNP Social History Tobacco Use [...] documented as of this encounter Care Teams Care Rep Relationship Specialty Start Date End Date Iqra Nelson MD [address] [place] [phone] PCP - General Family Medicine 12/05/16 04/08/24 Johnny Casanova PharmD [address] [place] [phone] Pharmacist Internal Medicine 09/26/22 Toñito Caraballo FNP [address] [place] [phone] Nurse Practitioner Family Medicine 08/08/23 documented as of this encounter
--- OUTSIDE RECORDS SUMMARY | 2025-04-22 12:04 | XMS_ITS | Clinical Summary ---
Author Organization [facility] Address [address] [place] [phone] Phone Care Team Providers Care Cake Knocker Name Role Phone Iqra Nelson MD Primary [...] file Insurance [facility] MEDICARE PART A & B [place] [facility] [place] & B Care Teams Cake Knocker Relationship Specialty Start Date End Date Iqra Nelson MD [address] [place] [address] [address] [place] [address] PCP - General Internal Medicine 10/19/20 Additional Source Comments The information contained in this document represents components of the legal health record. It is not the complete legal health record.[facility]
== END 2025-04-22 11:31 | disposition home or self-care (01) ==
LOC: HO.ED 11:17
PROVIDERS: Emergency Provider Emergency Medicine; PCP Internal Medicine
DX: S90.31XA Contusion of right foot, initial encounter (principal); I10 Essential (primary) hypertension; J44.9 Chronic obstructive pulmonary disease, unspecified; X58.XXXA Exposure to other specified factors, initial encounter; Y93.89 Activity, other specified; Y92.481 Parking lot as the place of occurrence of the external cause; Y99.8 Other external cause status; Z79.899 Other long term (current) drug therapy
CPT/HCPCS: 73630; 99282; 99283

== ENCOUNTER → 2025-04-22 10:27 | Outpatient (BNV) | payer OTHER, SELFPAY | PROVIDERS: Emergency Provider Emergency Medicine; PCP Student in an Organized Health Care Education/Training Program; Visit Provider Radiology Diagnostic Radiology | DX: M79.671 Pain in right foot (principal) | CPT/HCPCS: 73630 ==

== ENCOUNTER 2025-04-28 12:59 | Outpatient (AMB) | payer OTHER, SELFPAY ==
--- NOTE | 2025-04-28 13:02 | A.OFFVIS_ITS ---
Vital Signs 04/28/25 13:03 Height 4 ft 11 in Weight 165 lb BMI 33.3 BP 124/74 Blood Pressure Location Lt brachial Position Sitting Pulse 68 Pulse Source Pulse Oximeter Pulse Oximetry (%) 100 Oxygen Delivery Method Room Air Intake Visit Reasons: Asthma/COPD Allergies cephalexin Allergy (Severe, Verified 04/28/25 13:08) Rash seafood Allergy (Severe, Verified 04/28/25 13:08) Anaphylaxis vancomycin (VANCOMYCIN) Allergy (Severe, Verified 04/28/25 13:08) ANAPHYLAXIS, hives aspirin (ASPIRIN) Allergy (Intermediate, Verified 04/28/25 13:08) rash, asthma codeine (CODEINE) Allergy (Mild, Verified 04/28/25 13:08) rash egg (EGGS) Allergy (Mild, Verified 04/28/25 13:08) VOMITING peanut (PEANUTS) Allergy (Mild, Verified 04/28/25 13:08) HIVES,DIARRHEA amoxicillin (From Augmentin) Allergy (Verified 04/28/25 13:08) hives, swelling, difficulty breathing clavulanic acid (From Augmentin) Allergy (Verified 04/28/25 13:08) hives, swelling mushroom Allergy (Verified 04/28/25 13:08) Rash lactose Adverse Reaction (Intermediate, Verified 04/28/25 13:08) diarrhea cepha mixlexin Allergy (Intermediate, Uncoded 04/22/25 10:26) racing heart, rash HPI HPI Asthma/COPD: Details: 64-year-old lady, lifetime nonsmoker, followed for severe persistent asthma, environmental allergies, and post COVID-19 syndrome.? Patient was not able to tolerate immunologic therapy for her asthma including Fasenra and Xolair, but had good response with Dupixent. She also has had significant side effects after COVID vaccines.? After the last office visit she restarted on Symbicort with improved symptom control. She denies acute exacerbations. [facility] Medical History Physical exam Urinary pain Rotator cuff tendonitis Chest pain Diarrhea Dyspnea on exertion History of pulmonary embolism Encounter for screening examination for sexually transmitted disease Women's annual routine gynecological examination Abdominal bloating Acute diarrhea COVID-19 Pulmonary embolism Pulmonary embolism Vaginal itching Hx of human papillomavirus infection Candidiasis of mouth and esophagus Abdominal cramping Pneumonia Bile salt-induced diarrhea History of pilonidal cyst Gastritis IBS (irritable bowel syndrome) Hypertension Pre-eclampsia Irritable bowel syndrome with both constipation and diarrhea Gallstones Surgical History H/O cervical polypectomy Hx of esophagogastroduodenoscopy H/O colonoscopy History of surgical removal of pilonidal cyst S/P tonsillectomy History of section History of cholecystectomy Family History Father Heart attack GERD (gastroesophageal reflux disease) Peptic ulcer disease Mother CHF (congestive heart failure) Afib Diverticulitis History of bowel resection Hypothyroid COVID-19 Maternal Aunt Diabetes Maternal Uncle Cancer Maternal Grandmother Cancer Brother Mental health disorder Social History Household Members: Spouse Housing: Apartment Are you a primary healthcare prof to a significant other at home: No Do you presently have visiting nurse or other home services: Yes (phone visits) Alcohol intake: former Patient Tobacco Use Status: Never used Tobacco e-Cigarette/Vaping Use: Never Used Second Hand Smoke Exposure: No service: No Current occupational status: retired Cognitive needs: No Hearing needs: No Vision needs: No Female Reproductive History Menstrual Age of Menarche: 10 Review of Systems Const Denies daytime sleepiness, Denies excessive sweating, Denies fatigue, Denies fever(s), Denies lethargy, Denies malaise, Denies night sweats, Denies snoring and Denies weight loss Eyes Denies blurry vision and Denies itchy eyes ENT Denies nasal congestion, Denies post nasal drip, Denies sinus pain, Denies sinus pressure and Denies other ( Thrush) Card Denies chest pain, Denies pedal edema, Denies dyspnea, Denies orthopnea and Denies paroxysmal nocturnal dyspnea Resp Denies cough, Denies hemoptysis, Denies excessive phlegm production, Denies dyspnea, Denies snoring and Denies wheezing GI Denies abdominal pain and Denies heartburn Musc Denies myalgias, Denies arthralgias and Denies joint swelling Skin/Breast Denies rash Neuro Denies memory loss and Denies seizure-like activity Psych Denies abnormal sleep pattern, Denies anxiety and Denies memory loss Endo Denies excessive sweating, Denies fatigue and Denies heat intolerance Migue/Lymph Denies easy bruising Aller/Immun Denies itchy eyes, Denies seasonal rhinorrhea and Denies wheezing Physical Exam Vital Signs: Last Vital Signs Pulse 68 04/28/25 13:03 BP 124/74 04/28/25 13:03 Pulse Ox 100 04/28/25 13:03 Oxygen Delivery Method Room Air 04/28/25 13:03 BMI result Body Mass Index 33.3 Const General: no acute distress and alert Nutritional Appearance: not obese Orientation/consciousness: Other orientation findings ( oriented) HEENT Head: Yes atraumatic Eyes General: appearance normal, both eyes and all related structures Sclerae: sclerae normal EOM: EOMs intact bilaterally Neck Neck: Yes supple Lymphatic: no lymphadenopathy noted Resp Effort & Inspection: normal respiratory effort and no use of accessory muscles Auscultation: clear to auscultation bilaterally Cardio Rate: regular rate Rhythm: regular rhythm Heart sounds: no gallops, no murmurs and no rubs Skin General skin exam: other ( warm) Extrem General: No clubbing, No cyanosis and No edema Assessment & Plan Assessment & Plan (1) Asthma: Code(s): J45.909 - Unspecified asthma, uncomplicated Category: Medical Qualifiers: Asthma severity: moderate Asthma persistence: persistent Asthma complication type: uncomplicated Qualified Code(s): J45.40 - Moderate persistent asthma, uncomplicated Plan: Improved control after restarting Symbicort. Continue Symbicort, Dupixent, and albuterol MDI/nebs. (2) Environmental allergies: Code(s): Z91.09 - Other allergy status, other than to drugs and biological substances Category: Medical Plan: Improved control on Dupixent. Continue current regimen. Coding Level of Care Code Est Pt Level 4 (09011) Diagnoses Moderate persistent asthma without complication J45.40 Asthma severity: moderate Asthma persistence: persistent Asthma complication type: uncomplicated Environmental allergies Z91.09
[2025-04-28 13:03] VITALS: BP 124/74; PULSE 68; O2SAT 100; BMI 33.3
--- OUTSIDE RECORDS SUMMARY | 2025-04-28 13:47 | XMS_ITS | Clinical Summary ---
Author Organization [facility] Address [address] [place] [phone] Phone Care Team Providers Care Tool And Die Repairer Name Role Phone Iqra Nelson MD [...] file Medical Devices Not on file Insurance [facility] MEDICARE PART A & B [place] & [place] & [place] A & [facility] & [place] & [place] A & B Care Teams Tool And Die Repairer Relationship Specialty Start Date End Date Iqra Nelson MD [address] [place] [address] [address] [place] [address] PCP - General Internal Medicine 10/19/20 Additional Source Comments The information contained in this document represents components of the legal health record. It is not the complete legal health record.[facility]
--- OUTSIDE RECORDS SUMMARY | 2025-04-28 13:47 | XMS_ITS | Encounter Summary ---
Author Organization [employer] Address [address] [facility] [address] [place] [address] Care Team Providers Care Motorized Squad Sergeant Name Role Phone Iqra Nelson MD Primary Care Provider + Johnny Casanova PharmD Unavailable [phone] Toñito Caraballo Unavailable Unavailable Reason for Visit * Reason Onset Date Comments Med Refill Appointment 10/11/2023 LVM-Re: her apt for today as [id number] @2pm Encounter Details Date Type Department Care Team (Late st Contact Info) Description 10/11/2023 Refill [facility] [address] [place] [address] Toñito Caraballo FNP Social History Tobacco Use [...] documented as of this encounter Care Teams Motorized Squad Sergeant Relationship Specialty Start Date End Date Iqra Nelson MD [address] [place] [phone] PCP - General Family Medicine 12/05/16 04/08/24 Johnny Casanova PharmD [address] [place] [phone] Pharmacist Internal Medicine 09/26/22 Toñito Caraballo FNP [address] [place] [phone] Nurse Practitioner Family Medicine 08/08/23 documented as of this encounter
== END 2025-04-28 13:19 | disposition home or self-care (01) ==
LOC: HO.HPS 13:00
PROVIDERS: PCP Internal Medicine; Visit Provider Internal Medicine Pulmonary Disease
DX: J45.40 Moderate persistent asthma, uncomplicated (principal); Z91.09 Other allergy status, other than to drugs and biological substances
CPT/HCPCS: 99214

== ENCOUNTER → 2025-04-28 12:59 | Outpatient (BNVA) | payer OTHER, SELFPAY | PROVIDERS: PCP Internal Medicine; Visit Provider Internal Medicine Pulmonary Disease | DX: J45.40 Moderate persistent asthma, uncomplicated (principal); Z91.09 Other allergy status, other than to drugs and biological substances | CPT/HCPCS: 99212 ==

== ENCOUNTER 2025-05-26 13:03 | Outpatient (REF) | payer OTHER, SELFPAY ==
--- NOTE | ~2025-05-26 | XR_ITS ---
EXAMINATION: XR ABDOMEN WITH DECUBITUS VIEWS CLINICAL INDICATION: R14.0 - Abdominal distension (gaseous) COMPARISON: None available. TECHNIQUE: Upright and left decubitus abdomen x-ray FINDINGS: Clips in the right upper quadrant are most consistent with cholecystectomy. There is minimal small bowel gas. There is moderate stool in the right and descending colon. There are no abnormal air-fluid levels. Mild degenerative changes are present in the SI and pubic symphysis joints. XR/XR abdomen w decubitus IMPRESSION: Unremarkable bowel gas pattern. Cholecystectomy. Electronically signed by: Kwan Rolle MD 05/26/2025 02:49 PM EDT
== END 2025-05-26 13:04 | disposition home or self-care (01) ==
LOC: HO.LAB 13:03
PROVIDERS: PCP Internal Medicine; Visit Provider Nurse Practitioner
DX: K21.9 Gastro-esophageal reflux disease without esophagitis (principal); K58.2 Mixed irritable bowel syndrome; R14.0 Abdominal distension (gaseous); R63.5 Abnormal weight gain; R74.01 Elevation of levels of liver transaminase levels; R11.2 Nausea with vomiting, unspecified; Z68.33 Body mass index [BMI] 33.0-33.9, adult; Z79.899 Other long term (current) drug therapy
CPT/HCPCS: 36415; 74021; 84443; 99212

== ENCOUNTER 2025-05-26 13:03 | Outpatient (AMB) | payer OTHER, SELFPAY ==
--- NOTE | 2025-05-26 13:07 | A.OFFVIS_ITS ---
Vital Signs 05/26/25 13:18 Height 4 ft 11 in Weight 166 lb 3.657 oz BMI 33.6 BP 147/67 H Blood Pressure Location Lt brachial Position Sitting Pulse 67 Intake Visit Reasons: 6 week follow up Intake Note: Ada returns to office in follow up of abdominal bloating. CC: Patient states that she completed the course of abx. She states that she has noticed that after starting taking probiotics her constipation is better. She continues to have a lot of heartburn and abdominal bloating. Pt states that after eating her bloating is worst and it bother her to wear tight clothing around her belly. Field Coil Winder Required: No Accompanied by: Self / Same As Patient Allergies cephalexin Allergy (Severe, Verified 05/26/25 13:30) Rash seafood Allergy (Severe, Verified 05/26/25 13:30) Anaphylaxis vancomycin (VANCOMYCIN) Allergy (Severe, Verified 05/26/25 13:30) ANAPHYLAXIS, hives aspirin (ASPIRIN) Allergy (Intermediate, Verified 05/26/25 13:30) rash, asthma codeine (CODEINE) Allergy (Mild, Verified 05/26/25 13:30) rash egg (EGGS) Allergy (Mild, Verified 05/26/25 13:30) VOMITING peanut (PEANUTS) Allergy (Mild, Verified 05/26/25 13:30) HIVES,DIARRHEA amoxicillin (From Augmentin) Allergy (Verified 05/26/25 13:30) hives, swelling, difficulty breathing clavulanic acid (From Augmentin) Allergy (Verified 05/26/25 13:30) hives, swelling mushroom Allergy (Verified 05/26/25 13:30) Rash lactose Adverse Reaction (Intermediate, Verified 05/26/25 13:30) diarrhea cepha mixlexin Allergy (Intermediate, Uncoded 04/22/25 10:26) racing heart, rash HPI HPI 6 week follow up: Details: Assessment & Plan (1) Abdominal bloating: Code(s): R14.0 - Abdominal distension (gaseous) Category: Medical (2) GERD (gastroesophageal reflux disease): Code(s): K21.9 - Gastro-esophageal reflux disease without esophagitis Category: Medical Qualifiers: Esophagitis presence: esophagitis presence not specified Qualified Code(s): K21.9 - Gastro-esophageal reflux disease without esophagitis (3) Transaminitis: Comment: BASELINE LABS 12/30/24 13:04 Estimated GFR > 60 Total Bilirubin 0.6 AST 36 H ALT 35 H Alkaline Phosphatase 112 C-Reactive Protein 1.08 H CURRENT LABS US OF ABDOMEN 07/09/24 IMPRESSION: Unremarkable ultrasound. No ultrasound evidence of the hernia. *Ultrasound has limited sensitivity detecting some of the solid soft tissue lesions; if signs and/or symptoms persist, cross-sectional imaging, preferably MRI with IV contrast, recommended. Laboratory Tests Code(s): R74.01 - Elevation of levels of liver transaminase levels Category: Medical (4) Irritable bowel syndrome with both constipation and diarrhea: Comment: now more bile salt diarrhea since she is status post cholecystectomy Code(s): K58.2 - Mixed irritable bowel syndrome Category: Medical (5) Periumbilical abdominal pain: Code(s): R10.33 - Periumbilical pain Category: Medical Plan HER BLOATING HAS NOT CHANGED WITH THE CREON. She is currently on omeprazole, dicyclomine, and the Creon. Simethicone made her bloating feel worse. She is not eating much because she will have severe bloating then burping and cramping so she does not eat when she has to go out and about. I remind her to get the labs for her transaminitis. She is frustrated because she says her primary care told her that her liver is fatty because she eats too many fatty foods, but she does not need any as she can not tolerate them. I explained to her that fatty liver is not caused by the intake of fatty foods but rather by inheritance and being overweight. Being overweight is more of a caloric intake problem then it is tied to types of foods eaten. Stop creon, start flagyl (she does not drink ETOH), and probiotic. Her stools continue to go back and forth between constipation and diarrhea. At times she will see yellow when the stools are looser which is likely bile. ROV 6 weeks. Medications: New metronidazole 500 mg PO TID 30 tabs 0RF 10 days On Hold [id number] 24,000-76,000 -120,000 unit (Creon) Hold Comment: Doctor's Order 2 caps PO BID 30 days 120 caps 6RF K58.9 - Irritable bowel syndrome, unspecified TODAY'S VISIT FORMERLY [facility], 1928[facility]1983 Medical History Physical exam Urinary pain Rotator cuff tendonitis Chest pain Diarrhea Dyspnea on exertion History of pulmonary embolism Encounter for screening examination for sexually transmitted disease Women's annual routine gynecological examination Abdominal bloating Acute diarrhea COVID-19 Pulmonary embolism Pulmonary embolism Vaginal itching Hx of human papillomavirus infection Candidiasis of mouth and esophagus Abdominal cramping Pneumonia Bile salt-induced diarrhea History of pilonidal cyst Gastritis IBS (irritable bowel syndrome) Hypertension Pre-eclampsia Irritable bowel syndrome with both constipation and diarrhea Gallstones Surgical History H/O cervical polypectomy Hx of esophagogastroduodenoscopy H/O colonoscopy History of surgical removal of pilonidal cyst S/P tonsillectomy History of section History of cholecystectomy Family History Father Heart attack GERD (gastroesophageal reflux disease) Peptic ulcer disease Mother CHF (congestive heart failure) Afib Diverticulitis History of bowel resection Hypothyroid COVID-19 Maternal Aunt Diabetes Maternal Uncle Cancer Maternal Grandmother Cancer Brother Mental health disorder Social History Household Members: Spouse Housing: Apartment Are you a primary healthcare facility administrator to a significant other at home: No Do you presently have visiting nurse or other home services: Yes (phone visits) Alcohol intake: former Patient Tobacco Use Status: Never used Tobacco e-Cigarette/Vaping Use: Never Used Second Hand Smoke Exposure: No service: No Current occupational status: retired Cognitive needs: No Hearing needs: No Vision needs: No Female Reproductive History Menstrual Age of Menarche: 10 Review of Systems Const Denies fatigue, Denies fever(s), Denies night sweats, Denies poor appetite, Reports weight gain and Denies weight loss ENT Reports Normal hearing present, Denies dental pain, Denies dysphagia, Denies hearing loss, Denies mouth pain, Denies odynophagia, Denies throat swelling, Denies tongue swelling and Reports other (Dentition adequate) Card Reports no additional complaints Resp Reports no additional complaints GI Details: Denies abdominal pain, Denies melena, Reports bloating, Denies hematochezia, Reports constipation, Denies GI cramping, Denies dysphagia, Denies excessive flatus, Denies early satiety, Reports heartburn, Denies diarrhea, Denies nausea, Denies odynophagia, Denies vomiting and Denies hematemesis Skin/Breast Denies pruritus, Denies lesions, Denies rash and Denies jaundice Neuro Reports Normal hearing present and Denies Abnormal speech present Psych Reports anxiety Endo Denies fatigue Aller/Immun Denies throat swelling and Denies tongue swelling Physical Exam Vital Signs: Last Vital Signs Pulse 67 05/26/25 13:18 BP 147/67 H 05/26/25 13:18 BMI result Body Mass Index 33.6 Const General: cooperative, no acute distress, well developed and well groomed Nutritional Appearance: well nourished and obese Orientation/consciousness: oriented to person, oriented to place and oriented to time Limitations: No language barrier HEENT Head: Yes normocephalic and Yes atraumatic Eyes General: appearance normal, both eyes and all related structures Pupils: Equal, round and reactive pupils present Neck Neck: Yes normal visual inspection and Yes no lymphadenopathy Thyroid: Thyroid normal Resp Effort & Inspection: normal respiratory effort and able to speak in complete sentences Auscultation: clear to auscultation bilaterally Cardio Rate: regular rate Rhythm: regular rhythm Heart sounds: Normal, physiologic split S2 sound present Peripheral pulses: radial pulses present and posterior tibial pulses present GI Inspection: No distended, Yes Abdominal panniculus present and Yes obesity Palpation (GI): Soft to palpation, nontender, no guarding, not rigid and No hepatosplenomegaly present Percussion: Yes normal to percussion Auscultation: normal bowel sounds Rectal Exam - Female: deferred Skin General skin exam: no rashes or lesions noted, turgor normal, skin not dry, no jaundice, No spider nevi and no striae Rashes: no rashes Nails: normal Neuro General: oriented to person, oriented to place and oriented to time Cranial nerves: Yes Equal, round and reactive pupils present and Yes Normal hearing present Speech: No Abnormal speech present Extrem General: Yes normal to inspection, No clubbing, No cyanosis and No edema Psych Appearance: grossly normal and well kempt Mental Status: mental status grossly normal Speech and movement: Normal speech and movement present Affect: normal affect Attitude: cooperative Thought process: Normal thought process present and not confabulating Thought content: Normal thought content present Insight: Fair insight present (Psych) and Limited insight present (Psych) Judgement: Fair judgement present (Psych) and Limited judgement present (Psych) Results Reviewed Results Reviewed: Laboratory Tests 12/25/23 12/30/24 04/14/25 14:15 13:04 14:11 Total Bilirubin 0.6 AST 36 H ALT 35 H Alkaline Phosphatase 112 Liver Total Bilirubin 0.4 Liver Fibrosis Stage F0 Anti-Mitochondrial Ab NEGATIVE Anti-Smooth Muscle Ab <20 Hepatitis A IgM Ab Nonreactive Hep Bs Antigen Negative Hep Bs Antibody NONREACTIVE Hep B Core Total Ab Nonreactive Hepatitis C Ab (EIA) Nonreactive Ultrasound OF THE ABDOMEN 03/05/2025 Findings: The visualized pancreas, aorta, and inferior vena cava are unremarkable. Liver normal size and mildly echogenic. Right lobe 12.1 cm length. No focal hepatic masses. Common duct 3.0 mm diameter. Post cholecystectomy. No sonographic Machuca sign. Main portal vein antegrade. Right kidney normal size, 9.3 cm in length. Normal cortical width and echotexture. No solid or cystic renal masses. No nephrolithiasis. No hydronephrosis. Left kidney normal, 9.0 cm in length. Normal cortical width and echotexture. No solid or cystic renal masses. No nephrolithiasis. No hydronephrosis. Spleen measures 11.2 cm. No splenic masses. No ascites. No lymphadenopathy. Impression: 1. Post cholecystectomy. 2. Mildly echogenic liver reflecting mild diffuse hepatic steatosis or diffuse hepatocellular disease. No focal hepatic lesions. Assessment & Plan Assessment & Plan (1) GERD (gastroesophageal reflux disease): Code(s): K21.9 - Gastro-esophageal reflux disease without esophagitis Category: Medical Qualifiers: Esophagitis presence: esophagitis presence not specified Qualified Code(s): K21.9 - Gastro-esophageal reflux disease without esophagitis (2) Transaminitis: Comment: BASELINE LABS 12/30/24 13:04 Estimated GFR > 60 Total Bilirubin 0.6 AST 36 H ALT 35 H Alkaline Phosphatase 112 C-Reactive Protein 1.08 H CURRENT LABS US OF ABDOMEN 03/05/2025 Findings: The visualized pancreas, aorta, and inferior vena cava are unremarkable. Liver normal size and mildly echogenic. Right lobe 12.1 cm length. No focal hepatic masses. Common duct 3.0 mm diameter. Post cholecystectomy. No sonographic Machuca sign. Main portal vein antegrade. Right kidney normal size, 9.3 cm in length. Normal cortical width and echotexture. No solid or cystic renal masses. No nephrolithiasis. No hydronephrosis. Left kidney normal, 9.0 cm in length. Normal cortical width and echotexture. No solid or cystic renal masses. No nephrolithiasis. No hydronephrosis. Spleen measures 11.2 cm. No splenic masses. No ascites. No lymphadenopathy. Impression: 1. Post cholecystectomy. 2. Mildly echogenic liver reflecting mild diffuse hepatic steatosis or diffuse hepatocellular disease. No focal hepatic lesions. Code(s): R74.01 - Elevation of levels of liver transaminase levels Category: Medical (3) Irritable bowel syndrome with both constipation and diarrhea: Comment: now more bile salt diarrhea since she is status post cholecystectomy Code(s): K58.2 - Mixed irritable bowel syndrome Category: Medical (4) Abdominal bloating: Code(s): R14.0 - Abdominal distension (gaseous) Category: Medical (5) Weight gain: Code(s): R63.5 - Abnormal weight gain Category: Medical (6) Nausea and vomiting: Code(s): R11.2 - Nausea with vomiting, unspecified Category: Medical Plan on omeprazole, dicyclomine, and the Creon. Simethicone made her bloating feel worse. - The patient is a 64-year-old female presenting with persistent bloating. - Previously trialed treatments include simethicone, Creon, and metronidazole without symptomatic relief. This would seem to exclude pancreatic exocrine insufficiency or SIBO as underlying causes of her subjective feeling of bloating. - Probiotics introduced relief for constipation but did not affect bloating significantly. - Patient notes weight gain and increased abdominal tightness, previously manageable with lifestyle adjustments. - Bloating symptoms unresponsive to dietary changes, occasionally alleviated by dicyclomine. - Endures nausea and occasional vomiting, exacerbated by symptoms worsening. - we will try to get a thyroid to see if this is contributing to weight gain. I also think an x-ray of the abdomen be appropriate so that we can see if there is any significant amount of gas trapping going on in the abdomen. I am now unc ertain if this truly is bloating from gas or whether she simply experiencing abdominal weight gain with more central adiposity contributing to her symptoms. We will also give her some Zofran for her nausea in the short term. Return office visit in 6 weeks Orders: Orders TSH reflex Free T4 Today R14.0 - Abdominal distension (gaseous), R63.5 - Abnormal weight gain XR abdomen w decubitus Today R14.0 - Abdominal distension (gaseous), R63.5 - Abnormal weight gain Medications: New ondansetron 4 mg PO Q8H PRN 60 tabs 0RF nausea and vomiting 30 days R11.2 - Nausea with vomiting, unspecified, R63.5 - Abnormal weight gain Refilled omeprazole 40 mg PO BID 180 caps 1RF K21.9 - Gastro-esophageal reflux disease w ithout esophagitis dicyclomine 20 mg PO QID 360 tabs 2RF K58.2 - Mixed irritable bowel syndrome, R10.9 - Unspecified abdominal pain Discontinued [id number] 24,000-76,000 -120,000 unit (Creon) Discontinued Reason: Doctor's Order 2 caps PO BID 30 days 120 caps 6RF K58.9 - Irritable bowel syndrome, unspecified Coding Level of Care Code Est Pt Level 3 (36311) Diagnoses Gastroesophageal reflux disease, unspecified whether esophagitis present K21.9 Esophagitis presence: esophagitis presence not specified Transaminitis R74.01 Irritable bowel syndrome with both constipation and diarrhea K58.2 Abdominal bloating R14.0 Weight gain R63.5 Nausea and vomiting R11.2
[2025-05-26 13:18] VITALS: BP 147/67; PULSE 67; BMI 33.6
--- OUTSIDE RECORDS SUMMARY | 2025-05-26 15:20 | XMS_ITS | Encounter Summary ---
Author Organization [employer] Address [address] [facility] [address]t [place] [address] Care Team Providers Care Firefighting Equipment Specialist Name Role Phone Iqra Nelson MD Primary Care Provider + Johnny Casanova PharmD Unavailable [phone] Toñito Caraballo REEL STRIPPER Unavailable Unavailable Encounter Details Date Type Department Care Team ([facility] st Contact Info) Description 02/12/2024 Orders Only [facility] MEDICINE [address] [place] [address] Provider, MD Antoine Social History Tobacco Use [...] documented as of this encounter Care Teams Firefighting Equipment Specialist Relationship Specialty Start Date End Date Iqra Nelson MD [address] [place] [id number] PCP - General Family Medicine 12/05/16 04/08/24 Johnny Casanova PharmD [address] [place] [phone] Pharmacist Internal Medicine 09/26/22 Toñito Caraballo FNP [address] [place] [id number] Nurse Practitioner Family Medicine 08/08/23 documented as of this encounter
--- OUTSIDE RECORDS SUMMARY | 2025-05-26 15:20 | XMS_ITS | Encounter Summary ---
Author Organization [employer] Address [address] [facility] [address] [place] [address] Care Team Providers Care Cash Applications Specialist Name Role Phone Iqra Nelson MD Primary Care Provider + Johnny Casanova PharmD Unavailable [phone] Toñito Caraballo Unavailable Unavailable Reason for Visit * Reason Comments Med Refill Encounter Details Date Type Department Care Team (Late st Contact Info) Description 04/22/2023 Refill [facility] MEDICINE [address] [place] [id number] Toñito Caraballo FNP Social History Tobacco Use [...] documented as of this encounter Care Teams Cash Applications Specialist Relationship Specialty Start Date End Date qIra Nelson MD [address] [place] [address] PCP - General Family Medicine 12/05/16 04/08/24 Johnny Casanova PharmD [address] [place] [address] Pharmacist Internal Medicine 09/26/22 Toñito Caraballo FNP [address] [place] [address] Nurse Practitioner Family Medicine 08/08/23 documented as of this encounter
--- OUTSIDE RECORDS SUMMARY | 2025-05-26 15:20 | XMS_ITS | Encounter Summary ---
Author Organization [employer] Address [address] [facility] [address] [place] [address] Care Team Providers Care Automotive Technology Instructor Name Role Phone Iqra Nelson MD Primary Care Provider + Johnny Casanova PharmD Unavailable [phone] Toñito Caraballo GAS DISTRIBUTION AND EMERGENCY CLERK Unavailable Unavailable Encounter Details Date Type Department Care Team ([facility] st Contact Info) Description 03/08/2023 Abstract [facility] MEDICINE [address] [place] [address] Iqra Nelson MD [address] [place] [address] Social History Tobacco Use Types Packs/Day Years [...] AM EDT documented as of this encounter Functional Status * Over the past 2 weeks, how often have you been bothered by any of the following problems? Question Answer Date of Assessment Author Patient Health Questionnaire -2 Score 2 03/08/2023 11:23 AM EDT Vaughn Wise MA * If you checked off any problems on this questionnaire so far, Question Answer Date of Assessment Author How difficult have these problems made it for you to do your work, take care of things at home, or get along with other people? Very difficult 03/08/2023 11:23 AM Vaughn Horan MA * Over the past 2 weeks, how often have you been bothered by any of the following problems? Question Answer Date of Assessment Author Little interest or pleasure in doing things Several days 03/08/2023 11:23 AM Selena Horan MA Feeling down, depressed, or hopeless Several days 03/08/2023 11:23 AM Vaughn Horan MA Trouble falling or staying asleep, or sleeping too much Nearly every day 03/08/2023 11:23 AM Vaughn Horan MA Feeling tired or having little energy Nearly every day 03/08/2023 11:23 AM Vaughn Horan MA Poor appetite or overeating Several days 03/08/2023 11:23 AM Vaughn Horan MA Feeling bad about yourself - or that you are a failure or have let yourself or your family down Several days 03/08/2023 11:23 AM Vaughn Horan MA Trouble concentrating on things, such as reading the newspaper or watching television Nearly every day 03/08/2023 11:23 AM Vaughn Horan MA Moving or speaking so slowly that other people could have noticed? Or the opposite - being so fidgety or restless that you have been moving around a lot more than usual. Several days 03/08/2023 11:23 AM Vaughn Horan MA Thoughts that you would be better off or hurting yourself in some way Not at all 03/08/2023 11:23 AM Escobar Horan MA Patient Health Questionnaire-9 Score 14 03/08/2023 11:23 AM Tari Horan MA documented as of this encounter Plan of Treatment Not on file documented as of this encounter Goals Goal Patient Goal Type Associated Problems Recent Progress Patient-Stated? Author Blood Pressure < 150/90 Blood Pressure 155/76(04/12/2 024 9:13 AM EDT) No Johnny Casanova, PharmLuis Amrando Record your blood pressure once per day Blood Pressure No Johnny Casanova PharmD documented as of this encounter Procedures Procedure Name Priority Date/Time Associated Diagnosis Comments COLONOSCOPY Routine 03/04/2018 8:58 AM EDT documented in this encounter Results * Hm Colonoscopy (03/04/2018 8:58 AM EDT) [...] documented as of this encounter Care Teams Automotive Technology Instructor Relationship Specialty Start Date End Date Iqra Nelson MD [address] [place] [address] PCP - General Family Medicine 12/05/16 04/08/24 Johnny Casanova, Ti [address] [place] [id number] Pharmacist Internal Medicine 09/26/22 Toñito Caraballo FNP [address] [place] [address] Nurse Practitioner Family Medicine 08/08/23 documented as of this encounter
--- OUTSIDE RECORDS SUMMARY | 2025-05-26 15:20 | XMS_ITS | Encounter Summary ---
Author Organization [employer] Address [address] [facility] [address]t [place] [address] Care Team Providers Care Agency Cashier Name Role Phone Iqra Nelson MD Primary Care Provider + Johnny Casanova PharmD Unavailable [phone] Toñito Caraballo Unavailable Unavailable Reason for Visit * Reason Comments Med Refill Encounter Details Date Type Department Care Team (Late st Contact Info) Description 07/20/2023 Refill [facility] MEDICINE [address] [place] [address] Toñito Caraballo FNP Social History Tobacco Use [...] documented as of this encounter Care Teams Agency Cashier Relationship Specialty Start Date End Date Iqra Nelson MD [address] [place] [address] PCP - General Family Medicine 12/05/16 04/08/24 Johnny Casanova PharmD [address] [place] [address] Pharmacist Internal Medicine 09/26/22 Toñito Caraballo FNP [address] [place] [address] Nurse Practitioner Family Medicine 08/08/23 documented as of this encounter
--- OUTSIDE RECORDS SUMMARY | 2025-05-26 15:20 | XMS_ITS | Encounter Summary ---
Author Organization [employer] Address [address] [facility] [address] [place] [address] Care Team Providers Care Bike Technician Name Role Phone Johnny Casanova PharmD Unavailable [phone] Toñito Caraballo CROSS CUT SAWYER Unavailable Unavailable Encounter Details Date Type Department Care Team ([facility] Contact Info) Description 04/16/2025 Results Follow-Up [facility] MEDICINE [address] [place] [address] qIra Nelson MD [address] [place] [address] Gamma Glutamyl Transferase (GGT), Ferritin, Alpha-Fetoprotein, Tumor Marker, Additional followed-up results: 3 Social History Tobacco Use Types Packs/Day Years [...] AM EDT documented as of this encounter Miscellaneous Notes * Result Encounter Note - Iqra Nelson MD - 04/22/2025 2:09 PM EDT Labs ordered by GI and the workup for elevated LFTs. GI to follow-up, I will follow-up with patientat next appointment with me * Result Encounter Note - Iqra Nelson MD - 04/16/2025 9:22 AM EDT Labs ordered by GI, they will fu, I will fu w her at next appt documented in this encounter Plan of Treatment Not on [...] documented as of this encounter Care Teams Bike Technician Relationship Specialty Start Date End Date Johnny Casanova PharmD [address] [place] [address] Pharmacist Internal Medicine 09/26/22 Toñito Caraballo FNP [address] [place] [address] Nurse Practitioner Family Medicine 08/08/23 documented as of this encounter
--- OUTSIDE RECORDS SUMMARY | 2025-05-26 15:20 | XMS_ITS | Clinical Summary ---
Author Organization [employer] Address [address] [facility] 7t [place] [address] Care Team Providers Care Office Machine Servicer Apprentice Name Role Phone Johnny Casanova PharmD Unavailable [phone] Toñito Caraballo OUTSIDE ENERGY SALES REPRESENTATIVES Unavailable Unavailable Allergies Active Allergy Reactions Criticality [...] diets. She wants a referral to the firesetter. Discussed re weight reduction options including exercise, life style modifications, diet, referral to retail presentation specialist. Discussed re lower calorie intake, increase [...] retiring, so any issues or concerns, contact [facility]. All her questions were answered and [...] EST): Continue estrace cream and fu with LABORATORY CUREMAN. Refill sent to pharmacy. Assessment & Plan (10/09/2022 2:44 PM EST): Most likely secondary to atrophic vaginitis. -use estrogen cream daily x2 weeks and then 3 times per week. Pneumonia due to COVID-19 virus 08/24/2022 Polyp of cervix 08/24/2022 Assessment & Plan (03/26/2023 2:56 PM EDT): s/p resection by LABORATORY CUREMAN, more than a year ago, last PAP was normal refer to LABORATORY CUREMAN second opinion due to persistent dyspareunia Postcoital bleeding 08/24/2022 Assessment & Plan (03/26/2023 3:04 PM EDT): See previous issue and refer to LABORATORY CUREMAN Pruritus 08/24/2022 Right upper quadrant pain 08/24/2022 [...] q2wk + albuterol PRN and FU w/ visual merchandising associate Decline flue and Covid IZ today, advised [...] Encounters Date Type Department Care Team Description 04/16/2025 Results Follow-Up [facility] [address] [place] [address] Iqra Nelson MD Gamma Glutamyl Transferase (GGT), Ferritin, Alpha-Fetoprotein, Tumor Marker, Additional followed-up results: 3 04/14/2025 Orders Only GENERIC EXTERNAL DATA DEPARTMENT Provider, Generic External Data 03/05/2025 Orders Only [facility] External Provider, [facility] from Last 3 Months Immunizations Immunization Administration Dates Next Due Chi Covid-19 Vaccine 12+ 09/19/2021,03/14/20 21,02/17/2021 Social History [...] 75 12/28/2023 9:13 AM EDT Temperature 36.7 C (98.1 F) 12/28/2023 9:13 AM EDT Respiratory Rate 18 12/28/2023 9:13 AM EDT [...] FOBT 1960 HIV Screening 1960 Sigmoidoscopy 1960 Disability Screening 1960 Alcohol/Substance Use Screening 1972 Hepatitis C [...] Bitewings 10/13/2023 10/12/2022 SDOH Screening 12/12/2023 12/11/2022 Depression Monitoring 09/24/2024 03/24/2024, 024 Tobacco Screening 10/22/2024 10/22/2023 COVID-19 Vaccine ( season) 2025 09/19/2021, 03/14/2021, 02/17/2021 Influenza Vaccine (#1) 2025 Dental X-Ray: Full Mouth 10/13/2025 10/12/2022 Pap [...] patient's age to complete this topic Meningococcal B Vaccine Aged Out No l onger eligible based on patient's age to complete [...] Procedure Name Priority Date/Time Associated Diagnosis Comments LIVER FIBROSIS, FIBROTEST ACTITEST PANEL Routine 04/14/2025 2:11 PM EDT ACTIN (SMOOTH MUSCLE) ANTIBODY (IGG) Routine 04/14/2025 2:11 PM EDT MITOCHONDRIAL ANTIBODY WITH REFLEX TO TITER Routine 04/14/2025 2:11 PM EDT ALPHA FETOPROTEIN, TUMOR MARKER Routine 04/14/2025 2:11 PM EDT FERRITIN Routine 04/14/2025 2:11 PM EDT GGT Routine 04/14/2025 2:11 PM EDT US ABDOMEN COMPLETE Routine 03/05/2025 1 2:00 PM EDT LIPID PANEL WITH REFLEX TO DIRECT LDL [...] Relevant to Health Maintenance Results * (ABNORMAL) Liver Fibrosis (HCV), FibroTest-ActiTest Panel (04/14/2025 2:11 PM EDT) Liver Fibrosis Score 0.18 [facility] Liver Fibrosis Stage F0 [facility] Liver Fibrosis Interpretation SEE NOTE [facility] Comment:no fibrosisFibro Ivon t Score (f) Metavir Score f>=0 and f<=0.21 : F0 (no fibrosis)f>0.21 and f<=0.27 : F0-F1 (no fibrosis)f>0.27 and f<=0.31 : F1 (minimal fibrosis)f>0.31 and f<=0.48 : F1-F2 (minimal fibrosis)f>0.48 and f<=0.58 : F2 (moderate fibrosis)f>0.58 and f<=0.72 : F3 (advanced fibrosis)f>0.72 and f<=0.74 : F3-F4 (advanced fibrosis)f>0.74 and f<=1.00 : F4 (severe fibrosis) Nec Inflam Act Score 0.11 [facility] Nec Inflam Act Grade A0 [facility] Nec Inflam Act Interpretation SEE NOTE [facility] Comment:no activityActiTest Score (a) Metavir Score a>=0 and a<=0.17 : A0 (no activity)a>0.17 and a<=0.29 : A0-A1 (no activity)a>0.29 and a<=0.36 : A1 (minimal activity)a>0.36 and a<=0.52 : A1-A2 (minimal activity)a>0.52 and a<=0.60 : A2 (significant activity)a>0.60 and a<=0.62 : A2-A3 (significant activity)a>0.62 and a<=1.00 : A3 (severe activity) VNC-Flbqx-4-Macroglo bulin 199 106 - 279 mg/dL [facility] FIB-Haptoglobin 167 43 - 212 mg/dL [facility] FIB-Apolipoprotein A1 183 101 - 198 mg/dL [facility] FIB-Total Bilirubin 0.4 0.2 - 1.2 mg/dL [facility] FIB-GGT 68(A) 3 - 65 U/L [facility] FIB-ALT 27 6 - 29 U/L [facility] Reference ID [id number] [facility] Footnote SEE NOTE [facility] Comment: The reliability of results is dependent on compliance withthe preanalytical and analytical conditions recommended byBio[employer]. The tests have to be deferred for: acutehemolysis, acute hepatitis, acute inflammation, extrahepatic cholestasis. The advice of a specialist should besought for interpretation in chronic hemolysis and Gilbert'ssyndrome. The test interpretation is not validated in livertransplant patients. Isolated extreme values of one of thecomponents should lead to caution in interpreting theresults. In case of discordance between a biopsy result ernesto test, it is recommended to seek the advice of aspecialist. The causes of these discordances could be due toa flaw of the test or to a flaw in the biopsy: i.e. a liverbiopsy has a 33% variability rate for one fibrosis stage.FibroTest is interpretable for chronic hepatitis B and C,alcoholic and non alcoholic steatosis. ActiTest isinterpretable for chronic hepatitis B and C.The performance characteristics have been determined by[facility]. Ithas not been cleared or approved by the U.S. Food and DrugAdministration. Performance characteristics refer to theanalytical performance of the test.[employer], the associated logo, [employer] and all associated [employer] tesfaye are theregistered trademarks of [employer]. All third partymarks - (R) and (TM) - are the property of their respectiveowners. (C) [id number] [employer]. Allrights reserved.THIS TEST WAS PERFORMED AT:[employer] [id number] [place] [address]TSYWMRAMAKRISHNA ECHAVARRIA MD,PHD,JOSÉ ANTONIO 04/14/2025 2:11 PM EDT 04/14/2025 2:11 PM EDT us Generic External Data Provider LAB BLOOD ORDERAB LES Final Result [facility] [address] [place] [phone] * Actin (Smooth Muscle) Antibody (IgG) (04/14/2025 2:11 PM EDT) Smooth Muscle Antibody <20 <20 U [facility] Comment:Reference Range: <20 U: Negative>or=20 U: PositiveAntibodies recognizing actin are the main componentof smooth muscle antibodies associated with auto- immune liver disease. Actin antibodies are found inapproximately 75% of patients with autoimmunehepatitis (AIH) type 1, approximately 65% of patientswith autoimmune cholangitis, approximately 30% ofpatients with primary biliary cirrhosis andapproximately 2% of healthy controls. High values areclosely correlated with AIH type 1.THIS TEST WAS PERFORMED AT:[employer] [id number] [place] [address]IKMFOEWMONIKA BRITTON MD,PHD 04/14/2025 2:11 PM EDT 04/14/2025 2:11 PM EDT Generic External Data Provider LAB BLOOD ORDERAB LES Final Result Performing Organization Address [facility] Co de Phone Number [facility] [address] [place] [phone] * Alpha-Fetoprotein, Tumor Marker (04/14/2025 2:11 PM EDT) Pathologist [facility] Alpha Fetoprotein 2.0 ng/mL [facility] Comment:Reference Range: <6. 1The use of AFP as a tumor marker in females is not recommended.This test was performed using the Ja Coulterchemiluminescent method. Values obtained fromdifferent assay methods cannot be usedinterchangeably. AFP levels, regardless ofvalue, should not be interpreted as absoluteevidence of the presence or absence of disease.THIS TEST WAS PERFORMED AT:[employer] [place] [phone] HARRISON MD 04/14/2025 2:11 PM EDT 04/14/2025 2:11 PM EDT Generic External Data Provider LAB BLOOD ORDERAB LES Final Result Performing Organization Address [facility] Co de Phone Number [facility] [address] [place] [phone] * Mitochondrial Antibody with Reflex to Titer (04/14/2025 2:11 PM EDT) Mitochondrial Antibodies NEGATIVE NEGATIVE [facility] Comment:THIS TEST WAS PERFOR MED AT:[employer] [place] [phone] HARRISON MD Mitochondrial Ab Titer TNP [facility] 04/14/2025 2:1 1 PM EDT 04/14/2025 2:11 PM EDT us Generic External Data Provider LAB BLOOD ORDERAB LES Final Result Performing Organization Address [facility] Co de Phone Number [facility] [address] [place] [phone] * (ABNORMAL) Gamma Glutamyl Transferase (GGT) (04/14/2025 2:11 PM EDT) Gamma Glutamyl Transpeptidase 87(H) 7 - 33 U/L [facility] 04/14/2025 2:11 PM EDT 04/14/2025 2:11 PM EDT us Generic External Data Provider LAB BLOOD ORDERAB LES Final Result Performing Organization Address [facility] de Phone Number [facility] [address] [place] [phone] * Ferritin (04/14/2025 2:11 PM EDT) Ferritin 106 10 - 250 ng/mL [facility] 04/14/2025 2:11 PM EDT 04/14/2025 2:11 PM EDT Generic External Data Provider LAB BLOOD ORDERAB LES Final Result Performing Organization Address [facility] de Phone Number [facility] [address] [place] [phone] * US Abdomen Complete (03/05/2025 12:00 PM EDT) Anatomical Region Laterality Modality Abdomen Ultrasound 03/05/2025 12:0 0 PM EDT Narrative 03/05/2025 12:01 PM EDT [address] [address] Ultrasound Report Signed Patient: Yoselin Rodríguez MR#: [id number] : 1960 Acct:[id number] Age/Sex: 64 / F ADM Date: 03/05/25 Loc: HO.US Attending Dr: Reba BOOTHE Ordering Physician: Reba Shah Date of Service: 03/05/25 Procedure(s): US abdomen complete Accession Number(s): [id number] cc: Reba Shah; Iqra Nelson MD CLINICAL HISTORY: R74.01 - Elevation of levels of liver transaminase levels US abdomen complete with color Doppler Comparison: None Findings: The visualized pancreas, aorta, and inferior vena cava are unremarkable. Liver normal size and mildly echogenic. Right lobe 12.1 cm length. No focal hepatic masses. Common duct 3.0 mm diameter. Post cholecystectomy. No sonographic Machuca sign. Main portal vein antegrade. Right kidney normal size, 9.3 cm in length. Normal cortical width and echotexture. No solid or cystic renal masses. No nephrolithiasis. No hydronephrosis. Left kidney normal, 9.0 cm in length. Normal cortical width and echotexture. No solid or cystic renal masses. No nephrolithiasis. No hydronephrosis. Spleen measures 11.2 cm. No splenic masses. No ascites. No lymphadenopathy. Impression: 1. Post cholecystectomy. 2. Mildly echogenic liver reflecting mild diffuse hepatic steatosis or diffuse hepatocellular disease. No focal hepatic lesions. This document has been electronically signed by: Tyler Chavez MD on 03/05/2025 12:00:10 Dictated By: Tyler Chavez MD Signed By: <Electronically signed by Tyler Chavez MD in OV> 03/05/25 1201 DD/ 1200 TD/TT: 03/05/25 1200 Administrative Services Officer: Procedure Note Donotuseinterpreter, Image - 03/05/[address] [address] Ultrasound Report Signed Patient: Yoselin Rodríguez EMR#: [id number] : 1960cct:[id number] Age/Sex: 64 / FADM Date: 03/05/25 Loc: HO.US Attending Dr: Reba BOOTHE Ordering Physician: Reba Shah Date of Service: 03/05/25 Procedure(s): US abdomen complete Accession Number(s): [id number] cc: Reba Shah-C; Iqra Nelson MD CLINICAL HISTORY: R74.01 - Elevation of levels of liver transaminaselevels US abdomen complete with color Doppler Comparison: None Findings: The visualized pancreas, aorta, and inferior vena cava are unremarkable. Liver normal size and mildly echogenic. Right lobe 12.1 cm length. No focal hepatic masses. Common duct 3.0 mm diameter. Post cholecystectomy. No sonographic Machuca sign. Main portal vein antegrade. Right kidney normal size, 9.3 cm in length. Normal cortical width and echotexture. No solid or cystic renal masses. No nephrolithiasis. No hydronephrosis. Left kidney normal, 9.0 cm in length. Normal cortical width and echotexture. No solid or cystic renal masses. No nephrolithiasis. No hydronephrosis. Spleen measures 11.2 cm. No splenic masses. No ascites. No lymphadenopathy. Impression: 1. Post cholecystectomy. 2. Mildly echogenic liver reflecting mild diffuse hepatic steatosis or diffuse hepatocellular disease. No focal hepatic lesions. This document has been electronically signed by: Tyler Chavez MD on 03/05/2025 12:00:10 Dictated By: Tyler Chavez MD Signed By: <Electronically signed by Tyler Chavez MD in OV> 03/05/25 1201 DD/ 1200 TD/TT: 03/05/25 1200 Administrative Services Officer: us [facility] External Provider IMG US PROCEDURES Final Result * Lipid Panel with Reflex to Direct LDL (11/08/2023 12:00 AM EST) Triglycerides 128 <150 mg/dL [facility] Comment:Desirable Triglyceri de: less than 150 mg/dLBorderline High Triglyceride 150-199 mg/dLHigh Triglyceride: 200-499 mg/dLVery High Triglyceride: greater than or equal to 5OO mg/dL Cholesterol 169 <200 mg/dL [facility] Comment:Desirable Cholestero l: less than 200 mg/dLBorderline High Cholesterol: 200-239 mg/dLHigh Cholesterol: greater than 239 mg/dL LDL Cholesterol Calculated 82 <100 mg/dL [facility] Comment:Desirable LDL: less than 100 mg/dLNear Optimal/Above Optimal LDL: 110- 129 mg/dLBorderline High LDL: 130-159 mg/dLHigh LDL: 160-189 mg/dLVery High LDL: greater than or equal to 190 mg/dL HDL Cholesterol 62 >40 mg/dL [facility] Comment:Desirable HDL: great er than 40 mg/dL Note: This HDL assay may give artificially low results in patients with liver disease. Blood 11/08/2023 11/08/2023 us Iqra Nelson MD LAB BLOOD ORDERABLES Fin al Result [facility] [address] [place] [phone] * HPV mRNA E6/E7 w/Reflex to HPV Genotypes 16, 18/45 (05/31/2023 1:12 PM EDT) HPV nRNA E6/E7 Not Detected Not Detected [facility] Comment:Methodology: Transcr iption-Mediated AmplificationThis assay detects E6/E7 viral messenger RNA (mRNA) from 14high-risk HPV types (16,18,31,33,35,39,45,51,52,56,58,59,66,68).Cervical sources are required for HPV testing.If a vaginal source from a patient who has had atotal hysterectomy with removal of cervix wassubmitted, please contact the testing laboratoryfor alternative testing options.For additional information, please refer tohttp://education.[employer]/faq/HIE296t0(This link if provided for information/educational purposes only.)THIS TEST WAS PERFORMED AT:[employer] [place] [phone] HARRISON MD HPV mRNA E6/E7 TNP [facility] HPV 16 RNA [facility] HPV 18/45 RNA [facility] 05/31/2023 1:12 PM EDT 06/01/2023 9:00 AM EDT us [facility] External Provider LAB CYT OLOGY ORDERABLES Final Result [facility] [address] [place] [phone] * Pap Smear (05/31/2023 1:12 PM EDT) 05/31/2023 1:12 PM EDT 06/01/2023 9:00 AM EDT Narrative [facility] - 06/12/2023 1:57 PM EDT ----- ------- Name: Yoselin Rodríguez Age/Sex: 62/F : 1960 Unit#: [id number] Attend Dr: Ale Francisco CNM Re05/31/23 Status: DEP REF Location: [facility] Disch: ----- ------- SPEC : [id number] RECD: 06/01/23 STATUS: BLAYNE BLAIR NUM: [id number] AGATHA: 05/31/23-[address]: Ale Francisco CNM ENTERED: 06/01/23-1101 SP TYPE: Pap Smr OTHR DR: Iqra Nelson MD ORDERED: Pap Smear Interpretation Satisfactory for evaluation. Negative for intraepithelial lesion or malignancy. Fungal organisms consistent with Lakeshia species. HPV mRNA E6/E7: NOT DETECTED This assay detects E6/E7 viral messenger RNA (mRNA) from 14 high-risk HPV types (16, 18, 31, 33, 35, 39, 45, 51, 52, 56, 58, 59, 66, 68) HPV testing performed by [employer], [place], [place]. See reference laboratory portion of the EMR for entire report. Clinical Information LMP: No menses Previous PAP test: 07/19/21, abnormal Other history: +HPV, personal history of other infectious and parasitic diseases Material Received ThinPrep-Cervical Copies To: Iqra Nelson MD [address] [place] [address] Lee [address] [place] [phone] ----- ------- Signed (signature on file) Yajaira Adams Ekta 06/12/23 1357 ----- ------- END OF REPORT [facility] External Provider LAB CYT OLOGY ORDERABLES Final Result [facility] [address] [place] [address] [phone] * Mammography Report 1 (04/21/2021 1:15 [...] Most Recently Relevant to Health Maintenance Insurance [facility] ONE CARE < 65 [facility] Care Teams Office Machine Servicer Apprentice Relationship Specialty Start Date End Date Johnny Casanova, RachelD [address] [place] [address] Pharmacist Internal Medicine 09/26/22 Toñito Caraballo FNP [address] [place] [address] Nurse Practitioner Family Medicine 08/08/23
--- OUTSIDE RECORDS SUMMARY | 2025-05-26 15:20 | XMS_ITS | Encounter Summary ---
Author Organization [employer] Address [address] [facility] 7t [place] [address] Care Team Providers Care C Developer Name Role Phone Iqra Nelson MD Primary Care Provider + Johnny Casanova PharmD Unavailable [phone] Toñito Caraballo CONTACT CENTER AGENT Unavailable Unavailable Encounter Details Date Type Department Care Team ([facility] st Contact Info) Description 10/10/2022 Orders Only [facility] [address] [place], [place] [phone] Iqra Nelson MD [address] [place], [place] [phone] Vitamin D deficiency (Primary Dx); Senile osteoporosis [...] documented as of this encounter Care Teams C Developer Relationship Specialty Start Date End Date Iqra Nelson MD [address] [place] [phone] PCP - General Family Medicine 12/05/16 04/08/24 Johnny Casanova, Ti [address] [place] [phone] Pharmacist Internal Medicine 09/26/22 Toñito Caraballo FNP [address] [place] [phone] Nurse Practitioner Family Medicine 08/08/23 documented as of this encounter
--- OUTSIDE RECORDS SUMMARY | 2025-05-26 15:20 | XMS_ITS | Encounter Summary ---
Author Organization [employer] Address [address] [facility] 7t [place] [address] Care Team Providers Care Wool Tamper Name Role Phone Iqra Nelson MD Primary Care Provider + Johnny Casanova PharmD Unavailable [phone] Toñito Caraballo Unavailable Unavailable Reason for Visit * Reason Comments Med Refill Encounter Details Date Type Department Care Team (Late st Contact Info) Description 12/28/[address] [facility] [address] [place] [address] Toñito Caraballo FNP Major depressive disorder, recurrent, [...] Diagnoses Diagnosis Major depressive disorder, recurrent, moderate ([facility]) Major depressive disorder, recurrent episode, moderate documented in this encounter Additional Health Concerns Assessment Noted Time PHQ-9 Depression Total Score: 16 023 1:04 PM EDT documented as of this encounter Care Teams Wool Tamper Relationship Specialty Start Date End Date Iqra Nelson MD [address] [place] [phone] PCP - General Family Medicine 12/05/16 04/08/24 Johnny Casanova, Ti [address] [place] [phone] Pharmacist Internal Medicine 09/26/22 Toñito Caraballo FNP [address] [place] [phone] Nurse Practitioner Family Medicine 08/08/23 documented as of this encounter
--- OUTSIDE RECORDS SUMMARY | 2025-05-26 15:20 | XMS_ITS | Encounter Summary ---
Author Organization [employer] Address [address] [facility] 7t [place] [address] Care Team Providers Care Hotel Breakfast Attendant Name Role Phone Iqra Nelson MD Primary Care Provider + Johnny Casanova PharmD Unavailable [phone] Toñito Caraballo Unavailable Unavailable Reason for Visit * Reason Comments Med Refill Encounter Details Date Type Department Care Team (Late st Contact Info) Description 02/26/2023 Refill [facility] [address] [place] [address] Toñito Caraballo FNP Major depressive disorder, recurrent, [...] Diagnosis Major depressive disorder, recurrent, moderate ([facility]) Major depressive disorder, recurrent episode, moderate documented in this encounter Additional Health Concerns Assessment Noted Time PHQ-9 Depression Total Score: 10 023 3:45 PM EDT documented as of this encounter Care Teams Hotel Breakfast Attendant Relationship Specialty Start Date End Date Iqra Nelson MD [address] [place] [phone] PCP - General Family Medicine 12/05/16 04/08/24 Johnny Casanova, RachelD [address] [place] [phone] Pharmacist Internal Medicine 09/26/22 Toñito Caraballo FNP [address] [place] [phone] Nurse Practitioner Family Medicine 08/08/23 documented as of this encounter
--- OUTSIDE RECORDS SUMMARY | 2025-05-26 15:20 | XMS_ITS | Encounter Summary ---
Author Organization [employer] Address [address] [facility] 7t [place] [address] Care Team Providers Care Fitter Helper Name Role Phone Iqra Nelson MD Primary Care Provider + Johnny Casanova PharmD Unavailable [phone] Toñito Caraballo Unavailable Unavailable Reason for Visit * Reason Onset Date Comments Med Refill Appointment 10/11/2023 LVM-Re: her apt for today as [id number] @2pm Encounter Details Date Type Department Care Team (Late st Contact Info) Description 10/11/2023 Refill [facility] [address] [place] [address] Toñito Caraballo FNP Social History Tobacco Use [...] documented as of this encounter Care Teams Fitter Helper Relationship Specialty Start Date End Date Iqra Nelson MD [address] [place] [phone] PCP - General Family Medicine 12/05/16 04/08/24 Johnny Casanova PharmD [address] [place] [phone] Pharmacist Internal Medicine 09/26/22 Toñito Caraballo FNP [address] [place] [phone] Nurse Practitioner Family Medicine 08/08/23 documented as of this encounter
--- OUTSIDE RECORDS SUMMARY | 2025-05-26 15:20 | XMS_ITS | Encounter Summary ---
Author Organization [employer] Address [address] [facility] 7t [place] [address] Care Team Providers Care Front Maker Lockstitch Name Role Phone Iqra Nelson MD Primary Care Provider + Johnny Casanova PharmD Unavailable [phone] Toñito Caraballo MILD DISABILITIES TEACHER Unavailable Unavailable Encounter Details Date Type Department Care Team ([facility] Contact Info) Description 09/26/2022 Orders Only [facility] MEDICINE [address] [place] [address] Johnny Casanova, PharmD [address] [place] [address] Social History Tobacco Use Types Packs/Day Years [...] documented as of this encounter Care Teams Front Maker Lockstitch Relationship Specialty Start Date End Date Iqra Nelson MD [address] [place] [address] PCP - General Family Medicine 12/05/16 04/08/24 Johnny Casanova, PharmD [address] [place] [address] Pharmacist Internal Medicine 09/26/22 Toñito Caraballo FNP [address] [place] [address] Nurse Practitioner Family Medicine 08/08/23 documented as of this encounter
--- OUTSIDE RECORDS SUMMARY | 2025-05-26 15:20 | XMS_ITS | Encounter Summary ---
Author Organization [employer] Address 75 [facility] 7t [place] [address] Care Team Providers Care Stand Up Forklift Operator Name Role Phone Iqra [place] MD Primary Care Provider + Johnny Casanova PharmD Unavailable [phone] Toñito Caraballo Unavailable Unavailable Reason for Visit * Reason Comments Med Refill Encounter Details Date Type Department Care Team ([facility] st Contact Info) Description 02/21/2023 Refill [facility] MEDICINE [address] [place] [phone] Toñito Caraballo FNP Social History Tobacco Use [...] documented as of this encounter Care Teams Stand Up Forklift Operator Relationship Specialty Start Date End Date Iqra Nelson MD [address] [place] [address] PCP - General Family Medicine 12/05/16 04/08/24 Johnny Casanova PharmD [address] [place] [address] Pharmacist Internal Medicine 09/26/22 Toñito Caraballo FNP [address] [place] [address] Nurse Practitioner Family Medicine 08/08/23 documented as of this encounter
--- OUTSIDE RECORDS SUMMARY | 2025-05-26 15:20 | XMS_ITS | Clinical Summary ---
Author Organization [facility] Address [address] [place] [phone] Phone Care Team Providers Care Records And Tape Recordings Engineer Name Role Phone Iqra Nelson MD [...] file Medical Devices Not on file Insurance [facility] MEDICARE PART A & B [place] A & B [place] & [place] & [facility] [place] & B Care Teams Records And Tape Recordings Engineer Relationship Specialty Start Date End Date Iqra Nelson MD [address] [place] [address] [address] [place] [address] PCP - General Internal Medicine 10/19/20 Additional Source Comments The information contained in this document represents components of the legal health record. It is not the complete legal health record.[facility]
== END 2025-05-26 14:06 | disposition home or self-care (01) ==
LOC: HO.HGI 13:03
PROVIDERS: PCP Internal Medicine; Visit Provider Nurse Practitioner
DX: K21.9 Gastro-esophageal reflux disease without esophagitis (principal); R74.01 Elevation of levels of liver transaminase levels; K58.2 Mixed irritable bowel syndrome; R14.0 Abdominal distension (gaseous); R63.5 Abnormal weight gain; R11.2 Nausea with vomiting, unspecified
CPT/HCPCS: 99213

== ENCOUNTER → 2025-05-26 14:22 | Outpatient (BNV) | payer OTHER, SELFPAY | PROVIDERS: PCP Internal Medicine; Visit Provider Radiology Diagnostic Radiology | DX: R14.0 Abdominal distension (gaseous) (principal); Z90.49 Acquired absence of other specified parts of digestive tract | CPT/HCPCS: 74021 ==

== ENCOUNTER 2025-06-15 10:02 | Outpatient (REF) | payer OTHER, SELFPAY ==
[2025-06-15 10:24] LABS: MANUAL DIFF FLAG NO
[2025-06-15 10:54] LABS: Hematocrit 36.5 % (37.0-47.0); Hemoglobin 12.1 g/dl (12.0-16.0); Imm Gran Abs Auto 0.02 X10*3/uL (0.00-0.03); Imm Gran Pct Auto 0.4 % (0.0-0.4); Lymphocytes Absolute Auto 1.4 X10*3/uL (1.2-4.9); Mean Corpuscular HGB Conc 33.2 g/dl (31.0-35.0); Mean Corpuscular Hemoglobin 27.6 pg (27.0-33.0); Mean Corpuscular Volume 83.1 fL (80.0-98.0); NRBC Abs Auto 0.000 X10*3/uL (0.0-0.012); NRBC Pct Auto 0.0 /100WBC (0.0-0.2); Platelet Count 228 X10*3/uL (160-400); Red Blood Count 4.39 X10*6/uL (4.20-5.50); White Blood Count 4.6 X10*3/uL (4.8-10.8)
--- OUTSIDE RECORDS SUMMARY | 2025-06-15 11:09 | XMS_ITS | Encounter Summary ---
Author Organization [employer] Address 75 [facility] 7t [place] [address] Care Team Providers Care Satellite Installation Technician Name Role Phone Johnny Casanova PharmD Unavailable [phone] Toñito Caraballo SAWMILL HAND Unavailable Unavailable Encounter Details Date Type Department Care Team ([facility] Contact Info) Description 04/16/2025 Results Follow-Up [facility] MEDICINE [address] [place] [address] Iqra [place] MD [address] [place] [address] Gamma Glutamyl Transferase (GGT), Ferritin, Alpha-Fetoprotein, Tumor [...] documented as of this encounter Care Teams Satellite Installation Technician Relationship Specialty Start Date End Date Johnny Casanova PharmD [address] [place] [address] Pharmacist Internal Medicine 09/26/22 Toñito Caraballo FNP [address] [place] [address] Nurse Practitioner Family Medicine 08/08/23 documented as of this encounter
--- OUTSIDE RECORDS SUMMARY | 2025-06-15 11:09 | XMS_ITS | Clinical Summary ---
Author Organization [employer] Address 75 [facility] 7t [place] [address] Care Team Providers Care Chief Recordist Name Role Phone Johnny Casanova PharmD Unavailable [phone] Toñito Caraballo BUSINESS ADMINISTRATION TEACHER Unavailable Unavailable Allergies Active Allergy Reactions Criticality [...] mouth at bedtime as needed Active albuterol (2.5 MG/3ML) 0.083% nebulizer solutionIndicati [...] diets. She wants a referral to the logistics and planning manager. Discussed re weight reduction options including exercise, life style modifications, diet, referral to health informatics specialist. Discussed re lower calorie intake, increase [...] AM EDT): Controlled. Continue Imitrex Severe obesity (CMS/HCC) 05/03/2023 Assessment & Plan (10/22/2023 11:14 AM [...] r ecurrent episode, moderate with anxious distress (CMS/HCC) 09/04/2022 Assessment & Plan (03/24/2024 10:29 AM [...] retiring, so any issues or concerns, contact [facility]. All her questions were answered and I [...] EST): Continue estrace cream and fu with TEXTILE CONVERSION MANAGER. Refill sent to pharmacy. Assessment & Plan (10/09/2022 2:44 PM EST): Most likely secondary to atrophic vaginitis. -use estrogen cream daily x2 weeks and then 3 times per week. Pneumonia due to COVID-19 virus 08/24/2022 Polyp of cervix 08/24/2022 Assessment & Plan (03/26/2023 2:56 PM EDT): s/p resection by TEXTILE CONVERSION MANAGER, more than a year ago, last PAP was normal refer to TEXTILE CONVERSION MANAGER second opinion due to persistent dyspareunia Postcoital bleeding 08/24/2022 Assessment & Plan (03/26/2023 3:04 PM EDT): See previous issue and refer to TEXTILE CONVERSION MANAGER Pruritus 08/24/2022 Right upper quadrant pain 08/24/2022 [...] q2wk + albuterol PRN and FU w/ customer technical services manager Decline flue and Covid IZ today, advised [...] activity. Check home BP BIW and prn CP/GUSTAFOSN/DANIEL Non smoking patient. Foot pain 12/07/2016 Migraine without aura, not refractory 12/07/2016 Mild intermittent asthma 12/07/2016 Resolved Problems Problem Noted Date Diagnosed Date Resolved Date Pulmonary embolism 11/27/2018 4 Encounters Date Type Department Care Team Description 04/16/2025 Results Follow-Up [facility] MEDICINE [address] [place] [address] Iqra Nelson MD Gamma Glutamyl Transferase (GGT), Ferritin, Alpha-Fetoprotein, Tumor Marker, Additional followed-up results: 3 04/14/2025 Orders Only GENERIC EXTERNAL DATA DEPARTMENT Provider, Generic External Data from Last 3 Months Immunizations Immunization Administration Dates Next Due Moderna Covid-19 Vaccine [...] EDT GGT Routine 04/14/2025 2:11 PM EDT LIPID PANEL WITH REFLEX TO [...] 2:11 PM EDT) Liver Fibrosis Score 0.18 [facility] Liver Fibrosis Stage F0 [facility] Liver Fibrosis Interpretation SEE NOTE [facility] Comment:no fibrosisFibro Ivon t Score [...] (severe fibrosis) Nec Inflam Act Score 0.11 [facility] Nec Inflam Act Grade A0 [facility] Nec Inflam Act Interpretation SEE NOTE [facility] Comment:no activityActiTest Score (a) Metavir Score a>=0 and a<=0.17 : A0 (no activity)a>0.17 and a<=0.29 : A0-A1 (no activity)a>0.29 and a<=0.36 : A1 (minimal activity)a>0.36 and a<=0.52 : A1-A2 (minimal activity)a>0.52 and a<=0.60 : A2 (significant activity)a>0.60 and a<=0.62 : A2-A3 (significant activity)a>0.62 and a<=1.00 : A3 (severe activity) AWF-Dbkum-3-Macroglo bulin 199 106 - 279 mg/dL [facility] FIB-Haptoglobin 167 43 - 212 mg/dL [facility] FIB-Apolipoprotein A1 183 101 - 198 mg/dL [facility] FIB-Total Bilirubin 0.4 0.2 - 1.2 mg/dL [facility] FIB-GGT 68(A) 3 - 65 U/L [facility] FIB-ALT 27 6 - 29 U/L [facility] Reference ID [id number] [facility] Footnote SEE NOTE [facility] Comment: The reliability of results [...] and C.The performance characteristics have been determined by[facility]. Ithas not been cleared or approved by the U.S. Food and DrugAdministration. Performance characteristics refer to theanalytical performance of the test.[employer], [employer], the associated logo, [employer]omin[employer] and all associated [employer] tesfaye are theregistered trademarks of [employer]. All third partymarks - (R) and (TM) - are the property of their respectiveowners. (C) [id number] [employer]. Allrights reserved.THIS TEST WAS PERFORMED AT:[employer] [id number] [facility] [place] [address]WHNCVRAMAKRISHNA ECHAVARRIA MD,PHD,JOSÉ ANTONIO 04/14/2025 2:11 PM EDT 04/14/2025 2:11 PM EDT us Generic External Data Provider LAB BLOOD ORDERAB LES Final Result Performing Organization Address [facility]/ZIP Co de Phone Number [facility] [address] [place] [phone] * Actin (Smooth Muscle) Antibody (IgG) (04/14/2025 2:11 PM EDT) Smooth Muscle Antibody <20 <20 U [facility] Comment:Reference Range: <20 U: Negative>or=20 [...] with AIH type 1.THIS TEST WAS PERFORMED AT:[employer] [id number] [place] [address]WOHLFJXMONIKA BRITTON MD,PHD 04/14/2025 2:11 PM EDT 04/14/2025 2:11 PM EDT us Generic External Data Provider LAB BLOOD ORDERAB LES Final Result Performing Organization Address City/[facility]/ZIP Co de Phone Number [facility] [address] [place] [phone] * Alpha-Fetoprotein, Tumor Marker (04/14/2025 2:11 PM EDT) Pathologist [facility] Alpha Fetoprotein 2.0 ng/mL [facility] Comment:Reference Range: <6. 1The use of AFP as a tumor marker in females is not recommended.This test was performed using the Ja Coulterchemiluminescent method. Values obtained fromdifferent assay methods cannot be usedinterchangeably. AFP levels, regardless ofvalue, should not be interpreted as absoluteevidence of the presence or absence of disease.THIS TEST WAS PERFORMED AT:[employer] [address] [phone] HARRISON MD 04/14/2025 2:11 PM EDT 04/14/2025 2:11 PM EDT Generic External Data Provider LAB BLOOD ORDERAB LES Final Result Performing Organization Address City/[facility]/ZIP Co de Phone Number [facility] [address] [place] [phone] * Mitochondrial Antibody with Reflex to Titer (04/14/2025 2:11 PM EDT) [facility] Mitochondrial Antibodies NEGATIVE NEGATIVE [facility] Comment:THIS TEST WAS PERFOR MED AT:[employer] [address] [phone] HARRISON MD Mitochondrial Ab Titer TNP [facility] 04/14/2025 2:11 PM EDT 04/14/2025 2:11 PM EDT us Generic External Data Provider LAB BLOOD ORDERAB LES Final Result Performing Organization Address City/[facility]/ZIP Co de Phone Number [facility] [address] [place] [phone] * (ABNORMAL) Gamma Glutamyl Transferase (GGT) (04/14/2025 2:11 PM EDT) [facility] Gamma Glutamyl Transpeptidase 87(H) 7 - 33 U/L [facility] 04/14/2025 2:11 PM EDT 04/14/2025 2:11 PM EDT us Generic External Data Provider LAB BLOOD ORDERAB LES Final Result Performing Organization Address City/[facility]/ZIP Co de Phone Number [facility] [address] [place] [phone] * Ferritin (04/14/2025 2:11 PM EDT) Ferritin 106 10 - 250 ng/mL [facility] 04/14/2025 2:11 PM EDT 04/14/2025 2:11 PM EDT us Generic External Data Provider LAB BLOOD ORDERAB LES Final Result Performing Organization Address City/[facility] Co de Phone Number [facility] [address] [place] [phone] * Lipid Panel with Reflex to Direct LDL (11/08/2023 12:00 AM EST) Triglycerides 128 <150 mg/dL [facility] Comment:Desirable Triglyceri de: less than 150 mg/dLBorderline High Triglyceride 150-199 mg/dLHigh Triglyceride: 200-499 mg/dLVery High Triglyceride: greater than or equal to 5OO mg/dL Cholesterol 169 <200 mg/dL [facility] Comment:Desirable Cholestero l: less than 200 mg/dLBorderline High Cholesterol: 200-239 mg/dLHigh Cholesterol: greater than 239 mg/dL LDL Cholesterol Calculated 82 <100 mg/dL [facility] Comment:Desirable LDL: less than 100 mg/dLNear Optimal/Above Optimal LDL: 110- 129 mg/dLBorderline High LDL: 130-159 mg/dLHigh LDL: 160-189 mg/dLVery High LDL: greater than or equal to 190 mg/dL HDL Cholesterol 62 >40 mg/dL [facility] Comment:Desirable HDL: great er than 40 mg/dL Note: This HDL assay may give artificially low results in patients with liver disease. Blood 11/08/2023 11/08/2023 Iqra [place] MD LAB BLOOD ORDERABLES Fin al Result [facility] [address] [place] [phone] * HPV mRNA E6/E7 w/Reflex to HPV Genotypes 16, 18/45 (05/31/2023 1:12 PM EDT) HPV nRNA E6/E7 Not Detected Not Detected [facility] Comment:Methodology: Transcr iption-Mediated AmplificationThis assay detects E6/E7 viral messenger RNA (mRNA) from 14high-risk HPV types (16,18,31,33,35,39,45,51,52,56,58,59,66,68).Cervical sources are required for HPV testing.If a vaginal source from a patient who has had atotal hysterectomy with removal of cervix wassubmitted, please contact the testing laboratoryfor alternative testing options.For additional information, please refer [email or web address]/[email or web address](This link if provided for information/educational purposes only.)THIS TEST WAS PERFORMED AT:[address] [place] [phone] HARRISON MD HPV mRNA E6/E7 TNP [facility] HPV 16 RNA [facility] HPV 18/45 RNA [facility] 05/31/2023 1:12 PM EDT 06/01/2023 9:00 AM EDT [facility] External Provider LAB CYT OLOGY ORDERABLES Final Result [facility] [address] [place] [phone] * Pap Smear (05/31/2023 1:12 PM EDT) 05/31/2023 1:12 PM EDT 06/01/2023 9:00 AM EDT [facility] - 06/12/2023 1:57 PM EDT ----- ------- Name: MarcosYoselin Brody Age/Sex: 62/F : 1960 Unit#: [id number] Attend Dr: Ale Francisco CNM Re05/31/23 Status: [facility] Location: [facility] Disch: ----- ------- SPEC : [id number] RECD: 06/01/23 STATUS: BLAYNE BLAIR NUM: [id number] AGATHA: 05/31/23-[address] [facility] [address]: Ale Francisco [facility] ENTERED: 06/01/23-110 SP TYPE: Pap Smr OT DR: Iqra [place] MD ORDERED: Pap Smear Interpretation Satisfactory for evaluation. Negative for intraepithelial lesion or malignancy. Fungal organisms consistent with Lakeshia species. HPV mRNA E6/E7: NOT DETECTED This assay detects E6/E7 viral messenger RNA (mRNA) from 14 high-risk HPV types (16, 18, 31, 33, 35, 39, 45, 51, 52, 56, 58, 59, 66, 68) HPV testing performed by [employer], [place], [place]. See reference laboratory portion of the EMR for entire report. Clinical Information LMP: No menses Previous PAP test: 07/19/21, abnormal Other history: +HPV, personal history of other infectious and parasitic diseases Material Received ThinPrep-Cervical Copies To: Iqra [place] MD [address] [place] [address] [address] [place] [address] ----- ------- Signed (signature on file) Yajaira Adams Ekta 06/12/23 1357 ----- ------- END OF REPORT [facility] External Provider LAB [facility] ORDERABLES Final Result [facility] [address] [place] [phone] * Mammography Report 1 (04/21/2021 1:15 [...] Most Recently Relevant to Health Maintenance Insurance [facility] [address] [place] [address] Care Teams Chief Recordist Relationship Specialty Start Date End Date Johnny Casanova, PharmD [address] [place] [address] Pharmacist Internal Medicine 09/26/22 Toñito Caraballo FNP [address] [place] [address] Nurse Practitioner Family Medicine 08/08/23
--- OUTSIDE RECORDS SUMMARY | 2025-06-15 11:09 | XMS_ITS | Encounter Summary ---
Author Organization [employer] Address 75 [facility] 7t [place] [address] Care Team Providers Care Lead Dental Assistant Name Role Phone Iqra [place] MD Primary Care Provider + Johnny Casanova PharmD Unavailable [phone] Toñito Caraballo Unavailable Unavailable Reason for Visit * Reason Onset Date Comments Med Refill Appointment 10/11/2023 LVM-Re: her apt for today as [id number] @2pm Encounter Details Date Type Department Care Team (Late st Contact Info) Description 10/11/2023 Refill [facility] MEDICINE [address] [place] [address] Toñito Caraballo FNP Social History Tobacco Use [...] as of this encounter Care Teams Lead Dental Assistant Relationship Specialty Start Date End Date Iqra [place] MD [address] [place] [phone] PCP - General Family Medicine 12/05/16 04/08/24 Johnny Casanova PharmD [address] [place] [phone] Pharmacist Internal Medicine 09/26/22 Toñito Caraballo FNP [address] [place] [address] Nurse Practitioner Family Medicine 08/08/23 documented as of this encounter
--- OUTSIDE RECORDS SUMMARY | 2025-06-15 11:09 | XMS_ITS | Encounter Summary ---
Author Organization [employer] Address 75 [facility] 7t [place] [address] Care Team Providers Care Veneer Grader Name Role Phone Iqra [place] MD Primary Care Provider + Johnny Casanova PharmD Unavailable [phone] Toñito Caraballo Unavailable Unavailable Reason for Visit * Reason Comments Med Refill Encounter Details Date Type Department Care Team (Late st Contact Info) Description 07/20/2023 Refill [facility] MEDICINE [address] [place] [address] Toñito Caraballo FNP Social History Tobacco Use [...] documented as of this encounter Care Teams Veneer Grader Relationship Specialty Start Date End Date Iqra [place] MD [address] [place] [address] PCP - General Family Medicine 12/05/16 04/08/24 Johnny Casanova PharmD [address] [place] [address] Pharmacist Internal Medicine 09/26/22 Toñito Caraballo FNP [address] [place] [address] Nurse Practitioner Family Medicine 08/08/23 documented as of this encounter
--- OUTSIDE RECORDS SUMMARY | 2025-06-15 11:09 | XMS_ITS | Encounter Summary ---
Author Organization [employer] Address [address] [facility] 7t [place] [address] Care Team Providers Care Sales Contract Administrator Name Role Phone Iqra [place] MD Primary Care Provider + Johnny Casanova PharmD Unavailable [phone] Toñito Caraballo HOUSECLEANER FLOOR Unavailable Unavailable Encounter Details Date Type Department Care Team ([facility] Contact Info) Description 09/26/2022 Orders Only [facility] MEDICINE [address] [place] [address] Johnny Casanova, PharmD [address] [place] [address] Social History Tobacco Use Types Packs/Day Years [...] documented as of this encounter Care Teams Sales Contract Administrator Relationship Specialty Start Date End Date Iqra [place] MD [address] [place] [address] PCP - General Family Medicine 12/05/16 04/08/24 Johnny Casanova, PharmD [address] [place] [address] Pharmacist Internal Medicine 09/26/22 Toñito Caraballo FNP [address] [place] [address] Nurse Practitioner Family Medicine 08/08/23 documented as of this encounter
--- OUTSIDE RECORDS SUMMARY | 2025-06-15 11:09 | XMS_ITS | Encounter Summary ---
Author Organization [employer] Address 75 [facility] 7t [place] [address] Care Team Providers Care Authorization Nurse Name Role Phone Iqra [place] MD Primary Care Provider + Johnny Casanova PharmD Unavailable [phone] Toñito Caraballo SCREWMAKER AUTOMATIC Unavailable Unavailable Encounter Details Date Type Department Care Team ([facility] st Contact Info) Description 02/12/2024 Orders Only [facility] MEDICINE [address] [place] [address] Provider, MD Antoine Social History Tobacco Use [...] documented as of this encounter Care Teams Authorization Nurse Relationship Specialty Start Date End Date Iqra Nelson MD [address] [place] [address] PCP - General Family Medicine 12/05/16 04/08/24 Johnny Casanova PharmD [address] [place] [phone] Pharmacist Internal Medicine 09/26/22 Toñito Caraballo FNP [address] [place] [address] Nurse Practitioner Family Medicine 08/08/23 documented as of this encounter
--- OUTSIDE RECORDS SUMMARY | 2025-06-15 11:09 | XMS_ITS | Encounter Summary ---
Author Organization [employer] Address [address] [facility] 7t [place] [address] Care Team Providers Care Stretcher And Drier Name Role Phone Iqra [place] MD Primary Care Provider + Johnny Casanova PharmD Unavailable [phone] Toñito Caraballo Unavailable Unavailable Reason for Visit * Reason Comments Med Refill Encounter Details Date Type Department Care Team (Late st Contact Info) Description 04/22/2023 Refill [facility] MEDICINE [address] [place] [phone] Toñito Caraballo FNP Social History Tobacco Use [...] documented as of this encounter Care Teams Stretcher And Drier Relationship Specialty Start Date End Date Iqra [place] MD [address] [place] [address] PCP - General Family Medicine 12/05/16 04/08/24 Johnny Casanova PharmD [address] [place] [address] Pharmacist Internal Medicine 09/26/22 Toñito Caraballo FNP [address] [place] [address] Nurse Practitioner Family Medicine 08/08/23 documented as of this encounter
--- OUTSIDE RECORDS SUMMARY | 2025-06-15 11:11 | XMS_ITS | Clinical Summary ---
Author Organization [facility] Address [address] [place] [phone] Phone Care Team Providers Care Memorial Counselor Name Role Phone Iqra Nelson MD Primary [...] file Medical Devices Not on file Insurance [facility] MEDICARE PART A & B [place] & [place] & [place] & [place] PART A & [facility] & [place] & [place] PART A & B Care Teams Memorial Counselor Relationship Specialty Start Date End Date Iqra [place] MD [address] [place] [address] [address] [place] [phone] PCP - General Internal Medicine 10/19/20 Additional Source Comments The information contained in this document represents components of the legal health record. It is not the complete legal health record.[facility]
--- OUTSIDE RECORDS SUMMARY | 2025-06-15 11:11 | XMS_ITS | Encounter Summary ---
Author Organization [employer] Address [address] [facility] 7t [place] [address] Care Team Providers Care Boat Puller Name Role Phone Iqra Nelson MD Primary Care Provider + Johnny Casanova PharmD Unavailable [phone] Toñito Caraballo Unavailable Unavailable Reason for Visit * Reason Comments Med Refill Encounter Details Date Type Department Care Team (Late st Contact Info) Description 12/28/2022 Refill [facility] [address] [place] [address] Toñito Caraballo FNP Major depressive disorder, recurrent, [...] Diagnoses Diagnosis Major depressive disorder, recurrent, moderate (CMS/HCC) (HCC) Major depressive disorder, recurrent episode, moderate documented in this encounter Additional Health Concerns Assessment Noted Time PHQ-9 Depression Total Score: 16 12/11/ 023 1:04 PM EDT documented as of this encounter Care Teams Boat Puller Relationship Specialty Start Date End Date Iqra Nelson MD [address] [place] [phone] PCP - General Family Medicine 12/05/16 04/08/24 Johnny Casanova PharmD [address] [place] [phone] Pharmacist Internal Medicine 09/26/22 Toñito Caraballo FNP [address] [place] [phone] Nurse Practitioner Family Medicine 08/08/23 documented as of this encounter
--- OUTSIDE RECORDS SUMMARY | 2025-06-15 11:11 | XMS_ITS | Encounter Summary ---
Author Organization [employer] Address [address] [facility] 7t [place] [address] Care Team Providers Care Operations Manager/Coordinator Name Role Phone Iqra Nelson MD Primary Care Provider + Johnny Casanova PharmD Unavailable [phone] Toñito Caraballo Unavailable Unavailable Reason for Visit * Reason Comments Med Refill Encounter Details Date Type Department Care Team ([facility] st Contact Info) Description 02/21/2023 Refill [facility] MED[facility] [address] [place] [phone] Toñito Caraballo FNP Social History Tobacco Use [...] documented as of this encounter Care Teams Operations Manager/Coordinator Relationship Specialty Start Date End Date Iqra Nelson MD [address] [place] [address] PCP - General Family Medicine 12/05/16 04/08/24 Johnny Casanova PharmD [address] [place] [address] Pharmacist Internal Medicine 09/26/22 Toñito Caraballo FNP [address] [place] [address] Nurse Practitioner Family Medicine 08/08/23 documented as of this encounter
--- OUTSIDE RECORDS SUMMARY | 2025-06-15 11:11 | XMS_ITS | Encounter Summary ---
Author Organization [employer] Address [address] [facility] 7t [place] [address] Care Team Providers Care Staff Forester Name Role Phone Iqra Nelson MD Primary Care Provider + Johnny Casanova PharmD Unavailable [phone] Toñito Caraballo Unavailable Unavailable Reason for Visit * Reason Comments Med Refill Encounter Details Date Type Department Care Team (Late st Contact Info) Description 02/26/[address] [facility] MED[facility]INE [address] [place] [address] Toñito Caraballo FNP Major depressive disorder, recurrent, [...] documented as of this encounter Care Teams Staff Forester Relationship Specialty Start Date End Date Iqra Nelson MD [address] [place] [phone] PCP - General Family Medicine 12/05/16 04/08/24 Johnny Casanova PharmD [address] [place] [phone] Pharmacist Internal Medicine 09/26/22 Toñito Caraballo FNP [address] [place] [phone] Nurse Practitioner Family Medicine 08/08/23 documented as of this encounter
--- OUTSIDE RECORDS SUMMARY | 2025-06-15 11:11 | XMS_ITS | Encounter Summary ---
Author Organization [employer] Address [address] [facility] 7t [place] [address] Care Team Providers Care Building Services Coordinator Name Role Phone Iqra Nelson MD Primary Care Provider + Johnny Casanova PharmD Unavailable [phone] Toñito Caraballo SECRETARY Unavailable Unavailable Encounter Details Date Type Department Care Team ([facility] st Contact Info) Description 10/10/2022 Orders Only [facility] MEDICINE [address] [place], [place] [phone] Iqra Nelson MD [address] [place], [place] [phone] Vitamin D deficiency (Primary Dx); Senile osteoporosis [...] documented as of this encounter Care Teams Building Services Coordinator Relationship Specialty Start Date End Date Iqra Nelson MD [address] [place] [phone] PCP - General Family Medicine 12/05/16 04/08/24 Johnny Casanova, Ti [address] [place] [phone] Pharmacist Internal Medicine 09/26/22 Toñito Caraballo FNP [address] [place] [phone] Nurse Practitioner Family Medicine 08/08/23 documented as of this encounter
--- OUTSIDE RECORDS SUMMARY | 2025-06-15 11:11 | XMS_ITS | Encounter Summary ---
Author Organization [employer] Address [address] [facility] 7t [place] [address] Care Team Providers Care Monument Mason Name Role Phone Iqra Nelson MD Primary Care Provider + Johnny Casanova PharmD Unavailable [phone] Toñito Caraballo VEIN PUMPER Unavailable Unavailable Encounter Details Date Type Department Care Team ([facility] st Contact Info) Description 03/08/2023 Abstract [facility] MEDICINE [address] [place] [address] Iqra Nelson MD [address] [place] [address] Social History Tobacco Use Types Packs/Day Years [...] documented as of this encounter Care Teams Monument Mason Relationship Specialty Start Date End Date Iqra Nelson MD [address] [place] [address] PCP - General Family Medicine 12/05/16 04/08/24 Johnny Casanova, Ti [address] [place] [phone] Pharmacist Internal Medicine 09/26/22 Toñito Caraballo FNP [address] [place] [address] Nurse Practitioner Family Medicine 08/08/23 documented as of this encounter
[2025-06-15 11:22] LABS: Alanine Aminotransferase 23 U/L (0-31); Albumin Level 4.1 g/dL (3.5-5.0); Alkaline Phosphatase 105 U/L (39-117); Anion Gap 12 (12-20); Aspartate Amino Transferase 27 U/L (5-31); Blood Urea Nitrogen 10 mg/dL (9-16); Calcium 9.1 mg/dL (8.4-10.2); Carbon Dioxide 26 mmol/L (22-29); Chloride 109 mmol/L (96-108); Estimated Glomerular Filt Rate > 60; Potassium 4.5 mmol/L (3.3-5.1); Sodium 142 mmol/L (135-145); Total Protein 6.8 g/dL (6.5-8.0)
[2025-06-19 13:49] LABS: Vitamin D 25-OH, D2 25 ng/mL; Vitamin D 25-OH, D3 4 ng/mL; Vitamin D 25-OH, Total 29 ng/mL (30-100)
== END 2025-06-15 10:03 | disposition home or self-care (01) ==
LOC: HO.LAB 10:02
PROVIDERS: PCP Student in an Organized Health Care Education/Training Program; Visit Provider Nurse Practitioner Family
DX: M81.0 Age-related osteoporosis without current pathological fracture (principal); E55.9 Vitamin D deficiency, unspecified
CPT/HCPCS: 36415; 80053; 82306; 85025; 85652; 86140

== ENCOUNTER 2025-06-24 13:31 | Outpatient (AMB) | payer OTHER, SELFPAY ==
--- NOTE | 2025-06-24 13:58 | A.OFFVIS_ITS ---
Vital Signs 06/24/25 14:04 Height 4 ft 11 in Weight 169 lb 1.513 oz BMI 34.1 BP 124/70 Blood Pressure Location Lt brachial Position Sitting Pulse 60 Pulse Source Pulse Oximeter Pulse Oximetry (%) 99 Oxygen Delivery Method Room Air Intake Visit Reasons: Osteoporosis/prolia injection Intake Note: Patient presents for Osteoporosis and Prolia injection follow up. Allergies cephalexin Allergy (Severe, Verified 06/24/25 14:03) Rash seafood Allergy (Severe, Verified 06/24/25 14:03) Anaphylaxis vancomycin (VANCOMYCIN) Allergy (Severe, Verified 06/24/25 14:03) ANAPHYLAXIS, hives aspirin (ASPIRIN) Allergy (Intermediate, Verified 06/24/25 14:03) rash, asthma codeine (CODEINE) Allergy (Mild, Verified 06/24/25 14:03) rash egg (EGGS) Allergy (Mild, Verified 06/24/25 14:03) VOMITING peanut (PEANUTS) Allergy (Mild, Verified 06/24/25 14:03) HIVES,DIARRHEA amoxicillin (From Augmentin) Allergy (Verified 06/24/25 14:03) hives, swelling, difficulty breathing clavulanic acid (From Augmentin) Allergy (Verified 06/24/25 14:03) hives, swelling mushroom Allergy (Verified 06/24/25 14:03) Rash lactose Adverse Reaction (Intermediate, Verified 06/24/25 14:03) diarrhea cepha mixlexin Allergy (Intermediate, Uncoded 04/22/25 10:26) racing heart, rash Medication List - Last Reconciled 06/24/25 by Peace Chang MD acetaminophen (Tylenol Extra Strength) 500 mg PO Q6H PRN 30 days albuterol sulfate 90 mcg/actuation 90 mcg inhalation DAILY albuterol sulfate 2.5 mg (3 mL) inhalation TID PRN calcium carbonate 600 mg PO BID 90 days chlorthalidone 25 mg PO DAILY 90 days cyclobenzaprine 5 mg PO BEDTIME dicyclomine 20 mg PO QID dupilumab (Dupixent) 200 mg (1.14 mL) subcut Q2W ergocalciferol (vitamin D2) 1,250 mcg PO QWEEK 90 days estradiol 0.01%(0.1mg/gram) 1 g vaginal DAILY 30 days hydroxyzine HCl 25 mg PO DAILY lisinopril 40 mg PO DAILY 90 days lorazepam 1 mg PO DAILY PRN melatonin 3 mg PO BEDTIME omeprazole 40 mg PO BID ondansetron 4 mg PO Q8H PRN 30 days Saccharomyces boulardii (Digest Probiotic (S.boulardii)) PO DAILY sumatriptan succinate 50 mg PO DAILY PRN Symbicort 160-4.5 mcg/actuation (budesonide-formoterol) 2 puffs PO BID NS trazodone 50 mg PO BEDTIME HPI Comments Details: Patient is a 64-year-old female with asthma/COPD, depression, hypertension, YESSICA, migraines, IBS with constipation and diarrhea, osteoporosis and fibromyalgia here today for follow up Interval History: Patient last seen 12/30/24 with me - On IV Reclast infusion yearly - No falls since the last visit. No broken bones. - Did not want to continue with the IV infusions - Started on Prolia Today - On Prolia 60mg SC every 6 months - Doing well - States that she had some light headedness and stomach upset for 3 days after the Priolia but this reolved on day 4 - No falls or fractures - Concerned about her weight gain Rheumatologic History: Osteoporosis 2022. Based on DEXA -3.3 AP spine Initial history: This is a 63-year-old female who is referred by her PCP for evaluation of osteoporosis. Patient states that since traveled she would need repeated courses of prednisone to control her asthma. Until recently she was started on Dupixent with reduction in dependence on steroids. She was started on alendronate by her PCP about a month ago. He states that it causes dizzines s. She thought that it is taken once a month. She states that in her 30s, she was having back pain and was evaluated by family practice doctor and was told that she has lupus she was told that the treatments would consist of prednisone. Patient declined. She does not recall any formal assessment by a family practice doctor since then. She states that she can see intermittent joint pains. Intermittently she would have pain in her ribs on the right and posteriorly. Associated with swelling. In 2018 she had unprovoked PE and was found to have positive lupus anticoagulant. She was on rivaroxaban for some time. She is no longer on rivaroxaban. She is unaware of any family history of an autoimmune rheumatic disease Current Rheumatology Medication(s): Prolia 60mg SC every 6 months Vitamin D [id number] once a week [facility] Medical History Physical exam Urinary pain Rotator cuff tendonitis Chest pain Diarrhea Dyspnea on exertion History of pulmonary embolism Encounter for screening examination for sexually transmitted disease Women's annual routine gynecological examination Abdominal bloating Acute diarrhea COVID-19 Pulmonary embolism Pulmonary embolism Vaginal itching Hx of human papillomavirus infection Candidiasis of mouth and esophagus Abdominal cramping Pneumonia Bile salt-induced diarrhea History of pilonidal cyst Gastritis IBS (irritable bowel syndrome) Hypertension Pre-eclampsia Irritable bowel syndrome with both constipation and diarrhea Gallstones Surgical History H/O cervical polypectomy Hx of esophagogastroduodenoscopy H/O colonoscopy History of surgical removal of pilonidal cyst S/P tonsillectomy History of section History of cholecystectomy Family History Father Heart attack GERD (gastroesophageal reflux disease) Peptic ulcer disease Mother CHF (congestive heart failure) Afib Diverticulitis History of bowel resection Hypothyroid COVID-19 Maternal Aunt Diabetes Maternal Uncle Cancer Maternal Grandmother Cancer Brother Mental health disorder Social History Household Members: Spouse Housing: Apartment Are you a primary care administrative tech to a significant other at home: No Do you presently have visiting nurse or other home services: Yes (phone visits) Alcohol intake: former Patient Tobacco Use Status: Never used Tobacco e-Cigarette/Vaping Use: Never Used Second Hand Smoke Exposure: No service: No Current occupational status: retired Cognitive needs: No Hearing needs: No Vision needs: No Female Reproductive History Menstrual Age of Menarche: 10 Review of Systems Const Details: Review of Systems Constitutional: Denies fever, chills, weight loss ENT: Denies vision changes, eye pain or eye redness, dental caries, dry mouth GI: Denies nausea, vomiting, diarrhea, abdominal pain, change in BM Pulm: Denies SOB, DANIEL, hemoptysis, wheezing Cards: Denies chest pain, palpitations Skin: Denies Raynaud's, rash, nail changes, photosensitivity, 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 Well appearing and in no apparent painful distress MSK Hands * Right Hand: Able to make a fist. No swelling or tenderness to palpation of the MCPs, PIPs or DIPs. * Left Hand: Able to make a fist. No swelling or tenderness to palpation of the MCPs, PIPs or DIPs. Wrists * Right Wrist: Full ROM to flexion and extension. No swelling or TTP * Left Wrist: Full ROM to flexion and extension. No swelling or TTP Elbows * Right Elbow: Full ROM. No swelling or TTP. No TTP of the medial epicondyle. No TTP of the lateral epicondyle * Left Elbow: Full ROM. No swelling or TTP. No TTP of the medial epicondyle. No TTP of the lateral epicondyle Shoulders * Right shoulder: Full ROM. No swelling noted. No TTP of the AC joint. No TTP of the subacromial bursa. No TTP of the posterior shoulder * Left shoulder: Full ROM. No swelling noted. No TTP of the AC joint. No TTP of the subacromial bursa. No TTP of the posterior shoulder Knees * Right knee: Full ROM. No swelling noted. No TTP of the knee joint line. No TTP of pes anserine bursa * Left knee: Full ROM. No swelling noted. No TTP of the knee joint line. No TTP of pes anserine bursa. Ankles * Right ankle: Good ankle dorsiflexion and plantar flexion. No swelling. No TTP of the ankle joint * Left ankle: Good ankle dorsiflexion and plantar flexion. No swelling. No TTP of the ankle joint Feet * Right foot: Negative squeeze test * Left foot: Negative squeeze test Tender points? * No tenderness to palpation of the bilateral trapezius, supraspinatus, anterior costochondral junctions, bilateral suboccipital muscle insertions SKIN No rashes Vital Signs: Last Vital Signs Pulse 60 06/24/25 14:04 BP 124/70 06/24/25 14:04 Pulse Ox 99 06/24/25 14:04 Oxygen Delivery Method Room Air 06/24/25 14:04 BMI result Body Mass Index 34.1 Office Meds Prolia 60 mg/mL subcutaneous syringe Performing Provider: Peace Chang MD Performing Location: [facility] Administered by: Ale Bishop RN on 06/24/25 14:15 Dose Route Admin Location Dispensed Lot Number Expiration Date [facility] 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 This represents a BMD change of 7.1% compared to the prior exam. This is statistically significant. The bone mineral density of the left total hip is 0.696 with a T-score of -2.5, and a Z-score of -1.5. This represents BMD change of 2.8% compared to the prior exam. This is not statistically significant. The bone mineral density of the left femoral neck is 0.714 with a T-score of -2.3, and a Z-score of -1.1. This represents BMD change of -0.7% compared to the prior exam. Assessment & Plan Assessment & Plan (1) Osteoporosis: Comment: DEXA 10/2022: AP Spine -3.3, Left femur neck -2.3, Left femur total -2.6 DEXA 10/2024: AP Spine -2.8, Left femur neck -2.3, Left femur total -2.5 PO Alendronate - dizziness IV Reclast 02/2024, complained of jaw pain x 2 weeks. No longer wishes to continue Prolia 12/2024 Risk factors: steroid use for her asthma Code(s): M81.0 - Age-related osteoporosis without current pathological fracture Category: Medical Qualifiers: Osteoporosis type: unspecified Presence of current pathological fracture: without current pathological fracture Qualified Code(s): M81.0 - Age- related osteoporosis without current pathological fracture Plan: #Osteoporosis Patient is a 64 year old female with severe osteoporosis, improved on bisphosphonates. Switched to Prolia at last visit and tolerating same Plan - Prolia 60mg SC every 6 months - recommend getting a referral for weight loss clinic from her primary - RTC in 6 months - Labs before visit: CBC, CMP, ESR, CRP, Vitamin D (2) Encounter for monitoring denosumab therapy: Code(s): Z51.81 - Encounter for therapeutic drug level monitoring; Z79.620 - senior care (current) use of immunosuppressive biologic Plan: #Long-term use of Denosumab Discussed with patient the risks and benefits of denosumab (Prolia) for the management of their osteoporosis Benefits include improved bone density, decreased fracture risk Risks include rapid bone loss if denosumab stopped, osteonecrosis of the jaw especially in patients with poor oral hygiene/diabetes/use of glucocorticoids/age greater than 65 years, atypical femoral fractures, injection site reactions. Mild increased risk of infections due to RANKL on T helper cells, increased risk of hypocalcemia especially in CKD patients Keep vitamin-D at least 35 ng/mL Advised to delay non emergent dental procedures to toward the end of the 6 month cycle and if they plan to stop denosumab would need to continue antiresorptive to maintain the effects of denosumabe Plan I spent 30 minutes reviewing the record and labs, taking a history, examining the patient, discussing the treatment plan, ordering diagnostic work up and documenting in the medical record Orders: Orders AMB Denosumab Injection Practice Supplied Today M81.0 - Age-related osteoporosis without current pathological fracture Comprehensive Met. Panel 6 Months M81.0 - Age-related osteoporosis without current pathological fracture, Z79.899 - Other senior living (current) drug therapy Vitamin D 25-OH Total 6 Months M81.0 - Age-related osteoporosis without current pathological fracture Medications: Refilled ergocalciferol (vitamin D2) 1,250 mcg PO QWEEK 13 caps 1RF 90 days Coding Level of Care Code Est Pt Level 4 (14625) Complex EM visit Add On G2211 Diagnoses Osteoporosis without current pathological fracture, unspecified osteoporosis type M81.0 Osteoporosis type: unspecified Presence of current pathological fracture: without current pathological fracture Encounter for monitoring denosumab therapy Z51.81; Z79.620
[2025-06-24 14:04] VITALS: BP 124/70; PULSE 60; O2SAT 99; BMI 34.1
== END 2025-06-24 14:37 | disposition home or self-care (01) ==
LOC: HO.RHES 13:32
PROVIDERS: PCP Internal Medicine; Visit Provider Student in an Organized Health Care Education/Training Program
DX: M81.0 Age-related osteoporosis without current pathological fracture (principal); Z51.81 Encounter for therapeutic drug level monitoring; Z79.620 Long term (current) use of immunosuppressive biologic
CPT/HCPCS: 99214; G2211

== ENCOUNTER → 2025-06-24 13:31 | Outpatient (BNVA) | payer OTHER, SELFPAY | PROVIDERS: PCP Internal Medicine; Visit Provider Student in an Organized Health Care Education/Training Program | DX: M81.0 Age-related osteoporosis without current pathological fracture (principal); E55.9 Vitamin D deficiency, unspecified; M79.7 Fibromyalgia | CPT/HCPCS: 96372; 99212; J0897 ==

== ENCOUNTER 2025-07-07 12:36 | Outpatient (REF) | payer OTHER, SELFPAY ==
--- OUTSIDE RECORDS SUMMARY | 2025-07-07 16:03 | XMS_ITS | Encounter Summary ---
Author Organization [employer] Address [address] [facility] 7t [place] [address] Care Team Providers Care Licensed Chemical Spray Technician Name Role Phone Iqra Nelson MD Primary Care Provider + Johnny Casanova PharmD Unavailable [phone] Toñito Caraballo Unavailable Unavailable Reason for Visit * Reason Onset Date Comments Med Refill Appointment 10/11/2023 LVM-Re: her apt for today as [id number] @2pm Encounter Details Date Type Department Care Team (Late st Contact Info) Description 10/11/2023 Refill [facility] MEDICINE [address] [place] [address] Toñito Caraballo FNP Social History Tobacco Use [...] documented as of this encounter Care Teams Licensed Chemical Spray Technician Relationship Specialty Start Date End Date Iqra Nelson MD [address] [place] [id number] PCP - General Family Medicine 12/05/16 04/08/24 Johnny Casanova PharmD [address] [place] [phone] Pharmacist Internal Medicine 09/26/22 Toñito Caraballo FNP [address] [place] [address] Nurse Practitioner Family Medicine 08/08/23 documented as of this encounter
--- OUTSIDE RECORDS SUMMARY | 2025-07-07 16:03 | XMS_ITS | Encounter Summary ---
Author Organization [employer] Address [address] [facility] 7t [place] [address] Care Team Providers Care Hris Administrator Name Role Phone Iqra Nelson MD Primary Care Provider + Johnny Casanova PharmD Unavailable [phone] Toñito Caraballo SALES AND MARKETING ADMINISTRATOR Unavailable Unavailable Encounter Details Date Type Department Care Team ([facility] st Contact Info) Description 02/12/2024 Orders Only [facility] MEDICINE [address] [place] [address] Provider, MD Antoine Social History Tobacco Use [...] documented as of this encounter Care Teams Hris Administrator Relationship Specialty Start Date End Date Iqra Nelson MD [address] [place] [id number] PCP - General Family Medicine 12/05/16 04/08/24 Johnny Casanova PharmD [address] [place] [phone] Pharmacist Internal Medicine 09/26/22 Toñito Caraballo FNP [address] [place] [phone] Nurse Practitioner Family Medicine 08/08/23 documented as of this encounter
--- OUTSIDE RECORDS SUMMARY | 2025-07-07 16:04 | XMS_ITS | Data Portability ---
Author Organization ID - [facility], [facility] Address [address] [place] [phone] Assessment Encounter Date Assessment Date Assessment LastModified by Organization Details LastModified Time 04/21/2024 04/21/2024 63-year-old female with a history of allergic rhinitis presents today for evaluation of her ears, with recurrent infections, tinnitus, and decreased hearing. There is no evidence of infection today. We reviewed aural hygiene. I recommended trying DermOtic oil as needed for the pruritus. I did world travel counselor her that a nasal steroid such [...] nasal spray,viet pension 2023 024 [id number], [address] [place], [address], 4 15:52:39 DermOtic Oil 0.01 % ear drops 2023 024 [id number], [address] [place], [address], 4 12:15:29 Patient TargetsNo targets recorded. Patient [...] Time Sensorineural hearing loss of bilateral ears [id number] Active 2023 [place] [address] [place] [address], [place], [phone], [facility] - [facility] 4 13:52:52 Allergic rhinitis 55128738 Active 2023 ESTELA MONROE MD [address] [place] [address], [place], [phone], [facility] - [facility] 4 15:50:03 Pruritic disorder 954993575 Active 2023 ESTELA MONROE MD [address] [place] [address], [phone], [facility] - [facility] 4 15:50:09 Pruritic disorder of skin Active 2023 ESTELA MONROE MD [address] [place] [address], [place], [phone], [facility] - [facility] 4 15:52:00 Problem Notes None recorded. Procedures Surgical History Date Name Laterality Status Provider Name and Address Organization Details Recorded Time 04/21/20 24 Comp Audio with Tymps - 30442 & 64036 completed [facility] [place] [address] [facility],[address], [phone], [facility] 04/21/2024 13:52:45 tonsillectomy completed ESTELA MONROE MD [address] [place] [address],[address], [phone], [place] - [facility] 04/28/2024 07:58:20 section completed ESTELA MONROE MD [address] [place] [address], [phone], [facility] 04/28/2024 07:58:28 Imaging Results None recorded. Procedure Notes None recorded. Medical Equipment None Reported. Allergies Allergen ID Allergen Name Allergen Category Reaction Reaction Severity Criticality Documentation Date Start Date Code Code System Note Provider Name and Address Organization Details Recorded Time 754278 aspirin medicatio n Not available Not available Not available 04/21/2024 1191 RxNorm Sabi Potevangelista paige [facility] 4 13:44:51 080468 amoxicill in medicatio n Not available Not available Not available 04/21/2024 723 RxNorm Sabi Potevangelista paige [facility] 4 13:45:02 730711 cultivate d mushroom extract food,medi cation Not available Not available Not available 04/21/2024 24067 17 RxNorm Sabi Potvin grecia, [facility] 4 13:45:09 Medications Name Sig Start Date [...] Updated DateTime 04/21/2024 149.86 cm 32.1 kg/m2 74793.19 g Sabi Grijalva [place] - [facility] 04/21/2024 15:22:56 Social History None recorded. Functional [...] Diagnosis SNOMED-CT Code Diagnosis ICD10 Code Diagnosis IMO Codes Diagnosis Note [id number] ESTELA MONROE MD [facility] [address] [phone] 04/21/2024 13:35:47 04/21/2024 15:54:22 Sensorineural hearing loss of bilateral ears 800668308 H90.3 Audiologic al evaluation results: Right ear: Normal sloping to moderate sensorineu ral hearing loss with excellent word recognitio n. Left ear: Normal sloping to moderate sensorineu ral hearing loss with excellent word recognitio n. Tympanomet ry: Right Ear:Type A Left Ear:Type A Allergic rhinitis 401043 04 J30.9 Pruritic disorder 109915 002 L29.9 Health Concerns Section Related Observation LastModified by Organization Detai ls LastModified Time None Recorded Concern Status LastModified by Organization Details LastModified Time None Recorded Advance Directives Directive None Recorded Payers Insurance Date Sequence Insurance Name Policy Number Policy Barrow Covered Member ID Barrow Member ID Guarantor Name 04/21/2024 1 [employer] [facility] - DOS ON OR AFTER 2022 - RETIREMENT OPTIONS AND ONE CARE (MEDICARE REPLACEMENT/AD VANTAGE - PPO) Yoselin Rodríguez [id number] Yoselin Rodríguez Notes Date Note Type Note Provider Name and Address Organization Details Recorded Time 04/21/2024 text/html ROS as noted in the HPI 63-year-old female with a history of allergies on dupixent, no recommendation for allergy shots, no nasal sprays, presents with recurrent ear infections. She was treated last year 3 times. She has had more trouble hearing on the left side and has had pruritus as well. Most recent infection was several months ago. ESTELA MONROE MD [address] [place] [address], [phone], [facility] - [facility] 04/28/2024 08:02:56 OBGyn Episode No OBEpisode recorded.
--- OUTSIDE RECORDS SUMMARY | 2025-07-07 16:04 | XMS_ITS | Encounter Summary ---
Author Organization [employer] Address [address] [facility] [address] [place] [address] Care Team Providers Care Control Officer Name Role Phone Iqra Nelson MD Primary Care Provider + Johnny Casanova PharmD Unavailable [phone] Toñito Caraballo Unavailable Unavailable Reason for Visit * Reason Comments Med Refill Encounter Details Date Type Department Care Team (Late st Contact Info) Description 12/28/2022 Refill [facility] MEDICINE [address] [place] [address] Toñito Caraballo FNP Major depressive disorder, recurrent, [...] documented as of this encounter Care Teams Control Officer Relationship Specialty Start Date End Date Iqra Nelson MD [address] [place] [phone] PCP - General Family Medicine 12/05/16 04/08/24 Johnny Casanova PharmD [address] [place] [phone] Pharmacist Internal Medicine 09/26/22 Toñito Caraballo FNP [address] [place] [phone] Nurse Practitioner Family Medicine 08/08/23 documented as of this encounter
--- OUTSIDE RECORDS SUMMARY | 2025-07-07 16:04 | XMS_ITS | Encounter Summary ---
Author Organization [employer] Address [address] [facility] 7t [place] [address] Care Team Providers Care Respiratory Therapy Technician Name Role Phone Iqra Nelson MD Primary Care Provider + Johnny Casanova PharmD Unavailable [phone] Toñito Caraballo Unavailable Unavailable Reason for Visit * Reason Comments Med Refill Encounter Details Date Type Department Care Team (Late st Contact Info) Description 04/22/2023 Refill [facility] MEDICINE [address] [place] [id number] Toñito Caraballo FNP Social History Tobacco Use [...] documented as of this encounter Care Teams Respiratory Therapy Technician Relationship Specialty Start Date End Date Iqra Nelson MD [address] [place] [address] PCP - General Family Medicine 12/05/16 04/08/24 Johnny Casanova PharmD [address] [place] [address] Pharmacist Internal Medicine 09/26/22 Toñito Caraballo FNP [address] [place] [address] Nurse Practitioner Family Medicine 08/08/23 documented as of this encounter
--- OUTSIDE RECORDS SUMMARY | 2025-07-07 16:04 | XMS_ITS | Encounter Summary ---
Author Organization [employer] [facility] [employer] Address [address] [facility] 7t [place] [address] Care Team Providers Care Medication Nurse Name Role Phone Iqra Nelson MD Primary Care Provider + Johnny Casanova PharmD Unavailable [phone] Toñito Caraballo Unavailable Unavailable Reason for Visit * Reason Comments Med Refill Encounter Details Date Type Department Care Team ([facility] st Contact Info) Description 02/21/2023 Refill [facility] MEDICINE [address] [place] [phone] Toñito Caraballo FNP Social History Tobacco Use [...] documented as of this encounter Care Teams Medication Nurse Relationship Specialty Start Date End Date Iqra Nelson MD [address] [place] [address] PCP - General Family Medicine 12/05/16 04/08/24 Johnny Casanova PharmD [address] [place] [address] Pharmacist Internal Medicine 09/26/22 Toñito Caraballo FNP [address] [place] [address] Nurse Practitioner Family Medicine 08/08/23 documented as of this encounter
--- OUTSIDE RECORDS SUMMARY | 2025-07-07 16:04 | XMS_ITS | Encounter Summary ---
Author Organization [employer] Address [address] [facility] 7t [place] [address] Care Team Providers Care Resident Services Director Name Role Phone Iqra Nelson MD Primary Care Provider + Johnny Casanova PharmD Unavailable [phone] Toñito Caraballo TUGBOAT ENGINEER Unavailable Unavailable Encounter Details Date Type Department Care Team ([facility] st Contact Info) Description 03/08/2023 Abstract [facility] MEDICINE [address] [place] [address] Iqra Nelson MD [address] [place] [address] Social History Tobacco Use Types Packs/Day Years [...] documented as of this encounter Care Teams Resident Services Director Relationship Specialty Start Date End Date Iqra Nelson MD [address] [place] [address] PCP - General Family Medicine 12/05/16 04/08/24 Johnny Casanova, Ti [address] [place] [address] Pharmacist Internal Medicine 09/26/22 Toñito Caraballo FNP [address] [place] [address] Nurse Practitioner Family Medicine 08/08/23 documented as of this encounter
--- OUTSIDE RECORDS SUMMARY | 2025-07-07 16:04 | XMS_ITS | Encounter Summary ---
Author Organization [employer] Address [address] [facility] 7t [place] [address] Care Team Providers Care Casing Operator Name Role Phone Iqra Nelson MD Primary Care Provider + Johnny Casanova PharmD Unavailable [phone] Toñito Caraballo BENCH LATHE OPERATOR Unavailable Unavailable Encounter Details Date Type Department Care Team ([facility] Contact Info) Description 09/26/2022 Orders Only [facility] MEDICINE [address] [place] [address] Johnny Casanova, PharmD [address] [place] [address] Social History Tobacco Use Types Packs/Day Years [...] documented as of this encounter Care Teams Casing Operator Relationship Specialty Start Date End Date Iqra Nelson MD [address] [place] [address] PCP - General Family Medicine 12/05/16 04/08/24 Johnny Casanova, PharmD [address] [place] [phone] Pharmacist Internal Medicine 09/26/22 Toñito Caraballo FNP [address] [place] [address] Nurse Practitioner Family Medicine 08/08/23 documented as of this encounter
--- OUTSIDE RECORDS SUMMARY | 2025-07-07 16:04 | XMS_ITS | Data Portability ---
Author Organization [employer] [facility], [facility] Address [address] [place] [phone] Care Team Providers Care Automobile Sales Consultant Name Role Phone Unavailable OTHER HIM CCA OTHER Assessment Encounter Date Assessment Date Assessment LastModified by Organization Details LastModified Time 05/05/2023 05/05/2023 I provided real -time medical direction via phone for this encounter, and was available for additional phone based assistance as needed. I have reviewed and agree with the Assessment and Plan as documented by the Machine Binder Stripper eagle Not available 05/05/2023 17:13:47 08/27/2024 08/27/2024 service [...] 2 Ag, QL IA, respiratory specimen [address], [phone] 4 19:41:18 rapid flu (A+B) [address], [phone] 4 19:41:57 Referral None recorded. Procedures None recorded. Surgeries None recorded. Imaging None recorded. Medication Orders prednisone 20 mg tablet 2023 024 [id number], [address] [place], [address], 4 16:22:59 prednisone 20 mg tablet 2023 024 [id number], [address] [place], [address], 4 16:24:53 benzonatate 100 mg capsule 2023 024 [id number], [address] [place] [address], [address], 4 16:24:53 azithromyci n 250 mg tablet 2022 023 [id number], [address] [place] [address], [address], 3 17:11:16 Augmentin 875 mg-125 mg tablet 2022 023 [id number], [address] [place] [address], [address], 3 16:07:33 metronidazo le 500 mg tablet 2021 022 [id number], [address] [place] [address], [address], 2 18:29:57 metronidazo le 500 mg tablet 2021 022 [email or web address] Not available 2 09:06:30 Patient TargetsNo targets recorded. Patient InstructionsNo instructions recorded. Reason for Referral None Reported. Results Created Date Observation Date Name Description Value Unit Range Abnormal Flag Note LastModifiedBy Organization Detail LastModifiedTime 08/27/20 24 08/27/2024 rapid flu (A+B) Flu negati ve Not Available [facility] ed [address] [place] [address], [phone] 08/27/2024 19:14:26 08/27/20 24 08/27/2024 rapid SARS CoV 2 Ag, QL IA, respi rator y speci men rapid SARS CoV 2 Ag, QL IA, respiratory specimen negati ve Not Available [facility] - [facility] ed [address] [place] [address], [phone] 08/27/2024 19:14:26 Result Notes None recorded. Medical [...] Not available Not available Not available 05/05/2023 89354 RxNorm Not Available [facility] - production 4 03:47:03 3052 ibuprofen medicatio n hives Not available Not available 05/05/2023 5640 RxNorm SOB Karen Giraldo MD [address] [place] [address],[address], [place], [phone], [employer] 3 17:17:13 3053 Augmentin medicatio n dyspnea Not available Not available 05/05/2023 05361 2 RxNorm Urtic aria Karen Giraldo MD [address] [place] [address],[address], [place], [phone], [employer] 3 17:18:03 Medications Name Sig Start Date [...] Not Available No t Available BD Sharps Score Caller active Not Available Not Available No t [...] Available Not Available Vitals Date Recorded Body temperature Heart rate Respiratory rate Oxygen saturation Oxygen saturation in Arterial blood by Pulse oximetry Systolic And Diastolic Provider Name and Address Organization Details Last Updated DateTime 2 98.6 [degF] 80 /min 16 /min 100 % 100 % 161/78 mm[Hg] Orlin Ruiz MD [address] [place] [address],[address], [place], [address], [employer] 2 18:30:24 Date Recorded Oxygen saturation Oxygen saturation in Arterial blood by Pulse oximetry Heart rate Body weight Body temperature Respiratory rate Systolic And Diastolic Provider Name and Address Organization Details Last Updated DateTime 3 98 % 98 % 71 /min 88761.8 8 g 97.1 [degF] 16 /min 181/79 mm[Hg] Not Available [facility] - [employer] 3 16:05:25 Date Recorded Body weight Provider Name an d Address Organization Details Last Updated DateTime 05/05/2023 91942.82 g Lexy Mendoza [address] [place] [address],[address], [place], [address], [employer] 05/05/2023 17:09:15 Date Recorded Respiratory rate Body temperature Oxygen saturation Oxygen saturation in Arterial blood by Pulse oximetry Heart rate Systolic And Diastolic Provider Name and Address Organization Details Last Updated DateTime 3 12 /min 98.4 [degF] 98 % 98 % 66 /min 152/74 mm[Hg] Not Available [employer] [facility] - [employer] 3 17:08:28 Date Recorded Oxygen saturation Oxygen saturation in Arterial blood by Pulse oximetry Body weight Respiratory rate Heart rate Body temperature Systolic And Diastolic Provider Name and Address Organization Details Last Updated DateTime 4 99 % 99 % 14673.5 36 g 16 /min 82 /min 98 [degF] 164/72 mm[Hg] Not Available [employer] [facility] - [employer] 4 16:20:14 Social History None recorded. Functional Status None recorded. Mental Status None recorded. Family History Nothing Reported. Medical History No medical history recorded. Gynecological HistoryNo gynecological history recorded. Obstetrics History GPAL:G 0 P 0 0 0 0 Past Encounters Encounter ID Performer Location Encounter Start Date Encounter Closed Date Diagnosis/Indication Diagnosis SNOMED-CT Code Diagnosis ICD10 Code Diagnosis IMO Codes Diagnosis Note [id number] [facility] [address] [place] [phone] 01/05/2022 18:15:37 06/07/2022 14:14:50 Acute pelvic pain 872967341 R10.2 Reports history of cramping after cervical polyp removal. Reports spotting, on re-assessm ent with assistant manager retail, passing fishy-sme lling white discharge. No abdominal tenderness on assistant manager retail examinatio n to suggest referred intra-abdo mary process. Reports symptoms are not consistent with UTI, so LE on UA likely represents inflammati on versus contaminat ion. Unable to perform pelvic examinatio n with assistant manager retail so difficult to assess for other pelvic pathology. Would benefit from close follow-up by physician who performed the procedure (Dr. Goldsmith?? ) Will treat empiricall y with Flagyl for BV in the interim. [id number] Andrea Thorpe MD Main - [facility] [address] [place] [phone] 04/24/2023 16:05:20 04/24/2023 23:29:29 Acute otitis media 3779208 H66.92 Patient with history of adult ear infection presents with typical symptoms of ear pain. Machine Binder Stripper examinatio n consistent with ear infection. Will treat with augmentin. They can pick it up tonight, so did not give anything via assistant manager retail. [id number] Karen Giraldo MD Main - [facility] [address] [place] [phone] 05/05/2023 17:08:26 05/07/2023 07:15:01 Acute otitis media 3481667 H66.92 Patient reports she has had azithromyc [...] or middle ear/ inner ear fluid drain [id number] Domi Garland MD [facility] [employer] [address] [place] [phone] 08/27/2024 16:20:07 08/28/2024 00:15:45 Acute exacerbation of chronic obstructive pulmonary disease 204743443 J44.1 Health Concerns Section Related Observation LastModified by Organization Detai ls LastModified Time None Recorded Concern Status LastModified by Organization Details LastModified Time None Recorded Advance Directives Directive None Recorded Payers Insurance Date Sequence Insurance Name Policy Number Policy Barrow Covered Member ID Barrow Member ID Guarantor Name 08/28/2024 1 [facility] - DOS PRIOR TO 2022 - DUAL ELIGIBLE (MEDICARE REPLACEMENT/AD VANTAGE - HMO) Yoselin Rodríguez [id number] Yoselin Rodríguez 08/28/2024 1 [facility] - DOS ON OR AFTER 2022 - DUAL ELIGIBLE - ASSISTED OPTIONS AND ONE CARE (MEDICARE REPLACEMENT/AD VANTAGE - HMO) Yoselin Rodríguez [id number] Yoselin Rodríguez Notes Date Note Type Note [...] with her previous UTI. Orlin Ruiz MD [address] [place] [address],[address], [place], [phone], [employer] 01/05/2022 18:31:02 04/24/2023 text/html ROS as noted in the HPI HPI: Severe left ear ache .................... .................... .................... .................... .................... .................... .................... . CRC Nursing Assessment: Comments: [facility] triage nurse calling on behalf of member with request for MIH visit for complaints of outer ear discomfort for 3 days Aware MIH visit does not include inner ear eval. Request inst[facility] visit to eval unsure fever/chills Verify member name/- Andrea Thorpe MD [address] [place] [address],[address], [place], [phone], [employer] 04/24/2023 16:07:52 05/05/2023 text/html ROS as noted in the HPI HPI: mbr with know ear infection for two weeks/nasal congestion/moderate pain, recent ED visit ordered Fluconazole, mbr looking for oral antibiotics, requesting MIH. Protocol Used: Ear - Discharge Protocol-Based Disposition: Consider [facility], [facility] Community Clinician, or PCP visit [...] .................... .................... .................... .................... .................... .................... ........... Machine Binder Stripper Note From Estrada Jain: Dispatched to the [...] to have a steady gait. [facility] contacted to discuss patient presentation, complaints, and clinical findings. [facility] orders Azythromycin 500mg PO be [...] .................... . Disposition: Fulfilled Karen Giraldo MD [address] [place] [address],[address], [place], [phone], [employer] 05/05/2023 22:29:41 08/27/2024 text/html HPI: Member calling [...] any additional information to process this visit. Machine Binder Stripper Organization Information for [employer]anu Olson Business Legal Name: [employer] Address: [address] [place] [address], [place] [address], Solar Designer: Zachary Heredia MD [facility] No.: [id number] Machine Binder Stripper POC Test Results from [employer] Olson Rapid COVID antigen (16:14:44) COVID: - Attachments uploaded as part of this test result can be found under Documents section. Rapid influenza antigen (16:14:45) Flu: - Attachments uploaded as part of this test result can be found under Documents section. .................... .................... .................... .................... .................... .................... .................... . Machine Binder Stripper Note From Shantanu Olson: Pt co dry [...] Covid and flu swab neg. [facility] Dada contacted and 20mg prednisone given PO, right meds, dose, date and route. RX called in for prednisone and benzonatate and continue with nebulizer treatments.. Pt education on signs indicating the ER. Pt advised to continue with photoengraver apprentice appt. Pt advised to follow up with PCP. .................... .................... .................... .................... .................... .................... .................... . [facility] Consulted: Domi Garland .................... .................... .................... .................... .................... .................... .................... . Disposition: Fulfilled Domi Garland MD [address] [facility],[address], [place], [address], [employer] 08/27/2024 19:14:58 OBGyn Episode No OBEpisode recorded.
--- OUTSIDE RECORDS SUMMARY | 2025-07-07 16:04 | XMS_ITS | Clinical Summary ---
Author Organization [employer] Address [address] [facility] 7t [place] [address] Care Team Providers Care Spindraw Operator Name Role Phone Johnny Casanova PharmD Unavailable [phone] Toñito Caraballo KEG RAISER Unavailable Unavailable Allergies Active Allergy Reactions Criticality [...] diets. She wants a referral to the public health physician. Discussed re weight reduction options including exercise, life style modifications, diet, referral to print support specialist. Discussed re lower calorie intake, [...] retiring, so any issues or concerns, contact [facility]. All her questions were answered and I [...] EST): Continue estrace cream and fu with RN CLINICAL APPEALS. Refill sent to pharmacy. Assessment & Plan (10/09/2022 2:44 PM EST): Most likely secondary to atrophic vaginitis. -use estrogen cream daily x2 weeks and then 3 times per week. Pneumonia due to COVID-19 virus 08/24/2022 Polyp of cervix 08/24/2022 Assessment & Plan (03/26/2023 2:56 PM EDT): s/p resection by RN CLINICAL APPEALS, more than a year ago, last PAP was normal refer to RN CLINICAL APPEALS second opinion due to persistent dyspareunia Postcoital bleeding 08/24/2022 Assessment & Plan (03/26/2023 3:04 PM EDT): See previous issue and refer to RN CLINICAL APPEALS Pruritus 08/24/2022 Right upper quadrant pain 08/24/2022 [...] q2wk + albuterol PRN and FU w/ safety companion Decline flue and Covid IZ today, advised [...] Department Care Team Description 04/16/2025 Results Follow-Up [facility] MEDICINE [address] [place] [address] Iqra Nelson MD Gamma Glutamyl Transferase (GGT), [...] 2:11 PM EDT) Liver Fibrosis Score 0.18 [facility] Liver Fibrosis Stage F0 [facility] Liver Fibrosis Interpretation SEE NOTE [facility] Comment:no fibrosisFibro Ivon t Score [...] (severe fibrosis) Nec Inflam Act Score 0.11 [facility] Nec Inflam Act Grade A0 [facility] Nec Inflam Act Interpretation SEE NOTE [facility] Comment:no activityActiTest Score (a) Metavir Score a>=0 and a<=0.17 : A0 (no activity)a>0.17 and a<=0.29 : A0-A1 (no activity)a>0.29 and a<=0.36 : A1 (minimal activity)a>0.36 and a<=0.52 : A1-A2 (minimal activity)a>0.52 and a<=0.60 : A2 (significant activity)a>0.60 and a<=0.62 : A2-A3 (significant activity)a>0.62 and a<=1.00 : A3 (severe activity) XNH-Agjex-6-Macroglo bulin 199 106 - 279 mg/dL [facility] FIB-Haptoglobin 167 43 - 212 mg/dL [facility] FIB-Apolipoprotein A1 183 101 - 198 mg/dL [facility] FIB-Total Bilirubin 0.4 0.2 - 1.2 mg/dL [facility] FIB-GGT 68(A) 3 - 65 U/L [facility] FIB-ALT 27 6 - 29 U/L [facility] Reference ID [id number] [facility] Footnote SEE NOTE [facility] Comment: The reliability of results [...] and C.The performance characteristics have been determined by[facility]. Ithas not been cleared or approved by the U.S. Food and DrugAdministration. Performance characteristics refer to theanalytical performance of the test.PS DEPT., [employer], the associated logo, Standard TreasuryDominik and all associated [place] DEPT. Diagnostics tesfaye are theregistered trademarks of [employer]. All third partymarks - (R) and (TM) - are the property of their respectiveowners. (C) [id number] [employer]. Allrights reserved.THIS TEST WAS PERFORMED AT:[employer] [id number] [facility] [place] [address]CTTUFRAMAKRISHNA ECHAVARRIA MD,PHD,JOSÉ ANTONIO 04/14/2025 2:11 PM EDT 04/14/2025 2:11 PM EDT us Generic External Data Provider LAB BLOOD ORDERAB LES Final Result Performing Organization Address [facility]/ZIP Co de Phone Number [facility] [address] [place] [phone] * Actin (Smooth Muscle) Antibody (IgG) (04/14/2025 2:11 PM EDT) Smooth Muscle Antibody <20 <20 U [facility] Comment:Reference Range: <20 U: Negative>or=20 [...] with AIH type 1.THIS TEST WAS PERFORMED AT:[employer] [id number] [place] [address]HBUGUQNMONIKA BRITTON MD,PHD 04/14/2025 2:11 PM EDT 04/14/2025 2:11 PM EDT us Generic External Data Provider LAB BLOOD ORDERAB LES Final Result Performing Organization Address City/[facility]/ZIP Co de Phone Number [facility] [address] [place] [phone] * Alpha-Fetoprotein, Tumor Marker (04/14/2025 2:11 PM EDT) Pathologist [facility] Alpha Fetoprotein 2.0 ng/mL [facility] Comment:Reference Range: <6. 1The use of AFP as a tumor marker in females is not recommended.This test was performed using the Ja Coulterchemiluminescent method. Values obtained fromdifferent assay methods cannot be usedinterchangeably. AFP levels, regardless ofvalue, should not be interpreted as absoluteevidence of the presence or absence of disease.THIS TEST WAS PERFORMED AT:[employer] [address] [address]XJEKTDANA HARRISON MD 04/14/2025 2:11 PM EDT 04/14/2025 2:11 PM EDT Generic External Data Provider LAB BLOOD ORDERAB LES Final Result Performing Organization Address City/[facility]/ZIP Co de Phone Number [facility] [address] [place] [phone] * Mitochondrial Antibody with Reflex to Titer (04/14/2025 2:11 PM EDT) [facility] Mitochondrial Antibodies NEGATIVE NEGATIVE [facility] Comment:THIS TEST WAS PERFOR MED AT:[employer] [address] [address]IMBUWDANA HARRISON MD Mitochondrial Ab Titer TNP [facility] 04/14/2025 2:11 PM EDT 04/14/2025 2:11 PM EDT us Generic External Data Provider LAB BLOOD ORDERAB LES Final Result Performing Organization Address City/[facility]/ZIP Co de Phone Number [facility] [address] [place] [phone] * (ABNORMAL) Gamma Glutamyl Transferase (GGT) (04/14/2025 2:11 PM EDT) [facility] Gamma Glutamyl Transpeptidase 87(H) 7 - 33 U/L [facility] 04/14/2025 2:11 PM EDT 04/14/2025 2:11 PM EDT us Generic External Data Provider LAB BLOOD ORDERAB LES Final Result Performing Organization Address City/[facility]/ZIP Co de Phone Number [facility] [address] [place] [phone] [phone] * Ferritin (04/14/2025 2:11 PM EDT) Ferritin 106 10 - 250 ng/mL [facility] 04/14/2025 2:11 PM EDT 04/14/2025 2:11 PM EDT us Generic External Data Provider LAB BLOOD ORDERAB LES Final Result Performing Organization Address City/[facility] Co de Phone Number [facility] [address] [place] [address] [phone] * Lipid Panel with Reflex to Direct LDL (11/08/2023 12:00 AM EST) Triglycerides 128 <150 mg/dL [facility] Comment:Desirable Triglyceri de: less than [...] 190 mg/dL HDL Cholesterol 62 >40 mg/dL [facility] Comment:Desirable HDL: great er than 40 mg/dL Note: This HDL assay may give artificially low results in patients with liver disease. Blood 11/08/2023 11/08/2023 Iqra Nelson MD LAB BLOOD ORDERABLES Fin al Result [facility] [address] [place] [address] [phone] * HPV mRNA E6/E7 w/Reflex to [...] alternative testing options.For additional information, please refer tohttp://education.[employer]/faq/BPX357r2(This link if provided for information/educational purposes only.)THIS TEST WAS PERFORMED AT:[address] [place] [address]SMRJCDANA HARRISON MD HPV mRNA E6/E7 TNP [facility] HPV 16 RNA [facility] HPV 18/45 RNA [facility] 05/31/2023 1:12 PM EDT 06/01/2023 9:00 AM EDT [facility] External Provider LAB CYT OLOGY ORDERABLES Final Result [facility] [address] [place] [address] [phone] * Pap Smear (05/31/2023 1:12 PM EDT) 05/31/2023 1:12 PM EDT 06/01/2023 9:00 AM EDT [facility] - 06/12/2023 1:57 PM EDT ----- ------- Name: MarcosYoselin Brody Age/Sex: 62/F : 1960 Unit#: [id number] Attend Dr: Ale Francisco CNM Re05/31/23 Status: [facility] Location: [facility] Disch: ----- ------- SPEC : [id number] RECD: 06/01/23 STATUS: BLAYNE BLAIR NUM: [id number] AGATHA: 05/31/23-[address] [facility] [address]: Ale Francisco [facility] ENTERED: 06/01/23-110 SP TYPE: Pap Smr OT [...] 59, 66, 68) HPV testing performed by [employer], [place], [place]. See reference laboratory portion of the EMR for entire report. Clinical Information LMP: No menses Previous PAP test: 07/19/21, abnormal Other history: +HPV, personal history of other infectious and parasitic diseases Material Received ThinPrep-Cervical Copies To: Iqra Nelson MD [address] [place] [address] Ale [address] [place] [address] ----- ------- Signed (signature on file) Yajaira Adams Ekta 06/12/23 1357 ----- ------- END OF REPORT [facility] External Provider LAB [facility] ORDERABLES Final Result [facility] [address] [place] [phone] * Mammography Report 1 (04/21/2021 1:15 [...] Most Recently Relevant to Health Maintenance Insurance [facility] [address] [place] [address] Care Teams Spindraw Operator Relationship Specialty Start Date End Date Johnny Casanova, PharmD [address] [place] [address] Pharmacist Internal Medicine 09/26/22 Toñito Caraballo FNP [address] [place] [address] Nurse Practitioner Family Medicine 08/08/23
--- OUTSIDE RECORDS SUMMARY | 2025-07-07 16:04 | XMS_ITS | Encounter Summary ---
Author Organization [employer] Address 75 [facility] 7t [place] [address] Care Team Providers Care Security And Compliance Analyst Name Role Phone Iqra Nelson MD Primary Care Provider + Johnny Casanova PharmD Unavailable [phone] Toiñto Caraballo Unavailable Unavailable Reason for Visit * Reason Comments Med Refill Encounter Details Date Type Department Care Team (Late st Contact Info) Description 07/20/2023 Refill [facility] [address] [place] [address] Toñito Caraballo FNP Social History Tobacco Use [...] as of this encounter Care Teams Security And Compliance Analyst Relationship Specialty Start Date End Date Iqra Nelson MD [address] [place] [address] PCP - General Family Medicine 12/05/16 04/08/24 Johnny Casanova PharmD [address] [place] [address] Pharmacist Internal Medicine 09/26/22 Toñito Caraballo FNP [address] [place] [address] Nurse Practitioner Family Medicine 08/08/23 documented as of this encounter
--- OUTSIDE RECORDS SUMMARY | 2025-07-07 16:04 | XMS_ITS | Encounter Summary ---
Author Organization [employer] Address [address] [facility] 7t [place] [address] Care Team Providers Care Cloth Booker Name Role Phone Iqra Nelson MD Primary Care Provider + Johnny Casanova PharmD Unavailable [phone] Toñito Caraballo GROUTMAN Unavailable Unavailable Encounter Details Date Type Department Care Team ([facility] st Contact Info) Description 10/10/2022 Orders Only [facility] MED[facility]INE [address] [place], [place] [phone] Iqra Nelson MD [address] [place], [place] [phone] Vitamin D deficiency (Primary Dx); Senile osteoporosis [...] 155/76( 024 9:13 AM EDT) No Johnny Caasnova, PharmLuis Armando Record your blood pressure once per day Blood Pressure No Johnny Casanova PharmD documented as of this encounter Visit Diagnoses Diagnosis Vitamin D deficiency- Primary Senile osteoporosis documented in this encounter Additional Health Concerns Assessment Noted Time PHQ-9 Depression Total Score: 8 09/04/20 22 9:34 AM EST documented as of this encounter Care Teams Cloth Booker Relationship Specialty Start Date End Date Iqra Nelson MD [address] [place] [address] PCP - General Family Medicine 12/05/16 04/08/24 Johnny Casanova, Ti [address] [place] [phone] Pharmacist Internal Medicine 09/26/22 Toñito Caraballo FNP [address] [place] [address] Nurse Practitioner Family Medicine 08/08/23 documented as of this encounter
--- OUTSIDE RECORDS SUMMARY | 2025-07-07 16:04 | XMS_ITS | Encounter Summary ---
Author Organization [employer] Address [address] [facility] 7t [place] [address] Care Team Providers Care Sawmill Supervisor Name Role Phone Iqra Nelson MD Primary Care Provider + Johnny Casanova PharmD Unavailable [phone] Toñito Caraballo Unavailable Unavailable Reason for Visit * Reason Comments Med Refill Encounter Details Date Type Department Care Team (Late st Contact Info) Description 02/26/2023 Refill [facility] MEDIC[facility] [address] [place] [address] Toñito Caraballo FNP Major depressive disorder, recurrent, [...] documented as of this encounter Care Teams Sawmill Supervisor Relationship Specialty Start Date End Date Iqra Nelson MD [address] [place] [address] PCP - General Family Medicine 12/05/16 04/08/24 Johnny Casanova PharmD [address] [place] [address] Pharmacist Internal Medicine 09/26/22 Toñito Caraballo FNP [address] [place] [address] Nurse Practitioner Family Medicine 08/08/23 documented as of this encounter
--- OUTSIDE RECORDS SUMMARY | 2025-07-07 16:04 | XMS_ITS | Clinical Summary ---
Author Organization [facility] Address [address] [place] [phone] Phone Care Team Providers Care Operations General Agent Name Role Phone Iqra Nelson MD Primary [...] file Medical Devices Not on file Insurance [facility] MEDICARE PART A & B [place] [facility] [place] & [place] A & B Care Teams Operations General Agent Relationship Specialty Start Date End Date Iqra Nelson MD [address] [place] [address] [address] [place] [phone] PCP - General Internal Medicine 10/19/20 Additional Source Comments The information contained in this document represents components of the legal health record. It is not the complete legal health record.[facility]
== END 2025-07-07 12:37 | disposition home or self-care (01) ==
LOC: HO.MAMMO 12:36
PROVIDERS: PCP Internal Medicine; Visit Provider Internal Medicine
DX: Z12.31 Encounter for screening mammogram for malignant neoplasm of breast (principal)
CPT/HCPCS: 77063; 77067; 99212

== ENCOUNTER → 2025-07-07 13:15 | Outpatient (BNV) | payer OTHER, SELFPAY | PROVIDERS: PCP Internal Medicine; Visit Provider Internal Medicine | DX: Z12.31 Encounter for screening mammogram for malignant neoplasm of breast (principal) | CPT/HCPCS: 77063; 77067 ==

== ENCOUNTER 2025-07-07 14:05 | Outpatient (AMB) | payer OTHER, SELFPAY ==
[2025-07-07 14:20] VITALS: BP 190/75; PULSE 62; O2SAT 100; BMI 33.8
--- NOTE | 2025-07-07 14:20 | A.OFFVIS_ITS ---
Vital Signs 07/07/25 14:20 Height 4 ft 11 in Weight 167 lb 8.821 oz BMI 33.8 BP 190/75 H Blood Pressure Location Lt brachial Position Sitting Pulse 62 Pulse Source Pulse Oximeter Pulse Oximetry (%) 100 Oxygen Delivery Method Room Air Intake Visit Reasons: 6 week follow up Intake Note: Ada returns to in office follow up for lab and X ray. CC: Patient concerned about weight gain. She c/o pain around navel, abd cramps, a lot of burping, and constipation alternating with diarrhea. Pain reports increased pain around navel with activity. Plywood Layup Line Back Feeder Required: No Accompanied by: Self / Same As Patient Allergies cephalexin Allergy (Severe, Verified 07/07/25 14:25) Rash seafood Allergy (Severe, Verified 07/07/25 14:25) Anaphylaxis vancomycin (VANCOMYCIN) Allergy (Severe, Verified 07/07/25 14:25) ANAPHYLAXIS, hives aspirin (ASPIRIN) Allergy (Intermediate, Verified 07/07/25 14:25) rash, asthma codeine (CODEINE) Allergy (Mild, Verified 07/07/25 14:25) rash egg (EGGS) Allergy (Mild, Verified 07/07/25 14:25) VOMITING peanut (PEANUTS) Allergy (Mild, Verified 07/07/25 14:25) HIVES,DIARRHEA amoxicillin (From Augmentin) Allergy (Verified 07/07/25 14:25) hives, swelling, difficulty breathing clavulanic acid (From Augmentin) Allergy (Verified 07/07/25 14:25) hives, swelling mushroom Allergy (Verified 07/07/25 14:25) Rash lactose Adverse Reaction (Intermediate, Verified 07/07/25 14:25) diarrhea cepha mixlexin Allergy (Intermediate, Uncoded 04/22/25 10:26) racing heart, rash Medication List - Last Reconciled 07/07/25 by SHYANN Manning acetaminophen (Tylenol Extra Strength) 500 mg PO Q6H PRN 30 days albuterol sulfate 90 mcg/actuation 90 mcg inhalation DAILY albuterol sulfate 2.5 mg (3 mL) inhalation TID PRN calcium carbonate 600 mg PO BID 90 days chlorthalidone 25 mg PO DAILY 90 days cyclobenzaprine 5 mg PO BEDTIME denosumab (Prolia) 60 mg subcut [id number] dicyclomine 20 mg PO QID dupilumab (Dupixent) 200 mg (1.14 mL) subcut Q2W ergocalciferol (vitamin D2) 1,250 mcg PO QWEEK 90 days estradiol 0.01%(0.1mg/gram) 1 g vaginal DAILY 30 days hydroxyzine HCl 25 mg PO DAILY lisinopril 40 mg PO DAILY 90 days lorazepam 1 mg PO DAILY PRN melatonin 3 mg PO BEDTIME omeprazole 40 mg PO BID ondansetron 4 mg sublingual Q8H PRN Saccharomyces boulardii (Digest Probiotic (S.boulardii)) PO DAILY sucralfate (Carafate) M,W,F only in am orally 2 times a day; sumatriptan succinate 50 mg PO DAILY PRN Symbicort 160-4.5 mcg/actuation (budesonide-formoterol) 2 puffs PO BID NS trazodone 50 mg PO BEDTIME HPI HPI 6 week follow up: Details: Assessment & Plan (1) GERD (gastroesophageal reflux disease): Code(s): K21.9 - Gastro-esophageal reflux disease without esophagitis Category: Medical Qualifiers: Esophagitis presence: esophagitis presence not specified Qualified Code(s): K21.9 - Gastro-esophageal reflux disease without esophagitis (2) Transaminitis: Comment: BASELINE LABS 12/30/24 13:04 Estimated GFR > 60 Total Bilirubin 0.6 AST 36 H ALT 35 H Alkaline Phosphatase 112 C-Reactive Protein 1.08 H CURRENT LABS US OF ABDOMEN 03/05/2025 Findings: The visualized pancreas, aorta, and inferior vena cava are unremarkable. Liver normal size and mildly echogenic. Right lobe 12.1 cm length. No focal hepatic masses. Common duct 3.0 mm diameter. Post cholecystectomy. No sonographic Machuca sign. Main portal vein antegrade. Right kidney normal size, 9.3 cm in length. Normal cortical width and echotexture. No solid or cystic renal masses. No nephrolithiasis. No hydronephrosis. Left kidney normal, 9.0 cm in length. Normal cortical width and echotexture. No solid or cystic renal masses. No nephrolithiasis. No hydronephrosis. Spleen measures 11.2 cm. No splenic masses. No ascites. No lymphadenopathy. Impression: 1. Post cholecystectomy. 2. Mildly echogenic liver reflecting mild diffuse hepatic steatosis or diffuse hepatocellular disease. No focal hepatic lesions. Code(s): R74.01 - Elevation of levels of liver transaminase levels Category: Medical (3) Irritable bowel syndrome with both constipation and diarrhea: Comment: now more bile salt diarrhea since she is status post cholecystectomy Code(s): K58.2 - Mixed irritable bowel syndrome Category: Medical (4) Abdominal bloating: Code(s): R14.0 - Abdominal distension (gaseous) Category: Medical (5) Weight gain: Code(s): R63.5 - Abnormal weight gain Category: Medical (6) Nausea and vomiting: Code(s): R11.2 - Nausea with vomiting, unspecified Category: Medical Plan on omeprazole, dicyclomine, and the Creon. Simethicone made her bloating feel worse. - The patient is a 64-year-old female presenting with persistent bloating. - Previously trialed treatments include simethicone, Creon, and metronidazole without symptomatic relief. This would seem to exclude pancreatic exocrine insufficiency or SIBO as underlying causes of her subjective feeling of bloating. - Probiotics introduced relief for constipation but did not affect bloating significantly. - Patient notes weight gain and increased abdominal tightness, previously manageable with lifestyle adjustments. - Bloating symptoms unresponsive to dietary changes, occasionally alleviated by dicyclomine. - Endures nausea and occasional vomiting, exacerbated by symptoms worsening. - we will try to get a thyroid to see if this is contributing to weight gain. I also think an x-ray of the abdomen be appropriate so that we can see if there is any significant amount of gas trapping going on in the abdomen. I am now uncertain if this truly is bloating from gas or whether she simply experiencing abdominal weight gain with more central adiposity contributing to her symptoms. We will also give her some Zofran for her nausea in the short term. Return office visit in 6 weeks Orders: Orders TSH reflex Free T4 Today R14.0 - Abdominal distension (gaseous), R63.5 - Abnormal weight gain XR abdomen w decubitus Today R14.0 - Abdominal distension (gaseous), R63.5 - Abnormal weight gain Medications: New ondansetron 4 mg PO Q8H PRN 60 tabs 0RF nausea and vomiting 30 days R11.2 - Nausea with vomiting, unspecified, R63.5 - Abnormal weight gain Refilled omeprazole 40 mg PO BID 180 caps 1RF K21.9 - Gastro-esophageal reflux disease without esophagitis dicyclomine 20 mg PO QID 360 tabs 2RF K58.2 - Mixed irritable bowel syndrome, R10.9 - Unspecified abdominal pain Discontinued mysmyf-vdyigyzw-skovler 24,000-76,000 -120,000 unit (Creon) Discontinued Reason: Doctor's Order 2 caps PO BID 30 days 120 caps 6RF K58.9 - Irritable bowel syndrome, unspecified LABS: Laboratory Tests 05/26/25 14:20 TSH 1.74 X-RAY OF THE ABDOMEN DECUBITUS 05/26/2025 FINDINGS: Clips in the right upper quadrant are most consistent with cholecystectomy. There is minimal small bowel gas. There is moderate stool in the right and descending colon. There are no abnormal air-fluid levels. Mild degenerative changes are present in the SI and pubic symphysis joints. XR/XR abdomen w decubitus IMPRESSION: Unremarkable bowel gas pattern. Cholecystectomy. TODAY'S VISIT [facility] Medical History Physical exam Urinary pain Rotator cuff tendonitis Chest pain Diarrhea Dyspnea on exertion History of pulmonary embolism Encounter for screening examination for sexually transmitted disease Women's annual routine gynecological examination Abdominal bloating Acute diarrhea COVID-19 Pulmonary embolism Pulmonary embolism Vaginal itching Hx of human papillomavirus infection Candidiasis of mouth and esophagus Abdominal cramping Pneumonia Bile salt-induced diarrhea History of pilonidal cyst Gastritis IBS (irritable bowel syndrome) Hypertension Pre-eclampsia Irritable bowel syndrome with both constipation and diarrhea Gallstones Surgical History H/O cervical polypectomy Hx of esophagogastroduodenoscopy H/O colonoscopy History of surgical removal of pilonidal cyst S/P tonsillectomy History of section History of cholecystectomy Family History Father Heart attack GERD (gastroesophageal reflux disease) Peptic ulcer disease Mother CHF (congestive heart failure) Afib Diverticulitis History of bowel resection Hypothyroid COVID-19 Maternal Aunt Diabetes Maternal Uncle Cancer Maternal Grandmother Cancer Brother Mental health disorder Social History Household Members: Spouse Housing: Apartment Are you a primary home care music therapist to a significant other at home: No Do you presently have visiting nurse or other home services: Yes (phone visits) Alcohol intake: former Patient Tobacco Use Status: Never used Tobacco e-Cigarette/Vaping Use: Never Used Second Hand Smoke Exposure: No service: No Current occupational status: retired Cognitive needs: No Hearing needs: No Vision needs: No Female Reproductive History Menstrual Age of Menarche: 10 Review of Systems Const Denies fatigue, Denies fever(s), Denies night sweats, Denies poor appetite, Reports weight gain and Denies weight loss ENT Reports Normal hearing present, Denies dental pain, Denies dysphagia, Denies hearing loss, Denies mouth pain, Denies odynophagia, Denies throat swelling, Denies tongue swelling and Reports other (Dentition adequate) Card Reports no additional complaints Resp Reports no additional complaints GI Details: Denies abdominal pain, Denies melena, Denies bloating, Denies hematochezia, Denies constipation, Denies GI cramping, Denies dysphagia, Denies excessive flatus, Denies early satiety, Denies heartburn, Denies diarrhea, Denies nausea, Denies odynophagia, Denies vomiting and Denies hematemesis Skin/Breast Denies pruritus, Denies lesions, Denies rash and Denies jaundice Neuro Reports Normal hearing present and Denies Abnormal speech present Endo Denies fatigue Aller/Immun Denies throat swelling and Denies tongue swelling Physical Exam Vital Signs: Last Vital Signs Pulse 62 07/07/25 14:20 BP 190/75 H 07/07/25 14:20 Pulse Ox 100 07/07/25 14:20 Oxygen Delivery Method Room Air 07/07/25 14:20 BMI result Body Mass Index 33.8 Const General: cooperative, no acute distress, well developed and well groomed Nutritional Appearance: well nourished, obese and overweight Orientation/consciousness: oriented to person, oriented to place and oriented to time Limitations: No language barrier, ambulation with cane, ambulation with walker and wheelchair HEENT Head: Yes normocephalic and Yes atraumatic Eyes General: appearance normal, both eyes and all related structures Pupils: Equal, round and reactive pupils present Neck Neck: Yes normal visual inspection and Yes no lymphadenopathy Thyroid: Thyroid normal Resp Effort & Inspection: normal respiratory effort and able to speak in complete sentences Auscultation: clear to auscultation bilaterally Cardio Rate: regular rate Rhythm: regular rhythm Heart sounds: Normal, physiologic split S2 sound present Peripheral pulses: radial pulses present and posterior tibial pulses present GI Inspection: No distended and No Abdominal panniculus present Palpation (GI): Soft to palpation, nontender, no guarding, not rigid, No hepatosplenomegaly present and Hepatosplenomegaly present Percussion: Yes normal to percussion Auscultation: normal bowel sounds Rectal Exam - Female: deferred Skin General skin exam: no rashes or lesions noted, turgor normal, skin not dry, no jaundice, No spider nevi and no striae Rashes: no rashes Nails: normal Neuro General: oriented to person, oriented to place and oriented to time Cranial nerves: Yes Equal, round and reactive pupils present and Yes Normal hearing present Speech: No Abnormal speech present Extrem General: Yes normal to inspection, No clubbing, No cyanosis and No edema Psych Thought process: Normal thought process present and not confabulating Thought content: Normal thought content present Insight: Good insight present (Psych) Judgement: Good judgement present (Psych) Results Reviewed Results Reviewed: Laboratory Tests 05/26/25 14:20 TSH 1.74 X-RAY OF THE ABDOMEN DECUBITUS 05/26/2025 FINDINGS: Clips in the right upper quadrant are most consistent with cholecystectomy. There is minimal small bowel gas. There is moderate stool in the right and descending colon. There are no abnormal air-fluid levels. Mild degenerative changes are present in the SI and pubic symphysis joints. XR/XR abdomen w decubitus IMPRESSION: Unremarkable bowel gas pattern. Cholecystectomy. Assessment & Plan Assessment & Plan (1) GERD (gastroesophageal reflux disease): Code(s): K21.9 - Gastro-esophageal reflux disease without esophagitis Category: Medical Qualifiers: Esophagitis presence: esophagitis presence not specified Qualified Code(s): K21.9 - Gastro-esophageal reflux disease without esophagitis (2) Irritable bowel syndrome with both constipation and diarrhea: Comment: now more bile salt diarrhea since she is status post cholecystectomy Code(s): K58.2 - Mixed irritable bowel syndrome Category: Medical (3) Abdominal bloating: Code(s): R14.0 - Abdominal distension (gaseous) Category: Medical (4) Nausea and vomiting: Code(s): R11.2 - Nausea with vomiting, unspecified Category: Medical Plan on omeprazole, dicyclomine, and the Creon. Simethicone made her bloating feel worse. - The patient is a 64-year-old female presenting with chronic diarrhea and bloating. I found no reason for her bloating in terms of gas trapping or thyroid issues, and she only has a moderate stool burden. With this I think the only reason that I can fathom is that she has irritation of both the small and large intestines from bile salt after her cholecystectomy. In the past we have had difficulty managing what is actually IBS-M utilizing either Carafate or cholestyramine for any length of time cause constipation. We even tried half a pill daily. What I suggest is that we try half a pill Sunday and Sunday and see if we can find a weight of balance for symptoms and give her relief. She gets some relief from bloating with the dicyclomine, which she takes also for her periumbilical pain, but she can not take it too often because it makes her a little bit drowsy. - Reports diarrhea approximately three to four times a day, with intermittent constipation occurring once a week. - History of cholecystectomy, which may be contributing to symptoms through bile overproduction. - Symptoms include discomfort and bloating in the abdominal region. - Past interventions include sucralfate for chronic diarrhea leading to constipation, despite attempts to adjust dosage. - Reports a 6-pound weight gain potentially linked to peripheral edema from Prolia treatment. - Cardiovascular evaluation revealed transient episodes of tachycardia and high blood pressure, with no structural heart disease concerns. ROV 8 weeks Medications: New sucralfate (Carafate) M,W,F only in am orally 2 times a day; 7 tabs 3RF R11.2 - Nausea with vomiting, unspecified Coding Level of Care Code Est Pt Level 3 (17482) Diagnoses Gastroesophageal reflux disease, unspecified whether esophagitis present K21.9 Esophagitis presence: esophagitis presence not specified Irritable bowel syndrome with both constipation and diarrhea K58.2 Abdominal bloating R14.0 Nausea and vomiting R11.2
--- OUTSIDE RECORDS SUMMARY | 2025-07-07 19:00 | XMS_ITS | Data Portability ---
Author Organization [place] [facility] Address [address] [place] [phone] Assessment Encounter Date Assessment Date Assessment LastModified by Organization Details LastModified Time 04/21/2024 04/21/2024 63-year-old female with a history of allergic rhinitis presents today for evaluation of her ears, with recurrent infections, tinnitus, and decreased hearing. There is no evidence of infection today. We reviewed aural hygiene. I recommended trying DermOtic oil as needed for the pruritus. I did membership counselor her that a nasal steroid such [...] nasal spray,viet pension 2023 024 [id number], [address] [place], [address], 4 15:52:39 DermOtic Oil 0.01 % ear drops 2023 024 [id number], [address] [place], [address], 4 12:15:29 Patient TargetsNo targets recorded. Patient [...] Time Sensorineural hearing loss of bilateral ears 664439551 Active 2023 [place] [place] [address] [place] [address], [place], [phone], [facility] [place] 4 13:52:52 Allergic rhinitis 54807954 Active 2023 ESTELA MONROE MD [address] [place] [address], [place], [phone], [facility] - [facility] [place] 4 15:50:03 Pruritic disorder 988980950 Active 2023 ESTELA MONROE MD [address] [place] [address], [phone], [facility] - [facility] [place] 4 15:50:09 Pruritic disorder of skin Active 2023 ESTELA MONROE MD [address] [place] [address], [place], [phone], [facility] - [facility] [place] 4 15:52:00 Problem Notes None recorded. Procedures Surgical History Date Name Laterality Status Provider Name and Address Organization Details Recorded Time 04/21/20 24 Comp Audio with Tymps - 13155 & 87527 completed [facility] [place] [address] [facility],[address], [phone], [facility] [place] 04/21/2024 13:52:45 tonsillectomy completed ESTELA MONROE MD [address] [place] [address],[address], [phone], [place] - [facility] 04/28/2024 07:58:20 section completed ESTELA MONROE MD [address] [place] [address], [phone], [facility] 04/28/2024 07:58:28 Imaging Results None recorded. Procedure Notes None recorded. Medical Equipment None Reported. Allergies Allergen ID Allergen Name Allergen Category Reaction Reaction Severity Criticality Documentation Date Start Date Code Code System Note Provider Name and Address Organization Details Recorded Time 127356 aspirin medicatio n Not available Not available Not available 04/21/2024 1191 RxNorm Sabi Potevangelista pagie [facility] 4 13:44:51 102908 amoxicill in medicatio n Not available Not available Not available 04/21/2024 723 RxNorm Sabi Potevangelista paige [facility] 4 13:45:02 290017 cultivate d mushroom extract food,medi cation Not available Not available Not available 04/21/2024 91528 17 RxNorm Sabi Potvin grecia, [facility] 4 13:45:09 Medications Name Sig Start [...] Updated DateTime 04/21/2024 149.86 cm 32.1 kg/m2 88068.19 g Sabi Grijalva [place] - [facility] 04/21/2024 15:22:56 Social History None recorded. [...] ICD10 Code Diagnosis IMO Codes Diagnosis Note [id number] ESTELA MONROE MD [facility] [address] [phone] 04/21/2024 13:35:47 04/21/2024 15:54:22 Sensorineural hearing loss of bilateral ears [id number] H90.3 Audiologic al evaluation results: Right ear: Normal sloping to moderate sensorineu ral hearing loss with excellent word recognitio n. Left ear: Normal sloping to moderate sensorineu ral hearing loss with excellent word recognitio n. Tympanomet ry: Right Ear:Type A Left Ear:Type A Allergic rhinitis 112519 04 J30.9 Pruritic disorder 241446 002 L29.9 Health Concerns Section Related Observation LastModified by Organization Detai ls LastModified Time None Recorded Concern Status LastModified by Organization Details LastModified Time None Recorded Advance Directives Directive None Recorded Payers Insurance Date Sequence Insurance Name Policy Number Policy Barrow Covered Member ID Barrow Member ID Guarantor Name 04/21/2024 1 [facility] - DOS ON OR AFTER 2022 - RETIREMENT OPTIONS AND ONE CARE (MEDICARE REPLACEMENT/AD VANTAGE - PPO) Yoselin Rodríguez [id number] Yoselin Rodríguez Notes Date Note Type Note [...] was several months ago. ESTELA MONROE MD [address] [place] [address], [phone], [facility] - [facility] 04/28/2024 08:02:56 OBGyn Episode No OBEpisode recorded.
== END 2025-07-07 15:02 | disposition home or self-care (01) ==
LOC: HO.HGI 14:07
PROVIDERS: PCP Internal Medicine; Visit Provider Nurse Practitioner
DX: K21.9 Gastro-esophageal reflux disease without esophagitis (principal); K58.2 Mixed irritable bowel syndrome; R14.0 Abdominal distension (gaseous); R11.2 Nausea with vomiting, unspecified
CPT/HCPCS: 99213

== ENCOUNTER 2025-08-10 12:14 | Outpatient (AMB) | payer OTHER, SELFPAY ==
[2025-08-10 13:05] VITALS: BMI 33.3
--- NOTE | 2025-08-10 13:05 | A.OFFVIS_ITS ---
Vital Signs 08/10/25 13:05 Height 4 ft 11 in Weight 165 lb BMI 33.3 Intake Visit Reasons: Pain in Right Foot Intake Note: Yoselin is a 64 year old female who presents today as a new patient for am evaluation of her right foot pain. Patient states the pain has been going on since 04/17/25 and runs from the 3rd and 4th toes and goes up the foot. She has tried taking OTC tylenol and found slight relief for her pain symptoms. Allergies cephalexin Allergy (Severe, Verified 08/12/25 13:36) Rash seafood Allergy (Severe, Verified 08/12/25 13:36) Anaphylaxis vancomycin (VANCOMYCIN) Allergy (Severe, Verified 08/12/25 13:36) ANAPHYLAXIS, hives aspirin (ASPIRIN) Allergy (Intermediate, Verified 08/12/25 13:36) rash, asthma codeine (CODEINE) Allergy (Mild, Verified 08/12/25 13:36) rash egg (EGGS) Allergy (Mild, Verified 08/12/25 13:36) VOMITING peanut (PEANUTS) Allergy (Mild, Verified 08/12/25 13:36) HIVES,DIARRHEA amoxicillin (From Augmentin) Allergy (Verified 08/12/25 13:36) hives, swelling, difficulty breathing clavulanic acid (From Augmentin) Allergy (Verified 08/12/25 13:36) hives, swelling mushroom Allergy (Verified 08/12/25 13:36) Rash lactose Adverse Reaction (Intermediate, Verified 08/12/25 13:36) diarrhea cepha mixlexin Allergy (Intermediate, Uncoded 08/12/25 13:36) racing heart, rash HPI Comments Details: The patient is a 64-year-old female with a PMH as seen as below presenting with B/L foot pain. The foot pain began after an injury on April 17, where the patient experienced a sharp pain around the right third and fourth toes. The pain is described as throbbing and is exacerbated by standing or walking for extended periods. The patient reports that the pain sometimes extends to the ankle, especially by nighttime after a busy day. The patient has a history of a left calcaneal spur diagnosed about eight years ago and states she experiences pain to the heel. She states she takes Tylenol for pain with no relief. The patient also has a diagnosis of fibromyalgia. She denies any other pedal concerns. [facility] Medical History Calcaneal spur, left foot Bilateral foot pain Plantar fasciitis of left foot Metatarsalgia, right foot Physical exam Urinary pain Rotator cuff tendonitis Chest pain Diarrhea Dyspnea on exertion History of pulmonary embolism Encounter for screening examination for sexually transmitted disease Women's annual routine gynecological examination Abdominal bloating Acute diarrhea COVID-19 Pulmonary embolism Pulmonary embolism Vaginal itching Hx of human papillomavirus infection Candidiasis of mouth and esophagus Abdominal cramping Pneumonia Bile salt-induced diarrhea History of pilonidal cyst Gastritis IBS (irritable bowel syndrome) Hypertension Pre-eclampsia Irritable bowel syndrome with both constipation and diarrhea Gallstones Surgical History H/O cervical polypectomy Hx of esophagogastroduodenoscopy H/O colonoscopy History of surgical removal of pilonidal cyst S/P tonsillectomy History of section History of cholecystectomy Family History Father Heart attack GERD (gastroesophageal reflux disease) Peptic ulcer disease Mother CHF (congestive heart failure) Afib Diverticulitis History of bowel resection Hypothyroid COVID-19 Maternal Aunt Diabetes Maternal Uncle Cancer Maternal Grandmother Cancer Brother Mental health disorder Social History Household Members: Spouse Housing: Apartment Are you a primary ocular care technologist to a significant other at home: No Do you presently have visiting nurse or other home services: Yes (phone visits) Alcohol intake: former Patient Tobacco Use Status: Never used Tobacco e-Cigarette/Vaping Use: Never Used Second Hand Smoke Exposure: No service: No Current occupational status: retired Cognitive needs: No Hearing needs: No Vision needs: No Female Reproductive History Menstrual Age of Menarche: 10 Review of Systems Const Details: - Musculoskeletal: Reports throbbing pain around the right third and fourth toes, extending to the ankle, exacerbated by standing or walking. - Neurological: Reports chronic pain associated with fibromyalgia. All systems reviewed & are unremarkable except as noted in HPI and below Physical Exam Vital Signs: BMI result Body Mass Index 33.3 Extrem Other: B/L LE Focused Physical Exam: Derm: No open lesions, abrasions, or wounds noted. No clinical signs of infe ction. No ecchymosis, erythema, or discoloration noted. Skin supple turgor WNL. Vasc: DP/PT pulses palpable. CFT < 3 secs. Temp gradient warm to warm. Pedal hair absent. No varicosities noted. Neuro: Protective sensations grossly intact. MSK: Pain on palpation to the submet 3 and 4 area of right foot. Negative iraida's sign. Positive squeeze test. No crepitus or fluctuance noted. ROM of the forefoot painful. ROM of the hindfoot and ankle WNL. Antalgic gait noted unassisted. Pain on palpation to the plantar aspect of the left heel, worse to the medial calcaneal tubercle. Negative windlass mechanism. Results Reviewed Results Reviewed: Podiatry read of right foot xray (04/22/25): Os peroneum noted. Plantar calcaneal spur noted. No acute fractures or dislocations noted. Right foot xray (04/22/25): FINDINGS: Three views of the right foot are submitted. Osseous mineralization is normal. There is no fracture or dislocation. The joint spaces are preserved. There is a plantar calcaneal spur. The soft tissues are unremarkable. IMPRESSION: No evidence of fracture of the right foot. Assessment & Plan Assessment & Plan (1) Bilateral foot pain: Code(s): M79.671 - Pain in right foot; M79.672 - Pain in left foot Category: Medical (2) Plantar fasciitis of left foot: Code(s): M72.2 - Plantar fascial fibromatosis Category: Medical (3) Metatarsalgia, right foot: Code(s): M77.41 - Metatarsalgia, right foot Category: Medical (4) Calcaneal spur, left foot: Code(s): M77.32 - Calcaneal spur, left foot Category: Medical Plan Patient was informed and verbally consented to the use of an ambient scribe for clinic note documentation during this visit. I discussed with the patient the potential causes of the bilateral foot pain, including metatarsalgia and possible neuroma to the right foot and exacerbation of plantar fasciitis to the left foot. I explained the role of inflammation in exacerbating symptoms. We reviewed the treatment options, including the use of Medrol Dosepak, and the importance of using metatarsal pads to reduce pressure on the foot as well as inserts. I advised the patient to avoid walking barefoot to prevent worsening of the left heel pain and discussed the benefits of wearing supportive footwear. - Prescribed Medrol Dosepak for inflammation and swelling management. - Advised patient to continue at home stretching exercises. - Provided patient with metatarsal pads. - Avoid barefoot walking and wear supportive shoe gear. RTC in 3 weeks. Medications: New methylprednisolone (Medrol (Chetan)) PO PER PKG DIR 21 ea 0RF M72.2 - Plantar fascial fibromatosis, M77.32 - Calcaneal spur, left foot, M77.41 - Metatarsalgia, right foot, M79.671 - Pain in right foot, M79.672 - Pain in left foot Coding Level of Care Code New Pt Level 4 (91362) Diagnoses Bilateral foot pain M79.671; M79.672 Plantar fasciitis of left foot M72.2 Metatarsalgia, right foot M77.41 Calcaneal spur, left foot M77.32 Time Spent (min) 48
--- OUTSIDE RECORDS SUMMARY | 2025-08-10 16:16 | XMS_ITS | Encounter Summary ---
Author Organization [employer] Address [address] [facility] 7t [place] [address] Care Team Providers Care Tag Stringer Name Role Phone Iqra Nelson MD Primary Care Provider + Johnny Casanova PharmD Unavailable [phone] Toñito Caraballo DIAMOND SIZER Unavailable Unavailable Encounter Details Date Type Department Care Team ([facility] Contact Info) Description 09/26/2022 Orders Only [facility] MEDICINE [address] [place] [address] Johnny Casanova, PharmD [address] [place] [address] Social History Tobacco Use Types Packs/Day Years [...] documented as of this encounter Care Teams Tag Stringer Relationship Specialty Start Date End Date Iqra Nelson MD [address] [place] [address] PCP - General Family Medicine 12/05/16 04/08/24 Johnny Casanova, PharmD [address] [place] [phone] Pharmacist Internal Medicine 09/26/22 Toñito Caraballo FNP [address] [place] [address] Nurse Practitioner Family Medicine 08/08/23 documented as of this encounter
--- OUTSIDE RECORDS SUMMARY | 2025-08-10 16:16 | XMS_ITS | Encounter Summary ---
Author Organization [employer] Address [address] [facility] 7[address] [place] [address] Care Team Providers Care Hot Press Operator Name Role Phone Iqra Nelson MD Primary Care Provider + Johnny Casanova PharmD Unavailable [phone] Toñito Caraballo RAILROAD DINING CAR STEWARD/STEWARDESS Unavailable Unavailable Encounter Details Date Type Department Care Team ([facility] st Contact Info) Description 03/08/2023 Abstract [facility] MEDICINE [address] [place] [address] Iqra Nelson MD [address] [place] [address] Social History Tobacco Use Types Packs/Day Years [...] 11:23 AM EDT Vaughn Wise MA * How difficult have these problems made it for you to do your work, take care of things at home, or get along with other people? Answer Date of Assessment Author Very difficult 03/08/2023 11:23 AM Selena Horan MA * Over the past 2 weeks, how often have you been bothered by any of the following problems? Question Answer Date of Assessment Author Little interest or pleasure in doing things Several days 03/08/2023 11:23 AM PRICET Selena Wise MA Feeling down, depressed, or hopeless Several days 03/08/2023 11:23 AM PRICET Vaughn Wise MA Trouble falling or staying asleep, or sleeping too much Nearly every day 03/08/2023 11:23 AM Vaughn Horan MA Feeling tired or having little energy Nearly every day 03/08/2023 11:23 AM Vaughn Horan MA Poor appetite or overeating Several days 03/08/2023 11:23 AM PRICET Vaughn Wise MA Feeling bad about yourself - or [...] way Not at all 03/08/2023 11:23 AM PRICET Escobar Wise MA Patient Health Questionnaire-9 Score 14 03/08/2023 11:23 AM Tari Horan MA documented as of this encounter Plan of Treatment Not on file documented as of this encounter Goals Goal Patient Goal Type Associated Problems Recent Progress Patient-Stated? Author Blood Pressure < 150/90 Blood Pressure 155/76(04/12/2 024 9:13 AM EDT) No Johnny Casanova [...] documented as of this encounter Care Teams Hot Press Operator Relationship Specialty Start Date End Date Iqra Nelson MD [address] [place] [address] PCP - General Family Medicine 12/05/16 04/08/24 Johnny Casanova PharmD [address] [place] [phone] Pharmacist Internal Medicine 09/26/22 Toñito Caraballo FNP [address] [place] [address] Nurse Practitioner Family Medicine 08/08/23 documented as of this encounter
--- OUTSIDE RECORDS SUMMARY | 2025-08-10 16:16 | XMS_ITS | Data Portability ---
Author Organization [place] [facility], Allergy Address [address] [address] Assessment Encounter Date Assessment Date Assessment LastModified by Organization Details LastModified Time 04/21/2024 04/21/2024 63-year-old female with a history of allergic rhinitis presents today for evaluation of her ears, with recurrent infections, tinnitus, and decreased hearing. There is no evidence of infection today. We reviewed aural hygiene. I recommended trying DermOtic oil as needed for the pruritus. I did student success counselor her that a nasal steroid such [...] mcg/actua tion nasal spray,viet pension 2023 024 [id number], [address] [place], [address], 4 15:52:39 DermOtic Oil 0.01 % ear drops 2023 024 [id number], [address] [place], [address], 4 12:15:29 Patient TargetsNo targets recorded. Patient [...] Time Sensorineural hearing loss of bilateral ears 753807143 Active 2023 [place]ER [place] [address] [place] [address], [place], [address], [facility] - [facility] 4 13:52:52 Allergic rhinitis 28853615 Active 2023 ESTELA MONROE MD [address] [place] [address], [place], [phone], [facility] - [facility] 4 15:50:03 Pruritic disorder 654242420 Active 2023 ESTELA MONROE MD [address] [place] [address], [phone], [facility] - [facility] 4 15:50:09 Pruritic disorder of skin Active 2023 ESTELA MONROE MD [address] [place] [address], [place], [address], [facility] - [facility] 4 15:52:00 Problem Notes None recorded. Procedures Surgical History Date Name Laterality Status Provider Name and Address Organization Details Recorded Time 04/21/20 24 Comp Audio with Tymps - 22062 & 13595 completed [facility]ER [place] [address] [facility],[address], [address], [place] [facility] 04/21/2024 13:52:45 tonsillectomy completed ESTELA MONROE MD [address] [place] [address],[address], [address], [place] [facility] 04/28/2024 07:58:20 section completed ESTELA MONROE MD [address] [place] [address], [phone], [place] [facility] 04/28/2024 07:58:28 Imaging Results None recorded. Procedure Notes None recorded. Medical Equipment None Reported. Allergies Allergen ID Allergen Name Allergen Category Reaction Reaction Severity Criticality Documentation Date Start Date Code Code System Note Provider Name and Address Organization Details Recorded Time 332041 aspirin medicatio n Not available Not available Not available 04/21/2024 1191 RxNorm Sabi Potevangelista paige [facility] 4 13:44:51 461946 amoxicill in medicatio n Not available Not available Not available 04/21/2024 723 RxNorm Sabi Potevangelista paige [facility] 4 13:45:02 935054 cultivate d mushroom extract food,medi cation Not available Not available Not available 04/21/2024 50637 17 RxNorm Sabi Potvin grecia, [facility] 4 13:45:09 Medications Name Sig Start [...] Updated DateTime 04/21/2024 149.86 cm 32.1 kg/m2 31374.19 g Sabi Grijalva [place] - [facility] 04/21/2024 15:22:56 Social History None recorded. [...] ICD10 Code Diagnosis IMO Codes Diagnosis Note [id number] ESTELA MONROE MD [facility] [address] [address] 04/21/2024 13:35:47 04/21/2024 15:54:22 Sensorineural hearing loss of bilateral ears [id number] H90.3 Audiologic al evaluation results: Right ear: Normal sloping to moderate sensorineu ral hearing loss with excellent word recognitio n. Left ear: Normal sloping to moderate sensorineu ral hearing loss with excellent word recognitio n. Tympanomet ry: Right Ear:Type A Left Ear:Type A Allergic rhinitis 934476 04 J30.9 Pruritic disorder 680956 002 L29.9 Health Concerns Section Related Observation LastModified by Organization Detai ls LastModified Time None Recorded Concern Status LastModified by Organization Details LastModified Time None Recorded Advance Directives Directive None Recorded Payers Insurance Date Sequence Insurance Name Policy Number Policy Barrow Covered Member ID Barrow Member ID Guarantor Name 04/21/2024 1 [facility] - DOS ON OR AFTER 2022 - [employer] OPT[employer] AND ONE C[employer] (MEDICARE REPLACEMENT/AD VANTAGE - PPO) Yoselin Rodríguez [id number] Yoselin Rodríguez Notes Date Note Type Note [...] several months ago. ESTELA MONROE MD [address] [place] [address], [phone], [facility] - [facility] 04/28/2024 08:02:56 OBGyn Episode No OBEpisode recorded.
--- OUTSIDE RECORDS SUMMARY | 2025-08-10 16:16 | XMS_ITS | Encounter Summary ---
Author Organization [employer] Address [address] [facility] 7t [place] [address] Care Team Providers Care Lumber Sticker Name Role Phone Iqra Nelson MD Primary Care Provider + Johnny Casanova PharmD Unavailable [phone] Toñito Caraballo Unavailable Unavailable Reason for Visit * Reason Comments Med Refill Encounter Details Date Type Department Care Team (Late st Contact Info) Description 07/20/2023 Refill [facility] MEDICINE [address] [place] [address] Toñito Caraballo FNP Social History Tobacco Use [...] as of this encounter Care Teams Lumber Sticker Relationship Specialty Start Date End Date Iqra Nelson MD [address] [place] [address] PCP - General Family Medicine 12/05/16 04/08/24 Johnny Casanova PharmD [address] [place] [address] Pharmacist Internal Medicine 09/26/22 Toñito Caraballo FNP [address] [place] [address] Nurse Practitioner Family Medicine 08/08/23 documented as of this encounter
--- OUTSIDE RECORDS SUMMARY | 2025-08-10 16:16 | XMS_ITS | Encounter Summary ---
Author Organization [employer] Address [address] [facility] [address]t [place] [address] Care Team Providers Care Director Technical Name Role Phone Iqra Nelson MD Primary Care Provider + Johnny Casanova PharmD Unavailable [phone] Toñito Caraballo Unavailable Unavailable Reason for Visit * Reason Comments Med Refill Encounter Details Date Type Department Care Team (Late st Contact Info) Description 04/22/2023 Refill [facility] MEDICINE [address] [place] [phone] Toñito Caraballo FNP Social History Tobacco Use [...] documented as of this encounter Care Teams Director Technical Relationship Specialty Start Date End Date Iqra Nelson MD [address] [place] [address] PCP - General Family Medicine 12/05/16 04/08/24 Johnny Casanova PharmD [address] [place] [address] Pharmacist Internal Medicine 09/26/22 Toñito Caraballo FNP [address] [place] [address] Nurse Practitioner Family Medicine 08/08/23 documented as of this encounter
--- OUTSIDE RECORDS SUMMARY | 2025-08-10 16:16 | XMS_ITS | Encounter Summary ---
Author Organization [employer] Address [address] [facility] 7t [place] [address] Care Team Providers Care Pit Clerk Name Role Phone Iqra Nelson MD Primary Care Provider + Johnny Casanova PharmD Unavailable [phone] Toñito Caraballo HOURLY SHIFT Unavailable Unavailable Encounter Details Date Type Department Care Team ([facility] st Contact Info) Description 02/12/2024 Orders Only [facility] MEDICINE [address] [place] [address] Provider, MD Antoine Social History Tobacco Use [...] documented as of this encounter Care Teams Pit Clerk Relationship Specialty Start Date End Date Iqra Nelson MD [address] [place] [address] PCP - General Family Medicine 12/05/16 04/08/24 Johnny Casanova PharmD [address] [place] [address] Pharmacist Internal Medicine 09/26/22 Toñito Caraballo FNP [address] [place] [address] Nurse Practitioner Family Medicine 08/08/23 documented as of this encounter
--- OUTSIDE RECORDS SUMMARY | 2025-08-10 16:16 | XMS_ITS | Clinical Summary ---
Author Organization [employer] Address [address] [facility] 7t [place] [address] Care Team Providers Care Event Host Name Role Phone Johnny Casanova PharmD Unavailable [phone] Toñito Caraballo SERVICE WORKER HELPER Unavailable Unavailable Allergies Active Allergy Reactions Criticality [...] diets. She wants a referral to the automotive product specialist. Discussed re weight reduction options including exercise, life style modifications, diet, referral to recreational specialist. Discussed re lower calorie intake, increase [...] retiring, so any issues or concerns, contact [facility]. All her questions were answered and [...] EST): Continue estrace cream and fu with PNP. Refill sent to pharmacy. Assessment & Plan (10/09/2022 2:44 PM EST): Most likely secondary to atrophic vaginitis. -use estrogen cream daily x2 weeks and then 3 times per week. Pneumonia due to COVID-19 virus 08/24/2022 Polyp of cervix 08/24/2022 Assessment & Plan (03/26/2023 2:56 PM EDT): s/p resection by PNP, more than a year ago, last PAP was normal refer to PNP second opinion due to persistent dyspareunia Postcoital bleeding 08/24/2022 Assessment & Plan (03/26/2023 3:04 PM EDT): See previous issue and refer to PNP Pruritus 08/24/2022 Right upper quadrant pain 08/24/2022 [...] q2wk + albuterol PRN and FU w/ hired hand Decline flue and Covid IZ today, advised [...] Date Resolved Date Pulmonary embolism 11/27/2018 4 Immunizations Immunization Administration Dates Next Due Moderna [...] Years (1 of 2 - PCV) 1979 RSV Patients and Patients Aged 60 years or older (1 - Risk 50-74 years 1-dose series) 2010 Zoster Vaccines (1 of 2) 2010 Dental Oral Exam 04/12/2023 10/12/2022 Mammogram 04/21/2023 [...] Procedure Name Priority Date/Time Associated Diagnosis Comments LIPID PANEL WITH REFLEX TO DIRECT LDL [...] Recently Relevant to Health Maintenance Results * Lipid Panel with Reflex to Direct LDL (11/08/2023 12:00 AM EST) Triglycerides 128 <150 mg/dL [facility] Comment:Desirable Triglyceri de: less than 150 mg/dLBorderline High Triglyceride 150-199 mg/dLHigh Triglyceride: 200-499 mg/dLVery High Triglyceride: greater than or equal to 5OO mg/dL Cholesterol 169 <200 mg/dL [facility] Comment:Desirable Cholestero l: less than 200 mg/dLBorderline High Cholesterol: 200-239 mg/dLHigh Cholesterol: greater than 239 mg/dL LDL Cholesterol Calculated 82 <100 mg/dL [facility] Comment:Desirable LDL: less than 100 mg/dLNear Optimal/Above Optimal LDL: 110- 129 mg/dLBorderline High LDL: 130-159 mg/dLHigh LDL: 160-189 mg/dLVery High LDL: greater than or equal to 190 mg/dL HDL Cholesterol 62 >40 mg/dL [facility] Comment:Desirable HDL: great er than 40 mg/dL Note: This HDL assay may give artificially low results in patients with liver disease. Blood 11/08/2023 11/08/2023 Iqra Nelson MD LAB BLOOD ORDERABLES Fin al Result [facility] [address] [place] [phone] * HPV mRNA E6/E7 w/Reflex to HPV Genotypes 16, 18/45 (05/31/2023 1:12 PM EDT) HPV nRNA E6/E7 Not Detected Not Detected [facility] Comment:Methodology: Transcr iption-Mediated AmplificationThis assay detects E6/E7 viral messenger RNA (mRNA) from 14high-risk HPV types (16,18,31,33,35,39,45,51,52,56,58,59,66,68).Cervical sources are required for HPV testing.If a vaginal source from a patient who has had atotal hysterectomy with removal of cervix wassubmitted, please contact the testing laboratoryfor alternative testing options.For additional information, please refer [email or web address]/faq/OZN963c3(This link if provided for information/educational purposes only.)THIS TEST WAS PERFORMED AT:[facility] [place] [phone] HARRISON MD HPV mRNA E6/E7 [facility] HPV 16 RNA [facility] HPV 18/45 RNA TNP [facility] 05/31/2023 1:12 PM EDT 06/01/2023 9:00 AM EDT us [facility] External Provider LAB CYT OLOGY ORDERABLES Final Result [facility] [address] [place] [phone] * Pap Smear (05/31/2023 1:12 PM EDT) 05/31/2023 1:12 PM EDT 06/01/2023 9:00 AM EDT Narrative [facility] - 06/12/2023 1:57 PM EDT ----- ------- Name: Yoselin Rodríguez Age/Sex: 62/F : 1960 Unit#: [id number] Attend Dr: Ale Francisco CNM Re05/31/23 Status: DEP REF Location: [facility] Disch: ----- ------- SPEC : [id number] RECD: 06/01/23 STATUS: BLAYNE BLAIR NUM: [id number] AGATHA: 05/31/23-[address] [facility] [address]: Ale Francisco CNM ENTERED: 06/01/23-1102 SP TYPE: Pap Smr OTHR DR: Iqra [...] 59, 66, 68) HPV testing performed by [facility], [place], [place]. See reference laboratory portion of the EMR for entire report. Clinical Information LMP: No menses Previous PAP test: 07/19/21, abnormal Other history: +HPV, personal history of other infectious and parasitic diseases Material Received ThinPrep-Cervical Copies To: Iqra Nelson MD [address] [place] [phone] Lee [address] [place] [phone] ----- ------- Signed (signature on file) Yajaira Dash 06/12/23 1357 ----- ------- END OF REPORT [facility] External Provider LAB CYT KIRSTIE ORDERABLES Final Result [facility] [address] [place] [phone] * Mammography Report 1 (04/21/2021 1:15 [...] MD IMG BI PROCEDURES Final Result * Colonoscopy (03/04/2018 8:58 AM EDT) Colonoscopy Normal Normal Narrative Claudia Cam - 03/04/2018 8:58 AM EDT Recommended 10 year follow up Antoine Provider HEALTH MAINTENANCE Final Result from Last 3 Months or Most Recently Relevant to Health Maintenance Insurance [facility] ONE CARE < 65 [place] [id number] [facility] Care Teams Event Host Relationship Specialty Start Date End Date Johnny Casanova, RachelD [address] [place] [address] Pharmacist Internal Medicine 09/26/22 Toñito Caraballo FNP [address] [place] [address] Nurse Practitioner Family Medicine 08/08/23
--- OUTSIDE RECORDS SUMMARY | 2025-08-10 16:16 | XMS_ITS | Encounter Summary ---
Author Organization [employer] Address [address] [facility] 7t [place] [address] Care Team Providers Care Legal Editor Name Role Phone Iqra Nelson MD Primary Care Provider + Johnny Casanova PharmD Unavailable [phone] Toñito Caraballo Unavailable Unavailable Reason for Visit * Reason Comments Med Refill Encounter Details Date Type Department Care Team (Late st Contact Info) Description 02/26/2023 Refill [facility] [address] [place] [address] Toñito Caraballo FNP Major depressive disorder, recurrent, [...] documented as of this encounter Care Teams Legal Editor Relationship Specialty Start Date End Date Iqra Nelson MD [address] [place] [phone] PCP - General Family Medicine 12/05/16 04/08/24 Johnny Casanova PharmD [address] [place] [phone] Pharmacist Internal Medicine 09/26/22 Toñito Caraballo FNP [address] [place] [address] Nurse Practitioner Family Medicine 08/08/23 documented as of this encounter
--- OUTSIDE RECORDS SUMMARY | 2025-08-10 16:16 | XMS_ITS | Encounter Summary ---
Author Organization [employer] Address [address] [facility] 7t [place] [address] Care Team Providers Care Fuel Operator Name Role Phone Iqra Nelson MD Primary Care Provider + Johnny Casanova PharmD Unavailable [phone] Toñito Caraballo Unavailable Unavailable Reason for Visit * Reason Comments Med Refill Encounter Details Date Type Department Care Team ([facility] st Contact Info) Description 02/21/2023 Refill [facility] [address] [place] [phone] Toñito Caraballo FNP Social History Tobacco Use [...] documented as of this encounter Care Teams Fuel Operator Relationship Specialty Start Date End Date Iqra Nelson MD [address] [place] [address] PCP - General Family Medicine 12/05/16 04/08/24 Johnny Casanova PharmD [address] [place] [address] Pharmacist Internal Medicine 09/26/22 Toñito Caraballo FNP [address] [place] [address] Nurse Practitioner Family Medicine 08/08/23 documented as of this encounter
--- OUTSIDE RECORDS SUMMARY | 2025-08-10 16:16 | XMS_ITS | Encounter Summary ---
Author Organization [employer] Address [address] [facility] [address]t [place] [address] Care Team Providers Care Electronic Equipment Maint Tech Name Role Phone Iqra Nelson MD Primary Care Provider + Johnny Casanova PharmD Unavailable [phone] Toñito Caraballo Unavailable Unavailable Reason for Visit * Reason Onset Date Comments Med Refill Appointment 10/11/2023 LVM-Re: her apt for today as [id number] @2pm Encounter Details Date Type Department Care Team (Late st Contact Info) Description 10/11/2023 Refill [facility] [address] [place] [address] Toñito Caraballo FNP Social History Tobacco Use [...] documented as of this encounter Care Teams Electronic Equipment Maint Tech Relationship Specialty Start Date End Date Iqra Nelson MD [address] [place] [address] PCP - General Family Medicine 12/05/16 04/08/24 Johnny Casanova PharmD [address] [place] [phone] Pharmacist Internal Medicine 09/26/22 Toñito Caraballo FNP [address] [place] [phone] Nurse Practitioner Family Medicine 08/08/23 documented as of this encounter
--- OUTSIDE RECORDS SUMMARY | 2025-08-10 16:16 | XMS_ITS | Encounter Summary ---
Author Organization [employer] Address [address] [facility] 7t [place] [address] Care Team Providers Care Animal Anatomist Name Role Phone Iqra Nelson MD Primary Care Provider + Johnny Casanova PharmD Unavailable [phone] Toñito Caraballo MID LEVEL DEVELOPER Unavailable Unavailable Encounter Details Date Type Department Care Team ([facility] st Contact Info) Description 10/10/2022 Orders Only [facility] [address] [place], [place] [phone] Iqra Nelson MD [address] [place], [place] [phone] Vitamin D deficiency (Primary Dx); Senile osteoporosis [...] documented as of this encounter Care Teams Animal Anatomist Relationship Specialty Start Date End Date Iqra Nelson MD [address] [place] [phone] PCP - General Family Medicine 12/05/16 04/08/24 Johnny Casanova, Ti [address] [place] [address] Pharmacist Internal Medicine 09/26/22 Toñito Caraballo FNP [address] [place] [address] Nurse Practitioner Family Medicine 08/08/23 documented as of this encounter
--- OUTSIDE RECORDS SUMMARY | 2025-08-10 16:16 | XMS_ITS | Clinical Summary ---
Author Organization [facility] Address [address] [place] [phone] Phone Care Team Providers Care Bench Press Operator Name Role Phone Iqra Nelson [...] file Medical Devices Not on file Insurance [facility] MEDICARE PART A & B [place] PART A & [facility] & [place] A & B Care Teams Bench Press Operator Relationship Specialty Start Date End Date Iqra Nelson MD [address] [place] [address] [address] [place] [phone] PCP - General Internal Medicine 10/19/20 Additional Source Comments The information contained in this document represents components of the legal health record. It is not the complete legal health record.[facility]
--- OUTSIDE RECORDS SUMMARY | 2025-08-10 16:16 | XMS_ITS | Encounter Summary ---
Author Organization [employer] Address [address] [facility] [address] [place] [address] Care Team Providers Care Chief Inspector Name Role Phone Iqra Nelson MD Primary Care Provider + Johnny Casanova PharmD Unavailable [phone] Toñito Caraballo Unavailable Unavailable Reason for Visit * Reason Comments Med Refill Encounter Details Date Type Department Care Team (Late st Contact Info) Description 12/28/2022 Refill [facility] [address] [place] [address] Toñito Caraballo FNP Major depressive disorder, recurrent, [...] documented as of this encounter Care Teams Chief Inspector Relationship Specialty Start Date End Date Iqra Nelson MD [address] [place] [phone] PCP - General Family Medicine 12/05/16 04/08/24 Johnny Casanova PharmD [address] [place] [phone] Pharmacist Internal Medicine 09/26/22 Toñito Caraballo FNP [address] [place] [address] Nurse Practitioner Family Medicine 08/08/23 documented as of this encounter
== END 2025-08-10 13:26 | disposition home or self-care (01) ==
LOC: HO.HPODS 12:15
PROVIDERS: PCP Internal Medicine; Visit Provider Student in an Organized Health Care Education/Training Program
DX: M79.671 Pain in right foot (principal); M79.672 Pain in left foot; M72.2 Plantar fascial fibromatosis; M77.41 Metatarsalgia, right foot; M77.32 Calcaneal spur, left foot
CPT/HCPCS: 99204

== ENCOUNTER → 2025-08-10 12:14 | Outpatient (BNVA) | payer OTHER, SELFPAY | PROVIDERS: PCP Internal Medicine; Visit Provider Student in an Organized Health Care Education/Training Program | DX: M72.2 Plantar fascial fibromatosis (principal); M77.41 Metatarsalgia, right foot; M77.32 Calcaneal spur, left foot | CPT/HCPCS: 99202 ==

== ENCOUNTER 2025-08-12 13:03 | Outpatient (AMB) | payer OTHER, SELFPAY ==
[2025-08-12 13:17] VITALS: BP 142/82; PULSE 72; TEMP 36.3; O2SAT 98; BMI 33.4
--- NOTE | 2025-08-12 13:17 | MHC.PC.OV ---
Vital Signs 08/12/25 13:17 Height 4 ft 11 in Weight 165 lb 8 oz BMI 33.4 BP 142/82 H Blood Pressure Location Lt brachial Position Sitting Pulse 72 Pulse Source Pulse Oximeter Temp 97.3 F Temp Source Temporal Artery Scan Pulse Oximetry (%) 98 Oxygen Delivery Method Room Air Intake Visit Reasons: bp Mule Developer Required: No Accompanied by: Self / Same As Patient Allergies cephalexin Allergy (Severe, Verified 08/12/25 13:36) Rash seafood Allergy (Severe, Verified 08/12/25 13:36) Anaphylaxis vancomycin (VANCOMYCIN) Allergy (Severe, Verified 08/12/25 13:36) ANAPHYLAXIS, hives aspirin (ASPIRIN) Allergy (Intermediate, Verified 08/12/25 13:36) rash, asthma codeine (CODEINE) Allergy (Mild, Verified 08/12/25 13:36) rash egg (EGGS) Allergy (Mild, Verified 08/12/25 13:36) VOMITING peanut (PEANUTS) Allergy (Mild, Verified 08/12/25 13:36) HIVES,DIARRHEA amoxicillin (From Augmentin) Allergy (Verified 08/12/25 13:36) hives, swelling, difficulty breathing clavulanic acid (From Augmentin) Allergy (Verified 08/12/25 13:36) hives, swelling mushroom Allergy (Verified 08/12/25 13:36) Rash lactose Adverse Reaction (Intermediate, Verified 08/12/25 13:36) diarrhea cepha mixlexin Allergy (Intermediate, Uncoded 08/12/25 13:36) racing heart, rash Medication List - Last Reconciled 08/12/25 by Iqra Lawrence MD acetaminophen (Tylenol Extra Strength) 500 mg PO Q6H PRN 30 days albuterol sulfate 90 mcg/actuation 90 mcg inhalation DAILY albuterol sulfate 2.5 mg (3 mL) inhalation TID PRN calcium carbonate 600 mg PO BID 90 days chlorthalidone 25 mg PO DAILY 90 days cyclobenzaprine 5 mg PO BEDTIME denosumab (Prolia) 60 mg subcut [id number] dicyclomine 20 mg PO QID dupilumab (Dupixent) 200 mg (1.14 mL) subcut Q2W ergocalciferol (vitamin D2) 1,250 mcg PO QWEEK 90 days estradiol 0.01%(0.1mg/gram) 1 g vaginal DAILY 30 days hydroxyzine HCl 25 mg PO DAILY lisinopril 40 mg PO DAILY 90 days lorazepam 1 mg PO DAILY PRN melatonin 3 mg PO BEDTIME methylprednisolone (Medrol (Chetan)) PO PER PKG DIR omeprazole 40 mg PO BID ondansetron 4 mg sublingual Q8H PRN Saccharomyces boulardii (Digest Probiotic (S.boulardii)) PO DAILY sucralfate (Carafate) M,W,F only in am orally 2 times a day; sumatriptan succinate 50 mg PO DAILY PRN Symbicort 160-4.5 mcg/actuation (budesonide-formoterol) 2 puffs PO BID NS trazodone 50 mg PO BEDTIME Tobacco use date assessed: 08/12/25 Fall risk assessment: No Falls in past year Last assessed Fall Risk: 08/12/25 Dental Screening Dental Screen Date: 08/12/25 Did you have a dental visit in the last 12 months?: No Did you have a dental problem in the last 6 months where you did not have access to dental care?: No Was dental information given to patient?: No HPI HPI Comments History of Present Illness Details The patient is a 64 year old individual presenting for follow-up for hypertension management and medication review. The patient reports recent blood pressure readings have been elevated, around 140 systolic. Current medications for hypertension are lisinopril 40 mg and chlorthalidone 25 mg, and the patient reports drowsiness with chlorthalidone. The patient has an extensive history of allergies, including keflex, seafood, vancomycin, aspirin, codeine, eggs, peanuts, Augmentin, and mushrooms. The patient also reports lactose intolerance, which causes diarrhea. Other chronic conditions include osteoporosis treated with Prolia every six months, asthma managed with Symbicort, and allergies treated with Dupixent. The patient takes dicyclomine and omeprazole for stomach issues, sumatriptan as needed for migraines, and cyclobenzaprine for muscle relaxation. For sleep, the patient uses trazodone and melatonin, and for panic attacks, which can elevate blood pressure, the patient uses lorazepam as needed. Recently, the patient saw a insulation board back tender for a foot issue and was prescribed anti-inflammatory medication and custom orthotics. [facility] Medical History Calcaneal spur, left foot Bilateral foot pain Plantar fasciitis of left foot Metatarsalgia, right foot Physical exam Urinary pain Rotator cuff tendonitis Chest pain Diarrhea Dyspnea on exertion History of pulmonary embolism Encounter for screening examination for sexually transmitted disease Women's annual routine gynecological examination Abdominal bloating Acute diarrhea COVID-19 Pulmonary embolism Pulmonary embolism Vaginal itching Hx of human papillomavirus infection Candidiasis of mouth and esophagus Abdominal cramping Pneumonia Bile salt-induced diarrhea History of pilonidal cyst Gastritis IBS (irritable bowel syndrome) Hypertension Pre-eclampsia Irritable bowel syndrome with both constipation and diarrhea Gallstones Surgical History H/O cervical polypectomy Hx of esophagogastroduodenoscopy H/O colonoscopy History of surgical removal of pilonidal cyst S/P tonsillectomy History of section History of cholecystectomy Family History Father Heart attack GERD (gastroesophageal reflux disease) Peptic ulcer disease Mother CHF (congestive heart failure) Afib Diverticulitis History of bowel resection Hypothyroid COVID-19 Maternal Aunt Diabetes Maternal Uncle Cancer Maternal Grandmother Cancer Brother Mental health disorder Social History Household Members: Spouse Housing: Apartment Are you a primary healthcare associate to a significant other at home: No Do you presently have visiting nurse or other home services: Yes (phone visits) Alcohol intake: former Patient Tobacco Use Status: Never used Tobacco e-Cigarette/Vaping Use: Never Used Second Hand Smoke Exposure: No service: No Current occupational status: retired Cognitive needs: No Hearing needs: No Vision needs: No Female Reproductive History Menstrual Age of Menarche: 10 Questionnaire PHQ-9 Over the last 2 weeks, how often have you been bothered by any of the following problems? 1. Little interest or pleasure in doing things: several days 2. Feeling down, depressed, or hopeless: several days 3. Trouble falling or staying asleep, or sleeping too much: several days 4. Feeling tired or having little energy: several days 5. Poor appetite or overeating: several days 6. Feeling bad about yourself - or that you are a failure or have let yourself or your family down: several days 7. Trouble concentrating on things, such as reading the newspaper or watching television: several days 8. Moving or speaking so slowly that other people could have noticed. Or the opposite - being so fidgety or restless that you have been moving around a lot more than usual: several days 9. Thoughts that you would be better off or of hurting yourself in some way: not at all Total score: 8 Depression Screening Interpretation: Positive Depression Screening Follow-up: Existing condition, In treatment, Community Mental Health Worker F/U and Follow-up Visit Requested Depression Screening Done: Yes 60768 - PHQ-9 Billing: Yes Source: Developed by Drs. Mehran Win, Maddy Rapp, Toni Dorantes and colleagues, with an educational cody from [employer]. Thrive Questionnaire Date Thrive assessed: 04/08/25 I am a: Patient What is your living situation today?: I have a steady place to live Within the past 12 months, did the food you bought not last and you didn't have the money to get more?: Sometimes True Within the past 12 months, did you worry whether your food would run out before you got money to buy more?: Often true Do you have trouble paying for medicines?: No Do you have trouble getting transportation to medical appointments?: No Do you have trouble paying your heating and electricity bill?: No Do you have trouble taking care of your child, family member or friend?: No Do you have trouble with day-to-day activities such as bathing, preparing meals, shopping, managing finances, etc.?: No Are you currently unemployed and looking for a job?: No Are you interested in more education?: No Please select the resources that you would like help with: Housing/Fpc Currently or been in a relationship where the following occur: No concerns reported THRIVE Score: 2 AUDIT C Alcohol Use Questionnaire (AUDIT-C) 1. How often do you have a drink containing alcohol?: Never 3. How often do you have six or more drinks on one occasion?: Never Total Score: 0 Score Reviewed/Action Taken: No JESSICA-7 AMB Questionnaire JESSICA-7 Date JESSICA - 7 assessed: 04/08/25 Feeling nervous, anxious, or on edge: 1 = Several days Not being able to stop or control worryin = Several days Worrying too much about different things: 1 = Several days Trouble relaxin = Several days Being so restless that it is hard to sit still: 1 = Several days Becoming easily annoyed or irritable: 1 = Several days Feeling afraid as if something awful might happen: 1 = Several days Total JESSICA-7 score (0-4 normal; 5-9 mild; 10-14 moderate; 15-21 severe): 7 Source: Developed by Drs. Mehran Win, Maddy Rapp, Toni Dorantes and colleagues, with an educational cody from [employer]. JESSICA-7 Assessment Billing JESSICA-7 Assessment Tool: JESSICA-7 Assessment 72241 Review of Systems Const All systems reviewed & are unremarkable except as noted in HPI and below Card Denies chest pain at rest, Denies chest pain with activity, Denies edema, Denies irregular heart rhythm, Denies claudication, Denies dyspnea, Denies dyspnea on exertion, Denies orthopnea, Denies paroxysmal nocturnal dyspnea and Denies slow heart rate Resp Denies cough, Denies dyspnea and Denies dyspnea on exertion GI Denies abdominal pain, Denies change in bowel habits, Denies excessive flatus, Denies nausea and Denies vomiting Physical exam (Primary Care) Vital Signs: Last Vital Signs Temp 97.3 F 08/12/25 13:17 Pulse 72 08/12/25 13:17 BP 142/82 H 08/12/25 13:17 Pulse Ox 98 08/12/25 13:17 Oxygen Delivery Method Room Air 08/12/25 13:17 BMI result Body Mass Index 33.4 BMI Assessment/Plan discussion: High BMI High, discussed plan: lifestyle, weight reduction, dietary and physical activity Tobacco/Smoking Status: Tobacco use Status Tobacco use date assessed 08/12/25 08/12/25 13:22 Patient Tobacco Use Status Never used Tobacco 08/12/25 13:22 e-Cigarette/Vaping Use Never Used 08/12/25 13:22 PHQ-9: PHQ-9 Score PHQ-9: Total score 8 08/12/25 13:43 Depression Screening Interpretation: Positive Depression Screening Follow-up: Existing condition, In treatment, Community Mental Health Worker F/U and Follow-up Visit Requested Thrive Assessment: Date of Thrive Assessment Date Thrive assessed 04/08/25 08/12/25 13:22 Currently or been in a relationship where the following occur: No concerns reported Resp Effort & Inspection: normal respiratory effort Auscultation: clear to auscultation bilaterally Cardio Jugular venous distension: no JVD Rate: regular rate Rhythm: regular rhythm Heart sounds: S1 normal heart sound present and S2 normal heart sound present Extrem General: Yes full ROM Coding Level of Care Code Est Pt Level 3 (35688) Diagnoses HTN (hypertension), benign I10 Osteoporosis without current pathological fracture, unspecified osteoporosis type M81.0 Osteoporosis type: unspecified Presence of current pathological fracture: without current pathological fracture Mucopurulent chronic bronchitis J41.1 Additional Codes JESSICA-7 Assessment Billing - JESSICA-7 Assessment Tool: JESSICA-7 Assessment 10417 ([id number]) PHQ-9 - 00066 - PHQ-9 Billing: Yes ([id number]) Time Spent (min) 18 Assessment & Plan Assessment & Plan (1) HTN (hypertension), benign: Code(s): I10 - Essential (primary) hypertension Category: Medical (2) Osteoporosis: Comment: DEXA 10/2022: AP Spine -3.3, Left femur neck -2.3, Left femur total -2.6 DEXA 10/2024: AP Spine -2.8, Left femur neck -2.3, Left femur total -2.5 PO Alendronate - dizziness IV Reclast 02/2024, complained of jaw pain x 2 weeks. No longer wishes to continue Prolia 12/2024 Risk factors: steroid use for her asthma Code(s): M81.0 - Age-related osteoporosis without current pathological fracture Category: Medical Qualifiers: Osteoporosis type: unspecified Presence of current pathological fracture: without current pathological fracture Qualified Code(s): M81.0 - Age-related osteoporosis without current pathological fracture (3) Mucopurulent chronic bronchitis: Code(s): J41.1 - Mucopurulent chronic bronchitis Category: Medical Plan Plan 1. Essential Hypertension The patient's blood pressure is elevated, with recent home readings in the 140s on a regimen of lisinopril and chlorthalidone. Due to reported drowsiness with chlorthalidone, this medication will be discontinued. Verapamil, a calcium channel pedro, will be initiated at the lowest dose. The patient will continue lisinopril 40 mg. For acute blood pressure elevations to 160 mmHg, the patient is instructed to take one of the remaining chlorthalidone 25 mg tablets as needed. 2. Panic Disorder The patient reports using lorazepam as needed for panic attacks, which can precipitate blood pressure elevations. Continue current management with lorazepam as needed. 3. Osteoporosis The patient is being treated for osteoporosis. Continue Prolia injections every six months as prescribed. 4. Asthma The patient has a history of asthma. Continue Symbicort as prescribed for asthma management. 5. Migraine The patient has a history of migraines. Continue sumatriptan as needed for acute migraine headaches. Medications: New verapamil ER 120 mg PO DAILY 90 caps 0RF 90 days Discontinued chlorthalidone Discontinued Reason: Patient Completed Course 25 mg PO DAILY 90 days 90 tabs 1RF
--- OUTSIDE RECORDS SUMMARY | 2025-08-12 16:07 | XMS_ITS | Encounter Summary ---
Author Organization [employer] Address [address] [facility] [address]t [place] [address] Care Team Providers Care Computer Network Engineer Name Role Phone Iqra Nelson MD Primary Care Provider + Johnny Casanova PharmD Unavailable [phone] Toñito Caraballo Unavailable Unavailable Reason for Visit * Reason Onset Date Comments Med Refill Appointment 10/11/2023 LVM-Re: her apt for today as [id number] @2pm Encounter Details Date Type Department Care Team (Late st Contact Info) Description 10/11/2023 Refill [facility] MEDICINE [address] [place] [address] Toñito Caraballo FNP Social History Tobacco Use [...] documented as of this encounter Care Teams Computer Network Engineer Relationship Specialty Start Date End Date Iqra Nelson MD [address] [place] [phone] PCP - General Family Medicine 12/05/16 04/08/24 Johnny Casanova PharmD [address] [place] [phone] Pharmacist Internal Medicine 09/26/22 Toñito Caraballo FNP [address] [place] [phone] Nurse Practitioner Family Medicine 08/08/23 documented as of this encounter
--- OUTSIDE RECORDS SUMMARY | 2025-08-12 16:07 | XMS_ITS | Clinical Summary ---
Author Organization [employer] Address [address] [facility] [address]t [place] [address] Care Team Providers Care Building Carpenter Name Role Phone Johnny Casanova PharmD Unavailable [phone] Toñito Caraballo GUN NUMBER Unavailable Unavailable Allergies Active Allergy Reactions Criticality [...] diets. She wants a referral to the microfilm processor. Discussed re weight reduction options including exercise, life style modifications, diet, referral to vehicle care specialist. Discussed re lower calorie intake, increase [...] any issues or concerns, contact [facility]. All her questions were answered and [...] EST): Continue estrace cream and fu with GEOSPATIAL TECHNICIAN. Refill sent to pharmacy. Assessment & Plan (10/09/2022 2:44 PM EST): Most likely secondary to atrophic vaginitis. -use estrogen cream daily x2 weeks and then 3 times per week. Pneumonia due to COVID-19 virus 08/24/2022 Polyp of cervix 08/24/2022 Assessment & Plan (03/26/2023 2:56 PM EDT): s/p resection by GEOSPATIAL TECHNICIAN, more than a year ago, last PAP was normal refer to GEOSPATIAL TECHNICIAN second opinion due to persistent dyspareunia Postcoital bleeding 08/24/2022 Assessment & Plan (03/26/2023 3:04 PM EDT): See previous issue and refer to GEOSPATIAL TECHNICIAN Pruritus 08/24/2022 Right upper quadrant pain 08/24/2022 [...] q2wk + albuterol PRN and FU w/ strong nitric operator Decline flue and Covid IZ today, [...] 12:00 AM EST) Triglycerides 128 <150 mg/dL [facility] Comment:Desirable Triglyceri de: less than 150 mg/dLBorderline High Triglyceride 150-199 mg/dLHigh Triglyceride: 200-499 mg/dLVery High Triglyceride: greater than or equal to 5OO mg/dL Cholesterol 169 <200 mg/dL [facility] Comment:Desirable Cholestero l: less than 200 mg/dLBorderline High Cholesterol: 200-239 mg/dLHigh Cholesterol: greater than 239 mg/dL LDL Cholesterol Calculated 82 <100 mg/dL [facility] Comment:Desirable LDL: less than 100 mg/dLNear Optimal/Above Optimal LDL: 110- 129 mg/dLBorderline High LDL: 130-159 mg/dLHigh LDL: 160-189 mg/dLVery High LDL: greater than or equal to 190 mg/dL HDL Cholesterol 62 >40 mg/dL [facility] Comment:Desirable HDL: great er than 40 mg/dL Note: This HDL assay may give artificially low results in patients with liver disease. Blood 11/08/2023 11/08/2023 Iqra Nelson MD LAB BLOOD ORDERABLES Fin al Result [facility] [address] [place] [phone] * HPV mRNA E6/E7 w/Reflex to HPV Genotypes 16, 18/45 (05/31/2023 1:12 PM EDT) HPV nRNA E6/E7 Not Detected Not Detected [facility] Comment:Methodology: Transcr iption-Mediated AmplificationThis assay detects E6/E7 viral messenger RNA (mRNA) from 14high-risk HPV types (16,18,31,33,35,39,45,51,52,56,58,59,66,68).Cervical sources are required for HPV testing.If a vaginal source from a patient who has had atotal hysterectomy with removal of cervix wassubmitted, please contact the testing laboratoryfor alternative testing options.For additional information, please refer [email or web address].[employer]/faq/AYK797l2(This link if provided for information/educational purposes only.)THIS TEST WAS PERFORMED AT:[facility] [place] [phone] HARRISON MD HPV mRNA E6/E7 [facility] HPV 16 RNA [facility] HPV 18/45 RNA TNP [facility] 05/31/2023 1:12 PM EDT 06/01/2023 9:00 AM EDT us [facility] External Provider LAB CYT OLOGY ORDERABLES Final Result [facility] [address] [place] [phone] * Pap Smear (05/31/2023 1:12 PM EDT) 05/31/2023 1:12 PM EDT 06/01/2023 9:00 AM EDT Narrative [facility] - 06/12/2023 1:57 PM EDT ----- ------- Name: Yoselin Rodríguez Age/Sex: 62/F : 1960 Unit#: [id number] Attend Dr: Ale Francisco CNM Re05/31/23 Status: DEP REF Location: [facility] Disch: ----- ------- SPEC : [id number] RECD: 06/01/23 STATUS: BLAYNE BLAIR NUM: [id number] AGATHA: 05/31/23-[address] [facility] [address]: Ale Francisco CNM ENTERED: 06/01/23-1102 [...] 59, 66, 68) HPV testing performed by [facility], [place], [place]. See reference laboratory portion of the EMR for entire report. Clinical Information LMP: No menses Previous PAP test: 07/19/21, abnormal Other history: +HPV, personal history of other infectious and parasitic diseases Material Received ThinPrep-Cervical Copies To: Iqra Nelson MD [address] [place] [phone] [address] Lee [address] [place] [id number] ----- ------- Signed (signature on file) Yajaira Dash 06/12/23 1357 ----- ------- END OF REPORT [facility] External Provider LAB CYT KIRSTIE ORDERABLES Final Result [facility] [address] [place] [phone] [phone] * Mammography Report 1 (04/21/2021 1:15 [...] Most Recently Relevant to Health Maintenance Insurance [facility] < [address] [place] [id number] [facility] Care Teams Building Carpenter Relationship Specialty Start Date End Date Johnny Casanova, RachelD [address] [place] [address] Pharmacist Internal Medicine 09/26/22 Toñito Caraballo FNP [address] [place] [address] Nurse Practitioner Family Medicine 08/08/23
--- OUTSIDE RECORDS SUMMARY | 2025-08-12 16:07 | XMS_ITS | Encounter Summary ---
Author Organization [employer] Address [address] [facility] 7t [place] [address] Care Team Providers Care Heavy Mobile Equipment Operator Name Role Phone Iqra Nelson MD Primary Care Provider + Johnny Casanova PharmD Unavailable [phone] Toñito Caraballo WELDER TECH Unavailable Unavailable Encounter Details Date Type Department Care Team ([facility] st Contact Info) Description 02/12/2024 Orders Only [facility] MEDICINE [address] [place] [address] Provider, MD Antoine Social History Tobacco Use [...] documented as of this encounter Care Teams Heavy Mobile Equipment Operator Relationship Specialty Start Date End Date Iqra Nelson MD [address] [place] [phone] PCP - General Family Medicine 12/05/16 04/08/24 Johnny Casanova PharmD [address] [place] [phone] Pharmacist Internal Medicine 09/26/22 Toñito Caraballo FNP [address] [place] [phone] Nurse Practitioner Family Medicine 08/08/23 documented as of this encounter
--- OUTSIDE RECORDS SUMMARY | 2025-08-12 16:08 | XMS_ITS | Encounter Summary ---
Author Organization [email or web address] Address [address] [facility] 7t [place] [address] Care Team Providers Care It Architecture Consultant Name Role Phone Iqra Nelson MD Primary Care Provider + Johnny Casanova PharmD Unavailable [phone] Toñito Caraballo MATCHER OFFBEARER Unavailable Unavailable Encounter Details Date Type Department Care Team ([facility] Contact Info) Description 09/26/[address] [facility] MEDICINE [address] [place] [address] Johnny Casanova, PharmD [address] [place] [address] Social History Tobacco Use Types Packs/Day Years [...] documented as of this encounter Care Teams It Architecture Consultant Relationship Specialty Start Date End Date Iqra Nelson MD [address] [place] [address] PCP - General Family Medicine 12/05/16 04/08/24 Johnny Casanova, PharmD [address] [place] [phone] Pharmacist Internal Medicine 09/26/22 Toñito Caraballo FNP [address] [place] [phone] Nurse Practitioner Family Medicine 08/08/23 documented as of this encounter
--- OUTSIDE RECORDS SUMMARY | 2025-08-12 16:08 | XMS_ITS | Encounter Summary ---
Author Organization [employer] Address [address] [facility] 7t [place] [address] Care Team Providers Care Manager Mass Name Role Phone Iqra Nelson MD Primary Care Provider + Johnny Casanova PharmD Unavailable [phone] Toñito Caraballo ORGAN ASSEMBLER Unavailable Unavailable Encounter Details Date Type Department Care Team ([facility] st Contact Info) Description 10/10/2022 Orders Only [facility] MEDICINE [address] [place], [place] [phone] Iqra Nelson MD [address] [place], [place] [phone] Vitamin D deficiency (Primary Dx); Senile osteoporosis [...] as of this encounter Care Teams Manager Mass Relationship Specialty Start Date End Date Iqra Nelson MD [address] [place] [phone] PCP - General Family Medicine 12/05/16 04/08/24 Johnny Casnaova, Ti [address] [place] [phone] Pharmacist Internal Medicine 09/26/22 Toñito Caraballo FNP [address] [place] [phone] Nurse Practitioner Family Medicine 08/08/23 documented as of this encounter
--- OUTSIDE RECORDS SUMMARY | 2025-08-12 16:08 | XMS_ITS | Clinical Summary ---
Author Organization [facility] Address [address] [place] [address] Phone Care Team Providers Care Passenger Tire Builder Name Role Phone Iqra Nelson MD Primary [...] file Medical Devices Not on file Insurance [facility] MEDICARE PART A & B [place] & [facility] & [place] & [place] A & B Care Teams Passenger Tire Builder Relationship Specialty Start Date End Date Iqra Nelson MD [address] [place] [address] [address] [place] [address] PCP - General Internal Medicine 10/19/20 Additional Source Comments The information contained in this document represents components of the legal health record. It is not the complete legal health record.[facility]
--- OUTSIDE RECORDS SUMMARY | 2025-08-12 16:08 | XMS_ITS | Encounter Summary ---
Author Organization [employer] Address 75 [facility] 7t [place] [address] Care Team Providers Care Physical Plant Manager Name Role Phone Iqra Nelson MD Primary Care Provider + Johnny Casanova PharmD Unavailable [phone] Toñito Caraballo Unavailable Unavailable Reason for Visit * Reason Comments Med Refill Encounter Details Date Type Department Care Team (Late st Contact Info) Description 07/20/2023 Refill [facility] MEDICINE [address] [place] [address] Toñito Caraballo FNP Social History Tobacco Use [...] documented as of this encounter Care Teams Physical Plant Manager Relationship Specialty Start Date End Date Iqra Nelson MD [address] [place] [address] PCP - General Family Medicine 12/05/16 04/08/24 Johnny Casanova PharmD [address] [place] [address] Pharmacist Internal Medicine 09/26/22 Toñito Caraballo FNP [address] [place] [address] Nurse Practitioner Family Medicine 08/08/23 documented as of this encounter
--- OUTSIDE RECORDS SUMMARY | 2025-08-12 16:08 | XMS_ITS | Encounter Summary ---
Author Organization [employer] Address 75 [facility] 7t [place] [address] Care Team Providers Care Supervisor Calibration Name Role Phone Iqra Nelson MD Primary Care Provider + Johnny Casanova PharmD Unavailable [phone] Toñito Caraballo Unavailable Unavailable Reason for Visit * Reason Comments Med Refill Encounter Details Date Type Department Care Team (Late st Contact Info) Description 02/26/2023 Refill [facility] MEDICINE [address] [place] [address] Toñito Caraballo FNP Major depressive disorder, recurrent, [...] documented as of this encounter Care Teams Supervisor Calibration Relationship Specialty Start Date End Date Iqra Nelson MD [address] [place] [address] PCP - General Family Medicine 12/05/16 04/08/24 oJhnny Casanova PharmD [address] [place] [address] Pharmacist Internal Medicine 09/26/22 Toñito Caraballo FNP [address] [place] [address] Nurse Practitioner Family Medicine 08/08/23 documented as of this encounter
--- OUTSIDE RECORDS SUMMARY | 2025-08-12 16:08 | XMS_ITS | Encounter Summary ---
Author Organization [employer] Address 75 [facility] 7t [place] [address] Care Team Providers Care Outside Sales Engineer Name Role Phone Iqra Nelson MD Primary Care Provider + Johnny Casanova PharmD Unavailable [phone] Toñito Caraballo Unavailable Unavailable Reason for Visit * Reason Comments Med Refill Encounter Details Date Type Department Care Team (Late st Contact Info) Description 12/28/2022 Refill [facility] MEDICINE [address] [place] [address] Toñito Caraballo FNP Major depressive disorder, recurrent, [...] documented as of this encounter Care Teams Outside Sales Engineer Relationship Specialty Start Date End Date Iqra Nelson MD [address] [place] [address] PCP - General Family Medicine 12/05/16 04/08/24 Johnny Casanova PharmD [address] [place] [address] Pharmacist Internal Medicine 09/26/22 Toñito Caraballo FNP [address] [place] [address] Nurse Practitioner Family Medicine 08/08/23 documented as of this encounter
--- OUTSIDE RECORDS SUMMARY | 2025-08-12 16:08 | XMS_ITS | Encounter Summary ---
Author Organization [employer] Address 75 [facility] 7t [place] [address] Care Team Providers Care Caul Puller Name Role Phone Iqra Nelson MD Primary Care Provider + Johnny Casanova PharmD Unavailable [phone] Toñito Caraballo Unavailable Unavailable Reason for Visit * Reason Comments Med Refill Encounter Details Date Type Department Care Team (Late st Contact Info) Description 04/22/2023 Refill [facility] MEDICINE [address] [place] [address] Toñito Caraballo FNP Social History Tobacco Use [...] documented as of this encounter Care Teams Caul Puller Relationship Specialty Start Date End Date Iqra Nelson MD [address] [place] [address] PCP - General Family Medicine 12/05/16 04/08/24 Johnny Casanova PharmD [address] [place] [address] Pharmacist Internal Medicine 09/26/22 Toñito Caraballo FNP [address] [place] [address] Nurse Practitioner Family Medicine 08/08/23 documented as of this encounter
--- OUTSIDE RECORDS SUMMARY | 2025-08-12 16:08 | XMS_ITS | Encounter Summary ---
Author Organization [employer] Address 75 [facility] 7t [place] [address] Care Team Providers Care General Manager [employer] Data Cloud Name Role Phone Iqra Nelson MD Primary Care Provider + Johnny Casanova PharmD Unavailable [phone] Toñito Caraballo MANAGER ENVIRONMENTAL HEALTH Unavailable Unavailable Encounter Details Date Type Department Care Team ([facility] st Contact Info) Description 03/08/2023 Abstract [facility] MEDICINE [address] [place] [address] Iqra Nelson MD [address] [place] [address] Social History Tobacco Use Types Packs/Day Years [...] documented as of this encounter Care Teams General Manager [employer] Data [employer] Relationship Specialty Start Date End Date Iqra Nelson MD [address] [place] [address] PCP - General Family Medicine 12/05/16 04/08/24 Johnny Casanova PharmD [address] [place] [address] Pharmacist Internal Medicine 09/26/22 Toñito Caraballo FNP [address] [place] [address] Nurse Practitioner Family Medicine 08/08/23 documented as of this encounter
--- OUTSIDE RECORDS SUMMARY | 2025-08-12 16:08 | XMS_ITS | Data Portability ---
Author Organization [place] [facility], Allergy Address [address] [address] Assessment Encounter Date Assessment Date Assessment LastModified by Organization Details LastModified Time 04/21/2024 04/21/2024 63-year-old female with a history of allergic rhinitis presents today for evaluation of her ears, with recurrent infections, tinnitus, and decreased hearing. There is no evidence of infection today. We reviewed aural hygiene. I recommended trying DermOtic oil as needed for the pruritus. I did family life counselor her that a nasal steroid such [...] nasal spray,viet pension 2023 024 [id number], [address] [place], [address], 4 15:52:39 DermOtic Oil 0.01 % ear drops 2023 024 [id number], [address] [place], [address], 4 12:15:29 Patient TargetsNo targets recorded. Patient [...] Time Sensorineural hearing loss of bilateral ears 808808521 Active 2023 [place] [address] [place] [address], [place], [phone], [facility] 4 13:52:52 Allergic rhinitis 89846791 Active 2023 ESTELA MONROE MD [address] [place] [address], [place], [address], [facility] - [facility] 4 15:50:03 Pruritic disorder 311354404 Active 2023 ESTELA MONROE MD [address] [place] [address], [phone], [facility] - [facility] 4 15:50:09 Pruritic disorder of skin Active 2023 ESTELA MONROE MD [address] [place] [address], [place], [address], [facility] - [facility] 4 15:52:00 Problem Notes None recorded. Procedures Surgical History Date Name Laterality Status Provider Name and Address Organization Details Recorded Time 04/21/20 24 Comp Audio with Tymps - 03351 & 23160 completed [facility]ER [place] 100 [facility],[address], [address], [facility] 04/21/2024 13:52:45 tonsillectomy completed ESTELA MONROE MD [address] [place] [address],[address], [address], [place] [facility] 04/28/2024 07:58:20 section completed ESTELA MONROE MD [address] [place] [address], [address], [facility] 04/28/2024 07:58:28 Imaging Results None recorded. Procedure Notes None recorded. Medical Equipment None Reported. Allergies Allergen ID Allergen Name Allergen Category Reaction Reaction Severity Criticality Documentation Date Start Date Code Code System Note Provider Name and Address Organization Details Recorded Time 500628 aspirin medicatio n Not available Not available Not available 04/21/2024 1191 RxNorm Sabi Potevangelista paige [facility] 4 13:44:51 023897 amoxicill in medicatio n Not available Not available Not available 04/21/2024 723 RxNorm Sabi Potevangelista paige [facility] 4 13:45:02 558848 cultivate d mushroom extract food,medi cation Not available Not available Not available 04/21/2024 22275 17 RxNorm Sabi Potvin grecia, [facility] [...] Updated DateTime 04/21/2024 149.86 cm 32.1 kg/m2 61619.19 g Sabi Grijalva [place] - [facility] [...] ICD10 Code Diagnosis IMO Codes Diagnosis Note [id number] ESTELA MONROE MD [facility] [address] [address] 04/21/2024 13:35:47 04/21/2024 15:54:22 Sensorineural hearing loss of bilateral ears 483090614 H90.3 Audiologic al evaluation results: Right ear: Normal sloping to moderate sensorineu ral hearing loss with excellent word recognitio n. Left ear: Normal sloping to moderate sensorineu ral hearing loss with excellent word recognitio n. Tympanomet ry: Right Ear:Type A Left Ear:Type A Allergic rhinitis 699553 04 J30.9 Pruritic disorder 802289 002 L29.9 Health Concerns Section Related Observation LastModified by Organization Detai ls LastModified Time None Recorded Concern Status LastModified by Organization Details LastModified Time None Recorded Advance Directives Directive None Recorded Payers Insurance Date Sequence Insurance Name Policy Number Policy Barrow Covered Member ID Barrow Member ID Guarantor Name 04/21/2024 1 [facility] - DOS ON OR AFTER 2022 - LONG-TERM OPTIONS AND ONE CARE (MEDICARE REPLACEMENT/AD VANTAGE - PPO) Yoselin Rodríguez [id number] Yoselin Rodríguez Notes Date Note Type Note [...] was several months ago. ESTELA MONROE MD [address] [place] [address], [phone], [facility] - [facility] 04/28/2024 08:02:56 OBGyn Episode No OBEpisode recorded.
--- OUTSIDE RECORDS SUMMARY | 2025-08-12 16:08 | XMS_ITS | Encounter Summary ---
Author Organization [employer] Address 75 [facility] 7t [place] [address] Care Team Providers Care Hvac/R Service Technician Name Role Phone Iqra Nelson MD Primary Care Provider + Johnny Casanova PharmD Unavailable [phone] Toñito Caraballo Unavailable Unavailable Reason for Visit * Reason Comments Med Refill Encounter Details Date Type Department Care Team ([facility] st Contact Info) Description 02/21/2023 Refill [facility] MEDICINE [address] [place] [address] Toñito Caraballo FNP Social History Tobacco Use [...] documented as of this encounter Care Teams Hvac/R Service Technician Relationship Specialty Start Date End Date Iqra Nelson MD [address] [place] [address] PCP - General Family Medicine 12/05/16 04/08/24 Johnny Casanova PharmD [address] [place] [address] Pharmacist Internal Medicine 09/26/22 Toñito Caraballo FNP [address] [place] [address] Nurse Practitioner Family Medicine 08/08/23 documented as of this encounter
--- OUTSIDE RECORDS SUMMARY | 2025-08-12 16:08 | XMS_ITS | Data Portability ---
Author Organization [facility] Address [address] [place] [phone] Care Team Providers Care Mainspring Barrel Assembly Cleaner Name Role Phone Unavailable OTHER HIM CCA OTHER Assessment Encounter Date Assessment Date Assessment LastModified by Organization Details LastModified Time 05/05/2023 05/05/2023 I provided real -time medical direction via phone for this encounter, and was available for additional phone based assistance as needed. I have reviewed and agree with the Assessment and Plan as documented by the Credit Risk Modeler eagle Not available 05/05/2023 17:13:47 08/27/2024 08/27/2024 [...] 2 Ag, QL IA, respiratory specimen [address], [address] 4 19:41:18 rapid flu (A+B) [address], [address] 4 19:41:57 Referral None recorded. Procedures None recorded. Surgeries None recorded. Imaging None recorded. Medication Orders prednisone 20 mg tablet 2023 024 [id number] [address] [place], [address], 4 16:22:59 prednisone 20 mg tablet 2023 024 [id number], [address] [place], [address], 4 16:24:53 benzonatate 100 mg capsule 2023 024 [facility], [address] [place] [address], [address], 4 16:24:53 azithromyci n 250 mg tablet 2022 023 [facility], [address] [place] [address], [address], 3 17:11:16 Augmentin 875 mg-125 mg tablet 2022 023 [facility], [address] [place] [address], [address], 3 16:07:33 metronidazo le 500 mg tablet 2021 022 [id number], [address] [place] [address], [address], 2 18:29:57 metronidazo le 500 mg tablet 2021 022 ochoallo Not available 2 09:06:30 Patient TargetsNo targets recorded. Patient InstructionsNo instructions recorded. Reason for Referral None Reported. Results Created Date Observation Date Name Description Value Unit Range Abnormal Flag Note LastModifiedBy Organization Detail LastModifiedTime 08/27/20 24 08/27/2024 rapid flu (A+B) Flu negati ve Not Available [facility] ed [address] [place] [address], [phone] 08/27/2024 19:14:26 08/27/20 24 08/27/2024 rapid SARS CoV 2 Ag, QL IA, respi rator y speci men rapid SARS CoV 2 Ag, QL IA, respiratory specimen negati ve Not Available [facility] - [facility] ed [address] [place] [address], [phone] 08/27/2024 19:14:26 Result Notes None recorded. Medical [...] Not available Not available Not available 05/05/2023 09077 RxNorm Not Available [facility] - production 4 03:47:03 3052 ibuprofen medicatio n hives Not available Not available 05/05/2023 5640 RxNorm SOB Karen Giraldo MD [address] [place] [address],[address], [place], [address], [facility] 3 17:17:13 3053 Augmentin medicatio n dyspnea Not available Not available 05/05/2023 14677 2 RxNorm Urtic aria Karen Giraldo MD [address] [place] [address],[address], [place], [address], [facility] 3 17:18:03 Medications Name Sig Start Date [...] Not Available No t Available [facility] [employer] Billing Payroll Clerk active Not Available Not Available No [...] temperature Heart rate Respiratory rate Oxygen saturation Systolic And Diastolic Provider Name and Address Organization Details Last Updated DateTime 2 98.6 [degF] 80 /min 16 /min 100 % 161/78 mm[Hg] Orlin Ruiz MD [address] [facility],[address], [place], [address], [employer] 2 18:30:24 Date Recorded Oxygen saturation Heart rate Body weight Body temperature Respiratory rate Systolic And Diastolic Provider Name and Address Organization Details Last Updated DateTime 3 98 % 71 /min 53138.8 8 g 97.1 [degF] 16 /min 181/79 mm[Hg] Not Available [facility] [employer] 3 16:05:25 Date Recorded Body weight Provider Name an d Address Organization Details Last Updated DateTime 05/05/2023 84935.82 g eLxy Mendoza [address] [place] [address],[address], [place], [address], [place] [email or web address] 05/05/2023 17:09:15 Date Recorded Respiratory rate Body temperature Oxygen saturation Heart rate Systolic And Diastolic Provider Name and Address Organization Details Last Updated DateTime 3 12 /min 98.4 [degF] 98 % 66 /min 152/74 mm[Hg] Not Available [employer] 3 17:08:28 Date Recorded Oxygen saturation Body weight Respiratory rate Heart rate Body temperature Systolic And Diastolic Provider Name and Address Organization Details Last Updated DateTime 4 99 % 04660.5 36 g 16 /min 82 /min 98 [degF] 164/72 mm[Hg] Not Available [employer] 4 16:20:14 Social History None recorded. Functional [...] Codes Diagnosis Note 1109 Orlin Ruiz MD [facility] [address] [place] [phone] 01/05/2022 18:15:37 06/07/2022 14:14:50 Acute pelvic pain 505262266 R10.2 Reports history of cramping after cervical polyp removal. Reports spotting, on re-assessm ent with manager care, passing fishy-sme lling white discharge. No abdominal tenderness on manager care examinatio n to suggest referred intra-abdo mary process. Reports symptoms are not consistent with UTI, so LE on UA likely represents inflammati on versus contaminat ion. Unable to perform pelvic examinatio n with manager care so difficult to assess for other pelvic pathology. Would benefit from close follow-up by physician who performed the procedure (Dr. Goldsmith?? ) Will treat empiricall y with Flagyl for BV in the interim. [id number] Andrea Thorpe MD Main - [facility] [address] [place] [phone] 04/24/2023 16:05:20 04/24/2023 23:29:29 Acute otitis media 1938085 H66.92 Patient with history of adult ear infection presents with typical symptoms of ear pain. Credit Risk Modeler examinatio n consistent with ear infection. Will treat with augmentin. They can pick it up tonight, so did not give anything via manager care. [id number] Karne Giraldo MD Main - [facility] [address] [place] [phone] 05/05/2023 17:08:26 05/07/2023 07:15:01 Acute otitis media 8057841 H66.92 Patient reports she has had azithromyc [...] or middle ear/ inner ear fluid drain [id number] Domi Garland MD Main - [facility] [address] [place] [phone] 08/27/2024 16:20:07 08/28/2024 00:15:45 Acute exacerbation of chronic obstructive pulmonary disease 927962313 J44.1 Health Concerns Section Related Observation LastModified by Organization Detai ls LastModified Time None Recorded Concern Status LastModified by Organization Details LastModified Time None Recorded Advance Directives Directive None Recorded Payers Insurance Date Sequence Insurance Name Policy Number Policy Barrow Covered Member ID Barrow Member ID Guarantor Name 08/28/2024 1 [facility] - DOS PRIOR TO 2022 - DUAL ELIGIBLE (MEDICARE REPLACEMENT/AD VANTAGE - HMO) Yoselin Rodríguez [id number] Yoselin Rodríguez 08/28/2024 1 [facility] ON [facility] AFTER 2022 - DUAL ELIGIBLE - CUSTODIAL OPTIONS AND ONE CARE (MEDICARE REPLACEMENT/AD VANTAGE - HMO) Yoselin Rodríguez [id number] Yoselin Rodríguez Notes Date Note Type Note [...] with her previous UTI. Orlin Ruiz MD [address] [place] [address],[address] [facility], [place], [address], [employer] 01/05/2022 18:31:02 04/24/2023 text/html ROS as noted in the HPI HPI: Severe left ear ache .................... .................... .................... .................... .................... .................... .................... . CRC Nursing Assessment: Comments: [facility] triage nurse calling on behalf of member with request for MIH visit for complaints of outer ear discomfort for 3 days Aware MIH visit does not include inner ear eval. Request inst[facility] visit to eval unsure fever/chills Verify member name/- Andrea Thorpe MD [address] [facility],[address], [place], [address], [facility] - [employer] 04/24/2023 16:07:52 05/05/2023 text/html ROS as noted in the HPI HPI: mbr with know ear infection for two weeks/nasal congestion/moderate pain, recent ED visit MD ordered Fluconazole, mbr looking for oral antibiotics, requesting MIH. Protocol Used: Ear - Discharge Protocol-Based Disposition: Consider [facility], [facility] Community Clinician, or PCP visit within 24 [...] .................... .................... .................... .................... .................... .................... ........... Credit Risk Modeler Note From Estrada Jain: Dispatched to the [...] . Disposition: Fulfilled Karen Giraldo MD [address] [facility],[address], [place], [address], [employer] - [employer] 05/05/2023 22:29:41 08/27/2024 text/html HPI: Member calling [...] any additional information to process this visit. Credit Risk Modeler Organization Information for Shantanu Olson Business Legal Name: [facility] Address: [address] [place] [address], Load Mixer: Zachary Heredia MD [place] No.: [id number] Credit Risk Modeler POC Test Results from Shantanu Olson Rapid COVID antigen (16:14:44) COVID: - Attachments uploaded as part of this test result can be found under Documents section. Rapid influenza antigen (16:14:45) Flu: - Attachments uploaded as part of this test result can be found under Documents section. .................... .................... .................... .................... .................... .................... .................... . Credit Risk Modeler Note From Shantanu Olson: Pt co dry [...] the ER. Pt advised to continue with flight attendant/inflight manager appt. Pt advised to follow up with PCP. .................... .................... .................... .................... .................... .................... .................... . [facility] Consulted: Domi Garland .................... .................... .................... .................... .................... .................... .................... . Disposition: Fulfilled Domi Garland MD [address] [place] [address],[address], [place], [address], [employer] 08/27/2024 19:14:58 OBGyn Episode No OBEpisode recorded.
== END 2025-08-12 13:52 | disposition home or self-care (01) ==
LOC: HO.HMCH 13:03
PROVIDERS: PCP Internal Medicine; Visit Provider Internal Medicine
DX: I10 Essential (primary) hypertension (principal); M81.0 Age-related osteoporosis without current pathological fracture; J41.1 Mucopurulent chronic bronchitis

== ENCOUNTER → 2025-08-12 13:03 | Outpatient (BNVA) | payer OTHER, SELFPAY | PROVIDERS: PCP Internal Medicine; Visit Provider Internal Medicine | DX: I10 Essential (primary) hypertension (principal); M81.0 Age-related osteoporosis without current pathological fracture; J41.1 Mucopurulent chronic bronchitis; F41.0 Panic disorder [episodic paroxysmal anxiety]; J45.909 Unspecified asthma, uncomplicated; G43.909 Migraine, unspecified, not intractable, without status migrainosus | CPT/HCPCS: 96127; 99212 ==

== ENCOUNTER → 2025-08-27 11:40 | Outpatient (BNVA) | payer OTHER, SELFPAY | PROVIDERS: PCP Internal Medicine | DX: I10 Essential (primary) hypertension (principal) | CPT/HCPCS: 99211 ==

== ENCOUNTER 2025-08-28 12:45 | Outpatient (AMB) | payer OTHER, SELFPAY ==
[2025-08-28 12:51] VITALS: BP 127/72; PULSE 75; O2SAT 100; BMI 32.9
--- NOTE | 2025-08-28 12:51 | MHC.OFFVIS ---
Vital Signs 08/28/25 12:51 Height 4 ft 11 in Weight 163 lb BMI 32.9 BP 127/72 Blood Pressure Location Rt brachial Position Sitting Pulse 75 Pulse Source Pulse Oximeter Pulse Oximetry (%) 100 Oxygen Delivery Method Room Air Intake Visit Reasons: asthma/copd Allergies cephalexin Allergy (Severe, Verified 08/28/25 12:59) Rash seafood Allergy (Severe, Verified 08/28/25 12:59) Anaphylaxis vancomycin (VANCOMYCIN) Allergy (Severe, Verified 08/28/25 12:59) ANAPHYLAXIS, hives aspirin (ASPIRIN) Allergy (Intermediate, Verified 08/28/25 12:59) rash, asthma codeine (CODEINE) Allergy (Mild, Verified 08/28/25 12:59) rash egg (EGGS) Allergy (Mild, Verified 08/28/25 12:59) VOMITING peanut (PEANUTS) Allergy (Mild, Verified 08/28/25 12:59) HIVES,DIARRHEA amoxicillin (From Augmentin) Allergy (Verified 08/28/25 12:59) hives, swelling, difficulty breathing clavulanic acid (From Augmentin) Allergy (Verified 08/28/25 12:59) hives, swelling mushroom Allergy (Verified 08/28/25 12:59) Rash lactose Adverse Reaction (Intermediate, Verified 08/28/25 12:59) diarrhea cepha mixlexin Allergy (Intermediate, Uncoded 08/12/25 13:36) racing heart, rash HPI HPI asthma/copd: Details: 64-year-old lady, lifetime nonsmoker, followed for severe persistent asthma, environmental allergies, and post COVID-19 syndrome.? Patient was not able to tolerate immunologic therapy for her asthma including Fasenra and Xolair, but had good response with Dupixent. She also has had significant side effects after COVID vaccines.? After the last office visit patient continued on Symbicort, however now with slowly worsening symptoms and mild exacerbation symptomatic with cough productive of greenish sputum. [facility] Medical History Calcaneal spur, left foot Bilateral foot pain Plantar fasciitis of left foot Metatarsalgia, right foot Physical exam Urinary pain Rotator cuff tendonitis Chest pain Diarrhea Dyspnea on exertion History of pulmonary embolism Encounter for screening examination for sexually transmitted disease Women's annual routine gynecological examination Abdominal bloating Acute diarrhea COVID-19 Pulmonary embolism Pulmonary embolism Vaginal itching Hx of human papillomavirus infection Candidiasis of mouth and esophagus Abdominal cramping Pneumonia Bile salt-induced diarrhea History of pilonidal cyst Gastritis IBS (irritable bowel syndrome) Hypertension Pre-eclampsia Irritable bowel syndrome with both constipation and diarrhea Gallstones Surgical History H/O cervical polypectomy Hx of esophagogastroduodenoscopy H/O colonoscopy History of surgical removal of pilonidal cyst S/P tonsillectomy History of section History of cholecystectomy Family History Father Heart attack GERD (gastroesophageal reflux disease) Peptic ulcer disease Mother CHF (congestive heart failure) Afib Diverticulitis History of bowel resection Hypothyroid COVID-19 Maternal Aunt Diabetes Maternal Uncle Cancer Maternal Grandmother Cancer Brother Mental health disorder Social History Household Members: Spouse Housing: Apartment Are you a primary child care attendant school to a significant other at home: No Do you presently have visiting nurse or other home services: Yes (phone visits) Alcohol intake: former Patient Tobacco Use Status: Never used Tobacco e-Cigarette/Vaping Use: Never Used Second Hand Smoke Exposure: No service: No Current occupational status: retired Cognitive needs: No Hearing needs: No Vision needs: No Female Reproductive History Menstrual Age of Menarche: 10 Review of Systems Const Denies daytime sleepiness, Denies excessive sweating, Denies fatigue, Denies fever(s), Denies lethargy, Denies malaise, Denies night sweats, Denies snoring and Denies weight loss Eyes Denies blurry vision and Denies itchy eyes ENT Denies nasal congestion, Denies post nasal drip, Denies sinus pain, Denies sinus pressure and Denies other ( Thrush) Card Denies chest pain, Denies pedal edema, Denies dyspnea, Denies orthopnea and Denies paroxysmal nocturnal dyspnea Resp Reports cough, Denies hemoptysis, Reports excessive phlegm production, Denies dyspnea, Denies snoring and Denies wheezing GI Denies abdominal pain and Denies heartburn Musc Denies myalgias, Denies arthralgias and Denies joint swelling Skin/Breast Denies rash Neuro Denies memory loss and Denies seizure-like activity Psych Denies abnormal sleep pattern, Denies anxiety and Denies memory loss Endo Denies excessive sweating, Denies fatigue and Denies heat intolerance Migue/Lymph Denies easy bruising Aller/Immun Denies itchy eyes, Denies seasonal rhinorrhea and Denies wheezing Physical Exam Vital Signs: Last Vital Signs Pulse 75 08/28/25 12:51 BP 127/72 08/28/25 12:51 Pulse Ox 100 08/28/25 12:51 Oxygen Delivery Method Room Air 08/28/25 12:51 BMI result Body Mass Index 32.9 Const General: no acute distress and alert Nutritional Appearance: not obese Orientation/consciousness: Other orientation findings ( oriented) HEENT Head: Yes atraumatic Eyes General: appearance normal, both eyes and all related structures Sclerae: sclerae normal EOM: EOMs intact bilaterally Neck Neck: Yes supple Lymphatic: no lymphadenopathy noted Resp Effort & Inspection: normal respiratory effort and no use of accessory muscles Auscultation: clear to auscultation bilaterally Cardio Rate: regular rate Rhythm: regular rhythm Heart sounds: no gallops, no murmurs and no rubs Skin General skin exam: other ( warm) Extrem General: No clubbing, No cyanosis and No edema Assessment & Plan Assessment & Plan (1) Asthma: Code(s): J45.909 - Unspecified asthma, uncomplicated Category: Medical Qualifiers: Asthma severity: moderate Asthma persistence: persistent Asthma complication type: uncomplicated Qualified Code(s): J45.40 - Moderate persistent asthma, uncomplicated Plan: Worsening control on Symbicort, will switch to Breztri. Continue Dupixent and albuterol MDI/nebs. (2) Environmental allergies: Code(s): Z91.09 - Other allergy status, other than to drugs and biological substances Category: Medical Plan: Reasonable control on Dupixent. Continue current regimen. Medications: New azithromycin For 250 mg dose pack: take 500 mg today (day 1), then 250 mg for 4 days (days 2-5) PO 6 tabs 0RF peqtkkouwv-oymehbfs-nthjzwlydy 160-9-4.8 mcg/actuation (Breztri Aerosphere) 2 inhalations inhalation BID 1 ea 6RF Refilled albuterol sulfate 90 mcg/actuation 90 mcg inhalation DAILY 1 ea 6RF albuterol sulfate 2.5 mg (3 mL) inhalation TID PRN 180 mL 6RF asthma Discontinued Symbicort 160-4.5 mcg/actuation (budesonide-formoterol) Discontinued Reason: Doctor's Order 2 puffs PO BID 10.2 grams 6RF NS Coding Level of Care Code Est Pt Level 4 (97911) Diagnoses Moderate persistent asthma without complication J45.40 Asthma severity: moderate Asthma persistence: persistent Asthma complication type: uncomplicated Environmental allergies Z91.09
--- OUTSIDE RECORDS SUMMARY | 2025-08-28 18:23 | XMS_ITS | Data Portability ---
Author Organization MD - [facility], Allergy Address [address] [address] Assessment Encounter Date Assessment Date Assessment LastModified by Organization Details LastModified Time 04/21/2024 04/21/2024 63-year-old female with a history of allergic rhinitis presents today for evaluation of her ears, with recurrent infections, tinnitus, and decreased hearing. There is no evidence of infection today. We reviewed aural hygiene. I recommended trying DermOtic oil as needed for the pruritus. I did counseling aide her that a nasal steroid such as [...] Flonase Allergy Relief 50 mcg/actua tion nasal spray,ivet pension 2023 024 [id number], [address] [place], [address], 4 15:52:39 DermOtic Oil 0.01 % ear drops 2023 024 [address] [id number], [address] [place], [address], 4 12:15:29 Patient TargetsNo targets recorded. Patient [...] Time Sensorineural hearing loss of bilateral ears 330130415 Active 2023 [place]ER [place] [address] [place] [address], [place], [phone], [facility] - [facility] 4 13:52:52 Allergic rhinitis 33062587 Active 2023 ESTELA MONROE MD [address] [place] [address], [place], [phone], [facility] - [facility] 4 15:50:03 Pruritic disorder 032921412 Active 2023 ESTELA MONROE MD [address] [place] [address], [phone], [facility] - [facility] 4 15:50:09 Pruritic disorder of skin Active 2023 ESTELA MONROE MD [address] [place] [address], [place], [phone], [facility] - [facility] 4 15:52:00 Problem Notes None recorded. Procedures Surgical History Date Name Laterality Status Provider Name and Address Organization Details Recorded Time 04/21/20 24 Comp Audio with Tymps - 30714 & 11328 completed GREER [place] 100 [facility],[address], [phone], [facility] 04/21/2024 13:52:45 tonsillectomy completed ESTELA MONROE MD [address] [place] [address],[address], [address], [place] - [facility] 04/28/2024 07:58:20 section completed ESTELA MONROE MD [address] [place] [address], [phone], [facility] 04/28/2024 07:58:28 Imaging Results None recorded. Procedure Notes None recorded. Medical Equipment None Reported. Allergies Allergen ID Allergen Name Allergen Category Reaction Reaction Severity Criticality Documentation Date Start Date Code Code System Note Provider Name and Address Organization Details Recorded Time 074106 aspirin medicatio n Not available Not available Not available 04/21/2024 1191 RxNorm Sabi Potevangelista paige [facility] 4 13:44:51 662518 amoxicill in medicatio n Not available Not available Not available 04/21/2024 723 RxNorm Sabi Potevangelista paige [facility] 4 13:45:02 831636 cultivate d mushroom extract food,medi cation Not available Not available Not available 04/21/2024 92660 17 RxNorm Sabi Potvin grecia, [facility] 4 13:45:09 Medications Name Sig Start [...] Updated DateTime 04/21/2024 149.86 cm 32.1 kg/m2 40357.19 g Sabi Grijalva [place] - [facility] 04/21/2024 15:22:56 Social History None recorded. [...] ICD10 Code Diagnosis IMO Codes Diagnosis Note [id number] ESTELA MONROE MD [facility] [address] [address] 04/21/2024 13:35:47 04/21/2024 15:54:22 Sensorineural hearing loss of bilateral ears 144003646 H90.3 Audiologic al evaluation results: Right ear: Normal sloping to moderate sensorineu ral hearing loss with excellent word recognitio n. Left ear: Normal sloping to moderate sensorineu ral hearing loss with excellent word recognitio n. Tympanomet ry: Right Ear:Type A Left Ear:Type A Allergic rhinitis 063292 04 J30.9 Pruritic disorder 022537 002 L29.9 Health Concerns Section Related Observation LastModified by Organization Detai ls LastModified Time None Recorded Concern Status LastModified by Organization Details LastModified Time None Recorded Advance Directives Directive None Recorded Payers Insurance Date Sequence Insurance Name Policy Number Policy Barrow Covered Member ID Barrow Member ID Guarantor Name 04/21/2024 1 [facility] - DOS ON OR AFTER 2022 - GROUP HOME OPTIONS AND ONE CARE (MEDICARE REPLACEMENT/AD VANTAGE - PPO) Yoselin Rodríguez [id number] Yoselin Rodríguez Notes Date Note Type Note [...] was several months ago. ESTELA MONROE MD [address] [place] [address], [phone], [facility] - [facility] 04/28/2024 08:02:56 OBGyn Episode No OBEpisode recorded.
--- OUTSIDE RECORDS SUMMARY | 2025-08-28 18:23 | XMS_ITS | Encounter Summary ---
Author Organization [employer] Address [address] [facility] [address]t [place] [address] Care Team Providers Care Poultry Debeaker Name Role Phone Iqra Nelson MD Primary Care Provider + Johnny Casanova PharmD Unavailable [phone] Toñito Caraballo Unavailable Unavailable Reason for Visit * Reason Comments Med Refill Encounter Details Date Type Department Care Team (Late st Contact Info) Description 04/22/2023 Refill [facility] MEDICINE [address] [place] [phone] Toñito Caraballo FNP Social History Tobacco Use [...] documented as of this encounter Care Teams Poultry Debeaker Relationship Specialty Start Date End Date Iqra Nelson MD [address] [place] [address] PCP - General Family Medicine 12/05/16 04/08/24 Johnny Casanova PharmD [address] [place] [address] Pharmacist Internal Medicine 09/26/22 Toñito Caraballo FNP [address] [place] [address] Nurse Practitioner Family Medicine 08/08/23 documented as of this encounter
--- OUTSIDE RECORDS SUMMARY | 2025-08-28 18:23 | XMS_ITS | Encounter Summary ---
Author Organization [employer] Address 75 [facility] [address]t [place] [address] Care Team Providers Care Ammonium Nitrate Neutralizer Name Role Phone Iqra Nelson MD Primary Care Provider + Johnny Casanova PharmD Unavailable [phone] Toñito Caraballo Unavailable Unavailable Reason for Visit * Reason Comments Med Refill Encounter Details Date Type Department Care Team (Late st Contact Info) Description 07/20/2023 Refill [facility] MEDICINE [address] [place] [address] Toñito Caraballo FNP Social History Tobacco Use [...] documented as of this encounter Care Teams Ammonium Nitrate Neutralizer Relationship Specialty Start Date End Date Iqra Nelson MD [address] [place] [address] PCP - General Family Medicine 12/05/16 04/08/24 Johnny Casanova PharmD [address] [place] [address] Pharmacist Internal Medicine 09/26/22 Toñito Caraballo FNP [address] [place] [address] Nurse Practitioner Family Medicine 08/08/23 documented as of this encounter
--- OUTSIDE RECORDS SUMMARY | 2025-08-28 18:23 | XMS_ITS | Encounter Summary ---
Author Organization [employer] Address 75 [facility] 7t [place] [address] Care Team Providers Care Glass Setter Name Role Phone Iqra Nelson MD Primary Care Provider + Johnny Casanova PharmD Unavailable [phone] Toñito Caraballo Unavailable Unavailable Reason for Visit * Reason Onset Date Comments Med Refill Appointment 10/11/2023 LVM-Re: her apt for today as [id number] @2pm Encounter Details Date Type Department Care Team (Late st Contact Info) Description 10/11/2023 Refill [facility] MEDICINE [address] [place] [address] Toñito Caraballo FNP Social History Tobacco Use [...] as of this encounter Care Teams Glass Setter Relationship Specialty Start Date End Date Iqra eNlson MD [address] [place] [address] PCP - General Family Medicine 12/05/16 04/08/24 Johnny Casanova PharmD [address] [place] [address] Pharmacist Internal Medicine 09/26/22 Toñito Caraballo FNP [address] [place] [address] Nurse Practitioner Family Medicine 08/08/23 documented as of this encounter
--- OUTSIDE RECORDS SUMMARY | 2025-08-28 18:23 | XMS_ITS | Clinical Summary ---
Author Organization [employer] Address 75 [facility] 7t [place] [address] Care Team Providers Care Claim Attorney Name Role Phone Johnny Casanova PharmD Unavailable [phone] Toñito Caraballo EXTRACT OPERATOR Unavailable Unavailable Allergies Active Allergy Reactions Criticality [...] diets. She wants a referral to the deep well contractor. Discussed re weight reduction options including exercise, life style modifications, diet, referral to product marketing specialist. Discussed re lower calorie intake, [...] concerns, contact [facility] All her questions were answered and I [...] EST): Continue estrace cream and fu with RESPIRATORY SERVICES MANAGER. Refill sent to pharmacy. Assessment & Plan (10/09/2022 2:44 PM EST): Most likely secondary to atrophic vaginitis. -use estrogen cream daily x2 weeks and then 3 times per week. Pneumonia due to COVID-19 virus 08/24/2022 Polyp of cervix 08/24/2022 Assessment & Plan (03/26/2023 2:56 PM EDT): s/p resection by RESPIRATORY SERVICES MANAGER, more than a year ago, last PAP was normal refer to RESPIRATORY SERVICES MANAGER second opinion due to persistent dyspareunia Postcoital bleeding 08/24/2022 Assessment & Plan (03/26/2023 3:04 PM EDT): See previous issue and refer to RESPIRATORY SERVICES MANAGER Pruritus 08/24/2022 Right upper quadrant pain [...] q2wk + albuterol PRN and FU w/ court recorder Decline flue and Covid IZ today, advised [...] 12:00 AM EST) Triglycerides 128 <150 mg/dL [facility] Comment:Desirable Triglyceri de: less than 150 mg/dLBorderline High Triglyceride 150-199 mg/dLHigh Triglyceride: 200-499 mg/dLVery High Triglyceride: greater than or equal to 5OO mg/dL Cholesterol 169 <200 mg/dL [facility] Comment:Desirable Cholestero l: less than 200 mg/dLBorderline High Cholesterol: 200-239 mg/dLHigh Cholesterol: greater than 239 mg/dL LDL Cholesterol Calculated 82 <100 mg/dL [facility] Comment:Desirable LDL: less than 100 mg/dLNear Optimal/Above Optimal LDL: 110- 129 mg/dLBorderline High LDL: 130-159 mg/dLHigh LDL: 160-189 mg/dLVery High LDL: greater than or equal to 190 mg/dL HDL Cholesterol 62 >40 mg/dL [facility] Comment:Desirable HDL: great er than 40 mg/dL Note: This HDL assay may give artificially low results in patients with liver disease. Blood 11/08/2023 11/08/2023 Iqra Nelson MD LAB BLOOD ORDERABLES Fin al Result [facility] [address] [place] [phone] * HPV mRNA E6/E7 w/Reflex to HPV Genotypes 16, 18/45 (05/31/2023 1:12 PM EDT) HPV nRNA E6/E7 Not Detected Not Detected [facility] Comment:Methodology: Transcr iption-Mediated AmplificationThis assay detects E6/E7 viral messenger RNA (mRNA) from 14high-risk HPV types (16,18,31,33,35,39,45,51,52,56,58,59,66,68).Cervical sources are required for HPV testing.If a vaginal source from a patient who has had atotal hysterectomy with removal of cervix wassubmitted, please contact the testing laboratoryfor alternative testing options.For additional information, please refer [email or web address]/[email or web address](This link if provided for information/educational purposes only.)THIS TEST WAS PERFORMED AT:[facility] [place] [phone] HARRISON MD HPV mRNA E6/E7 [facility] HPV 16 RNA [facility] HPV 18/45 RNA TNP [facility] 05/31/2023 1:12 PM EDT 06/01/2023 9:00 AM EDT us [facility] External Provider LAB CYT OLOGY ORDERABLES Final Result [facility] [address] [place] [phone] * Pap Smear (05/31/2023 1:12 PM EDT) 05/31/2023 1:12 PM EDT 06/01/2023 9:00 AM EDT Narrative [facility] - 06/12/2023 1:57 PM EDT ----- ------- Name: Yoselin Rodríguez Age/Sex: 62/F : 1960 Unit#: [id number] Attend Dr: Ale Francisco CNM Re05/31/23 Status: DEP REF Location: [facility] Disch: ----- ------- SPEC : [id number] RECD: 06/01/23 STATUS: BLAYNE BLAIR NUM: [id number] AGATHA: 05/31/23-1311 [facility] DR: Ale Francisco CNM ENTERED: 06/01/23-1102 SP [...] 59, 66, 68) HPV testing performed by [facility], [place], [place]. See reference laboratory portion of the EMR for entire report. Clinical Information LMP: No menses Previous PAP test: 07/19/21, abnormal Other history: +HPV, personal history of other infectious and parasitic diseases Material Received ThinPrep-Cervical Copies To: Iqra Nelson MD [address] [place] [address] [address] Lee [address] [place] [phone] ----- ------- Signed (signature on file) Yajaira Dash 06/12/23 1357 ----- ------- END OF REPORT [facility] External Provider LAB CYT KIRSTIE ORDERABLES Final Result [facility] [address] [place] [phone] [phone] * Mammography Report 1 (04/21/2021 1:15 [...] Most Recently Relevant to Health Maintenance Insurance [facility] ONE CARE < 65 [address] [place] [id number] [facility] Care Teams Claim Attorney Relationship Specialty Start Date End Date Johnny Casanova, RachelD [address] [place] [address] Pharmacist Internal Medicine 09/26/22 Toñito Caraballo FNP [address] [place] [address] Nurse Practitioner Family Medicine 08/08/23
--- OUTSIDE RECORDS SUMMARY | 2025-08-28 18:23 | XMS_ITS | Encounter Summary ---
Author Organization [employer] Address 75 [facility] 7t [place] [address] Care Team Providers Care Treasury Analyst Name Role Phone Iqra Nelson MD Primary Care Provider + Johnny Casanova PharmD Unavailable [phone] Toñito Caraballo PREP COOK Unavailable Unavailable Encounter Details Date Type Department Care Team ([facility] Contact Info) Description 09/26/2022 Orders Only [facility] MED[facility] [address] [place] [address] Johnny Casanova, PharmD [address] [place] [address] Social History Tobacco Use Types Packs/Day Years [...] documented as of this encounter Care Teams Treasury Analyst Relationship Specialty Start Date End Date Iqra Nelson MD [address] [place] [address] PCP - General Family Medicine 12/05/16 04/08/24 Johnny Casanova, PharmD [address] [place] [address] Pharmacist Internal Medicine 09/26/22 Toñito Caraballo FNP [address] [place] [address] Nurse Practitioner Family Medicine 08/08/23 documented as of this encounter
--- OUTSIDE RECORDS SUMMARY | 2025-08-28 18:23 | XMS_ITS | Encounter Summary ---
Author Organization [employer] Address [address] [facility] 7t [place] [address] Care Team Providers Care Annealing Oven Operator Name Role Phone Iqra Nelson MD Primary Care Provider + Johnny Casanova PharmD Unavailable [phone] Toñito Caraballo CLINICAL APPLICATION SPECIALIST Unavailable Unavailable Encounter Details Date Type Department Care Team ([facility] st Contact Info) Description 02/12/2024 Orders Only [facility] MEDICINE [address] [place] [address] Provider, MD Antoine Social History Tobacco Use [...] documented as of this encounter Care Teams Annealing Oven Operator Relationship Specialty Start Date End Date Iqra Nelson MD [address] [place] [phone] PCP - General Family Medicine 12/05/16 04/08/24 Johnny Casanova PharmD [address] [place] [address] Pharmacist Internal Medicine 09/26/22 Toñito Caraballo FNP [address] [place] [address] Nurse Practitioner Family Medicine 08/08/23 documented as of this encounter
--- OUTSIDE RECORDS SUMMARY | 2025-08-28 18:23 | XMS_ITS | Encounter Summary ---
Author Organization [employer] Address 75 [facility] 7t [place] [address] Care Team Providers Care Patrol Driver Name Role Phone Iqra Nelson MD Primary Care Provider + Johnny Casanova PharmD Unavailable [phone] Toñito Caraballo Unavailable Unavailable Reason for Visit * Reason Comments Med Refill Encounter Details Date Type Department Care Team ([facility] st Contact Info) Description 02/21/2023 Refill [facility] MEDICINE [address] [place] [address] Toñito Caraballo FNP Social History Tobacco Use [...] documented as of this encounter Care Teams Patrol Driver Relationship Specialty Start Date End Date Iqra Nelson MD [address] [place] [address] PCP - General Family Medicine 12/05/16 04/08/24 Johnny Casanova PharmD [address] [place] [address] Pharmacist Internal Medicine 09/26/22 Toñito Caraballo FNP [address] [place] [address] Nurse Practitioner Family Medicine 08/08/23 documented as of this encounter
--- OUTSIDE RECORDS SUMMARY | 2025-08-28 18:23 | XMS_ITS | Encounter Summary ---
Author Organization [employer] Address 75 [facility] 7t [place] [address] Care Team Providers Care Supervisor Shipping Name Role Phone Iqra Nelson MD Primary Care Provider + Johnny Casanova PharmD Unavailable [phone] Toñito Caraballo Unavailable Unavailable Reason for Visit * Reason Comments Med Refill Encounter Details Date Type Department Care Team (Late st Contact Info) Description 12/28/2022 Refill [facility] MEDICINE [address] [place] [address] Toñito Caraballo FNP Major depressive disorder, recurrent, [...] as of this encounter Care Teams Supervisor Shipping Relationship Specialty Start Date End Date Iqra Nelson MD [address] [place] [address] 8[address]10 PCP - General Family Medicine 12/05/16 04/08/24 Johnny Casanova PharmD [address] [place] [address] 27729 Pharmacist Internal Medicine 09/26/22 Toñito Caraballo FNP [address] [place] [address] 76708 Nurse Practitioner Family Medicine 08/08/23 documented as of this encounter
--- OUTSIDE RECORDS SUMMARY | 2025-08-28 18:24 | XMS_ITS | Encounter Summary ---
Author Organization [employer] Address 75 [facility] 7t [place] [address] Care Team Providers Care Dietary Supervisor Name Role Phone Iqra Nelson MD Primary Care Provider + Johnny Casanova PharmD Unavailable [phone] Toñito Caraballo MOTORCYCLE POLICE OFFICER Unavailable Unavailable Encounter Details Date Type Department Care Team ([facility] st Contact Info) Description 10/10/2022 Orders Only [facility] MEDICINE [address] [place], [place] [phone] Iqra Nelson MD [address] [place], [place] [phone] Vitamin D deficiency (Primary Dx); Senile osteoporosis [...] documented as of this encounter Care Teams Dietary Supervisor Relationship Specialty Start Date End Date Iqra Nelson MD [address] [place] [address] 23499 PCP - General Family Medicine 12/05/16 04/08/24 Johnny Casanova, Ti [address] [place] [address] 93501 Pharmacist Internal Medicine 09/26/22 Toñito Caraballo FNP [address] [place] [address] 74461 Nurse Practitioner Family Medicine 08/08/23 documented as of this encounter
--- OUTSIDE RECORDS SUMMARY | 2025-08-28 18:24 | XMS_ITS | Encounter Summary ---
Author Organization [employer] Address 75 [facility] 7t [place] [address] Care Team Providers Care Injection Press Operator Name Role Phone Iqra Nelson MD Primary Care Provider + Johnny Casanova PharmD Unavailable [phone] Toñito Caraballo Unavailable Unavailable Reason for Visit * Reason Comments Med Refill Encounter Details Date Type Department Care Team (Late st Contact Info) Description 02/26/2023 Refill [facility] MEDICINE [address] [place] [address] Toñito Caraballo FNP Major depressive disorder, recurrent, [...] documented as of this encounter Care Teams Injection Press Operator Relationship Specialty Start Date End Date Iqra Nelson MD [address] [place] [address] 41716 PCP - General Family Medicine 12/05/16 04/08/24 Johnny Casanova PharmD [address] [place] [address] 42423 Pharmacist Internal Medicine 09/26/22 Toñito Caraballo FNP [address] [place] [address] 48678 Nurse Practitioner Family Medicine 08/08/23 documented as of this encounter
--- OUTSIDE RECORDS SUMMARY | 2025-08-28 18:24 | XMS_ITS | Encounter Summary ---
Author Organization [employer] Address 75 [facility] 7t [place] [address] Care Team Providers Care Nutrition Coordinator Name Role Phone Iqra Nelson MD Primary Care Provider + Johnny Casanova PharmD Unavailable [phone] Toñito Caraballo LATH TIER Unavailable Unavailable Encounter Details Date Type Department Care Team ([facility] st Contact Info) Description 03/08/2023 Abstract [facility] MEDICINE [address] [place], [place] [phone] Iqra Nelson MD [address] [place], [place] [phone] Social History Tobacco Use Types Packs/Day Years [...] documented as of this encounter Care Teams Nutrition Coordinator Relationship Specialty Start Date End Date Iqra Nelson MD [address] [place] [address] PCP - General Family Medicine 12/05/16 04/08/24 Johnny Casanova PharmD [address] [place] [address] 39500 Pharmacist Internal Medicine 09/26/22 Toñito Caraballo FNP [address] [place] [address] 28031 Nurse Practitioner Family Medicine 08/08/23 documented as of this encounter
== END 2025-08-28 13:05 | disposition home or self-care (01) ==
LOC: HO.HPS 12:46
PROVIDERS: PCP Internal Medicine; Visit Provider Internal Medicine Pulmonary Disease
DX: J45.40 Moderate persistent asthma, uncomplicated (principal); Z91.09 Other allergy status, other than to drugs and biological substances
CPT/HCPCS: 99214

== ENCOUNTER → 2025-08-28 12:45 | Outpatient (BNVA) | payer OTHER, SELFPAY | PROVIDERS: PCP Internal Medicine; Visit Provider Internal Medicine Pulmonary Disease | DX: J45.40 Moderate persistent asthma, uncomplicated (principal); Z91.09 Other allergy status, other than to drugs and biological substances; Z79.899 Other long term (current) drug therapy | CPT/HCPCS: 99212 ==

== ENCOUNTER 2025-09-02 12:56 | Outpatient (AMB) | payer OTHER, SELFPAY ==
--- NOTE | 2025-09-02 13:06 | MHC.OFFVIS ---
Vital Signs 09/02/25 13:07 Height 4 ft 11 in Weight 166 lb 3.657 oz BMI 33.6 BP 131/60 Blood Pressure Location Lt brachial Position Sitting Pulse 70 Intake Visit Reasons: 8wk Intake Note: Ada returns to in office follow up for abd bloating. CC: Patient c/o hearburn, a lot of gas, acid reflux, abdominal pain, and frequent BMs with pasty stools. Per patient she did not receive the Sucralfate due to some clarification needed. Ocean Export Agent Required: No Accompanied by: Self / Same As Patient Allergies cephalexin Allergy (Severe, Verified 09/02/25 13:22) Rash seafood Allergy (Severe, Verified 09/02/25 13:22) Anaphylaxis vancomycin (VANCOMYCIN) Allergy (Severe, Verified 09/02/25 13:22) ANAPHYLAXIS, hives aspirin (ASPIRIN) Allergy (Intermediate, Verified 09/02/25 13:22) rash, asthma codeine (CODEINE) Allergy (Mild, Verified 09/02/25 13:22) rash egg (EGGS) Allergy (Mild, Verified 09/02/25 13:22) VOMITING peanut (PEANUTS) Allergy (Mild, Verified 09/02/25 13:22) HIVES,DIARRHEA amoxicillin (From Augmentin) Allergy (Verified 09/02/25 13:22) hives, swelling, difficulty breathing clavulanic acid (From Augmentin) Allergy (Verified 09/02/25 13:22) hives, swelling mushroom Allergy (Verified 09/02/25 13:22) Rash lactose Adverse Reaction (Intermediate, Verified 09/02/25 13:22) diarrhea cepha mixlexin Allergy (Intermediate, Uncoded 08/12/25 13:36) racing heart, rash HPI HPI 8wk: Details: Assessment & Plan (1) GERD (gastroesophageal reflux disease): Code(s): K21.9 - Gastro-esophageal reflux disease without esophagitis Category: Medical Qualifiers: Esophagitis presence: esophagitis presence not specified Qualified Code(s): K21.9 - Gastro-esophageal reflux disease without esophagitis (2) Irritable bowel syndrome with both constipation and diarrhea: Comment: now more bile salt diarrhea since she is status post cholecystectomy Code(s): K58.2 - Mixed irritable bowel syndrome Category: Medical (3) Abdominal bloating: Code(s): R14.0 - Abdominal distension (gaseous) Category: Medical (4) Nausea and vomiting: Code(s): R11.2 - Nausea with vomiting, unspecified Category: Medical Plan on omeprazole, dicyclomine, and the Creon. Simethicone made her bloating feel worse. - The patient is a 64-year-old female presenting with chronic diarrhea and bloating. I found no reason for her bloating in terms of gas trapping or thyroid issues, and she only has a moderate stool burden. With this I think the only reason that I can fathom is that she has irritation of both the small and large intestines from bile salt after her cholecystectomy. In the past we have had difficulty managing what is actually IBS-M utilizing either Carafate or cholestyramine for any length of time cause constipation. We even tried half a pill daily. What I suggest is that we try half a pill Sunday and Sunday and see if we can find a weight of balance for symptoms and give her relief. She gets some relief from bloating with the dicyclomine, which she takes also for her periumbilical pain, but she can not take it too often because it makes her a little bit drowsy. - Reports diarrhea approximately three to four times a day, with intermittent constipation occurring once a week. - History of cholecystectomy, which may be contributing to symptoms through bile overproduction. - Symptoms include discomfort and bloating in the abdominal region. - Past interventions include sucralfate for chronic diarrhea leading to constipation, despite attempts to adjust dosage. - Reports a 6-pound weight gain potentially linked to peripheral edema from Prolia treatment. - Cardiovascular evaluation revealed transient episodes of tachycardia and high blood pressure, with no structural heart disease concerns. ROV 8 weeks Medications: New sucralfate (Carafate) M,W,F only in am orally 2 times a day; 7 tabs 3RF R11.2 - Nausea with vomiting, unspecified TODAY'S VISIT [facility] Medical History Calcaneal spur, left foot Bilateral foot pain Plantar fasciitis of left foot Metatarsalgia, right foot Physical exam Urinary pain Rotator cuff tendonitis Chest pain Diarrhea Dyspnea on exertion History of pulmonary embolism Encounter for screening examination for sexually transmitted disease Women's annual routine gynecological examination Abdominal bloating Acute diarrhea COVID-19 Pulmonary embolism Pulmonary embolism Vaginal itching Hx of human papillomavirus infection Candidiasis of mouth and esophagus Abdominal cramping Pneumonia Bile salt-induced diarrhea History of pilonidal cyst Gastritis IBS (irritable bowel syndrome) Hypertension Pre-eclampsia Irritable bowel syndrome with both constipation and diarrhea Gallstones Surgical History H/O cervical polypectomy Hx of esophagogastroduodenoscopy H/O colonoscopy History of surgical removal of pilonidal cyst S/P tonsillectomy History of section History of cholecystectomy Family History Father Heart attack GERD (gastroesophageal reflux disease) Peptic ulcer disease Mother CHF (congestive heart failure) Afib Diverticulitis History of bowel resection Hypothyroid COVID-19 Maternal Aunt Diabetes Maternal Uncle Cancer Maternal Grandmother Cancer Brother Mental health disorder Social History Household Members: Spouse Housing: Apartment Are you a primary hemodialysis patient care specialist to a significant other at home: No Do you presently have visiting nurse or other home services: Yes (phone visits) Alcohol intake: former Patient Tobacco Use Status: Never used Tobacco e-Cigarette/Vaping Use: Never Used Second Hand Smoke Exposure: No service: No Current occupational status: retired Cognitive needs: No Hearing needs: No Vision needs: No Female Reproductive History Menstrual Age of Menarche: 10 Physical Exam Vital Signs: Last Vital Signs Pulse 70 09/02/25 13:07 BP 131/60 09/02/25 13:07 BMI result Body Mass Index 33.6 Assessment & Plan Assessment & Plan (1) Irritable bowel syndrome with both constipation and diarrhea: Comment: now more bile salt diarrhea since she is status post cholecystectomy Code(s): K58.2 - Mixed irritable bowel syndrome Category: Medical (2) Nausea and vomiting: Code(s): R11.2 - Nausea with vomiting, unspecified Category: Medical (3) GERD (gastroesophageal reflux disease): Code(s): K21.9 - Gastro-esophageal reflux disease without esophagitis Category: Medical Qualifiers: Esophagitis presence: esophagitis presence not specified Qualified Code(s): K21.9 - Gastro-esophageal reflux disease without esophagitis (4) Abdominal bloating: Code(s): R14.0 - Abdominal distension (gaseous) Category: Medical Plan on omeprazole, dicyclomine, and the Creon. Simethicone made her bloating feel worse. AT THE LAST APPOINTMENT WE ADDED SUCRALFATE Subjective Patient presents for persistent reflux and bloating. Reports that everything she eats triggers reflux with significant burping and pain; symptoms have been severe enough at times to induce vomiting. She has been taking omeprazole more frequently, sometimes dosing 4 hours apart, with inadequate relief. At prior visit, I initiated sucralfate for suspected bile-related reflux, but the pharmacy did not dispense due to an sales order processor issue, so she has not started it. She also reports a history of asthma and recently completed azithromycin prophylaxis through yesterday. Objective Assessment & Plan Reflux symptoms, suspected bile reflux: Ongoing refractory reflux with postprandial exacerbation, persistent bloating, excessive belching, and episodic emesis despite frequent omeprazole use. Prior plan to trial sucralfate was not implemented due to pharmacy error. - Resent sucralfate prescription as intended. Start with half a tablet, may increase to one tablet as needed for symptom control. Take at midday (around noon) from other medications. - Add famotidine (Pepcid) in the meantime for additional acid suppression. - Follow up after the holidays, approximately 8 weeks, to reassess response and adjust therapy as needed. Medications: New famotidine (Pepcid) 20 mg PO BID 60 tabs 3RF Changed From sucralfate (Carafate) M,W,F only in am orally 2 times a day; 24 tabs 3RF R11.2 - Nausea with vomiting, unspecified To sucralfate (Carafate) 2 grams (2 x 1 gram) PO QNOON 60 tabs 3RF R11.2 - Nausea with vomiting, unspecified Coding Level of Care Code Est Pt Level 3 (26686) Diagnoses Irritable bowel syndrome with both constipation and diarrhea K58.2 Nausea and vomiting R11.2 Gastroesophageal reflux disease, unspecified whether esophagitis present K21.9 Esophagitis presence: esophagitis presence not specified Abdominal bloating R14.0
[2025-09-02 13:07] VITALS: BP 131/60; PULSE 70; BMI 33.6
--- OUTSIDE RECORDS SUMMARY | 2025-09-02 16:59 | XMS_ITS | Encounter Summary ---
Author Organization [employer] Address 75 [facility] 7t [place] [address] Care Team Providers Care Computer Recycling Worker Name Role Phone Iqra Nelson MD Primary Care Provider + Johnny Casanova PharmD Unavailable [phone] Toñito Caraballo Unavailable Unavailable Reason for Visit * Reason Onset Date Comments Med Refill Appointment 10/11/2023 LVM-Re: her apt for today as [id number] @2pm Encounter Details Date Type Department Care Team (Late st Contact Info) Description 10/11/2023 Refill [facility] MEDICINE [address] [place] [address] Toñito Caraballo FNP Social History Tobacco Use [...] as of this encounter Care Teams Computer Recycling Worker Relationship Specialty Start Date End Date Irqa Nelson MD [address] [place] [address] [phone] PCP - General Family Medicine 12/05/16 04/08/24 Johnny Casanova PharmD [address] [place] [address] 94739 Pharmacist Internal Medicine 09/26/22 Toñito Caraballo FNP [address] [place] [address] 83277 Nurse Practitioner Family Medicine 08/08/23 documented as of this encounter
--- OUTSIDE RECORDS SUMMARY | 2025-09-02 16:59 | XMS_ITS | Encounter Summary ---
Author Organization [employer] Address 75 [facility] 7t [place] [address] Care Team Providers Care Camera Operator Name Role Phone Iqra Nelson MD Primary Care Provider + Johnny Casanova PharmD Unavailable [phone] Toñito Caraballo WELDER/INSTALLER Unavailable Unavailable Encounter Details Date Type Department Care Team ([facility] st Contact Info) Description 02/12/2024 Orders Only [facility] MEDICINE [address] [place] [address] Provider, MD Antoine Social History Tobacco Use [...] documented as of this encounter Care Teams Camera Operator Relationship Specialty Start Date End Date Iqra Nelson MD [address] [place] [address] 17481 PCP - General Family Medicine 12/05/16 04/08/24 Johnny Casanova PharmD [address] [place] [address] [phone] Pharmacist Internal Medicine 09/26/22 Toñito Caraballo FNP [address] [place] [address] 66432 Nurse Practitioner Family Medicine 08/08/23 documented as of this encounter
--- OUTSIDE RECORDS SUMMARY | 2025-09-02 17:00 | XMS_ITS | Encounter Summary ---
Author Organization [employer] Address 75 [facility] 7t [place] [address] Care Team Providers Care Inspector Production Plastic Parts Name Role Phone Iqra Nelson MD Primary Care Provider + Johnny Casanova PharmD Unavailable [phone] Toñito Caraballo WATER PROJECT ENGINEER Unavailable Unavailable Encounter Details Date Type Department Care Team ([facility] st Contact Info) Description 03/08/2023 Abstract [facility] MEDICINE [address] [place], [place] [phone] Iqra Nelson MD [address] [place], [place] [phone] Social History Tobacco Use Types Packs/Day Years [...] documented as of this encounter Care Teams Inspector Production Plastic Parts Relationship Specialty Start Date End Date Iqra Neslon MD [address] [place] [address] PCP - General Family Medicine 12/05/16 04/08/24 Johnny Casanova PharmD [address] [address] 35132 Pharmacist Internal Medicine 09/26/22 Toñito Caraballo FNP [address] [place] [address] 33347 Nurse Practitioner Family Medicine 08/08/23 documented as of this encounter
--- OUTSIDE RECORDS SUMMARY | 2025-09-02 17:00 | XMS_ITS | Encounter Summary ---
Author Organization [employer] Address 75 [facility] 7t [place] [address] Care Team Providers Care Animal Care Specialist Name Role Phone Iqra Nelson MD Primary Care Provider + Johnny Casanova PharmD Unavailable [phone] Toñiot Caraballo Unavailable Unavailable Reason for Visit * Reason Comments Med Refill Encounter Details Date Type Department Care Team (Late st Contact Info) Description 12/28/2022 Refill [facility] MEDICINE [address] [place] [address] Toñito Caraballo FNP Major depressive disorder, recurrent, [...] as of this encounter Care Teams Animal Care Specialist Relationship Specialty Start Date End Date Iqra Nelson MD [address] [place] [address] 72446 PCP - General Family Medicine 12/05/16 04/08/24 Johnny Casanova PharmD [address] [place] [address] 91532 Pharmacist Internal Medicine 09/26/22 Toñito Caraballo FNP [address] [place] [address] 39839 Nurse Practitioner Family Medicine 08/08/23 documented as of this encounter
--- OUTSIDE RECORDS SUMMARY | 2025-09-02 17:00 | XMS_ITS | Clinical Summary ---
Author Organization [employer] Address 75 [facility] 7t [place] [address] Care Team Providers Care Lead Oracle Developer Name Role Phone Johnny Casanova PharmD Unavailable [phone] Toñito Caraballo RESIDENTIAL FINISH CARPENTER Unavailable Unavailable Allergies Active Allergy Reactions Criticality [...] diets. She wants a referral to the optical assistant. Discussed re weight reduction options including exercise, life style modifications, diet, referral to naval architect specialist. Discussed re lower calorie intake, increase [...] retiring, so any issues or concerns, contact [facility]. All her questions were answered [...] EST): Continue estrace cream and fu with FAST FOOD RESTAURANT MANAGER. Refill sent to pharmacy. Assessment & Plan (10/09/2022 2:44 PM EST): Most likely secondary to atrophic vaginitis. -use estrogen cream daily x2 weeks and then 3 times per week. Pneumonia due to COVID-19 virus 08/24/2022 Polyp of cervix 08/24/2022 Assessment & Plan (03/26/2023 2:56 PM EDT): s/p resection by FAST FOOD RESTAURANT MANAGER, more than a year ago, last PAP was normal refer to FAST FOOD RESTAURANT MANAGER second opinion due to persistent dyspareunia Postcoital bleeding 08/24/2022 Assessment & Plan (03/26/2023 3:04 PM EDT): See previous issue and refer to FAST FOOD RESTAURANT MANAGER Pruritus 08/24/2022 Right upper quadrant pain [...] q2wk + albuterol PRN and FU w/ natural resources manager Decline flue and Covid IZ today, [...] 12:00 AM EST) Triglycerides 128 <150 mg/dL [facility] Comment:Desirable Triglyceri de: less than 150 mg/dLBorderline High Triglyceride 150-199 mg/dLHigh Triglyceride: 200-499 mg/dLVery High Triglyceride: greater than or equal to 5OO mg/dL Cholesterol 169 <200 mg/dL [facility] Comment:Desirable Cholestero l: less than 200 mg/dLBorderline High Cholesterol: 200-239 mg/dLHigh Cholesterol: greater than 239 mg/dL LDL Cholesterol Calculated 82 <100 mg/dL [facility] Comment:Desirable LDL: less than 100 mg/dLNear Optimal/Above Optimal LDL: 110- 129 mg/dLBorderline High LDL: 130-159 mg/dLHigh LDL: 160-189 mg/dLVery High LDL: greater than or equal to 190 mg/dL HDL Cholesterol 62 >40 mg/dL [facility] Comment:Desirable HDL: great er than 40 mg/dL Note: This HDL assay may give artificially low results in patients with liver disease. Blood 11/08/2023 11/08/2023 Iqra Nelson MD LAB BLOOD ORDERABLES Fin al Result [facility] [address] [place] [address] [phone] * HPV mRNA E6/E7 w/Reflex to HPV Genotypes 16, 18/45 (05/31/2023 1:12 PM EDT) HPV nRNA E6/E7 Not Detected Not Detected [facility] Comment:Methodology: Transcr iption-Mediated AmplificationThis assay detects E6/E7 viral messenger RNA (mRNA) from 14high-risk HPV types (16,18,31,33,35,39,45,51,52,56,58,59,66,68).Cervical sources are required for HPV testing.If a vaginal source from a patient who has had atotal hysterectomy with removal of cervix wassubmitted, please contact the testing laboratoryfor alternative testing options.For additional information, please refer [email or web address](This link if provided for information/educational purposes only.)THIS TEST WAS PERFORMED AT:[facility] [place] [phone] HARRISON MD HPV mRNA E6/E7 [facility] HPV 16 RNA [facility] HPV 18/45 RNA TNP [facility] 05/31/2023 1:12 PM EDT 06/01/2023 9:00 AM EDT us [facility] External Provider LAB CYT OLOGY ORDERABLES Final Result [facility] [address] [place] [phone] * Pap Smear (05/31/2023 1:12 PM EDT) 05/31/2023 1:12 PM EDT 06/01/2023 9:00 AM EDT Narrative [facility] - 06/12/2023 1:57 PM EDT ----- ------- Name: Yoselin Rodríguez Age/Sex: 62/F : 1960 Unit#: [id number] Attend Dr: Ale Francisco CNM Re05/31/23 Status: DEP REF Location: [facility] Disch: ----- ------- SPEC : [id number] RECD: 06/01/23 STATUS: BLAYNE BLAIR NUM: [id number] AGATHA: 05/31/23-[address] [facility] [address]: Ale Francisco CNM ENTERED: 06/01/23-1102 [...] 59, 66, 68) HPV testing performed by [facility], [place], [place]. See reference laboratory portion of the EMR for entire report. Clinical Information LMP: No menses Previous PAP test: 07/19/21, abnormal Other history: +HPV, personal history of other infectious and parasitic diseases Material Received ThinPrep-Cervical Copies To: Iqra Nelson MD [address] [place] [id number] [address] Lee [address] [place] [phone] ----- ------- Signed (signature on file) Yajaira Dash 06/12/23 1357 ----- ------- END OF REPORT [facility] External Provider LAB CYT KIRSTIE ORDERABLES Final Result [facility] [address] [place] [address] [phone] * Mammography Report 1 (04/21/2021 1:15 [...] Most Recently Relevant to Health Maintenance Insurance [facility] ONE CARE < 65 [place] [place] [id number] [facility] Care Teams Lead Oracle Developer Relationship Specialty Start Date End Date Johnny Casanova, RachelD [address] [place] [address] Pharmacist Internal Medicine 09/26/22 Toñito Caraballo FNP [address] [place] [address] Nurse Practitioner Family Medicine 08/08/23
--- OUTSIDE RECORDS SUMMARY | 2025-09-02 17:00 | XMS_ITS | Encounter Summary ---
Author Organization [employer] Address [address] [facility] 7t [place] [address] Care Team Providers Care Animation Camera Operator Name Role Phone Iqra Nelson MD Primary Care Provider + Johnny Casanova PharmD Unavailable [phone] Toñito Caraballo Unavailable Unavailable Reason for Visit * Reason Comments Med Refill Encounter Details Date Type Department Care Team (Late st Contact Info) Description 07/20/2023 Refill [facility] MEDICINE [address] [place] [address] Toñito Caraballo FNP Social History Tobacco Use [...] documented as of this encounter Care Teams Animation Camera Operator Relationship Specialty Start Date End Date Iqra Nelson MD [address] [place] [address] PCP - General Family Medicine 12/05/16 04/08/24 Johnny Casanova PharmD [address] [place] [address] Pharmacist Internal Medicine 09/26/22 Toñito Caraballo FNP [address] [place] [address] Nurse Practitioner Family Medicine 08/08/23 documented as of this encounter
--- OUTSIDE RECORDS SUMMARY | 2025-09-02 17:00 | XMS_ITS | Clinical Summary ---
Author Organization [facility] Address [address] [place] [phone] Phone Care Team Providers Care Blindstitch Lapel Padder Name Role Phone Iqra Nelson MD Primary [...] file Medical Devices Not on file Insurance [facility] MEDICARE PART A & B [place] & [place] PART A & B [facility]IC[facility] PART A & B [place] MED[place] PART A & [place] PART A & B Care Teams Blindstitch Lapel Padder Relationship Specialty Start Date End Date Iqra Nelson MD [address] [place] [address] [address] [place] [address] PCP - General Internal Medicine 10/19/20 Additional Source Comments The information contained in this document represents components of the legal health record. It is not the complete legal health record.[facility]
--- OUTSIDE RECORDS SUMMARY | 2025-09-02 17:00 | XMS_ITS | Encounter Summary ---
Author Organization [employer] Address 75 [facility] 7t [place] [address] Care Team Providers Care Hotel Room Attendant Name Role Phone Iqra Nelson MD Primary Care Provider + Johnny Casanova PharmD Unavailable [phone] Toñito Caraballo Unavailable Unavailable Reason for Visit * Reason Comments Med Refill Encounter Details Date Type Department Care Team (Late st Contact Info) Description 04/22/2023 Refill [facility] MEDICINE [address] [place] [phone] Toñito Caraballo FNP Social History Tobacco Use [...] as of this encounter Care Teams Hotel Room Attendant Relationship Specialty Start Date End Date Iqra Nelson MD [address] [place] [address] PCP - General Family Medicine 12/05/16 04/08/24 Johnny Casanova PharmD [address] [place] [address] Pharmacist Internal Medicine 09/26/22 Toñito Caraballo FNP [address] [place] [address] Nurse Practitioner Family Medicine 08/08/23 documented as of this encounter
--- OUTSIDE RECORDS SUMMARY | 2025-09-02 17:00 | XMS_ITS | Encounter Summary ---
Author Organization [employer] Address 75 [facility] 7t [place] [address] Care Team Providers Care Molding Process Technician Name Role Phone Iqra Nelson MD Primary Care Provider + Johnny Casanova PharmD Unavailable [phone] Toñito Caraballo AUTOMATIC WHEEL LINE OPERATOR Unavailable Unavailable Encounter Details Date Type Department Care Team ([facility] Contact Info) Description 09/26/2022 Orders Only [facility] MEDICINE [address] [place] [address] Johnny Casanova, PharmD [address] [place] [address] Social History Tobacco Use Types Packs/Day Years [...] documented as of this encounter Care Teams Molding Process Technician Relationship Specialty Start Date End Date Iqra Nelson MD [address] [place] [address] PCP - General Family Medicine 12/05/16 04/08/24 Johnny Casanova, PharmD [address] [place] [address] Pharmacist Internal Medicine 09/26/22 Toñito Caraballo FNP [address] [place] [address] Nurse Practitioner Family Medicine 08/08/23 documented as of this encounter
--- OUTSIDE RECORDS SUMMARY | 2025-09-02 17:00 | XMS_ITS | Encounter Summary ---
Author Organization [employer] Address 75 [facility] 7t [place] [address] Care Team Providers Care Irrigation Technician Name Role Phone Iqra Nelson MD Primary Care Provider + Johnny Casanova PharmD Unavailable [phone] Toñito Caraballo OVEN PRESS TENDER Unavailable Unavailable Encounter Details Date Type Department Care Team ([facility] st Contact Info) Description 10/10/2022 Orders Only [facility] MEDICINE [address] [place], [place] [phone] Iqra Nelson MD 230 [place], [place] [phone] Vitamin D deficiency (Primary Dx); Senile osteoporosis [...] documented as of this encounter Care Teams Irrigation Technician Relationship Specialty Start Date End Date Iqra Nelson MD [address] [place] [phone] PCP - General Family Medicine 12/05/16 04/08/24 Johnny Casanova, Ti [address] [place] [phone] Pharmacist Internal Medicine 09/26/22 Toñito Caraballo FNP [address] [place] [address] Nurse Practitioner Family Medicine 08/08/23 documented as of this encounter
--- OUTSIDE RECORDS SUMMARY | 2025-09-02 17:00 | XMS_ITS | Encounter Summary ---
Author Organization [employer] Address [address] [facility] 7t [place] [address] Care Team Providers Care Paint Grinder Name Role Phone Iqra Nelson MD Primary Care Provider + Johnny Casanova PharmD Unavailable [phone] Toñito Caraballo Unavailable Unavailable Reason for Visit * Reason Comments Med Refill Encounter Details Date Type Department Care Team (Late st Contact Info) Description 02/26/2023 Refill [facility] MEDICINE [address] [place] [address] Toñito Caraballo FNP Major depressive disorder, recurrent, [...] documented as of this encounter Care Teams Paint Grinder Relationship Specialty Start Date End Date Iqra Nelson MD [address] [place] [address] PCP - General Family Medicine 12/05/16 04/08/24 Johnny Casanova PharmD [address] [place] [phone] Pharmacist Internal Medicine 09/26/22 Toñito Caraballo FNP [address] [place] [address] Nurse Practitioner Family Medicine 08/08/23 documented as of this encounter
--- OUTSIDE RECORDS SUMMARY | 2025-09-02 17:00 | XMS_ITS | Encounter Summary ---
Author Organization [employer] Address 75 [facility] 7t [place] [address] Care Team Providers Care Service Bar Cashier Name Role Phone Iqra Nelson MD Primary Care Provider + Johnny Casanova PharmD Unavailable [phone] Toñito Caraballo Unavailable Unavailable Reason for Visit * Reason Comments Med Refill Encounter Details Date Type Department Care Team ([facility] st Contact Info) Description 02/21/2023 Refill [facility] MEDICINE [address] [place] [address] Toñito Caraballo FNP Social History Tobacco Use [...] as of this encounter Care Teams Service Bar Cashier Relationship Specialty Start Date End Date Iqra Nelson MD [address] [place] [address] PCP - General Family Medicine 12/05/16 04/08/24 Johnny Casanova PharmD [address] [place] [address] Pharmacist Internal Medicine 09/26/22 Toñito Caraballo FNP [address] [place] [address] Nurse Practitioner Family Medicine 08/08/23 documented as of this encounter
== END 2025-09-02 13:41 | disposition home or self-care (01) ==
LOC: HO.HGI 12:56
PROVIDERS: PCP Internal Medicine; Visit Provider Nurse Practitioner
DX: K58.2 Mixed irritable bowel syndrome (principal); R11.2 Nausea with vomiting, unspecified; K21.9 Gastro-esophageal reflux disease without esophagitis; R14.0 Abdominal distension (gaseous)
CPT/HCPCS: 99213

== ENCOUNTER → 2025-09-02 12:56 | Outpatient (BNVA) | payer OTHER, SELFPAY | PROVIDERS: PCP Internal Medicine; Visit Provider Nurse Practitioner | DX: K58.2 Mixed irritable bowel syndrome (principal); K21.9 Gastro-esophageal reflux disease without esophagitis; R11.2 Nausea with vomiting, unspecified; R14.0 Abdominal distension (gaseous) | CPT/HCPCS: 99212 ==

== ENCOUNTER 2025-09-15 12:15 | Outpatient (AMB) | payer OTHER, SELFPAY ==
--- NOTE | 2025-09-15 12:47 | A.OFFVIS_ITS ---
Vital Signs 09/15/25 12:48 Height 4 ft 11 in Weight 166 lb BMI 33.5 Intake Visit Reasons: Rt Metatarsalgia & Plantar Fasciitis Intake Note: Yoselin is a 64 year old female who presents today for a follow up on her plantar fasciitis. At her last visit she was advised to perform stretching exercises, prescribed Medrol dose Chetan, and provided with metatarsal pads. Patient reports everything is going well however she notes while she was taking the Medrol dose Chetan her blood pressure had gone up and her face had swelled up as well. Metartarsal pad has been helping as well. Patient mentions due to the holidays she has been unable to perform the stretching exercise's regularly. Overall she has seen improvement with her pain. Allergies cephalexin Allergy (Severe, Verified 09/15/25 12:48) Rash seafood Allergy (Severe, Verified 09/15/25 12:48) Anaphylaxis vancomycin (VANCOMYCIN) Allergy (Severe, Verified 09/15/25 12:48) ANAPHYLAXIS, hives aspirin (ASPIRIN) Allergy (Intermediate, Verified 09/15/25 12:48) rash, asthma codeine (CODEINE) Allergy (Mild, Verified 09/15/25 12:48) rash egg (EGGS) Allergy (Mild, Verified 09/15/25 12:48) VOMITING peanut (PEANUTS) Allergy (Mild, Verified 09/15/25 12:48) HIVES,DIARRHEA amoxicillin (From Augmentin) Allergy (Verified 09/15/25 12:48) hives, swelling, difficulty breathing clavulanic acid (From Augmentin) Allergy (Verified 09/15/25 12:48) hives, swelling mushroom Allergy (Verified 09/15/25 12:48) Rash lactose Adverse Reaction (Intermediate, Verified 09/15/25 12:48) diarrhea cepha mixlexin Allergy (Intermediate, Uncoded 08/12/25 13:36) racing heart, rash HPI Comments Details: The patient is a 64 year old female presenting for a follow up for right foot metatarsalgia and plantar fasciitis. The patient reports that using metatarsal pads provides some relief from the pain. She recently completed the Medrol Dose chetan, which temporarily relieved the pain, but symptoms returned after finishing the course. She experienced side effects from the Medrol, including elevated blood pressure and increased swelling. The pain has limited her ability to walk and climb stairs. She denies any new pedal injuries. Denies any other pedal concerns. [facility] Medical History Calcaneal spur, left foot Bilateral foot pain Plantar fasciitis of left foot Metatarsalgia, right foot Physical exam Urinary pain Rotator cuff tendonitis Chest pain Diarrhea Dyspnea on exertion History of pulmonary embolism Encounter for screening examination for sexually transmitted disease Women's annual routine gynecological examination Abdominal bloating Acute diarrhea COVID-19 Pulmonary embolism Pulmonary embolism Vaginal itching Hx of human papillomavirus infection Candidiasis of mouth and esophagus Abdominal cramping Pneumonia Bile salt-induced diarrhea History of pilonidal cyst Gastritis IBS (irritable bowel syndrome) Hypertension Pre-eclampsia Irritable bowel syndrome with both constipation and diarrhea Gallstones Surgical History H/O cervical polypectomy Hx of esophagogastroduodenoscopy H/O colonoscopy History of surgical removal of pilonidal cyst S/P tonsillectomy History of section History of cholecystectomy Family History Father Heart attack GERD (gastroesophageal reflux disease) Peptic ulcer disease Mother CHF (congestive heart failure) Afib Diverticulitis History of bowel resection Hypothyroid COVID-19 Maternal Aunt Diabetes Maternal Uncle Cancer Maternal Grandmother Cancer Brother Mental health disorder Social History Household Members: Spouse Housing: Apartment Are you a primary career services manager to a significant other at home: No Do you presently have visiting nurse or other home services: Yes (phone visits) Alcohol intake: former Patient Tobacco Use Status: Never used Tobacco e-Cigarette/Vaping Use: Never Used Second Hand Smoke Exposure: No service: No Current occupational status: retired Cognitive needs: No Hearing needs: No Vision needs: No Female Reproductive History Menstrual Age of Menarche: 10 Review of Systems Const Details: - Constitutional: Reports weight gain. - Musculoskeletal: Reports persistent pain in the right foot, specifically the ball of the foot which worsens with walking. - Neurological: Reports a sensation of pins and needles in her feet. - Respiratory: Reports a history of asthma. - Endocrine: Reports frequent use of prednisone for asthma. - Allergic/Immunologic: Reports no known allergies but notes a potential interaction with NSAIDs due to her asthma. - Neurological: Reports chronic pain associated with fibromyalgia. All systems reviewed & are unremarkable except as noted in HPI and below Physical Exam Vital Signs: BMI result Body Mass Index 33.5 Extrem Other: B/L LE Focused Physical Exam: Derm: No open lesions, abrasions, or wounds noted. No clinical signs of infection. No ecchymosis, erythema, or discoloration noted. Skin supple turgor WNL. Vasc: DP/PT pulses palpable. CFT < 3 secs. Temp gradient warm to warm. Pedal hair absent. Mild varicosities noted. Neuro: Protective sensations grossly intact. MSK: Pain on palpation to the submet 3, 4, and 5 area. Positive iraida's sign. Positive squeeze test. No crepitus or fluctuance noted. ROM of the forefoot painful. ROM of the hindfoot and ankle WNL. Antalgic gait noted unassisted. Pain on palpation to the plantar aspect of the left heel, worse to the medial calcaneal tubercle. Negative windlass mechanism. MMT 5/5. Office Procedures AMB Podiatry Dressing Details of Procedure: Applied metatarsal pad to the patient shoes bilaterally for offloading purposes of the metatarsal head area. 87888 - Strapping of foot/ankle Procedure code (CPT) selection complete Results Reviewed Results Reviewed: Podiatry read of right foot xray (04/22/25): Os peroneum noted. Plantar calcaneal spur noted. No acute fractures or dislocations noted. Right foot xray (04/22/25): FINDINGS: Three views of the right foot are submitted. Osseous mineralization is normal. There is no fracture or dislocation. The joint spaces are preserved. There is a plantar calcaneal spur. The soft tissues are unremarkable. IMPRESSION: No evidence of fracture of the right foot. Assessment & Plan Assessment & Plan (1) Metatarsalgia, right foot: Code(s): M77.41 - Metatarsalgia, right foot Category: Medical (2) Bilateral foot pain: Code(s): M79.671 - Pain in right foot; M79.672 - Pain in left foot Category: Medical (3) Plantar fasciitis of left foot: Code(s): M72.2 - Plantar fascial fibromatosis Category: Medical (4) Calcaneal spur, left foot: Code(s): M77.32 - Calcaneal spur, left foot Category: Medical Plan Patient was informed and verbally consented to the use of an ambient scribe for clinic note documentation during this visit. I discussed with the patient that her persistent right foot pain is likely a com bination of the traumatic injury and metatarsalgia, noting that her severe osteoporosis can also play a role in her symptoms and bone health. I explained the plan to manage her pain conservatively with continued use of metatarsal pads, a new prescription for topical lidocaine patches, and as-needed Tylenol. She decided against an oral anti-inflammatory like meloxicam due to her history of asthma. I also discussed future options if these measures are not sufficient, including a cortisone injection. The patient expressed concerns about the pain of injections and their temporary effectiveness, so we agreed to defer this option. Physical therapy was also presented as a possibility, which she is open to considering. The patient will follow up in about two months to reassess her condition. - For right foot pain, the patient was advised to continue using metatarsal pads to offload pressure. Applied metatarsal pads to her shoes B/L. - Prescribed lidocaine patches. - The patient will continue taking Tylenol as needed for pain. - Will consider cortisone injection and PT if pain persists. RTC in 2 months. Orders: Orders AMB Podiatry Dressing 09/15/25 M77.41 - Metatarsalgia, right foot, M79.671 - Pain in right foot, M79.672 - Pain in left foot Medications: New lidocaine 5% leave on most painful area for up to 12 hrs 1 patch topical DAILY 30 ea 1RF M77.41 - Metatarsalgia, right foot Coding Level of Care Code Est Pt Level 4 (36795) Diagnoses Metatarsalgia, right foot M77.41 Bilateral foot pain M79.671; M79.672 Plantar fasciitis of left foot M72.2 Calcaneal spur, left foot M77.32 CPT Codes Podiatry Dressing - CPT: 20600 - Strapping of foot/ankle ([id number]) Time Spent (min) 30
[2025-09-15 12:48] VITALS: BMI 33.5
--- OUTSIDE RECORDS SUMMARY | 2025-09-15 16:13 | XMS_ITS | Encounter Summary ---
Author Organization [employer] Address 75 [facility] 7t [place] [address] Care Team Providers Care Public Policy Coordinator Name Role Phone Iqra Nelson MD Primary Care Provider + Johnny Casanova PharmD Unavailable [phone] Toñito Caraballo Unavailable Unavailable Reason for Visit * Reason Onset Date Comments Med Refill Appointment 10/11/2023 LVM-Re: her apt for today as [id number] @2pm Encounter Details Date Type Department Care Team (Late st Contact Info) Description 10/11/2023 Refill [facility] MEDICINE [address] [place] [address] Toñito Caraballo FNP Social History Tobacco Use [...] documented as of this encounter Care Teams Public Policy Coordinator Relationship Specialty Start Date End Date Iqra Nelson MD [address] [place] [address] PCP - General Family Medicine 12/05/16 04/08/24 Johnny Casanova PharmD [address] [place] [address] Pharmacist Internal Medicine 09/26/22 Toñito Caraballo FNP [address] [place] [address] Nurse Practitioner Family Medicine 08/08/23 documented as of this encounter
--- OUTSIDE RECORDS SUMMARY | 2025-09-15 16:14 | XMS_ITS | Encounter Summary ---
Author Organization [employer] Address 75 [facility] 7t [place] [address] Care Team Providers Care Fitter Helper Name Role Phone Iqra Nelson MD Primary Care Provider + Johnny Casanova PharmD Unavailable [phone] Toñito Caraballo Unavailable Unavailable Reason for Visit * Reason Comments Med Refill Encounter Details Date Type Department Care Team ([facility] st Contact Info) Description 02/21/2023 Refill [facility] MEDICINE [address] [place] [address] Toñito Caraballo FNP Social History Tobacco Use [...] Date End Date Iqra Nelson MD [address] [place] [address] PCP - General Family Medicine 12/05/16 04/08/24 Johnny Casanova PharmD [address] [place] [address] Pharmacist Internal Medicine 09/26/22 Toñito Caraballo FNP [address] [place] [address] Nurse Practitioner Family Medicine 08/08/23 documented as of this encounter
--- OUTSIDE RECORDS SUMMARY | 2025-09-15 16:14 | XMS_ITS | Encounter Summary ---
Author Organization [employer] Address [address] [facility] 7t [place] [address] Care Team Providers Care Trust Mail Clerk Name Role Phone Iqra Nelson MD Primary Care Provider + Johnny Casanova PharmD Unavailable [phone] Toñito Caraballo CLINICAL ACCOUNT MANAGER Unavailable Unavailable Encounter Details Date Type Department Care Team ([facility] st Contact Info) Description 10/10/2022 Orders Only [facility] MEDICINE 230 [place], [place] [phone] Iqra Nelson MD 230 [place], [place] [phone] Vitamin D deficiency (Primary Dx); Senile osteoporosis [...] documented as of this encounter Care Teams Trust Mail Clerk Relationship Specialty Start Date End Date Iqra Nelson MD [address] [place] [address] PCP - General Family Medicine 12/05/16 04/08/24 Johnny Casanova, Ti [address] [place] [address] Pharmacist Internal Medicine 09/26/22 Toñito Caraballo FNP [address] [place] [address] Nurse Practitioner Family Medicine 08/08/23 documented as of this encounter
--- OUTSIDE RECORDS SUMMARY | 2025-09-15 16:14 | XMS_ITS | Clinical Summary ---
Author Organization [employer] Address [address] [facility] 7t [place] [address] Care Team Providers Care Steward/Stewardess Dining Room Name Role Phone Johnny Casanova PharmD Unavailable [phone] Toñito Caraballo JEWELRY BENCH MOLDER Unavailable Unavailable Allergies Active Allergy Reactions Criticality [...] diets. She wants a referral to the building tech. Discussed re weight reduction options including exercise, life style modifications, diet, referral to posting specialist. Discussed re lower calorie intake, increase [...] retiring, so any issues or concerns, contact [facility]. All her questions were answered and I [...] EST): Continue estrace cream and fu with TACTICAL AIR CONTROL PARTY MANAGER. Refill sent to pharmacy. Assessment & Plan (10/09/2022 2:44 PM EST): Most likely secondary to atrophic vaginitis. -use estrogen cream daily x2 weeks and then 3 times per week. Pneumonia due to COVID-19 virus 08/24/2022 Polyp of cervix 08/24/2022 Assessment & Plan (03/26/2023 2:56 PM EDT): s/p resection by TACTICAL AIR CONTROL PARTY MANAGER, more than a year ago, last PAP was normal refer to TACTICAL AIR CONTROL PARTY MANAGER second opinion due to persistent dyspareunia Postcoital bleeding 08/24/2022 Assessment & Plan (03/26/2023 3:04 PM EDT): See previous issue and refer to TACTICAL AIR CONTROL PARTY MANAGER Pruritus 08/24/2022 Right upper quadrant pain [...] q2wk + albuterol PRN and FU w/ music box mechanic Decline flue and Covid IZ today, advised [...] 12:00 AM EST) Triglycerides 128 <150 mg/dL [facility] Comment:Desirable Triglyceri de: less than 150 mg/dLBorderline High Triglyceride 150-199 mg/dLHigh Triglyceride: 200-499 mg/dLVery High Triglyceride: greater than or equal to 5OO mg/dL Cholesterol 169 <200 mg/dL [facility] Comment:Desirable Cholestero l: less than 200 mg/dLBorderline High Cholesterol: 200-239 mg/dLHigh Cholesterol: greater than 239 mg/dL LDL Cholesterol Calculated 82 <100 mg/dL [facility] Comment:Desirable LDL: less than 100 mg/dLNear Optimal/Above Optimal LDL: 110- 129 mg/dLBorderline High LDL: 130-159 mg/dLHigh LDL: 160-189 mg/dLVery High LDL: greater than or equal to 190 mg/dL HDL Cholesterol 62 >40 mg/dL [facility] Comment:Desirable HDL: great er than 40 mg/dL Note: This HDL assay may give artificially low results in patients with liver disease. Blood 11/08/2023 11/08/2023 Iqra Nelson MD LAB BLOOD ORDERABLES Fin al Result [facility] [address] [place] [phone] * HPV mRNA E6/E7 w/Reflex to HPV Genotypes 16, 18/45 (05/31/2023 1:12 PM EDT) HPV nRNA E6/E7 Not Detected Not Detected [facility] Comment:Methodology: Transcr iption-Mediated AmplificationThis assay detects E6/E7 viral messenger RNA (mRNA) from 14high-risk HPV types (16,18,31,33,35,39,45,51,52,56,58,59,66,68).Cervical sources are required for HPV testing.If a vaginal source from a patient who has had atotal hysterectomy with removal of cervix wassubmitted, please contact the testing laboratoryfor alternative testing options.For additional information, please refer [email or web address]/faq/GGN890y5(This link if provided for information/educational purposes only.)THIS TEST WAS PERFORMED AT:[facility] [place] [phone] HARRISON MD HPV mRNA E6/E7 [facility] HPV 16 RNA [facility] HPV 18/45 RNA TNP [facility] 05/31/2023 1:12 PM EDT 06/01/2023 9:00 AM EDT us [facility] External Provider LAB CYT OLOGY ORDERABLES Final Result [facility] [address] [place] [phone] * Pap Smear (05/31/2023 1:12 PM EDT) 05/31/2023 1:12 PM EDT 06/01/2023 9:00 AM EDT Narrative [facility] - 06/12/2023 1:57 PM EDT ----- ------- Name: Yoselin Rodríguez Age/Sex: 62/F : 1960 Unit#: [id number] Attend Dr: Ale Francisco CNM Re05/31/23 Status: DEP REF Location: [facility] Disch: ----- ------- SPEC : [id number] RECD: 06/01/23 STATUS: BLAYNE BLAIR NUM: [id number] AGATHA: 05/31/23-1311 [facility] DR: Ale Francisco CNM ENTERED: 06/01/23-1102 SP [...] 59, 66, 68) HPV testing performed by [facility], [place], [place]. See reference laboratory portion of the EMR for entire report. Clinical Information LMP: No menses Previous PAP test: 07/19/21, abnormal Other history: +HPV, personal history of other infectious and parasitic diseases Material Received ThinPrep-Cervical Copies To: Iqra Nelson MD [address] [place] [phone] [address] Lee [address] [place] [phone] ----- ------- Signed (signature on file) Yajaira Dash 06/12/23 1357 ----- ------- END OF REPORT [facility] External Provider LAB CYT KIRSTIE ORDERABLES Final Result [facility] [address] [place] [phone] * Mammography Report 1 (04/21/2021 1:15 [...] Most Recently Relevant to Health Maintenance Insurance [facility]ARE < 65 SUR[place]A [place] [id number] [facility] Care Teams Steward/Stewardess Dining Room Relationship Specialty Start Date End Date Johnny Casanova, RachelD [address] [place] [address] Pharmacist Internal Medicine 09/26/22 Toñito Caraballo FNP [address] [place] [address] Nurse Practitioner Family Medicine 08/08/23
--- OUTSIDE RECORDS SUMMARY | 2025-09-15 16:14 | XMS_ITS | Encounter Summary ---
Author Organization [employer] Address [address] [facility] 7t [place] [address] Care Team Providers Care Blacksmith Apprentice Name Role Phone Iqra Nelson MD Primary Care Provider + Johnny Casanova PharmD Unavailable [phone] Toñito Caraballo PROGRAM SUPPORT CLERK Unavailable Unavailable Encounter Details Date Type Department Care Team ([facility] Contact Info) Description 09/26/2022 Orders Only [facility] MEDICINE [address] [place] [address] Johnny Casanova, PharmD [address] [place] [address] Social History Tobacco Use Types Packs/Day Years [...] documented as of this encounter Care Teams Blacksmith Apprentice Relationship Specialty Start Date End Date Iqra Nelson MD [address] [place] [address] PCP - General Family Medicine 12/05/16 04/08/24 Johnny Casanova, PharmD [address] [place] [phone] Pharmacist Internal Medicine 09/26/22 Toñito Caraballo FNP [address] [place] [address] Nurse Practitioner Family Medicine 08/08/23 documented as of this encounter
--- OUTSIDE RECORDS SUMMARY | 2025-09-15 16:14 | XMS_ITS | Clinical Summary ---
Author Organization [facility] Address [address] [place] [phone] Phone Care Team Providers Care Oracle Forms Developer Name Role Phone Iqra Nelson MD [...] file Medical Devices Not on file Insurance [facility] MEDICARE PART A & B [place] & [facility] & [place] & [place] A & B Care Teams Oracle Forms Developer Relationship Specialty Start Date End Date Iqra Nelson MD [address] [place] [address] [address] [place] [address] PCP - General Internal Medicine 10/19/20 Additional Source Comments The information contained in this document represents components of the legal health record. It is not the complete legal health record.[facility]
--- OUTSIDE RECORDS SUMMARY | 2025-09-15 16:14 | XMS_ITS | Encounter Summary ---
Author Organization [employer] Address [address] [facility] 7t [place] [address] Care Team Providers Care Fulfillment Coordinator Name Role Phone Iqra Nelson MD Primary Care Provider + Johnny Casaonva PharmD Unavailable [phone] Toñito Caraballo Unavailable Unavailable Reason for Visit * Reason Comments Med Refill Encounter Details Date Type Department Care Team (Late st Contact Info) Description 07/20/2023 Refill [facility] [address] [place] [address] Toñito Caraballo FNP Social History Tobacco Use [...] documented as of this encounter Care Teams Fulfillment Coordinator Relationship Specialty Start Date End Date Iqra Nelson MD [address] [place] [address] PCP - General Family Medicine 12/05/16 04/08/24 Johnny Casanova PharmD [address] [place] [address] Pharmacist Internal Medicine 09/26/22 Toñito Caraballo FNP [address] [place] [address] Nurse Practitioner Family Medicine 08/08/23 documented as of this encounter
--- OUTSIDE RECORDS SUMMARY | 2025-09-15 16:14 | XMS_ITS | Encounter Summary ---
Author Organization [employer] Address [address] [facility] 7t [place] [address] Care Team Providers Care Physician Support Coordinator Name Role Phone Iqra Nelson MD Primary Care Provider + Johnny Casanova PharmD Unavailable [phone] Toñito Caraballo Unavailable Unavailable Reason for Visit * Reason Comments Med Refill Encounter Details Date Type Department Care Team (Late st Contact Info) Description 04/22/2023 Refill [facility] MEDICINE [address] [place] [address] Toñito Caraballo FNP Social History Tobacco Use [...] documented as of this encounter Care Teams Physician Support Coordinator Relationship Specialty Start Date End Date Iqra Nelson MD [address] [place] [address] PCP - General Family Medicine 12/05/16 04/08/24 Johnny Casanova PharmD [address] [place] [address] Pharmacist Internal Medicine 09/26/22 Toñito Caraballo FNP [address] [place] [address] Nurse Practitioner Family Medicine 08/08/23 documented as of this encounter
--- OUTSIDE RECORDS SUMMARY | 2025-09-15 16:14 | XMS_ITS | Encounter Summary ---
Author Organization [employer] Address [address] [facility] 7t [place] [address] Care Team Providers Care Picker And Sorter Load And Unload Name Role Phone Iqra Nelson MD Primary Care Provider + Johnny Casanova PharmD Unavailable [phone] Toñito Caraballo Unavailable Unavailable Reason for Visit * Reason Comments Med Refill Encounter Details Date Type Department Care Team (Late st Contact Info) Description 02/26/2023 Refill [facility] MEDICINE [address] [place] [address] Toñito Caraballo FNP Major depressive disorder, recurrent, [...] documented as of this encounter Care Teams Picker And Sorter Load And Unload Relationship Specialty Start Date End Date Iqra Nelson MD [address] [place] [address] PCP - General Family Medicine 12/05/16 04/08/24 Johnny Casanova PharmD [address] [place] [phone] Pharmacist Internal Medicine 09/26/22 Toñito Caraballo FNP [address] [place] [address] Nurse Practitioner Family Medicine 08/08/23 documented as of this encounter
--- OUTSIDE RECORDS SUMMARY | 2025-09-15 16:14 | XMS_ITS | Encounter Summary ---
Author Organization [employer] Address [address] [facility] 7t [place] [address] Care Team Providers Care Armored Car Guard And Driver Name Role Phone Iqra Nelson MD Primary Care Provider + Johnny Casanova PharmD Unavailable [phone] Toñito Caraballo MANAGER FILTER Unavailable Unavailable Encounter Details Date Type Department Care Team ([facility] Contact Info) Description 03/08/2023 Abstract [facility] MEDICINE [address] [place] [address] Iqra Nelson MD [address] [place] [address] Social History Tobacco Use Types Packs/Day Years [...] documented as of this encounter Care Teams Armored Car Guard And Driver Relationship Specialty Start Date End Date Iqra Nelson MD [address] [place] [address] PCP - General Family Medicine 12/05/16 04/08/24 Johnny Casanova, RachelD [address] [place] [phone] Pharmacist Internal Medicine 09/26/22 Toñito Caraballo FNP [address] [place] [address] Nurse Practitioner Family Medicine 08/08/23 documented as of this encounter
--- OUTSIDE RECORDS SUMMARY | 2025-09-15 16:14 | XMS_ITS | Encounter Summary ---
Author Organization [employer] Address [address] [facility] 7t [place] [address] Care Team Providers Care Rn Intake Name Role Phone Iqra Nelson MD Primary Care Provider + Johnny Casanova PharmD Unavailable [phone] Toñito Caraballo MASTER COASTWISE YACHT Unavailable Unavailable Encounter Details Date Type Department Care Team ([facility] st Contact Info) Description 02/12/2024 Orders Only [facility] MEDICINE [address] [place] [address] Provider, MD Antoine Social History Tobacco Use [...] documented as of this encounter Care Teams Rn Intake Relationship Specialty Start Date End Date Iqra Nelson MD [address] [place] [phone] PCP - General Family Medicine 12/05/16 04/08/24 Johnny Casanova PharmD [address] [place] [phone] Pharmacist Internal Medicine 09/26/22 Toñito Caraballo FNP [address] [place] [address] Nurse Practitioner Family Medicine 08/08/23 documented as of this encounter
--- OUTSIDE RECORDS SUMMARY | 2025-09-15 16:14 | XMS_ITS | Encounter Summary ---
Author Organization [employer] Address [address] [facility] 7t [place] [address] Care Team Providers Care Hand Plate Stacker Name Role Phone Iqra Nelson MD Primary Care Provider + Johnny Casanova PharmD Unavailable [phone] Toñito Caraballo Unavailable Unavailable Reason for Visit * Reason Comments Med Refill Encounter Details Date Type Department Care Team (Late st Contact Info) Description 12/28/2022 Refill [facility] MEDICINE [address] [place] [address] Toñito Caraballo FNP Major depressive disorder, recurrent, [...] documented as of this encounter Care Teams Hand Plate Stacker Relationship Specialty Start Date End Date Iqra Nelson MD [address] [place] [phone] PCP - General Family Medicine 12/05/16 04/08/24 Johnny Casanova PharmD [address] [place] [phone] Pharmacist Internal Medicine 09/26/22 Toñito Caraballo FNP [address] [place] [address] Nurse Practitioner Family Medicine 08/08/23 documented as of this encounter
== END 2025-09-15 13:23 | disposition home or self-care (01) ==
LOC: HO.HPODS 12:15
PROVIDERS: PCP Internal Medicine; Visit Provider Student in an Organized Health Care Education/Training Program
DX: M77.41 Metatarsalgia, right foot (principal); M79.671 Pain in right foot; M79.672 Pain in left foot; M72.2 Plantar fascial fibromatosis; M77.32 Calcaneal spur, left foot
CPT/HCPCS: 29540; 99214

== ENCOUNTER → 2025-09-15 12:15 | Outpatient (BNVA) | payer OTHER, SELFPAY | PROVIDERS: PCP Internal Medicine; Visit Provider Student in an Organized Health Care Education/Training Program | DX: M77.32 Calcaneal spur, left foot (principal); M72.2 Plantar fascial fibromatosis; M77.41 Metatarsalgia, right foot; M79.671 Pain in right foot; M79.672 Pain in left foot | CPT/HCPCS: 29540; 99212 ==